=== PATIENT | female | born 1940 | race Caucasian/White ===

== ENCOUNTER → 2018-05-04 08:32 | Outpatient (CLI) | payer MEDICARE, OTHER, SELFPAY ==
--- NOTE | 2018-05-04 08:33 | BI_ITS ---
MAMMOGRAPHY - BILATERAL SCREENING REASON FOR EXAM: Female, 77 years old. Routine annual screening examination. PERTINENT HISTORY: Non-contributory. TECHNIQUE: Digital bilateral breast claudia (3D mammographic acquisition) in the CC and MLO projections. 2-D mediolateral oblique (MLO) and craniocaudad (CC) views of both breasts were obtained. CAD: Full Field Digital Mammography with Computer Added Detection was performed. COMPARISON: Comparison is made with prior study dated April 22, 2017 and April 06, 2016. FINDINGS: Breast Composition: There are scattered areas of fibroglandular density. There are no dominant masses or suspicious calcifications. No other significant abnormalities are identified. There has been no significant change since the prior study. BI/SCREENING MAMM (CAD), BILAT IMPRESSION: Stable bilateral screening mammogram. Yearly follow-up mammogram recommended. (A) ASSESSMENT CATEGORY: BIRADS Category 1: Negative. A letter regarding these results will be sent to the patient by the facility within 30 days. Approximately 10% of breast cancers are not detected by mammography. A normal mammogram should not delay biopsy of a clinically suspicious abnormality. [id number] Electronically Signed: Justino Zuniga MD at 13:50 EDT Tel [phone], Service support ,
== END ==
PROVIDERS: Family Provider Family Medicine; PCP Family Medicine; Visit Provider Family Medicine
DX: Z12.31 Encounter for screening mammogram for malignant neoplasm of breast (principal)
CPT/HCPCS: 77063; 77067

== ENCOUNTER → 2018-05-08 09:33 | Outpatient (CLI) | payer MEDICARE, OTHER, SELFPAY ==
[2018-05-08 12:26] LABS: Anion Gap 6 (5-15); BUN 27 mg/dL (7-18); Calcium,Total 9.3 mg/dL (8.5-10.1); Chloride 105 mmol/L (98-107); Cholesterol 252 mg/dL (200); Creatinine, Serum 0.93 mg/dL (0.55-1.02); EST Glomerular Filtration Rate 62 mL/min (>60); Est Glom Filt Rate - Afr Amer 75 mL/min (>60); Glucose 97 mg/dL (74-106); High Density Lipoprotein 63 mg/dL; Potassium 3.8 mmol/L (3.5-5.1); Sodium Level 139 mmol/L (136-145); Triglycerides 126 mg/dL; Very Low Density Lipoprotein 25 mg/dL (5-40)
== END ==
PROVIDERS: Family Provider Family Medicine; PCP Family Medicine; Visit Provider Family Medicine
DX: I10 Essential (primary) hypertension (principal)
CPT/HCPCS: 36415; 80048; 80061

== ENCOUNTER → 2018-11-08 10:35 | Outpatient (CLI) | payer MEDICARE, OTHER, SELFPAY ==
[2018-10-10 09:33] VITALS: BMI 27.8
--- NOTE | 2018-11-08 10:41 | RAD_ITS ---
STUDY: X-RAY - RIGHT SHOULDER REASON FOR EXAM: Female, 78 years old. Shoulder pain. TECHNIQUE: 4 view(s) of the shoulder. COMPARISON: None. FINDINGS: Normal glenohumeral articulation. Normal acromioclavicular joint. Normal acromion. Normal humeral head and visualized proximal humerus. The soft tissue structures are unremarkable. Normal visualized pulmonary apex. RAD/Shoulder min 2 Views IMPRESSION: Normal x-ray examination of the shoulder. Electronically Signed: Constantin Macedo MD at 10:36 EST Tel , Service support ,
--- NOTE | 2018-11-08 10:41 | RAD_ITS ---
STUDY: X-RAY - BILATERAL HIPS WITHOUT PELVIS REASON FOR EXAM: Female, 78 years old. Left hip pain. TECHNIQUE: 2 views of the right hip, and 2 views of the left hip were obtained. COMPARISON: None. FINDINGS: There are degenerative changes in the lower lumbar spine. The sacroiliac joints appear to be unremarkable. Right Hip: Normal right femoral head, neck, intertrochanteric region and visualized proximal femur. Normal right acetabulum. Normal right hip joint. There is mild irregularity of the greater trochanter without evidence of acute fracture. Left Hip: Normal left femoral head, neck, intertrochanteric region and visualized proximal femur. Normal left acetabulum. Normal left hip joint. There is mild irregularity of the greater trochanter without evidence for acute fracture. Normal bilateral superior and inferior pubic rami , ischial tuberosities and pubic symphysis. There are mild vascular calcifications. RAD/Hips B/L min 2 views w/ Pelvis IMPRESSION: Degenerative changes in the lower lumbar spine. Unremarkable hip joints. Electronically Signed: Constantin Macedo MD at 10:35 EST Tel , Service support ,
== END ==
PROVIDERS: Family Provider Family Medicine; PCP Family Medicine; Referring Provider Family Medicine; Visit Provider Family Medicine
DX: M25.511 Pain in right shoulder (principal); M25.552 Pain in left hip
CPT/HCPCS: 73030; 73521

== ENCOUNTER → 2018-11-10 06:03 | Outpatient (CLI) | payer MEDICARE, OTHER, SELFPAY ==
[2018-10-10 09:33] VITALS: BMI 27.8
[2018-11-10 08:12] LABS: Anion Gap 11 (5-15); BUN 17 mg/dL (7-18); BUN/Creat Ratio 17.9 RATIO (10-20); Calcium,Total 8.9 mg/dL (8.5-10.1); Chloride 106 mmol/L (98-107); Cholesterol 226 mg/dL (200); Creatinine, Serum 0.95 mg/dL (0.55-1.02); EST Glomerular Filtration Rate 61 mL/min (>60); Est Glom Filt Rate - Afr Amer 73 mL/min (>60); Glucose 92 mg/dL (74-106); High Density Lipoprotein 70 mg/dL; Potassium 3.7 mmol/L (3.5-5.1); Sodium Level 143 mmol/L (136-145); Triglycerides 76 mg/dL; Very Low Density Lipoprotein 15 mg/dL (5-40)
== END ==
PROVIDERS: Family Provider Family Medicine; PCP Family Medicine; Referring Provider Family Medicine; Visit Provider Family Medicine
DX: E78.5 Hyperlipidemia, unspecified (principal); I10 Essential (primary) hypertension
CPT/HCPCS: 36415; 80048; 80061

== ENCOUNTER 2018-12-27 09:30 | Outpatient (RCR) | payer MEDICARE, OTHER, SELFPAY ==
[2018-10-10 09:33] VITALS: BMI 27.8
--- NOTE | 2018-11-16 15:27 | HP.PTEVAL_ITS ---
Patient's Visit Information POONAM GOULD is a 78 year old F referred to Physical Therapy by Clyde Downing MD with a diagnosis of PAIN IN LEFT HIP,PAIN LEFT SHOULDER. Date of Evaluation: 11/16/18 Physical Therapist: Ryan Nj PT, Cert MDT, OCS - Visit Plan Frequency: 1-2x /Week Duration: 4 Weeks Plan: RTC/SCAPULAR STRENGTHENING,POSTURAL EX'S,DLS,LUMBAR FLEXION,HIP ROM/FLEXABLITY - Subjective Findings: This 78 y/o female presents to physical therapy with left hip pain and right shoulder . Patient has developed right hip pain about one month and left shoulder since May 2018. Patient had no trauma just incidous onset. Patient shoulder pain right lateral arm deltoid-dull pain. . Patient has location pain lateral hip. Patient symptoms aggraveting factors with shoulder overhead activities obove 90 degrees. Symptoms affects ADL'S and housework tasks. Left hip pain most aggravating factors is sitting to long ,inactivity. Patient had x- rays of shoulder and hip showed OA. Denies parathesia/tingling. Patient sleeping affected by pain in left hip. Patient pain affects QOL and functtion -housework tasks. VOCATION: retired. SOCAIL : . 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 GAIT: normal estevan. NEURO: intact. AROM: shoulder flexion 150 degrees,150 abduction in scapation ER 85 degrees pain at ER an OP. MMT: RTC 4/5,DELTOID 4-/5. LUMBAR ROM: flexion wfl,extension min/mod loss sisde glides min loss. PROM: hip flexion 110 degrees,ER 65 degrees,IR 50 Degrees. MMT: quads/hams 4/5 ,hip flexion 4-/5,hip extension 4-/5,ankle 4/5. - LUMBAR QUADRANT - Special Tests L/S Slump test left side: Negative L/S Slump test right side: Negative L/S Left Straight Leg Raise: Negative L/S Right Straight Leg Raise: Negative Lumbar Standing: Flexion - Mechanical Response: No effect Lumbar Standing: Flexion - Symptoms During Testing: No effect Lumbar Standing: Flexion - Symptoms After Testing: No effect Lumbar Standing: Extension - Mechanical Response: No effect Lumbar Standing: Extension - Symptoms During Testing: Abolishes Lumbar Standing: Extension - Symptoms After Testing: Worse L Hip Scour: Negative L Hip Quadrant - Intraarticular Pathology: Negative L Hip DELMIS - Intraarticular Pathology: Negative L Hip Issa - IT Band: Negative R Shoulder Lift Off Test - Subscapular Tear: Negative R Shoulder Drop Sign - IS Test: Negative R Shoulder Empty Can - SS: Negative R Shoulder Neer - Impingement: Positive R Shoulder Holly Delroy - Impingement: Positive R Shoulder Shrug Sign - OA/Adhesive Capsulitis: Negative - Goals Goal 1:: Independant with HEP Goal Time Frame: 2-4 Weeks Goal 2:: Decrease left hip pain and right shoulder pain by by 70 % or greater to improve function and ADL'S Goal Time Frame: 2-4 Weeks Goal 3:: Patient improve function with right UE with OH with symptoms to improve function Goal Time Frame: 2-4 Weeks Goal 4:: Patient to improve function of recovery without symptoms with hip pain. Goal Time Frame: 2-4 Weeks Goal 5:: Patient to improve Quick dash shoulder score by 5 points Goal Time Frame: 2-4 Weeks - Rehabilitation Potential Physical Therapy Diagnosis: This patient has right shoulder pain possible mild imingement and left hip back pain may be lumbar related with pain in shoulder overhead head activities and hip pain with sitting ,lifting. Rehabilitation Potential: Good - Anticipated Interventions Patient/Client Instruction: Educate patient on: Condition, Plan of Care For the Purpose of:: To decrease pain, To increase ROM, To improve muscle performance and motor function, To increase tolerance to activity/condition/position, To improve ability of physical actions for home/community/work/leisure, To improve gait and locomotor functions, To improve health of tissue, To decrease soft tissue restriction, To increase flexibility/ROM, To reduce risk of recurrence, To improve ability to perform tasks related to life management Therapeutic Exercise to Include: Strength training, Body mechanics, Postural training, Flexibilty training, Active ROM, Dynamic Lumbar Stabilization Comment: RTC/HIP For the Purpose of:: To decrease pain, To increase ROM, To improve muscle performance and motor function, To increase tolerance to activity/condition/position, To improve performance and independence with ADL's, To improve ability of physical actions for home/community/work/leisure, To improve health of tissue, To decrease soft tissue restriction, To increase flexibility/ROM, To reduce risk of recurrence Thank you for the opportunity to evaluate your patient. For Medicare and Medicare HMO plans, please review the plan of care and approve it. It will need to be FAXED BACK to us at [phone] for Medicare purposes. For Medicare only, by signing this I certify the plan of care. Please let me know if there are questions or concerns regarding this plan of care. Physician Signature: Date:
--- NOTE | 2018-12-27 10:28 | HP.PTDCSUM ---
HP - PT D/C Summary It has been my pleasure to treat POONAM GOULD under orders from Clyde Downing MD, for the diagnosis of PAIN IN LEFT HIP,PAIN LEFT SHOULDER for a total of 7 visit(s). Discharge Date: 12/27/18 Please see the following information for a summary of their discharge status. - Subjective Subjective: Doing good.. - Pain Right Hip Pain Intensity (Out of 10): 0 Left Hip Pain Intensity (Out of 10): 0 Right Shoulder Pain Intensity (Out of 10): 0 - Overall Improvement % Improvement: 80 - Objective Objective/Function: AROM: shoulder flexion 160 ,abd 160,ER 90 degrees. MMT: RTC 4/5 ,DELTOID 4/5. LUMBAR ROM: flexion /extension WFL,side glides WFL. MMT: quads/hams/hip 4/5 - Goals Goal 1:: Independant with HEP Goal Progress: Goal Met Goal 2:: Decrease left hip pain and right shoulder pain by by 70 % or greater to improve function and ADL'S Goal Progress: Goal Met Goal 3:: Patient improve function with right UE with OH with symptoms to improve function Goal Progress: Goal Met Goal 4:: Patient to improve function of recovery without symptoms with hip pain. Goal Progress: Goal Met Goal 5:: Patient to improve Quick dash shoulder score by 5 points Goal Progress: Goal Met - Plan Plan: D/C - D/C Information Discharge Comments: HEP If there are questions or concerns regarding this patient's physical therapy, please feel free to call me at [phone]. Thank you for the referral of this patient. Sincerely, Ryan Nj, PT, Cert MDT, OCS
== END 2018-12-27 19:00 | disposition home or self-care (01) ==
LOC: PT 09:30
PROVIDERS: Family Provider Family Medicine; PCP Family Medicine; Referring Provider Family Medicine; Visit Provider Family Medicine
DX: M25.552 Pain in left hip (principal); M25.519 Pain in unspecified shoulder
CPT/HCPCS: 97035; 97110; 97162; 97530

== ENCOUNTER → 2019-01-29 16:44 | Outpatient (CLI) | payer MEDICARE, OTHER, SELFPAY ==
[2018-10-10 09:33] VITALS: BMI 27.8
[2019-01-29 18:11] LABS: Thyroid Stim Hormone (TSH) 2.37 uIU/mL (0.358-3.74)
== END ==
PROVIDERS: Family Provider Family Medicine; PCP Family Medicine; Visit Provider Family Medicine
DX: R63.5 Abnormal weight gain (principal)
CPT/HCPCS: 36415; 84443

== ENCOUNTER → 2019-05-07 08:15 | Outpatient (CLI) | payer MEDICARE, OTHER, SELFPAY ==
[2019-02-22 09:09] VITALS: BMI 27.8
--- NOTE | 2019-05-07 08:18 | BI_ITS ---
MAMMOGRAPHY - BILATERAL SCREENING REASON FOR EXAM: Female, 78 years old. Routine annual screening examination. PERTINENT HISTORY: Non-contributory. TECHNIQUE: Digital bilateral breast shannan (3D mammographic acquisition) in the CC and MLO projections. 2-D mediolateral oblique (MLO) and craniocaudad (CC) views of both breasts were obtained. CAD: Full Field Digital Mammography with Computer Added Detection was performed. COMPARISON: Comparison is made with prior examination dated May 04, 2018 and April 22, 2017. FINDINGS: Breast Composition: There are scattered areas of fibroglandular density. There are no dominant masses or suspicious calcifications. Stable small bilateral axillary lymph nodes. No other significant abnormalities are identified. There has been no significant change since the prior study. BI/SCREEN MAMM (CAD) W/SHANNAN BILAT IMPRESSION: Stable bilateral screening mammogram. Yearly follow-up mammogram recommended. (A) ASSESSMENT CATEGORY: BIRADS Category 2: Benign. A letter regarding these results will be sent to the patient by the facility within 30 days. Approximately 10% of breast cancers are not detected by mammography. A normal mammogram should not delay biopsy of a clinically suspicious abnormality. [id number] Electronically Signed: Justino Zuniga, at 10:00 EDT , Service support ,
== END ==
PROVIDERS: Family Provider Family Medicine; PCP Family Medicine; Referring Provider Family Medicine; Visit Provider Family Medicine
DX: Z12.31 Encounter for screening mammogram for malignant neoplasm of breast (principal)
CPT/HCPCS: 77063; 77067

== ENCOUNTER 2019-08-01 09:00 | Outpatient (RCR) | payer MEDICARE, OTHER, SELFPAY ==
[2019-02-22 09:09] VITALS: BMI 27.8
--- NOTE | 2019-06-07 12:24 | HP.PTEVAL_ITS ---
Patient's Visit Information POONAM GOULD is a 78 year old F referred to Physical Therapy by Vicky Katz DPM with a diagnosis of Achilles Tendinopathy. Date of Evaluation: 06/07/19 Physical Therapist: Kristina Amezcua DPT - Visit Plan Frequency: 2x /Week Duration: 4 Weeks Plan: Focus on LE and core strength/stabilization- condense HEP stretching/strength program to manageable size with good core strength. Agility as strength and pain allows. - Subjective Findings: Patient reports that Dr. Katz sent her for an achilles problem. Right foot problems started about 3 years and told her PCP told her to keep wa lking and doing agility on it. PCP had her do compression sleeve and push through. Saw Dr. Katz about a month ago due to not getting better. Had 3 EPAT- she is 95% better. Does wear a heel lift in the right shoe. Was told to stop doing agility and running with her dogs. Was sent to PT for dry needling and getting her back into agility. Pain is located right on achilles- pain does radiate to the calf but only walkning up a hill. Worst: 5/10 Agg: walking up hills Best: 0/10 most of the time. Eases: deep tissue massage- hand held device. Pain instantly goes away. Describes the pain as grabbing. No N/T in the foot. Sleep: not disturbed. 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 Has not ridden since December- due to putting her horse down. Trains 1x a week and practices at home everyday- 30 min. Last time she practiced was in December. Can't do obedience for more than 90 minutes. If she sits down the pain instantly goes away. 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 X-rays- no MRI at this time. PMHx/Meds: no changes- scanned in chart. - Objective Posture: FH, RS- can correct but does not maintain. Gait: no deviation noted in walking or running. Observation: mild valgus in the rearfoot in stance- mild pronation-wearing heel lift in the right shoe- wearing very minimalist shoes- poor support. HR/TR: able without UE A or pain. SLS: 10 sec with increased muscle activation and pes planus. Palpation: tender along achilles- increased thickness along distal achilles. ROM: DF: 8 degrees, PF: 50 degrees, Inv: 30 degrees Ever: 20 degrees. Strength: Ankle: 5/5, Knee: 4+/5, Hip: IR/ER: 4-/5, Flx: 4/5, Ext: 4/5, Add: 4+/5, Abd: 4/5 Core: fair minus. Flex: Gastroc: moderate, Soleus: mild Hamstring: moderate - Goals Goal 1:: Patient will be I with HEP and progression Goal Time Frame: 4-6 Weeks Goal 2:: Patient will maintain proper posture t/o tx session to demo increased core s/s Goal Time Frame: 4-6 Weeks Goal 3:: Patient will demo minimal restriction in gastroc Goal Time Frame: 4-6 Weeks Goal 4:: Patient will return to all normal ADL's/recreational activities with 0/10 pain Goal Time Frame: 4-6 Weeks - Rehabilitation Potential Physical Therapy Diagnosis: Patient presents with hypomobility- she has decreased core strength/stabilization leading to gait abnormalities and increased pain with ADL's/recreational activities. Rehabilitation Potential: Good - Anticipated Interventions Patient/Client Instruction: Educate patient on: Benefits of Fitness Program Therapeutic Exercise to Include: Strength training, Endurance training, Balance training, Agility training, Body mechanics, Postural training, Flexibilty training, Gait and locomotor training, Passive ROM, Active ROM, Dynamic Lumbar Stabilization, Scapular Strength/Stabilization For the Purpose of:: To improve muscle performance and motor function Manual Therapy Techniques to Include: Scar massage, Mobilization, Passive ROM, Functional dry needling, Soft tissue mobilization For the Purpose of:: To improve nutrient delivery to tissue TENS: Yes Cryotherapy (ice pack, ice massage): Yes Thermo therapy (hot pack): Yes Ultrasound (thermal/non thermal): Yes For the Purpose of:: To decrease pain, To improve nutrient delivery to tissue Thank you for the opportunity to evaluate your patient. For Medicare and Medicare HMO plans, please review the plan of care and approve it. It will need to be FAXED BACK to us at [phone] for Medicare purposes. For Medicare only, by signing this I certify the plan of care. Please let me know if there are questions or concerns regarding this plan of care. Physician Signature: Date:
--- NOTE | 2019-09-27 10:49 | HP.PTDCSUM ---
HP - PT D/C Summary It has been my pleasure to treat POONAM GOULD under orders from Vicky Katz DPM, for the diagnosis of Achilles Tendinopathy for a total of 9 visit(s). Discharge Date: Please see the following information for a summary of their discharge status. - Subjective Subjective: Pt. reports achilles felt great. No pain or issues lately. 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 - Overall Improvement % Improvement: 100 - Objective Objective/Function: Pt. completed all exercises with no incidence. Pt. responded well to new exercises aimed at simulating more agility-type movements. Some LOB w/ SLS exercises, but nothing other than normal. R foot appears ready reutrn to agility competition. - Goals Goal 1:: Patient will be I with HEP and progression Goal Progress: Goal Met Goal 2:: Patient will maintain proper posture t/o tx session to demo increased core s/s Goal Progress: Progressing Goal 3:: Patient will demo minimal restriction in gastroc Goal Progress: Goal Met Goal 4:: Patient will return to all normal ADL's/recreational activities with 0/10 pain Goal Progress: Goal Met - Plan Plan: 08/01/19 Last visit of treatment - D/C and cleared to return to agility dog competitions, cont. w/ HEP I. - D/C Information If there are questions or concerns regarding this patient's physical therapy, please feel free to call me at [phone]. Thank you for the referral of this patient. Sincerely, Kristina Amezcua DPT
== END 2019-08-01 19:00 | disposition home or self-care (01) ==
LOC: PT 09:00
PROVIDERS: Family Provider Family Medicine; PCP Family Medicine; Referring Provider Podiatrist; Visit Provider Podiatrist
DX: M76.61 Achilles tendinitis, right leg (principal); M25.571 Pain in right ankle and joints of right foot; M21.6X1 Other acquired deformities of right foot
CPT/HCPCS: 97110; 97161

== ENCOUNTER → 2019-08-16 09:40 | Outpatient (CLI) | payer MEDICARE, OTHER, SELFPAY ==
[2019-02-22 09:09] VITALS: BMI 27.8
[2019-08-16 12:43] LABS: Anion Gap 6 (5-15); BUN 15 mg/dL (7-18); BUN/Creat Ratio 17.8 RATIO (10-20); Calcium,Total 9.8 mg/dL (8.5-10.1); Chloride 105 mmol/L (98-107); Cholesterol 243 mg/dL (200); Creatinine, Serum 0.84 mg/dL (0.55-1.02); EST Glomerular Filtration Rate 69 mL/min (>60); Est Glom Filt Rate - Afr Amer 84 mL/min (>60); Glucose 100 mg/dL (74-106); High Density Lipoprotein 64 mg/dL; Potassium 4.2 mmol/L (3.5-5.1); Sodium Level 138 mmol/L (136-145); Triglycerides 123 mg/dL; Very Low Density Lipoprotein 25 mg/dL (5-40)
== END ==
PROVIDERS: Family Provider Family Medicine; PCP Family Medicine; Referring Provider Family Medicine; Visit Provider Family Medicine
DX: I10 Essential (primary) hypertension (principal)
CPT/HCPCS: 36415; 80048; 80061

== ENCOUNTER → 2020-06-19 13:25 | Outpatient (CLI) | payer MEDICARE, SELFPAY ==
[2019-02-22 09:09] VITALS: BMI 27.8
--- NOTE | 2020-06-19 13:27 | BI_ITS ---
MAMMOGRAPHY - BILATERAL SCREENING REASON FOR EXAM: Female, 79 years old. Routine annual screening examination. PERTINENT HISTORY: Non-contributory. TECHNIQUE: Digital bilateral breast shannan (3D mammographic acquisition) in the CC and MLO projections. 2-D mediolateral oblique (MLO) and craniocaudad (CC) views of both breasts were obtained. CAD: Full Field Digital Mammography with Computer Added Detection was performed. COMPARISON: Comparison is made with prior examination dated 05/07/2019 and 05/04/2018. FINDINGS: Breast Composition: There are scattered areas of fibroglandular density. There are no dominant masses or suspicious calcifications. Stable benign-appearing bilateral axillary lymph nodes. No other significant abnormalities are identified. There has been no significant change since the prior study. BI/SCREEN MAMM (CAD) W/SHANNAN BILAT IMPRESSION: Stable bilateral screening mammogram. Yearly follow-up mammogram recommended. (A) ASSESSMENT CATEGORY: BIRADS Category 2: Benign. A letter regarding these results will be sent to the patient by the facility within 30 days. Approximately 10% of breast cancers are not detected by mammography. A normal mammogram should not delay biopsy of a clinically suspicious abnormality. [id number] Electronically Signed: Justino Zuniga, at 15:13 EDT , Service support ,
--- NOTE | 2020-06-19 13:30 | BD_ITS ---
STUDY: DUAL ENERGY X-RAY ABSORPTIOMETRY / DXA REASON FOR EXAM: Female, 79 years old. Age of krista- 41. pat is 4''8.5'' a loss of 3.5 and quot; per pat. Does a little to moderate exercising. TECHNIQUE: Bone Mineral Density (BMD) measurements of lumbar spine and bilateral hips were obtained. COMPARISON: None. FINDINGS: Lumbar Spine (L1-L4): g/cm2 (1.245) / T-score (0.7) / Z-score (2.5) Findings are suggestive of normal bone density with a low fracture risk. Left Femur Total: g/cm2 (0.871) / T-score (-1.1) / Z-score (0.8) Left Femoral Neck: g/cm2 (0.787) / T-score (-1.8) / Z-score (0.2) Right Femur Total: g/cm2 (0.828) / T-score (-1.4) / Z-score (0.5) Right Femoral Neck: g/cm2 (0.812) / T-score (-1.6) / Z-score (0.4) BD/Dexa Bone Density Study IMPRESSION: The patient is considered osteopenic as outlined below according to World Uriel Organization (WHO) criteria with a moderate fracture risk. Reference Information: The T-score is the number of standard deviations above or below the standard which is normal for young adults at their peak bone mineral density. The World Health Organization (WHO) interprets the T-scores as follows: Above -1 Normal bone density Between -1 and -2.5 Osteopenia Equal to / or below -2.5 Osteoporosis As a practical clinical guideline, osteopenia may be graded as follows: Mild -1 through -1.5 Moderate -1.6 through -2.0 Severe -2.1 through -2.4 The Z-score is the number of standard deviations above or below age-matched controls. A Z-score of less than -1.5 would be considered abnormal. References: 1. NIH Osteoporosis and Related Bone Diseases http://www.osteo.org 2. International Society for Clinical Densitometry http://www.iscd.org 3. National Osteoporosis Foundation http://www.nof.org Electronically Signed: Justino Zuniga, at 15:20 EDT , Service support ,
== END ==
PROVIDERS: PCP Family Medicine; Referring Provider Family Medicine; Visit Provider Family Medicine
DX: Z12.31 Encounter for screening mammogram for malignant neoplasm of breast (principal); Z78.0 Asymptomatic menopausal state
CPT/HCPCS: 77063; 77067; 77080

== ENCOUNTER → 2021-03-11 08:52 | Outpatient (CLI) | payer MEDICARE, SELFPAY ==
[2021-02-23 09:25] VITALS: BMI 27.8
[2021-03-11 12:43] LABS: Anion Gap 8 (5-15); BUN 20 mg/dL (7-18); BUN/Creat Ratio 24.9 RATIO (10-20); Calcium,Total 9.1 mg/dL (8.5-10.1); Chloride 107 mmol/L (98-107); Cholesterol 228 mg/dL (200); EST Glomerular Filtration Rate 73 mL/min (>60); Est Glom Filt Rate - Afr Amer 89 mL/min (>60); Glucose 95 mg/dL (74-106); High Density Lipoprotein 72 mg/dL; Potassium 4.4 mmol/L (3.5-5.1); Sodium Level 141 mmol/L (136-145); Triglycerides 85 mg/dL; Very Low Density Lipoprotein 17 mg/dL (5-40)
== END ==
PROVIDERS: PCP Family Medicine; Referring Provider Family Medicine; Visit Provider Family Medicine
DX: I10 Essential (primary) hypertension (principal)
CPT/HCPCS: 36415; 80048; 80061

== ENCOUNTER → 2021-07-16 11:34 | Outpatient (CLI) | payer MEDICARE, SELFPAY ==
--- NOTE | 2021-07-16 11:52 | BI_ITS ---
MAMMOGRAPHY - BILATERAL SCREENING REASON FOR EXAM: Female, 80 years old. Routine annual screening examination. PERTINENT HISTORY: Non-contributory. TECHNIQUE: Digital bilateral breast shannan (3D mammographic acquisition) in the CC and MLO projections. 2-D mediolateral oblique (MLO) and craniocaudad (CC) views of both breasts were obtained. CAD: Full Field Digital Mammography with Computer Added Detection was performed. COMPARISON: Comparison is made with prior study dated 06/19/2020 and 05/07/2019. FINDINGS: Breast Composition: There are scattered areas of fibroglandular density. There are no dominant masses or suspicious calcifications. No other significant abnormalities are identified. There has been no significant change since the prior study. BI/SCRN MAMM (CAD)W/SHANNAN BILAT IMPRESSION: Stable bilateral screening mammogram. Yearly follow-up mammogram recommended. (A) ASSESSMENT CATEGORY: BIRADS Category 1: Negative. A letter regarding these results will be sent to the patient by the facility within 30 days. Approximately 10% of breast cancers are not detected by mammography. A normal mammogram should not delay biopsy of a clinically suspicious abnormality. [id number] Electronically Signed: Justino Zuniga MD at 12:38 EDT , Service support ,
== END ==
PROVIDERS: PCP Family Medicine; Referring Provider Family Medicine; Visit Provider Family Medicine
DX: Z12.31 Encounter for screening mammogram for malignant neoplasm of breast (principal)
CPT/HCPCS: 77063; 77067

== ENCOUNTER → 2021-09-08 08:06 | Outpatient (CLI) | payer MEDICARE, SELFPAY ==
[2021-09-08 10:48] LABS: ALB/GLOB Ratio 0.9 RATIO (0.9-2.4); AST(SGOT) 26 U/L (15-37); Alanine Aminotransfer ALT/SGPT 24 U/L (13-56); Albumin, Serum 3.4 g/dL (3.2-5.0); Alkaline Phosphatase 81 U/L (45-117); Anion Gap 7 (5-15); BUN 22 mg/dL (7-18); BUN/Creat Ratio 23.7 RATIO (10-20); Calcium,Total 9.1 mg/dL (8.5-10.1); Chloride 105 mmol/L (98-107); Cholesterol 213 mg/dL (200); Creatinine, Serum 0.93 mg/dL (0.55-1.02); EST Glomerular Filtration Rate 62 mL/min (>60); Est Glom Filt Rate - Afr Amer 75 mL/min (>60); Globulin 3.8 g/dL (2.2-4.2); Glucose 99 mg/dL (74-106); High Density Lipoprotein 69 mg/dL; Potassium 4.1 mmol/L (3.5-5.1); Protein, Total 7.2 g/dL (6.4-8.2); Sodium Level 141 mmol/L (136-145); Triglycerides 84 mg/dL; Very Low Density Lipoprotein 17 mg/dL (5-40)
== END ==
PROVIDERS: PCP Family Medicine; Referring Provider Family Medicine; Visit Provider Family Medicine
DX: E78.5 Hyperlipidemia, unspecified (principal)
CPT/HCPCS: 36415; 80053; 80061

== ENCOUNTER → 2021-09-18 15:25 | Outpatient (CLI) | payer MEDICARE, SELFPAY ==
--- NOTE | 2021-09-18 11:50 | LES_PTH ---
PATIENT: POONAM GOULD LOC: [facility] U#:[id number] AGE/SX: 85/F ROOM: RE09/18/[address]: Dr. 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 See comment. AM:erasto 09/22/2021 COMMENT The lesion extends to one peripheral margin of excision. MICROSCOPIC DESCRIPTION Slides are reviewed. GROSS DESCRIPTION Received in fixative is one container labeled with the patient's name and designated left arm. The specimen consists of a light crockett shaved biopsy of skin measuring 0.9 x 0.6 x 0.1 cm. The specimen is inked, serially sectioned and totally submitted in one cassette. / AM:erasto 09/21/21 TC:0 CPT: 15155
== END ==
PROVIDERS: PCP Family Medicine; Referring Provider Family Medicine; Visit Provider Family Medicine
DX: L98.9 Disorder of the skin and subcutaneous tissue, unspecified (principal)
CPT/HCPCS: 88305

== ENCOUNTER → 2022-03-17 | Outpatient (CLI) | payer MEDICARE, SELFPAY ==
[2022-03-17 12:56] LABS: Anion Gap 4 (5-15); BUN 25 mg/dL (7-18); BUN/Creat Ratio 26.5 RATIO (10-20); Calcium,Total 9.9 mg/dL (8.5-10.1); Chloride 104 mmol/L (98-107); Creatinine, Serum 0.94 mg/dL (0.55-1.02); EST Glomerular Filtration Rate 61 mL/min (>60); Est Glom Filt Rate - Afr Amer 73 mL/min (>60); Glucose 91 mg/dL (74-106); Potassium 4.1 mmol/L (3.5-5.1); Sodium Level 138 mmol/L (136-145)
== END | disposition home or self-care (01) ==
LOC: MFPLAB 10:43
PROVIDERS: PCP Family Medicine; Referring Provider Family Medicine; Visit Provider Family Medicine
DX: I10 Essential (primary) hypertension (principal)
CPT/HCPCS: 36415; 80048

== ENCOUNTER → 2022-09-15 | Outpatient (CLI) | payer MEDICARE, SELFPAY ==
[2022-09-15 13:09] LABS: Anion Gap 7 (5-15); BUN 21 mg/dL (7-18); BUN/Creat Ratio 24.6 RATIO (10-20); Calcium,Total 9.1 mg/dL (8.5-10.1); Chloride 107 mmol/L (98-107); Cholesterol 233 mg/dL (200); Creatinine, Serum 0.85 mg/dL (0.55-1.02); EST Glomerular Filtration Rate 68 mL/min (>60); Est Glom Filt Rate - Afr Amer 82 mL/min (>60); Glucose 104 mg/dL (74-106); High Density Lipoprotein 69 mg/dL; Potassium 4.1 mmol/L (3.5-5.1); Sodium Level 139 mmol/L (136-145); Triglycerides 105 mg/dL; Very Low Density Lipoprotein 21 mg/dL (5-40)
== END | disposition home or self-care (01) ==
LOC: MFPLAB 10:48
PROVIDERS: PCP Family Medicine; Referring Provider Family Medicine; Visit Provider Family Medicine
DX: I10 Essential (primary) hypertension (principal)
CPT/HCPCS: 36415; 80048; 80061

== ENCOUNTER → 2023-03-17 | Outpatient (CLI) | payer MEDICARE, SELFPAY ==
--- NOTE | 2023-03-17 16:11 | BI_ITS ---
MAMMOGRAPHY - BILATERAL SCREENING REASON FOR EXAM: Female, 82 years old. Routine annual screening examination. PERTINENT HISTORY: Non-contributory. TECHNIQUE: Digital bilateral breast shannan (3D mammographic acquisition) in the CC and MLO projections. 2-D mediolateral oblique (MLO) and craniocaudad (CC) views of both breasts were obtained. CAD: Full Field Digital Mammography with Computer Added Detection was performed. COMPARISON: Comparison is made with prior study dated July 16, 2021 and June 19, 2020. FINDINGS: Breast Composition: There are scattered areas of fibroglandular density. There are no dominant masses or suspicious calcifications. Stable small benign-appearing left axillary lymph node. No other significant abnormalities are identified. There has been no significant change since the prior study. BI/SCRN MAMM (CAD)W/SHANNAN BILAT IMPRESSION: Stable bilateral screening mammogram. Yearly follow-up mammogram recommended. (A) ASSESSMENT CATEGORY: BIRADS Category 2: Benign. A letter regarding these results will be sent to the patient by the facility within 30 days. Approximately 10% of breast cancers are not detected by mammography. A normal mammogram should not delay biopsy of a clinically suspicious abnormality. [id number] Electronically Signed: Justino Zuniga MD at 8:27 EDT ,
== END | disposition home or self-care (01) ==
LOC: OPBI 16:10
PROVIDERS: PCP Family Medicine; Referring Provider Family Medicine; Visit Provider Family Medicine
DX: Z12.31 Encounter for screening mammogram for malignant neoplasm of breast (principal)
CPT/HCPCS: 77063; 77067

== ENCOUNTER → 2023-09-12 | Outpatient (CLI) | payer MEDICARE, SELFPAY ==
[2023-09-12 12:31] LABS: Anion Gap 6 (5-15); BUN 19 mg/dL (7-18); BUN/Creat Ratio 22.8 RATIO (10-20); Chloride 108 mmol/L (98-107); Cholesterol 234 mg/dL (200); Creatinine, Serum 0.83 mg/dL (0.55-1.02); EST Glomerular Filtration Rate 70 mL/min (>60); Est Glom Filt Rate - Afr Amer 85 mL/min (>60); Glucose 106 mg/dL (74-106); High Density Lipoprotein 77 mg/dL; Potassium 4.3 mmol/L (3.5-5.1); Sodium Level 142 mmol/L (136-145); Triglycerides 92 mg/dL; Very Low Density Lipoprotein 18 mg/dL (5-40)
== END | disposition home or self-care (01) ==
LOC: MFPLAB 10:40
PROVIDERS: PCP Family Medicine; Visit Provider Family Medicine
DX: I10 Essential (primary) hypertension (principal)
CPT/HCPCS: 36415; 80048; 80061

== ENCOUNTER 2024-02-07 09:27 | Inpatient (IN) | payer MEDICARE, SELFPAY ==
[2024-02-07] VITALS (19 sets, daily range): BP systolic 105–166; BP diastolic 1–101; PULSE 82–103; RESP 12–25; TEMP 36.2–37.5; O2SAT 94–100; BMI 29.1; BMI 26.4; BMI 26.7
--- NOTE | 2024-02-07 09:30 | ED.RN ---
SPOKE WITH DR. STAUFFER, JUST BRING HER STRAIGHT BACK!
--- NOTE | 2024-02-07 09:36 | NURSING ---
STROKE ALERT CALLED
--- NOTE | 2024-02-07 09:36 | NURSING ---
NO OLD EKGS
--- NOTE | 2024-02-07 09:38 | CT_ITS ---
STUDY: CT HEAD STROKE PROTOCOL W/O CONTRAST INJECTION REASON FOR EXAM: Female, 83 years old. Neuro deficit, acute, stroke suspected RADIATION DOSAGE (If Supplied By Facility): CTDIvol = ( 44.99 ) mGy, DLP = ( 745.49 ) mGycm TECHNIQUE: Transaxial CT imaging of the brain was performed without administration of intravenous contrast material. Individualized dose optimization techniques were used for this CT. COMPARISON: No relevant priors. FINDINGS: Normal soft tissue structures. Normal calvarium. There is mild cerebral atrophy with widening of the extra-axial spaces and ventricular dilatation. There is evidence of a decreased attenuation involving the posterior aspect of the left temporal parietal occipital lobes. This is suggestive of a CVA in the distribution of the left posterior cerebral artery. Normal basal ganglia and thalami. Normal brainstem. Normal cerebellum. There is no intracranial hemorrhage. Atherosclerotic calcification of the cavernous portions of the internal carotid arteries bilaterally. Normal visualized paranasal sinuses. ASPECT score: 8 CT/STROKE Brain/Head without Cont IMPRESSION: Findings suggestive of acute ischemic changes involving the posterior left temporal parietal occipital lobes in the distribution of the left posterior cerebral artery. N.B. : The above Results were Read Back by Justino Zuniga MD to Anselmo Potts and understanding confirmed on 02/07/2024 10:00:00 (ET). Electronically Signed: Justino Zuniga MD at 10:01 EDT ,
--- NOTE | 2024-02-07 09:38 | EDS_ITS ---
HPI History of Present Illness Chief Complaint: Stroke Alert Narrative Narrative: 83-year-old female presenting with confusion. Patient went to see Dr. Montgomery today as her states she was not acting right. Dr. Montgomery referred him to the emergency room however the did not want to go by ambulance and he brought her by car. Her states that last night at 11 PM when they went to bed she was normal. Overnight he heard her get up and use the restroom a couple of times and he thought he heard something fall. He shouted out to her and she stated to him that she was fine. Her back to sleep. He states that last night she set the alarm for the house and this morning he noted that she could not turn it off. She tried to get in the car on the way to the physician's office and could not open the door. She is been having trouble communicating and following commands. Patient's states that about a week ago she had a tick bite and she remove the tick herself. She stated to him that she removed it completely. She has not had any abnormal symptoms, fevers since then. He does state that she seemed to be short of breath this weekend but then she started she felt better. They did not get seen for this. [facility] Medical History Arthritis DDD (degenerative disc disease), lumbar Environmental allergies Glaucoma Hypertension Migraines TMJ (temporomandibular joint syndrome) Home Medications amlodipine 5 mg-valsartan 160 mg-hydrochlorothiazide 12.5 mg tablet 1 tab PO QDAY 12/20/17 [History Last Taken Unknown] lactobacillus combination no.9 4 billion cell capsule (Adult 50 Plus Probiotic) 4,000 mmu cells PO QDAY 12/20/17 [History Last Taken Unknown] hydrochlorothiazide 12.5 mg capsule 12.5 mg PO DAILY 02/07/24 [History Last Taken Unknown] losartan 50 mg tablet 50 mg PO DAILY 02/07/24 [History Last Taken Unknown] meloxicam 7.5 mg tablet 7.5 mg PO DAILY 02/07/24 [History Last Taken Unknown] sertraline 50 mg tablet 50 mg PO DAILY 02/07/24 [History Last Taken Unknown] Allergy/AdvReac Type Severity Reaction Status Date / Time No Known Allergies Allergy Unverified 11/07/23 10:19 Social History Smoking Status: Never smoker alcohol intake: never substance use type: does not use what type of physical activity do you participate in: walking and aerobics frequency: 3-4 times per week ROS ROS ED Review of Systems ROS Unobtainable: due to mental condition EXAM Physical Exam Const Vital Signs: 02/07/24 09:34 02/07/24 09:36 02/07/24 09:44 Temperature 97.8 F 97.8 F Temperature Source Temporal Temporal Pulse Rate 99 99 Respiratory Rate 16 18 Blood Pressure 106/92 H 106/92 H Blood Pressure Mean 96 96 Pulse Ox 100 99 99 Oxygen Delivery Method Room Air Room Air Room Air 02/07/24 09:51 02/07/24 10:20 02/07/24 10:20 Temperature Temperature Source Pulse Rate 95 95 95 Respiratory Rate 15 14 16 Blood Pressure 148/84 H 121/87 H 121/97 H Blood Pressure Mean 105 98 105 Pulse Ox 99 97 97 Oxygen Delivery Method Room Air Room Air Room Air 02/07/24 10:51 02/07/24 11:30 02/07/24 11:00 Temperature Temperature Source Pulse Rate 101 H 101 H 94 Respiratory Rate 19 H 25 H 18 Blood Pressure 120/101 H 108/74 114/81 H Blood Pressure Mean 107 85 92 Pulse Ox 95 97 97 Oxygen Delivery Method Room Air Room Air Room Air 02/07/24 12:00 02/07/24 12:00 Temperature Temperature Source Pulse Rate 102 H 99 Respiratory Rate 21 H 16 Blood Pressure 117/70 126/84 H Blood Pressure Mean 85 98 Pulse Ox 94 97 Oxygen Delivery Method Room Air Room Air Positive well nourished General Appearance ED: NAD HEENT Reports moist mucous membranes Eyes PERRL and EOMs intact bilaterally Chest Wall inspection of chest normal and palpation of chest normal Resp normal respiratory effort and clear to auscultation bilaterally Auscultation: Negative for rales, rhonchi or wheezes GI normal to inspection, nondistended, normoactive bowel sounds Extremity normal to inspection Neuro CN's II-XII intact bilaterally and no sensory deficits noted Neuro Narrative: Confused Psych Psych Narrative: Confused Skin no wounds NIHSS NIHSS Initial: 1a Level of Consciousness: 0 1b LOC Questions (Score 2 if aphasic/stupor): 2 1c LOC Commands (Only score 1st attempt): 1 2 Best Gaze (If aphasic, use reflexive mvmts.): 0 3 Visual: 0 4 Facial Palsy: 0 5 Motor Arm Right (UN = amputation/fusion): 0 5 Motor Arm Left: 0 6 Motor Leg Right: 0 6 Motor Leg Left: 0 7 Limb ataxia (Only + if out of proportion): 0 8 Sensory (Aphasia/stupor=0 or 1, coma=2): 0 9 Best Language: 2 10 Dysarthria (mute, coma=2, intubated=UN): 0 11 Extinction and Inattention (only scored if +): 1 Total Score: 6 MDM MDM MDM Narrative Medical decision making narrative: Patient presenting with strokelike symptoms. NIH stroke scale score is 6. She is not within the window for tPA. Stroke team was called because she would be in the window if she had an LVO. Patient taken to CT CT brain was interpreted Findings suggestive of acute ischemic changes involving the posterior left temporal parietal occipital lobes in the distribution of the left posterior cerebral artery. CBC and BMP were unremarkable. High-sensitivity opponent is 18. EKG on my interpretation is sinus rhythm at 94 bpm without sign ischemic change or dysrhythmia. Chest x-ray my interpretation did not show any acute process. CTA was negative for LVO. Discussed the acute stroke findings with the neurologist Dr. Child. He stated that the patient can stay here for the rest of the workup. Discussed with the . Patient was given aspirin.. Request was made for me to order the MRI in the emergency room so they can be done on the way up to the floor. This was ordered. Patient in stable condition. Impression: 1. Acute CVA Lab Data Attestation: I reviewed the patient's lab results. Labs: Laboratory Results - last 24 hr 02/07/24 02/07/24 09:35 09:38 WBC 8.7 RBC 4.19 L Hgb 11.8 L Hct 36.0 L MCV 85.9 MCH 28.2 MCHC 32.8 RDW Std Deviation 44.7 H RDW Coeff of Edi 14.1 Plt Count 410 MPV 8.8 Immature Gran % (Auto) 0.300 Neut % (Auto) 75.3 H Lymph % (Auto) 14.7 L [place] % (Auto) 6.3 Eos % (Auto) 2.8 Baso % (Auto) 0.6 Absolute Neuts (auto) 6.6 Absolute Lymphs (auto) 1.28 Nucleated RBC % 0 PT 14.3 INR 1.1 APTT 38.9 H Sodium 138 Potassium 3.6 Chloride 106 Carbon Dioxide 24.0 Anion Gap 8 BUN 25 H Creatinine 0.95 Estim Creat Clear Calc 41.31 Est GFR (MDRD) Af Amer 72 Est GFR (MDRD) Non-Af 60 BUN/Creatinine Ratio 26.2 H Glucose 153 H Calcium 9.5 Troponin I High Sens 18 POC Glucose 135 H Radiography Diagnostic Testing: Clinical Impression(s) from Imaging Studies Brain CT 02/07/24 09:38 IMPRESSION: Findings suggestive of acute ischemic changes involving the posterior left temporal parietal occipital lobes in the distribution of the left posterior cerebral artery. N.B. : The above Results were Read Back by Justino Zuniga MD to Anselmo Potts and understanding confirmed on 02/07/2024 10:00:00 (ET). Electronically Signed: Justino Zuniga MD at 10:01 EDT , ADDENDUM: 02/07/24 1008 IMPRESSION: Findings suggestive of acute ischemic changes involving the posterior left temporal parietal occipital lobes in the distribution of the left posterior cerebral artery. N.B. : The above Results were Read Back by Justino Zuniga MD to Anselmo Potts and understanding confirmed on 02/07/2024 10:00:00 (ET). Electronically Signed: Justino Zuniga MD at 10:01 EDT , Head/Neck CTA 02/07/24 09:43 IMPRESSION: There is 50-69% stenosis at the origin of the right internal carotid artery and less than 50% stenosis at the origin of the left internal carotid artery. Decreased flow to the left posterior parietal occipital lobes. N.B. : The above Results were Read Back by Justino Zuniga MD to Anselmo Potts and understanding confirmed on 02/07/2024 10:06:13 (ET). Electronically Signed: Justino Zuniga MD at 10:07 EDT , ADDENDUM: 02/07/24 1014 IMPRESSION: There is 50-69% stenosis at the origin of the right internal carotid artery and less than 50% stenosis at the origin of the left internal carotid artery. Decreased flow to the left posterior parietal occipital lobes. N.B. : The above Results were Read Back by Justino Zuniga MD to Anselmo Potts and understanding confirmed on 02/07/2024 10:06:13 (ET). Electronically Signed: Justino Zuniga MD at 10:07 EDT , Chest X-Ray 02/07/24 10:30 IMPRESSION: No acute abnormality is seen. Electronically Signed: Justino Zuniga MD at 10:43 EDT , Discharge Plan Triage Chief Complaint: Stroke Alert ED Provider: Anselmo Potts Dx/Rx/DC Orders Prescriptions: No Action xtmpaisiyy-eeuqmycdu-qainsqkgu 5-160-12.5 mg tablet 1 tab PO QDAY lactobacillus combination no.9 [Adult 50 Plus Probiotic] 4 billion cell capsule 4,000 mmu cells PO QDAY losartan 50 mg tablet 50 mg PO DAILY meloxicam 7.5 mg tablet 7.5 mg PO DAILY hydrochlorothiazide 12.5 mg capsule 12.5 mg PO DAILY sertraline 50 mg tablet 50 mg PO DAILY Primary Care Provider: Clyde Downing Referrals: Clyde Downing MD [Primary Care Provider] -
--- NOTE | 2024-02-07 09:38 | EKG12_ITS ---
Test Reason : STROKE ALERT Blood Pressure : / mmHG Vent. Rate : 094 BPM Atrial Rate : 094 BPM P-R Int : 168 ms QRS Dur : 070 ms QT Int : 358 ms P-R-T Axes : 042 039 044 degrees QTc Int : 447 ms Normal sinus rhythm Normal ECG Confirmed by CRISTINA NGUYEN MD ([id number]), graphics editor RICKY HIGUERA ([id number]) on 02/09/2024 7:04:45 AM Referred By: Confirmed By:CRISTINA NGUYEN MD
--- NOTE | 2024-02-07 09:43 | CT_ITS ---
STUDY: CTA HEAD AND NECK WITH CONTRAST REASON FOR EXAM: Female, 83 years old. Stroke RADIATION DOSAGE (If Supplied By Facility): CTDIvol = ( 17.20 ) mGy, DLP = ( 607.12 ) mGycm TECHNIQUE: CT angiography was performed with a multi-detector CT scanner. Data acquisition was obtained from the skull base through the vertex following intravenous administration of IV 100mL Isovue-370. MIP images were reconstructed from the axial data set. Post-processing of the angiographic images was performed, with multiplanar reformation and 3D reconstruction. Individualized dose optimization techniques were used for this CT. COMPARISON: No relevant priors. FINDINGS: Normal bilateral petrous carotid arteries. Normal right cavernous carotid artery with a normal supraclinoid bifurcation. Normal left cavernous carotid artery with a normal supraclinoid bifurcation. Normal right A1 segments of the anterior cerebral artery. Normal left A1 segments of the anterior cerebral artery. Normal intact anterior communicating artery (ACOM). Normal bilateral A2 segments of the anterior cerebral arteries. Normal right M1 and M2 segments of the middle cerebral arteries, with a normal M1 bifurcation. Normal left M1 and M2 segments of the middle cerebral arteries, with a normal M1 bifurcation. Normal right posterior communicating artery (PCOM). There is a persistent origin of the left posterior cerebral artery with absence of the posterior communicating artery (PCOM). Normal bilateral vertebral arteries. Normal basilar artery with a normal basilar bifurcation. The visualized bilateral superior cerebellar (SCA) arteries are normal. Normal bilateral P1, P2 and visualized P3 segments of the posterior cerebral arteries. Decreased blood flow to the left posterior parietal occipital lobes. There is no demonstrated aneurysm of the [place] of [place]. There is no demonstrated abnormality of the visualized brain. AORTIC ARCH: There is mild atherosclerotic calcific plaque formation of the aortic arch and great vessels arising from the aortic arch, without a hemodynamically significant stenosis. There is a normal origin of the brachiocephalic, left common carotid, and left subclavian arteries. RIGHT CAROTID ARTERIES: Normal right common carotid artery (CCA). Normal right common carotid bulb. There is moderate atherosclerotic plaque formation of the origin of the right internal carotid artery with an estimated stenosis of 50-69% stenosis. Normal visualized cervical portion of the right internal carotid artery. Normal origin of the right external carotid artery (ECA). LEFT CAROTID ARTERIES: Normal left common carotid artery (CCA). Normal left common carotid bulb. There is mild atherosclerotic plaque formation of the origin of the left internal carotid artery with less than 50% cross sectional diameter stenosis. Normal visualized cervical portion of the left internal carotid artery. Normal origin of the left external carotid artery (ECA). VERTEBRAL ARTERIES: Normal bilateral vertebral arteries. CT/STROKE CTA Head AND Neck W/Con IMPRESSION: There is 50-69% stenosis at the origin of the right internal carotid artery and less than 50% stenosis at the origin of the left internal carotid artery. Decreased flow to the left posterior parietal occipital lobes. N.B. : The above Results were Read Back by Justino Zuniga MD to Anselmo Potts and understanding confirmed on 02/07/2024 10:06:13 (ET). Electronically Signed: Justino Zuniga MD at 10:07 EDT ,
[2024-02-07 09:49] LABS: Absolute Lymphocyte Count 1.28 X10^3/uL (0.83-4.51); Absolute Neutrophil Count 6.6 X10^3/uL (2.0-7.7); Basophil# 0.05 X10^3/uL; Basophil% 0.6 % (0-1); Eosinophil# 0.24 X10^3/uL; Eosinophils% 2.8 % (0-5); Hemoglobin 11.8 g/dL (12.0-15.0); Lymphocyte # 1.28 X10^3/ul (0.83-4.51); Lymphocyte % 14.7 % (19-41); Mean Corp Hgb Conc 32.8 g/dL (32-36); Mean Corpuscular Hgb 28.2 pg (27.0-32.0); Mean Corpuscular Volume 85.9 fL (81-99); Mean Platelet Vol. 8.8 fl (6.2-12.0); Monocyte# 0.55 X10^3/uL; Monocyte% 6.3 % (0-10); NRBC Flagged by Analyzer 0 % (0-5); Neutrophil # 6.55 X10^3/uL (2.7-7.7); Neutrophil % 75.3 % (47-70); Platelet Count 410 K/mm3 (150-450); RBC Distribution Width CV 14.1 % (11.6-14.6); RBC Distribution Width SD 44.7 fl (35.1-43.9); Red Blood Count 4.19 M/mm3 (4.2-5.4); White Blood Count 8.7 K/mm3 (4.4-11.0)
[2024-02-07 09:55] LABS: Bedside Glucose 135 mg/dL (74-106)
[2024-02-07 10:17] LABS: Anion Gap 8 (5-15); BUN 25 mg/dL (7-18); BUN/Creat Ratio 26.2 RATIO (10-20); Calcium,Total 9.5 mg/dL (8.5-10.1); Chloride 106 mmol/L (98-107); Creatinine, Serum 0.95 mg/dL (0.55-1.02); EST Glomerular Filtration Rate 60 mL/min (>60); Est Glom Filt Rate - Afr Amer 72 mL/min (>60); Estimated Creatinine Clearance 41.31 ml/min; Glucose 153 mg/dL (74-106); Potassium 3.6 mmol/L (3.5-5.1); Sodium Level 138 mmol/L (136-145); Troponin-I HS 18 pg/mL (3.0-54.0)
--- NOTE | 2024-02-07 10:30 | RAD_ITS ---
STUDY: X-RAY CHEST REASON FOR EXAM: Female, 83 years old. Neuro deficit, acute, stroke suspected TECHNIQUE: Single AP portable view of the chest. COMPARISON: None. FINDINGS: EKG electrodes are seen. The lungs are clear and expanded. There is no demonstrated pleural abnormality. Normal size heart. Normal mediastinum and chintan. Normal visualized pulmonary arteries. There is atherosclerotic tortuosity of the aortic arch and descending thoracic aorta. There are degenerative changes of the visualized thoracic spine. Normal visualized ribs, clavicles, and shoulders. There is no demonstrated abnormality of the visualized soft tissue structures of the upper abdomen. RAD/Chest 1 View IMPRESSION: No acute abnormality is seen. Electronically Signed: Justino Zuniga MD at 10:43 EDT ,
[2024-02-07 11:02] LABS: International Normalized Ratio 1.1; Partial Thromboplast Time 38.9 Seconds (24.1-36.2); Prothrombin Time (Protime)PT. 14.3 SECONDS (11.7-14.9)
--- NOTE | 2024-02-07 11:02 | ED.RN ---
Patient NIH assessment changes of note: remains w/ expressive and receptive aphasia, patient will nod yes or no in reference to sensory modalities and answers as expected; however, arm sensory is questionable as patient did not give yes/no, patient is able to perform gait assessment with coaching.
--- NOTE | 2024-02-07 11:17 | NURSING ---
DR CASTRO FOR DR STAUFFER
--- NOTE | 2024-02-07 11:18 | MRI_ITS ---
We are attempting to reach an attending provider to discuss findings. An addendum with communication details will be sent when the communication is complete. STUDY: MRI BRAIN WITHOUT CONTRAST REASON FOR EXAM: Female, 83 years old. stroke TECHNIQUE: Standardized multiplanar fat and water weighted pulse sequences were obtained. COMPARISON: CT of the brain February 07, 2024 FINDINGS: Mild atrophy and periventricular white matter ischemic changes without mass effect or restricted diffusion.. There is diffuse cortical gliosis of the left posterior temporal and parietal lobes with effacement of cortical sulci and demonstrating restricted diffusion consistent with acute ischemic infarction in distribution of the left middle cerebral artery. Normal bilateral basal ganglia. Normal thalami. There is no extra-axial fluid accumulation. Normal flow voids within the major intracranial circulation suggesting patency by spin echo criteria. Normal sella turcica, pituitary gland, infundibular stalk, optic chiasm and hypothalamus. Normal tectal plate and pineal gland. Normal midbrain, margaux and medulla. Normal cerebellum. Normal basal cisterns. Normal bilateral temporal bones. Normal bilateral internal auditory canals. No demonstrated orbital abnormality, within the constraints of a routine brain study. Normal visualized paranasal sinuses. Normal calvarium and skull base. Normal visualized soft tissue structures. Normal visualized upper cervical spine. MRI/Brain without Contrast IMPRESSION: Indications consistent with acute ischemic infarction in the posterior left temporal and parietal lobes. No evidence for associated hemorrhage. Electronically Signed: Humberto Pennington MD at 16:50 EDT ,
--- NOTE | 2024-02-07 11:22 | NURSING ---
DR CASTRO FOR DR STAUFFER
--- NOTE | 2024-02-07 11:25 | CDU_ITS ---
Reason For Study: carotid stenosis on CTA Rt. Velocities/BP Lt. Velocities/BP Prox CCA 74.0/8.8 cm/sec. Prox CCA 123.2/12.6 cm/sec. Mid CCA 89.1/17.3 cm/sec. Mid CCA 117.0/12.6 cm/sec. Dist CCA 100.3/21.2 cm/sec. Dist CCA 108.4/11.4 cm/sec. Prox ICA 262.8/30.1 cm/sec. Prox ICA 99.2/13.3 cm/sec. Mid ICA 161.5/34.5 cm/sec. Mid ICA 98.1/14.3 cm/sec. Dist ICA 155.8/22.5 cm/sec. Dist ICA 102.8/18.8 cm/sec. Rt. ICA/CCA = 2.9. Lt. ICA/CCA = .9. Prox ECA 220.2/7.2 cm/sec. Prox ECA 113.3/5.3 cm/sec. Rt. Vert. 57.5/12.4 cm/sec. Lt. Vert. 66.3/11.5 cm/sec. Right Extracranial There is intimal thickening but no significant atherosclerotic plaque noted in the right common carotid artery. There is heterogeneous, irregular atherosclerotic plaque noted in the right internal carotid artery. There is homogeneous, smooth atherosclerotic plaque noted in the right external carotid artery. Antegrade flow is noted in the right vertebral artery. Left Extracranial There is intimal thickening but no significant atherosclerotic plaque noted in the left common carotid artery. There is intimal thickening but no significant atherosclerotic plaque noted in the left internal carotid artery. There is heterogeneous, irregular atherosclerotic plaque noted in the left external carotid artery. Antegrade flow is noted in the left vertebral artery. Procedure Carotid Duplex [id number]. This is a Carotid Duplex examination using B-mode, color flow and specral Doppler. The exam was diagnostic. Exam performed portable in ICU/CCU. VL/Carotid Duplex Ultrasound Interpretation Summary Severe (>70%) stenosis right extracranial internal carotid. Normal left extracranial internal carotid. Patent and antegrade vertebrals bilaterally. Ordering Physician: Jayy Vera Performed By: Alfredo Pinto RVT
--- NOTE | 2024-02-07 11:26 | HP.PCM.HOS_ITS ---
HPI - General General Date of Admission: 02/07/24 HPI Narrative POONAM GOULD, is a 83 F who presents to the hospital with signs and symptoms concerning for stroke. Her last known well was last night at 11 PM when she went to bed with her . This morning she was acting confused and was not doing her normal tasks appropriately. He presented to the PCPs office who recommended that he bring her to the emergency room. In the ER CT of the brain demonstrated a left parietal stroke and the head and neck CTA demonstrated a right ICA stenosis of 50 to 69%. MRI is currently pending. She does have an NIH of approximately 6 in the ER. [facility] Medical History (Updated 02/07/24 @ 15:[address] Jayy Vera MD) Arthritis DDD (degenerative disc disease), lumbar Environmental allergies Glaucoma Hypertension Migraines TMJ (temporomandibular joint syndrome) Home Medications amlodipine 5 mg-valsartan 160 mg-hydrochlorothiazide 12.5 mg tablet 1 tab PO QDAY 12/20/17 [History Last Taken Unknown] lactobacillus combination no.9 4 billion cell capsule (Adult 50 Plus Probiotic) 4,000 mmu cells PO QDAY 12/20/17 [History Last Taken Unknown] hydrochlorothiazide 12.5 mg capsule 12.5 mg PO DAILY 02/07/24 [History Last Taken Unknown] losartan 50 mg tablet 50 mg PO DAILY 02/07/24 [History Last Taken Unknown] meloxicam 7.5 mg tablet 7.5 mg PO DAILY 02/07/24 [History Last Taken Unknown] sertraline 50 mg tablet 50 mg PO DAILY 02/07/24 [History Last Taken Unknown] Allergy/AdvReac Type Severity Reaction Status Date / Time No Known Allergies Allergy Unverified 11/07/23 10:19 Family History (Updated 02/07/24 @ 17:[address] Jayy Vera MD) Other CVA (cerebral vascular accident) Surgical History (Updated 02/07/24 @ 17:[address] Jayy Vera MD) S/P appendectomy Social History Smoking Status: Never smoker alcohol intake: never substance use type: does not use what type of physical activity do you participate in: walking and aerobics frequency: 3-4 times per week ROS Constitutional Constitutional: Denies chills, fatigue, fever(s) or malaise Eyes Eyes: Denies blurry vision ENT HEENT: Denies headache(s) or nasal discharge Cardiovascular Cardiovascular: Denies chest pain, dyspnea on exertion or syncope Respiratory/Chest Respiratory/Chest: Denies cough, shortness of breath at rest or shortness of breath with exertion Gastrointestinal Gastrointestinal: Denies constipation, diarrhea, nausea or vomiting Genitourinary Genitourinary: Denies dysuria Neurologic Neurologic: Reports abnormal speech; Denies focal weakness, numbness or tremor(s) Psychiatric Psychiatric: Denies anxiety or depression Vital Signs Vital Signs Vital Signs: 02/07/24 09:34 02/07/24 09:36 02/07/24 09:44 Temperature 97.8 F 97.8 F Temperature Source Temporal Temporal Pulse Rate 99 99 Respiratory Rate 16 18 Blood Pressure 106/92 H 106/92 H Blood Pressure Mean 96 96 Pulse Ox 100 99 99 Oxygen Delivery Method Room Air Room Air Room Air 02/07/24 09:51 02/07/24 10:20 02/07/24 10:20 Temperature Temperature Source Pulse Rate 95 95 95 Respiratory Rate 15 14 16 Blood Pressure 148/84 H 121/87 H 121/97 H Blood Pressure Mean 105 98 105 Pulse Ox 99 97 97 Oxygen Delivery Method Room Air Room Air Room Air 02/07/24 10:51 Temperature Temperature Source Pulse Rate 101 H Respiratory Rate 19 H Blood Pressure 120/101 H Blood Pressure Mean 107 Pulse Ox 95 Oxygen Delivery Method Room Air Weight Weight: 144 lb 13.499 oz Body Mass Index (BMI) 26.4 Physical Exam Narrative General: Alert, unable to evaluate orientation, Cooperative, No apparent distress HEENT: Atraumatic, PERRLA, EOMI, Normocephalic Oral: Moist Mucosa Neck: Supple, No JVD Lungs: Diminished, Normal air movement, No rhonchi, No wheeze, No rales Cardiovascular: Regular rate, Regular Rhythm, Normal S1, Normal S2, No murmurs Abdomen: Soft, Non Tender, Non-Distended, No Hepato-splenomegaly Extremities: No edema, Capillary Refill Less than 3 Seconds Skin: No rashes, No breakdown Musculoskeletal: No Tenderness to Palpation of Joints or Extremities Neurological: Aphasia, Motor Exam 5/5 strength throughout, Sensory exam intact to light touch and pain, NIH of 5-6, limited by the fact that she has difficulty following commands Psych/Mental Status: Normal Affect, Appropriate Results Lab / Micro Data 02/07/24 09:35 02/07/24 09:35 Labs: Laboratory Results - last 24 hr 02/07/24 09:35: WBC 8.7, RBC 4.19 L, Hgb 11.8 L, Hct 36.0 L, MCV 85.9, MCH 28.2, MCHC 32.8, RDW Std Deviation 44.7 H, RDW Coeff of Edi 14.1, Plt Count 410, MPV 8.8, Immature Gran % (Auto) 0.300, Neut % (Auto) 75.3 H, Lymph % (Auto) 14.7 L, [place] % (Auto) 6.3, Eos % (Auto) 2.8, Baso % (Auto) 0.6, Absolute Neuts (auto) 6.6, Absolute Lymphs (auto) 1.28, Nucleated RBC % 0, PT 14.3, INR 1.1, APTT 38.9 H, Sodium 138, Potassium 3.6, Chloride 106, Carbon Dioxide 24.0, Anion Gap 8, BUN 25 H, Creatinine 0.95, Estim Creat Clear Calc 41.31, Est GFR (MDRD) Af Amer 72, Est GFR (MDRD) Non-Af 60, BUN/Creatinine Ratio 26.2 H, Glucose 153 H, Calcium 9.5, Troponin I High Sens 18 02/07/24 09:38: POC Glucose 135 H Imaging Radiology Impression Brain CT 02/07/24 09:38 IMPRESSION: Findings suggestive of acute ischemic changes involving the posterior left temporal parietal occipital lobes in the distribution of the left posterior cerebral artery. N.B. : The above Results were Read Back by Justino Zuniga MD to Anselmo Potts and understanding confirmed on 02/07/2024 10:00:00 (ET). Electronically Signed: Justino Zuniga MD at 10:01 EDT , ADDENDUM: 02/07/24 1008 IMPRESSION: Findings suggestive of acute ischemic changes involving the posterior left temporal parietal occipital lobes in the distribution of the left posterior cerebral artery. N.B. : The above Results were Read Back by Justino Zuniga MD to Anselmo Potts and understanding confirmed on 02/07/2024 10:00:00 (ET). Electronically Signed: Justino Zuniga MD at 10:01 EDT , Head/Neck CTA 02/07/24 09:43 IMPRESSION: There is 50-69% stenosis at the origin of the right internal carotid artery and less than 50% stenosis at the origin of the left internal carotid artery. Decreased flow to the left posterior parietal occipital lobes. N.B. : The above Results were Read Back by Justino Zuniga MD to Anselmo Potts and understanding confirmed on 02/07/2024 10:06:13 (ET). Electronically Signed: Justino Zuniga MD at 10:07 EDT , ADDENDUM: 02/07/24 1014 IMPRESSION: There is 50-69% stenosis at the origin of the right internal carotid artery and less than 50% stenosis at the origin of the left internal carotid artery. Decreased flow to the left posterior parietal occipital lobes. N.B. : The above Results were Read Back by Justino Zuniga MD to Anselmo Potts and understanding confirmed on 02/07/2024 10:06:13 (ET). Electronically Signed: Justino Zuniga MD at 10:07 EDT , Chest X-Ray 02/07/24 10:30 IMPRESSION: No acute abnormality is seen. Electronically Signed: Justino Zuniga MD at 10:43 EDT , Assessment & Plan Assessment/Plan (1) CVA (cerebral vascular accident): PLAN: Plan 1. Acute CVA ? MRI is pending, will consult neurology ? Will continue with the stroke protocol ? Will allow for permissive hypertension ? PT/OT as well as speech therapy given her aphasia ? CTA of the head and neck demonstrated a 50 to 69% stenosis in the right internal carotid artery therefore we will proceed with a carotid duplex 2. Essential HTN ? Will hold her blood pressure medication secondary to permissive hypertension ? Can restart in 24 to 48 hours ? In the meantime she will have as needed medications available for the stroke protocol 3. Anxiety/depression ? Stable ? Continue with Zoloft DVT: SCDs 75 minutes was spent on direct patient care, including documentation as well as chart review and collaboration with colleagues Charges/Coding Visit Charges Inpatient E&M: 42578 Init Hosp L3
--- NOTE | 2024-02-07 11:43 | NURSING ---
PCU [facility] STROKE
[2024-02-07] MEDS: Aspirin 81 MG TAB.CHEW 324 MG PO (12:15)
[2024-02-07] MEDS: LORazepam 2 MG/ML Syringe 0.5 MG IV (15:06)
--- NOTE | 2024-02-07 16:43 | CHAPLAIN ---
Type of Pastoral Visit ___ Initial Visit ___ Follow-up Visit ___ On-call Visit ___ General Patient Visit ___ Spiritual Assessment ___ Family Conference ___ Bereavement _x__ Rapid Response ___ Code Blue ___ Other (describe below) Pastoral Care Referral From ___ Patient ___ Family ___ Nurse ___ Physician ___ Contour Grinder ___ Rn First Assist _x__ Other (describe below) Sacrament/Intervention _x__ Active listening ___ Anointing ___ Alevism ___ Bereavement ___ Communion ___ Mariaelena exploration ___ ___ Life review _x__ Prayer ___ Reconciliation ___ Sacrament of Sick _x__ Supportive presence ___ Wedding ___ Other (describe below) Pastoral Comments patient has been evaluated for a stroke; pt will be admitted to ICU; spouse is with patient and he admits to being anxious and needs this house director to follow up with her please; both welcome a prayer at this time; pt is also anxious and has concerns for her ; affirmation of good care and support for them both
[2024-02-07] MEDS: Atorvastatin Calcium 40 MG Tablet PO (21:55)
[2024-02-08 03:30] VITALS: BP 117/72; PULSE 98; RESP 18; TEMP 36.6; O2SAT 100
[2024-02-08 06:00] VITALS: BP 107/60; PULSE 85; RESP 15; O2SAT 98
[2024-02-08 07:00] VITALS: O2SAT 98
[2024-02-08 07:30] VITALS: BP 92/82; PULSE 90; RESP 16; TEMP 37; O2SAT 94
[2024-02-08 08:28] LABS: Absolute Lymphocyte Count 1.64 X10^3/uL (0.83-4.51); Absolute Neutrophil Count 5.7 X10^3/uL (2.0-7.7); Basophil# 0.04 X10^3/uL; Basophil% 0.5 % (0-1); Eosinophil# 0.15 X10^3/uL; Eosinophils% 1.8 % (0-5); Hematocrit 34.4 % (37-47); Hemoglobin 11.2 g/dL (12.0-15.0); Lymphocyte # 1.64 X10^3/ul (0.83-4.51); Lymphocyte % 20.1 % (19-41); Mean Corp Hgb Conc 32.6 g/dL (32-36); Mean Corpuscular Hgb 27.8 pg (27.0-32.0); Mean Corpuscular Volume 85.4 fL (81-99); Mean Platelet Vol. 8.9 fl (6.2-12.0); Monocyte# 0.56 X10^3/uL; Monocyte% 6.9 % (0-10); NRBC Flagged by Analyzer 0 % (0-5); Neutrophil # 5.73 X10^3/uL (2.7-7.7); Neutrophil % 70.2 % (47-70); Platelet Count 411 K/mm3 (150-450); RBC Distribution Width CV 13.9 % (11.6-14.6); RBC Distribution Width SD 43.5 fl (35.1-43.9); Red Blood Count 4.03 M/mm3 (4.2-5.4); White Blood Count 8.2 K/mm3 (4.4-11.0)
[2024-02-08 09:38] VITALS: BMI 26.7
[2024-02-08 09:47] LABS: Anion Gap 7 (5-15); BUN 16 mg/dL (7-18); BUN/Creat Ratio 21.1 RATIO (10-20); Calcium,Total 8.9 mg/dL (8.5-10.1); Chloride 107 mmol/L (98-107); Cholesterol 162 mg/dL (200); Creatinine, Serum 0.76 mg/dL (0.55-1.02); EST Glomerular Filtration Rate 78 mL/min (>60); Est Glom Filt Rate - Afr Amer 94 mL/min (>60); Estimated Creatinine Clearance 47.95 ml/min; Glucose 106 mg/dL (74-106); High Density Lipoprotein 49 mg/dL; Potassium 3.8 mmol/L (3.5-5.1); Sodium Level 137 mmol/L (136-145); Triglycerides 86 mg/dL; Very Low Density Lipoprotein 17 mg/dL (5-40)
[2024-02-08] MEDS: Sertraline 50 MG Tablet PO (10:02)
[2024-02-08] MEDS: Aspirin 81 MG TAB.CHEW PO (10:02)
[2024-02-08 10:30] VITALS: BP 154/84; PULSE 94; RESP 16; TEMP 37.1; O2SAT 99
--- NOTE | 2024-02-08 10:30 | CASEMGMT ---
Addendum entered by Israel Zamarripa 02/08/24 14:40: [facility] states that they can accept the pt with SOC tomorrow 02/09/24. Original Note: RN MARVIN Assessment Face to Face with patient for initial transition planning/care coordination assessment. RN MARVIN introduced self and role at [facility], pt voices understanding. Pt is A&Ox3 and is resting comfortably in bed and is calm. Pt at bedside. Care providers, pharmacy, and demographics verified. Admitting dx: CVA LACE Strata: 1 PCP: Clyde Downing Specialists: Denies Preferred Pharmacy: [facility] Insurance: AARP MCR ADV Prescription Benefit: Yes LNOK: Xavier Veloz (H) Living Arrangements: Pt lives with her in a single story home with a BM with 2 steps to enter with handrails throughout ADLs/IADLs: Ind at baseline Transportation: Self, DME: Cane, FWW, walk-in shower with GB and chair, raised toilet seat, BP Cuff HHC/SNF: Denies history. Pt states History at [facility] Pt?s goal: Home with HHC Plan: PT/OT/ ST evals are pending. At this time, the pt states that she would be interested in HHC. Dr. Vera updated and agrees with [facility] for the pt. The pt and pt deny wanting to see a list of local in-network HHC agencies and state that [facility] TC to [facility] at this time at [facility] HH and referral made for SN, PT, OT, and ST. Awaiting return response. Pt RN updated. CM to follow for safe DC from [facility]. Sundar Zamarripa RN, CM
--- NOTE | 2024-02-08 11:12 | CON.PCM.NE_ITS ---
Assessment and Plan: Stroke Assessment/Plan POONAM GOULD, is a 83 year old RH female with history of HTN and migraines who was LKN 02/07/2024 at 11p prior to bed. Overnight she fell but shouted to her that she was okay. On 02/07 morning, noticed that patient was confused, could not open the car door and was having trouble speaking. Patient brought to [place] ER. CT nic showed a left inferior division MCA infarct (read as [employer] on report- but this is incorrect). 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 NIHSS 6. She was admitted. 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 LDL 96. She is on Asa, lipitor 40. reports she is better this morning, but still confused. Neurological examination shows aphasia and partial visual field deficit. NIHSS 6. ASSESSMENT/PLAN: Acute left MCA ischemic stroke 1) Recommend completing stroke work-up including TTE and Event monitor on discharge. 2) Recommend PT/OT consults and speech therapy for aphasia 3) Continue daily anti-platelet medication (Asa) 4) Continue vascular risk factor modification. On lipitor 40. Messaged primary team with my recommendations. HPI Consult Data Date of Consult: 02/08/24 HPI Narrative HPI Narrative: POONAM GOULD, is a 83 year old RH female with history of HTN and migraines who was LKN 02/07/2024 at 11p prior to bed. Overnight she fell but shouted to her that she was okay. On 02/07 morning, noticed that patient was confused, could not open the car door and was having trouble speaking. Patient brought to [place] ER. CT nic showed a left inferior division MCA infarct (read as [employer] on report- but this is incorrect). 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 NIHSS 6. She was admitted. 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 She is on Asa, lipitor 40. reports she is better this morning, but still confused. [facility] Medical History (Updated 02/07/24 @ 15:[address] Jayy Vera MD) Arthritis DDD (degenerative disc disease), lumbar Environmental allergies Glaucoma Hypertension Migraines TMJ (temporomandibular joint syndrome) Home Medications amlodipine 5 mg-valsartan 160 mg-hydrochlorothiazide 12.5 mg tablet 1 tab PO QDAY 12/20/17 [History Last Taken Unknown] lactobacillus combination no.9 4 billion cell capsule (Adult 50 Plus Probiotic) 4,000 mmu cells PO QDAY 12/20/17 [History Last Taken Unknown] hydrochlorothiazide 12.5 mg capsule 12.5 mg PO DAILY 02/07/24 [History Last Taken Unknown] losartan 50 mg tablet 50 mg PO DAILY 02/07/24 [History Last Taken Unknown] meloxicam 7.5 mg tablet 7.5 mg PO DAILY 02/07/24 [History Last Taken Unknown] sertraline 50 mg tablet 50 mg PO DAILY 02/07/24 [History Last Taken Unknown] Allergy/AdvReac Type Severity Reaction Status Date / Time No Known Allergies Allergy Unverified 11/07/23 10:19 Family History (Updated 02/07/24 @ 17:[address] Jayy Vera MD) Other CVA (cerebral vascular accident) Surgical History (Updated 02/07/24 @ 17:[address] Jayy Vera MD) S/P appendectomy Social History Smoking Status: Unknown if ever smoked alcohol intake: never substance use type: does not use what type of physical activity do you participate in: walking and aerobics frequency: 3-4 times per week Vital Signs Vital Signs Vital Signs: 02/07/24 11:30 02/07/24 12:00 02/07/24 12:00 Temperature Temperature Source Pulse Rate 101 H 102 H 99 Respiratory Rate 25 H 21 H 16 Blood Pressure 108/74 117/70 126/84 H Blood Pressure Mean 85 85 98 Blood Pressure Source Blood Pressure Position Blood Pressure Location Pulse Ox 97 94 97 Oxygen Delivery Method Room Air Room Air Room Air 02/07/24 12:30 02/07/24 13:00 02/07/24 13:27 Temperature 98.0 F Temperature Source Pulse Rate 92 84 82 Respiratory Rate 12 17 17 Blood Pressure 129/1 H 128/75 H 126/81 H Blood Pressure Mean 43 92 96 Blood Pressure Source Blood Pressure Position Blood Pressure Location Pulse Ox 97 94 94 Oxygen Delivery Method Room Air Room Air 02/07/24 14:00 02/07/24 15:23 02/07/24 15:38 Temperature 97.2 F L Temperature Source Temporal Pulse Rate 85 103 H 98 Respiratory Rate 17 18 18 Blood Pressure 105/77 133/92 H 166/75 H Blood Pressure Mean 86 105 105 Blood Pressure Source Monitor Monitor Monitor Blood Pressure Position Semi-Fowlers Supine Supine Blood Pressure Location Left Arm Right Arm Right Arm Pulse Ox 100 99 98 Oxygen Delivery Method Room Air Room Air Room Air 02/07/24 15:54 02/07/24 15:41 02/07/24 17:23 Temperature 97.2 F L Temperature Source Temporal Pulse Rate 98 88 Respiratory Rate 18 15 Blood Pressure 136/76 H 122/52 H Blood Pressure Mean 96 75 Blood Pressure Source Monitor Monitor Blood Pressure Position Supine Semi-Fowlers Blood Pressure Location Right Arm Left Arm Pulse Ox 98 98 100 Oxygen Delivery Method Room Air Room Air Room Air 02/07/24 22:00 02/08/24 03:30 02/08/24 06:00 Temperature 99.5 F H 97.9 F Temperature Source Temporal Temporal Pulse Rate 88 98 85 Respiratory Rate 20 H 18 15 Blood Pressure 113/70 117/72 107/60 Blood Pressure Mean 84 87 75 Blood Pressure Source Monitor Monitor Monitor Blood Pressure Position Semi-Fowlers Semi-Fowlers Semi-Fowlers Blood Pressure Location Left Arm Left Arm Left Arm Pulse Ox 99 100 98 Oxygen Delivery Method Room Air Room Air Room Air 02/08/24 07:30 Temperature 98.6 F Temperature Source Temporal Pulse Rate 90 Respiratory Rate 16 Blood Pressure 92/82 H Blood Pressure Mean 85 Blood Pressure Source Monitor Blood Pressure Position Semi-Fowlers Blood Pressure Location Right Arm Pulse Ox 94 Oxygen Delivery Method Room Air Weight Weight: 65.969 kg Body Mass Index (BMI) 26.7 NIHSS NIHSS Nursing Documentation NIHSS Nursing Documentation: NIHSS: Ischemic Stroke/TIA Start: 02/07/24 13:25 Text: For PCU Patients: NIH and Neuro Check every 4 Status: Active hours, PRN and with change in RN caregiver. Freq: [id number] Protocol: Activity Type Activity Date Activity User E-sign Co-sign Detail Recorded Client Recorded Date Recorded By Document 02/08/24 07:30 Desktop 02/08/24 09:44 02/08/24 07:30 NIH Stroke Scale [NIHSS] A score of 0 is normal or asymptomatic . Total possible score is 42. Inpatient: RN or Physician to activate a stroke alert for onset of new stroke symptoms or with NIHSS increase >/= 3 points. Following change in neurological status, NIHSS will be performed per physician order or more frequently PRN. -1a. Level of Consciousness Alert; keenly responsive -1b. LOC Questions Answers one question correctly. -1c. LOC Commands Performs both tasks correctly . -2. Best Gaze Normal -3. Visual No visual loss -4. Facial Palsy Normal symmetrical movements -5a. Left Arm No drift; arm holds 90 (or 45 ) degrees for full 10 seconds -5b. Right Arm No drift; arm holds 90 (or 45 ) degrees for full 10 seconds -6a. Left Leg No drift; leg holds 30-degree position for full 5 seconds -6b. Right Leg No drift; leg holds 30-degree position for full 5 seconds -7. Limb Ataxia Absent -8. Sensory Normal; no sensory loss -9. Best Language Severe aphasia; -10. Dysarthria Normal -11. Extinction and Inattention No abnormality -Total 3 Query Text:A score of 0 is normal or asymptomatic. Total possible score is 42 . ED: Notify Physician for NIHSS increase by > / = 3 points. Inpatient: RN or Physician to activate a stroke alert for NIHSS increase of > / = 3 points. NIHSS 1a. Level of Consciousness: Alert; keenly responsive 1b. LOC Questions: Answers neither question correctly. 1c. LOC Commands: Performs one task correctly. 2. Best Gaze: Normal 3. Visual: Partial hemianopia 4. Facial Palsy: Normal symmetrical movements 5a. Left Arm: No drift; arm holds 90 (or 45) degrees for full 10 seconds 5b. Right Arm: No drift; arm holds 90 (or 45) degrees for full 10 seconds 6a. Left Leg: No drift; leg holds 30-degree position for full 5 seconds 6b. Right Leg: No drift; leg holds 30-degree position for full 5 seconds 7. Limb Ataxia: Absent 8. Sensory: Normal; no sensory loss 9. Best Language: Severe aphasia; 10. Dysarthria: Normal 11. Extinction and Inattention: No abnormality Total: 6 Physical Exam Neuro Neuro Narrative: Neurological examination: General: The patient appears nutritionally appropriate, well-groomed, and appears comfortable in no acute distress. Mental Status:? The patient?s mental status was alert.? Language testing showed severe aphasia, unable to name objects on stroke cards. Unable to follow simple commands.? Cranial nerves:? Visual cano suspect partial right field cut. Extra-ocular motion was intact. Face motion symmetric. There was no dysarthria. Motor: Normal strength and tone in all four extremities. No pronator drift. Sensation: Intact light touch bilaterally.? Coordination:? Bilateral finger to nose was normal.? There was no dysmetria. Gait:? deferred Lab / Micro Data 02/08/24 07:55 02/08/24 07:55 Labs: Laboratory Results - last 24 hr 02/08/24 07:55: WBC 8.2, RBC 4.03 L, Hgb 11.2 L, Hct 34.4 L, MCV 85.4, MCH 27.8, MCHC 32.6, RDW Std Deviation 43.5, RDW Coeff of Edi 13.9, Plt Count 411, MPV 8.9, Immature Gran % (Auto) 0.500, Neut % (Auto) 70.2 H, Lymph % (Auto) 20.1, [place] % (Auto) 6.9, Eos % (Auto) 1.8, Baso % (Auto) 0.5, Absolute Neuts (auto) 5.7, Absolute Lymphs (auto) 1.64, Nucleated RBC % 0, Sodium 137, Potassium 3.8, Chloride 107, Carbon Dioxide 23.0, Anion Gap 7, BUN 16, Creatinine 0.76, Estim Creat Clear Calc 47.95, Est GFR (MDRD) Af Amer 94, Est GFR (MDRD) Non-Af 78, BUN/Creatinine Ratio 21.1 H, Glucose 106, Calcium 8.9, Triglycerides 86, Cholesterol 162, LDL Cholesterol 96, VLDL Cholesterol 17, HDL Cholesterol 49 Imaging Radiology Impression Brain MRI 02/07/24 11:18 IMPRESSION: Indications consistent with acute ischemic infarction in the posterior left temporal and parietal lobes. No evidence for associated hemorrhage. Electronically Signed: Humberto Pennington MD at 16:50 EDT Reading Location ID and State: [facility] / [place] Tel , Service support , ADDENDUM: 02/07/24 7990 IMPRESSION: Indications consistent with acute ischemic infarction in the posterior left temporal and parietal lobes. No evidence for associated hemorrhage. N.B. : The above Results were Read Back by Humberto Pennington MD to Domonique Quach RN, and understanding confirmed on 02/07/2024 17:30:49 (ET). Electronically Signed: Humberto Pennington MD at 16:50 EDT Reading Location ID and State: [address] [place] [address] Tel , Service support , Carotid Duplex 02/07/24 11:25 Interpretation Summary Severe (>70%) stenosis right extracranial internal carotid. Normal left extracranial internal carotid. Patent and antegrade vertebrals bilaterally. Ordering Physician: Jayy Vera Performed By: Alfredo Pinto, RVT Active Medications Active Medications Active Medications: Current Medications Generic Name Dose Route Start Last Admin Trade Name Freq PRN Reason Stop Dose Admin Aspirin 81 mg 02/08/24 08:00 02/08/24 10:02 Aspirin 81 Mg Tab.Chew PO 81 mg BREAKFAST GEORGIE Administration Atorvastatin Calcium 40 mg 02/07/24 22:00 02/07/24 21:55 Atorvastatin Calcium 40 Mg Tablet PO 40 mg QHS GEORGIE Administration Sertraline HCl 50 mg 02/08/24 10:00 02/08/24 10:02 Sertraline 50 Mg Tablet PO 50 mg DAILY GEORGIE Administration Sodium Chloride 10 - 40 ml 02/07/24 13:39 0.9% Saline Lock 10 Ml Syringe IV UD PRN SALINE FLUSH
--- NOTE | 2024-02-08 11:25 | ECHOD_ITS ---
Reason For Study: TIA/CVA Procedure This was a 2D Doppler, Color Flow transthoracic echocardiogram. Exam performed portable in ICU/CCU. Left Ventricle Normal LV size. Left ventricular systolic function is normal. The left ventricular ejection fraction is 70 %. No regional wall motion abnormalities noted. Right Ventricle Normal RV size. Normal systolic function. Atria Normal left atrium. Normal right atrium. Bubble contrast study negative for right to left interatrial shunt. Mitral Valve Normal mitral valve. Tricuspid Valve Normal tricuspid valve. Mild (1+) tricuspid valve insufficiency. Pulmonary artery systolic pressure is 42 mmHg. Aortic Valve Trisinus/trileaflet aortic valve. Pulmonic Valve Normal pulmonic valve. Great Vessels Normal aortic root. The pulmonary artery is normal size. Inferior vena cava collapse with sniff. Pericardium/Pleural No pericardial effusion. Medication Performed a rapid injection of agitated mix of 9 cc saline and 1cc air to assess for atrial septal defect. MMode/2D Measurements & Calculations LVIDd: 3.6 cm IVSd: 0.87 cm Ao root diam: 3.5 cm LVIDs: 2.0 cm LVPWd: 0.85 cm RVDd: 2.7 cm FS: 43.9 % LAV(MOD-bp): 32.4 ml LVAd ap4: 14.6 cm2 SV(MOD-sp4): 20.4 ml LAV(MOD-bp) Indexed: 19.6 ml/m2 LVLd ap4: 6.4 cm LAV(MOD-sp2): 25.0 ml EDV(MOD-sp4): 27.2 ml LAV(MOD-sp4): 35.3 ml EDV(sp4-el): 28.3 ml LVAs ap4: 6.4 cm2 LVLs ap4: 5.0 cm ESV(MOD-sp4): 6.9 ml ESV(sp4-el): 7.1 ml EF(MOD-sp4): 74.8 % EF(sp4-el): 74.8 % SV(sp4-el): 21.2 ml LA A4 area: 15.5 cm2 LA dimension(2D): 3.1 cm RA A4 area: 10.2 cm2 TAPSE: 2.0 cm Time Measurements MV dec time: 0.24 sec Doppler Measurements & Calculations MV E max anish: 104.3 cm/sec Lat Peak E' Anish: 9.1 cm/sec Med Peak E' Anish: 7.4 cm/sec MV A max anish: 97.3 cm/sec E/E' lat: 11.5 E/E' med: 14.1 MV E/A: 1.1 MV dec slope: 443.2 cm/sec2 Ao V2 max: 155.5 cm/sec LV V1 max: 120.8 cm/sec Ao max P.7 mmHg LV V1 max P.8 mmHg Ao V2 mean: 115.8 cm/sec Ao mean P.7 mmHg Ao V2 VTI: 34.4 cm PA V2 max: 109.5 cm/sec TR max anish: 306.7 cm/sec TR max P.6 mmHg ECHO/Echo Complete Interpretation Summary Normal LV size. Left ventricular systolic function is normal. The left ventricular ejection fraction is 70 %. Mild (1+) tricuspid valve insufficiency. Pulmonary artery systolic pressure is 42 mmHg. Bubble contrast study negative for right to left interatrial shunt. Ordering Physician: Jayy Vera Referring Physician: Clyde Downing Performed By: Ree Magaña, SABINO, RVT
--- NOTE | 2024-02-08 14:13 | PCM.DC ---
Discharge Instructions Diet Discharge Diet: Low fat / Low cholesterol Activity Discharge Activity: Return to Normal Activity Dressing / Incision Call your doctor if you observe: Fever of 101 or Higher, Shortness of breath, Dizziness, Fainting spells, Swelling in the ankles, Chest pain and Increased palpitations (irregular heartbeat) Follow Up Care Test Results: Test results from this visit will be discussed in further detail at your follow-up appointment, if applicable. Discharge Plan Admission Admit Date/Time: 02/07/24 11:20 Attending Provider: Jayy Vera Primary Care Provider: Clyde Downing Consulting Providers: Marquez Greenberg; Charlotte Pennington; Sharmila Rasmussen; Thania Romero; Adela Flynn; Wallace Esteban; Yamilet Sandhu; Connor James; Ryan Leone; Amy Oconnor; Alejandro Moreno; Emerita Hernández; Jose Zelaya; José Bro; Dimitri Thomas; Keyon Browne; Hong Child; Lien Corona; Rossy Dong Instructions Patient Instructions: Discharge Instructions for Stroke Discharge Orders/Prescriptions Prescriptions: New aspirin 81 mg Tablet,Chewable 81 mg PO BREAKFAST 30 Days Qty: 30 0RF atorvastatin 40 mg Tablet 40 mg PO QHS 30 Days Qty: 30 0RF Continued losartan 50 mg tablet 50 mg PO DAILY meloxicam 7.5 mg tablet 7.5 mg PO DAILY hydrochlorothiazide 12.5 mg capsule 12.5 mg PO DAILY sertraline 50 mg tablet 50 mg PO DAILY Discontinued rwdrkfcnfl-znyrvqfsx-zwinbrbci 5-160-12.5 mg tablet 1 tab PO QDAY lactobacillus combination no.9 [Adult 50 Plus Probiotic] 4 billion cell capsule 4,000 mmu cells PO QDAY Other Ambulatory Orders: 30 Day Event Recorder Preventi (Routine) Timeframe: 1 Day Facility: [facility] - Location: Cardiovascular Services Ordered By: Dr. Jayy Vera Referrals / Follow Up: Clyde Downing MD [Primary Care Provider] - Within 1 Week Ricardo Orr MD [Med Staff - Active Staff] - Within 2 Weeks (Right >70% ICA occlusion) Disposition Disposition (needs filled in before D/C Order can be placed): Home, Self Care
[2024-02-08 14:30] VITALS: BP 148/75; PULSE 96; RESP 18; TEMP 36.8; O2SAT 98
--- NOTE | 2024-02-08 15:55 | CASEMGMT ---
Social Work- SW met with pt to administer PHQ9. PT scored 1. Pt was open-minded in regards to the assessment and allowed SW to leave a list of counselors if needed in the future when d/c. Pt stated that she competes in [employer] events with her dogs, walks, does service events with her peers, and has several hobbies. Pt reports that spouse is a good source of support despite his own health issues. Pt is looking forward to working on her speech and is goal-oriented. Pt was pleasant and cooperative in demeanor. VARUN Smith
[2024-02-08 16:28] VITALS: BMI 26.7
--- NOTE | 2024-02-08 18:24 | DS.PCM_ITS ---
Providers Date of Admission: 02/07/24 Primary Care Physician: Dr. Clyde Downing MD Consultations 02/07/24 13:25 Consult: Tele-Neurology Routine Consulting Provider: [facility] Reason for Consult: Acute Ischemic Stroke/TIA EMERGENT Consult: No MD Notified: Yes Date Notified: 02/07/24 Time Notified: 11:21 Method of Notification: ED Physician Initiated Nursing Unit Staff Notify [facility] of Tele-Neurology Consult: Yes Reason For Visit: CVA Diagnosis Discharge Diagnosis (1) CVA (cerebral vascular accident): Status: Acute Code(s): I63.9 - Cerebral infarction, unspecified Medications at Discharge Home Medications hydrochlorothiazide 12.5 mg capsule 12.5 mg PO DAILY 02/07/24 losartan 50 mg tablet 50 mg PO DAILY 02/07/24 meloxicam 7.5 mg tablet 7.5 mg PO DAILY 02/07/24 sertraline 50 mg tablet 50 mg PO DAILY 02/07/24 aspirin 81 mg chewable tablet 81 mg PO BREAKFAST 30 days #30 tabs 02/08/24 atorvastatin 40 mg tablet 40 mg PO QHS 30 days #30 tabs 02/08/24 Hospital Course Operations None Procedures 2-D Echocardiogram Summary of Care Provided Minutes Spent on Discharge: 40 Hospital Course: Per HPI: POONAM GOULD, is a 83 F who presents to the hospital with signs and symptoms concerning for stroke. Her last known well was last night at 11 PM when she went to bed with her . This morning she was acting confused and was not doing her normal tasks appropriately. He presented to the PCPs office who recommended that he bring her to the emergency room. In the ER CT of the brain demonstrated a left parietal stroke and the head and neck CTA demonstrated a right ICA stenosis of 50 to 69%. MRI is currently pending. She does have an NIH of approximately 6 in the ER. Hospital Course: 1. 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 She was outside the thrombolytic window. CVA was actually visible on the CT scan and confirmed with the MRI of the brain. She also had a CT of the head and neck which did demonstrate a 50 to 69% stenosis of the right internal carotid artery so carotid Doppler was obtained which demonstrated this was greater than 70%. She was started on statin as well as an aspirin. She has not had significant improvem ent in her symptoms but she has not had any worsening either. She does have a little bit of extinction. She was evaluated by speech therapy and she does not have any swallowing defects but will need speech therapy as an outpatient. She does not have any physical or occupational therapy needs at this time. Appreciate neurology's assistance. Will discharge her with an event monitor. She did have an echo on the day of discharge which was unremarkable for ultqf-kl-qdmh shunt. I discussed with the family the plan for discharge today expressed understanding of the risk benefits of going home and would like to go today. She will need to follow-up with her PCP within 1 week and I also have h er scheduled to follow-up with the vascular surgeon for evaluation of the right carotid artery, since it is contralateral to the lesion is not of an emergent need at this time. She can resume her home blood pressure medications tomorrow without any changes. Physical Exam Narrative General: Alert, unable to evaluate orientation, Cooperative, No apparent distress HEENT: Atraumatic, PERRLA, EOMI, Normocephalic Oral: Moist Mucosa Neck: Supple, No JVD Lungs: Diminished, Normal air movement, No rhonchi, No wheeze, No rales Cardiovascular: Regular rate, Regular Rhythm, Normal S1, Normal S2, No murmurs Abdomen: Soft, Non Tender, Non-Distended, No Hepato-splenomegaly Extremities: No edema, Capillary Refill Less than 3 Seconds Skin: No rashes, No breakdown Musculoskeletal: No Tenderness to Palpation of Joints or Extremities Neurological: Aphasia, Motor Exam 5/5 strength throughout, Sensory exam intact to light touch and pain, NIH of 5-6, limited by the fact that she has difficulty following commands Psych/Mental Status: Normal Affect, Appropriate Weight / BMI Weight Weight: 145 lb 7 oz Body Mass Index (BMI) 26.7 ABG / Lab / Microbiology Data 02/08/24 07:55 02/08/24 07:55 Laboratory: Laboratory Results - last 24 hr 02/08/24 07:55: WBC 8.2, RBC 4.03 L, Hgb 11.2 L, Hct 34.4 L, MCV 85.4, MCH 27.8, MCHC 32.6, RDW Std Deviation 43.5, RDW Coeff of Edi 13.9, Plt Count 411, MPV 8 .9, Immature Gran % (Auto) 0.500, Neut % (Auto) 70.2 H, Lymph % (Auto) 20.1, Harvey % (Auto) 6.9, Eos % (Auto) 1.8, Baso % (Auto) 0.5, Absolute Neuts (auto) 5.7, Absolute Lymphs (auto) 1.64, Nucleated RBC % 0, Sodium 137, Potassium 3.8, Chloride 107, Carbon Dioxide 23.0, Anion Gap 7, BUN 16, Creatinine 0.76, Estim Creat Clear Calc 47.95, Est GFR (MDRD) Af Amer 94, Est GFR (MDRD) Non-Af 78, BUN/Creatinine Ratio 21.1 H, Glucose 106, Calcium 8.9, Triglycerides 86, Cholesterol 162, LDL Cholesterol 96, VLDL Cholesterol 17, HDL Cholesterol 49 Radiography Diagnostic Testing: Radiology Impression Echocardiogram 02/08/24 11:25 Interpretation Summary Normal LV size. Left ventricular systolic function is normal. The left ventricular ejection fraction is 70 %. Mild (1+) tricuspid valve insufficiency. Pulmonary artery systolic pressure is 42 mmHg. Bubble contrast study negative for right to left interatrial shunt. Ordering Physician: Jayy Vera Referring Physician: Clyde Downing Performed By: Ree Magaña, SABINO, RVT D/C Instructions Discharge Diet: Low fat / Low cholesterol Call your doctor if you observe: Fever of 101 or Higher, Shortness of breath, Dizziness, Fainting spells, Swelling in the ankles, Chest pain and Increased palpitations (irregular heartbeat) Meaningful Use Info Meaningful Use Meaningful Use Diagnoses (Choose all that apply): None applicable Ischemic Stroke Statin Dosing Therapy Reference: STATIN DOSE THERAPY REFERENCE: * Patients > 75 years receive moderate or high dose statin therapy. * Patients 75 years or YOUNGER should receive HIGH intensity statin dose unless contraindicated. You will be required to document reason for non-treatment if statin daily dose does not meet guidelines. HIGH DOSE STATIN THERAPY DAILY Atorvastatin > than or = to 40 mg Rosuvastatin > than or = to 20 mg Amlodipine + Atorvastatin > than or = to 2.5/40 mg Ezetimibe + Simvastatin 10/80 mg Simvastatin 80mg Discharge Plan Admission Admit Date/Time: 02/07/24 11:20 Attending Provider: Jayy Vera Primary Care Provider: Clyde Downing Consulting Providers: Marquez Greenberg; Charlotte Pennington; Sharmila Rasmussen; Thania Romero; Adela Flynn; Wallace Esteban; Yamilet Sandhu; Connor James; Ryan Leone; Amy Oconnor; Alejandro Moreno; Emerita Hernández; Jose Zelaya; José Bro; Dimitri Thomas; Keyon Browne; Hong Child; Lien Corona; Rossy Dong Instructions Patient Instructions: Discharge Instructions for Stroke Discharge Orders/Prescriptions Prescriptions: New aspirin 81 mg Tablet,Chewable 81 mg PO BREAKFAST 30 Days Qty: 30 0RF atorvastatin 40 mg Tablet 40 mg PO QHS 30 Days Qty: 30 0RF Continued losartan 50 mg tablet 50 mg PO DAILY meloxicam 7.5 mg tablet 7.5 mg PO DAILY hydrochlorothiazide 12.5 mg capsule 12.5 mg PO DAILY sertraline 50 mg tablet 50 mg PO DAILY Discontinued ilzsxskwfq-lqmwmmiwf-dmylmjzyy 5-160-12.5 mg tablet 1 tab PO QDAY lactobacillus combination no.9 [Adult 50 Plus Probiotic] 4 billion cell capsule 4,000 mmu cells PO QDAY Other Ambulatory Orders: 30 Day Event Recorder Preventi (Routine) Timeframe: 1 Day Facility: [facility] - Location: Cardiovascular Services Ordered By: Dr. Jayy Vera Referrals / Follow Up: Ricardo Orr MD [Med Staff - Active Staff] - Within 2 Weeks (Right >70% ICA occlusion) Clyde Downing MD [Primary Care Provider] - Within 1 Week Disposition Disposition (needs filled in before D/C Order can be placed): Home Health Service Charges/Coding Visit Charges Inpatient E&M: 98523 Disch Hosp >30min
== END 2024-02-08 17:30 | disposition home health service (06) | DRG 66 ==
LOC: ED 10:42 → ICU 12:30
PROVIDERS: Admitting Provider Family Medicine; Emergency Provider Student in an Organized Health Care Education/Training Program; PCP Family Medicine; Visit Provider Family Medicine
DX: I63.9 Cerebral infarction, unspecified (principal); F32.A Depression, unspecified; I10 Essential (primary) hypertension; F41.9 Anxiety disorder, unspecified; R29.706 NIHSS score 6
CPT/HCPCS: 36415; 70450; 70496; 70498; 70551; 71045; 80048; 80061; 82962; 84484; 85025; 85610; 85730; 92523; 93005; 93306; 93880; 97162; 97166; 99285; Q9967

== ENCOUNTER → 2024-06-18 | Outpatient (CLI) | payer MEDICARE, SELFPAY ==
[2024-06-18 18:21] LABS: ALB/GLOB Ratio 0.8 RATIO (0.9-2.4); AST(SGOT) 19 U/L (15-37); Alanine Aminotransfer ALT/SGPT 19 U/L (13-56); Albumin, Serum 3.5 g/dL (3.2-5.0); Alkaline Phosphatase 99 U/L (45-117); Anion Gap 8 (5-15); BUN 21 mg/dL (7-18); BUN/Creat Ratio 25.5 RATIO (10-20); Calcium,Total 10.6 mg/dL (8.5-10.1); Chloride 103 mmol/L (98-107); Cholesterol 148 mg/dL (200); Creatinine, Serum 0.82 mg/dL (0.55-1.02); EST Glomerular Filtration Rate 71 mL/min (>60); Est Glom Filt Rate - Afr Amer 85 mL/min (>60); Globulin 4.5 g/dL (2.2-4.2); Glucose 120 mg/dL (74-106); High Density Lipoprotein 71 mg/dL; Sodium Level 137 mmol/L (136-145); Triglycerides 123 mg/dL; Very Low Density Lipoprotein 25 mg/dL (5-40)
== END | disposition home or self-care (01) ==
LOC: MFPLAB 14:42
PROVIDERS: PCP Family Medicine; Visit Provider Family Medicine
DX: I10 Essential (primary) hypertension (principal)
CPT/HCPCS: 36415; 80053; 80061

== ENCOUNTER 2024-07-27 12:00 | Outpatient (RCR) | payer MEDICARE, SELFPAY | END 2024-07-27 19:00 | disposition home or self-care (01) | LOC: SP 12:00 | PROVIDERS: PCP Family Medicine; Referring Provider Family Medicine; Visit Provider Family Medicine | DX: I69.320 Aphasia following cerebral infarction (principal) | CPT/HCPCS: 92507; 92523 ==

== ENCOUNTER 2024-07-27 13:35 | Emergency (ER) | payer MEDICARE, SELFPAY ==
[2024-07-27] VITALS (13 sets, daily range): BP systolic 107–171; BP diastolic 58–94; PULSE 73–98; RESP 14–33; TEMP 36.2–36.8; O2SAT 95–100; BMI 26.6
--- NOTE | 2024-07-27 14:21 | CT_ITS ---
STUDY: CT BRAIN WITHOUT CONTRAST REASON FOR EXAM: Female, 83 years old. Neuro deficit, acute, stroke suspected RADIATION DOSAGE (If Supplied By Facility): CTDIvol = ( ) mGy, DLP = ( ) mGycm TECHNIQUE: Transaxial CT imaging of the brain was performed without administration of intravenous contrast material. Individualized dose optimization techniques were used for this CT. COMPARISON: February 07, 2024 MRI FINDINGS: Normal soft tissue structures. Normal calvarium. There is mild cerebral atrophy with widening of the extra-axial spaces and ventricular dilatation. There are areas of decreased attenuation within the white matter tracts of the supratentorial brain, consistent with microvascular disease changes. There is left parietal volume loss and encephalomalacia. Normal basal ganglia and thalami. Normal brainstem. Normal cerebellum. There is no intracranial hemorrhage. There are no findings of an acute ischemic infarction. Normal visualized paranasal sinuses. CT/STROKE Brain/Head without Cont IMPRESSION: Chronic involutional changes of the brain. N.B. : The above Results were Read Back by Rodríguez Chance MD to Faraz Martel DO, and understanding confirmed on 07/27/2024 14:41:04 (ET). Electronically Signed: Rodríguez Chance MD at 14:43 EDT ,
--- NOTE | 2024-07-27 14:21 | CT_ITS ---
We are attempting to reach an attending provider to discuss findings. An addendum with communication details will be sent when the communication is complete. STUDY: CTA HEAD AND NECK WITH CONTRAST REASON FOR EXAM: Female, 83 years old. Neuro deficit, acute, stroke suspected RADIATION DOSAGE (If Supplied By Facility): CTDIvol = ( 23.62 ) mGy, DLP = ( 661.01 ) mGycm TECHNIQUE: CT angiography was performed with a multi-detector CT scanner. Data acquisition was obtained from the skull base through the vertex following intravenous administration of 100mL Isovue-370. MIP images were reconstructed from the axial data set. Post-processing of the angiographic images was performed, with multiplanar reformation and 3D reconstruction. Individualized dose optimization techniques were used for this CT. COMPARISON: February 07, 2024 FINDINGS: Normal bilateral petrous carotid arteries. Normal right cavernous carotid artery with a normal supraclinoid bifurcation. Normal left cavernous carotid artery with a normal supraclinoid bifurcation. Normal right A1 segments of the anterior cerebral artery. Normal left A1 segments of the anterior cerebral artery. Normal intact anterior communicating artery (ACOM). Normal bilateral A2 segments of the anterior cerebral arteries. Normal right M1 and M2 segments of the middle cerebral arteries, with a normal M1 bifurcation. Normal left M1 and M2 segments of the middle cerebral arteries, with a normal M1 bifurcation. Normal right posterior communicating artery (PCOM). There is non-visualization of the left posterior communicating artery (PCOM). Normal bilateral vertebral arteries. Normal basilar artery with a normal basilar bifurcation. The visualized bilateral superior cerebellar (SCA) arteries are normal. Normal bilateral P1, P2 and visualized P3 segments of the posterior cerebral arteries. There is no demonstrated aneurysm of the [facility] [place]. There is left parietal volume loss and encephalomalacia consistent with prior infarct. AORTIC ARCH: There is atherosclerotic calcific and noncalcified plaque formation of the aortic arch and great vessels arising from the aortic arch, without a hemodynamically significant stenosis. There is a normal origin of the brachiocephalic, left common carotid, and left subclavian arteries. RIGHT CAROTID ARTERIES: Normal right common carotid artery (CCA). There is mild atherosclerotic plaque formation with minimal narrowing of the right carotid bulb. There is moderate atherosclerotic plaque formation of the origin of the right internal carotid artery with an estimated stenosis of 50-69% stenosis. Normal visualized cervical portion of the right internal carotid artery. Normal origin of the right external carotid artery (ECA). LEFT CAROTID ARTERIES: Normal left common carotid artery (CCA). There is mild atherosclerotic plaque formation with minimal narrowing of the left carotid bulb. There is mild atherosclerotic plaque formation of the origin of the left internal carotid artery with less than 50% cross sectional diameter stenosis. Normal visualized cervical portion of the left internal carotid artery. Normal origin of the left external carotid artery (ECA). VERTEBRAL ARTERIES: Normal bilateral vertebral arteries. CT/STROKE CTA Head AND Neck W/Con IMPRESSION: No intracranial aneurysm or large vessel occlusion. Plaque with moderate, 50-69%, right internal carotid artery stenosis and mild, less than 50%, narrowing on the left. Electronically Signed: Rodríguez Chance MD at 15:00 EDT ,
--- NOTE | 2024-07-27 14:21 | EKG12_ITS ---
Test Reason : Blood Pressure : / mmHG Vent. Rate : 096 BPM Atrial Rate : 096 BPM P-R Int : 166 ms QRS Dur : 076 ms QT Int : 372 ms P-R-T Axes : 031 047 053 degrees QTc Int : 469 ms Normal sinus rhythm with sinus arrhythmia Nonspecific ST abnormality Abnormal ECG Confirmed by WENDY LEO, CRISTINA ([id number]), image editor JOSE MANTILLA ([id number]) on 07/30/2024 1:42:27 PM Referred By: Confirmed By:CRISTINA NGUYEN MD
--- NOTE | 2024-07-27 14:22 | EDS_ITS ---
HPI History of Present Illness Chief Complaint: Stroke Alert Informant: patient Narrative Narrative: Sent in from therapy with concerns for difficulty with her right upper extremity. She had a stroke this past January. 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 She denies headache. Denies weakness. She states difficulty with straightening her right thumb. She is right-hand dominant. [facility] Medical History DDD (degenerative disc disease), lumbar TMJ (temporomandibular joint syndrome) Hypertension Migraines Glaucoma Arthritis Environmental allergies Home Medications ?Medication ?Instructions ?Recorded ?Last Taken ?Type hydrochlorothiazide 12.5 mg capsule 12.5 mg PO DAILY 02/07/24 Unknown History losartan 50 mg tablet 50 mg PO DAILY 02/07/24 Unknown History sertraline 50 mg tablet 50 mg PO DAILY 02/07/24 Unknown History aspirin 81 mg chewable tablet 81 mg PO BREAKFAST 30 days #30 tabs 02/08/24 Unknown Rx atorvastatin 40 mg tablet 40 mg PO QHS 30 days #30 tabs 02/08/24 Unknown Rx Allergy/AdvReac Type Severity Reaction Status Date / Time No Known Allergies Allergy Verified 07/27/24 13:45 Family History Other CVA (cerebral vascular accident) Surgical History S/P appendectomy Social History Smoking Status: Unknown if ever smoked alcohol intake: never substance use type: does not use what type of physical activity do you participate in: walking and aerobics frequency: 3-4 times per week [facility] ED Constitutional Constitutional ED: Denies chills, fever(s) or sweats Eyes Eyes: Denies change in vision ENT ENT ED: Denies dysphagia or sore throat Cardiovascular Cardiovascular: Denies chest pain, leg edema, palpitations or racing heartbeat Respiratory/Chest Respiratory/Chest: Denies cough, dyspnea or dyspnea on exertion Gastrointestinal Gastrointestinal: Denies abdominal pain, diarrhea, nausea or vomiting Genitourinary Genitourinary ED: Denies dysuria, hematuria or urinary frequency Musculoskeletal Musculoskeletal: Denies back pain, extremity pain or neck pain Integumentary Denies rash or wounds Neurologic Neurologic: Reports paresthesias and other Details: Difficulty straightening her right thumb. ; Denies headache(s) or weakness EXAM Physical Exam Const Vital Signs: 07/27/24 13:39 07/27/24 14:30 07/27/24 14:43 Temperature 97.2 F L Temperature Source Oral Pulse Rate 80 92 95 Respiratory Rate 14 18 33 H Blood Pressure 148/58 H 107/74 132/72 H Blood Pressure Mean 88 85 92 Pulse Ox 99 99 99 Oxygen Delivery Method Room Air Room Air Room Air 07/27/24 14:44 07/27/24 14:51 07/27/24 15:21 Temperature Temperature Source Pulse Rate 98 94 Respiratory Rate 17 16 Blood Pressure 117/66 151/82 H Blood Pressure Mean 83 105 Pulse Ox 100 98 Oxygen Delivery Method Room Air Room Air Room Air 07/27/24 15:30 07/27/24 16:00 07/27/24 16:02 Temperature 98.2 F Temperature Source Pulse Rate 91 92 93 Respiratory Rate 19 H 15 17 Blood Pressure 124/72 H 171/90 H 168/74 H Blood Pressure Mean 89 117 105 Pulse Ox 98 97 98 Oxygen Delivery Method Room Air Room Air 07/27/24 16:30 07/27/24 17:24 07/27/24 17:30 Temperature Temperature Source Pulse Rate 91 93 89 Respiratory Rate 14 16 19 H Blood Pressure 138/89 H 168/94 H 155/93 H Blood Pressure Mean 105 118 113 Pulse Ox 98 99 99 Oxygen Delivery Method Room Air Room Air Room Air 07/27/24 18:00 07/27/24 18:30 Temperature Temperature Source Pulse Rate 88 73 Respiratory Rate 18 17 Blood Pressure 143/65 H 147/67 H Blood Pressure Mean 91 93 Pulse Ox 95 98 Oxygen Delivery Method Room Air Room Air Positive well nourished and well developed Constitutional Narrative: Slow on getting her words out. Nontoxic. General Appearance ED: well developed and NAD HEENT Reports moist mucous membranes normocephalic and atraumatic Eyes EOMs intact bilaterally and conjunctivae normal Eyes Narrative: Visual cano in all 4 quadrant intact to finger counting. General Eye ED: Yes normal appearance of both eyes Neck no lymphadenopathy and supple General: Negative for tenderness Chest Wall Chest: Negative for tenderness Resp normal respiratory effort and normal air movement Effort and Inspection: symmetric chest movement; Negative for respiratory distress Cardio regular rate, regular rhythm and no murmurs Peripheral Pulses: pulses 2+ throughout GI normal to inspection, nondistended, normoactive bowel sounds and non-tender Palpation: Negative for guarding or rebound tenderness present Back/Spine no CVA tenderness and no thoracic nor lumbar tenderness Extremity normal to inspection General Extremety ED: Negative for edema or tenderness General Extremity: Negative for edema Neuro Neuro Narrative: Alert person the place states the year is 2020. See NIH scale. Sensorium / Orientation: awake and alert Skin no rashes or lesions noted and no wounds NIHSS NIHSS Initial: 1a Level of Consciousness: 0 1b LOC Questions (Score 2 if aphasic/stupor): 1 1c LOC Commands (Only score 1st attempt): 0 2 Best Gaze (If aphasic, use reflexive mvmts.): 0 3 Visual: 0 4 Facial Palsy: 0 5 Motor Arm Right (UN = amputation/fusion): 1 5 Motor Arm Left: 0 6 Motor Leg Right: 0 6 Motor Leg Left: 0 7 Limb ataxia (Only + if out of proportion): 1 8 Sensory (Aphasia/stupor=0 or 1, coma=2): 1 9 Best Language: 1 10 Dysarthria (mute, coma=2, intubated=UN): 0 11 Extinction and Inattention (only scored if +): 0 Total Score: 5 MDM MDM MDM Narrative Medical decision making narrative: Interventions / MDM: Differential diagnosis: Stroke symptoms, paresthesia, ataxia, seizure Diagnosis considered but do not suspect: N/A My EKG interpretation: Sinus rate of 96, no ST or T wave changes. Imaging independently reviewed and interpreted by myself: CT brain: No acute process. CT angiogram: Stable changes right carotid internal artery. 1 view chest x-ray: No acute process. Also reviewed and discussed with radiology. External documents reviewed: Evaluation of her physical exam back in January when she has stroke symptoms she was unable to answer both questions she was unable to perform 1 task, her speech was given a 2. She was given 1 for extinction. Her MRI conformed a left temporal parietal infarct. Test considered but not ordered:N/A ED course: Patient NIH of 5 on evaluation. She reports chronic speech issues since her last stroke in January. Other deficits cannot tell me her age, right upper extremity slight drift, paresthesias right upper extremity, ataxia both upper extremities. Last normal 1 PM. Stroke team initiated. 1450: Stroke neurologist on the monitor was in the room. Discussion evaluation she had angina 5 with improved right upper extremity drift. However states new symptoms would be the paresthesia and the ataxia which would give her new NIH of 2. Therefore this is less than 4 stating and recommending no TNK. I agree with this at this time. Discussion with radiologist both her CT and CT angiogram negative for any new process. Neurology recommended reMRI, metabolic workup in the hospital. Review of her discharge summary there was a plan for an event monitor for 30 days unclear if this was performed since her stroke this past y. Plan for admission. I did speak with hospitalist Dr. Beltran for plan admission. While in the emergency department, MRI studies were ordered, there is preparation being made. With her claustrophobia she was ordered for 1 mg of p.o. Ativan. 1800: There was rapid response team to MRI for the patient. Apparently witnessed seizure activity. There is discussion from hospitalist with [facility] neurology. They recommended 2 mg of Ativan, they recommended seizure bolus of 60 mg per kilogram of Keppra. She will need continuous EEG which is not available here. Therefore preparations being made for transfer to [facility] neurology. Significant delay time for transferring at [facility] here. [facility] would like her there as soon as possible therefore [facility] arrangement will be made. Of note, patient did not get her MRI studies due to her seizure. Spouse was updated in the emergency department. Re-evaluation: stable Disposition discussed with patient/family/significant other: Patient Case discussed with consulting clinician: Stroke neurology This note was generated with [employer] dictation software. It may contain incorrect words, spelling, and punctuation that were not noted in checking the note before signing. Lab Data Attestation: I reviewed the patient's lab results. Labs: Laboratory Results - last 24 hr 07/27/24 07/27/24 07/27/24 14:40 15:00 15:35 WBC 8.0 RBC 3.81 L Hgb 10.2 L Hct 31.6 L MCV 82.9 MCH 26.8 L MCHC 32.3 RDW Std Deviation 44.7 H RDW Coeff of Edi 14.8 H Plt Count 327 MPV 8.7 Immature Gran % (Auto) 0.200 Neut % (Auto) 74.7 H Lymph % (Auto) 17.6 L [place] % (Auto) 6.4 Eos % (Auto) 0.7 Baso % (Auto) 0.4 Absolute Neuts (auto) 6.0 Absolute Lymphs (auto) 1.41 Nucleated RBC % 0 PT 14.4 INR 1.1 APTT 34.7 Sodium 135 L Potassium 3.3 L Chloride 104 Carbon Dioxide 24.0 Anion Gap 8 BUN 20 H Creatinine 0.75 Estim Creat Clear Calc 47.26 Est GFR (MDRD) Af Amer 95 Est GFR (MDRD) Non-Af 79 BUN/Creatinine Ratio 26.7 H Glucose 112 H Calcium 9.3 Troponin I High Sens 22 Urine Color Straw Urine Clarity Clear Urine pH 7.0 Ur Specific Crystal 1.005 Urine Protein Negative Urine Glucose (UA) Normal Urine Ketones Negative Urine Occult Blood Negative Urine Nitrite Negative Urine Bilirubin Negative Urine Urobilinogen Normal Ur Leukocyte Esterase Negative Urine RBC 0 SEEN Urine WBC 0 SEEN Ur Squamous Epith Cells 0 SEEN Urine Bacteria 0 SEEN Urine Mucus 0 SEEN POC Glucose 111 H Radiography Diagnostic Testing: Clinical Impression(s) from Imaging Studies Brain CT 07/27/24 14:21 IMPRESSION: Chronic involutional changes of the brain. N.B. : The above Results were Read Back by Rodríguez Chance MD to Faraz Martel DO, and understanding confirmed on 07/27/2024 14:41:04 (ET). Electronically Signed: Rodríguez Chance MD at 14:43 EDT , ADDENDUM: 07/27/24 1450 IMPRESSION: Chronic involutional changes of the brain. N.B. : The above Results were Read Back by Rodríguez Chance MD to Faraz Martel DO, and understanding confirmed on 07/27/2024 14:41:04 (ET). Electronically Signed: Rodríguez Chance MD at 14:43 EDT , Head/Neck CTA 07/27/24 14:21 IMPRESSION: No intracranial aneurysm or large vessel occlusion. Plaque with moderate, 50-69%, right internal carotid artery stenosis and mild, less than 50%, narrowing on the left. Electronically Signed: Rodríguez Chance MD at 15:00 EDT , ADDENDUM: 07/27/24 1509 IMPRESSION: No intracranial aneurysm or large vessel occlusion. Plaque with moderate, 50-69%, right internal carotid artery stenosis and mild, less than 50%, narrowing on the left. N.B. : The above Results were Read Back by Rodríguez Chance MD to Faraz Martel DO, and understanding confirmed on 07/27/2024 15:02:10 (ET). Electronically Signed: Rodríguez Chance MD at 15:00 EDT , Chest X-Ray 07/27/24 15:40 IMPRESSION: No acute radiographic abnormalities. Electronically Signed: Nelson Cedillo MD at 16:15 EDT , Brain CT 07/27/24 17:15 IMPRESSION: No acute intracranial abnormality. Left parieto-occipital encephalomalacia. Chronic involutional and ischemic changes of the brain. Electronically Signed: Nelson Cedillo MD at 18:07 EDT , Stroke Documentation Questions Stroke Team Activated: Yes Reviewed Inclusion/Exclusion criteria: Yes Was Patient considered for Endovascular Intervention?: No-CTA negative, determined not to be an endovascular candidate IV Thrombolytic Administered: No (New NIH of 2, not recommended per stroke neurology.) Critical Care Time Critical Care Time: Yes Critical care time (excluding procedures): 30-74 minutes, Discussing w/Patient &/or Family/Machine Set Up Operator, Discussing w/Consultants, Arranging Admission or Transfer, Performing Direct Patient Care at Bedside and - (35 minutes) Discharge Plan Triage Chief Complaint: Stroke Alert Other Complaint: Anxiety ED Provider: Faraz Martel Dx/Rx/DC Orders Clinical Impression: Paresthesia of right arm, CVA (cerebral vascular accident), Right arm weakness, Ataxia, Seizure Prescriptions: No Action losartan 50 mg tablet 50 mg PO DAILY hydrochlorothiazide 12.5 mg capsule 12.5 mg PO DAILY sertraline 50 mg tablet 50 mg PO DAILY aspirin 81 mg Tablet,Chewable 81 mg PO BREAKFAST 30 Days Qty: 30 0RF atorvastatin 40 mg Tablet 40 mg PO QHS 30 Days Qty: 30 0RF Primary Care Provider: Clyde Downing Referrals: Clyde Downing MD [Primary Care Provider] - Print Language: Angolan Disposition Disposition: Acute Care Hospital Discharge Location: [facility] Discharge Date/Time: 07/27/24 16:54
--- NOTE | 2024-07-27 14:37 | ED.RN ---
Log wait for [facility] to answer phone call both times.
[2024-07-27 14:47] LABS: Absolute Lymphocyte Count 1.41 X10^3/uL (0.83-4.51); Basophil# 0.03 X10^3/uL; Basophil% 0.4 % (0-1); Eosinophil# 0.06 X10^3/uL; Eosinophils% 0.7 % (0-5); Hematocrit 31.6 % (37-47); Hemoglobin 10.2 g/dL (12.0-15.0); Lymphocyte # 1.41 X10^3/ul (0.83-4.51); Lymphocyte % 17.6 % (19-41); Mean Corp Hgb Conc 32.3 g/dL (32-36); Mean Corpuscular Hgb 26.8 pg (27.0-32.0); Mean Corpuscular Volume 82.9 fL (81-99); Mean Platelet Vol. 8.7 fl (6.2-12.0); Monocyte# 0.51 X10^3/uL; Monocyte% 6.4 % (0-10); NRBC Flagged by Analyzer 0 % (0-5); Neutrophil # 5.98 X10^3/uL (2.7-7.7); Neutrophil % 74.7 % (47-70); Platelet Count 327 K/mm3 (150-450); RBC Distribution Width CV 14.8 % (11.6-14.6); RBC Distribution Width SD 44.7 fl (35.1-43.9); Red Blood Count 3.81 M/mm3 (4.2-5.4)
--- NOTE | 2024-07-27 15:01 | ED.RN ---
NIHSS waxes and wanes, pt has difficulty following instructions and communicating. Pt denies numbness in right arm at times, then will acknowledge at other times that she has loss of sensation in right arm. Pt becomes frustrated and refuses to follow commands.
--- NOTE | 2024-07-27 15:07 | ED.RN ---
upon pt arrival by ems pt was not having stroke like symptoms per ems. REPORT EMS RECEIVED FROM THERAPIST WAS THE PT WAS BASELINE WITH HER INABILITY TO GIVE AGE, BIRTHDAY AND ANSWER QUESTIONS. CHRONIC DEFICIT FROM HER STROKE IN JANUARY WAS THE CAUSE. IT WAS ALSO EXPLAINED THAT REPEATED QUESTIONS INCREASE HER FRUSTRATION AND ANXIETY. PT WAS ABLE TO FOLLOW COMMANDS AND THERE WEREN'T ANY NEW DEFICIT WHEN PT ARRIVED
[2024-07-27 15:21] LABS: Bedside Glucose 111 mg/dL (74-106)
[2024-07-27 15:21] LABS: International Normalized Ratio 1.1; Partial Thromboplast Time 34.7 Seconds (24.1-36.2); Prothrombin Time (Protime)PT. 14.4 SECONDS (11.7-14.9)
[2024-07-27 15:22] LABS: Anion Gap 8 (5-15); BUN 20 mg/dL (7-18); BUN/Creat Ratio 26.7 RATIO (10-20); Calcium,Total 9.3 mg/dL (8.5-10.1); Chloride 104 mmol/L (98-107); Creatinine, Serum 0.75 mg/dL (0.55-1.02); EST Glomerular Filtration Rate 79 mL/min (>60); Est Glom Filt Rate - Afr Amer 95 mL/min (>60); Estimated Creatinine Clearance 47.26 ml/min; Glucose 112 mg/dL (74-106); Potassium 3.3 mmol/L (3.5-5.1); Sodium Level 135 mmol/L (136-145); Troponin-I HS 22 pg/mL (3.0-54.0)
--- NOTE | 2024-07-27 15:39 | ED.RN ---
Called spouse to update of pt's arrival to ED
--- NOTE | 2024-07-27 15:40 | RAD_ITS ---
INDICATION: Neuro deficit, acute, stroke suspected EXAMINATION/TECHNIQUE: X-RAY - XR Chest 1 View COMPARISON: 02/07/2024. FINDINGS: The lungs are clear. The cardiomediastinal silhouette is unremarkable. No pleural effusion or pneumothorax. Degenerative changes of the thoracic spine. RAD/Chest 1 View IMPRESSION: No acute radiographic abnormalities. Electronically Signed: Nelson Cedillo MD at 16:15 EDT ,
--- NOTE | 2024-07-27 15:43 | PCM.HP.STD ---
HPI - General General Date of Admission: 07/27/24 Date of Service: 07/27/24 Chief Complaint: concern for cva HPI Narrative POONAM GOULD, is a 83-year-old female history of CVA, depression, hypertension presented to [facility] ED 07/27/2024 with concerns for difficulty with her right upper extremity. Had a stroke this past January and has some chronic speech issues from her stroke. She states her difficulty is mostly with straining her right thumb and she is right-hand dominant. Patient was a stroke alert in the ED. last known normal 1 PM. Neurology evaluated in the ED and did not recommend TNK. CT and CTA negative for any acute process. Neurology recommended hospital admission and further workup. Hospitalist contacted for admission.Patient was doing speech therapy today and had abrupt onset of right upper extremity weakness, sensory deficits, and ataxia around 1 PM. Interview is limited due to patient's expressive aphasia but she reports she just does not feel right, is having some difficulty with ambulating to and from the bathroom while in the ED, has decreased sensation and difficulty moving right hand as well as some expressive aphasia normal seems to have some receptive aphasia as well. No headache or changes in vision, speech problems are chronic since last stroke, did not voice any other new or acute complaints. [facility] Medical History DDD (degenerative disc disease), lumbar TMJ (temporomandibular joint syndrome) Hypertension Migraines Glaucoma Arthritis Environmental allergies Home Medications ?Medication ?Instructions ?Recorded ?Last Taken ?Type hydrochlorothiazide 12.5 mg capsule 12.5 mg PO DAILY 02/07/24 Unknown History losartan 50 mg tablet 50 mg PO DAILY 02/07/24 Unknown History sertraline 50 mg tablet 50 mg PO DAILY 02/07/24 Unknown History aspirin 81 mg chewable tablet 81 mg PO BREAKFAST 30 days #30 tabs 02/08/24 Unknown Rx atorvastatin 40 mg tablet 40 mg PO QHS 30 days #30 tabs 02/08/24 Unknown Rx Allergy/AdvReac Type Severity Reaction Status Date / Time No Known Allergies Allergy Verified 07/27/24 13:45 Family History Other CVA (cerebral vascular accident) Surgical History S/P appendectomy Social History Smoking Status: Unknown if ever smoked alcohol intake: never substance use type: does not use what type of physical activity do you participate in: walking and aerobics frequency: 3-4 times per week ROS ROS Narrative General: Denies fever/chills HENT: Denies headache, denies stuffy nose, denies sore throat EYES: Denies changes in vision Resp: Denies cough, denies shortness of breath Cardiac: Denies chest pain GI: Denies abdominal pain, denies changes in bowel, denies nausea/vomiting : Denies changes in urination Extremity: Denies swelling MSK: Right upper extremity weakness Neuro: Decreased sensation on right arm, difficulty with speech as well as some expressive and possibly receptive aphasia Heme: Denies any bleeding or bruising Skin: Denies rashes Psychiatric: No complaints voiced Vital Signs Vital Signs Vital Signs: 07/27/24 13:39 07/27/24 14:30 07/27/24 14:43 Temperature 97.2 F L Temperature Source Oral Pulse Rate 80 92 95 Respiratory Rate 14 18 33 H Blood Pressure 148/58 H 107/74 132/72 H Blood Pressure Mean 88 85 92 Pulse Ox 99 99 99 Oxygen Delivery Method Room Air Room Air Room Air 07/27/24 14:44 07/27/24 14:51 07/27/24 15:21 Temperature Temperature Source Pulse Rate 98 94 Respiratory Rate 17 16 Blood Pressure 117/66 151/82 H Blood Pressure Mean 83 105 Pulse Ox 100 98 Oxygen Delivery Method Room Air Room Air Room Air 07/27/24 15:30 Temperature Temperature Source Pulse Rate 91 Respiratory Rate 19 H Blood Pressure 124/72 H Blood Pressure Mean 89 Pulse Ox 98 Oxygen Delivery Method Room Air Weight Weight: 64.013 kg Body Mass Index (BMI) 26.6 Physical Exam Narrative General: Alert, patient with expressive aphasia, difficulty answering questions HEENT: Atraumatic, normocephalic Eyes: Anicteric, normal conjunctiva, extraocular movements intact, pupils pinpoint but equal Neck: Supple Respiratory: Clear to auscultation bilaterally, normal respiratory effort Cardiovascular: Regular rate and rhythm GI: Soft, nontender, nondistended Extremities: No edema Musculoskeletal: Strength 2+ out of 5 in right upper extremity, 5 out of 5 left upper extremity, 5- out of 5 right lower extremity, 5 out of 5 left lower extremity Neuro: Patient with expressive and seems to have aspect of receptive aphasia, cranial nerves II through XII intact, diminished sensation in right arm, unable to complete [id number] on right side and does have some ataxia with hand even just on bed, was unable to comprehend instruction for left hand [id number] but was able to alternate hand [id number] without profound difficulty Skin: No rashes appreciated Psych: Cooperative Results Lab / Micro Data 07/27/24 14:40 07/27/24 14:40 Labs: Laboratory Results - last 24 hr 07/27/24 14:40: WBC 8.0, RBC 3.81 L, Hgb 10.2 L, Hct 31.6 L, MCV 82.9, MCH 26.8 L, MCHC 32.3, RDW Std Deviation 44.7 H, RDW Coeff of Edi 14.8 H, Plt Count 327, MPV 8.7, Immature Gran % (Auto) 0.200, Neut % (Auto) 74.7 H, Lymph % (Auto) 17.6 L, [place] % (Auto) 6.4, Eos % (Auto) 0.7, Baso % (Auto) 0.4, Absolute Neuts (auto) 6.0, Absolute Lymphs (auto) 1.41, Nucleated RBC % 0, PT 14.4, INR 1.1, APTT 34.7, Sodium 135 L, Potassium 3.3 L, Chloride 104, Carbon Dioxide 24.0, Anion Gap 8, BUN 20 H, Creatinine 0.75, Estim Creat Clear Calc 47.26, Est GFR (MDRD) Af Amer 95, Est GFR (MDRD) Non-Af 79, BUN/Creatinine Ratio 26.7 H, Glucose 112 H, Calcium 9.3, Troponin I High Sens 22 07/27/24 15:00: POC Glucose 111 H Imaging Radiology Impression Brain CT 07/27/24 14:21 IMPRESSION: Chronic involutional changes of the brain. N.B. : The above Results were Read Back by Rodríguez Chance MD to Faraz Martel DO, and understanding confirmed on 07/27/2024 14:41:04 (ET). Electronically Signed: Rodríguez Chance MD at 14:43 EDT , ADDENDUM: 07/27/24 1450 IMPRESSION: Chronic involutional changes of the brain. N.B. : The above Results were Read Back by Rodríguez Chance MD to Faraz Martel DO, and understanding confirmed on 07/27/2024 14:41:04 (ET). Electronically Signed: Rodríguez Chance MD at 14:43 EDT Reading Location ID and State: [facility] / [place] , Service support , Head/Neck CTA 07/27/24 14:21 IMPRESSION: No intracranial aneurysm or large vessel occlusion. Plaque with moderate, 50-69%, right internal carotid artery stenosis and mild, less than 50%, narrowing on the left. Electronically Signed: Rodríguez Chance MD at 15:00 EDT , ADDENDUM: 07/27/24 1509 IMPRESSION: No intracranial aneurysm or large vessel occlusion. Plaque with moderate, 50-69%, right internal carotid artery stenosis and mild, less than 50%, narrowing on the left. N.B. : The above Results were Read Back by Rodríguez Chance MD to Faraz Martel DO, and understanding confirmed on 07/27/2024 15:02:10 (ET). Electronically Signed: Rodríguez Chance MD at 15:00 EDT , Assessment & Plan Assessment/Plan (1) Neurologic abnormality: PLAN: Plan # Right upper extremity paresthesias, ataxia, weakness?suspect CVA - patient given an initial NIH of 5 in the ED however given previous deficits it was suspected that her NIH was corrected to 2 so TNK was not recommended -Admit to tele -CT head w/ chronic changes in ED -CTA head and neck with moderate right internal carotid stenosis and mild narrowing on the left -MRI ordered -NIH q4hr -asa, statin -Echo w/ bubble study previously completed and negative so this was not reordered -PT/OT/Speech eval -Teleneuro consult ordered -Hold BP medications to allow for permissive hypertension for 24 hours unless SBP greater than 220 or DBP greater than 120 or until stroke is ruled out - patient was supposed to have a 30-day heart monitor after her discharge in January however they were unable to get this to work so they sent her back per chart review. Likely need one on discharge if this still has not been completed # history of CVA - patient with stroke back in January of this year, MRI confirmed left temporoparietal infarct at that time - Continue aspirin and statin - Patient with some right ICA stenosis and is followed with vascular surgery in the office last seen 02/21/2024 and he was considered asymptomatic and it was recommended that she continue medical therapy and monitor with duplex every 6 months # history of hypertension - permissive hypertension as above # chronic normocytic anemia - slightly down from baseline but with no acute or ongoing blood loss noted - repeat in a.m. #Hx depression -Continue sertraline #hypokalemia -repace -repeat in AM #DVT ppx: SCDs Susy Beltran MD Charges/Coding Visit Charges Inpatient E&M: 51176 Init Hosp L2
--- NOTE | 2024-07-27 15:43 | CHAPLAIN ---
Type of Pastoral Visit ___ Initial Visit ___ Follow-up Visit ___ On-call Visit ___ General Patient Visit ___ Spiritual Assessment ___ Family Conference ___ Bereavement _x__ Rapid Response ___ Code Blue ___ Other (describe below) Pastoral Care Referral From ___ Patient ___ Family ___ Nurse ___ Physician ___ Efficiency Miner ___ Curer Acid Drum _x__ Other (describe below) Sacrament/Intervention ___ Active listening ___ Anointing ___ Restoration ___ Bereavement ___ Communion ___ Mariaelena exploration ___ ___ Life review ___ Prayer ___ Reconciliation ___ Sacrament of Sick _x__ Supportive presence ___ Wedding ___ Other (describe below) Pastoral Comments responded to stroke alert in the ED; patient was in the Cat Scan and no family was present; pt did return to room and was able to communicate to staff; pt was actively being evaluated at this time
[2024-07-27 15:55] LABS: Bacteria 0 SEEN /hpf (None Seen); Color, Urine Straw (Yellow); Glucose, Dipstick Normal (Normal); Ketone-Dipstick Negative (Negative); Leukocyte Esterase-Dipstick Negative /ul (Negative); Mucous, Urine 0 SEEN /hpf (<or=2+); Nitrite-Dipstick Negative (Negative); Occult Blood-Urine Negative /ul (Negative); Protein-Dipstick Negative (Negative); Red Blood Cells-Urine 0 SEEN /hpf (0-5); Specific Gravity, Urine 1.005 (1.002-1.030); Squamous Epithelial Cells - UA 0 SEEN /hpf (5-10); Urine Bilirubin Dipstick Negative (Negative); Urine Clarity Clear (Clear); Urine Urobilinogen Normal (Normal); White Blood Cells 0 SEEN /hpf (0-5)
[2024-07-27] MEDS: LORazepam 1 MG Tablet PO (16:19)
--- NOTE | 2024-07-27 17:15 | CT_ITS ---
EXAMINATION : Head CT w/out contrast HISTORY : NEURO CHANGES, had prior CTA with contrast @ 1430 COMPARISON : None. TECHNIQUE : Multiple contiguous axial images were obtained from the skull base to the vertex without intravenous contrast. A radiation dose optimization technique was used for this scan. FINDINGS : There is no evidence for acute intracranial hemorrhage, mass effect, or midline shift. There is no extra-axial fluid collection. There are periventricular white matter changes consistent with chronic microvascular ischemic disease. There is sulcal widening and ventricular enlargement consistent with cerebral atrophy. There is normal cornelius-white differentiation, without CT evidence of acute ischemia or infarct. Left parieto-occipital encephalomalacia. The skull base and calvarium are unremarkable. The orbits are unremarkable. The paranasal sinuses are clear. The mastoid air cells are well-aerated. The soft tissues are unremarkable. CT/Brain/Head without Contrast IMPRESSION: No acute intracranial abnormality. Left parieto-occipital encephalomalacia. Chronic involutional and ischemic changes of the brain. Electronically Signed: Nelson Cedillo MD at 18:07 EDT ,
--- NOTE | 2024-07-27 17:28 | ED.RN ---
Pt sent to MRI, set to go directly to PCU after. DIRECTOR SUPPLY called in MRI for seizure like activity. Per MRI staff pt exhibited left arm jerking, bit tongue. Hospitalist at bedside. Pt now is unable to lift right arm or leg, exhibits rhythmic jerking of right leg, leans to left side, speech more garbled, less oriented. Pt taken to CT for repeat CT of head. Pt then taken back to ED, hospitalist remains at bedside, [facility] called for repeat evaluation of new symptoms. NIHSS increased to 15.
[2024-07-27] MEDS: LORazepam 2 MG/ML Syringe IV (17:45)
--- NOTE | 2024-07-27 18:08 | ED.RN ---
Attempted to call nurse to nurse report to [facility], staff asked this RN to call back in one hour. Thus RN explained pt was coming via [facility] and would be at their facility by then. Staff stated they would call back.
--- NOTE | 2024-07-27 18:53 | ED.RN ---
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
--- NOTE | 2024-07-27 20:29 | PCM.HOSP.N ---
Hospitalist Note Patient went to MRI prior to going to PCU, rapid response called and MRI for seizure-like activity at roughly 440, patient had left arm jerking, decreased responsiveness and bit her tongue. By my evaluation patient with rhythmic jerking of right leg, more garbled speech, unable to lift right arm but was responding. Taken directly to CT to evaluate for any kind of bleed and then taken back to the ED room. Called [facility] and describes symptoms, NIH increased to 15 and patient having rhythmic jerking, it was advised that she was likely having seizure activity especially given the area of her previous stroke and to give 2 g of Ativan and loaded with IV Keppra and the patient would need transferred to their facility for continuous EEG. This was communicated to ED physician as patient was never technically admitted to our hospital she had gone to CT scan and then directly back to ED. Patient transferred to [facility] via [facility], admission to our facility canceled
== END 2024-07-27 16:54 | disposition short-term general hospital (02) ==
LOC: ED 15:45 → PCU 16:53
PROVIDERS: Emergency Provider Emergency Medicine; PCP Family Medicine; Visit Provider Emergency Medicine
DX: I63.231 Cerebral infarction due to unspecified occlusion or stenosis of right carotid arteries (principal); Z86.73 Personal history of transient ischemic attack (TIA), and cerebral infarction without residual deficits; R27.0 Ataxia, unspecified
CPT/HCPCS: 70450; 70496; 70498; 71045; 80048; 81001; 82962; 84484; 85025; 85610; 85730; 93005; 96374; 96376; 99285; J7040; Q9967; A4216

== ENCOUNTER → 2024-08-03 | Outpatient (CLI) | payer MEDICARE, SELFPAY ==
[2024-08-03 15:07] LABS: Absolute Lymphocyte Count 1.34 X10^3/uL (0.83-4.51); Absolute Neutrophil Count 6.6 X10^3/uL (2.0-7.7); Basophil# 0.05 X10^3/uL; Basophil% 0.6 % (0-1); Eosinophil# 0.09 X10^3/uL; Hematocrit 37.9 % (37-47); Hemoglobin 12.3 g/dL (12.0-15.0); Lymphocyte # 1.34 X10^3/ul (0.83-4.51); Lymphocyte % 15.4 % (19-41); Mean Corp Hgb Conc 32.5 g/dL (32-36); Mean Corpuscular Hgb 27.1 pg (27.0-32.0); Mean Corpuscular Volume 83.5 fL (81-99); Mean Platelet Vol. 9.1 fl (6.2-12.0); Monocyte# 0.59 X10^3/uL; Monocyte% 6.8 % (0-10); NRBC Flagged by Analyzer 0 % (0-5); Neutrophil # 6.61 X10^3/uL (2.7-7.7); Neutrophil % 75.7 % (47-70); Platelet Count 429 K/mm3 (150-450); RBC Distribution Width CV 14.8 % (11.6-14.6); RBC Distribution Width SD 44.9 fl (35.1-43.9); Red Blood Count 4.54 M/mm3 (4.2-5.4); White Blood Count 8.7 K/mm3 (4.4-11.0)
[2024-08-03 15:27] LABS: Anion Gap 8 (5-15); BUN 26 mg/dL (7-18); BUN/Creat Ratio 28.5 RATIO (10-20); Chloride 105 mmol/L (98-107); Creatinine, Serum 0.91 mg/dL (0.55-1.02); EST Glomerular Filtration Rate 63 mL/min (>60); Est Glom Filt Rate - Afr Amer 76 mL/min (>60); Glucose 122 mg/dL (74-106); Potassium 3.8 mmol/L (3.5-5.1); Sodium Level 136 mmol/L (136-145)
[2024-08-07 14:10] LABS: KEPPRA (LEVETIRACETAM) 21.8 ug/mL (10.0-40.0)
== END | disposition home or self-care (01) ==
LOC: MTLAB 11:58
PROVIDERS: PCP Family Medicine; Referring Provider Family Medicine; Visit Provider Family Medicine
DX: R56.9 Unspecified convulsions (principal); R42 Dizziness and giddiness
CPT/HCPCS: 36415; 80048; 80177; 85025

== ENCOUNTER → 2024-09-14 | Outpatient (CLI) | payer MEDICARE, SELFPAY ==
[2024-09-14 10:56] LABS: ALB/GLOB Ratio 0.9 RATIO (0.9-2.4); AST(SGOT) 14 U/L (15-37); Alanine Aminotransfer ALT/SGPT 15 U/L (13-56); Albumin, Serum 3.4 g/dL (3.2-5.0); Alkaline Phosphatase 97 U/L (45-117); Anion Gap 7 (5-15); BUN 21 mg/dL (7-18); BUN/Creat Ratio 23.3 RATIO (10-20); Calcium,Total 9.5 mg/dL (8.5-10.1); Chloride 107 mmol/L (98-107); Cholesterol 162 mg/dL (200); EST Glomerular Filtration Rate 64 mL/min (>60); Est Glom Filt Rate - Afr Amer 77 mL/min (>60); Globulin 3.6 g/dL (2.2-4.2); Glucose 104 mg/dL (74-106); High Density Lipoprotein 63 mg/dL; Potassium 3.5 mmol/L (3.5-5.1); Sodium Level 140 mmol/L (136-145); Triglycerides 86 mg/dL; Very Low Density Lipoprotein 17 mg/dL (5-40)
[2024-09-14 11:08] LABS: Valproic Acid (Depakene) Level < 3 ug/mL (50-100)
== END | disposition home or self-care (01) ==
LOC: MFPLAB 09:22
PROVIDERS: PCP Family Medicine; Referring Provider Family Medicine; Visit Provider Family Medicine
DX: E78.5 Hyperlipidemia, unspecified (principal); R56.9 Unspecified convulsions
CPT/HCPCS: 36415; 80053; 80061; 80164

== ENCOUNTER → 2024-09-24 | Outpatient (CLI) | payer MEDICARE, SELFPAY ==
--- NOTE | 2024-09-24 09:55 | CDU_ITS ---
Reason For Study: Right ICA stenosis Rt. Velocities/BP Lt. Velocities/BP Prox CCA 108.4/12.6 cm/sec. Prox CCA 132.1/10.8 cm/sec. Mid CCA 109.7/12.6 cm/sec. Mid CCA 121.4/9.4 cm/sec. Dist CCA 104.7/11.4 cm/sec. Dist CCA 128/7.2 cm/sec. Prox ICA 236.9/23.6 cm/sec. Prox ICA 73.6/11.5 cm/sec. Mid ICA 145.5/16 cm/sec. Mid ICA 88.2/7.9 cm/sec. Dist ICA 91.9/13.3 cm/sec. Dist ICA 68.2/10.4 cm/sec. Rt. ICA/CCA = 2.16. Lt. ICA/CCA = 0.73. Prox ECA 192.6 cm/sec. Prox ECA 123.6 cm/sec. Rt. Vert. 47.4/8.1 cm/sec. Lt. Vert. 41/8 cm/sec. Right Extracranial There is intimal thickening but no significant atherosclerotic plaque noted in the right common carotid artery. There is heterogeneous, irregular atherosclerotic plaque noted in the right internal carotid artery. There is homogeneous, smooth atherosclerotic plaque noted in the right external carotid artery. Antegrade flow is noted in the right vertebral artery. Left Extracranial There is intimal thickening but no significant atherosclerotic plaque noted in the left common carotid artery. There is intimal thickening but no significant atherosclerotic plaque noted in the left internal carotid artery. There is heterogeneous, irregular atherosclerotic plaque noted in the left external carotid artery. Antegrade flow is noted in the left vertebral artery. Procedure Carotid Duplex 81593. This is a Carotid Duplex examination using B-mode, color flow and specral Doppler. Exam performed in department. VL/Carotid Duplex Ultrasound Interpretation Summary Severe (>70%) stenosis right extracranial internal carotid. Mild (<50%) stenosis left extracranial internal carotid. Patent and antegrade vertebrals bilaterally. Ordering Physician: Thania Wisdom Referring Physician: Clyde Downing Performed By: Mary Grace Metzger RVT
== END | disposition home or self-care (01) ==
LOC: CVS 09:51
PROVIDERS: PCP Family Medicine; Referring Provider Physician Assistant; Visit Provider Physician Assistant
DX: I65.21 Occlusion and stenosis of right carotid artery (principal)
CPT/HCPCS: 93880

== ENCOUNTER 2024-10-27 16:05 | Emergency (ER) | payer MEDICARE, SELFPAY ==
[2024-10-27] VITALS (14 sets, daily range): BP systolic 110–174; BP diastolic 60–111; PULSE 80–113; RESP 13–36; TEMP 36.2–37.1; O2SAT 91–100; BMI 24.7
--- NOTE | 2024-10-27 16:08 | EDS_ITS ---
HPI History of Present Illness Chief Complaint: Stroke Alert [facility] Medical History DDD (degenerative disc disease), lumbar TMJ (temporomandibular joint syndrome) Hypertension Migraines Glaucoma Arthritis Environmental allergies Home Medications ?Medication ?Instructions ?Recorded ?Last Taken ?Type hydrochlorothiazide 12.5 mg capsule 12.5 mg PO DAILY 02/07/24 10/27/24 History losartan 50 mg tablet 50 mg PO DAILY 02/07/24 10/27/24 History aspirin 81 mg chewable tablet 81 mg PO BREAKFAST 30 days #30 tabs 02/08/24 10/27/24 Rx levetiracetam 500 mg tablet 500 mg PO BID 10/27/24 10/27/24 History pitavastatin calcium 1 mg tablet 1 mg PO DAILY 10/27/24 10/27/24 History sertraline 100 mg tablet 100 mg PO DAILY 10/27/24 10/27/24 History Allergy/AdvReac Type Severity Reaction Status Date / Time No Known Allergies Allergy Verified 10/27/24 16:16 Family History Other CVA (cerebral vascular accident) Surgical History S/P appendectomy Social History Smoking Status: Unknown if ever smoked alcohol intake: never substance use type: does not use what type of physical activity do you participate in: walking and aerobics frequency: 3-4 times per week EXAM Physical Exam Const Vital Signs: 10/27/24 16:05 10/27/24 16:26 10/27/24 16:30 Temperature 98.6 F Temperature Source Oral Pulse Rate 89 80 Respiratory Rate 16 16 Blood Pressure 132/111 H Blood Pressure Mean 118 Blood Pressure Source Blood Pressure Position Blood Pressure Location Pulse Ox 99 100 Oxygen Delivery Method Room Air Room Air Room Air 10/27/24 16:45 10/27/24 16:55 10/27/24 17:00 Temperature Temperature Source Pulse Rate 85 89 Respiratory Rate 24 H 31 H Blood Pressure 137/82 H 137/82 H 148/78 H Blood Pressure Mean 100 101 Blood Pressure Source Monitor Blood Pressure Position Semi-Fowlers Blood Pressure Location Left Arm Pulse Ox 100 99 Oxygen Delivery Method Room Air 10/27/24 17:15 10/27/24 17:30 10/27/24 17:45 Temperature Temperature Source Pulse Rate 82 113 H 100 Respiratory Rate 18 31 H 26 H Blood Pressure 161/79 H 174/74 H 156/81 H Blood Pressure Mean 91 107 106 Blood Pressure Source Monitor Monitor Monitor Blood Pressure Position Semi-Fowlers Blood Pressure Location Left Arm Pulse Ox 100 96 98 Oxygen Delivery Method Room Air Room Air 10/27/24 18:00 10/27/24 18:15 10/27/24 18:30 Temperature Temperature Source Pulse Rate 95 92 89 Respiratory Rate 29 H 36 H 30 H Blood Pressure 166/84 H 160/70 H 113/71 Blood Pressure Mean 111 100 84 Blood Pressure Source Manual Manual Monitor Blood Pressure Position Blood Pressure Location Pulse Ox 97 96 91 Oxygen Delivery Method Room Air Room Air Room Air 10/27/24 18:45 10/27/24 18:45 10/27/24 19:00 Temperature 98.8 F Temperature Source Pulse Rate 86 84 Respiratory Rate 17 13 Blood Pressure 128/67 H 135/69 H Blood Pressure Mean 85 90 Blood Pressure Source Monitor Monitor Blood Pressure Position Semi-Fowlers Semi-Fowlers Blood Pressure Location Right Arm Right Arm Pulse Ox 95 97 Oxygen Delivery Method Room Air Room Air 10/27/24 19:30 Temperature 97.2 F L Temperature Source Temporal Pulse Rate 82 Respiratory Rate 14 Blood Pressure 110/60 Blood Pressure Mean 76 Blood Pressure Source Monitor Blood Pressure Position Supine Blood Pressure Location Right Arm Pulse Ox 98 Oxygen Delivery Method Room Air [facility] MDM MDM Narrative Medical decision making narrative: HISTORY OF PRESENT ILLNESS: 84-year-old female presents concern for acute CVA. Per EMS last known well was 3 PM on 10/27/2024. There is no report of blood thinners. The patient has difficult time providing history as she is speech difficulties. REVIEW OF SYSTEMS: Pertinent positives: Confusion, slurred speech Pertinent negatives: Unable to provide reliable hearing system as patient had change in mental status PHYSICAL EXAM: Nursing triage notes reviewed, Vital signs reviewed Constitutional: please see mdm HENT: MMM Eyes: Pupils equal round and reactive to light, Extraocular muscles intact Neck: No stridor, no JVD, full neck ROM Lungs: Clear to auscultation, No wheezing or rales. No increased work of breathing, no conversational dyspnea, no accessory muscle use, no nasal flaring. No respiratory distress noted Heart: Regular rate and rhythm, No murmurs, No rubs and No gallops, 2+ distal pulses (radial, femoral, posterior tibial) in all extremities Abdomen: Soft, there is no tenderness, rigidity, rebound or guarding, no obvious peritoneal signs, no palpable pulsatile abdominal masses, no auscultated abdominal bruit : No CVAT Extremities: No edema Neuro: Alert, oriented only to person but not place or time. Aphasia noted. Dysarthria noted. Right arm drift noted right leg drift noted. Patient cannot answer age or month. Extraocular muscles were intact. Visual cano were intact. No obvious ataxia. NIH of 6. Skin: No rash or lesions noted MEDICAL DECISION MAKING: Chief Complaint: Strokelike symptoms External records reviewed: Prior MRI reviewed from 02/07/2024 which showed isc hemic infarction posterior left temporal and parietal lobes. Factors affecting care: CVA, hypertension, hyperlipidemia, anxiety Social determinants of health: none History obtained from others: EMS, Consults: Stroke neurology (Dr. Sevilla), stroke radiology, Internal Medicine (Dr. Beltran). MDM Narrative: Patient was initially hemodynamically stable, afebrile and nontoxic-appearing. She difficulty with speech and had signs of right-sided weakness. Initial NIH was 6. The patient was a TNK candidate given her last known well was approximately 3 PM (~1.5 hours [employer]) I considered the following differential diagnosis: Acute CVA, TIA, Ryder's paralysis, focal seizure, toxic metabolic encephalopathy ALL IMAGES (IF OBTAINED) HAVE BEEN PERSONALLY REVIEWED AND INTERPRETED BY MYSELF . EKG with normal sinus rhythm, normal axis, normal intervals, no STEMI, no signs of atrial fibrillation Stroke radiology called and noted CT scan of the head, CT of the head and neck were negative for ICH or large vessel occlusion Risk and benefit discussion was undertaken with the patient and . Patient and were able to voice risk and benefits and agreed with TNK. TNK was given. Post TNK care initiated. Discussed the case at length with Dr. Sevilla (stroke neurologist) who noted we should also undertake a toxic/metabolic workup. At this point I added a urinalysis, tox screen and serum alcohol. High-sensitivity troponin is negative, no evidence of myocardial ischemia CBC with no leukocytosis, mild anemia, no thrombocytopenia No coagulopathy BMP without evidence of significant electrolyte abnormalities, no anion gap, no acute kidney injury. High-sensitivity troponin is negative, no evidence of myocardial ischemia I have personally reviewed the patient's chest x-ray. Chest x-ray is unremarkable for pulmonary edema, pneumothorax, pneumonia or focal cardiopulmonary abnormality. Serum alcohol negative Urine drug screen negative No signs of toxic or metabolic precipitating cause. After TNK was given the patient was noted to have some rhythmic movements in the right upper extremity. Given this may represent a focal seizure or hemorrhagic conversion repeat CT scan was ordered. Repeat CT was read by myself showed no evidence of obvious hemorrhage per Ativan and Keppra were given. Repeat CT show evidence of hemorrhagic conversion. Patient's movements are unexplained at this time may be related to focal seizure. Given the patient's complex presentation, status post TNKase status, seizure- like activity patient was transferred by [facility] to [facility] for definitive neurologic care. The patient and/or family, caregivers express understanding. The patient and/or family, caregivers agrees with the plan. Shared decision making: I will have a discussion with the patient and or visitors regarding risk/benefits of further testing or admission. They will be made aware of of the risk/benefits inherent in this decision they will be given the opportunity to voice understanding. Total critical care time today provided was at least 60 minutes. This excludes separately billable procedures. Critical care time (if documented) is secondary to the patient having high probability of clinically significant/life threatening deterioration in the patient's condition which required my urgent intervention. Impression: 1. Acute CVA 2. History of hypertension 3. History of CVA Dispo: Transfer to [facility] This note was generated with [employer]maz[employer] dictation software. It may contain incorrect words, spelling, and punctuation that were not noted in review of the chart prior to signing. Lab Data Labs: Laboratory Results - last 24 hr 10/27/24 10/27/24 10/27/24 16:25 17:01 17:12 WBC 7.0 RBC 4.14 L Hgb 11.3 L Hct 34.5 L MCV 83.3 MCH 27.3 MCHC 32.8 RDW Std Deviation 45.5 H RDW Coeff of Edi 15.0 H Plt Count 279 MPV 9.1 Immature Gran % (Auto) 0.300 Neut % (Auto) 61.2 Lymph % (Auto) 28.7 Hendricks % (Auto) 8.4 Eos % (Auto) 1.1 Baso % (Auto) 0.3 Absolute Neuts (auto) 4.3 Absolute Lymphs (auto) 2.01 Nucleated RBC % 0 PT 13.9 INR 1.0 APTT 32.9 Sodium 137 Potassium 3.6 Chloride 103 Carbon Dioxide 26.0 Anion Gap 7 BUN 25 H Creatinine 0.86 Estim Creat Clear Calc 41.78 Est GFR (MDRD) Af Amer 81 Est GFR (MDRD) Non-Af 67 BUN/Creatinine Ratio 28.9 H Glucose 98 Calcium 9.2 Troponin I High Sens 14 Urine Color Urine Clarity Urine pH Ur Specific [place] Urine Protein Urine Glucose (UA) Urine Ketones Urine Occult Blood Urine Nitrite Urine Bilirubin Urine Urobilinogen Ur Leukocyte Esterase Urine RBC Urine WBC Ur Squamous Epith Cells Urine Bacteria Urine Mucus Urine Opiates Screen NEGATIVE Urine Methadone Screen NEGATIVE Ur Barbiturates Screen NEGATIVE Ur Phencyclidine Scrn NEGATIVE Ur Amphetamines Screen NEGATIVE MDMA (Ecstasy) Screen NEGATIVE U Benzodiazepines Scrn NEGATIVE Urine Cocaine Screen NEGATIVE U Cannabinoids Screen NEGATIVE Ur Drug Screen Comment Ethyl Alcohol < 3.0 POC Glucose 93 10/27/24 17:40 WBC RBC Hgb Hct MCV MCH MCHC RDW Std Deviation RDW Coeff of Edi Plt Count MPV Immature Gran % (Auto) Neut % (Auto) Lymph % (Auto) Hendricks % (Auto) Eos % (Auto) Baso % (Auto) Absolute Neuts (auto) Absolute Lymphs (auto) Nucleated RBC % PT INR APTT Sodium Potassium Chloride Carbon Dioxide Anion Gap BUN Creatinine Estim Creat Clear Calc Est GFR (MDRD) Af Amer Est GFR (MDRD) Non-Af BUN/Creatinine Ratio Glucose Calcium Troponin I High Sens Urine Color Yellow Urine Clarity Clear Urine pH 6.0 Ur Specific [place] 1.010 Urine Protein Negative Urine Glucose (UA) Normal Urine Ketones Negative Urine Occult Blood 10 H Urine Nitrite Negative Urine Bilirubin Negative Urine Urobilinogen Normal Ur Leukocyte Esterase Negative Urine RBC 0-5 SEEN Urine WBC 0 SEEN Ur Squamous Epith Cells 0 SEEN Urine Bacteria 0 SEEN Urine Mucus 0 SEEN Urine Opiates Screen Urine Methadone Screen Ur Barbiturates Screen Ur Phencyclidine Scrn Ur Amphetamines Screen MDMA (Ecstasy) Screen U Benzodiazepines Scrn Urine Cocaine Screen U Cannabinoids Screen Ur Drug Screen Comment Ethyl Alcohol POC Glucose Radiography Diagnostic Testing: Clinical Impression(s) from Imaging Studies Brain CT 10/27/24 16:09 IMPRESSION: Remote left posterior MCA infarct. No acute disease. Electronically Signed: Jeet Fischer MD at 16:30 EST Reading Location ID and State: [facility] / [place] Tel , Service support , ADDENDUM: 10/27/24 1658 IMPRESSION: Remote left posterior MCA infarct. No acute disease. N.B. : The above Results were Read Back by Jeet Fischer MD to Song Yanez DO, and understanding confirmed on 10/27/2024 16:51:35 (ET). Electronically Signed: Jeet iFscher MD at 16:30 EST Reading Location ID and State: [facility] / [place] Tel , Service support , Head/Neck CTA 10/27/24 16:10 IMPRESSION: Normal CTA Head and neck with contrast. N.B. : The above Results were Read Back by Jeet Fischer MD to Song Yanez DO, and understanding confirmed on 10/27/2024 16:51:42 (ET). Electronically Signed: Jeet Fischer MD at 16:53 EST Reading Location ID and State: [facility] / [place] Tel , Service support , ADDENDUM: 10/27/24 1700 IMPRESSION: Normal CTA Head and neck with contrast. N.B. : The above Results were Read Back by Jeet Fischer MD to Song Yanez DO, and understanding confirmed on 10/27/2024 16:51:42 (ET). Electronically Signed: Jeet Fischer MD at 16:53 EST Reading Location ID and State: [facility] / [place] Tel , Service support , Brain CT 10/27/24 17:29 IMPRESSION: Remote infarct left MCA distribution. No hemorrhage. Electronically Signed: Jeet Fischer MD at 20:23 EST Reading Location ID and State: [facility] / [place] Tel , Service support , Chest X-Ray 10/27/24 17:48 IMPRESSION: Normal x-ray examination of the chest. Electronically Signed: Jeet Fischer MD at 20:28 EST , Discharge Plan Triage Chief Complaint: Stroke Alert ED Provider: Song Yanez Dx/Rx/DC Orders Prescriptions: No Action levetiracetam 500 mg tablet 500 mg PO BID sertraline 100 mg tablet 100 mg PO DAILY pitavastatin calcium 1 mg tablet 1 mg PO DAILY losartan 50 mg tablet 50 mg PO DAILY hydrochlorothiazide 12.5 mg capsule 12.5 mg PO DAILY aspirin 81 mg Tablet,Chewable 81 mg PO BREAKFAST 30 Days Qty: 30 0RF Primary Care Provider: Clyde Downing Referrals: Clyde Downing MD [Primary Care Provider] - Print Language: Yakut Disposition Disposition: Acute Care Hospital Discharge Location: [facility] Discharge Date/Time: 10/27/24 19:56
--- NOTE | 2024-10-27 16:09 | CT_ITS ---
We are attempting to reach an attending provider to discuss findings. An addendum with communication details will be sent when the communication is complete. STUDY: CT BRAIN WITHOUT CONTRAST REASON FOR EXAM: Female, 84 years old. Neuro deficit, acute, stroke suspected RADIATION DOSAGE (If Supplied By Facility): CTDIvol = ( ) mGy, DLP = ( 745.49 ) mGycm TECHNIQUE: Transaxial CT imaging of the brain was performed without administration of intravenous contrast material. Individualized dose optimization techniques were used for this CT. The protocol utilizes one or more of the following dose reduction techniques: automated exposure control, adjustment of mA and/or kV according to patient size,and/or use of iterative reconstruction technique. COMPARISON: CT brain July 27, 2024. FINDINGS: Normal soft tissue structures. Normal calvarium. Remote infarct left posterior parietal and temporal lobes. There is mild cerebral atrophy with widening of the extra-axial spaces and ventricular dilatation. Normal white matter tracts of the cerebral hemispheres. Normal basal ganglia and thalami. Normal brainstem. Normal cerebellum. There is no intracranial hemorrhage. There are no findings of an acute ischemic infarction. Normal visualized paranasal sinuses. CT/STROKE Brain/Head without Cont IMPRESSION: Remote left posterior MCA infarct. No acute disease. Electronically Signed: Jeet Fischer MD at 16:30 EST ,
--- NOTE | 2024-10-27 16:09 | EKG12_ITS ---
Test Reason : STROKE Blood Pressure : */* mmHG Vent. Rate : 87 BPM Atrial Rate : 87 BPM P-R Int : 160 ms QRS Dur : 76 ms QT Int : 370 ms P-R-T Axes : 38 57 47 degrees QTcB Int : 445 ms Normal sinus rhythm Normal ECG Confirmed by SHEREEN LEO, YAMILETH ([id number]), assignment editor RICKY HIGUERA ([id number]) on 10/30/2024 6:13:44 AM Referred By: Confirmed By: YAMILETH REGAN MD
--- NOTE | 2024-10-27 16:10 | CT_ITS ---
STUDY: CTA HEAD AND NECK WITH CONTRAST REASON FOR EXAM: Female, 84 years old. Neuro deficit, acute, stroke suspected RADIATION DOSAGE (If Supplied By Facility): CTDIvol = ( 17.02 ) mGy, DLP = ( 611.37 ) mGycm TECHNIQUE: CT angiography was performed with a multi-detector CT scanner. Data acquisition was obtained from the skull base through the vertex following intravenous administration of IV 100mL [id number]-[id number]. MIP images were reconstructed from the axial data set. Post-processing of the angiographic images was performed, with multiplanar reformation and 3D reconstruction. Individualized dose optimization techniques were used for this CT. The protocol utilizes one or more of the following dose reduction techniques: automated exposure control, adjustment of mA and/or kV according to patient size,and/or use of iterative reconstruction technique. COMPARISON: CT brain July 27, 2024. CTA brain July 27, 2024. FINDINGS: Normal bilateral petrous carotid arteries. Normal right cavernous carotid artery with a normal supraclinoid bifurcation. Normal left cavernous carotid artery with a normal supraclinoid bifurcation. Normal right A1 segments of the anterior cerebral artery. Normal left A1 segments of the anterior cerebral artery. There is non-visualization of the anterior communicating artery (ACOM). Normal bilateral A2 segments of the anterior cerebral arteries. Normal right M1 and M2 segments of the middle cerebral arteries, with a normal M1 bifurcation. Normal left M1 and M2 segments of the middle cerebral arteries, with a normal M1 bifurcation. Normal right posterior communicating artery (PCOM). Normal left posterior communicating artery (PCOM). Normal bilateral vertebral arteries. Normal basilar artery with a normal basilar bifurcation. The visualized bilateral superior cerebellar (SCA) arteries are normal. Normal bilateral P1, P2 and visualized P3 segments of the posterior cerebral arteries. There is no demonstrated aneurysm of the [place]. There is no demonstrated abnormality of the visualized brain. AORTIC ARCH: Normal visualized aortic arch. Normal origins of the brachiocephalic, left common carotid, and left subclavian arteries. RIGHT CAROTID ARTERIES: Normal right common carotid artery (CCA). There is moderate atherosclerotic plaque formation with moderate narrowing of the right carotid bulb. There is moderate atherosclerotic plaque formation of the origin of the right internal carotid artery with an estimated stenosis of 50-69% stenosis. Normal visualized cervical portion of the right internal carotid artery. Normal origin of the right external carotid artery (ECA). LEFT CAROTID ARTERIES: Normal left common carotid artery (CCA). Normal left common carotid bulb. Normal origin of the left internal carotid (ICA) artery without a hemodynamically significant stenosis. Normal visualized cervical portion of the left internal carotid artery. Normal origin of the left external carotid artery (ECA). VERTEBRAL ARTERIES: Normal bilateral vertebral arteries. Left vertebral artery anatomic variant directly from the arch. CT/STROKE CTA Head AND Neck W/Con IMPRESSION: Normal CTA Head and neck with contrast. N.B. : The above Results were Read Back by Jeet Fischer MD to Song Yanez DO, and understanding confirmed on 10/27/2024 16:51:42 (ET). Electronically Signed: Jeet Fischer MD at 16:53 EST ,
[2024-10-27 16:45] LABS: Absolute Lymphocyte Count 2.01 X10^3/uL (0.83-4.51); Absolute Neutrophil Count 4.3 X10^3/uL (2.0-7.7); Basophil# 0.02 X10^3/uL; Basophil% 0.3 % (0-1); Eosinophil# 0.08 X10^3/uL; Eosinophils% 1.1 % (0-5); Hematocrit 34.5 % (37-47); Hemoglobin 11.3 g/dL (12.0-15.0); Lymphocyte # 2.01 X10^3/ul (0.83-4.51); Lymphocyte % 28.7 % (19-41); Mean Corp Hgb Conc 32.8 g/dL (32-36); Mean Corpuscular Hgb 27.3 pg (27.0-32.0); Mean Corpuscular Volume 83.3 fL (81-99); Mean Platelet Vol. 9.1 fl (6.2-12.0); Monocyte# 0.59 X10^3/uL; Monocyte% 8.4 % (0-10); NRBC Flagged by Analyzer 0 % (0-5); Neutrophil # 4.29 X10^3/uL (2.7-7.7); Neutrophil % 61.2 % (47-70); Platelet Count 279 K/mm3 (150-450); RBC Distribution Width SD 45.5 fl (35.1-43.9); Red Blood Count 4.14 M/mm3 (4.2-5.4)
--- NOTE | 2024-10-27 16:46 | ED.RN ---
Delay in decision to administer tenektaplase d/t pt's inability to inderstand and requiring extensive education. Education ongoing provided by Dr. Yanez and neuro MD.
[2024-10-27] MEDS: TENECTEPLASE 2,145.6 MG IV (16:55)
[2024-10-27] MEDS: 0.9% Saline Lock 10 ML Syringe IV ×2 (16:56→16:58)
[2024-10-27 17:00] LABS: Anion Gap 7 (5-15); BUN 25 mg/dL (7-18); BUN/Creat Ratio 28.9 RATIO (10-20); Calcium,Total 9.2 mg/dL (8.5-10.1); Chloride 103 mmol/L (98-107); Creatinine, Serum 0.86 mg/dL (0.55-1.02); EST Glomerular Filtration Rate 67 mL/min (>60); Est Glom Filt Rate - Afr Amer 81 mL/min (>60); Estimated Creatinine Clearance 41.78 ml/min; Glucose 98 mg/dL (74-106); Potassium 3.6 mmol/L (3.5-5.1); Prothrombin Time (Protime)PT. 13.9 SECONDS (11.7-14.9); Sodium Level 137 mmol/L (136-145); Troponin-I HS 14 pg/mL (3.0-54.0)
[2024-10-27 17:01] LABS: Partial Thromboplast Time 32.9 Seconds (24.1-36.2)
[2024-10-27] MEDS: LORazepam 2 MG/ML Syringe 0.5 MG IV (17:29)
--- NOTE | 2024-10-27 17:29 | CT_ITS ---
STUDY: CT BRAIN WITHOUT CONTRAST REASON FOR EXAM: Female, 84 years old. post TNK, neuro change. CONTRAST SCAN AT 1611 TODAY. PRIOR CVA RADIATION DOSAGE (If Supplied By Facility): CTDIvol = ( 44.99 ) mGy, DLP = ( 1190.08 ) mGycm TECHNIQUE: Transaxial CT imaging of the brain was performed without administration of intravenous contrast material. Individualized dose optimization techniques were used for this CT. The protocol utilizes one or more of the following dose reduction techniques: automated exposure control, adjustment of mA and/or kV according to patient size,and/or use of iterative reconstruction technique. COMPARISON: 4:09 PM today FINDINGS: Normal soft tissue structures. Normal calvarium. There is mild cerebral atrophy with widening of the extra-axial spaces and ventricular dilatation. There are areas of decreased attenuation within the white matter tracts of the supratentorial brain, consistent with microvascular disease changes. Normal basal ganglia and thalami. Normal brainstem. Normal cerebellum. There is no intracranial hemorrhage. 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 Normal visualized paranasal sinuses. CT/Brain/Head without Contrast IMPRESSION: Remote infarct left MCA distribution. No hemorrhage. Electronically Signed: Jeet Fischer MD at 20:23 EST ,
[2024-10-27 17:31] LABS: Amphetamine Urine NEGATIVE (<1000 ng/mL); Barbiturate Urine NEGATIVE (< 200 ng/mL); Benzodiazepine Urine NEGATIVE (< 200 ng/mL); Cocaine Urine NEGATIVE (< 300 ng/mL); Ecstacy Urine NEGATIVE (< 500 ng/mL); Methadone Urine NEGATIVE (< 300 ng/mL); Opiates Urine NEGATIVE (< 300 ng/mL); PCP Urine NEGATIVE (< 25 ng/mL); THC Urine NEGATIVE (< 50 ng/mL); Vista UDS pH Range 6
[2024-10-27 17:33] LABS: Alcohol, Blood (Medical)-Serum < 3.0 mg/dL
[2024-10-27] MEDS: levETIRAcetam IV 1,500 MG in 0.9% Normal Saline (100mL Bag) 100 ML 460 MG IV (17:43)
[2024-10-27 17:44] LABS: Bacteria 0 SEEN /hpf (None Seen); Mucous, Urine 0 SEEN /hpf (<or=2+); Squamous Epithelial Cells - UA 0 SEEN /hpf (5-10); White Blood Cells 0 SEEN /hpf (0-5)
--- NOTE | 2024-10-27 17:48 | RAD_ITS ---
STUDY: X-RAY CHEST REASON FOR EXAM: Female, 84 years old. Neuro deficit, acute, stroke suspected TECHNIQUE: Single frontal view of the chest. COMPARISON: July 27 2024 FINDINGS: The lungs are clear and expanded. There is no demonstrated pleural abnormality. Normal size heart. Normal mediastinum and chintan. Normal visualized pulmonary arteries. Normal visualized aortic arch and descending thoracic aorta. Normal visualized thoracic spine. There is degenerative osteoarthritis of the bilateral shoulders. There is no demonstrated abnormality of the visualized soft tissue structures of the upper abdomen. RAD/Chest 1 View IMPRESSION: Normal x-ray examination of the chest. Electronically Signed: Jeet Fischer MD at 20:28 EST ,
[2024-10-27 17:51] LABS: Color, Urine Yellow (Yellow); Glucose, Dipstick Normal (Normal); Ketone-Dipstick Negative (Negative); Leukocyte Esterase-Dipstick Negative /ul (Negative); Nitrite-Dipstick Negative (Negative); Occult Blood-Urine 10 /ul (Negative); Protein-Dipstick Negative (Negative); Urine Bilirubin Dipstick Negative (Negative); Urine Clarity Clear (Clear); Urine Urobilinogen Normal (Normal)
[2024-10-27 17:55] LABS: Bedside Glucose 93 mg/dL (74-106)
[2024-10-27 18:03] LABS: Red Blood Cells-Urine 0-5 SEEN /hpf (0-5)
--- NOTE | 2024-10-27 18:30 | ED.RN ---
Dr. Yanez notified of variable NIHSS from 9 to 13 now, pt ability and willingness to follow NIHSS commands significantly impacted by pt tremors. Will continue to monitor.
[2024-10-27] MEDS: LORazepam 2 MG/ML Syringe 1 MG IV (18:37)
--- NOTE | 2024-10-27 18:42 | ED.RN ---
RECEIVED CALL FROM [facility], SPOKE WITH MELY. SHE STATED THE CREW IS ON THE WAY TO [facility] PT, ETA IS 33 MINUTES ([id number]).
--- NOTE | 2024-10-27 18:54 | ED.RN ---
RECEIVED CALL FROM [facility], FLIGHT ACCEPTED, CREW ETA [phone]. CANCELLED TRIP WITH [facility].
--- NOTE | 2024-10-27 19:46 | ED.RN ---
report given to Jaspreet goodwin and at the bedside.
== END 2024-10-27 19:56 | disposition short-term general hospital (02) ==
PROVIDERS: Emergency Provider Emergency Medicine; PCP Family Medicine; Visit Provider Emergency Medicine
DX: I63.9 Cerebral infarction, unspecified (principal); I10 Essential (primary) hypertension; R29.706 NIHSS score 6; Z86.73 Personal history of transient ischemic attack (TIA), and cerebral infarction without residual deficits; Z79.82 Long term (current) use of aspirin; Z79.899 Other long term (current) drug therapy
CPT/HCPCS: 51702; 70450; 70470; 70496; 70498; 71045; 80048; 80307; 81001; 82077; 82962; 84484; 85025; 85610; 85730; 93005; 96365; 96375; 96376; 99285; J3101; Q9967; A4216

== ENCOUNTER → 2025-01-07 | Outpatient (CLI) | payer MEDICARE, SELFPAY ==
[2025-01-07 19:34] LABS: ALB/GLOB Ratio 1.4 RATIO (0.9-2.4); AST(SGOT) 19 U/L (<=31); Alanine Aminotransfer ALT/SGPT 8 U/L (<=34); Albumin, Serum 4.1 g/dL (3.4-4.8); Alkaline Phosphatase 90 U/L (35-104); Anion Gap 11 (5-15); BUN 19 mg/dL (4-19); BUN/Creat Ratio 20.4 RATIO (10-20); Calcium,Total 9.7 mg/dL (7.6-11.0); Carbon Dioxide 22.3 mmol/L (21.0-32.0); Chloride 107 mmol/L (98-108); Cholesterol 174 mg/dL (<=200); Creatinine, Serum 0.92 mg/dL (0.70-1.20); EST Glomerular Filtration Rate 62 (>60); Globulin 2.9 g/dL (2.2-4.2); Glucose 96 mg/dL (70-99); High Density Lipoprotein 70 mg/dL; Low Density Lipoprotein Calc. 85 mg/dL; Potassium 4.3 mmol/L (3.3-5.1); Protein, Total 6.9 g/dL (5.9-8.4); Sodium Level 140 mmol/L (133-145); Total Bilirubin 0.31 mg/dL (0.00-1.30); Triglycerides 95 mg/dL; Very Low Density Lipoprotein 19 mg/dL (5-40)
== END | disposition home or self-care (01) ==
PROVIDERS: PCP Family Medicine; Referring Provider Family Medicine; Visit Provider Family Medicine
DX: E78.5 Hyperlipidemia, unspecified (principal)
CPT/HCPCS: 36415; 80053; 80061

== ENCOUNTER → 2025-02-22 | Outpatient (CLI) | payer MEDICARE, SELFPAY ==
--- NOTE | 2025-02-22 14:05 | CDU_ITS ---
Reason For Study Reason For Study: Rt ICA Stenosis Rt. Velocities/BP Lt. Velocities/BP Prox CCA 67.4/13.5 cm/sec. Prox CCA 87.5/9.3 cm/sec. Mid CCA 60.7/13.5 cm/sec. Mid CCA 101.6/5.0 cm/sec. Dist CCA 77.8/12.6 cm/sec. Dist CCA 72.8/13.9 cm/sec. Prox ICA 244.4/34.5 cm/sec. Prox ICA 75.3/12.6 cm/sec. Mid ICA 137.5/22.5 cm/sec. Mid ICA 117.4/26.1 cm/sec. Dist ICA 89.0/19.1 cm/sec. Dist ICA 35.3/9.7 cm/sec. Rt. ICA/CCA = 4.0. Lt. ICA/CCA = 1.2. Prox ECA 176.3/7.2 cm/sec. Prox ECA 102.3/0.0 cm/sec. Rt. Vert. 40.5/12.4 cm/sec. Lt. Vert. 30.8/9.9 cm/sec. Right Extracranial There is intimal thickening but no significant atherosclerotic plaque noted in the right common carotid artery. There is heterogeneous, irregular atherosclerotic plaque noted in the right internal carotid artery. There is homogeneous, smooth atherosclerotic plaque noted in the right external carotid artery. Antegrade flow is noted in the right vertebral artery. Left Extracranial There is intimal thickening but no significant atherosclerotic plaque noted in the left common carotid artery. There is intimal thickening but no significant atherosclerotic plaque noted in the left internal carotid artery. There is heterogeneous, irregular atherosclerotic plaque noted in the left external carotid artery. Antegrade flow is noted in the left vertebral artery. Procedure Carotid Duplex [id number]. This is a Carotid Duplex examination using B-mode, color flow and specral Doppler. Exam performed in department. VL/Carotid Duplex Ultrasound Interpretation Summary Severe (>70%) stenosis right extracranial internal carotid. Mild (<50%) stenosis left extracranial internal carotid. Patent and antegrade vertebrals bilaterally. Ordering Physician: Thania Wisdom Referring Physician: Clyde Downing Performed By: Mariaelena Stiles RVT
== END | disposition home or self-care (01) ==
LOC: CVS 14:03
PROVIDERS: PCP Family Medicine; Referring Provider Physician Assistant; Visit Provider Physician Assistant
DX: I65.21 Occlusion and stenosis of right carotid artery (principal)
CPT/HCPCS: 93880

== ENCOUNTER 2025-03-08 20:28 | Observation (INO) | payer MEDICARE, SELFPAY ==
[2025-03-08 20:31] VITALS: BP 161/85; PULSE 69; RESP 16; TEMP 36.6; O2SAT 99
--- NOTE | 2025-03-08 21:07 | EKG12_ITS ---
Test Reason : CONFUSION Blood Pressure : */* mmHG Vent. Rate : 82 BPM Atrial Rate : 82 BPM P-R Int : 174 ms QRS Dur : 76 ms QT Int : 382 ms P-R-T Axes : 34 48 47 degrees QTcB Int : 446 ms Normal sinus rhythm Normal ECG Confirmed by SHEREEN LEO, YAMILETH ([id number]), film editor JOSE MANTILLA ([id number]) on 03/11/2025 6:55:19 AM Referred By: Confirmed By: YAMILETH REGAN MD
[2025-03-08 21:20] VITALS: BMI 23.6
[2025-03-08 21:26] VITALS: BP 157/102; PULSE 90; RESP 16; TEMP 36.8; O2SAT 96
--- NOTE | 2025-03-08 21:27 | ED.RN ---
PT WITH NEW ONSET CONFUSION. BROUGHT IN BY EMS. THIS RN CONTACTED NEIGHBOR, PAIGE BUSBY, WHO STATES THAT PATIENT HAD A STROKE OVER ONE MONTH AGO. UNABLE TO VERIFY EXACT DATE. 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 NEIGHBOR STATES THAT SISTER, HANK, CALLED EMS BECAUSE PATIENT SEEMED CONFUSED ON PHONE. NEIGHBOR DOES NOT HAVE CONTACT INFORMATION FOR ANY FAMILY MEMBERS, UNABLE TO VERIFY WHEN PATIENT WAS LAST SEEN AT BASELINE. PT DOES NOT HAVE PHONE PRESENT, NO CONTACTS LISTED IN CHART. UNABLE TO VERIFY LAST KNOW WELL AT THIS TIME. PATIENT IS AOX1, HAS BRUISING ON RIGHT EYELID AND ABRASIONS TO RIGHT ELBOW. PT IS UNSURE IF SHE FELL. DR. ARIAS AWARE.
[2025-03-08 21:29] VITALS: BP 130/117; PULSE 99; RESP 20; O2SAT 97
--- NOTE | 2025-03-08 21:32 | CT_ITS ---
PROCEDURE: CTA HEAD AND NECK W/ CONTRAST 03/08/2025 REASON FOR EXAM: NEURO SYMPTOMS TECHNIQUE: CTA imaging of the head and neck from the aortic arch to the skull vertex with out contrast and with intravenous contrast. Multiplanar and multisequence images were obtained. One or more dose reduction techniques were used (e.g., Automated exposure control, adjustment of the mA and/or kV according to patient size, use of iterative reconstruction technique). COMPARISON: 10/27/2024 FINDINGS: No evidence of acute intracranial hemorrhage, midline shift or mass effect. Large area of encephalomalacia involving the left temporoparietal lobe consistent with chronic insult. No new suspicious cortical edema. Generalized cerebral atrophy and chronic small-vessel ischemic changes. No hydrocephalus. No depressed calvarial fracture. Paranasal sinuses and mastoid air cells are clear. Mild irregular non calcified plaque along the aortic arch. Bilateral subclavian arteries are without significant stenosis. Right common and external carotid arteries are without significant stenosis. Moderate short-segment stenosis of the proximal right ICA (up to 70%) due to noncalcified plaque. Left common, internal and external carotid arteries are without significant stenosis. Bilateral vertebral arteries and basilar artery are without significant stenosis. No large vessel occlusion, high-grade stenosis or sizable aneurysm involving the [id number]. Dural venous sinuses are patent. No pathologic parenchymal enhancement. No suspicious neck mass or adenopathy. Lung apices are clear. No acute osseous abnormality. Multilevel degenerative changes of the cervical spine. CT/CTA Head AND Neck W/ Contrast IMPRESSION: 1. No acute intracranial abnormality. Atrophy and chronic ischemic changes as above. 2. Moderate short-segment stenosis of the proximal right ICA (up to 70%). 3. No large vessel occlusion of the [id number]. No sizable aneurysm. Reading Location: [facility]
[2025-03-08 21:50] LABS: Absolute Neutrophil Count 7.1 X10^3/uL (2.0-7.7); Basophil# 0.04 X10^3/uL; Basophil% 0.4 % (0-1); Eosinophil# 0.03 X10^3/uL; Eosinophils% 0.3 % (0-5); Hemoglobin 13.2 g/dL (12.0-15.0); Lymphocyte % 15.2 % (19-41); Mean Corp Hgb Conc 33.8 g/dL (32-36); Mean Corpuscular Hgb 28.6 pg (27.0-32.0); Mean Corpuscular Volume 84.6 fL (81-99); Mean Platelet Vol. 9.5 fl (6.2-12.0); Monocyte# 0.55 X10^3/uL; NRBC Flagged by Analyzer 0 % (0-5); Neutrophil # 7.14 X10^3/uL (2.7-7.7); Neutrophil % 77.8 % (47-70); Platelet Count 252 K/mm3 (150-450); RBC Distribution Width CV 14.8 % (11.6-14.6); RBC Distribution Width SD 45.2 fl (35.1-43.9); Red Blood Count 4.61 M/mm3 (4.2-5.4); White Blood Count 9.2 K/mm3 (4.4-11.0)
[2025-03-08 21:56] LABS: International Normalized Ratio 1.1
--- OUTSIDE RECORDS SUMMARY | 2025-03-08 21:59 | XMS RPT_ITS | CCD ---
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 Clyde Downing Primary Care Provider Dr. Clyde Downing Referring Provider Dr. Rachael Duque Attending Provider Dr. Clyde Downing Primary Care Provider Dr. Clyde Downing Referring Provider Dunia, Dr. Cano Attending Provider [phone] Dr. Anselmo Potts Emergency Provider [phone] Dr. Jayy Vera Admit Provider Dr. Jayy Vera Attending Provider Dr. Jayy Vera Other Provider MD Marquez Greenberg Other Provider Unavailable Dr. Charlotte Pennington Other Provider MD Sharmila Rasmussen Other Provider Unavailable Dr. Thania Romero Other Provider Dr. Adela Flynn Other Provider Dr. Yaniv Greco Other Provider Dr. Yamilet Sandhu Other Provider Dr. Connor James Other Provider Dr. Ryan Leone Other Provider MD Amy Oconnor Other Provider Dr. Alejandro Moreno Other Provider [phone] Emerita Hernández Other Provider Dr. Jose Zelaya Other Provider Dr. José Bro Other Provider Dr. Dimitri Thomas Other Provider Dr. Keyon Browne Other Provider Dr. Hong Child Other Provider Dr. Lien Corona Other Provider Unavailable MD Iker Yousef Other Provider Unavailable Dr. Ricardo Orr Attending Provider Dr. Desmond Storm Attending Provider Clyde Downing MD Primary Care Provider Dr. Clyde Downing Primary Care Provider Dr. Clyde Downing Referring Provider Dr. Rachael Duque Attending Provider CLYDE DOWNING Primary Care Unavailable GINGER SEVILLA Admitting Unavailable SONG YANEZ Referring Unavailable YANIV GRECO Attending Unavailable DONN DENTON Admitting Unavailable JOSIAS JOSEPH Attending Unavailabl e CONSULT, NEUROLOGY-STROKE ALERT Consulting Unavailable FARAZ HARRISON Referring Unavailable Dr. Clyde Downing MD Primary Care Provider Dr. Clyde Downing MD Attending Provider Dr. Clyde Downing MD Referring Provider Thania Veras Attending Provider [phone] Thania Veras Referring Provider [phone] Ricardo Orr MD Attending Provider Dr. Song Yanez DO Attending Provider Dr. Song Yanez DO Emergency Provider Dr. Clyde Downing MD Primary Care Provider Dr. Clyde Downing MD Attending Provider Dr. Clyde Downing MD Referring Provider Thania Veras Attending Provider Thania Veras Referring Provider [phone] Ricardo Orr MD Attending Provider Downing, Clyde Referring Unavailable Downing, Clyde Primary Care Unavailable Downing, Clyde Attending Unavailable Wisdom, Thania Attending Unavailable Wisdom, Thania Referring Unavailable Downing, Clyde Primary Care Unavailable Downing, Cylde Attending Unavailable Downing, Clyde Referring Unavailable Downing, Clyde Primary Care Unavailable Downing, Clyde Primary Care Unavailable Downing, Clyde Attending Unavailable Downing, Clyde Referring Unavailable Downing, Clyde Primary Care Unavailable Downing, Clyde Attending Unavailable Downing, Clyde Primary Care Unavailable Faraz Harrison Attending Unavailable Downing, Clyde Primary Care Unavailable Dominga, Ricardo Attending Unavailable Downing, Clyde Primary Care Unavailable Susy Beltran Attending Unavailable Tahmina, Faraz Referring Unavailable Wisdom, Thania Referring Unavailable Downing, Clyde Primary Care Unavailable Dominga, Ricardo Attending Unavailable Downing, Clyde Primary Care Unavailable Song Yanez Attending Unavailable Downing, Clyde Referring Unavailable Downing, Clyde Primary Care Unavailable Downing, Clyde Attending Unavailable Wisdom, Thania Attending Unavailable Wisdom, Thania Referring Unavailable Downing, Clyde Primary Care Unavailable Medications Current Medications Medication Drug Class(es) Dates Sig (Normalized) Sig (Original) aspirin 81 mg chewable tablet (7 sources) Platelet Aggregation Inhibitor, Nonsteroidal Anti-inflammator y Drug Start: 4 End: 5 take 1 tablet by mouth at breakfast Aspirin 81 mg Tablet,Chewable Active 81 mg PO WITH BREAKFAST 30 30 February 08, 2024 12:00am hydroCHLOROthiazide 12.5 mg oral capsule (8 sources) Thiazide Diuretic Start: 4 End: 5 take 1 capsule by mouth once daily Hydrochlorothiazide 12.5 mg capsule Active 12.5 mg PO DAILY February 07, 2024 12:00am levETIRAcetam 500 mg oral tablet (7 sources) Start: 5 take 1 tablet by mouth twice daily Levetiracetam 500 mg tablet Active 500 mg PO TWICE A DAY October 27, 2024 1:00am Start: 07-29-2024 End: 11-27-2024 take 500 mg by mouth every twelve hours 500 mg, Oral, EVERY 12 HOURS, First dose on 10/27/24 at 2230, Until Discontinued Start: 07-28-2024 End: 07-29-2024 500 mg, Intravenous, EVERY 1 2 HOURS, First dose on 07/28/24 at 2100, Until Discontinued, Administer by IV push at a rate not to exceed 500 mg/min. pitavastatin calcium 1 mg oral tablet (4 sources) HMG-CoA Reductase Inhibitor Start: 10-27-2024 take 1 tablet by mouth once daily Pitavastatin Calcium 1 mg tablet Active 1 mg PO DAILY October 27, 2024 1:00am Start: 06-20-2024 End: 10-31-2024 Pitavastatin Calcium 1 MG ta blet Take 1 tablet by mouth every 3 days. 06/20/2024 10/31/2024 Discontinued (Stop Taking at Discharge) rosuvastatin calcium 5 mg oral tablet (2 sources) HMG-CoA Reductase Inhibitor Start: 10-30-2024 End: 10-31-2024 take 1 tablet by mouth once daily Rosuvastatin 5 MG tablet Take 1 tablet by mouth daily. 30 tablet 3 10/31/2024 Active ubidecarenone 100 mg / vitamin e 5 unt oral capsule (2 sources) take 1 capsule by mouth once daily Coenzyme Q10 (CoQ-10) 100 MG capsule Take 1 capsule by mouth daily. Instructed by PCP to take to help with statin tolerance. Active Completed/Discontinued Medications Medication Drug Class(es) Dates Sig (Normalized) Sig (Original) Acetaminophen (2 sources) Start: 10-29-2024 End: 10-31-2024 take 1 tablet by mouth every four hours as needed Acetaminophen (TYLENOL) tablet 325 mg Start: 07-27-2024 End: 07-30-2024 take 1 tablet by mouth every four hours as needed 650 mg, Oral, EVERY 4 HOURS NEEDED, Starting on Tue07/27/24 at 2030, Until 07/30/24 at 1515, Severe Pain, Oral temp > 99.5, Maximum dose of acetaminophen is 4000 mg from all sources in 24 hours. amLODIPine 5 mg / hydroCHLOROthiazide 12.5 mg / valsartan 160 mg oral tablet (7 sources) Thiazide Diuretic, Dihydropyridine Calcium Channel Billy, Angiotensin 2 Receptor Billy Start: 12-20-2017 End: 02-08-2024 take 5-160 tablets by mouth once daily Vpkusitffa-Bgqkqwyud-Uumvwbjes 5-160-12.5 mg tablet Discontinued 1 {tbl} PO daily December 20, 2017 12:00am February 08, 2024 2:15pm Start: 12-20-2017 End: 02-08-2024 take 1 tablet by mouth once daily Borehziftc-Wmtdxinbm-Xkfvqrwgu Discontin ued 1 TABLET PO daily December 20, 2017 12:00am February 08, 2024 2:15pm atorvastatin 40 mg oral tablet (3 sources) HMG-CoA Reductase Inhibitor Start: 02-08-2024 End: 10-27-2024 take 1 tablet by mouth at bedtime Atorvastatin 40 mg Tablet Discontinued 40 mg PO AT BEDTIME February 08, 2024 12:00am October 27, 2024 6:10pm docusate sodium 100 mg oral capsule (1 source) Start: 07-28-2024 End: 07-30-2024 take 100 mg by mouth every twelve hours 100 mg, Oral, EVERY 12 HOURS, First dose on Tue07/28/24 at 1000, Until Discontinued 0.4 ml enoxaparin sodium 100 mg/ml prefilled syringe (2 sources) Low Molecular Weight Heparin Start: 10-30-2024 End: 10-31-2024 inject 40 mg by subcutaneous injection every twenty-four hours 40 mg, Subcutaneous, EVERY 24 HOURS, First dose on Tue10/30/24 at 0900, Until Discontinued, For SUBCUTANEOUS route ONLY: alternate injection sites between left and right abdominal wall, pinching location and avoiding area around navel. If unable to use abdominal sites, may use the front or side of thighs., Indications: DVT/PE prophylaxis Start: 07-28-2024 End: 07-30-2024 inject 40 mg by subcutaneous injection every twenty-four hours 40 mg, Subcutaneous, EVERY 24 HOURS, First dose on Tue07/28/24 at 0900, Until Discontinued, For SUBCUTANEOUS route ONLY: alternate injection sites between left and right abdominal wall, pinching location and avoiding area around navel. If unable to use abdominal sites, may use the front or side of thighs., Indications: DVT/PE prophylaxis 1 ml hydrALAZINE hydrochloride 20 mg/ml injection (3 sources) Arteriolar Vasodilator Start: 10-29-2024 End: 10-31-2024 take 10 mg intravenously every hour as needed 10 mg, Intravenous, EVERY 1 HOUR NEEDED, Starting on 10/29/24 at 0737, Until Tue10/31/24 at 1358, Blood Pressure (High), Systolic Blood Pressure greater than 180 mmHg OR Diastolic Blood Pressure greater than 105 mmHg and heart rate LESS THAN 60 beats per minute. HOLD if heart rate greater than 60. Start: 10-27-2024 End: 10-31-2024 10 mg, Intravenous, EVERY 10 MINUTES NEEDED, 3 doses, Starting on 10/27/24 at 2034, Until Tue10/31/24 at 1358, systolic blood pressure greater than 180 OR diastolic blood pressure greater than 105. HOLD if heart rate greater than 60. Start: 07-28-2024 End: 07-30-2024 take 1 tablet by mouth every eight hours as needed 25 mg, Oral, EVERY 8 HOURS NEEDED, Starting on 07/28/24 at 0946, Until Tue07/30/24 at 1515, Other, SBP > 160, DBP > 100 hydrOXYzine hydrochloride 10 mg oral tablet (1 source) Antihistamine Start: 10-31-2024 End: 10-31-2024 take 1 dose by mouth once 10 mg, Oral, ONCE, 1 dose, On Tue10/31/24 at 1130 labetalol hydrochloride 5 mg/ml injectable solution (2 sources) beta-Adrenergic Billy Start: 10-29-2024 End: 10-31-2024 take 10 mg intravenously every hour as needed 10 mg, Intravenous, EVERY 1 HOUR NEEDED, Starting on Tue10/29/24 at 0737, Until Tue10/31/24 at 1358, Systolic Blood Pressure greater than 180 mmHg Diastolic Blood Pressure greater than 105 mmHg and heart rate GREATER THAN 60 beats per minute., Hold if Heart Rate LESS THAN 60 beats per minute. For vials: labetalol should be treated as a SINGLE USE VIAL. Discard remaining contents after one use. Start: 10-27-2024 End: 10-31-2024 20 mg, Intravenous, EVERY 10 MINUTES NEEDED, 3 doses, Starting on 10/27/24 at 203, Until Tue10/31/24 at 1358, Administer for systolic blood pressure greater than 180 OR diastolic blood pressure greater than 105. HOLD if heart rate less than 60., Administration duration: up to 20 mg over 2 minutes. 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 For vials: labetalol should be treated as a SINGLE USE VIAL. Discard remaining contents after one use. Lactobacillus Combination No.9 (Adult 50 Plus Probiotic) 4 billion cell capsule (7 sources) Start: 12-20-2017 End: 02-08-2024 take 4 capsules by mouth once daily Lactobacillus Combination No.9 (Adult 50 Plus Probiotic) 4 billion cell capsule Discontinued 4000 NMA PO daily December 20, 2017 12:00am February 08, 2024 2:15pm Start: 12-20-2017 End: 02-08-2024 take 4 capsules by mouth once daily Lactobacillus Combination No.9 (Adult 50 Plus Probiotic) 4 billion cell capsule Discontinued 4000 MMU CELLS PO daily December 20, 2017 12:00am February 08, 2024 2:15pm Start: 12-20-2017 take 4 capsules by m outh once daily Lactobacillus Combination No.9 (Adult 50 Plus Probiotic) 4 billion cell capsule Active 4000 MMU CELLS PO daily December 19, 2017 11:00pm Start: 12-20-2017 take 4 capsules by m outh once daily Lactobacillus Combination No.9 (Adult 50 Plus Probiotic) 4 billion cell capsule Active 4000 MMU CELLS PO daily December 20, 2017 12:00am LORazepam 1 mg oral tablet (1 source) Benzodiazepine Start: 10-28-2024 End: 10-29-2024 take 1 dose by mouth once 1 mg, Oral, ONCE DIRECTED, 1 dose, Starting on 10/28/24 at 1415, Until 10/29/24 at 2115, Anxiety, for use prior to MRI losartan potassium 50 mg oral tablet (8 sources) Angiotensin 2 Receptor Billy Start: 02-07-2024 End: 10-31-2024 melatonin 3 mg oral tablet (1 source) Start: 07-28-2024 End: 07-30-2024 take 6 mg by mouth once daily at bedtime as needed 6 mg, Oral, DAILY AT BEDTIME NEEDED, Starting on 07/28/24 at 0945, Until 07/30/24 at 1515, Insomnia, First line meloxicam 7.5 mg oral tablet (4 sources) Nonsteroidal Anti-inflammatory Drug Start: 02-07-2024 End: 02-21-2024 take 1 tablet by mouth once daily Meloxicam 7.5 mg tablet Discontinued 7.5 mg PO DAILY February 07, 2024 12:00am February 21, 2024 1:44pm 2 ml ondansetron 2 mg/ml injection (1 source) Serotonin-3 Receptor Antagonist Start: 07-28-2024 End: 07-30-2024 take 4 mg intravenously every six hours as needed 4 mg, Intravenous, EVERY 6 HOURS NEEDED, Starting on 07/28/24 at 0945, Until 07/30/24 at 1515, Nausea / Vomiting Polyethylene glycol (MIRALAX) packet 17 g (1 source) Start: 10-29-2024 End: 10-31-2024 Polyethylene glycol (MIRALAX) packet 17 g polyethylene glycol 3350 68400 mg powder for oral solution (1 source) Osmotic Laxative Start: 07-28-2024 End: 07-30-2024 17 g, Oral, 2 TIMES DAILY NEEDED, Starting on 07/28/24 at 0945, Until 07/30/24 at 1515, Constipation 1st Line, Constipation 3rd line microencapsulated potassium chloride 20 meq extended release oral tablet (2 sources) Start: 07-29-2024 End: 07-29-2024 40 mEq, Oral, ONCE, 1 dose, On 07/29/24 at 1145, Swallow tablets whole; do not crush, chew, or suck on tablet. Tablet may also be broken in half and each half swallowed separately. Start: 07-29-2024 End: 07-29-2024 20 mEq, Oral, ONCE, 1 dose, On 07/29/24 at 0230, Swallow tablets whole; do not crush, chew, or suck on tablet. Tablet may also be broken in half and each half swallowed separately. Senna Leaves (1 source) Start: 10-29-2024 End: 10-31-2024 Senna (SENOKOT) tablet 8.6 mg sennosides, residential 8.6 mg oral tablet (1 source) Start: 07-27-2024 End: 07-30-2024 take 1 dose by mouth every two hours 8.6 mg, Oral, DAILY EVERY MORNING, First dose on 07/27/24 at 2100, Until Discontinued, Hold if BM in last 2 hours. sertraline 50 mg oral tablet (10 sources) Serotonin Reuptake Inhibitor Start: 10-28-2024 End: 10-31-2024 take 100 mg by mouth once daily 100 mg, Oral, DAILY, First dose on 10/28/24 at 0900, Until Discontinued Start: 10-27-2024 take 1 tablet by christopher th once daily Sertraline 100 mg tablet Active 100 mg PO DAILY October 27, 2024 1:00am Start: 04-11-2024 End: 07-30-2024 take 1 tablet by mouth once daily Sertraline 100 MG tablet Take 1 tablet by mouth daily. 04/11/2024 Active Start: 02-07-2024 End: 10-27-2024 take 1 tablet by mouth once daily Sertraline 50 mg tablet Discontinued 50 mg PO DAILY February 07, 2024 12:00am October 27, 2024 6:09pm 1000 ml sodium chloride 9 mg/ml injection (2 sources) Start: 10-29-2024 End: 10-30-2024 Intravenous, at 75 mL/hr, CONTINUOUS, Starting on Tue10/29/24 at 0745, Until Tu10/30/24 at 0758 Start: 07-27-2024 End: 07-28-2024 Intravenous, at 100 mL/hr, C ONTINUOUS, Starting on Tue07/27/24 at 2315, Until 07/28/24 at 0914 Problems Active Problems Problem Classification Problem Date Documented Date Episodic/Chronic Acute cerebrovascular disease (12 sources) Cerebrovascular accident; Translations: [Cerebral infarction, unspecified] Onset: 07-27-2024 02-07-2024 Chronic Disorders of lipid metabolism (7 sources) Hyperlipidemia; Translations: [Other hyperlipidemia] Onset: 07-27-2024 07-30-2024 Chronic Epilepsy; convulsions (3 sources) Seizure disorder; Translations: [Epilepsy, unspecified, intractable, without status epilepticus] Onset: 10-27-2024 10-31-2024 Chronic Essential hypertension (7 sources) Essential hypertension; Translations: [Essential (primary) hypertension] Onset: 07-11-2024 07-30-2024 Chronic Fluid and electrolyte disorders (5 sources) Disorder of electrolytes; Translations: [Other disorders of electrolyte and fluid balance, not elsewhere classified] Onset: 10-27-2024 10-31-2024 Episodic Late effects of cerebrovascular disease (1 source) Aphasia following cerebral infarction; 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] Onset: 09-05-2024 Chronic Occlusion or stenosis of precerebral arteries (3 sources) Right carotid artery stenosis; Translations: [Occlusion and stenosis of right carotid artery] Onset: 02-27-2025 02-21-2024 Chronic Other acquired deformities (7 sources) Spondylolisthesis; Translations: [Spondylolisthesis, site unspecified] 02-22-2019 Episodic Other and ill-defined cerebrovascular disease (2 sources) Cerebrovascular disease; Translations: [Other cerebrovascular vasospasm and vasoconstriction] Onset: 10-27-2024 10-31-2024 Chronic Other and ill-defined cerebrovascular disease (1 source) Other cerebrovascular vasospasm and vasoconstriction; Translations: [Other cerebrovascular vasospasm and vasoconstriction] Onset: 10-27-2024 Chronic Other bone disease and musculoskeletal deformities (20 sources) Segmental and somatic dysfunction; Translations: [Segmental and somatic dysfunction of cervical region] 12-20-2017 Episodic Other bone disease and musculoskeletal deformities (7 sources) Segmental and somatic dysfunction of cervical region; Translations: [Nonallopathic lesions, cervical region] Episodic Other bone disease and musculoskeletal deformities (7 sources) Segmental and somatic dysfunction of lumbar region; Translations: [Nonallopathic lesions, lumbar region] Episodic Other bone disease and musculoskeletal deformities (7 sources) Segmental and somatic dysfunction of pelvic region; Translations: [Nonallopathic lesions, pelvic region] Episodic Other bone disease and musculoskeletal deformities (7 sources) Segmental and somatic dysfunction of thoracic region; Translations: [Nonallopathic lesions, thoracic region] Episodic Other circulatory disease (1 source) History of cerebrovascular accident; Translations: [Personal history of transient ischemic attack (TIA), and cerebral infarction without residual deficits] 07-30-2024 Episodic Other connective tissue disease (2 sources) Muscle weakness of upper limb; Translations: [Other symptoms and signs involving the musculoskeletal system] 08-04-2024 Episodic Other connective tissue disease (2 sources) Neurological deficit; Translations: [Other symptoms and signs involving the nervous system] 07-27-2024 Episodic Other nervous system disorders (3 sources) Disorder of brain; Translations: [Encephalopathy, unspecified] Onset: 07-28-2024 07-28-2024 Chronic Other nervous system disorders (2 sources) Ataxia; Translations: [Ataxia, unspecified] 08-04-2024 Episodic Other nervous system disorders (2 sources) Paresthesia of right upper limb; Translations: [Paresthesia of skin] 08-04-2024 Episodic Other nervous system disorders (1 source) Slurred speech; Translations: [Slurred speech] Onset: 01-24-2025 Episodic Spondylosis; intervertebral disc disorders; other back problems (14 sources) Degeneration of lumbar intervertebral disc; Translations: [Other intervertebral disc degeneration, lumbar region] Chronic Spondylosis; intervertebral disc disorders; other back problems (14 sources) Backache; Translations: [Dorsalgia, unspecified] Episodic Past or Other Problems Problem Classification Problem Date Documented Da te Episodic/Chronic Deficiency and other anemia (4 sources) Normocytic anemia; Translations: [Anemia, unspecified] Onset: 07-28-2024 07-30-2024 Episodic Deficiency and other anemia (2 sources) Anemia, unspecified; Translations: [Anemia, unspecified] Onset: 07-27-2024 Episodic Epilepsy; convulsions (6 sources) Seizure; Translations: [Unspecified convulsions] Onset: 07-27-2024 07-30-2024 Episodic Other circulatory disease (2 sources) Personal history of transient ischemic attack (TIA), and cerebral infarction without residual deficits; Translations: [Personal history of transient ischemic attack (TIA), and cerebral infarction without residual deficits] Onset: 07-27-2024 Episodic Other connective tissue disease (1 source) Other symptoms and signs involving the nervous system; Translations: [Other symptoms and signs involving the nervous system] Onset: 07-27-2024 Episodic Other nervous system disorders (1 source) Paresthesia of skin; Translations: [Paresthesia of skin] Onset: 08-16-2024 Episodic Results Test Name Value Interpretation Reference Range Facility Duplex ultrasound of carotid artery reportOrdered By: Ricardo Orr on 02-26-2025 Study report [facility] [address] [place] [address] Carotid Duplex Ultrasound 02/22/25 1411 MR#: [id number] Acct: [id number] Name: POONAM VELOZ Rep #:[id number] : 1940 84 From: Ricardo Schwab Attending Dr: SEEMA Hooker Stat us: REG CLI Ordering Dr: Thania Wisdom Date: Location: [facility] Sex: F C Admitted: Reason For Study Reason For Study: Rt ICA Stenosis Rt. Velocities/BP Lt. Velocities/BP Prox CCA 67.4/13.5 cm/sec. Prox CCA 87.5/9.3 cm/sec. Mid CCA 60.7/13.5 cm/sec. Mid CCA 101.6/5.0 cm/sec. Dist CCA 77.8/12.6 cm/sec. Dist CCA 72.8/13.9 cm/sec. Prox ICA 244.4/34.5 cm/sec. Prox ICA 75.3/12.6 cm/sec. Mid ICA 137.5/22.5 cm/sec. Mid ICA 117.4/26.1 cm/sec. Dist ICA 89.0/19.1 cm/sec. Dist ICA 35.3/9.7 cm/sec. Rt. ICA/CCA = 4.0. Lt. ICA/CCA = 1.2. Prox ECA 176.3/7.2 cm/sec. Prox ECA 102.3/0.0 cm/sec. Rt. Vert. 40.5/12.4 cm/sec. Lt. Vert. 30.8/9.9 cm/sec. Right Extracranial There is intimal thickening but no significant atherosclerotic plaque noted in the right common carotid artery. There is heterogeneous, irregular atherosclerotic plaque noted in the right internal carotid artery. There is homogeneous, smooth atherosclerotic plaque noted in the right external carotid artery. Antegrade flow is noted in the right vertebral artery. Left Extracranial There is intimal thickening but no significant atherosclerotic plaque noted in the left common carotid artery. There is intimal thickening but no significant atherosclerotic plaque noted in the left internal carotid artery. There is heterogeneous, irregular atherosclerotic plaque noted in the left external carotid artery. Antegrade flow is noted in the left vertebral artery. Procedure Carotid Duplex [id number]. This is a Carotid Duplex examination using B-mode, color flow and specral Doppler. Exam performed in department. VL/Carotid Duplex Ultrasound Interpretation Summary Severe (>70%) stenosis right extracranial internal carotid. Mild (<50%) stenosis left extracranial internal carotid. Patent and antegrade vertebrals bilaterally. Ordering Physician: Thania Wisdom Referring Physician: Clyde Downing Performed By: Mariaelena Stiles RVT 02/26/25 1512 Date _ Ricardo Orr MD CC: SEEMA Hooker; Dr. Clyde Downing MD ~ Date Dictated: 02/22/25 1411 Date Transcribed: 02/26/251511 Formulator Compounder: Signed [facility] Work Phone: Carotid Duplex Ultrasoundon 02-22-2025 Carotid Duplex Ultrasound [facility] [address] [place] [address] Carotid Duplex Ultrasound 02/22/25 141 MR#: [id number] Acct: [id number] Name: POONAM VELOZ Rep #: [id number] : 1940 84 From: Ricardo Orr MD Attending Dr: SEEMA Hooker Status: REG CLI Ordering Dr: Thania Wisdom Date: 02/22/25 Location: [facility] Sex: F C Admitted: Reason For Study Reason For Study: Rt ICA Stenosis Rt. Velocities/BP Lt. Velocities/BP Prox CCA 67.4/13.5 cm/sec. Prox CCA 87.5/9.3 cm/sec. Mid CCA 60.7/13.5 cm/sec. Mid CCA 101.6/5.0 cm/sec. Dist CCA 77.8/12.6 cm/sec. Dist CCA 72.8/13.9 cm/sec. Prox ICA 244.4/34.5 cm/sec. Prox ICA 75.3/12.6 cm/sec. Mid ICA 137.5/22.5 cm/sec. Mid ICA 117.4/26.1 cm/sec. Dist ICA 89.0/19.1 cm/sec. Dist ICA 35.3/9.7 cm/sec. Rt. ICA/CCA = 4.0. Lt. ICA/CCA = 1.2. Prox ECA 176.3/7.2 cm/sec. Prox ECA 102.3/0.0 cm/sec. Rt. Vert. 40.5/12.4 cm/sec. Lt. Vert. 30.8/9.9 cm/sec. Right Extracranial There is intimal thickening but no significant atherosclerotic plaque noted in the right common carotid artery. There is heterogeneous, irregular atherosclerotic plaque noted in the right internal carotid artery. There is homogeneous, smooth atherosclerotic plaque noted in the right external carotid artery. Antegrade flow is noted in the right vertebral artery. Left Extracranial There is intimal thickening but no significant atherosclerotic plaque noted in the left common carotid artery. There is intimal thickening but no significant atherosclerotic plaque noted in the left internal carotid artery. There is heterogeneous, irregular atherosclerotic plaque noted in the left external carotid artery. Antegrade flow is noted in the left vertebral artery. Procedure Carotid Duplex [id number]. This is a Carotid Duplex examination using B-mode, color flow and specral Doppler. Exam performed in department. VL/Carotid Duplex Ultrasound Interpretation Summary Severe (>70%) stenosis right extracranial internal carotid. Mild (<50%) stenosis left extracranial internal carotid. Patent and antegrade vertebrals bilaterally. Ordering Physician: Thania Wisdom Referring Physician: Clyde Downing Performed By: Mariaelena Stiles RVT 02/26/25 1512 Date Ricardo Orr MD CC: SEEMA Hooker; Dr. Clyde Downing MD Date Dictated: 02/22/25 1411 Date Transcribed: 02/26/25 1512 Formulator Compounder: Signed Normal [facility] Anion gap in Serum or Plasma Ordered By: Clyde Downing on 01-07-2025 Anion gap [Moles/Vol] 11 mmol/L 5-15 [facility] [place] BUN/creatinine ratioOrdered By: Clyde Downing on 01-07-2025 Urea nitrogen/Creatinine [Mass ratio] 20.4 mg/mg High 10-20 [facility] Bilirubin, totalOrdered By: Clyde Downing on 01-07-2025 Bilirubin [Mass/Vol] 0.31 mg/dL 0.00-1.30 [facility] Calculated very low density lipoprotein (VLDL) cholesterol measurementOrdered By: Clyde Downing on 01-07-2025 Calculated very low density lipoprotein (VLDL) cholesterol measurement 19 mg/dL - [facility] VLDL Cholesterol 19 mg/dL - [facility] Carbon dioxide, total [Moles /volume] in Central venous bloodOrdered By: Clyde Downing on 01-07-2025 CO2 [Moles/Vol] 22.3 mmol/L 21.0-32.0 [facility] Chloride assayOrdered By: Seema Downing on 01-07-2025 Chloride [Moles/Vol] 107 mmol/L 98-108 [facility] Comprehensive Metabolic Prof ilon 01-07-2025 Albumin [Mass/Vol] 4.1 g/dL Normal 3.4-4.8 [facility] Comment on above: Performed By: #### L 500.4100, L500.4050 #### [facility] [address] [place], [address] Albumin/Globulin [Mass ratio] 1.4 {ratio} Normal 0.9-2.4 [facility] Comment on above: Performed By: #### L 500.4100, L500.4050 #### [facility] [address] [place], [address] ALK PHOS 90 U/L Normal 35-104 [facility] Comment on above: Performed By: #### L 500.4100, [id number] #### [facility] [address] [place], [address] ALT [Catalytic activity/Vol] 8 U/L Normal <=34 [facility] Comment on above: Performed By: #### L 500.4100, [id number] #### [facility] [address] [place], [address] AST [Catalytic activity/Vol] 19 U/L Normal <=31 [facility] Comment on above: Performed By: #### L 500.4100, [id number] #### [facility] [address] [place], [address] Bilirubin [Mass/Vol] 0.31 mg/dL Normal 0.00-1.30 [facility] Comment on above: Performed By: #### L 500.4100, [id number] #### [facility] [address] [place], [address] BUN/CRE 20.4 RATIO High 10-20 [facility] Comment on above: Performed By: #### L 500.4100, [id number] #### [facility] [address] [place], [address] Calcium [Mass/Vol] 9.7 mg/dL Normal 7.6-11.0 [facility] Comment on above: Performed By: #### L 500.4100, [id number] #### [facility] [address] [place], [address] Chloride [Moles/Vol] 107 mmol/L Normal 98-108 [facility] Comment on above: Performed By: #### L 500.4100, [id number] #### [facility] [address] [place], [address] CO2 [Moles/Vol] 22.3 mmol/L Normal 21.0-32.0 [facility] Comment on above: Performed By: #### L 500.4100, [id number] #### [facility] [address] [place], [address] Creatinine [Mass/Vol] 0.92 mg/dL Normal 0.70-1.20 [facility] [place] Comment on above: Performed By: #### L 500.4100, [id number] #### [facility] [address] [place], [address] GAP 11 Normal 5-15 [facility] Comment on above: Performed By: #### L 500.4100, [id number] #### [facility] [address] [place], [address] GFR/1.73 sq M.predicted among non-blacks MDRD (S/P/Bld) [Vol rate/Area] 62 mL/min/{1.73_m2} Normal >60 [facility] Comment on above: Result Comment: mL/m in/1.73m2 CKD-EPI Creatinine Equation (2020) Performed By: #### L 500.4100, [id number] #### [facility] [address] [place], [address] Globulin (S) [Mass/Vol] 2.9 g/dL Normal 2.2-4.2 [facility] Comment on above: Performed By: #### L 500.4100, [id number] #### [facility] [address] [place], [address] Glucose [Mass/Vol] 96 mg/dL Normal 70-99 [facility] Comment on above: Performed By: #### L 500.4100, [id number] #### [facility] [address] [place], [address] Potassium [Moles/Vol] 4.3 mmol/L Normal 3.3-5.1 [facility] [place] [facility] Comment on above: Performed By: #### L 500.4100, [id number] #### [facility] [address] [place], [address] Sodium [Moles/Vol] 140 mmol/L Normal 133-145 [facility] Comment on above: Performed By: #### L 500.4100, [id number] #### [facility] [address] [place], [address] T PROT 6.9 g/dL Normal 5.9-8.4 [facility] Comment on above: Performed By: #### L 500.4100, [id number] #### [facility] [address] [place], [address] Urea nitrogen [Mass/Vol] 19 mg/dL Normal 4-19 [facility] Comment on above: Performed By: #### L 500.4100, [id number] #### [facility] [address] [place], [address] GFR/1.73 sq M.predicted kellen g non-blacks MDRD (S/P/Bld) [Vol rate/Area]Ordered By: Clyde Downing on 01-07-2025 Estimated GFR (MDRD) Non-Af Amer 62 >60 [facility] Comment on above: mL/min/1.73m2 CKD-EP I Creatinine Equation (2020) Glomerular filtration rate ( GFR) estimation/1.73 sq m using serum, plasma, or whole bOrdered By: Clyde Downing on 01-07-2025 GFR/1.73 sq M.predicted among non-blacks MDRD (S/P/Bld) [Vol rate/Area] 62 mL/min/{1.73_m2} >60 [facility] Comment on above: mL/min/1.73m2 CKD-EP I Creatinine Equation (2020) LDL calc ser/plasOrdered By: Clyde Downing on 01-07-2025 Cholesterol in LDL [Mass/Vol] 85 mg/dL [facility] Comment on above: Pqjvuusjvm=083-843 m g/dL & Higher Gkmy=862 mg/dL or greater LDL Cholesterol, Calculated 85 mg/dL [facility] Comment on above: Tnmdgbbqep=919-399 m g/dL & Higher Bbov=190 mg/dL or greater Laboratory - Chemistry and C hemistry - challengeOrdered By: Clyde Downing on 01-07-2025 AST [Catalytic activity/Vol] 19 U/L <32 [facility] Lipid Profileon 01-07-2025 CHOL:HDL 2.50 Normal [facility] Comment on above: Performed By: #### L 500.4100, [id number] #### [facility] [address] [place], [address] Cholesterol [Mass/Vol] 174 mg/dL Normal <=200 [facility] Comment on above: Result Comment: Chol esterol level, Desirable <200 mg/dL Borderline high cholesterol 200-239 mg/dL High cholesterol >=240 mg/dL Recommendations of the NCEP Adult Treatment Panel for the following risk-cutoff thresholds for the [place] population. Performed By: #### L 500.4100, L500.4050 #### [facility] [address] [place], [address] Cholesterol in HDL [Mass/Vol] 70 mg/dL Normal [facility] Comment on above: Result Comment: [place] on[place] Cholesterol Education Program (NCEP) guidelines: <40 mg/dL: Low HDL-cholesterol (major risk factor for CHD) >= 60 mg/dL: High HDL-cholesterol (negative risk factor for CHD) HDL-cholesterol is affected by a number of factors, e.g. smoking, exercise, hormones, sex and age. Performed By: #### L 500.4100, [id number] #### [facility] [address] [place], [address] Cholesterol in LDL [Mass/Vol] 85 mg/dL Normal [facility] Comment on above: Result Comment: Bord hkyceu=542-863 mg/dL Higher Rntb=324 mg/dL or greater Performed By: #### L 500.4100, [id number] #### [facility] [address] [place], [address] Cholesterol in VLDL [Mass/Vol] 19 mg/dL Normal 5-40 [facility] Comment on above: Performed By: #### L 500.4100, [id number] #### [facility] [address] [place], [address] Triglyceride [Mass/Vol] 95 mg/dL Normal [facility] Comment on above: Result Comment: The drugs N-Acetylcysteine and Metamizole may falsely depress this assay. Normal range: <150 mg/dL Borderline High: 150-199 mg/dL High: 200-499 mg/dL Very High: >500 mg/dL Performed By: #### L 500.4100, L500.4050 #### [facility] [address] [place], [address] Potassium (Unsp spec) [Mass/ Vol]Ordered By: Clyde Downing on 01-07-2025 Potassium [Moles/Vol] 4.3 mmol/L 3.3-5.1 [facility] [place] [facility] Potassium measurement (mass/ volume)Ordered By: Clyde Downing on 01-07-2025 Potassium (Unsp spec) [Mass/Vol] 4.3 mmol/L 3.3-5.1 [facility] Screening total cholesterol/ high density lipoprotein (HDL) cholesterol ratioOrdered By: Clyde Downing on 01-07-2025 Cholesterol.total/Cholester ol in HDL [Mass ratio] 2.50 {ratio} [facility] Serum creatinine measurement (mass/volume)Ordered By: Clyde Downing on 01-07-2025 Creatinine [Mass/Vol] 0.92 mg/dL 0.70-1.20 [facility] [place] [facility] Serum globulin measurementOr dered By: Clyde Downing on 01-07-2025 Globulin (S) [Mass/Vol] 2.9 g/dL 2.2-4.2 [facility] Serum glucose measurement (m ass/volume)Ordered By: Clyde Downing on 01-07-2025 Glucose [Mass/Vol] 96 mg/dL 70-99 [facility] Serum or plasma alanine barriga otransferase (ALT) measurementOrdered By: Clyde Downing on 01-07-2025 ALT [Catalytic activity/Vol] 8 U/L <35 [facility] Serum or plasma albumin willy urement (mass/volume)Ordered By: Clyde Downing on 01-07-2025 Albumin [Mass/Vol] 4.1 g/dL 3.4-4.8 [facility] Serum or plasma albumin/glob ulin mass ratioOrdered By: Clyde Downing on 01-07-2025 Albumin/Globulin [Mass ratio] 1.4 {ratio} 0.9-2.4 [facility] Serum or plasma alkaline vasile sphatase measurementOrdered By: Clyde Downing on 01-07-2025 ALP [Catalytic activity/Vol] 90 U/L 35-104 [facility] Serum or plasma calcium willy urement (mass/volume)Ordered By: Clyde Downing on 01-07-2025 Calcium [Mass/Vol] 9.7 mg/dL 7.6-11.0 [facility] Serum or plasma cholesterol in HDL measurement (mass/volume)Ordered By: Clyde Downing on 01-07-2025 Cholesterol in HDL [Mass/Vol] 70 mg/dL >40 [facility] Comment on above: National Cholesterol Education Program (NCEP) guidelines:<40 mg/dL: Low HDL-cholesterol (major risk factor for CHD)>= 60 mg/dL: High HDL-cholesterol (negative risk factor for CHD)HDL-cholesterol is affected by a number of factors, e.g. smoking, exercise, hormones, sex and age. Serum or plasma cholesterol measurement (mass/volume)Ordered By: Clyde Downing on 01-07-2025 Cholesterol [Mass/Vol] 174 mg/dL <201 [facility] Comment on above: Cholesterol level, D esirable <200 mg/dLBorderline high cholesterol 200-239 mg/dLHigh cholesterol >=240 mg/dLRecommendations of the NCEP Adult Treatment Panel for the following risk-cutoff thresholds for the [place] population. Serum or plasma urea nitroge n measurement (mass/volume)Ordered By: Clyde oDwning on 01-07-2025 Urea nitrogen [Mass/Vol] 19 mg/dL 4-19 [facility] Sodium levelOrdered By: Clyde Downing on 01-07-2025 Sodium [Moles/Vol] 140 mmol/L 133-145 [facility] Total proteinOrdered By: Cecy Downign on 01-07-2025 Protein [Mass/Vol] 6.9 g/dL 5.9-8.4 [facility] Triglycerides measurementOrd ered By: Clyde Downing on 01-07-2025 Triglyceride [Mass/Vol] 95 mg/dL <[address] [facility] Comment on above: The drugs N-Acetylcy steine and Metamizole may falsely depress this assay. Normal range: <150 mg/dLBorderline High: 150-199 mg/dLHigh: 200-499 mg/dLVery High: >500 mg/dL CBC AND ELECTRONIC DIFFon Basophils (Bld) [#/Vol] K/uL 0.00 - 0.15 K/uL [facility] Basophils/100 WBC (Bld) 0.4 % [facility] Differential cell count method Nom (Bld) Electronic Differential [facility] Eosinophils (Bld) [#/Vol] 0.09 10*3/uL 0. 00 - 0.42 K/uL [facility] Eosinophils/100 WBC (Bld) 1.2 % [facility] Erythrocyte distribution width (RBC) [Ratio] 14.8 % 10.8 - 14.9 % [facility] Hematocrit (Bld) [Volume fraction] 35.4 % 34.9 - 44.3 % [facility] Hemoglobin (Bld) [Mass/Vol] 11.9 g/dL 11.4 - 15.2 g/dL [facility] Immature granulocytes (Bld) [#/Vol] K/uL NINF - 0.08 K/uL [facility] Immature granulocytes/100 WBC (Bld) 0.3 % [facility] Lymphocytes (Bld) [#/Vol] 1.75 10*3/uL 1. 16 - 3.51 K/uL [facility] Lymphocytes/100 WBC (Bld) 22.8 % [facility] MCH (RBC) [Entitic mass] 27.5 pg 25. 9 - 33.9 pg [facility] MCHC (RBC) [Mass/Vol] 33.6 g/dL 31.4 - 35.9 g/dL [facility] MCV (RBC) [Entitic vol] 81.8 fL 79.6 - 97.7 fL [facility] Monocytes (Bld) [#/Vol] 0.62 10*3/uL 0.22 - 0.87 K/uL [facility] Monocytes/100 WBC (Bld) 8.1 % [facility] Neutrophils (Bld) [#/Vol] 5.15 10*3/uL 1. 64 - 7.28 K/uL [facility] Nucleated RBC/100 WBC (Bld) [Ratio] 0.0 % NINF [facility] Platelet mean volume (Bld) [Entitic vol] 8.8 fL 8.5 - 12.2 fL [facility] Platelets (Bld) [#/Vol] 265 10*3/uL 150 - 393 K/uL [facility] RBC (Bld) [#/Vol] 4.33 10*6/uL [facility] Segmented neutrophils/100 WBC (Bld) 67.2 % [facility] WBC (Bld) [#/Vol] 7.66 10*3/uL 3.99 - 11.19 K/uL [facility] Abs Baso Auto < Normal 0.00-0.15 [facility] Comment on above: Performed By: #### C HM7 #### [facility] (DEFAULT) [address] [place] [address] Basophils/100 WBC (Bld) 0.4 % Normal [facility] Comment on above: Performed By: #### C HM7 #### [facility] (DEFAULT) [address] [place] [address] DIFF STATUS Electronic Differential Normal [facility] Comment on above: Performed By: #### C HM7 #### [facility] (DEFAULT) [address] [place] [address] Eosinophils (Bld) [#/Vol] 0.09 10*3/uL Normal 0.00-0.4 2 [facility] Comment on above: Performed By: #### Casimiro HM7 #### [facility] (DEFAULT) [address] [address] Eosinophils/100 WBC (Bld) 1.2 % Normal [facility] Comment on above: Performed By: #### Casimiro HM7 #### [facility] (DEFAULT) [address] [place] [address] Hematocrit (Bld) [Volume fraction] 35.4 % Normal 34.9-44.3 [facility] Comment on above: Performed By: #### Casimiro HM7 #### [facility] (DEFAULT) [address] [address] Hemoglobin (Bld) [Mass/Vol] 11.9 g/dL Normal 11.4-15. 2 [facility] Comment on above: Performed By: #### Casimiro HM7 #### [facility] (DEFAULT) [address] [place] [address] Immature Grans % 0.3 % Normal [facility] Comment on above: Performed By: #### Casimiro HM7 #### [facility] (DEFAULT) [address] [address] Immature Grans Absolute < Normal <=0.08 [facility] Comment on above: Performed By: #### Casimiro HM7 #### [facility] (DEFAULT) [address] [place] [address] Lymphocytes (Bld) [#/Vol] 1.75 10*3/uL Normal 1.16-3.5 1 [facility] Comment on above: Performed By: #### Casimiro HM7 #### [facility] (DEFAULT) [address] [address] Lymphocytes/100 WBC (Bld) 22.8 % Normal [facility] Comment on above: Performed By: #### Casimiro HM7 #### [facility] (DEFAULT) [address] [place] [address] MCV (RBC) [Entitic vol] 81.8 fL Normal 79.6-97.7 [facility] Comment on above: Performed By: #### C HM7 #### [facility] (DEFAULT) [address] [place] [address] Mean Cell Hgb 27.5 pg Normal 25.9-33.9 [facility] Comment on above: Performed By: #### C HM7 #### [facility] (DEFAULT) [address] [place] [address] Mean Cell Hgb Conc 33.6 g/dL Normal 31.4-35.9 [facility] Comment on above: Performed By: #### C HM7 #### [facility] (DEFAULT) [address] [place] [address] Monocytes (Bld) [#/Vol] 0.62 10*3/uL Normal 0.22-0.87 [facility] Comment on above: Performed By: #### C HM7 #### [facility] (DEFAULT) [address] [address] Monocytes/100 WBC (Bld) 8.1 % Normal [facility] Comment on above: Performed By: #### C HM7 #### [facility] (DEFAULT) [address] [place] [address] Nucleated RBC 0.0 /100 WBC Normal <=0.2 [facility] Comment on above: Performed By: #### C HM7 #### [facility] (DEFAULT) [address] [place] [address] Platelet mean volume (Bld) [Entitic vol] 8.8 fL Normal 8.5-12.2 [facility] Comment on above: Performed By: #### C HM7 #### [facility] (DEFAULT) [address] [place] [address] Platelets (Bld) [#/Vol] 265 10*3/uL Normal 150-393 [facility] Comment on above: Performed By: #### C HM7 #### [facility] (DEFAULT) [address] [place] [address] RBC (Bld) [#/Vol] 4.33 10*6/uL Normal 3.91-5.04 [facility] Comment on above: Performed By: #### Casimiro HM7 #### [facility] (DEFAULT) [address] [place] [address] RBC Distribution 14.8 % Normal 10.8-14.9 [facility] Comment on above: Performed By: #### C HM7 #### [facility] (DEFAULT) [address] [place] [address] Segs + Bands Auto 67.2 % Normal [facility] Comment on above: Performed By: #### Casimiro HM7 #### [facility] (DEFAULT) [address] [place] [address] Segs + Bands,Absolute Auto 5.15 K/uL Normal 1.64-7.28 [facility] Comment on above: Performed By: #### Casimiro HM7 #### [facility] (DEFAULT) [address] [place] [address] WBC (Bld) [#/Vol] 7.66 10*3/uL Normal 3.99-11.19 [facility] Comment on above: Performed By: #### C HM7 #### [facility] (DEFAULT) [address] [address] CHEM 7 (LYTES,BUN,CREA,GLUC) Ordered By: Jonas Chun on 10-31-2024 Anion gap [Moles/Vol] 14 mmol/L 7 - 17 mmol/L [facility] Chloride [Moles/Vol] 104 mmol/L 98 - 10 8 mmol/L [facility] CO2 [Moles/Vol] 24 mmol/L 21 - 31 mmol/L [facility] Creatinine [Mass/Vol] 0.78 mg/dL 0.50 - 1.20 mg/dL [facility] eGFR, CKD-EPI, Female 78 - PINF [facility] Comment on above: Reported eGFR is bas ed on the CKD-EPI 2020 equation using creatinine, age, and sex. Glucose [Mass/Vol] 119 mg/dL High 70 - 99 mg/dL [facility] Interpretation and review of laboratory results Abnormal [facility] Osmolality Calc [Osmolality] 292 [facility] Potassium [Moles/Vol] 3.6 mmol/L 3.5 - 5.0 mmol/L [facility] Sodium [Moles/Vol] 138 mmol/L 135 - 145 mmol/L [facility] Urea nitrogen [Mass/Vol] 20 mg/dL 7 - 25 mg/dL [facility] Urea nitrogen/Creatinine [Mass ratio] 26 mg/mg [facility] CHEM 7 (LYTES,BUN,CREA,GLUC) on 10-31-2024 Anion gap [Moles/Vol] 14 mmol/L Normal 7-17 [facility] Comment on above: Performed By: #### L ABHSTI1 #### [facility] (DEFAULT) [address] [address] Chloride [Moles/Vol] 104 mmol/L Normal 98-108 [facility] Comment on above: Performed By: #### L ABHSTI1 #### [facility] (DEFAULT) [address] [place] [address] CO2 [Moles/Vol] 24 mmol/L Normal 21-31 [facility] Comment on above: Performed By: #### L ABHSTI1 #### [facility] (DEFAULT) [address] [address] Creatinine [Mass/Vol] 0.78 mg/dL Normal 0.50-1.20 [facility] Comment on above: Performed By: #### L ABHSTI1 #### [facility] (DEFAULT) [address] [address] GFR/1.73 sq M.predicted among non-blacks MDRD (S/P/Bld) [Vol rate/Area] 76 mL/min/{1.73_m2} Normal >=60 [facility] Comment on above: Result Comment: Repo rted eGFR is based on the CKD-EPI 2020 equation using creatinine, age, and sex. Performed By: #### L ABHSTI1 #### [facility] (DEFAULT) [address] [place] [address] Glucose [Mass/Vol] 119 mg/dL High 70-99 [facility] Comment on above: Performed By: #### L ABHSTI1 #### [facility] (DEFAULT) [address] [place] [address] Osmolality [Osmolality] 292 mosm/kg Normal 278-305 [facility] Comment on above: Performed By: #### L ABHSTI1 #### [facility] (DEFAULT) [address] [place] [address] Potassium [Moles/Vol] 3.6 mmol/L Normal 3.5-5.0 [facility] Comment on above: Performed By: #### L ABHSTI1 #### [facility] (DEFAULT) [address] [place] [address] Sodium [Moles/Vol] 138 mmol/L Normal 135-145 [facility] Comment on above: Performed By: #### L ABHSTI1 #### [facility] (DEFAULT) [address] [place] [address] Urea nitrogen [Mass/Vol] 20 mg/dL Normal 7-25 [facility] Comment on above: Performed By: #### L ABHSTI1 #### [facility] (DEFAULT) [address] [place] [address] Urea nitrogen/Creatinine [Mass ratio] 26 mg/mg Normal [facility] Comment on above: Performed By: #### L ABHSTI1 #### [facility] (DEFAULT) [address] [place] [address] CBC AND ELECTRONIC DIFFon Basophils (Bld) [#/Vol] K/uL 0.00 - 0.15 K/uL [facility] Basophils/100 WBC (Bld) 0.2 % [facility] Differential cell count method Nom (Bld) Electronic Differential [facility] Eosinophils (Bld) [#/Vol] K/uL 0. 00 - 0.42 K/uL [facility] Eosinophils/100 WBC (Bld) 0.2 % [facility] Erythrocyte distribution width (RBC) [Ratio] 14.9 % 10.8 - 14.9 % [facility] Hematocrit (Bld) [Volume fraction] 37.4 % 34.9 - 44.3 % [facility] Hemoglobin (Bld) [Mass/Vol] 12.1 g/dL 11.4 - 15.2 g/dL [facility] Immature granulocytes (Bld) [#/Vol] K/uL NINF - 0.08 K/uL [facility] Immature granulocytes/100 WBC (Bld) 0.3 % [facility] Lymphocytes (Bld) [#/Vol] 1.79 10*3/uL 1. 16 - 3.51 K/uL [facility] Lymphocytes/100 WBC (Bld) 20.1 % [facility] MCH (RBC) [Entitic mass] 27.2 pg 25. 9 - 33.9 pg [facility] MCHC (RBC) [Mass/Vol] 32.4 g/dL 31.4 - 35.9 g/dL [facility] MCV (RBC) [Entitic vol] 84.0 fL 79.6 - 97.7 fL [facility] Monocytes (Bld) [#/Vol] 0.69 10*3/uL 0.22 - 0.87 K/uL [facility] Monocytes/100 WBC (Bld) 7.8 % [facility] Neutrophils (Bld) [#/Vol] 6.35 10*3/uL 1. 64 - 7.28 K/uL [facility] Nucleated RBC/100 WBC (Bld) [Ratio] 0.0 % NINF [facility] Platelet mean volume (Bld) [Entitic vol] 8.9 fL 8.5 - 12.2 fL [facility] Platelets (Bld) [#/Vol] 231 10*3/uL 150 - 393 K/uL [facility] RBC (Bld) [#/Vol] 4.45 10*6/uL [facility] Segmented neutrophils/100 WBC (Bld) 71.4 % [facility] WBC (Bld) [#/Vol] 8.90 10*3/uL 3.99 - 11.19 K/uL [facility] Abs Baso Auto < Normal 0.00-0.15 [facility] Comment on above: Performed By: #### L [id number] #### [facility] (DEFAULT) [address] [address] Abs Eos Auto < Normal 0.00-0.42 [facility] Comment on above: Performed By: #### L [id number] #### [facility] (DEFAULT) [address] [address] Basophils/100 WBC (Bld) 0.2 % Normal [facility] Comment on above: Performed By: #### L [id number] #### [facility] (DEFAULT) [address] [address] DIFF STATUS Electronic Differential Normal [facility] Comment on above: Performed By: #### L [id number] #### [facility] (DEFAULT) [address] [address] Eosinophils/100 WBC (Bld) 0.2 % Normal [facility] Comment on above: Performed By: #### L [id number] #### [facility] (DEFAULT) [address] [address] Hematocrit (Bld) [Volume fraction] 37.4 % Normal 34.9-44.3 [facility] Comment on above: Performed By: #### L [id number] #### [facility] (DEFAULT) [address] [address] Hemoglobin (Bld) [Mass/Vol] 12.1 g/dL Normal 11.4-15. 2 [facility] Comment on above: Performed By: #### L [id number] #### [facility] (DEFAULT) [address] [address] Immature Grans % 0.3 % Normal [facility] Comment on above: Performed By: #### L [id number] #### [facility] (DEFAULT) [address] [address] Immature Grans Absolute < Normal <=0.08 [facility] Comment on above: Performed By: #### L [id number] #### [facility] (DEFAULT) [address] [address] Lymphocytes (Bld) [#/Vol] 1.79 10*3/uL Normal 1.16-3.5 1 [facility] Comment on above: Performed By: #### L [id number] #### [facility] (DEFAULT) [address] [address] Lymphocytes/100 WBC (Bld) 20.1 % Normal [facility] Comment on above: Performed By: #### L [id number] #### [facility] (DEFAULT) [address] [address] MCV (RBC) [Entitic vol] 84.0 fL Normal 79.6-97.7 [facility] Comment on above: Performed By: #### L [id number] #### [facility] (DEFAULT) [address] [address] Mean Cell Hgb 27.2 pg Normal 25.9-33.9 [facility] Comment on above: Performed By: #### L [id number] #### [facility] (DEFAULT) [address] [address] Mean Cell Hgb Conc 32.4 g/dL Normal 31.4-35.9 [facility] Comment on above: Performed By: #### L [id number] #### [facility] (DEFAULT) [address] [address] Monocytes (Bld) [#/Vol] 0.69 10*3/uL Normal 0.22-0.87 [facility] Comment on above: Performed By: #### L [id number] #### [facility] (DEFAULT) [address] [address] Monocytes/100 WBC (Bld) 7.8 % Normal [facility] Comment on above: Performed By: #### L [id number] #### [facility] (DEFAULT) [address] [address] Nucleated RBC 0.0 /100 WBC Normal <=0.2 [facility] Comment on above: Performed By: #### L [id number] #### [facility] (DEFAULT) [address] [address] Platelet mean volume (Bld) [Entitic vol] 8.9 fL Normal 8.5-12.2 [facility] Comment on above: Performed By: #### L [id number] #### [facility] (DEFAULT) [address] [address] Platelets (Bld) [#/Vol] 231 10*3/uL Normal 150-393 [facility] Comment on above: Performed By: #### L [id number] #### [facility] (DEFAULT) [address] [address] RBC (Bld) [#/Vol] 4.45 10*6/uL Normal 3.91-5.04 [facility] Comment on above: Performed By: #### L [id number] #### [facility] (DEFAULT) [address] [address] RBC Distribution 14.9 % Normal 10.8-14.9 [facility] Comment on above: Performed By: #### L [id number] #### [facility] (DEFAULT) [address] [place] [address] Segs + Bands Auto 71.4 % Normal [facility] Comment on above: Performed By: #### L [id number] #### [facility] (DEFAULT) [address] [place] [address] Segs + Bands,Absolute Auto 6.35 K/uL Normal 1.64-7.28 [facility] Comment on above: Performed By: #### L [id number] #### [facility] (DEFAULT) [address] [place] [address] WBC (Bld) [#/Vol] 8.90 10*3/uL Normal 3.99-11.19 [facility] Comment on above: Performed By: #### L [id number] #### [facility] (DEFAULT) [address] [place] [address] CHEM 7 (LYTES,BUN,CREA,GLUC) Ordered By: Zenia Wong on 10-30-2024 Anion gap [Moles/Vol] 34 mmol/L High 7 - 17 mmol/L [facility] Chloride [Moles/Vol] 96 mmol/L Low 98 - 10 8 mmol/L [facility] CO2 [Moles/Vol] 17 mmol/L Low 21 - 31 mmol/L [facility] Creatinine [Mass/Vol] 0.59 mg/dL 0.50 - 1.20 mg/dL [facility] eGFR, CKD-EPI, Female 90 - PINF [facility] Comment on above: Reported eGFR is bas ed on the CKD-EPI 2020 equation using creatinine, age, and sex. Glucose [Mass/Vol] 81 mg/dL 70 - 99 mg/dL [facility] Interpretation and review of laboratory results Abnormal [facility] Osmolality Calc [Osmolality] 297 [facility] Potassium [Moles/Vol] 3.6 mmol/L 3.5 - 5.0 mmol/L [facility] Sodium [Moles/Vol] 143 mmol/L 135 - 145 mmol/L [facility] Urea nitrogen [Mass/Vol] 14 mg/dL 7 - 25 mg/dL [facility] Urea nitrogen/Creatinine [Mass ratio] 24 mg/mg [facility] CHEM 7 (LYTES,BUN,CREA,GLUC) on 10-30-2024 Anion gap [Moles/Vol] 34 mmol/L High 7-17 [facility] Comment on above: Performed By: #### L [id number] #### [facility] (DEFAULT) [address] [place] [address] Chloride [Moles/Vol] 96 mmol/L Low 98-108 [facility] Comment on above: Performed By: #### L ABHSTI1 #### [facility] (DEFAULT) [address] [place] [address] CO2 [Moles/Vol] 17 mmol/L Low 21-31 [facility] Comment on above: Performed By: #### L ABHSTI1 #### [facility] (DEFAULT) [address] [place] [address] Creatinine [Mass/Vol] 0.59 mg/dL Normal 0.50-1.20 [facility] Comment on above: Performed By: #### L ABHSTI1 #### [facility] (DEFAULT) [address] [place] [address] GFR/1.73 sq M.predicted among non-blacks MDRD (S/P/Bld) [Vol rate/Area] 90 mL/min/{1.73_m2} Normal >=60 [facility] Comment on above: Result Comment: Repo rted eGFR is based on the CKD-EPI 2020 equation using creatinine, age, and sex. Performed By: #### L ABHSTI1 #### [facility] (DEFAULT) [address] [place] [address] Glucose [Mass/Vol] 81 mg/dL Normal 70-99 [facility] Comment on above: Performed By: #### L ABHSTI1 #### [facility] (DEFAULT) [address] [place] [address] Osmolality [Osmolality] 297 mosm/kg Normal 278-305 [facility] Comment on above: Performed By: #### L ABHSTI1 #### [facility] (DEFAULT) [address] [place] [address] Potassium [Moles/Vol] 3.6 mmol/L Normal 3.5-5.0 [facility] Comment on above: Performed By: #### L ABHSTI1 #### [facility] (DEFAULT) [address] [place] [address] Sodium [Moles/Vol] 143 mmol/L Normal 135-145 [facility] Comment on above: Performed By: #### L ABHSTI1 #### [facility] (DEFAULT) [address] [place] [address] Urea nitrogen [Mass/Vol] 14 mg/dL Normal 7-25 [facility] Comment on above: Performed By: #### L ABHSTI1 #### [facility] (DEFAULT) [address] [place] [address] Urea nitrogen/Creatinine [Mass ratio] 24 mg/mg Normal [facility] Comment on above: Performed By: #### L ABHSTI1 #### [facility] (DEFAULT) [address] [place] [address] FIBRINOGEN, CLOTTABLEon 10-04 Fibrinogen Coag (PPP) [Mass/Vol] 461 mg/dL High 220 - 410 mg/dL [facility] Comment on above: Functional Fibrinoge n (activity) levels can be affected by direct thrombin inhibitors such as heparins (>2.0 IU/ml) and dabigatran. Abnormal results should be interpreted with caution. Interpretation and review of laboratory results Abnormal [facility] Fibrinogen levels m ay be altered by the normal physiologic changes of and should be interpreted considering reference ranges specific to gestational age. First Trimester: 244-510 mg/dL Second Trimester: 291-538 mg/dL Third Trimester/: 373-619 mg/dL Reference: Denise Jaime LG, Luis Miguel GUPTA. and laboratory studies: a reference table for clinicians. Obstet Gynecol 2009; 114:1326. [facility] Fibrinogen-Clottable 461 mg/dL High 220-410 [facility] Comment on above: Order Comment: Fibr inogen levels may be altered by the normal physiologic changes of and should be interpreted considering reference ranges specific to gestational age. First Trimester: 244-510 mg/dL Second Trimester: 291-538 mg/dL Third Trimester/: 373-619 mg/dL Reference: Denise Jaime LG, Luis Miguel GUPTA. and laboratory studies: a reference table for clinicians. Obstet Gynecol 2009; 114:1326. Result Comment: Func tional Fibrinogen (activity) levels can be affected by direct thrombin inhibitors such as heparins (>2.0 IU/ml) and dabigatran. Abnormal results should be interpreted with caution. Performed By: #### F IB #### [facility] (DEFAULT) [address] [address] HEMOGLOBIN A1Con 10-30-2024 Average glucose Estimated from glycated hemoglobin (Bld) [Mass/Vol] 123 mg/dL [facility] HbA1c (Bld) [Mass fraction] 5.9 % High 4.7 - 5.6 % [facility] Interpretation and review of laboratory results Abnormal [facility] Glucose [Mass/Vol] 123 mg/dL Normal [facility] Comment on above: Performed By: #### L ABHSTI1 #### [facility] (DEFAULT) [address] [address] Hemoglobin A1C HPLC 5.9 % High 4.7-5.6 [facility] Comment on above: Performed By: #### L ABHSTI1 #### [facility] (DEFAULT) [address] [address] LIPID PANEL WITH REFLEX TO M EASURED LDLon 10-30-2024 Cholesterol [Mass/Vol] 183 mg/dL NINF - 200 mg/dL [facility] Comment on above: [<200 mg/dL: Desirab le] [200-239 mg/dL: Borderline High] [>239 mg/dL: High] Cholesterol in HDL [Mass/Vol] 51 mg/dL 40 - PINF mg/dL [facility] Comment on above: [<40 mg/dL: Low (Hig h Risk)] [>59 mg/dL: High (Low Risk)] Cholesterol in LDL [Mass/Vol] 118 mg/dL High 0 - 99 mg/dL [facility] Comment on above: [<100 mg/dL: Optimal ] [100-129 mg/dL: Near Optimal] [130-159 mg/dL: Borderline High] [160-189 mg/dL: High] [>189 mg/dL: Very High] Cholesterol non HDL [Mass/Vol] 132 mg/dL High NINF - 130 mg/dL [facility] Cholesterol.total/Cholester ol in HDL [Mass ratio] 3.6 {ratio} NINF - 4.5 [facility] Interpretation and review of laboratory results Abnormal [facility] Triglyceride [Mass/Vol] 70 mg/dL NINF - 150 mg/dL [facility] Comment on above: [<150 mg/dL: Desirab le] [150-199 mg/dL: Borderline] [200-499 mg/dL: High] [>500 mg/dL: Very High] [facility] Calculated LDL Cholesterol 118 mg/dL High 0-99 [facility] Comment on above: Result Comment: [<10 0 mg/dL: Optimal] [100-129 mg/dL: Near Optimal] [130-159 mg/dL: Borderline High] [160-189 mg/dL: High] [>189 mg/dL: Very High] Performed By: #### L ABHSTI1 #### [facility] (DEFAULT) [address] [place] [address] Cholesterol [Mass/Vol] 183 mg/dL Normal <200 [facility] Comment on above: Result Comment: [<20 0 mg/dL: Desirable] [200-239 mg/dL: Borderline High] [>239 mg/dL: High] Performed By: #### L ABHSTI1 #### [facility] (DEFAULT) [address] [place] [address] Cholesterol in HDL [Mass/Vol] 51 mg/dL Normal >=40 [facility] Comment on above: Result Comment: [<40 mg/dL: Low (High Risk)] [>59 mg/dL: High (Low Risk)] Performed By: #### L ABHSTI1 #### [facility] (DEFAULT) [address] [place] [address] Non HDL Cholesterol 132 mg/dL High <130 [facility] Comment on above: Performed By: #### L ABHSTI1 #### [facility] (DEFAULT) [address] [place] [address] Total Cholesterol/HDL Ratio 3.6 Normal <4.5 [facility] Comment on above: Performed By: #### L ABHSTI1 #### [facility] (DEFAULT) [address] [place] [address] Triglyceride [Mass/Vol] 70 mg/dL Normal <150 [facility] Comment on above: Result Comment: [<15 0 mg/dL: Desirable] [150-199 mg/dL: Borderline] [200-499 mg/dL: High] [>500 mg/dL: Very High] Performed By: #### L ABHSTI1 #### [facility] (DEFAULT) [address] [place] [address] CARDIAC RHYTHM (SCANNED)on 0 10-29-2024 [facility] CBC AND ELECTRONIC DIFFon Basophils (Bld) [#/Vol] K/uL 0.00 - 0.15 K/uL [facility] Basophils/100 WBC (Bld) 0.3 % [facility] Differential cell count method Nom (Bld) Electronic Differential [facility] Eosinophils (Bld) [#/Vol] K/uL 0. 00 - 0.42 K/uL [facility] Eosinophils/100 WBC (Bld) 0.1 % [facility] Erythrocyte distribution width (RBC) [Ratio] 14.7 % 10.8 - 14.9 % [facility] Hematocrit (Bld) [Volume fraction] 34.8 % Low 34.9 - 44.3 % [facility] Hemoglobin (Bld) [Mass/Vol] 11.4 g/dL 11.4 - 15.2 g/dL [facility] Immature granulocytes (Bld) [#/Vol] K/uL NINF - 0.08 K/uL [facility] Immature granulocytes/100 WBC (Bld) 0.3 % [facility] Interpretation and review of laboratory results Abnormal [facility] Lymphocytes (Bld) [#/Vol] 1.20 10*3/uL 1. 16 - 3.51 K/uL [facility] Lymphocytes/100 WBC (Bld) 13.7 % [facility] MCH (RBC) [Entitic mass] 27.0 pg 25. 9 - 33.9 pg [facility] MCHC (RBC) [Mass/Vol] 32.8 g/dL 31.4 - 35.9 g/dL [facility] MCV (RBC) [Entitic vol] 82.3 fL 79.6 - 97.7 fL [facility] Monocytes (Bld) [#/Vol] 0.57 10*3/uL 0.22 - 0.87 K/uL [facility] Monocytes/100 WBC (Bld) 6.5 % [facility] Neutrophils (Bld) [#/Vol] 6.91 10*3/uL 1. 64 - 7.28 K/uL [facility] Nucleated RBC/100 WBC (Bld) [Ratio] 0.0 % [facility] Platelet mean volume (Bld) [Entitic vol] 9.1 fL 8.5 - 12.2 fL [facility] Platelets (Bld) [#/Vol] 266 10*3/uL 150 - 393 K/uL [facility] RBC (Bld) [#/Vol] 4.23 10*6/uL [facility] Segmented neutrophils/100 WBC (Bld) 79.1 % [facility] WBC (Bld) [#/Vol] 8.75 10*3/uL 3.99 - 11.19 K/uL [facility] Abs Baso Auto < Normal 0.00-0.15 [facility] Comment on above: Performed By: #### L ABHSTI1 #### [facility] (DEFAULT) [address] [address] Abs Eos Auto < Normal 0.00-0.42 [facility] Comment on above: Performed By: #### L ABHSTI1 #### [facility] (DEFAULT) [address] [address] Basophils/100 WBC (Bld) 0.3 % Normal [facility] Comment on above: Performed By: #### L ABHSTI1 #### [facility] (DEFAULT) [address] [address] DIFF STATUS Electronic Differential Normal [facility] Comment on above: Performed By: #### L ABHSTI1 #### [facility] (DEFAULT) [address] [address] Eosinophils/100 WBC (Bld) 0.1 % Normal [facility] Comment on above: Performed By: #### L ABHSTI1 #### [facility] (DEFAULT) [address] [address] Hematocrit (Bld) [Volume fraction] 34.8 % Low 34.9-44.3 [facility] Comment on above: Performed By: #### L ABHSTI1 #### [facility] (DEFAULT) [address] [address] Hemoglobin (Bld) [Mass/Vol] 11.4 g/dL Normal 11.4-15. 2 [facility] Comment on above: Performed By: #### L ABHSTI1 #### [facility] (DEFAULT) [address] [address] Immature Grans % 0.3 % Normal [facility] Comment on above: Performed By: #### L ABHSTI1 #### [facility] (DEFAULT) [address] [address] Immature Grans Absolute < Normal <=0.08 [facility] Comment on above: Performed By: #### L ABHSTI1 #### [facility] (DEFAULT) [address] [address] Lymphocytes (Bld) [#/Vol] 1.20 10*3/uL Normal 1.16-3.5 1 [facility] Comment on above: Performed By: #### L ABHSTI1 #### [facility] (DEFAULT) [address] [address] Lymphocytes/100 WBC (Bld) 13.7 % Normal [facility] Comment on above: Performed By: #### L ABHSTI1 #### [facility] (DEFAULT) [address] [address] MCV (RBC) [Entitic vol] 82.3 fL Normal 79.6-97.7 [facility] Comment on above: Performed By: #### L ABHSTI1 #### [facility] (DEFAULT) [address] [address] Mean Cell Hgb 27.0 pg Normal 25.9-33.9 [facility] Comment on above: Performed By: #### L ABHSTI1 #### [facility] (DEFAULT) [address] [address] Mean Cell Hgb Conc 32.8 g/dL Normal 31.4-35.9 [facility] Comment on above: Performed By: #### L ABHSTI1 #### [facility] (DEFAULT) [address] [place] [address] Monocytes (Bld) [#/Vol] 0.57 10*3/uL Normal 0.22-0.87 [facility] Comment on above: Performed By: #### L ABHSTI1 #### [facility] (DEFAULT) [address] [place] [address] Monocytes/100 WBC (Bld) 6.5 % Normal [facility] Comment on above: Performed By: #### L ABHSTI1 #### [facility] (DEFAULT) [address] [place] [address] Nucleated RBC 0.0 /100 WBC Normal <=0.2 [facility] Comment on above: Performed By: #### L ABHSTI1 #### [facility] (DEFAULT) [address] [place] [address] Platelet mean volume (Bld) [Entitic vol] 9.1 fL Normal 8.5-12.2 [facility] Comment on above: Performed By: #### L ABHSTI1 #### [facility] (DEFAULT) [address] [place] [address] Platelets (Bld) [#/Vol] 266 10*3/uL Normal 150-393 [facility] Comment on above: Performed By: #### L ABHSTI1 #### [facility] (DEFAULT) [address] [place] [address] RBC (Bld) [#/Vol] 4.23 10*6/uL Normal 3.91-5.04 [facility] Comment on above: Performed By: #### L ABHSTI1 #### [facility] (DEFAULT) [address] [place] [address] RBC Distribution 14.7 % Normal 10.8-14.9 [facility] Comment on above: Performed By: #### L ABHSTI1 #### [facility] (DEFAULT) [address] [place] [address] Segs + Bands Auto 79.1 % Normal [facility] Comment on above: Performed By: #### L ABHSTI1 #### [facility] (DEFAULT) [address] [place] [address] Segs + Bands,Absolute Auto 6.91 K/uL Normal 1.64-7.28 [facility] Comment on above: Performed By: #### L ABHSTI1 #### [facility] (DEFAULT) [address] [place] [address] WBC (Bld) [#/Vol] 8.75 10*3/uL Normal 3.99-11.19 [facility] Comment on above: Performed By: #### L ABHSTI1 #### [facility] (DEFAULT) [address] [place] [address] CHEM 7 (LYTES,BUN,CREA,GLUC) on 10-29-2024 Anion gap [Moles/Vol] 13 mmol/L 7 - 17 mmol/L [facility] Chloride [Moles/Vol] 101 mmol/L 98 - 10 8 mmol/L [facility] CO2 [Moles/Vol] 23 mmol/L 21 - 31 mmol/L [facility] Creatinine [Mass/Vol] 0.66 mg/dL 0.50 - 1.20 mg/dL [facility] eGFR, CKD-EPI, Female 88 - PINF [facility] Comment on above: Reported eGFR is bas ed on the CKD-EPI 2020 equation using creatinine, age, and sex. Glucose [Mass/Vol] 92 mg/dL 70 - 99 mg/dL [facility] Interpretation and review of laboratory results Abnormal [facility] Osmolality Calc [Osmolality] 279 [facility] [facility] Potassium [Moles/Vol] 3.7 mmol/L 3.5 - 5.0 mmol/L [facility] Sodium [Moles/Vol] 133 mmol/L Low 135 - 145 mmol/L [facility] Urea nitrogen [Mass/Vol] 13 mg/dL 7 - 25 mg/dL [facility] Urea nitrogen/Creatinine [Mass ratio] 20 mg/mg [facility] Anion gap [Moles/Vol] 13 mmol/L Normal 7-17 [facility] Comment on above: Performed By: #### L [id number] #### [facility] (DEFAULT) [address] [place] [address] Chloride [Moles/Vol] 101 mmol/L Normal 98-108 [facility] Comment on above: Performed By: #### L [id number] #### [facility] (DEFAULT) [address] [place] [address] CO2 [Moles/Vol] 23 mmol/L Normal 21-31 [facility] Comment on above: Performed By: #### L [id number] #### [facility] (DEFAULT) [address] [place] [address] Creatinine [Mass/Vol] 0.66 mg/dL Normal 0.50-1.20 [facility] Comment on above: Performed By: #### L [id number] #### [facility] (DEFAULT) [address] [place] [address] GFR/1.73 sq M.predicted among non-blacks MDRD (S/P/Bld) [Vol rate/Area] 88 mL/min/{1.73_m2} Normal >=60 [facility] Comment on above: Result Comment: Repo rted eGFR is based on the CKD-EPI 2020 equation using creatinine, age, and sex. Performed By: #### L [id number] #### [facility] (DEFAULT) [address] [place] [address] Glucose [Mass/Vol] 92 mg/dL Normal 70-99 [facility] Comment on above: Performed By: #### L [id number] #### [facility] (DEFAULT) [address] [place] [address] Osmolality [Osmolality] 279 mosm/kg Normal 278-305 [facility] Comment on above: Performed By: #### L [id number] #### [facility] (DEFAULT) [address] [place] [address] Potassium [Moles/Vol] 3.7 mmol/L Normal 3.5-5.0 [facility] Comment on above: Performed By: #### L [id number] #### [facility] (DEFAULT) [address] [place] [address] Sodium [Moles/Vol] 133 mmol/L Low 135-145 [facility] Comment on above: Performed By: #### L [id number] #### [facility] (DEFAULT) [address] [place] [address] Urea nitrogen [Mass/Vol] 13 mg/dL Normal 7-25 [facility] Comment on above: Performed By: #### L [id number] #### [facility] (DEFAULT) [address] [place] [address] Urea nitrogen/Creatinine [Mass ratio] 20 mg/mg Normal [facility] Comment on above: Performed By: #### L [id number] #### [facility] (DEFAULT) [address] [place] [address] HEAD WITHOUT CONTRASTon 0 10-29-2024 CT HEAD WITHOUT CONTRAST EXAM: CT HEAD W ITHOUT CONTRAST, 10/29/2024 9:15 AM COMPARISON: CT head October 27, 2024. CLINICAL INDICATIONS: TNK follow-up Age: 84 years Gender: Female TECHNIQUE: A series of transaxial computed tomographic images were obtained from the base of the skull to the vertex without intravenous contrast. Axial whole-head and thin-section posterior fossa images were provided. Reformats: Sagittal and coronal. FINDINGS: Encephalomalacia involving the left lateral occipital, posterosuperior temporal, and parietal lobes, compatible with a remote infarct in the left MCA inferior division territory. Patchy hypoattenuation in the periventricular and deep white matter is nonspecific but compatible with chronic microvascular changes. There is no evidence of acute intracranial hemorrhage or acute large territory infarct. Stable asymmetric CSF-density right cerebral convexity extra-axial fluid, likely representing enlarged subarachnoid spaces. Ventricles and sulci are mildly prominent, compatible with parenchymal volume loss. There is no mass effect or midline shift. Calvaria and skull base appear intact. Visualized paranasal sinuses show no air-fluid levels. Minimal mucosal thickening in the paranasal sinuses. Visualized orbits are unremarkable. Vascular calcifications are seen along the intracranial carotid arteries. IMPRESSION: No evidence of acute intracranial hemorrhage, mass effect, or acute large territory infarct. 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 Normal [facility] CT Head WO contraston 2024 IMPRESSION: No evidence of acute intracranial hemorrhage, mass effect, or acute large territory infarct. 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 OLOGY EXAM: CT HEAD WITHOU T CONTRAST, 10/29/2024 9:15 AM COMPARISON: CT head October 27, 2024. CLINICAL INDICATIONS: TNK follow-up Age: 84 years Gender: Female TECHNIQUE: A series of transaxial computed tomographic images were obtained from the base of the skull to the vertex without intravenous contrast. Axial whole-head and thin-section posterior fossa images were provided. Reformats: Sagittal and coronal. FINDINGS: Encephalomalacia involving the left lateral occipital, posterosuperior temporal, and parietal lobes, compatible with a remote infarct in the left MCA inferior division territory. Patchy hypoattenuation in the periventricular and deep white matter is nonspecific but compatible with chronic microvascular changes. There is no evidence of acute intracranial hemorrhage or acute large territory infarct. Stable asymmetric CSF-density right cerebral convexity extra-axial fluid, likely representing enlarged subarachnoid spaces. Ventricles and sulci are mildly prominent, compatible with parenchymal volume loss. There is no mass effect or midline shift. Calvaria and skull base appear intact. Visualized paranasal sinuses show no air-fluid levels. Minimal mucosal thickening in the paranasal sinuses. Visualized orbits are unremarkable. Vascular calcifications are seen along the intracranial carotid arteries. RADIOLOGY Ophelia Cruz MD, PhD - 10/29/2024 EXAM: CT HEAD WITHOUT CONTRAST, 10/29/2024 9:15 AM COMPARISON: CT head October 27, 2024. CLINICAL INDICATIONS: TNK follow-up Age: 84 years Gender: Female TECHNIQUE: A series of transaxial computed tomographic images were obtained from the base of the skull to the vertex without intravenous contrast. Axial whole-head and thin-section posterior fossa images were provided. Reformats: Sagittal and coronal. FINDINGS: Encephalomalacia involving the left lateral occipital, posterosuperior temporal, and parietal lobes, compatible with a remote infarct in the left MCA inferior division territory. Patchy hypoattenuation in the periventricular and deep white matter is nonspecific but compatible with chronic microvascular changes. There is no evidence of acute intracranial hemorrhage or acute large territory infarct. Stable asymmetric CSF-density right cerebral convexity extra-axial fluid, likely representing enlarged subarachnoid spaces. Ventricles and sulci are mildly prominent, compatible with parenchymal volume loss. There is no mass effect or midline shift. Calvaria and skull base appear intact. Visualized paranasal sinuses show no air-fluid levels. Minimal mucosal thickening in the paranasal sinuses. Visualized orbits are unremarkable. Vascular calcifications are seen along the intracranial carotid arteries. IMPRESSION IMPRESSION: No evidence of acute intracranial hemorrhage, mass effect, or acute large territory infarct. 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 [facility] Radiology Study observation (narrative) [facility] CT Head WO contrastOrdered B y: Ophelia Jon on 10-29-2024 [facility] Work Phone: MR Brain WO contraston 10-29 IMPRESSION: No acute intracranial abnormality. No evidence of recent infarct. Unchanged large remote left MCA territory infarct. OLOGY EXAM: MRI BRAIN WITHOUT CONTRAST, 10/29/2024 21:57 PM COMPARISON: CT head 10/29/2024 and MRI brain 07/27/2024. CLINICAL INDICATIONS: 84 years Female Stroke Workup; Stroke Workup TECHNIQUE: A series of multisequence, multiplanar images of the brain are obtained without intravenous contrast. Study was performed at [address]. FINDINGS: No diffusion restriction to indicate recent infarct. Unchanged encephalomalacia and gliosis involving portions of the left frontal and parietal lobes as well as the left posterosuperior temporal and lateral occipital lobes, compatible with remote left MCA territory infarct. Additional mild scattered cerebral white matter FLAIR signal hyperintensities which are nonspecific, but compatible with chronic small vessel ischemic changes. No evidence of edema. No evidence of mass lesion. No evidence of hemorrhage. No extracerebral collection. Sellar and parasellar structures are unremarkable. Posterior fossa is unremarkable. Ventricles are stable in size and configuration with mild ex vacuo dilation of the posterior aspect of the left lateral ventricle. Paranasal sinuses and mastoid air cells are clear. Orbital contents are unremarkable. RADIOLOGY Buddy Núñez M D - 10/29/2024 EXAM: MRI BRAIN WITHOUT CONTRAST, 10/29/2024 21:57 PM COMPARISON: CT head 10/29/2024 and MRI brain 07/27/2024. CLINICAL INDICATIONS: 84 years Female Stroke Workup; Stroke Workup TECHNIQUE: A series of multisequence, multiplanar images of the brain are obtained without intravenous contrast. Study was performed at [address]. FINDINGS: No diffusion restriction to indicate recent infarct. Unchanged encephalomalacia and gliosis involving portions of the left frontal and parietal lobes as well as the left posterosuperior temporal and lateral occipital lobes, compatible with remote left MCA territory infarct. Additional mild scattered cerebral white matter FLAIR signal hyperintensities which are nonspecific, but compatible with chronic small vessel ischemic changes. No evidence of edema. No evidence of mass lesion. No evidence of hemorrhage. No extracerebral collection. Sellar and parasellar structures are unremarkable. Posterior fossa is unremarkable. Ventricles are stable in size and configuration with mild ex vacuo dilation of the posterior aspect of the left lateral ventricle. Paranasal sinuses and mastoid air cells are clear. Orbital contents are unremarkable. IMPRESSION IMPRESSION: No acute intracranial abnormality. No evidence of recent infarct. Unchanged large remote left MCA territory infarct. [facility] Radiology Study observation (narrative) [facility] MR Brain WO contrastOrdered By: Buddy Núñez on 10-29-2024 [facility] Work Phone: MRI BRAIN WITHOUT CONTRASTon 10-29-2024 MRI BRAIN WITHOUT CONTRAST EXAM: MRI BRA IN WITHOUT CONTRAST, 10/29/2024 21:57 PM COMPARISON: CT head 10/29/2024 and MRI brain 07/27/2024. CLINICAL INDICATIONS: 84 years Female Stroke Workup; Stroke Workup TECHNIQUE: A series of multisequence, multiplanar images of the brain are obtained without intravenous contrast. Study was performed at [address]. FINDINGS: No diffusion restriction to indicate recent infarct. Unchanged encephalomalacia and gliosis involving portions of the left frontal and parietal lobes as well as the left posterosuperior temporal and lateral occipital lobes, compatible with remote left MCA territory infarct. Additional mild scattered cerebral white matter FLAIR signal hyperintensities which are nonspecific, but compatible with chronic small vessel ischemic changes. No evidence of edema. No evidence of mass lesion. No evidence of hemorrhage. No extracerebral collection. Sellar and parasellar structures are unremarkable. Posterior fossa is unremarkable. Ventricles are stable in size and configuration with mild ex vacuo dilation of the posterior aspect of the left lateral ventricle. Paranasal sinuses and mastoid air cells are clear. Orbital contents are unremarkable. IMPRESSION: No acute intracranial abnormality. No evidence of recent infarct. Unchanged large remote left MCA territory infarct. Normal [facility] EXTRA MICROon 10-28-2024 [facility] GLUCOSE POCon 10-28-2024 Glucose [Mass/Vol] 105 mg/dL High 70 - 99 mg/dL [facility] Comment on above: Notified RNread back Interpretation and review of laboratory results Abnormal [facility] POC Sample Type [facility] Test performed at address of the patient encounter. [facility] MAGNESIUMon 10-28-2024 Magnesium [Mass/Vol] 2.0 mg/dL 1.6 - 2 .6 mg/dL [facility] Magnesium [Mass/Vol] 2.0 mg/dL Normal 1.6-2.6 [facility] Comment on above: Performed By: #### L [id number] #### [facility] (DEFAULT) [address] [place] [address] No Panel Informationon 10-28 Interpretation and review of laboratory results Normal [facility] PHOSPHATE, INORGANICon 10-28 Phosphate [Mass/Vol] 2.7 mg/dL 2.2 - 4 .6 mg/dL [facility] Phosphorous 2.7 mg/dL Normal 2.2-4.6 [facility] Comment on above: Performed By: #### L [id number] #### [facility] (DEFAULT) [address] [place] [address] 12 Lead EKGon 10-27-2024 12 Lead EKG [facility] [address] [place] [address] 12 Lead EKG 10/27/24 1704 MR#: [id number] Acct: [id number] Name: POONAM VELOZ Rep #: [id number] : 1940 84 From: Preston Martinez MD Attending Dr: Status: DEP ER Ordering Dr: Song Yanez DO Date: 10/27/24 Location: ED Sex: F C Admitted: Test Reason : STROKE Blood Pressure : */* mmHG Vent. Rate : 87 BPM Atrial Rate : 87 BPM P-R Int : 160 ms QRS Dur : 76 ms QT Int : 370 ms P-R-T Axes : 38 57 47 degrees QTcB Int : 445 ms Normal sinus rhythm Normal ECG Confirmed by SHEREEN LEO, YAMILETH ([id number]), metropolitan editor RICKY HIGUERA ([id number]) on 10/30/2024 6:13:44 AM Referred By: Confirmed By: YAMILETH MARTINEZ MD 10/30/24 0613 Date Preston Martinez MD CC: Dr. Clyde Downing MD; Dr. Song Yanez DO Signed Normal [facility] Absolute neutrophil countOrd ered By: Song Yanez on 10-27-2024 Neutrophils (Bld) [#/Vol] 4.3 10*3/uL 2.0-7.7 [facility] Alcohol, Blood (Medical)-Ser umon 10-27-2024 SERUM ETOH < 3.0 Normal [facility] Comment on above: Result Comment: The serum:whole blood ethanol ratio is approximately 1.14 and varies slightly with hematocrit. Medical Alcohol reference interval and critical value in non-tolerant individuals; 50 - 100 Impairment 100 Intoxication 100 - 250 Severe Poisoning 250 - 400 Deep/possible fatal coma Performed By: #### L 501.9100 #### [facility] [address] [place], [address] Basic Metabolic Profile (BMP )on 10-27-2024 BUN/CRE 28.9 RATIO High 10-20 [facility] Comment on above: Order Comment: 'TROP ' Serial specimen #1, #2 or #3: 1 Performed By: #### L 501.080 #### [facility] [address] [place], [address] CA,Total 9.2 mg/dL Normal 8.5-10.1 [facility] Comment on above: Order Comment: 'TROP ' Serial specimen #1, #2 or #3: 1 Performed By: #### L 501.080 #### [facility] [address] [place], [address] ECRCL 41.78 ml/min Normal [facility] Comment on above: Order Comment: 'TROP ' Serial specimen #1, #2 or #3: 1 Performed By: #### L 501.080 #### [facility] [address] [place], [address] EST GFR - AA 81 mL/min Normal >60 [facility] Comment on above: Order Comment: 'TROP ' Serial specimen #1, #2 or #3: 1 Result Comment: Afri can Peruvian GFR Calc Performed By: #### L 501.080 #### [facility] [address] [place], [address] GAP 7 Normal 5-15 [facility] Comment on above: Order Comment: 'TROP ' Serial specimen #1, #2 or #3: 1 Performed By: #### L 501.080 #### [facility] [address] [place], [address] GFR/1.73 sq M.predicted among non-blacks MDRD (S/P/Bld) [Vol rate/Area] 67 mL/min/{1.73_m2} Normal >60 [facility] Comment on above: Order Comment: 'TROP ' Serial specimen #1, #2 or #3: 1 Result Comment: Non- GFR Calc Performed By: #### L 501.080 #### [facility] [address] [facility] [place], [address] Basophil percentageOrdered B y: Song Yanez on 10-27-2024 Basophils/100 WBC (Bld) 0.3 % 0-[address] [facility] Bedside Glucoseon 10-27-2024 [place] GLU 93 mg/dL Normal 74-106 [facility] Comment on above: Result Comment: [place] OF PATIENT CARE PER NURSING PROTOCOL Performed By: #### L 501.080 #### [facility] [address] [facility] [address] [place], [place], [id number] Bilirubin Test strip Ql (U)O rdered By: Song Yanez on 10-27-2024 Bilirubin Ql (U) Negative Negative [facility] Blood urea nitrogen (BUN)/cr eatinine ratioOrdered By: Song Yanez on 10-27-2024 Urea nitrogen/Creatinine [Mass ratio] 28.9 mg/mg High 10-20 [facility] Brain/Head without Contrasto n 10-27-2024 Brain/Head without Contrast [facility] Services [address] [place], [place] [id number] Brain/Head without Contrast MR#: [id number] Acct: [id number] Name: POONAM VELOZ Rep #: [id number] : 1940 F 84 From: Jeet Schwab PCP: Dr. Clyde Downing MD Status: DEP ER Study: Brain/Head without Contrast Date of Exam: 10/04 02/24 Exam# [id number] Ordering Dr: Song Yanez DO [id number] STUDY: CT BRAIN WITHOUT CONTRAST REASON FOR EXAM: Female, 84 years old. post TNK, neuro change. CONTRAST SCAN AT 1611 TODAY. PRIOR CVA RADIATION DOSAGE (If Supplied By Facility): CTDIvol = ( 44.99 ) mGy, DLP = ( 1190.08 ) mGycm TECHNIQUE: Transaxial CT imaging of the brain was performed without administration of intravenous contrast material. Individualized dose optimization techniques were used for this CT. The protocol utilizes one or more of the following dose reduction techniques: automated exposure control, adjustment of mA and/or kV according to patient size,and/or use of iterative reconstruction technique. COMPARISON: 4:09 PM today FINDINGS: Normal soft tissue structures. Normal calvarium. There is mild cerebral atrophy with widening of the extra-axial spaces and ventricular dilatation. There are areas of decreased attenuation within the white matter tracts of the supratentorial brain, consistent with microvascular disease changes. Normal basal ganglia and thalami. Normal brainstem. Normal cerebellum. There is no intracranial hemorrhage. 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 Normal visualized paranasal sinuses. CT/Brain/Head without Contrast IMPRESSION: Remote infarct left MCA distribution. No hemorrhage. Electronically Signed: Jeet Fischer MD at 20:23 EST , CC: Dr. Clyde Downing MD; Dr. Song Yanez DO Formulator Compounder: Signed Normal [facility] CBC AND ELECTRONIC DIFFon Basophils (Bld) [#/Vol] K/uL 0.00 - 0.15 K/uL [facility] Basophils/100 WBC (Bld) 0.3 % [facility] Differential cell count method Nom (Bld) Electronic Differential [facility] Eosinophils (Bld) [#/Vol] K/uL 0. 00 - 0.42 K/uL [facility] Eosinophils/100 WBC (Bld) 0.1 % [facility] Erythrocyte distribution width (RBC) [Ratio] 15.0 % High 10.8 - 14.9 % [facility] Hematocrit (Bld) [Volume fraction] 35.8 % 34.9 - 44.3 % [facility] Hemoglobin (Bld) [Mass/Vol] 11.7 g/dL 11.4 - 15.2 g/dL [facility] Immature granulocytes (Bld) [#/Vol] K/uL NINF - 0.08 K/uL [facility] Immature granulocytes/100 WBC (Bld) 0.4 % [facility] Interpretation and review of laboratory results Abnormal [facility] Lymphocytes (Bld) [#/Vol] 1.37 10*3/uL 1. 16 - 3.51 K/uL [facility] Lymphocytes/100 WBC (Bld) 17.3 % [facility] MCH (RBC) [Entitic mass] 26.8 pg 25. 9 - 33.9 pg [facility] MCHC (RBC) [Mass/Vol] 32.7 g/dL 31.4 - 35.9 g/dL [facility] MCV (RBC) [Entitic vol] 81.9 fL 79.6 - 97.7 fL [facility] Monocytes (Bld) [#/Vol] 0.34 10*3/uL 0.22 - 0.87 K/uL [facility] Monocytes/100 WBC (Bld) 4.3 % [facility] Neutrophils (Bld) [#/Vol] 6.15 10*3/uL 1. 64 - 7.28 K/uL [facility] Nucleated RBC/100 WBC (Bld) [Ratio] 0.0 % NINF [facility] Platelet mean volume (Bld) [Entitic vol] 8.9 fL 8.5 - 12.2 fL [facility] Platelets (Bld) [#/Vol] 278 10*3/uL 150 - 393 K/uL [facility] RBC (Bld) [#/Vol] 4.37 10*6/uL [facility] Segmented neutrophils/100 WBC (Bld) 77.6 % [facility] WBC (Bld) [#/Vol] 7.92 10*3/uL 3.99 - 11.19 K/uL [facility] Abs Baso Auto < Normal 0.00-0.15 [facility] Comment on above: Performed By: #### L [id number] #### [facility] (DEFAULT) [address] [address] Abs Eos Auto < Normal 0.00-0.42 [facility] Comment on above: Performed By: #### L [id number] #### [facility] (DEFAULT) [address] [place] [address] Basophils/100 WBC (Bld) 0.3 % Normal [facility] Comment on above: Performed By: #### L [id number] #### [facility] (DEFAULT) [address] [place] [address] DIFF STATUS Electronic Differential Normal [facility] Comment on above: Performed By: #### L [id number] #### [facility] (DEFAULT) [address] [address] Eosinophils/100 WBC (Bld) 0.1 % Normal [facility] Comment on above: Performed By: #### L [id number] #### [facility] (DEFAULT) [address] [address] Hematocrit (Bld) [Volume fraction] 35.8 % Normal 34.9-44.3 [facility] Comment on above: Performed By: #### L [id number] #### [facility] (DEFAULT) [address] [place] [address] Hemoglobin (Bld) [Mass/Vol] 11.7 g/dL Normal 11.4-15. 2 [facility] Comment on above: Performed By: #### L [id number] #### [facility] (DEFAULT) [address] [place] [address] Immature Grans % 0.4 % Normal [facility] Comment on above: Performed By: #### L [id number] #### [facility] (DEFAULT) [address] [place] [address] Immature Grans Absolute < Normal <=0.08 [facility] Comment on above: Performed By: #### L [id number] #### [facility] (DEFAULT) [address] [place] [address] Lymphocytes (Bld) [#/Vol] 1.37 10*3/uL Normal 1.16-3.5 1 [facility] Comment on above: Performed By: #### L [id number] #### [facility] (DEFAULT) [address] [address] Lymphocytes/100 WBC (Bld) 17.3 % Normal [facility] Comment on above: Performed By: #### L [id number] #### [facility] (DEFAULT) [address] [place] [address] MCV (RBC) [Entitic vol] 81.9 fL Normal 79.6-97.7 [facility] Comment on above: Performed By: #### L [id number] #### [facility] (DEFAULT) [address] [place] [address] Mean Cell Hgb 26.8 pg Normal 25.9-33.9 [facility] Comment on above: Performed By: #### L [id number] #### [facility] (DEFAULT) [address] [place] [address] Mean Cell Hgb Conc 32.7 g/dL Normal 31.4-35.9 [facility] Comment on above: Performed By: #### L [id number] #### [facility] (DEFAULT) [address] [place] [address] Monocytes (Bld) [#/Vol] 0.34 10*3/uL Normal 0.22-0.87 [facility] Comment on above: Performed By: #### L [id number] #### [facility] (DEFAULT) [address] [place] [address]018 Monocytes/100 WBC (Bld) 4.3 % Normal [facility] Comment on above: Performed By: #### L [id number] #### [facility] (DEFAULT) [address] [address] Nucleated RBC 0.0 /100 WBC Normal <=0.2 [facility] Comment on above: Performed By: #### L [id number] #### [facility] (DEFAULT) [address] [place] [address] Platelet mean volume (Bld) [Entitic vol] 8.9 fL Normal 8.5-12.2 [facility] Comment on above: Performed By: #### L [id number] #### [facility] (DEFAULT) [address] [address] Platelets (Bld) [#/Vol] 278 10*3/uL Normal 150-393 [facility] Comment on above: Performed By: #### L [id number] #### [facility] (DEFAULT) [address] [address] RBC (Bld) [#/Vol] 4.37 10*6/uL Normal 3.91-5.04 [facility] Comment on above: Performed By: #### L [id number] #### [facility] (DEFAULT) [address] [address] RBC Distribution 15.0 % High 10.8-14.9 [facility] Comment on above: Performed By: #### L [id number] #### [facility] (DEFAULT) [address] [place] [address] Segs + Bands Auto 77.6 % Normal [facility] Comment on above: Performed By: #### L [id number] #### [facility] (DEFAULT) [address] [place] [address] Segs + Bands,Absolute Auto 6.15 K/uL Normal 1.64-7.28 [facility] Comment on above: Performed By: #### L [id number] #### [facility] (DEFAULT) [address] [place] [address] WBC (Bld) [#/Vol] 7.92 10*3/uL Normal 3.99-11.19 [facility] Comment on above: Performed By: #### L [id number] #### [facility] (DEFAULT) [address] [place] [address] CBC W/Diff, Automatedon 10-04 Absolute Lymph 2.01 X10 3/uL Normal 0.83-4.51 [facility] Comment on above: Performed By: #### L 501.080 #### [facility] [address] [place], [address] Absolute Neut 4.3 X10 3/uL Normal 2.0-7.7 [facility] Comment on above: Performed By: #### L 501.080 #### [facility] [address] [place], [address] Basophils/100 WBC (Bld) 0.3 % Normal 0-[address] [facility] Comment on above: Performed By: #### L 501.080 #### [facility] [address] [place], [address] Eosinophils/100 WBC (Bld) 1.1 % Normal 0-5 [facility] Comment on above: Performed By: #### L 501.080 #### [facility] [address] [place], [address] Erythrocyte distribution width (RBC) [Ratio] 15.0 % High 11.6-14.6 [facility] Comment on above: Performed By: #### L 501.080 #### [facility] [address] [place], [address] Hematocrit (Bld) [Volume fraction] 34.5 % Low 37-47 [facility] Comment on above: Performed By: #### L 501.080 #### [facility] [address] [place], [address] Hemoglobin (Bld) [Mass/Vol] 11.3 g/dL Low 12.0-15. 0 [facility] Comment on above: Performed By: #### L 501.080 #### [facility] [address] [place], [address] IG% 0.300 Normal 0.0-0.9 [facility] Comment on above: Result Comment: IG% - Immature Granulocytes (promyelocytes, myelocytes and metamyelocytes) > 1% indicates that a LEFT SHIFT is Present. Performed By: #### L 501.080 #### [facility] [address] [place], [address] Lymphocytes/100 WBC (Bld) 28.7 % Normal 19-41 [facility] Comment on above: Performed By: #### L 501.080 #### [facility] [address] [place], [address] MCH (RBC) [Entitic mass] 27.3 pg Normal 27.0-32.0 [facility] Comment on above: Performed By: #### L 501.080 #### [facility] [address] [place], [address] MCHC (RBC) [Mass/Vol] 32.8 g/dL Normal 32-36 [facility] [place] Comment on above: Performed By: #### L [id number] #### [facility] [address] [place], [address] MCV (RBC) [Entitic vol] 83.3 fL Normal 81-[address] [facility] Comment on above: Performed By: #### L [id number] #### [facility] [address] [place], [address] Monocytes/100 WBC (Bld) 8.4 % Normal 0-10 [facility] Comment on above: Performed By: #### L 501.080 #### [facility] [address] [place], [address] Neutrophils/100 WBC (Bld) 61.2 % Normal 47-70 [facility] Comment on above: Performed By: #### L 501.080 #### [facility] [address] [place], [address] Nucleated RBC (Bld) [#/Vol] 0 10*3/uL Normal 0-5 [facility] Comment on above: Performed By: #### L 501.080 #### [facility] [address] [place], [address] Platelet mean volume (Bld) [Entitic vol] 9.1 fL Normal 6.2-12.0 [facility] Comment on above: Performed By: #### L 501.080 #### [place] [facility] [address] [place], [address] Platelets (Bld) [#/Vol] 279 10*3/uL Normal 150-450 [facility] Comment on above: Performed By: #### L 501.080 #### [facility] [address] [place], [address] RBC (Bld) [#/Vol] 4.14 10*6/uL Low 4.2-5.4 [facility] Comment on above: Performed By: #### L 501.080 #### [facility] [address] [place], [place], [address] RDW SD 45.5 fl High 35.1-43.9 [facility] Comment on above: Performed By: #### L 501.080 #### [facility] [address] [place], [place], [address] WBC (Bld) [#/Vol] 7.0 10*3/uL Normal 4.4-11.0 [facility] Comment on above: Performed By: #### L 501.080 #### [facility] [address] [place], [address] CHM 7 - EDon 10-27-2024 Anion gap [Moles/Vol] 12 mmol/L 7 - 17 mmol/L [facility] Chloride [Moles/Vol] 103 mmol/L 98 - 10 8 mmol/L [facility] CO2 [Moles/Vol] 26 mmol/L 21 - 31 mmol/L [facility] Creatinine [Mass/Vol] 0.81 mg/dL 0.50 - 1.20 mg/dL [facility] eGFR, CKD-EPI, Female 74 - PINF [facility] Comment on above: Reported eGFR is bas ed on the CKD-EPI 2020 equation using creatinine, age, and sex. Glucose [Mass/Vol] 100 mg/dL High 70 - 99 mg/dL [facility] Interpretation and review of laboratory results Abnormal [facility] Osmolality Calc [Osmolality] 290 [facility] Potassium [Moles/Vol] 4.1 mmol/L 3.5 - 5.0 mmol/L [facility] Sodium [Moles/Vol] 137 mmol/L 135 - 145 mmol/L [facility] Urea nitrogen [Mass/Vol] 21 mg/dL 7 - 25 mg/dL [facility] Urea nitrogen/Creatinine [Mass ratio] 26 mg/mg [facility] Anion gap [Moles/Vol] 12 mmol/L Normal 7-17 [facility] Comment on above: Performed By: #### C HM7 #### [facility] (DEFAULT) [address] [place] [address] Chloride [Moles/Vol] 103 mmol/L Normal 98-108 [facility] Comment on above: Performed By: #### C HM7 #### [facility] (DEFAULT) [address] [place] [address] CO2 [Moles/Vol] 26 mmol/L Normal 21-31 [facility] Comment on above: Performed By: #### C HM7 #### [facility] (DEFAULT) [address] [place] [address] Creatinine [Mass/Vol] 0.81 mg/dL Normal 0.50-1.20 [facility] Comment on above: Performed By: #### C HM7 #### [facility] (DEFAULT) [address] [place] [address] GFR/1.73 sq M.predicted among non-blacks MDRD (S/P/Bld) [Vol rate/Area] 72 mL/min/{1.73_m2} Normal >=60 [facility] Comment on above: Result Comment: Repo rted eGFR is based on the CKD-EPI 2020 equation using creatinine, age, and sex. Performed By: #### C HM7 #### [facility] (DEFAULT) [address] [place] [address] Glucose [Mass/Vol] 100 mg/dL High 70-99 [facility] Comment on above: Performed By: #### C HM7 #### [facility] (DEFAULT) [address] [place] [address] Osmolality [Osmolality] 290 mosm/kg Normal 278-305 [facility] Comment on above: Performed By: #### C HM7 #### [facility] (DEFAULT) [address] [place] [address] Potassium [Moles/Vol] 4.1 mmol/L Normal 3.5-5.0 [facility] Comment on above: Performed By: #### C HM7 #### [facility] (DEFAULT) [address] [place] [address] Sodium [Moles/Vol] 137 mmol/L Normal 135-145 [facility] Comment on above: Performed By: #### C HM7 #### [facility] (DEFAULT) [address] [place] [address] Urea nitrogen [Mass/Vol] 21 mg/dL Normal 7-25 [facility] Comment on above: Performed By: #### C HM7 #### [facility] (DEFAULT) [address] [place] [address] Urea nitrogen/Creatinine [Mass ratio] 26 mg/mg Normal [facility] Comment on above: Performed By: #### C HM7 #### [facility] (DEFAULT) [address] [place] [address] CT Head limitedon 10-27-2024 IMPRESSION: 1. No acute intracranial finding. 2. Remote left MCA territory infarct. Findings were discussed with Mariano Landaverde MD on 10/27/2024 9:14 PM. I personally viewed and interpreted these images and I have reviewed and approved this report. OLOGY EXAM: CT STROKE HEAD-STROKE ALERT ONLY, 10/27/2024 9:10 PM COMPARISON: CT HEAD WITHOUT CONTRAST July 27, 2024, MRI BRAIN WITHOUT CONTRAST July 27, 2024 CLINICAL INDICATIONS: 84 years Female Suspected Stroke; Suspected Stroke TECHNIQUE: A series of transaxial computerized tomographic images are obtained from base of skull to vertex without intravenous contrast. Axial whole-head and thin section posterior fossa slices are provided. Reformats: Sagittal and coronal. FINDINGS: Encephalomalacia involving the left frontal and parietal lobes compatible with remote infarct. Miller-white matter differentiation is otherwise preserved. No acute large territory infarction is seen. Patchy periventricular white matter hypoattenuation is noted which is non-specific, but likely due to chronic small vessel ischemic changes. No acute intracranial hemorrhage is seen. No significant mass effect or midline shift. Ventricles and sulci are enlarged, compatible with brain parenchymal volume loss. Skull appears intact. Visualized orbits appear normal. Visualized paranasal sinuses are clear. Visualized mastoid air cells are clear. Atherosclerotic calcifications of the major arteries at the skull base are noted. RADIOLOGY Quique Hastings MD - 10/27/2024 EXAM: CT STROKE HEAD-STROKE ALERT ONLY, 10/27/2024 9:10 PM COMPARISON: CT HEAD WITHOUT CONTRAST July 27, 2024, MRI BRAIN WITHOUT CONTRAST July 27, 2024 CLINICAL INDICATIONS: 84 years Female Suspected Stroke; Suspected Stroke TECHNIQUE: A series of transaxial computerized tomographic images are obtained from base of skull to vertex without intravenous contrast. Axial whole-head and thin section posterior fossa slices are provided. Reformats: Sagittal and coronal. FINDINGS: Encephalomalacia involving the left frontal and parietal lobes compatible with remote infarct. Miller-white matter differentiation is otherwise preserved. No acute large territory infarction is seen. Patchy periventricular white matter hypoattenuation is noted which is non-specific, but likely due to chronic small vessel ischemic changes. No acute intracranial hemorrhage is seen. No significant mass effect or midline shift. Ventricles and sulci are enlarged, compatible with brain parenchymal volume loss. Skull appears intact. Visualized orbits appear normal. Visualized paranasal sinuses are clear. Visualized mastoid air cells are clear. Atherosclerotic calcifications of the major arteries at the skull base are noted. IMPRESSION IMPRESSION: 1. No acute intracranial finding. 2. Remote left MCA territory infarct. Findings were discussed with Mariano Landaverde MD on 10/27/2024 9:14 PM. I personally viewed and interpreted these images and I have reviewed and approved this report. [facility] Radiology Study observation (narrative) [facility] CT Head limitedOrdered By: Susie Hastings on 10-27-[address] [facility] [address] STROKE HEAD-STROKE ALERT ONLYon 10-27-2024 CT STROKE HEAD-STROKE ALERT ONLY EXAM: CT STROKE HEAD-STROKE ALERT ONLY, 10/27/2024 9:10 PM COMPARISON: CT HEAD WITHOUT CONTRAST July 27, 2024, MRI BRAIN WITHOUT CONTRAST July 27, 2024 CLINICAL INDICATIONS: 84 years Female Suspected Stroke; Suspected Stroke TECHNIQUE: A series of transaxial computerized tomographic images are obtained from base of skull to vertex without intravenous contrast. Axial whole-head and thin section posterior fossa slices are provided. Reformats: Sagittal and coronal. FINDINGS: Encephalomalacia involving the left frontal and parietal lobes compatible with remote infarct. Miller-white matter differentiation is otherwise preserved. No acute large territory infarction is seen. Patchy periventricular white matter hypoattenuation is noted which is non-specific, but likely due to chronic small vessel ischemic changes. No acute intracranial hemorrhage is seen. No significant mass effect or midline shift. Ventricles and sulci are enlarged, compatible with brain parenchymal volume loss. Skull appears intact. Visualized orbits appear normal. Visualized paranasal sinuses are clear. Visualized mastoid air cells are clear. Atherosclerotic calcifications of the major arteries at the skull base are noted. IMPRESSION: 1. No acute intracranial finding. 2. Remote left MCA territory infarct. Findings were discussed with Mariano Landaverde MD on 10/27/2024 9:14 PM. I personally viewed and interpreted these images and I have reviewed and approved this report. Normal [facility] Carbon dioxide measurementOr dered By: Song Yanez on 10-27-2024 CO2 [Moles/Vol] 26.0 mmol/L Normal 21.0-32.0 [facility] Comment on above: Order Comment: 'TROP ' Serial specimen #1, #2 or #3: 1 Performed By: #### L 501.080 #### [facility] [address] [facility] [place], [place], [address] Chest 1 Viewon 10-27-2024 Chest 1 View [facility] Imaging Services [address] [place], [place] [address] Chest 1 View MR#: [id number] Acct: [id number] Name: POONAM VELOZ Rep #: [id number] : 1940 F 84 From: Jeet Schwab PCP: Dr. Clyde Downing MD Status: DEP ER Study: Chest 1 View Date of Exam: 10/27/24 Exam# [id number] Ordering Dr: Song Yanez DO [id number] STUDY: X-RAY CHEST REASON FOR EXAM: Female, 84 years old. Neuro deficit, acute, stroke suspected TECHNIQUE: Single frontal view of the chest. COMPARISON: July 27 2024 FINDINGS: The lungs are clear and expanded. There is no demonstrated pleural abnormality. Normal size heart. Normal mediastinum and chintan. Normal visualized pulmonary arteries. Normal visualized aortic arch and descending thoracic aorta. Normal visualized thoracic spine. There is degenerative osteoarthritis of the bilateral shoulders. There is no demonstrated abnormality of the visualized soft tissue structures of the upper abdomen. RAD/Chest 1 View IMPRESSION: Normal x-ray examination of the chest. Electronically Signed: Jeet Fischer MD at 20:28 [facility] , CC: Dr. Clyde Downing MD; Dr. Song Yanez DO Formulator Compounder: Signed Normal [facility] Chloride measurementOrdered By: Song Yanez on 10-27-2024 Chloride [Moles/Vol] 103 mmol/L Normal 98-107 [facility] Comment on above: Order Comment: 'TROP ' Serial specimen #1, #2 or #3: 1 Performed By: #### L 501.080 #### [facility] [address] [facility] [place], [address] Emergency Department Summary on 10-27-2024 Emergency Department Summary [facility] Medical Records Department [address] [place] [address] Emergency Department Summary 10/27/24 MR#: [id number] Acct: [id number] Name: POONAM VELOZ Rep #: [id number] : 1940 84 From: Song Yanez DO PCP: Dr. Clyde Downing MD Status:DEP ER Location: ED HPI History of Present Illness Chief Complaint: [facility] Medical History DDD (degenerative disc disease), lumbar TMJ (temporomandibular joint syndrome) Hypertension Migraines Glaucoma Arthritis Environmental allergies Home Medications ???Medication ???Instructions ???Recorded ???Last Taken ???Type hydrochlorothiazide 12.5 mg capsule 12.5 mg PO DAILY 02/07/24 10/27/24 History losartan 50 mg tablet 50 mg PO DAILY 02/07/24 10/27/24 History aspirin 81 mg chewable tablet 81 mg PO BREAKFAST 30 days #30 tabs 02/08/24 10/27/24 Rx levetiracetam 500 mg tablet 500 mg PO BID 10/27/24 10/27/24 History pitavastatin calcium 1 mg tablet 1 mg PO DAILY 10/27/24 10/27/24 History sertraline 100 mg tablet 100 mg PO DAILY 10/27/24 10/27/24 History Allergy/AdvReac Type Severity Reaction Status Date / Time No Known Allergies Allergy Verified 10/27/24 16:16 Family History Other CVA (cerebral vascular accident) Surgical History S/P appendectomy Social History Smoking Status: Unknown if ever smoked alcohol intake: never substance use type: does not use what type of physical activity do you participate in: walking and aerobics frequency: 3-4 times per week EXAM Physical Exam Const Vital Signs: 10/27/24 16:05 10/27/24 16:26 10/27/24 16:30 Temperature 98.6 F Temperature Source Oral Pulse Rate 89 80 Respiratory Rate 16 16 Blood Pressure 132/111 H Blood Pressure Mean 118 Blood Pressure Source Blood Pressure Position Blood Pressure Location Pulse Ox 99 100 Oxygen Delivery Method Room Air Room Air Room Air 10/27/24 16:45 10/27/24 16:55 10/27/24 17:00 Temperature Temperature Source Pulse Rate 85 89 Respiratory Rate 24 H 31 H Blood Pressure 137/82 H 137/82 H 148/78 H Blood Pressure Mean 100 101 Blood Pressure Source Monitor Blood Pressure Position Semi-Fowlers Blood Pressure Location Left Arm Pulse Ox 100 99 Oxygen Delivery Method Room Air 10/27/24 17:15 10/27/24 17:30 10/27/24 17:45 Temperature Temperature Source Pulse Rate 82 113 H 100 Respiratory Rate 18 31 H 26 H Blood Pressure 161/79 H 174/74 H 156/81 H Blood Pressure Mean 91 107 106 Blood Pressure Source Monitor Monitor Monitor Blood Pressure Position Semi-Fowlers Blood Pressure Location Left Arm Pulse Ox 100 96 98 Oxygen Delivery Method Room Air Room Air 10/27/24 18:00 10/27/24 18:15 10/27/24 18:30 Temperature Temperature Source Pulse Rate 95 92 89 Respiratory Rate 29 H 36 H 30 H Blood Pressure 166/84 H 160/70 H 113/71 Blood Pressure Mean 111 100 84 Blood Pressure Source Manual Manual Monitor Blood Pressure Position Blood Pressure Location Pulse Ox 97 96 91 Oxygen Delivery Method Room Air Room Air Room Air 10/27/24 18:45 10/27/24 18:45 10/27/24 19:00 Temperature 98.8 F Temperature Source Pulse Rate 86 84 Respiratory Rate 17 13 Blood Pressure 128/67 H 135/69 H Blood Pressure Mean 85 90 Blood Pressure Source Monitor Monitor Blood Pressure Position Semi-Fowlers Semi-Fowlers Blood Pressure Location Right Arm Right Arm Pulse Ox 95 97 Oxygen Delivery Method Room Air Room Air 10/27/24 19:30 Temperature 97.2 F L Temperature Source Temporal Pulse Rate 82 Respiratory Rate 14 Blood Pressure 110/60 Blood Pressure Mean 76 Blood Pressure Source Monitor Blood Pressure Position Supine Blood Pressure Location Right Arm Pulse Ox 98 Oxygen Delivery Method Room Air [facility] Narrative Medical decision making narrative: HISTORY OF PRESENT ILLNESS: 84-year-old female presents concern for acute CVA. Per EMS last known well was 3 PM on 10/27/2024. There is no report of blood thinners. The patient has difficult time providing history as she is speech difficulties. REVIEW OF SYSTEMS: Pertinent positives: Confusion, slurred speech Pertinent negatives: Unable to provide reliable hearing system as patient had change in mental status PHYSICAL EXAM: Nursing triage notes reviewed, Vital signs reviewed Constitutional: please see mdm HENT: MMM Eyes: Pupils equal round and reactive to light, Extraocular muscles intact Neck: No stridor, no JVD, (more content not included)... Normal [facility] Eosinophil percentageOrdered By: Song Yanez on 10-27-2024 Eosinophils/100 WBC (Bld) 1.1 % 0-5 [facility] Epithelial cells.squamous LM Ql (Urine sed)Ordered By: Song Yaenz on 10-27-2024 Epithelial cells.squamous LM.HPF (Urine sed) [#/Area] 0 /[HPF] 5-10 [facility] Erythrocyte distribution wid th (RBC) [Ratio]Ordered By: Song Yanez on 10-27-2024 Erythrocyte distribution width (RBC) [Entitic vol] 45.5 fL High 35.1-43.9 [facility] Erythrocyte distribution wid th ratioOrdered By: Song Yanez on 10-27-2024 Erythrocyte distribution width (RBC) [Ratio] 15.0 % High 11.6-14.6 [facility] Estimated glomerular filtrat ion rate (GFR) AmericanOrdered By: Song Yanez on 10-27-2024 Estimated GFR (MDRD) Amer 81 mL/min >60 [facility] Comment on above: GFR Calc Estimation of creatinine shira aranceOrdered By: Song Yanez on 10-27-2024 Estimated Creatinine Clearance Calc 41.78 ml/min [facility] FIBRINOGEN, CLOTTABLEon 10-04 Fibrinogen Coag (PPP) [Mass/Vol] 433 mg/dL High 220 - 410 mg/dL [facility] Comment on above: Functional Fibrinoge n (activity) levels can be affected by direct thrombin inhibitors such as heparins (>2.0 IU/ml) and dabigatran. Abnormal results should be interpreted with caution. Interpretation and review of laboratory results Abnormal [facility] Fibrinogen levels m ay be altered by the normal physiologic changes of and should be interpreted considering reference ranges specific to gestational age. First Trimester: 244-510 mg/dL Second Trimester: 291-538 mg/dL Third Trimester/: 373-619 mg/dL Reference: Rahel M, Denise LG, Luis Miguel FG. and laboratory studies: a reference table for clinicians. Obstet Gynecol 2009; 114:1326. [facility] Fibrinogen-Clottable 433 mg/dL High 220-410 [facility] Comment on above: Order Comment: Acute Coronary Syndrome (ACS): Initial Evaluation and Management: [email or web address] Result Comment: Func tional Fibrinogen (activity) levels can be affected by direct thrombin inhibitors such as heparins (>2.0 IU/ml) and dabigatran. Abnormal results should be interpreted with caution. Performed By: #### L [id number] #### [facility] (DEFAULT) [address] [place] [address] Glomerular filtration rate ( GFR) estimationOrdered By: Song Yanez on 10-27-2024 Estimated GFR (MDRD) Non-Af Amer 67 mL/min >60 [facility] Comment on above: Non- GFR Calc Glucose Ql (U)Ordered By: Obdulia Yanez on 10-27-2024 Urine Glucose (UA) Normal mg/dl Normal [facility] Glucose measurementOrdered B y: Song Yanez on 10-27-2024 Glucose [Mass/Vol] 98 mg/dL Normal 74-106 [facility] Comment on above: Order Comment: 'TROP ' Serial specimen #1, #2 or #3: 1 Performed By: #### L 501.080 #### [facility] [address] [place] [address]. [place], [address] Glucose measurement at [facility] deOrdered By: Song Yanez on 10-27-2024 Bedside Glucose (Misc Panel) 93 mg/dL 74-106 [facility] Comment on above: MANAGEMENT OF PATIEN T CARE PER NURSING PROTOCOL HEPATIC FUNCTION PANELon Albumin [Mass/Vol] 3.9 g/dL 3.5 - 5.0 g/dL [facility] ALP [Catalytic activity/Vol] 87 U/L 32 - 126 U/L [facility] ALT [Catalytic activity/Vol] 11 U/L 9 - 48 U/L [facility] AST [Catalytic activity/Vol] 20 U/L 10 - 39 U/L [facility] Bilirubin [Mass/Vol] 0.4 mg/dL NINF - 1.5 mg/dL [facility] Bilirubin.direct [Mass/Vol] 0.1 mg/dL NINF - 0.3 mg/dL [facility] Interpretation and review of laboratory results Normal [facility] Protein [Mass/Vol] 6.7 g/dL 6.4 - 8.3 g/dL [facility] Albumin [Mass/Vol] 3.9 g/dL Normal 3.5-5.0 [facility] Comment on above: Performed By: #### C HM7 #### [facility] (DEFAULT) [address] [address] ALP [Catalytic activity/Vol] 87 U/L Normal 32-126 [facility] Comment on above: Performed By: #### C HM7 #### [facility] (DEFAULT) [address] [address] ALT [Catalytic activity/Vol] 11 U/L Normal 9-48 [facility] Comment on above: Performed By: #### C HM7 #### [facility] (DEFAULT) [address] [address] AST [Catalytic activity/Vol] 20 U/L Normal 10-39 [facility] Comment on above: Performed By: #### C HM7 #### [facility] (DEFAULT) [address] [place] [address] Bilirubin [Mass/Vol] 0.4 mg/dL Normal <1.5 [facility] Comment on above: Performed By: #### C HM7 #### [facility] (DEFAULT) [address] [place] [address] Bilirubin.indirect [Mass/Vol] 0.1 mg/dL Normal <0.3 [facility] Comment on above: Performed By: #### C HM7 #### [facility] (DEFAULT) [address] [address] Protein [Mass/Vol] 6.7 g/dL Normal 6.4-8.3 [facility] Comment on above: Performed By: #### C HM7 #### [facility] (DEFAULT) [address] [address] HIGH SENSITIVITY TROPONIN I - SINGLE ORDERon 10-27-2024 Interpretation and review of laboratory results Normal [facility] Troponin I.cardiac High sensitivity method [Mass/Vol] 28 ng/L NINF - 34 ng/L [facility] hs-Troponin I 28 ng/L Normal <34 [facility] Comment on above: Order Comment: Acute Coronary Syndrome (ACS): Initial Evaluation and Management: [email or web address] Performed By: #### L ABHSTI1 #### [facility] (DEFAULT) [address] [address] Hematocrit Auto (Bld) [Volum e fraction]Ordered By: Song Yanez on 10-27-2024 Hematocrit (Bld) [Volume fraction] 34.5 % Low 37-47 [facility] Hemoglobin measurementOrdere d By: Song Yanez on 10-27-2024 Hemoglobin (Bld) [Mass/Vol] 11.3 g/dL Low 12.0-15. 0 [facility] Immature granulocytes/100 WB C Auto (Bld)Ordered By: Song Yanez on 10-27-2024 Immature granulocytes/100 WBC (Bld) 0.300 % 0.0-0.9 [facility] Comment on above: IG% - Immature Granu locytes (promyelocytes, myelocytes and metamyelocytes) > 1% indicates that a LEFT SHIFT is Present. International normalized rat io (INR) calculationOrdered By: Song Yanez on 10-27-2024 INR Coag (Bld) [Relative time] 1.0 {INR} [facility] Ketones Test strip Ql (U)Ord ered By: Song Yanez on 10-27-2024 Ketones Ql (U) Negative Negative [facility] L501.4020on 10-27-2024 TROPONIN-I HS 14 pg/mL Normal 3.0-54.0 [facility] Comment on above: Order Comment: 'TROP ' Serial specimen #1, #2 or #3: 1 Result Comment: [place] gay Note: New Test Units and Gender Specific Reference Ranges. For more information see Policy Stat Procedure [place] High Sensitivity Troponin (TNIH) and attachments. Performed By: #### L 505.5000 #### [facility] [address] [place], [address] Lymphocytes Auto (Unsp spec) [#/Vol]Ordered By: Song Yanez on 10-27-2024 Lymphocytes (Bld) [#/Vol] 2.01 10*3/uL 0.83-4.5 1 [facility] Lymphocytes/100 WBC Auto (Un sp spec)Ordered By: Song Yanez on 10-27-2024 Lymphocytes/100 WBC (Bld) 28.7 % 19-41 [facility] MCV (mean corpuscular volume ) determinationOrdered By: Song Yanez on 10-27-2024 MCV (RBC) [Entitic vol] 83.3 fL 81-[address] [facility] M[place] GRE[place] TOP TUBEon 2024 [facility] Mean corpuscular hemoglobin (MCH) determinationOrdered By: Song Yanez on 10-27-2024 MCH (RBC) [Entitic mass] 27.3 pg 27.0-32.0 [facility] Mean corpuscular hemoglobin concentration (MCHC) determinationOrdered By: Song Yanez on 10-27-2024 MCHC (RBC) [Mass/Vol] 32.8 g/dL 32-36 [facility] Mean platelet volume determi nationOrdered By: Song Yanez on 10-27-2024 Platelet mean volume (Bld) [Entitic vol] 9.1 fL 6.2-12.0 [facility] Methadone, urineOrdered By: Song Yanez on 10-27-2024 Urine Methadone Screen Negative < 300 ng/mL [facility] Microscopic analysis of urin e for red blood cells (RBC)Ordered By: Song Yanez on 10-27-2024 Urine RBC 0-5 SEEN /hpf 0-5 [facility] Monocyte percentageOrdered B y: Song Yanez on 10-27-2024 Monocytes/100 WBC (Bld) 8.4 % 0-[address] [facility] Mucus LM Ql (Urine sed)Order ed By: Song Yanez on 10-27-2024 Mucus Ql (Urine sed) 0 SEEN /hpf [facility] Neutrophil percentageOrdered By: Song Yanez on 10-27-2024 Neutrophils/100 WBC (Bld) 61.2 % 47-70 [facility] Nitrite Test strip Ql (U)Ord ered By: Song Yanez on 10-27-2024 Nitrite Ql (U) Negative Negative [facility] No Panel Informationon 10-27 [facility] Interpretation and review of laboratory results Normal [facility] No Panel InformationOrdered By: Song Yanez on 10-27-2024 Urine Drug Screen Comment [facility] Comment on above: CONFIRMATORY TESTING FOR ALL POSITIVE URINE DRUG SCREENRESULTS WILL ONLY BE SENT OUT UPON PHYSICIAN ORDER. VISTA Urine Drug Screen methods provide only preliminaryanalytical test results. A more specific alternate chemicalmethod must be used in order to obtain a confirmedanalytical result. Gas chromatography/mass spectrometery(GC/MS) is the preferred confirmatory method. Clinicalconsideration and professional judgement should be appliedto any drug of abuse test result, particularly whenpreliminary positive results are used. URINE TCA TESTING MUST BE ORDERED SEPARATELY. USE TESTMNEMONIC: [facility] Nucleated red blood cell per centageOrdered By: Song Yanez on 10-27-2024 Nucleated RBC/100 WBC (Bld) [Ratio] 0 % 0-5 [facility] PTINR-STROKEon 10-27-2024 INR Coag (Bld) [Relative time] 1.1 {INR} 0.9 - 1.1 [facility] PT Coag (PPP) [Time] 14.1 s [facility] INR Coag (PPP) [Relative time] 1.1 {INR} Normal 0.9-1.1 [facility] Comment on above: Performed By: #### L [id number] #### [facility] (DEFAULT) [address] [place] [address] PT Coag (PPP) [Time] 14.1 s Normal 11.9-14.2 [facility] Comment on above: Performed By: #### L [id number] #### [facility] (DEFAULT) [address] [place] [address] PTTon 10-27-2024 aPTT Coag (PPP) [Time] 33.[address] [facility] aPTT Coag (Bld) [Time] 33.7 s Normal 24.0-34.3 [facility] Comment on above: Performed By: #### L AB980 #### [facility] (DEFAULT) [address] [place] [address] Partial Thromboplast Timeon 10-27-2024 aPTT Coag (Bld) [Time] 32.9 s Normal 24.1-36.2 [facility] Comment on above: Performed By: #### L 505.5000 #### [facility] [address] [place], [address] Platelet countOrdered By: Obdulia Yanez on 10-27-2024 Platelets (Bld) [#/Vol] 279 10*3/uL 150-450 [facility] Portable XR Chest Viewson IMPRESSION: Nonspecific right infrahilar opacity. OLOGY EXAM: XR CHEST 1 VIE W PORTABLE, 10/27/2024 22:38 PM COMPARISON: No prior studies available for comparison. CLINICAL INDICATIONS: possible stroke recrudescence, assess for pathology RELEVANT CLINICAL HISTORY: FINDINGS: (Adequate technique) Implanted Devices: None Thorax: Right infrahilar opacity with some bronchial wall thickening may relate to airway disease. RADIOLOGY Quique Hastings MD - 10/27/2024 EXAM: XR CHEST 1 VIEW PORTABLE, 10/27/2024 22:38 PM COMPARISON: No prior studies available for comparison. CLINICAL INDICATIONS: possible stroke recrudescence, assess for pathology RELEVANT CLINICAL HISTORY: FINDINGS: (Adequate technique) Implanted Devices: None Thorax: Right infrahilar opacity with some bronchial wall thickening may relate to airway disease. IMPRESSION IMPRESSION: Nonspecific right infrahilar opacity. [facility] Radiology Study observation (narrative) [facility] Potassium measurementOrdered By: Song Yanez on 10-27-2024 Potassium [Moles/Vol] 3.6 mmol/L Normal 3.5-5.1 [facility] Comment on above: Order Comment: 'TROP ' Serial specimen #1, #2 or #3: 1 Performed By: #### L 501.080 #### [facility] [address] [place], [place], [id number] Protein Test strip Ql (U)Ord ered By: Song Yanez on 10-27-2024 Protein Ql (U) Negative Negative [facility] Prothrombin Time w/INRon INR Coag (PPP) [Relative time] 1.0 {INR} Normal [facility] Comment on above: Performed By: #### L 505.5000 #### [facility] [address] [place], [address] Prothrombin timeOrdered By: Song Yanez on 10-27-2024 PT Coag (PPP) [Time] 13.9 s Normal 11.7-14.9 [facility] Comment on above: Performed By: #### L 505.5000 #### [facility] [address] [place], [address] Quantitative urine opiates m easurementOrdered By: Song Yanez on 10-27-2024 Opiates Ql (U) Negative < 300 ng/mL [facility] RBC Auto (Bld) [#/Vol]Ordere d By: Song Yanez on 10-27-2024 RBC (Bld) [#/Vol] 4.14 10*6/uL Low 4.2-5.4 [facility] STROKE Brain/Head without Co nton 10-27-2024 STROKE Brain/Head without Cont [facility] Imaging Services [address] [place] [address] STROKE Brain/Head without Cont MR#: [id number] Acct: [id number] Name: POONAM VELOZ Rep #: [id number] : 1940 F 84 From: Jeet Schwab PCP: Dr. Clyde Downing MD Status: [facility] Study: STROKE Brain/Head without Cont Date of Exam: 0 10/27/24 Exam# [id number] Ordering Dr: Song Yanez DO ADDENDUM by Dr. Jeet Fischer MD on 10/27/24 at 1630 [id number] STUDY: CT BRAIN WITHOUT CONTRAST REASON FOR EXAM: Female, 84 years old. Neuro deficit, acute, stroke suspected RADIATION DOSAGE (If Supplied By Facility): CTDIvol = ( ) mGy, DLP = ( 745.49 ) mGycm TECHNIQUE: Transaxial CT imaging of the brain was performed without administration of intravenous contrast material. Individualized dose optimization techniques were used for this CT. The protocol utilizes one or more of the following dose reduction techniques: automated exposure control, adjustment of mA and/or kV according to patient size,and/or use of iterative reconstruction technique. COMPARISON: CT brain July 27, 2024. FINDINGS: Normal soft tissue structures. Normal calvarium. Remote infarct left posterior parietal and temporal lobes. There is mild cerebral atrophy with widening of the extra-axial spaces and ventricular dilatation. Normal white matter tracts of the cerebral hemispheres. Normal basal ganglia and thalami. Normal brainstem. Normal cerebellum. There is no intracranial hemorrhage. There are no findings of an acute ischemic infarction. Normal visualized paranasal sinuses. 10/27/24 1630 Date cc: Dr. Clyde Downing MD; Dr. Song Yanez DO * Signed ADDENDUM by Dr. Jeet Fischer MD on 10/27/[address]/STROKE Brain/Head without Cont IMPRESSION: Remote left posterior MCA infarct. No acute disease. N.B. : The above Results were Read Back by Jeet Fischer MD to Song Yanez DO, and understanding confirmed on 10/27/2024 16:51:35 (ET). Electronically Signed: Jeet Fischer MD at 16:30 EST Reading Location ID and State: [address] [place] [address] Tel , Service support , 10/27/24 1658 Date cc: Dr. Clyde Downing MD; Dr. Song Yanez DO * Signed We are attempting to reach an attending provider to discuss findings. An addendum with communication details will be sent when the communication is complete. [id number] STUDY: CT BRAIN WITHOUT CONTRAST REASON FOR EXAM: Female, 84 years old. Neuro deficit, acute, stroke suspected RADIATION DOSAGE (If Supplied By Facility): CTDIvol = ( ) mGy, DLP = ( 745.49 ) mGycm TECHNIQUE: Transaxial CT imaging of the brain was performed without administration of intravenous contrast material. Individualized dose optimization techniques were used for this CT. The protocol utilizes one or more of the following dose reduction techniques: automated exposure control, adjustment of mA and/or kV according to patient size,and/or use of iterative reconstruction technique. COMPARISON: CT brain July 27, 2024. FINDINGS: Normal soft tissue structures. Normal calvarium. Remote infarct left posterior parietal and temporal lobes. There is mild cerebral atrophy with widening of the extra-axial spaces and ventricular dilatation. Normal white matter tracts of the cerebral hemispheres. Normal basal ganglia and thalami. Normal brainstem. Normal cerebellum. There is no intracranial hemorrhage. There are no findings of an acute ischemic infarction. Normal visualized paranasal sinuses. CT/STROKE Brain/Head without Cont IMPRESSION: Remote left posterior MCA infarct. No acute disease. Electronically Signed: Jeet Fischer MD at 16:30 EST , CC: Dr. Clyde Downing MD; Dr. Song Yanez DO Formulator Compounder: Signed Normal [facility] STROKE CTA Head AND Neck W/C onon 10-27-2024 STROKE CTA Head AND Neck W/Con [facility] Imaging Services [address] [place] [id number] STROKE CTA Head AND Neck W/Con MR#: [id number] Acct: [id number] Name: POONAM VELOZ Rep #: [id number] : 1940 F 84 From: Jeet Schwab PCP: Dr. Clyde Downing MD Status: [facility] Study: STROKE CTA Head AND Neck W/Con Date of Exam: 0 10/27/24 Exam# [id number] Ordering Dr: Song Yanez DO ADDENDUM by Dr. Jeet Fischer MD on 10/27/24 at 1653 [id number] STUDY: CTA HEAD AND NECK WITH CONTRAST REASON FOR EXAM: Female, 84 years old. Neuro deficit, acute, stroke suspected RADIATION DOSAGE (If Supplied By Facility): CTDIvol = ( 17.02 ) mGy, DLP = ( 611.37 ) mGycm TECHNIQUE: CT angiography was performed with a multi-detector CT scanner. Data acquisition was obtained from the skull base through the vertex following intravenous administration of IV 100mL Isovue-370. MIP images were reconstructed from the axial data set. Post-processing of the angiographic images was performed, with multiplanar reformation and 3D reconstruction. Individualized dose optimization techniques were used for this CT. The protocol utilizes one or more of the following dose reduction techniques: automated exposure control, adjustment of mA and/or kV according to patient size,and/or use of iterative reconstruction technique. COMPARISON: CT brain July 27, 2024. CTA brain July 27, 2024. FINDINGS: Normal bilateral petrous carotid arteries. Normal right cavernous carotid artery with a normal supraclinoid bifurcation. Normal left cavernous carotid artery with a normal supraclinoid bifurcation. Normal right A1 segments of the anterior cerebral artery. Normal left A1 segments of the anterior cerebral artery. There is non-visualization of the anterior communicating artery (ACOM). Normal bilateral A2 segments of the anterior cerebral arteries. Normal right M1 and M2 segments of the middle cerebral arteries, with a normal M1 bifurcation. Normal left M1 and M2 segments of the middle cerebral arteries, with a normal M1 bifurcation. Normal right posterior communicating artery (PCOM). Normal left posterior communicating artery (PCOM). Normal bilateral vertebral arteries. Normal basilar artery with a normal basilar bifurcation. The visualized bilateral superior cerebellar (SCA) arteries are normal. Normal bilateral P1, P2 and visualized P3 segments of the posterior cerebral arteries. There is no demonstrated aneurysm of the [place]. There is no demonstrated abnormality of the visualized brain. AORTIC ARCH: Normal visualized aortic arch. Normal origins of the brachiocephalic, left common carotid, and left subclavian arteries. RIGHT CAROTID ARTERIES: Normal right common carotid artery (CCA). There is moderate atherosclerotic plaque formation with moderate narrowing of the right carotid bulb. There is moderate atherosclerotic plaque formation of the origin of the right internal carotid artery with an estimated stenosis of 50-69% stenosis. Normal visualized cervical portion of the right internal carotid artery. Normal origin of the right external carotid artery (ECA). LEFT CAROTID ARTERIES: Normal left common carotid artery (CCA). Normal left common carotid bulb. Normal origin of the left internal carotid (ICA) artery without a hemodynamically significant stenosis. Normal visualized cervical portion of the left internal carotid artery. Normal origin of the left external carotid artery (ECA). VERTEBRAL ARTERIES: Normal bilateral vertebral arteries. Left vertebral artery anatomic variant directly from the arch. 10/27/24 1653 Date cc: Dr. Clyde Downing MD; Dr. Song Yanez DO * Signed ADDENDUM by Dr. Jeet Fischer MD on 10/27/[address]/STROKE CTA Head AND Neck W/Con IMPRESSION: Normal CTA Head and neck with contrast. N.B. : The above Results were Read Back by Jeet Fischer MD to Song Yanez DO, and understanding confirmed on 10/27/2024 16:51:42 (ET). Electronically Signed: Jeet Fischer MD at 16:53 EST , 10/27/24 1700 Date cc: Dr. Clyde Downing MD; Dr. Song Yanez DO * Signed [id number] STUDY: CTA HEAD AND NECK WITH CONTRAST REASON FOR EXAM: Female, 84 years old. Neuro deficit, acute, stroke suspected RADIATION DOSAGE (If Supplied By Facility): CTDIvol = ( 17.02 ) mGy, DLP = ( 611.37 ) mGycm TECHNIQUE: CT angiography was performed with a multi-detector CT scanner. Data acquisition was obtained from the skull base through the vertex following intravenous administration of IV (more content not included)... Normal [facility] Serum anion gap measurementO rdered By: Song Yanez on 10-27-2024 Anion gap [Moles/Vol] 7 mmol/L 5-15 [facility] Serum ethanol measurementOrd ered By: Song Yanez on 10-27-2024 Ethyl Alcohol Level < 3.0 mg/dL [facility] Comment on above: The serum:whole bloo d ethanol ratio is approximately 1.14and varies slightly with hematocrit. Medical Alcohol reference interval and critical value innon-tolerant individuals; 50 - 100 Impairment 100 Intoxication 100 - 250 Severe Poisoning 250 - 400 Deep/possible fatal coma Serum or plasma calcium willy urement (mass/volume)Ordered By: Song Yanez on 10-27-2024 Calcium [Mass/Vol] 9.2 mg/dL 8.5-10.1 [facility] Serum or plasma creatinine m easurement (mass/volume)Ordered By: Song Yanez on 10-27-2024 Creatinine [Mass/Vol] 0.86 mg/dL Normal 0.55-1.02 [facility] Comment on above: The validity of the calculated GFR & GFRAA in patients over 70 years has not been determined. Clinical correlation is essential. Order Comment: 'TROP ' Serial specimen #1, #2 or #3: 1 Result Comment: The validity of the calculated GFR GFRAA in patients over 70 years has not been determined. Clinical correlation is essential. Performed By: #### L 501.080 #### [facility] [address] [place], [place], [id number] Serum or plasma urea nitroge n measurement (mass/volume)Ordered By: Song Yanez on 10-27-2024 Urea nitrogen [Mass/Vol] 25 mg/dL High 7-18 [facility] Comment on above: Order Comment: 'TROP ' Serial specimen #1, #2 or #3: 1 Performed By: #### L 501.080 #### [facility] [address] [place], [place], [id number] Sodium levelOrdered By: Winnie Yanez on 10-27-2024 Sodium [Moles/Vol] 137 mmol/L Normal 136-145 [facility] Comment on above: Order Comment: 'TROP ' Serial specimen #1, #2 or #3: 1 Performed By: #### L 501.080 #### [facility] [address] [facility] [place], [address] Troponin IOrdered By: Song Yanez on 10-27-2024 Troponin I High Sensitivity 14 pg/mL 3.0-54.0 [facility] Comment on above: Please Note: New Abena t Units and Gender Specific Reference Ranges. For more information see Policy Stat Procedure [place] High Sensitivity Troponin (TNIH) and attachments. URINALYSIS REFLEX TO CULTURE PERFORMABLEon 10-27-2024 Appearance (U) Clear Clear [facility] Bacteria LM Ql (Urine sed) ABSENT ABSENT [facility] Color (U) Yellow Yellow [facility] Epithelial cells.squamous LM Ql (Urine sed) 0-2/hpf 0-2/hpf, 3-5/hpf = 1+ [facility] Glucose Test strip (U) [Mass/Vol] Negative Negative [facility] Interpretation and review of laboratory results Abnormal [facility] Ketones (U) [Mass/Vol] Negative Negative [facility] Leukocyte esterase Test strip Ql (U) Negative Negative [facility] Nitrite Ql (U) Negative Negative [facility] pH (U) 5.5 [pH] 5.0 - 7.0 [facility] Protein (U) [Mass/Vol] Negative Negative [facility] RBC (U) [#/Vol] Moderate Abnormal Negative [facility] RBC LM.HPF (Urine sed) [#/Area] /[HPF] Abnormal [facility] Specific gravity (U) [Rel density] High 1.001 - 1.035 [facility] Urobilinogen (U) [Mass/Vol] 0.2 E.U./dL 0.2 E.U/dL, 1.0 E.U/dL [facility] WBC LM.HPF (Urine sed) [#/Area] 0 - 5 [facility] Appearance (U) Clear Normal Clear [facility] Comment on above: Order Comment: Fibr inogen levels may be altered by the normal physiologic changes of and should be interpreted considering reference ranges specific to gestational age. First Trimester: 244-510 mg/dL Second Trimester: 291-538 mg/dL Third Trimester/: 373-619 mg/dL Reference: Denise Jaime LG, Cunningham FG. and laboratory studies: a reference table for clinicians. Obstet Gynecol 2009; 114:1326. Performed By: #### F IB #### [facility] (DEFAULT) [address] [place] [address] Bacteria ABSENT Normal ABSENT [facility] Comment on above: Order Comment: Fibr inogen levels may be altered by the normal physiologic changes of and should be interpreted considering reference ranges specific to gestational age. First Trimester: 244-510 mg/dL Second Trimester: 291-538 mg/dL Third Trimester/: 373-619 mg/dL Reference: Denise Jaime LG, Cunningham FG. and laboratory studies: a reference table for clinicians. Obstet Gynecol 2009; 114:1326. Performed By: #### F IB #### [facility] (DEFAULT) [address] [place] [address] Blood Urine Moderate Abnormal Negative [facility] Comment on above: Order Comment: Fibr inogen levels may be altered by the normal physiologic changes of and should be interpreted considering reference ranges specific to gestational age. First Trimester: 244-510 mg/dL Second Trimester: 291-538 mg/dL Third Trimester/: 373-619 mg/dL Reference: Denise Jaime LG, Cunningham FG. and laboratory studies: a reference table for clinicians. Obstet Gynecol 2009; 114:1326. Performed By: #### F IB #### [facility] (DEFAULT) [address] [place] [address] Color (U) Yellow Normal Yellow [facility] Comment on above: Order Comment: Fibr inogen levels may be altered by the normal physiologic changes of and should be interpreted considering reference ranges specific to gestational age. First Trimester: 244-510 mg/dL Second Trimester: 291-538 mg/dL Third Trimester/: 373-619 mg/dL Reference: Denise Jaime LG, Cunningham FG. and laboratory studies: a reference table for clinicians. Obstet Gynecol 2009; 114:1326. Performed By: #### F IB #### [facility] (DEFAULT) [address] [address] Glucose Ql (U) Negative Normal Negative [facility] Comment on above: Order Comment: Fibr inogen levels may be altered by the normal physiologic changes of and should be interpreted considering reference ranges specific to gestational age. First Trimester: 244-510 mg/dL Second Trimester: 291-538 mg/dL Third Trimester/: 373-619 mg/dL Reference: Denise Jaime LG, Cunningham FG. and laboratory studies: a reference table for clinicians. Obstet Gynecol 2009; 114:1326. Performed By: #### F IB #### [facility] (DEFAULT) [address] [address] Ketones Ql (U) Negative Normal Negative [facility] Comment on above: Order Comment: Fibr inogen levels may be altered by the normal physiologic changes of and should be interpreted considering reference ranges specific to gestational age. First Trimester: 244-510 mg/dL Second Trimester: 291-538 mg/dL Third Trimester/: 373-619 mg/dL Reference: Denise Jaime LG, Cunningham FG. and laboratory studies: a reference table for clinicians. Obstet Gynecol 2009; 114:1326. Performed By: #### F IB #### [facility] (DEFAULT) [address] [place] [address] Leukocyte esterase Test strip Ql (U) Negative Normal Negative [facility] Comment on above: Order Comment: Fibr inogen levels may be altered by the normal physiologic changes of and should be interpreted considering reference ranges specific to gestational age. First Trimester: 244-510 mg/dL Second Trimester: 291-538 mg/dL Third Trimester/: 373-619 mg/dL Reference: Denise Jaime LG, Cunningham FG. and laboratory studies: a reference table for clinicians. Obstet Gynecol 2009; 114:1326. Performed By: #### F IB #### [facility] (DEFAULT) [address] [place] [address] Nitrites Urine Negative Normal Negative [facility] Comment on above: Order Comment: Fibr inogen levels may be altered by the normal physiologic changes of and should be interpreted considering reference ranges specific to gestational age. First Trimester: 244-510 mg/dL Second Trimester: 291-538 mg/dL Third Trimester/: 373-619 mg/dL Reference: Denise Jaime LG, Cunningham FG. and laboratory studies: a reference table for clinicians. Obstet Gynecol 2009; 114:1326. Performed By: #### F IB #### [facility] (DEFAULT) [address] [address] pH (U) 5.5 [pH] Normal 5.0-7.0 [facility] Comment on above: Order Comment: Fibr inogen levels may be altered by the normal physiologic changes of and should be interpreted considering reference ranges specific to gestational age. First Trimester: 244-510 mg/dL Second Trimester: 291-538 mg/dL Third Trimester/: 373-619 mg/dL Reference: Denise Jaime LG, Cunningham FG. and laboratory studies: a reference table for clinicians. Obstet Gynecol 2009; 114:1326. Performed By: #### F IB #### [facility] (DEFAULT) [address] [address] Protein Urine Negative Normal Negative [facility] Comment on above: Order Comment: Fibr inogen levels may be altered by the normal physiologic changes of and should be interpreted considering reference ranges specific to gestational age. First Trimester: 244-510 mg/dL Second Trimester: 291-538 mg/dL Third Trimester/: 373-619 mg/dL Reference: Denise Jaime LG, Cunningham FG. and laboratory studies: a reference table for clinicians. Obstet Gynecol 2009; 114:1326. Performed By: #### F IB #### [facility] (DEFAULT) [address] [address] RBC LM.HPF (Urine sed) [#/Area] /[HPF] Abnormal 0-2 [facility] Comment on above: Order Comment: Fibr inogen levels may be altered by the normal physiologic changes of and should be interpreted considering reference ranges specific to gestational age. First Trimester: 244-510 mg/dL Second Trimester: 291-538 mg/dL Third Trimester/: 373-619 mg/dL Reference: Denise Jaime LG, Luis Miguel GUPTA. and laboratory studies: a reference table for clinicians. Obstet Gynecol 2009; 114:1326. Performed By: #### F IB #### [facility] (DEFAULT) [address] [address] Specific [place] Urine > High 1.001 -1.03 5 [facility] Comment on above: Order Comment: Fibr inogen levels may be altered by the normal physiologic changes of and should be interpreted considering reference ranges specific to gestational age. First Trimester: 244-510 mg/dL Second Trimester: 291-538 mg/dL Third Trimester/: 373-619 mg/dL Reference: Denise Jaime LG, Cunningham FG. and laboratory studies: a reference table for clinicians. Obstet Gynecol 2009; 114:1326. Performed By: #### F IB #### [facility] (DEFAULT) [address] [place] [address] Squamous/Epithelial Cells 0-2/hpf Normal 0- 2/hpf, 3-5/hpf = 1+ [facility] Comment on above: Order Comment: Fibr inogen levels may be altered by the normal physiologic changes of and should be interpreted considering reference ranges specific to gestational age. First Trimester: 244-510 mg/dL Second Trimester: 291-538 mg/dL Third Trimester/: 373-619 mg/dL Reference: Denise Jaime LG, Luis Miguel GUPTA. and laboratory studies: a reference table for clinicians. Obstet Gynecol 2009; 114:1326. Performed By: #### F IB #### [facility] (DEFAULT) [address] [address] Urobilinogen Urine 0.2 E.U./dL Normal 0.2 E.U/dL, 1.0 E.U/dL [facility] Comment on above: Order Comment: Fibr inogen levels may be altered by the normal physiologic changes of and should be interpreted considering reference ranges specific to gestational age. First Trimester: 244-510 mg/dL Second Trimester: 291-538 mg/dL Third Trimester/: 373-619 mg/dL Reference: Denise Jaime LG, Luis Miguel FG. and laboratory studies: a reference table for clinicians. Obstet Gynecol 2009; 114:1326. Performed By: #### F IB #### [facility] (DEFAULT) [address] [address] WBC Urine 0 - 5 Normal 0 - 5 [facility] Comment on above: Order Comment: Fibr inogen levels may be altered by the normal physiologic changes of and should be interpreted considering reference ranges specific to gestational age. First Trimester: 244-510 mg/dL Second Trimester: 291-538 mg/dL Third Trimester/: 373-619 mg/dL Reference: Denise Jaime LG, Luis Miguel FG. and laboratory studies: a reference table for clinicians. Obstet Gynecol 2009; 114:1326. Performed By: #### F IB #### [facility] (DEFAULT) [address] [address] URINE DRUG SCREEN 10-27 Amphetamine+Methamphetamine Screen (U) [Mass/Vol] Not detected Cutoff: 500 ng/mL [facility] Barbiturates Ql (U) Not detected Cutoff: 200 ng/mL [facility] Benzodiazepines Ql (U) Not detected Cutof f: 200 ng/mL [facility] Buprenorphine Ql (U) Not detected Cutoff: 5 ng/mL [facility] Cannabinoids Screen Ql (U) Not detected C utoff: 50 ng/mL [facility] Cocaine Ql (U) Not detected Cutoff: 150 ng/mL [facility] fentaNYL Ql (U) Not detected Cutoff: 1 ng/mL [facility] Interpretation and review of laboratory results Normal [facility] Methadone Ql (U) Not detected Cutoff: 300 ng/mL [facility] Opiates Ql (U) Not detected Cutoff: 300 ng/mL [facility] oxyCODONE Ql (U) Not detected Cutoff: 100 ng/mL [facility] For medical purposes only. Positive results are unconfirmed unless otherwise noted. [facility] Amphetamine/Methamphetamine Not detected Normal Cutoff: 500 ng/mL [facility] Comment on above: Order Comment: For edical purposes only. Positive results are unconfirmed unless otherwise noted. Performed By: #### L [id number] #### [facility] (DEFAULT) [address] [address] Barbiturates Not detected Normal Cutoff: 200 ng/mL [facility] Comment on above: Order Comment: For m edical purposes only. Positive results are unconfirmed unless otherwise noted. Performed By: #### L [id number] #### [facility] (DEFAULT) [address] [address] Benzodiazepines Not detected Normal Cutoff: 200 ng/mL [facility] Comment on above: Order Comment: For m edical purposes only. Positive results are unconfirmed unless otherwise noted. Performed By: #### L [id number] #### [facility] (DEFAULT) [address] [address] Buprenorphine Not detected Normal Cutoff: 5 ng/mL [facility] Comment on above: Order Comment: For m edical purposes only. Positive results are unconfirmed unless otherwise noted. Performed By: #### L [id number] #### [facility] (DEFAULT) [address] [address] Cannabinoids Screen Ql (U) Not detected Normal C utoff: 50 ng/mL [facility] Comment on above: Order Comment: For m edical purposes only. Positive results are unconfirmed unless otherwise noted. Performed By: #### L [id number] #### [facility] (DEFAULT) [address] [address] Cocaine Not detected Normal Cutoff: 150 ng/mL [facility] Comment on above: Order Comment: For edical purposes only. Positive results are unconfirmed unless otherwise noted. Performed By: #### L [id number] #### [facility] (DEFAULT) [address] [address] Fentanyl Not detected Normal Cutoff: 1 ng/mL [facility] Comment on above: Order Comment: For edical purposes only. Positive results are unconfirmed unless otherwise noted. Performed By: #### L [id number] #### [facility] (DEFAULT) [address] [address] Methadone Not detected Normal Cutoff: 300 ng/mL [facility] Comment on above: Order Comment: For edical purposes only. Positive results are unconfirmed unless otherwise noted. Performed By: #### L [id number] #### [facility] (DEFAULT) [address] [address] Opiates Not detected Normal Cutoff: 300 ng/mL [facility] Comment on above: Order Comment: For edical purposes only. Positive results are unconfirmed unless otherwise noted. Performed By: #### L [id number] #### [facility] (DEFAULT) [address] [address] Oxycodone Not detected Normal Cutoff: 100 ng/mL [facility] Comment on above: Order Comment: For edical purposes only. Positive results are unconfirmed unless otherwise noted. Performed By: #### L [id number] #### [facility] (DEFAULT) [address] [address] Urinalysis, Completeon 10-27 RBC 0-5 SEEN Normal 0-5 [facility] Comment on above: Order Comment: KAITY TER SPECIMEN Performed By: #### L 501.080 #### [facility] [address] [place], [address] BACTERIA 0 SEEN Normal None Seen [facility] Comment on above: Order Comment: KAITY TER SPECIMEN Performed By: #### L 501.080 #### [facility] [address] [place], [address] EPI,SQUAMOUS 0 SEEN Normal 5-10 [facility] Comment on above: Order Comment: KAITY TER SPECIMEN Performed By: #### L 501.080 #### [facility] [address] [place], [address] Mucus Ql (Urine sed) 0 SEEN Normal [facility] Comment on above: Order Comment: KAITY TER SPECIMEN Performed By: #### L 501.080 #### [facility] [address] [place], [address] WBC 0 SEEN Normal 0-5 [facility] Comment on above: Order Comment: KAITY TER SPECIMEN Performed By: #### L 501.080 #### [facility] [address] [place], [address] Urine Drug Screen (VISTA)on 10-27-2024 AMPHETAMINES Negative Normal <1000 ng/mL [facility] Comment on above: Performed By: #### L 505.5000 #### [facility] [address] [place], [address] BARBITIURATES Negative Normal < 200 ng/mL [facility] Comment on above: Performed By: #### L 505.5000 #### [facility] [address] [place], [address] BENZODIAZIPINE Negative Normal < 200 ng/mL [facility] Comment on above: Performed By: #### L 505.5000 #### [facility] [address] [place], [address] COCAINE Negative Normal < 300 ng/mL [facility] Comment on above: Performed By: #### L 505.5000 #### [facility] [address] [place], [address] ECSTACY Negative Normal < 500 ng/mL [facility] Comment on above: Performed By: #### L 505.5000 #### [facility] [address] [place], [address] METHADONE Negative Normal < 300 ng/mL [facility] Comment on above: Performed By: #### L 505.5000 #### [facility] [address] [place], [address] OPIATES Negative Normal < 300 ng/mL [facility] Comment on above: Performed By: #### L [id number] #### [facility] [address] [place], [address] PCP Negative Normal < 25 ng/mL [facility] Comment on above: Performed By: #### L 505.5000 #### [facility] [address] [place], [place], [facility] THC Negative Normal < 50 ng/mL [facility] Comment on above: Performed By: #### L 505.5000 #### [facility] [address] [place], [place], [facility] VISTA UDS PH 6 Normal [facility] Comment on above: Performed By: #### L 505.5000 #### [facility] [address] [place], [place], [facility] Urine amphetamine measuremen tOrdered By: Song Yanez on 10-27-2024 Amphetamines Ql (U) Negative <1000 ng/mL [facility] Urine barbiturates measureme ntOrdered By: Song Yanez on 10-27-2024 Urine Barbiturates Screen Negative < 200 ng/mL [facility] Urine benzodiazepine levelOr dered By: Song Yanez on 10-27-2024 Benzodiazepines Ql (U) Negative < 200 ng/mL [facility] Urine blood detectionOrdered By: Song Yanez on 10-27-2024 Urine Occult Blood 10 /ul High Negative [facility] Urine clarityOrdered By: Neville Yanez on 10-27-2024 Clarity (U) Clear Clear [facility] Urine cocaine levelOrdered B y: Song Yanez on 10-27-2024 Cocaine Ql (U) Negative < 300 ng/mL [facility] Urine color determinationOrd ered By: Song Yanez on 10-27-2024 Color (U) Yellow Yellow [facility] Urine rpcoz-0-ocazfydlvmbegn abinol (THC) measurementOrdered By: Song Yanez on 10-27-2024 Cannabinoids Screen Ql (U) Negative < 50 ng/m L [facility] Urine leukocyte esterase det ection by dipstickOrdered By: Song Yanez on 10-27-2024 Leukocyte esterase Test strip Ql (U) Negative Negative [facility] Urine methylenedioxymethamph etamine (MDMA) measurementOrdered By: Song Yanez on 10-27-2024 MDMA (Ecstasy) Screen Negative < 500 ng/mL [facility] Urine pHOrdered By: Snog ness on 10-27-2024 pH (U) 6.0 [pH] 5.0 - 8.0 [facility] Urine phencyclidine (PCP) de tectionOrdered By: Song Yanez on 10-27-2024 Phencyclidine Ql (U) Negative < 25 ng/mL [facility] Urine sediment bacteria coun t by microscopy (number/high power field)Ordered By: Song Yanez on 10-27-2024 Bacteria LM.HPF (Urine sed) [#/Area] 0 /[HPF] None Seen [facility] Urine specific gravity measu rementOrdered By: Song Yanez on 10-27-2024 Specific gravity (U) [Rel density] 1.010 1.002-1.03 0 [facility] Urobilinogen Ql (U)Ordered B y: Song Yanez on 10-27-2024 Urine Urobilinogen Normal mg/dl Normal [facility] White blood cell (WBC) count Ordered By: Song Yanez on 10-27-2024 WBC (Bld) [#/Vol] 7.0 10*3/uL 4.4-11.0 [facility] White blood cell countOrdere d By: Song Yanez on 10-27-2024 Urine WBC 0 SEEN /hpf 0-5 [facility] XR CHEST 1 VIEW PORTABLEon 0 10-27-2024 XR CHEST 1 VIEW PORTABLE EXAM: XR CHEST 1 VIEW PORTABLE, 10/27/2024 22:38 PM COMPARISON: No prior studies available for comparison. CLINICAL INDICATIONS: possible stroke recrudescence, assess for pathology RELEVANT CLINICAL HISTORY: FINDINGS: (Adequate technique) Implanted Devices: None Thorax: Right infrahilar opacity with some bronchial wall thickening may relate to airway disease. IMPRESSION: Nonspecific right infrahilar opacity. Normal [facility] aPTT Coag (PPP) [Time]Ordere d By: Song Yanez on 10-27-2024 aPTT Coag (Bld) [Time] 32.9 s 24.1-36.2 [facility] Carotid Duplex Ultrasoundon 09-24-2024 Carotid Duplex Ultrasound [facility] [address] [place] [address] Carotid Duplex Ultrasound 09/24/24 0958 MR#: [id number] Acct: [id number] Name: POONAM VELOZ Rep #: [id number] : 1940 84 From: Ricardo Orr MD Attending Dr: SEEMA Hooker Status: REG CLI Ordering Dr: Thania Wisdom Date: 09/24/24 Location: [facility] Sex: F C Admitted: Reason For Study: Right ICA stenosis Rt. Velocities/BP Lt. Velocities/BP Prox CCA 108.4/12.6 cm/sec. Prox CCA 132.1/10.8 cm/sec. Mid CCA 109.7/12.6 cm/sec. Mid CCA 121.4/9.4 cm/sec. Dist CCA 104.7/11.4 cm/sec. Dist CCA 128/7.2 cm/sec. Prox ICA 236.9/23.6 cm/sec. Prox ICA 73.6/11.5 cm/sec. Mid ICA 145.5/16 cm/sec. Mid ICA 88.2/7.9 cm/sec. Dist ICA 91.9/13.3 cm/sec. Dist ICA 68.2/10.4 cm/sec. Rt. ICA/CCA = 2.16. Lt. ICA/CCA = 0.73. Prox ECA 192.6 cm/sec. Prox ECA 123.6 cm/sec. Rt. Vert. 47.4/8.1 cm/sec. Lt. Vert. 41/8 cm/sec. Right Extracranial There is intimal thickening but no significant atherosclerotic plaque noted in the right common carotid artery. There is heterogeneous, irregular atherosclerotic plaque noted in the right internal carotid artery. There is homogeneous, smooth atherosclerotic plaque noted in the right external carotid artery. Antegrade flow is noted in the right vertebral artery. Left Extracranial There is intimal thickening but no significant atherosclerotic plaque noted in the left common carotid artery. There is intimal thickening but no significant atherosclerotic plaque noted in the left internal carotid artery. There is heterogeneous, irregular atherosclerotic plaque noted in the left external carotid artery. Antegrade flow is noted in the left vertebral artery. Procedure Carotid Duplex [id number]. This is a Carotid Duplex examination using B-mode, color flow and specral Doppler. Exam performed in department. VL/Carotid Duplex Ultrasound Interpretation Summary Severe (>70%) stenosis right extracranial internal carotid. Mild (<50%) stenosis left extracranial internal carotid. Patent and antegrade vertebrals bilaterally. Ordering Physician: Thania Wisdom Referring Physician: Clyde Downing Performed By: Mary Grace Metzger RVT 09/24/24 0106 Date Ricardo Orr MD CC: SEEMA Hooker; Dr. Clyde Downing MD Date Dictated: 09/24/24 0958 Date Transcribed: 09/24/24 164 Formulator Compounder: Signed Normal [facility] Albumin to globulin ratioOrd ered By: Clyde Downing on 09-14-2024 Albumin/Globulin [Mass ratio] 0.9 {ratio} 0.9-2.4 [facility] Bilirubin, totalOrdered By: Clyde Downing on 09-14-2024 Bilirubin [Mass/Vol] 0.30 mg/dL 0.20-1.00 [facility] Comment on above: For patients on eltr ombopag therapy, use of Dimension [place] TBIL is not recommended. Blood urea nitrogen (BUN)/cr eatinine ratioOrdered By: Clyde Downing on 09-14-2024 Urea nitrogen/Creatinine [Mass ratio] 23.3 mg/mg High 10-20 [facility] Carbon dioxide measurementOr dered By: Clyde Downing on 09-14-2024 CO2 [Moles/Vol] 27.0 mmol/L 21.0-32.0 [facility] Chloride measurementOrdered By: Clyde Downing on 09-14-2024 Chloride [Moles/Vol] 107 mmol/L 98-107 [facility] Comprehensive Metabolic Prof ilon 09-14-2024 Albumin [Mass/Vol] 3.4 g/dL Normal 3.2-5.0 [facility] Comment on above: Performed By: #### L 500.4050, L501.8100, L500.4100 #### [facility] [address] [place], [address] Albumin/Globulin [Mass ratio] 0.9 {ratio} Normal 0.9-2.4 [facility] Comment on above: Performed By: #### L 500.4050, L501.8100, L500.4100 #### [facility] [address] [place], [address] ALK P 97 U/L Normal 45-117 [facility] Comment on above: Performed By: #### L 500.4050, L501.8100, L500.4100 #### [facility] [address] [place], [address] ALT [Catalytic activity/Vol] 15 U/L Normal 13-56 [facility] Comment on above: Performed By: #### L 500.4050, L501.8100, L500.4100 #### [facility] [address] [place], [address] AST [Catalytic activity/Vol] 14 U/L Low 15-37 [facility] Comment on above: Performed By: #### L 500.4050, L501.8100, L500.4100 #### [facility] [address] [place], [address] Bilirubin [Mass/Vol] 0.30 mg/dL Normal 0.20-1.00 [facility] Comment on above: Result Comment: For patients on eltrombopag therapy, use of Dimension [place] TBIL is not recommended. Performed By: #### L 500.4050, L501.8100, L500.4100 #### [facility] [address] [place], [address] BUN/CRE 23.3 RATIO High 10-20 [facility] Comment on above: Performed By: #### L 500.4050, L501.8100, L500.4100 #### [facility] [address] [place], [address] CA,Total 9.5 mg/dL Normal 8.5-10.1 [facility] Comment on above: Performed By: #### L 500.4050, L501.8100, L500.4100 #### [facility] [address] [place], [address] Chloride [Moles/Vol] 107 mmol/L Normal 98-107 [facility] Comment on above: Performed By: #### L 500.4050, L501.8100, L500.4100 #### [facility] [address] [place], [address] CO2 [Moles/Vol] 27.0 mmol/L Normal 21.0-32.0 [facility] Comment on above: Performed By: #### L 500.4050, L501.8100, L500.4100 #### [facility] [address] [place], [address] Creatinine [Mass/Vol] 0.90 mg/dL Normal 0.55-1.02 [facility] [place] [facility] Comment on above: Result Comment: The validity of the calculated GFR GFRAA in patients over 70 years has not been determined. Clinical correlation is essential. Performed By: #### L 500.4050, L501.8100, L500.4100 #### [facility] [address] [place], [address] EST GFR - AA 77 mL/min Normal >60 [facility] Comment on above: Result Comment: Afri can Peruvian GFR Calc Performed By: #### L 500.4050, L501.8100, L500.4100 #### [facility] [address] [place], [address] GAP 7 Normal 5-15 [facility] Comment on above: Performed By: #### L 500.4050, L501.8100, L500.4100 #### [facility] [address] [place], [address] GFR/1.73 sq M.predicted among non-blacks MDRD (S/P/Bld) [Vol rate/Area] 64 mL/min/{1.73_m2} Normal >60 [facility] Comment on above: Result Comment: Non- GFR Calc Performed By: #### L 500.4050, L501.8100, L500.4100 #### [facility] [address] [place], [address] Globulin (S) [Mass/Vol] 3.6 g/dL Normal 2.2-4.2 [facility] Comment on above: Performed By: #### L 500.4050, L501.8100, L500.4100 #### [facility] [address] [place], [address] Glucose [Mass/Vol] 104 mg/dL Normal 74-106 [facility] Comment on above: Result Comment: Fast ing Glucose result from 100 to 125 mg/dL suggests IMPAIRED HOMEOSTASIS per A.D.A. criteria. Performed By: #### L 500.4050, L501.8100, L500.4100 #### [facility] [address] [place], [address] Potassium [Moles/Vol] 3.5 mmol/L Normal 3.5-5.1 [facility] [place] [facility] Comment on above: Performed By: #### L 500.4050, L501.8100, L500.4100 #### [facility] [address] [place], [address] Sodium [Moles/Vol] 140 mmol/L Normal 136-145 [facility] Comment on above: Performed By: #### L 500.4050, L501.8100, L500.4100 #### [facility] [address] [place], [address] T PROT 7.0 g/dL Normal 6.4-8.2 [facility] Comment on above: Performed By: #### L 500.4050, L501.8100, L500.4100 #### [facility] [address] [place], [address] Urea nitrogen [Mass/Vol] 21 mg/dL High 7-18 [facility] Comment on above: Performed By: #### L 500.4050, L501.8100, L500.4100 #### [facility] [address] [place], [address] Estimated glomerular filtrat ion rate (GFR) AmericanOrdered By: Clyde Downing on 09-14-2024 Estimated GFR (MDRD) Amer 77 mL/min >60 [facility] Comment on above: GFR Calc Glomerular filtration rate ( GFR) estimationOrdered By: Clyde Downing on 09-14-2024 Estimated GFR (MDRD) Non-Af Amer 64 mL/min >60 [facility] Comment on above: Non- GFR Calc Glucose measurementOrdered B y: Clyde Downing on 09-14-2024 Glucose [Mass/Vol] 104 mg/dL 74-106 [facility] Comment on above: Fasting Glucose resu lt from 100 to 125 mg/dL suggests IMPAIRED HOMEOSTASIS per A.D.A. criteria. High density lipoprotein (HD L) measurementOrdered By: Clyde Downing on 09-14-2024 Cholesterol in HDL [Mass/Vol] 63 mg/dL >40 [facility] Comment on above: The drugs N-Acetylcy steine and Metamizole may falsely depress this assay. Reference Range HDL <40 mg/dL Low HDL Cholesterol HDL >or= 60 mg/dL High HDL Cholesterol Laboratory - Chemistry and C hemistry - challengeOrdered By: Clyde Downing on 09-14-2024 AST [Catalytic activity/Vol] 14 U/L Low 15-37 [facility] Lipid Profileon 09-14-2024 Cholesterol [Mass/Vol] 162 mg/dL Normal 200 [facility] Comment on above: Result Comment: <200 mg/dL Desirable 200-240 mg/dL Borderline >240 mg/dL High Risk Performed By: #### L 501.080 #### [facility] [address] [place], [place], [id number] (836) Cholesterol in HDL [Mass/Vol] 63 mg/dL Normal [facility] Comment on above: Result Comment: The drugs N-Acetylcysteine and Metamizole may falsely depress this assay. Reference Range HDL <40 mg/dL Low HDL Cholesterol HDL >or= 60 mg/dL High HDL Cholesterol Performed By: #### L 501.080 #### [facility] [address] [place], [address] Cholesterol in LDL [Mass/Vol] 82 mg/dL Normal 0-130 [facility] Comment on above: Performed By: #### L 501.080 #### [facility] [address] [place], [place], [address] Cholesterol in VLDL [Mass/Vol] 17 mg/dL Normal 5-40 [facility] Comment on above: Performed By: #### L 501.080 #### [facility] [address] [place], [address] Triglyceride [Mass/Vol] 86 mg/dL Normal [facility] Comment on above: Result Comment: The drugs N-Acetylcysteine and Metamizole may falsely depress this assay. Serum Triglycerides Reference Interval Normal <150 mg/dL Borderline high 150 - 199 mg/dL High 200 - 499 mg/dL Very High > or = 500 mg/dL Performed By: #### L 501.080 #### [facility] [address] [place], [place], [address] Low density lipoprotein (LDL ) cholesterol measurementOrdered By: Clyde Downing on 09-14-2024 Cholesterol in LDL [Mass/Vol] 82 mg/dL 0-130 [facility] Potassium measurementOrdered By: Clyde Downing on 09-14-2024 Potassium [Moles/Vol] 3.5 mmol/L 3.5-5.1 [facility] [place] [facility] Serum anion gap measurementO rdered By: Clyde Downing on 09-14-2024 Anion gap [Moles/Vol] 7 mmol/L -15 [facility] [place] [facility] Serum globulin measurementOr dered By: Clyde Downing on 09-14-2024 Globulin (S) [Mass/Vol] 3.6 g/dL 2.2-4.2 [facility] Serum or plasma alanine barriga otransferase (ALT) measurementOrdered By: Clyde Downing on 09-14-2024 ALT [Catalytic activity/Vol] 15 U/L [facility] Serum or plasma albumin willy urement (mass/volume)Ordered By: Clyde Downing on 09-14-2024 Albumin [Mass/Vol] 3.4 g/dL 3.2-5.0 [facility] Serum or plasma alkaline vasile sphatase measurementOrdered By: Clyde Downing on 09-14-2024 ALP [Catalytic activity/Vol] 97 U/L 45-117 [facility] Serum or plasma calcium willy urement (mass/volume)Ordered By: Clyde Downing on 09-14-2024 Calcium [Mass/Vol] 9.5 mg/dL 8.5-10.1 [facility] Serum or plasma cholesterol measurement (mass/volume)Ordered By: Clyde Downing on 09-14-2024 Cholesterol [Mass/Vol] 162 mg/dL <200 [facility] Comment on above: <200 mg/dL Desirable 200-240 mg/dL Borderline >240 mg/dL High Risk Serum or plasma creatinine m easurement (mass/volume)Ordered By: Clyde Downing on 09-14-2024 Creatinine [Mass/Vol] 0.90 mg/dL 0.55-1.02 [facility] [place] [facility] Comment on above: The validity of the calculated GFR & GFRAA in patients over 70 years has not been determined. Clinical correlation is essential. Serum or plasma urea nitroge n measurement (mass/volume)Ordered By: Clyde Downing on 09-14-2024 Urea nitrogen [Mass/Vol] 21 mg/dL High 7-18 [facility] Sodium levelOrdered By: Clyde Downing on 09-14-2024 Sodium [Moles/Vol] 140 mmol/L 136-145 [facility] Total proteinOrdered By: Cecy Downing on 09-14-2024 Protein [Mass/Vol] 7.0 g/dL 6.4-8.2 [facility] Triglycerides measurementOrd ered By: Clyde Downing on 09-14-2024 Triglyceride [Mass/Vol] 86 mg/dL <[address] [facility] Comment on above: The drugs N-Acetylcy steine and Metamizole may falsely depress this assay.Serum Triglycerides Reference Interval Normal <150 mg/dL Borderline high 150 - 199 mg/dL High 200 - 499 mg/dL Very High > or = 500 mg/dL Valproate levelOrdered By: Martha Downing on 09-14-2024 Valproic Acid (Depakene) Level < 3 ug/mL Low 50-100 [facility] Valproic Acid (Depakene) Lev cande 09-14-2024 VALPROIC ACID < 3 Low 50-100 [facility] Comment on above: Performed By: #### L 501.080 #### [facility] [address] [place], [address] Very low density lipoprotein (VLDL) cholesterol measurementOrdered By: Clyde Downing on 09-14-2024 VLDL Cholesterol 17 mg/dL 5-40 [facility] D/C Summary- SPon 09-04-2024 D/C Summary- SP [facility] Speech Pathology [facility] [address] [place] [address] / REHABILITATION SERVICES DISCHARGE SUMMARY MR#: [id number] Acct: [id number] Name: POONAM VELOZ Rep #: [id number] : 1940 84 From: Raphael Calvin M.A., [facility] Referring Dr.: Dr. Clyde Downing MD Status: [facility] Insurance: [facility] [id number] SELF PAY INSURANCE Discharge Summary Discharged: Discharge: Poonam Veloz is discharged from speech therapy at [facility] as of 07/30/24. 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 Therapy f ocused on her aphasia and goals were addressing yes/no questions, following directions and automatic speech tasks. She was progressing with all goals. On 07/27/24 towards the end of the therapy session, EMS was called as patient was exhibiting signs of concern ??? right hand shaking, drooling, and difficulty with holding hands equal. She was taken to ER and then transferred to [place]. After her hospital stay, she was going to go through home health for therapy. Please see daily notes and plan of cares for complete details. Thank you for allowing me to participate in the care of this patient. 09/04/24 [id number] CC: Dr. Clyde Downing MD JLM Signed Normal [facility] KEPPRA (LEVETIRACETAM)on KEPPRA 21.8 ug/mL Normal 10.0-40.0 [facility] Comment on above: Result Comment: Perf ormed at: BN - [facility] [address] [id number] [employer]acker: Carlos Cordoba MD, Phone: [phone] Performed By: #### L 505.5000 #### [facility] [address] [place], [address] Basic Metabolic Profile (BMP )on 08-03-2024 BUN/CRE 28.5 RATIO High 10-20 [facility] Comment on above: Performed By: #### L 505.5000 #### [facility] [address] [place], [address] CA,Total 10.0 mg/dL Normal 8.5-10.1 [facility] Comment on above: Performed By: #### L 505.5000 #### [facility] [address] [place], [address] Chloride [Moles/Vol] 105 mmol/L Normal 98-107 [facility] Comment on above: Performed By: #### L 505.5000 #### [facility] [address] [place], [address] CO2 [Moles/Vol] 24.0 mmol/L Normal 21.0-32.0 [facility] Comment on above: Performed By: #### L 505.5000 #### [facility] [address] [place], [address] Creatinine [Mass/Vol] 0.91 mg/dL Normal 0.55-1.02 [facility] [place] Comment on above: Result Comment: The validity of the calculated GFR GFRAA in patients over 70 years has not been determined. Clinical correlation is essential. Performed By: #### L 505.5000 #### [facility] [address] [place], [address] EST GFR - AA 76 mL/min Normal >60 [facility] Comment on above: Result Comment: Afri can Peruvian GFR Calc Performed By: #### L 505.5000 #### [facility] [address] [place], [address] GAP 8 Normal 5-15 [facility] Comment on above: Performed By: #### L 505.5000 #### [facility] [address] [place], [address] GFR/1.73 sq M.predicted among non-blacks MDRD (S/P/Bld) [Vol rate/Area] 63 mL/min/{1.73_m2} Normal >60 [facility] Comment on above: Result Comment: Non- GFR Calc Performed By: #### L 505.5000 #### [facility] [address] [place], [address] Glucose [Mass/Vol] 122 mg/dL High 74-106 [facility] Comment on above: Result Comment: Fast ing Glucose result from 100 to 125 mg/dL suggests IMPAIRED HOMEOSTASIS per A.D.A. criteria. Performed By: #### L 505.5000 #### [facility] [address] [place], [address] Potassium [Moles/Vol] 3.8 mmol/L Normal 3.5-5.1 [facility] [place] [facility] Comment on above: Performed By: #### L 505.5000 #### [facility] [address] [place], [address] Sodium [Moles/Vol] 136 mmol/L Normal 136-145 [facility] Comment on above: Performed By: #### L 505.5000 #### [facility] [address] [place], [address] Urea nitrogen [Mass/Vol] 26 mg/dL High 7-18 [facility] Comment on above: Performed By: #### L 505.5000 #### [facility] [address] [place], [address] CBC W/Diff, Automatedon 11-0 1-2023 Absolute Lymph 1.34 X10 3/uL Normal 0.83-4.51 [facility] Comment on above: Performed By: #### L 505.5000 #### [facility] [address] [place], [address] Absolute Neut 6.6 X10 3/uL Normal 2.0-7.7 [facility] Comment on above: Performed By: #### L 505.5000 #### [facility] [address] [place], [address] Basophils/100 WBC (Bld) 0.6 % Normal 0-[address] [facility] Comment on above: Performed By: #### L 505.5000 #### [facility] [address] [place], [address] Eosinophils/100 WBC (Bld) 1.0 % Normal 0-5 [facility] Comment on above: Performed By: #### L 505.5000 #### [facility] [address] [place], [address] Erythrocyte distribution width (RBC) [Ratio] 14.8 % High 11.6-14.6 [facility] Comment on above: Performed By: #### L 505.5000 #### [facility] [address] [place], [address] Hematocrit (Bld) [Volume fraction] 37.9 % Normal 37-47 [facility] Comment on above: Performed By: #### L 505.5000 #### [facility] [address] [place], [address] Hemoglobin (Bld) [Mass/Vol] 12.3 g/dL Normal 12.0-15. 0 [facility] Comment on above: Performed By: #### L 505.5000 #### [facility] [address] [place], [address] IG% 0.500 Normal 0.0-0.9 [facility] Comment on above: Result Comment: IG% - Immature Granulocytes (promyelocytes, myelocytes and metamyelocytes) > 1% indicates that a LEFT SHIFT is Present. Performed By: #### L 505.5000 #### [facility] [address] [place], [address] Lymphocytes/100 WBC (Bld) 15.4 % Low 19-41 [facility] Comment on above: Performed By: #### L 505.5000 #### [facility] [address] [place], [address] MCH (RBC) [Entitic mass] 27.1 pg Normal 27.0-32.0 [facility] Comment on above: Performed By: #### L 505.5000 #### [facility] [address] [place], [address] MCHC (RBC) [Mass/Vol] 32.5 g/dL Normal 32-36 [facility] [place] Comment on above: Performed By: #### L 505.5000 #### [facility] [address] [place], [address] MCV (RBC) [Entitic vol] 83.5 fL Normal 81-99 [facility] Comment on above: Performed By: #### L 505.5000 #### [facility] [address] [place], [address] Monocytes/100 WBC (Bld) 6.8 % Normal 0-10 [facility] Comment on above: Performed By: #### L 505.5000 #### [facility] [address] [place], [address] Neutrophils/100 WBC (Bld) 75.7 % High 47-70 [facility] Comment on above: Performed By: #### L 505.5000 #### [facility] [address] [place], [address] Nucleated RBC (Bld) [#/Vol] 0 10*3/uL Normal 0-5 [facility] Comment on above: Performed By: #### L 505.5000 #### [facility] [address] [place], [address] Platelet mean volume (Bld) [Entitic vol] 9.1 fL Normal 6.2-12.0 [facility] Comment on above: Performed By: #### L 505.5000 #### [facility] [address] [place], [address] Platelets (Bld) [#/Vol] 429 10*3/uL Normal 150-450 [facility] Comment on above: Performed By: #### L 505.5000 #### [facility] [address] [place], [address] RBC (Bld) [#/Vol] 4.54 10*6/uL Normal 4.2-5.4 [facility] Comment on above: Performed By: #### L 505.5000 #### [facility] [address] [place], [address] RDW SD 44.9 fl High 35.1-43.9 [facility] Comment on above: Performed By: #### L 505.5000 #### [facility] [address] [place], [address] WBC (Bld) [#/Vol] 8.7 10*3/uL Normal 4.4-11.0 [facility] Comment on above: Performed By: #### L 505.5000 #### [facility] [address] [place], [address] CBC,PLATELETSon 07-30-2024 Erythrocyte distribution width (RBC) [Ratio] 14.6 % 10.8 - 14.9 % [facility] Hematocrit (Bld) [Volume fraction] 34.4 % Low 34.9 - 44.3 % [facility] Hemoglobin (Bld) [Mass/Vol] 11.0 g/dL Low 11.4 - 15.2 g/dL [facility] Interpretation and review of laboratory results Abnormal [facility] MCH (RBC) [Entitic mass] 26.8 pg 25. 9 - 33.9 pg [facility] MCHC (RBC) [Mass/Vol] 32.0 g/dL 31.4 - 35.9 g/dL [facility] MCV (RBC) [Entitic vol] 83.9 fL 79.6 - 97.7 fL [facility] Platelet mean volume (Bld) [Entitic vol] 8.9 fL 8.5 - 12.2 fL [facility] Platelets (Bld) [#/Vol] 332 10*3/uL 150 - 393 K/uL [facility] RBC (Bld) [#/Vol] 4.10 10*6/uL [facility] WBC (Bld) [#/Vol] 7.34 10*3/uL 3.99 - 11.19 K/uL [facility] Hematocrit (Bld) [Volume fraction] 34.4 % Low 34.9-44.3 [facility] Comment on above: Performed By: #### C HM7 #### [facility] (DEFAULT) [address] [address] Hemoglobin (Bld) [Mass/Vol] 11.0 g/dL Low 11.4-15. 2 [facility] Comment on above: Performed By: #### C HM7 #### [facility] (DEFAULT) [address] [place] [address] MCV (RBC) [Entitic vol] 83.9 fL Normal 79.6-97.7 [facility] Comment on above: Performed By: #### C HM7 #### [facility] (DEFAULT) [address] [address] Mean Cell Hgb 26.8 pg Normal 25.9-33.9 [facility] Comment on above: Performed By: #### C HM7 #### [facility] (DEFAULT) [address] [place] [address] Mean Cell Hgb Conc 32.0 g/dL Normal 31.4-35.9 [facility] Comment on above: Performed By: #### C HM7 #### [facility] (DEFAULT) [address] [place] [address] Platelet mean volume (Bld) [Entitic vol] 8.9 fL Normal 8.5-12.2 [facility] Comment on above: Performed By: #### C HM7 #### [facility] (DEFAULT) [address] [place] [address] Platelets (Bld) [#/Vol] 332 10*3/uL Normal 150-393 [facility] Comment on above: Performed By: #### C HM7 #### [facility] (DEFAULT) [address] [place] [address] RBC (Bld) [#/Vol] 4.10 10*6/uL Normal 3.91-5.04 [facility] Comment on above: Performed By: #### C HM7 #### [facility] (DEFAULT) [address] [place] [address] RBC Distribution 14.6 % Normal 10.8-14.9 [facility] Comment on above: Performed By: #### C HM7 #### [facility] (DEFAULT) [address] [place] [address] WBC (Bld) [#/Vol] 7.34 10*3/uL Normal 3.99-11.19 [facility] Comment on above: Performed By: #### C HM7 #### [facility] (DEFAULT) [address] [place] [address] CHEM 7 (LYTES,BUN,CREA,GLUC) on 07-30-2024 Anion gap [Moles/Vol] 11 mmol/L 7 - 17 mmol/L [facility] Chloride [Moles/Vol] 107 mmol/L 98 - 10 8 mmol/L [facility] CO2 [Moles/Vol] 23 mmol/L 21 - 31 mmol/L [facility] Creatinine [Mass/Vol] 0.64 mg/dL 0.50 - 1.20 mg/dL [facility] eGFR, CKD-EPI, Female 89 - PINF [facility] Comment on above: Reported eGFR is bas ed on the CKD-EPI 2020 equation using creatinine, age, and sex. Glucose [Mass/Vol] 98 mg/dL 70 - 99 mg/dL [facility] Osmolality Calc [Osmolality] 288 [facility] Potassium [Moles/Vol] 4.2 mmol/L 3.5 - 5.0 mmol/L [facility] Sodium [Moles/Vol] 137 mmol/L 135 - 145 mmol/L [facility] Urea nitrogen [Mass/Vol] 13 mg/dL 7 - 25 mg/dL [facility] Urea nitrogen/Creatinine [Mass ratio] 20 mg/mg [facility] Anion gap [Moles/Vol] 11 mmol/L Normal 7-17 [facility] Comment on above: Performed By: #### C HM7 #### [facility] (DEFAULT) [address] [place] [address] Chloride [Moles/Vol] 107 mmol/L Normal 98-108 [facility] Comment on above: Performed By: #### C HM7 #### [facility] (DEFAULT) [address] [place] [address] CO2 [Moles/Vol] 23 mmol/L Normal 21-31 [facility] Comment on above: Performed By: #### C HM7 #### [facility] (DEFAULT) [address] [address] Creatinine [Mass/Vol] 0.64 mg/dL Normal 0.50-1.20 [facility] Comment on above: Performed By: #### C HM7 #### [facility] (DEFAULT) [address] [place] [address] GFR/1.73 sq M.predicted among non-blacks MDRD (S/P/Bld) [Vol rate/Area] 89 mL/min/{1.73_m2} Normal >=60 [facility] Comment on above: Result Comment: Repo rted eGFR is based on the CKD-EPI 2020 equation using creatinine, age, and sex. Performed By: #### C HM7 #### [facility] (DEFAULT) [address] [place] [address]691 Glucose [Mass/Vol] 98 mg/dL Normal 70-99 [facility] Comment on above: Performed By: #### C HM7 #### [facility] (DEFAULT) [address] [place] [address] 89975 Osmolality [Osmolality] 288 mosm/kg Normal 278-305 [facility] Comment on above: Performed By: #### C HM7 #### [facility] (DEFAULT) [address] [place] [address] 68810 Potassium [Moles/Vol] 4.2 mmol/L Normal 3.5-5.0 [facility] Comment on above: Performed By: #### C HM7 #### [facility] (DEFAULT) [address] [place] [address] 23397 Sodium [Moles/Vol] 137 mmol/L Normal 135-145 [facility] Comment on above: Performed By: #### C HM7 #### [facility] (DEFAULT) [address] [place] [address] 59461 Urea nitrogen [Mass/Vol] 13 mg/dL Normal 7-25 [facility] Comment on above: Performed By: #### C HM7 #### [facility] (DEFAULT) [address] [address] Urea nitrogen/Creatinine [Mass ratio] 20 mg/mg Normal [facility] Comment on above: Performed By: #### C HM7 #### [facility] (DEFAULT) [address] [place] [address] 96995 EXTRA MICROon 07-30-2024 [facility] CBC,PLATELETSon 07-29-2024 Erythrocyte distribution width (RBC) [Ratio] 14.7 % 10.8 - 14.9 % [facility] Hematocrit (Bld) [Volume fraction] 34.8 % Low 34.9 - 44.3 % [facility] Hemoglobin (Bld) [Mass/Vol] 11.0 g/dL Low 11.4 - 15.2 g/dL [facility] Interpretation and review of laboratory results Abnormal [facility] MCH (RBC) [Entitic mass] 26.8 pg 25. 9 - 33.9 pg [facility] MCHC (RBC) [Mass/Vol] 31.6 g/dL 31.4 - 35.9 g/dL [facility] MCV (RBC) [Entitic vol] 84.9 fL 79.6 - 97.7 fL [facility] Platelet mean volume (Bld) [Entitic vol] 8.8 fL 8.5 - 12.2 fL [facility] Platelets (Bld) [#/Vol] 318 10*3/uL 150 - 393 K/uL [facility] RBC (Bld) [#/Vol] 4.10 10*6/uL [facility] WBC (Bld) [#/Vol] 8.38 10*3/uL 3.99 - 11.19 K/uL [facility] Hematocrit (Bld) [Volume fraction] 34.8 % Low 34.9-44.3 [facility] Comment on above: Performed By: #### H [facility] #### [facility] (DEFAULT) [address] [place] [address] 81732 Hemoglobin (Bld) [Mass/Vol] 11.0 g/dL Low 11.4-15. 2 [facility] Comment on above: Performed By: #### H [facility] #### [facility] (DEFAULT) [address] [place] [address]019 MCV (RBC) [Entitic vol] 84.9 fL Normal 79.6-97.7 [facility] Comment on above: Performed By: #### H EMOGC #### [facility] (DEFAULT) [address] [address] Mean Cell Hgb 26.8 pg Normal 25.9-33.9 [facility] Comment on above: Performed By: #### H EMOGC #### [facility] (DEFAULT) [address] [address] Mean Cell Hgb Conc 31.6 g/dL Normal 31.4-35.9 [facility] Comment on above: Performed By: #### H EMO #### [facility] (DEFAULT) [address] [address] Platelet mean volume (Bld) [Entitic vol] 8.8 fL Normal 8.5-12.2 [facility] Comment on above: Performed By: #### H EMO #### [facility] (DEFAULT) [address] [address] Platelets (Bld) [#/Vol] 318 10*3/uL Normal 150-393 [facility] Comment on above: Performed By: #### H EMO #### [facility] (DEFAULT) [address] [address] RBC (Bld) [#/Vol] 4.10 10*6/uL Normal 3.91-5.04 [facility] Comment on above: Performed By: #### H EMOGC #### [facility] (DEFAULT) [address] [address] RBC Distribution 14.7 % Normal 10.8-14.9 [facility] Comment on above: Performed By: #### H EMOGC #### [facility] (DEFAULT) [address] [address] WBC (Bld) [#/Vol] 8.38 10*3/uL Normal 3.99-11.19 [facility] Comment on above: Performed By: #### H [facility] #### [facility] (DEFAULT) [address] [place] [address] CHEM 7 (LYTES,BUN,CREA,GLUC) on 07-29-2024 Anion gap [Moles/Vol] 12 mmol/L 7 - 17 mmol/L [facility] Chloride [Moles/Vol] 105 mmol/L 98 - 10 8 mmol/L [facility] CO2 [Moles/Vol] 23 mmol/L 21 - 31 mmol/L [facility] Creatinine [Mass/Vol] 0.64 mg/dL 0.50 - 1.20 mg/dL [facility] eGFR, CKD-EPI, Female 89 - PINF [facility] Comment on above: Reported eGFR is bas ed on the CKD-EPI 2020 equation using creatinine, age, and sex. Glucose [Mass/Vol] 106 mg/dL High 70 - 99 mg/dL [facility] Interpretation and review of laboratory results Abnormal [facility] Osmolality Calc [Osmolality] 286 [facility] Potassium [Moles/Vol] 3.4 mmol/L Low 3.5 - 5.0 mmol/L [facility] Sodium [Moles/Vol] 137 mmol/L 135 - 145 mmol/L [facility] Urea nitrogen [Mass/Vol] 12 mg/dL 7 - 25 mg/dL [facility] Urea nitrogen/Creatinine [Mass ratio] 19 mg/mg [facility] Anion gap [Moles/Vol] 12 mmol/L Normal 7-17 [facility] Comment on above: Performed By: #### L [email or web address] #### [facility] (DEFAULT) [address] [place] [address] Chloride [Moles/Vol] 105 mmol/L Normal 98-108 [facility] Comment on above: Performed By: #### L ABHSTI1 #### [facility] (DEFAULT) [address] [place] [address] CO2 [Moles/Vol] 23 mmol/L Normal 21-31 [facility] Comment on above: Performed By: #### L DELFINTI1 #### [facility] (DEFAULT) [address] [address] Creatinine [Mass/Vol] 0.64 mg/dL Normal 0.50-1.20 [facility] Comment on above: Performed By: #### L DELFINTI1 #### [facility] (DEFAULT) [address] [address] GFR/1.73 sq M.predicted among non-blacks MDRD (S/P/Bld) [Vol rate/Area] 89 mL/min/{1.73_m2} Normal >=60 [facility] Comment on above: Result Comment: Repo rted eGFR is based on the CKD-EPI 2020 equation using creatinine, age, and sex. Performed By: #### L URBANO1 #### [facility] (DEFAULT) [address] [address] Glucose [Mass/Vol] 106 mg/dL High 70-99 [facility] Comment on above: Performed By: #### L DELFINTI1 #### [facility] (DEFAULT) [address] [address] Osmolality [Osmolality] 286 mosm/kg Normal 278-305 [facility] Comment on above: Performed By: #### L DELFINTI1 #### [facility] (DEFAULT) [address] [address] Potassium [Moles/Vol] 3.4 mmol/L Low 3.5-5.0 [facility] Comment on above: Performed By: #### L DELFINTI1 #### [facility] (DEFAULT) [address] [address] Sodium [Moles/Vol] 137 mmol/L Normal 135-145 [facility] Comment on above: Performed By: #### L DELFINTI1 #### [facility] (DEFAULT) [address] [place] [address] Urea nitrogen [Mass/Vol] 12 mg/dL Normal 04-26 [facility] Comment on above: Performed By: #### L [email or web address] #### [facility] (DEFAULT) [address] [place] [address] Urea nitrogen/Creatinine [Mass ratio] 19 mg/mg Normal [facility] Comment on above: Performed By: #### L [email or web address] #### [facility] (DEFAULT) [address] [place] [address] GENERAL PROCEDUREon 07-29-20 Matty Kaminski MD - 07/29/2024 8:31 PM EDT Long-Term EEG Procedure Report: Study Start Time: 07/28/24: 17:43 Study End Time: 07/29/24: 14:04 History: 83F with 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 Following her stroke, she had residual speech deficits. She was at her speech therapy appointment on 07/27 when she was noted to have difficulty using her right hand prompting presentation to [facility] as a code stroke. There, symptoms were improving so she was a no go for thrombolytics. While undergoing MRI, she exhibited rhythmic jerking of the right hand and decline in mentation. Indication: To evaluate for possible seizures. Technical Description: This is a 21-channel digital EEG recording with time-locked video and single-channel electrocardiogram. Electrodes are placed according to the 10 to 20 International System. The patient was monitored continuously by EEG technicians with EEG reviewed intermittently and annotations made to the EEG record every two hours. Portions of this record are reviewed using bandpass filters of 1 to 70 Hz and sensitivity of 7mV/mm. EEG Findings Background: There is an asymmetric background recorded from the onset of the study. The background is recorded best over the right hemisphere where there is a 10Hz medium to low amplitude PDR. The anterior background is alpha mixed with some theta as well as faster frequencies. Over the left hemisphere there a more intermittent 8-9Hz PDR. The anterior activity is more continuous 7-8Hz theta mixed with faster frequencies. Sleep and wake differentiation is recorded and NREM sleep is recorded. Stage II sleep with symmetric VSTs and sleep spindles. Focal Asymmetry: yes, continuous left hemispheric slwoing Reactivity: reactive to voice Rhythmic or Periodic Patterns: no Sporadic ED's: no Brief Rhythmic Discharges: no Electrographic seizure: no Hyperventilation: no Photic stimulation: no Other Clinical Events: none Impression: This is an abnormal 1 Day VideoEEG due to the presence of continuous left hemispheric slowing indicative of an underlying structural or physiologic abnormality in this region. No clinical events or electrographic seizures recorded, clinical correlation recommended. Matty Kaminski MD Police Aide, Department of Neurology, Epilepsy Section [facility] Radiology Study observation (narrative) [facility] SEDIMENTATION RATE, AUTOMATE Don 07-29-2024 ESR (Bld) [Velocity] [facility] Comment on above: Not Measured [facility] ESR Westergren Normal [facility] Comment on above: Result Comment: Not Measured Performed By: #### E SR #### [facility] (DEFAULT) [address] [place] [address] URINALYSIS REFLEX TO CULTURE PERFORMABLEOrdered By: Gerardo Rodriguez on 07-29-2024 Appearance (U) Cloudy Abnormal Clear [facility] Bacteria LM Ql (Urine sed) PRESENT Abnormal ABSENT [facility] Color (U) Yellow Yellow [facility] Epithelial cells.squamous LM Ql (Urine sed) 0-2/hpf 0-2/hpf, 3-5/hpf = 1+ [facility] Glucose Test strip (U) [Mass/Vol] Negative Negative [facility] Interpretation and review of laboratory results [facility] Ketones (U) [Mass/Vol] Negative Negative [facility] Leukocyte esterase Test strip Ql (U) Small Abnormal Negative [facility] Nitrite Ql (U) Negative Negative [facility] pH (U) 6.0 [pH] 5.0 - 7.0 [facility] Protein (U) [Mass/Vol] Negative Negative [facility] RBC (U) [#/Vol] Small Abnormal Negative [facility] RBC LM.HPF (Urine sed) [#/Area] 3-5 Abnormal [facility] Specific gravity (U) [Rel density] 1.016 1.001 - 1.035 [facility] Urobilinogen (U) [Mass/Vol] 1.0 E.U./dL 0.2 E.U/dL, 1.0 E.U/dL [facility] WBC LM.HPF (Urine sed) [#/Area] 0 - 5 [facility] URINALYSIS REFLEX TO CULTURE PERFORMABLEon 07-29-2024 Appearance (U) Cloudy Abnormal Clear [facility] Comment on above: Order Comment: For i ndwelling catheters, specimen collection is acceptable on catheter day 1 and 2 only. ? Performed By: #### U [id number] #### [facility] (DEFAULT) [address] [place] [address] Bacteria PRESENT Abnormal ABSENT [facility] Comment on above: Order Comment: For i ndwelling catheters, specimen collection is acceptable on catheter day 1 and 2 only. ? Performed By: #### U [id number] #### [facility] (DEFAULT) [address] [place] [address] Blood Urine Small Abnormal Negative [facility] Comment on above: Order Comment: For i ndwelling catheters, specimen collection is acceptable on catheter day 1 and 2 only. ? Performed By: #### U [id number] #### [facility] (DEFAULT) [address] [place] [address] Color (U) Yellow Normal Yellow [facility] Comment on above: Order Comment: For i ndwelling catheters, specimen collection is acceptable on catheter day 1 and 2 only. ? Performed By: #### U [id number] #### [facility] (DEFAULT) [address] [place] [address] Glucose Ql (U) Negative Normal Negative [facility] Comment on above: Order Comment: For i ndwelling catheters, specimen collection is acceptable on catheter day 1 and 2 only. ? Performed By: #### U [id number] #### [facility] (DEFAULT) [address] [place] [address] Ketones Ql (U) Negative Normal Negative [facility] Comment on above: Order Comment: For i ndwelling catheters, specimen collection is acceptable on catheter day 1 and 2 only. ? Performed By: #### U [id number] #### [facility] (DEFAULT) [address] [place] [address] Leukocyte esterase Test strip Ql (U) Small Abnormal Negative [facility] Comment on above: Order Comment: For i ndwelling catheters, specimen collection is acceptable on catheter day 1 and 2 only. ? Performed By: #### U [id number] #### [facility] (DEFAULT) [address] [place] [address] Nitrites Urine Negative Normal Negative [facility] Comment on above: Order Comment: For i ndwelling catheters, specimen collection is acceptable on catheter day 1 and 2 only. ? Performed By: #### U [id number] #### [facility] (DEFAULT) [address] [place] [address] pH (U) 6.0 [pH] Normal 5.0-7.0 [facility] Comment on above: Order Comment: For i ndwelling catheters, specimen collection is acceptable on catheter day 1 and 2 only. ? Performed By: #### U [id number] #### [facility] (DEFAULT) [address] [place] [address] Protein Urine Negative Normal Negative [facility] Comment on above: Order Comment: For i ndwelling catheters, specimen collection is acceptable on catheter day 1 and 2 only. ? Performed By: #### U [id number] #### [facility] (DEFAULT) [address] [place] [address] RBC Urine 3-5 Abnormal 0-2 [facility] Comment on above: Order Comment: For i ndwelling catheters, specimen collection is acceptable on catheter day 1 and 2 only. ? Performed By: #### U [id number] #### [facility] (DEFAULT) [address] [place] [address] Specific [place] Urine 1.016 Normal 1.001 -1.03 5 [facility] Comment on above: Order Comment: For i ndwelling catheters, specimen collection is acceptable on catheter day 1 and 2 only. ? Performed By: #### U [id number] #### [facility] (DEFAULT) [address] [place] [address] Squamous/Epithelial Cells 0-2/hpf Normal 0- 2/hpf, 3-5/hpf = 1+ [facility] Comment on above: Order Comment: For i ndwelling catheters, specimen collection is acceptable on catheter day 1 and 2 only. ? Performed By: #### U [id number] #### [facility] (DEFAULT) [address] [place] [address] Urobilinogen Urine 1.0 E.U./dL Normal 0.2 E.U/dL, 1.0 E.U/dL [facility] Comment on above: Order Comment: For i ndwelling catheters, specimen collection is acceptable on catheter day 1 and 2 only. ? Performed By: #### U [id number] #### [facility] (DEFAULT) [address] [place] [address] WBC Urine 0 - 5 Normal 0 - 5 [facility] Comment on above: Order Comment: For i ndwelling catheters, specimen collection is acceptable on catheter day 1 and 2 only. ? Performed By: #### U [id number] #### [facility] (DEFAULT) [address] [place] [address] C REACTIVE PROTEINon 024 CRP High sensitivity method [Mass/Vol] 45.67 mg/L High NINF - 10.00 mg/L [facility] Interpretation and review of laboratory results Abnormal [facility] CRP [Mass/Vol] 45.67 mg/L High <10.00 [facility] Comment on above: Performed By: #### C HM7 #### [facility] (DEFAULT) [address] [place] [address] CALCIUMon 07-28-2024 Calcium [Mass/Vol] 9.2 mg/dL 8.6 - 10. 5 mg/dL [facility] Calcium [Mass/Vol] 9.2 mg/dL Normal 8.6-10.5 [facility] Comment on above: Performed By: #### C HM7 #### [facility] (DEFAULT) [address] [place] [address] CBC,PLATELETSon 07-28-2024 Erythrocyte distribution width (RBC) [Ratio] 14.8 % 10.8 - 14.9 % [facility] Hematocrit (Bld) [Volume fraction] 33.8 % Low 34.9 - 44.3 % [facility] Hemoglobin (Bld) [Mass/Vol] 11.1 g/dL Low 11.4 - 15.2 g/dL [facility] Interpretation and review of laboratory results Abnormal [facility] MCH (RBC) [Entitic mass] 27.0 pg 25. 9 - 33.9 pg [facility] MCHC (RBC) [Mass/Vol] 32.8 g/dL 31.4 - 35.9 g/dL [facility] MCV (RBC) [Entitic vol] 82.2 fL 79.6 - 97.7 fL [facility] Platelet mean volume (Bld) [Entitic vol] 9.4 fL 8.5 - 12.2 fL [facility] Platelets (Bld) [#/Vol] 318 10*3/uL 150 - 393 K/uL [facility] RBC (Bld) [#/Vol] 4.11 10*6/uL [facility] WBC (Bld) [#/Vol] 9.92 10*3/uL 3.99 - 11.19 K/uL [facility] Hematocrit (Bld) [Volume fraction] 33.8 % Low 34.9-44.3 [facility] Comment on above: Performed By: #### L [email or web address] #### [facility] (DEFAULT) [address] [place] [address] Hemoglobin (Bld) [Mass/Vol] 11.1 g/dL Low 11.4-15. 2 [facility] Comment on above: Performed By: #### L [email or web address] #### [facility] (DEFAULT) [address] [place] [address] MCV (RBC) [Entitic vol] 82.2 fL Normal 79.6-97.7 [facility] Comment on above: Performed By: #### L [id number] #### [facility] (DEFAULT) [address] [place] [address] Mean Cell Hgb 27.0 pg Normal 25.9-33.9 [facility] Comment on above: Performed By: #### L [email or web address] #### [facility] (DEFAULT) [address] [place] [address] Mean Cell Hgb Conc 32.8 g/dL Normal 31.4-35.9 [facility] Comment on above: Performed By: #### L [email or web address] #### [facility] (DEFAULT) [address] [place] [address] Platelet mean volume (Bld) [Entitic vol] 9.4 fL Normal 8.5-12.2 [facility] Comment on above: Performed By: #### L [email or web address] #### [facility] (DEFAULT) [address] [place] [address] Platelets (Bld) [#/Vol] 318 10*3/uL Normal 150-393 [facility] Comment on above: Performed By: #### L [email or web address] #### [facility] (DEFAULT) [address] [place] [address] RBC (Bld) [#/Vol] 4.11 10*6/uL Normal 3.91-5.04 [facility] Comment on above: Performed By: #### L [email or web address] #### [facility] (DEFAULT) [address] [place] [address] RBC Distribution 14.8 % Normal 10.8-14.9 [facility] Comment on above: Performed By: #### L ABHSTI1 #### [facility] (DEFAULT) [address] [place] [address] WBC (Bld) [#/Vol] 9.92 10*3/uL Normal 3.99-11.19 [facility] Comment on above: Performed By: #### L ABHSTI1 #### [facility] (DEFAULT) [address] [place] [address] CHEM 7 (LYTES,BUN,CREA,GLUC) on 07-28-2024 Anion gap [Moles/Vol] 13 mmol/L 7 - 17 mmol/L [facility] Chloride [Moles/Vol] 104 mmol/L 98 - 10 8 mmol/L [facility] CO2 [Moles/Vol] 24 mmol/L 21 - 31 mmol/L [facility] Creatinine [Mass/Vol] 0.70 mg/dL 0.50 - 1.20 mg/dL [facility] eGFR, CKD-EPI, Female 87 - PINF [facility] Comment on above: Reported eGFR is bas ed on the CKD-EPI 2020 equation using creatinine, age, and sex. Glucose [Mass/Vol] 104 mg/dL High 70 - 99 mg/dL [facility] Interpretation and review of laboratory results Abnormal [facility] Osmolality Calc [Osmolality] 289 [facility] Potassium [Moles/Vol] 4.3 mmol/L 3.5 - 5.0 mmol/L [facility] Comment on above: Specimen slightly he molyzed. Potassium results may be falsey elevated by more than 0.5 mmol/L. Consider recollection. Sodium [Moles/Vol] 137 mmol/L 135 - 145 mmol/L [facility] Urea nitrogen [Mass/Vol] 15 mg/dL 7 - 25 mg/dL [facility] Urea nitrogen/Creatinine [Mass ratio] 21 mg/mg [facility] Anion gap [Moles/Vol] 13 mmol/L Normal 7-17 [facility] Comment on above: Performed By: #### C HM7 #### [facility] (DEFAULT) [address] [place] [address] Chloride [Moles/Vol] 104 mmol/L Normal 98-108 [facility] Comment on above: Performed By: #### C HM7 #### [facility] (DEFAULT) [address] [place] [address] CO2 [Moles/Vol] 24 mmol/L Normal 21-31 [facility] Comment on above: Performed By: #### C HM7 #### [facility] (DEFAULT) [address] [place] [address] Creatinine [Mass/Vol] 0.70 mg/dL Normal 0.50-1.20 [facility] Comment on above: Performed By: #### C HM7 #### [facility] (DEFAULT) [address] [place] [address] GFR/1.73 sq M.predicted among non-blacks MDRD (S/P/Bld) [Vol rate/Area] 87 mL/min/{1.73_m2} Normal >=60 [facility] Comment on above: Result Comment: Repo rted eGFR is based on the CKD-EPI 2020 equation using creatinine, age, and sex. Performed By: #### C HM7 #### [facility] [facility] (DEFAULT) [address] [place] [address] Glucose [Mass/Vol] 104 mg/dL High 70-99 [facility] Comment on above: Performed By: #### C HM7 #### U [facility] (DEFAULT) [address] [place] [address] Osmolality [Osmolality] 289 mosm/kg Normal 278-305 [facility] Comment on above: Performed By: #### C HM7 #### U [facility] (DEFAULT) [address] [place] [address] Potassium [Moles/Vol] 4.3 mmol/L Normal 3.5-5.0 [facility] Comment on above: Result Comment: Spec imen slightly hemolyzed. Potassium results may be falsey elevated by more than 0.5 mmol/L. Consider recollection. Performed By: #### C HM7 #### [facility] (DEFAULT) [address] [place] [address] Sodium [Moles/Vol] 137 mmol/L Normal 135-145 [facility] Comment on above: Performed By: #### C HM7 #### U [facility] (DEFAULT) [address] [place] [address] Urea nitrogen [Mass/Vol] 15 mg/dL Normal 7-25 [facility] Comment on above: Performed By: #### C HM7 #### U [facility] (DEFAULT) [address] [place] [address] Urea nitrogen/Creatinine [Mass ratio] 21 mg/mg Normal [facility] Comment on above: Performed By: #### C HM7 #### [facility] (DEFAULT) [address] [place] [address] Cardiac echo study Procedure Ordered By: Alva Gibbs on 07-28-2024 Ao ASC index 2.28 cm/m2 [facility] Work Phone: Ao peak aria 1.33 m/s [facility] Work Phone: Ao SOV index 1.80 cm/m2 [facility] Work Phone: Ao STJ index 2.07 cm/m2 [facility] Work Phone: Ao VTI 28.50 cm [facility] Work Phone: Ascending aorta 3.70 cm [facility] Work Phone: AV LVOT peak gradient 6 mmHg [facility] Work Phone: AV mean gradient 5 mmHg [facility] Work Phone: AV peak gradient 7 mmHG [facility] Work Phone: AV valve area 2.89 cm2 [facility] Work Phone: AV Velocity Ratio 0.91 [facility] Work Phone: CHEYENNE (continuity Vmax) 3.15 cm2 [facility] Work Phone: CHEYENNE (continuity VTI) 2.89 cm2 [facility] Work Phone: CHEYENNE index (continuity Vmax) 1.94 m/s [facility] Work Phone: CHEYENNE index (continuity VTI) 1.78 cm2/m2 [facility] Work Phone: Avg e' pk aria 0.07 m/s [facility] Work Phone: Avg E/e' ratio 11.26 [facility] Work Phone: Body surface area Derived from formula 1.62 m2 [facility] Work Phone: BP EF 68 % [facility] Work Phone: DI (Vmax) 0.91 [facility] Work Phone: DI (VTI) 0.84 m/2 [facility] Work Phone: E wave decelartion time 309.00 msec [facility] Work Phone: e' lateral pk aria 0.0774 m/s [facility] Work Phone: e' lateral pk aria 0.08 m/s [facility] Work Phone: e' septal pk aria 0.0704 m/s [facility] Work Phone: e' septal pk aria 0.07 m/s [facility] Work Phone: E/A ratio 0.82 [facility] Work Phone: E/e' lateral ratio 10.72 [facility] Work Phone: E/e' septal ratio 11.79 [facility] Work Phone: EF SP 2CH 62 [facility] Work Phone: EF SP 4CH 73 [facility] Work Phone: EST RAP 3 mmHg [facility] Work Phone: EST RVSP 32 mmHg [facility] Work Phone: FS 36 % [facility] Work Phone: IVC ostium 1.66 cm [facility] Work Phone: IVS 0.89 cm [facility] Work Phone: LA AREA 2CH 14.20 cm2 [facility] Work Phone: LA area 4CH 13.40 cm2 [facility] Work Phone: LA ESV BP (MOD) 31 mL [facility] Work Phone: LA ESV BP (MOD) index 19 mL/m2 [facility] Work Phone: LA ESV SP 2CH (MOD) 35 mL [facility] Work Phone: LA ESV SP 4CH (MOD) 27 mL [facility] Work Phone: LA size 2.90 cm [facility] Work Phone: LEFT ATRIAL DIAMETER INDEX 1.79 cm/m2 [facility] Work Phone: LV EDV BP 57 mL [facility] Work Phone: [phone] LV EDV SP 2CH 50 mL [facility] Work Phone: LV EDV SP 4CH 62 mL [facility] Work Phone: LV ESV BP 18 mL [facility] Work Phone: LV ESV SP 2CH 19 mL [facility] Work Phone: [phone] LV ESV SP 4CH 17 mL [facility] Work Phone: LV mass 60.86 g [facility] Work Phone: LV Mass Index 37.6 g/m2 [facility] Work Phone: LV RWT 0.57 [facility] Work Phone: LV stroke volume BP (ml) 39 mL [facility] Work Phone: LV stroke volume index BP 24.07 mL/m2 [facility] Work Phone: LVIDD 2.87 cm [facility] Work Phone: LVIDS 1.84 cm [facility] Work Phone: LVOT area 3.46 cm2 [facility] Work Phone: LVOT diameter 2.10 cm [facility] Work Phone: LVOT peak aria 1.21 m/s [facility] Work Phone: LVOT peak VTI 23.80 cm [facility] Work Phone: LVOT stroke volume 82 cm3 [facility] Work Phone: LVOT stroke volume index 50.86 ml/m2 [facility] Work Phone: MV pk A aria 1.01 m/s [facility] Work Phone: MV pk E aria 0.83 m/s [facility] Work Phone: OSU AV VTI RATIO PRE STRESS 0.84 [facility] Work Phone: OSU ECHO LV BIPLANE SYSTOLIC VOLUME INDEX 11.11 mL/m2 [facility] Work Phone: OSU ECHO LV BP DIASTOLIC VOLUME INDEX 35.19 mL/m2 [facility] Work Phone: PV peak gradient 4 mmHg [facility] Work Phone: PV PK ARIA 1.03 m/s [facility] Work Phone: PW 0.82 cm [facility] Work Phone: RA area 4CH (MOD) 8.76 cm2 [facility] Work Phone: RA vol index 4CH (MOD) 9.26 mL/m2 [facility] Work Phone: Right atrium volume 4 chamber method of disks 15 mL [facility] Work Phone: RV Area diastolic 11.00 cm2 [facility] Work Phone: RV Area systolic 5.81 cm2 [facility] Work Phone: RV basal diam 2.75 cm [facility] Work Phone: RV Fractional area change 47.2 % [facility] Work Phone: RV long diam 6.52 cm [facility] Work Phone: RV mid diam 2.09 cm [facility] Work Phone: RV S' 9.98 cm/s [facility] Work Phone: RVOT peak gradient 2 mmHg [facility] Work Phone: RVOT peak aria 0.69 m/s [facility] Work Phone: Sinus 2.91 cm [facility] Work Phone: STJ 3.36 cm [facility] Work Phone: Stroke Volume 82 cm/mL [facility] Work Phone: Stroke volume index 51 [facility] Work Phone: TAPSE 1.90 cm [facility] Work Phone: TR pk grad 29 mmHg [facility] Work Phone: TR pk aria 2.70 m/s [facility] Work Phone: TV rest pulmonary artery pressure 32.16 mmHg [facility] Work Phone: [facility] Work Phone: Cardiac echo study Procedure on 07-28-2024 Left Ventricle: Chamber size is normal. Normal wall thickness. Normal global systolic function. Regional wall motion is normal. Ejection fraction is normal (65 - 70%). Diastolic function is normal. Right Ventricle: Chamber size is normal. Systolic function is normal. Left Atrium: Chamber size is normal. Aortic Valve: Trileaflet valve. Leaflet sclerosis and cusp sclerosis visualized. Leaflet mobility is normal. No regurgitation. No stenosis. Mitral Valve: Normal appearing leaflets. Leaflet mobility is normal. No regurgitation. No valve stenosis. Tricuspid Valve: Normal leaflets. Leaflet mobility is normal. Trace regurgitation. No stenosis. Normal left ventricular chamber size. Normal left ventricular systolic function. Normal regional wall motion. Estimated EF 65-70%. No echocardiographic evidence of diastolic dysfunction. Normal right ventricular chamber size and systolic function. No hemodynamically significant valvular disease. Trace TR. Calculated RVSP is 32 mmHg No pericardial effusion. Mildly dilated ascending aorta (3.7 cms). Left Ventricle Chamber size is normal. Normal wall thickness. Normal global systolic function. Regional wall motion is normal. Ejection fraction is normal (65 - 70%). Diastolic function is normal. Right Ventricle Chamber size is normal. Systolic function is normal. Estimated right ventricular systolic pressure is 32 mmHg. Left Atrium Chamber size is normal. Right Atrium Chamber size is normal. IVC/SVC The inferior vena cava structure has a diameter <21 mm and decreases >50% during inspiration. Mitral Valve Normal appearing leaflets. Leaflet mobility is normal. No regurgitation. No valve stenosis. Tricuspid Valve Normal leaflets. Leaflet mobility is normal. Trace regurgitation. No stenosis. Estimated right ventricular systolic pressure is 32 mmHg. Aortic Valve Trileaflet valve. Leaflet sclerosis and cusp sclerosis visualized. Leaflet mobility is normal. No regurgitation. No stenosis. Pulmonic Valve Pulmonic valve not well visualized. No regurgitation. No stenosis. Pericardium No pericardial effusion. Septum The atrial septum is normal. Aorta Ascending aorta is mildly enlarged. SOV: 2.91 cm. STJ: 3.36 cm. Ascendin.70 cm. Study Details A complete echocardiography study (including color flow Doppler, spectral Doppler and M-mode) was performed. Overall study quality was fair. Imaging system used: Vetiary. Wall Scoring Score Index: 1.00 The left ventricular wall motion is normal. [facility] Radiology Study observation (narrative) U [facility] ECHOCARDIOGRAMon 07-28-2024 Echocardiography ? Left Ventricle: Chamber size is normal. Normal wall thickness. Normal global systolic function. Regional wall motion is normal. Ejection fraction is normal (65 - 70%). Diastolic function is normal. ? Right Ventricle: Chamber size is normal. Systolic function is normal. ? Left Atrium: Chamber size is normal. ? Aortic Valve: Trileaflet valve. Leaflet sclerosis and cusp sclerosis visualized. Leaflet mobility is normal. No regurgitation. No stenosis. ? Mitral Valve: Normal appearing leaflets. Leaflet mobility is normal. No regurgitation. No valve stenosis. ? Tricuspid Valve: Normal leaflets. Leaflet mobility is normal. Trace regurgitation. No stenosis. Normal left ventricular chamber size. Normal left ventricular systolic function. Normal regional wall motion. Estimated EF 65-70%. No echocardiographic evidence of diastolic dysfunction. Normal right ventricular chamber size and systolic function. No hemodynamically significant valvular disease. Trace TR. Calculated RVSP is 32 mmHg No pericardial effusion. Mildly dilated ascending aorta (3.7 cms). Table formatting from the original result was not included. Images from the original result were not included. Facility [facility] Patient Information Patient Name Poonam Veloz Legal Sex Female Indication for Exam Priority: Routine Dx: Cerebrovascular accident (CVA), unspecified mechanism [I63.9 (ICD-10-CM)] Order Question Reason for Exam Stroke Interpretation Summary Result History is available. ? Left Ventricle: Chamber size is normal. Normal wall thickness. Normal global systolic function. Regional wall motion is normal. Ejection fraction is normal (65 - 70%). Diastolic function is normal. ? Right Ventricle: Chamber size is normal. Systolic function is normal. ? Left Atrium: Chamber size is normal. ? Aortic Valve: Trileaflet valve. Leaflet sclerosis and cusp sclerosis visualized. Leaflet mobility is normal. No regurgitation. No stenosis. ? Mitral Valve: Normal appearing leaflets. Leaflet mobility is normal. No regurgitation. No valve stenosis. ? Tricuspid Valve: Normal leaflets. Leaflet mobility is normal. Trace regurgitation. No stenosis. Normal left ventricular chamber size. Normal left ventricular systolic function. Normal regional wall motion. Estimated EF 65-70%. No echocardiographic evidence of diastolic dysfunction. Normal right ventricular chamber size and systolic function. No hemodynamically significant valvular disease. Trace TR. Calculated RVSP is 32 mmHg No pericardial effusion. Mildly dilated ascending aorta (3.7 cms). Findings Left Ventricle Chamber size is normal. Normal wall thickness. Normal global systolic function. Regional wall motion is normal. Ejection fraction is normal (65 - 70%). Diastolic function is normal. Right Ventricle Chamber size is normal. Systolic function is normal. Estimated right ventricular systolic pressure is 32 mmHg. Left Atrium Chamber size is normal. Right Atrium Chamber size is normal. Septum The atrial septum is normal. Mitral Valve Normal appearing leaflets. Leaflet mobility is normal. No regurgitation. No valve stenosis. Aortic Valve Trileaflet valve. Leaflet sclerosis and cusp sclerosis visualized. Leaflet mobility is normal. No regurgitation. No stenosis. Tricuspid Valve Normal leaflets. Leaflet mobility is normal. Trace regurgitation. No stenosis. Estimated right ventricular systolic pressure is 32 mmHg. Pulmonic Valve Pulmonic valve not well visualized. No regurgitation. No stenosis. Aorta Ascending aorta is mildly enlarged. SOV: 2.91 cm. STJ: 3.36 cm. Ascendin.70 cm. Pericardium No pericardial effusion. IVC/SVC The inferior vena cava structure has a diameter <21 mm and decreases >50% during inspiration. Reading Providers Reading Role Read Date ARLINE Lee Echo Harvey 07/28/2024 Wall Scoring Score Index: 1.00 The left ventricular wall motion is normal. Left Heart Measurements LV - Systole LVIDD 2.87 cm IVS 0.89 cm LVIDS 1.84 cm PW 0.82 cm LV RWT 0.57 LV Mass Index 37.6 g/m2 LV EDV BP 57 mL LV ESV BP 18 mL BP EF 68 % LV stroke volume BP (ml) 39 mL LV stroke volume index BP 24.07 mL/m2 LV - Diastole MV pk E aria 0.83 m/s MV pk A aria 1.01 m/s E/A ratio 0.82 e' septal pk aria 0.07 m/s e' lateral pk aria 0.08 m/s Avg e' pk aria 0.07 m/s E/e' septal ratio 11.79 E/e' lateral ratio 10.72 Avg E/e' ratio 11.26 LV - HCM AV LVOT peak gradient 6 mmHg Left Atrium LA size 2.9 cm LA ESV SP 4CH (MOD) 27 mL LA ESV SP 2CH (MOD) 35 mL LA ESV BP (MOD) index 19 mL/m2 Right Heart Measurements RV - 2D RV basal diam 2.75 cm RV mid diam 2.09 cm RV long diam 6.52 cm RV Area diastolic 11 cm2 RV Area systolic 5.81 cm2 RV Fractional area change (more content not included)... Normal [facility] HEMOGLOBIN A1Con 07-28-2024 Average glucose Estimated from glycated hemoglobin (Bld) [Mass/Vol] 128 mg/dL [facility] HbA1c (Bld) [Mass fraction] 6.1 % High 4.7 - 5.6 % [facility] Interpretation and review of laboratory results Abnormal [facility] Glucose [Mass/Vol] 128 mg/dL Normal [facility] Comment on above: Performed By: #### L [facility] #### [facility] (DEFAULT) [address] [place] [address], [place] [address] Hemoglobin A1C HPLC 6.1 % High 4.7-5.6 [facility] Comment on above: Performed By: #### L ABHSTI1 #### [facility] (DEFAULT) [address] [address] HEPATIC FUNCTION PANELon Albumin [Mass/Vol] 3.7 g/dL 3.5 - 5.0 g/dL [facility] ALP [Catalytic activity/Vol] 79 U/L 32 - 126 U/L [facility] ALT [Catalytic activity/Vol] 10 U/L 9 - 48 U/L [facility] AST [Catalytic activity/Vol] 25 U/L 10 - 39 U/L [facility] Comment on above: Specimen slightly he molyzed. AST results may be falsely elevated. Interpret within the clinical context. Bilirubin [Mass/Vol] 0.4 mg/dL [facility] mg/dL [facility] Bilirubin.direct [Mass/Vol] mg/dL [facility] - 0.3 mg/dL [facility] Comment on above: Specimen hemolyzed. Direct bilirubin results may be falsely decreased. Interpret within the clinical context. Protein [Mass/Vol] 7.1 g/dL 6.4 - 8.3 g/dL [facility] Albumin [Mass/Vol] 3.7 g/dL Normal 3.5-5.0 [facility] Comment on above: Performed By: #### C HM7 #### U [facility] (DEFAULT) [address] [address] ALP [Catalytic activity/Vol] 79 U/L Normal 32-126 [facility] Comment on above: Performed By: #### C HM7 #### [facility] (DEFAULT) [address] [address] ALT [Catalytic activity/Vol] 10 U/L Normal 9-48 [facility] Comment on above: Performed By: #### C HM7 #### U [facility] (DEFAULT) [address] [place] [address] AST [Catalytic activity/Vol] 25 U/L Normal 10-39 [facility] Comment on above: Result Comment: Spec imen slightly hemolyzed. AST results may be falsely elevated. Interpret within the clinical context. Performed By: #### C HM7 #### [facility] (DEFAULT) [address] [place] [address] Bilirubin [Mass/Vol] 0.4 mg/dL Normal <1.5 [facility] Comment on above: Performed By: #### C HM7 #### [facility] (DEFAULT) [address] [place] [address] Bilirubin Direct < Normal <0.3 [facility] Comment on above: Result Comment: Spec imen hemolyzed. Direct bilirubin results may be falsely decreased. Interpret within the clinical context. Performed By: #### C HM7 #### [facility] (DEFAULT) [address] [place] [address] Protein [Mass/Vol] 7.1 g/dL Normal 6.4-8.3 [facility] Comment on above: Performed By: #### C HM7 #### [facility] (DEFAULT) [address] [place] [address] HIGH SENSITIVITY TROPONIN I - SINGLE ORDEROrdered By: Patricia Potts on 07-28-2024 Interpretation and review of laboratory results Abnormal [facility] Troponin I.cardiac High sensitivity method [Mass/Vol] 34 ng/L High NINF - 34 ng/L [facility] HIGH SENSITIVITY TROPONIN I - SINGLE ORDERon 07-28-2024 hs-Troponin I 34 ng/L High <34 [facility] Comment on above: Order Comment: Acute Coronary Syndrome (ACS): Initial Evaluation and Management:[email or web address] Performed By: #### L AB980 #### [facility] (DEFAULT) [address] [place] [address] LIPID PANEL WITH REFLEX TO M BUFFY LDLon 07-28-2024 Cholesterol [Mass/Vol] 163 mg/dL NINF - 200 mg/dL [facility] Comment on above: [<200 mg/dL: Desirab le] [200-239 mg/dL: Borderline High] [>239 mg/dL: High] Cholesterol in HDL [Mass/Vol] 51 mg/dL 40 - PINF mg/dL [facility] Comment on above: [<40 mg/dL: Low (Hig h Risk)] [>59 mg/dL: High (Low Risk)] Cholesterol in LDL [Mass/Vol] 95 mg/dL 0 - 99 mg/dL [facility] Comment on above: [<100 mg/dL: Optimal ] [100-129 mg/dL: Near Optimal] [130-159 mg/dL: Borderline High] [160-189 mg/dL: High] [>189 mg/dL: Very High] Cholesterol non HDL [Mass/Vol] 112 mg/dL NINF - 130 mg/dL [facility] Cholesterol.total/Cholester ol in HDL [Mass ratio] 3.2 {ratio} NINF - 4.5 [facility] Interpretation and review of laboratory results Normal [facility] Triglyceride [Mass/Vol] 87 mg/dL NINF - 150 mg/dL [facility] Comment on above: [<150 mg/dL: Desirab le] [150-199 mg/dL: Borderline] [200-499 mg/dL: High] [>500 mg/dL: Very High] [facility] Calculated LDL Cholesterol 95 mg/dL Normal 0-99 [facility] Comment on above: Result Comment: [<10 0 mg/dL: Optimal] [100-129 mg/dL: Near Optimal] [130-159 mg/dL: Borderline High] [160-189 mg/dL: High] [>189 mg/dL: Very High] Performed By: #### L ABHSTI1 #### [facility] (DEFAULT) [address] [place] [address] Cholesterol [Mass/Vol] 163 mg/dL Normal <200 [facility] Comment on above: Result Comment: [<20 0 mg/dL: Desirable] [200-239 mg/dL: Borderline High] [>239 mg/dL: High] Performed By: #### L ABHSTI1 #### [facility] (DEFAULT) [address] [address] Cholesterol in HDL [Mass/Vol] 51 mg/dL Normal >=40 [facility] Comment on above: Result Comment: [<40 mg/dL: Low (High Risk)] [>59 mg/dL: High (Low Risk)] Performed By: #### L ABHSTI1 #### [facility] (DEFAULT) [address] [address] Non HDL Cholesterol 112 mg/dL Normal <130 [facility] Comment on above: Performed By: #### L ABHSTI1 #### [facility] (DEFAULT) [address] [address] Total Cholesterol/HDL Ratio 3.2 Normal <4.5 [facility] Comment on above: Performed By: #### L ABHSTI1 #### [facility] (DEFAULT) [address] [address] Triglyceride [Mass/Vol] 87 mg/dL Normal <150 [facility] Comment on above: Result Comment: [<15 0 mg/dL: Desirable] [150-199 mg/dL: Borderline] [200-499 mg/dL: High] [>500 mg/dL: Very High] Performed By: #### L ABHSTI1 #### [facility] (DEFAULT) [address] [address] MAGNESIUMon 07-28-2024 Magnesium [Mass/Vol] 2.1 mg/dL 1.6 - 2 .6 mg/dL [facility] Magnesium [Mass/Vol] 2.1 mg/dL Normal 1.6-2.6 [facility] Comment on above: Performed By: #### C HM7 #### [facility] (DEFAULT) [address] [address] No Panel Informationon 07-28 Interpretation and review of laboratory results Normal [facility] PHOSPHATE, INORGANICon 07-28 Phosphate [Mass/Vol] 3.2 mg/dL 2.2 - 4 .6 mg/dL [facility] Phosphorous 3.2 mg/dL Normal 2.2-4.6 [facility] Comment on above: Performed By: #### C 7 #### [facility] (DEFAULT) [address] [place] [address] 12 Lead EKGon 07-27-2024 12 Lead EKG [facility] Services [address] [place] [address] 12 Lead EKG 07/27/24 1441 MR#: [id number] Acct: [id number] Name: POONAM VELOZ Rep #: [id number] : 1940 83 From: Desmond Storm MD Attending Dr: Status: DEP ER Ordering Dr: Faraz Harrison DO Date: 07/27/24 Location: ED Sex: F C Admitted: Test Reason : Blood Pressure : / mmHG Vent. Rate : 096 BPM Atrial Rate : 096 BPM P-R Int : 166 ms QRS Dur : 076 ms QT Int : 372 ms P-R-T Axes : 031 047 053 degrees QTc Int : 469 ms Normal sinus rhythm with sinus arrhythmia Nonspecific ST abnormality Abnormal ECG Confirmed by DESMOND STORM MD ([id number]), metropolitan editor JOSE MANTILLA ([id number]) on 07/30/2024 1:42:27 PM Referred By: Confirmed By:DESMOND STORM MD 07/30/24 1342 Date Desmond Storm MD CC: Dr. Clyde Downing MD; Dr. Faraz Harrison DO Signed Normal [facility] Basic Metabolic Profile (BMP )on 07-27-2024 BUN/CRE 26.7 RATIO High 07-22 [facility] Comment on above: Order Comment: 'TROP ' Serial specimen #1, #2 or #3: 1 Performed By: #### L 501.080 #### [facility] [address] [place], [address] CA,Total 9.3 mg/dL Normal 8.5-10.1 [facility] Comment on above: Order Comment: 'TROP ' Serial specimen #1, #2 or #3: 1 Performed By: #### L 501.080 #### [facility] [address] [place], [address] Chloride [Moles/Vol] 104 mmol/L Normal 98-107 [facility] Comment on above: Order Comment: 'TROP ' Serial specimen #1, #2 or #3: 1 Performed By: #### L 501.080 #### [facility] [address] [place], [address] CO2 [Moles/Vol] 24.0 mmol/L Normal 21.0-32.0 [facility] Comment on above: Order Comment: 'TROP ' Serial specimen #1, #2 or #3: 1 Performed By: #### L 501.080 #### [facility] [address] [place], [address] Creatinine [Mass/Vol] 0.75 mg/dL Normal 0.55-1.02 [facility] [place] Comment on above: Order Comment: 'TROP ' Serial specimen #1, #2 or #3: 1 Result Comment: The validity of the calculated GFR GFRAA in patients over 70 years has not been determined. Clinical correlation is essential. Performed By: #### L 501.080 #### [facility] [address] [place], [address] ECRCL 47.26 ml/min Normal [facility] Comment on above: Order Comment: 'TROP ' Serial specimen #1, #2 or #3: 1 Performed By: #### L 501.080 #### [facility] [address] [place], [address] EST GFR - AA 95 mL/min Normal >60 [facility] Comment on above: Order Comment: 'TROP ' Serial specimen #1, #2 or #3: 1 Result Comment: Afri can Peruvian GFR Calc Performed By: #### L 501.080 #### [facility] [address] [place], [address] GAP 8 Normal 5-15 [facility] Comment on above: Order Comment: 'TROP ' Serial specimen #1, #2 or #3: 1 Performed By: #### L 501.080 #### [facility] [address] [place], [address] GFR/1.73 sq M.predicted among non-blacks MDRD (S/P/Bld) [Vol rate/Area] 79 mL/min/{1.73_m2} Normal >60 [facility] Comment on above: Order Comment: 'TROP ' Serial specimen #1, #2 or #3: 1 Result Comment: Non- GFR Calc Performed By: #### L 501.080 #### [facility] [address] [place], [address] Glucose [Mass/Vol] 112 mg/dL High 74-106 [facility] Comment on above: Order Comment: 'TROP ' Serial specimen #1, #2 or #3: 1 Result Comment: Fast ing Glucose result from 100 to 125 mg/dL suggests IMPAIRED HOMEOSTASIS per A.D.A. criteria. Performed By: #### L 501.080 #### [facility] [address] [place], [address] Potassium [Moles/Vol] 3.3 mmol/L Low 3.5-5.1 [facility] [place] [facility] Comment on above: Order Comment: 'TROP ' Serial specimen #1, #2 or #3: 1 Performed By: #### L 501.080 #### [facility] [address] [place], [address] Sodium [Moles/Vol] 135 mmol/L Low 136-145 [facility] Comment on above: Order Comment: 'TROP ' Serial specimen #1, #2 or #3: 1 Performed By: #### L 501.080 #### [facility] [address] [place], [address] Urea nitrogen [Mass/Vol] 20 mg/dL High 7-18 [facility] Comment on above: Order Comment: 'TROP ' Serial specimen #1, #2 or #3: 1 Performed By: #### L 501.080 #### [facility] [address] [place], [address] Bedside Glucoseon 07-27-2024 FINGERSTICK GLU 111 mg/dL High 74-106 [facility] Comment on above: Result Comment: [place] OF PATIENT CARE PER NURSING PROTOCOL Performed By: #### L 501.080 #### [facility] [address] [place], [address] Brain/Head without Contrasto n 07-27-2024 Brain/Head without Contrast [facility] Imaging Services [address] [place] [address] Brain/Head without Contrast MR#: [id number] Acct: [id number] Name: POONAM VELOZ Rep #: [id number] : 1940 F 83 From: Nelson clement MD PCP: Dr. Clyde Downing MD Status: ADM INES Study: Brain/Head without Contrast Date of Exam: 07/04 02/23 Exam# [id number] Ordering Dr: Susy Beltran MD [id number] EXAMINATION : Head CT w/out contrast HISTORY : NEURO CHANGES, had prior CTA with contrast @ 1430 COMPARISON : None. TECHNIQUE : Multiple contiguous axial images were obtained from the skull base to the vertex without intravenous contrast. A radiation dose optimization technique was used for this scan. FINDINGS : There is no evidence for acute intracranial hemorrhage, mass effect, or midline shift. There is no extra-axial fluid collection. There are periventricular white matter changes consistent with chronic microvascular ischemic disease. There is sulcal widening and ventricular enlargement consistent with cerebral atrophy. There is normal conrelius-white differentiation, without CT evidence of acute ischemia or infarct. Left parieto-occipital encephalomalacia. The skull base and calvarium are unremarkable. The orbits are unremarkable. The paranasal sinuses are clear. The mastoid air cells are well-aerated. The soft tissues are unremarkable. CT/Brain/Head without Contrast IMPRESSION: No acute intracranial abnormality. Left parieto-occipital encephalomalacia. Chronic involutional and ischemic changes of the brain. Electronically Signed: Nelson Cedillo MD at 18:07 EDT , CC: Dr. Susy Beltran MD; Dr. Clyde Downing MD Formulator Compounder: Signed Normal [facility] CBC W/Diff, Automatedon - Absolute Lymph 1.41 X10 3/uL Normal 0.83-4.51 [facility] Comment on above: Performed By: #### L 501.080 #### [facility] [address] [facility] [place], [address] Absolute Neut 6.0 X10 3/uL Normal 2.0-7.7 [facility] Comment on above: Performed By: #### L 501.080 #### [facility] [address] [facility] [place], [address] Basophils/100 WBC (Bld) 0.4 % Normal 0-[address] [facility] Comment on above: Performed By: #### L 501.080 #### [facility] [address] [facility] [place], [address] Eosinophils/100 WBC (Bld) 0.7 % Normal 0-5 [facility] Comment on above: Performed By: #### L 501.080 #### [facility] [address] [place], [address] Erythrocyte distribution width (RBC) [Ratio] 14.8 % High 11.6-14.6 [facility] Comment on above: Performed By: #### L 501.080 #### [facility] [address] [place], [address] Hematocrit (Bld) [Volume fraction] 31.6 % Low 37-47 [facility] Comment on above: Performed By: #### L 501.080 #### [facility] [address] [place], [address] Hemoglobin (Bld) [Mass/Vol] 10.2 g/dL Low 12.0-15. 0 [facility] Comment on above: Performed By: #### L 501.080 #### [facility] [address] [place], [address] IG% 0.200 Normal 0.0-0.9 [facility] Comment on above: Result Comment: IG% - Immature Granulocytes (promyelocytes, myelocytes and metamyelocytes) > 1% indicates that a LEFT SHIFT is Present. Performed By: #### L 501.080 #### [facility] [address] [place], [address] Lymphocytes/100 WBC (Bld) 17.6 % Low 19-41 [facility] Comment on above: Performed By: #### L [id number] #### [facility] [address] [place], [address] MCH (RBC) [Entitic mass] 26.8 pg Low 27.0-32.0 [facility] Comment on above: Performed By: #### L [id number] #### [facility] [address] [place], [address] MCHC (RBC) [Mass/Vol] 32.3 g/dL Normal 32-36 [facility] [place] [facility] Comment on above: Performed By: #### L [id number] #### [facility] [address] [place], [address] MCV (RBC) [Entitic vol] 82.9 fL Normal 81-[address] [facility] Comment on above: Performed By: #### L 501.080 #### [facility] [address] [place], [address] Monocytes/100 WBC (Bld) 6.4 % Normal 0-10 [facility] Comment on above: Performed By: #### L 501.080 #### [facility] [address] [place], [address] Neutrophils/100 WBC (Bld) 74.7 % High 47-70 [facility] Comment on above: Performed By: #### L 501.080 #### [facility] [address] [place], [address] Nucleated RBC (Bld) [#/Vol] 0 10*3/uL Normal 0-5 [facility] Comment on above: Performed By: #### L 501.080 #### [facility] [address] [place], [address] Platelet mean volume (Bld) [Entitic vol] 8.7 fL Normal 6.2-12.0 [facility] Comment on above: Performed By: #### L [id number] #### [facility] [address] [place], [address] Platelets (Bld) [#/Vol] 327 10*3/uL Normal 150-450 [facility] Comment on above: Performed By: #### L 501.080 #### [facility] [address] [place], [address] RBC (Bld) [#/Vol] 3.81 10*6/uL Low 4.2-5.4 [facility] Comment on above: Performed By: #### L 501.080 #### [facility] [address] [place], [address] RDW SD 44.7 fl High 35.1-43.9 [facility] Comment on above: Performed By: #### L 501.080 #### [facility] [address] [place], [address] WBC (Bld) [#/Vol] 8.0 10*3/uL Normal 4.4-11.0 [facility] Comment on above: Performed By: #### L 501.080 #### [facility] [address] [place], [address] CT HEAD WITHOUT CONTRASTon 1 CT HEAD WITHOUT CONTRAST ADDEND UM #1 Findings and impression should include: There is mild ex vacuo dilation of the left lateral ventricle suggesting chronicity of the hypodensity in the left temporal lobe. Correlation with MRI is needed. ORIGINAL REPORT EXAM: CT HEAD WITHOUT CONTRAST, 07/27/2024 9:58 PM COMPARISON: No priors available for comparison. CLINICAL INDICATIONS: 83 years Female AMS, stroke history. Just arrived outside hospital. LNW hours ago. NIH 20. Was given Ativan this afternoon for possible seizure activity RELEVANT CLINICAL HISTORY: TECHNIQUE: A series of transaxial computerized tomographic images are obtained from base of skull to vertex without intravenous contrast. Axial whole-head and thin section posterior fossa slices are provided. Reformats: Sagittal and coronal. FINDINGS: Evaluation is degraded secondary to patient motion artifact. There is loss of miller-white matter differentiation throughout the left parietal and temporal lobes, consistent with an MCA division acute infarction. No acute intracranial hemorrhage is seen. No significant mass effect or midline shift. Ventricles are normal in size and configuration for patient age. Skull appears intact. Visualized paranasal sinuses are clear. Visualized mastoid air cells are clear. IMPRESSION: Left acute/subacute MCA distribution infarction. No hemorrhagic conversion. Normal [facility] CT Head WO contraston 2023 Addendum by Lucina Bolanos MD on 07/27/2024 11:39 PM EDT ADDENDUM #1 Findings and impression should include: There is mild ex vacuo dilation of the left lateral ventricle suggesting chronicity of the hypodensity in the left temporal lobe. Correlation with MRI is needed. [facility] IMPRESSION: Left acute/subacute MCA distribution infarction. No hemorrhagic conversion. OLOGY ORIGINAL REPORT EXAM: CT HEAD WITHOUT CONTRAST, 07/27/2024 9:58 PM COMPARISON: No priors available for comparison. CLINICAL INDICATIONS: 83 years Female AMS, stroke history. Just arrived outside hospital. LNW hours ago. NIH 20. Was given Ativan this afternoon for possible seizure activity RELEVANT CLINICAL HISTORY: TECHNIQUE: A series of transaxial computerized tomographic images are obtained from base of skull to vertex without intravenous contrast. Axial whole-head and thin section posterior fossa slices are provided. Reformats: Sagittal and coronal. FINDINGS: Evaluation is degraded secondary to patient motion artifact. There is loss of miller-white matter differentiation throughout the left parietal and temporal lobes, consistent with an MCA division acute infarction. No acute intracranial hemorrhage is seen. No significant mass effect or midline shift. Ventricles are normal in size and configuration for patient age. Skull appears intact. Visualized paranasal sinuses are clear. Visualized mastoid air cells are clear. RADIOLOGY Lucina Vail MD - 07/27/2024 ORIGINAL REPORT EXAM: CT HEAD WITHOUT CONTRAST, 07/27/2024 9:58 PM COMPARISON: No priors available for comparison. CLINICAL INDICATIONS: 83 years Female AMS, stroke history. Just arrived outside hospital. LNW hours ago. NIH 20. Was given Ativan this afternoon for possible seizure activity RELEVANT CLINICAL HISTORY: TECHNIQUE: A series of transaxial computerized tomographic images are obtained from base of skull to vertex without intravenous contrast. Axial whole-head and thin section posterior fossa slices are provided. Reformats: Sagittal and coronal. FINDINGS: Evaluation is degraded secondary to patient motion artifact. There is loss of miller-white matter differentiation throughout the left parietal and temporal lobes, consistent with an MCA division acute infarction. No acute intracranial hemorrhage is seen. No significant mass effect or midline shift. Ventricles are normal in size and configuration for patient age. Skull appears intact. Visualized paranasal sinuses are clear. Visualized mastoid air cells are clear. IMPRESSION IMPRESSION: Left acute/subacute MCA distribution infarction. No hemorrhagic conversion. [facility] Rad[facility] contrastOrdered B y: Lucina Vail on 07-27-2024 [facility] Work Phone: Chest 1 Viewon 07-27-2024 Chest 1 View [facility] Imaging Services [address] [place] [address] Chest 1 View MR#: [id number] Acct: [id number] Name: POONAM VELOZ Rep #: [id number] : 1940 F 83 From: Nelson clement MD PCP: Dr. Clyde Downing MD Status: REG ER Study: Chest 1 View Date of Exam: 07/27/24 Exam# [id number] Ordering Dr: Faraz Harrison DO [id number] INDICATION: Neuro deficit, acute, stroke suspected EXAMINATION/TECHNIQUE: X-RAY - XR Chest 1 View COMPARISON: 02/07/2024. FINDINGS: The lungs are clear. The cardiomediastinal silhouette is unremarkable. No pleural effusion or pneumothorax. Degenerative changes of the thoracic spine. RAD/Chest 1 View IMPRESSION: No acute radiographic abnormalities. Electronically Signed: Nelson Cedillo MD at 16:15 EDT , CC: Dr. Clyde Downing MD; Dr. Faraz Harrison DO Formulator Compounder: Signed Normal [facility] Emergency Department Summary on 07-27-2024 Emergency Department Summary [facility] Medical Records Department [address] [place] [address] Emergency Department Summary 07/27/24 MR#: [id number] Acct: [id number] Name: POONAM VELOZ Rep #: [id number] : 1940 83 From: Faraz Orta PCP: Dr. Clyde Downing MD Status:DEP ER Location: ED HPI History of Present Illness Chief Complaint: Stroke Alert Informant: patient Narrative Narrative: Sent in from therapy with concerns for difficulty with her right upper extremity. She had a stroke this past January. 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 She denies headache. Denies weakness. She states difficulty with straightening her right thumb. She is right-hand dominant. [facility] Medical History DDD (degenerative disc disease), lumbar TMJ (temporomandibular joint syndrome) Hypertension Migraines Glaucoma Arthritis Environmental allergies Home Medications ???Medication ???Instructions ???Recorded ???Last Taken ???Type hydrochlorothiazide 12.5 mg capsule 12.5 mg PO DAILY 02/07/24 Unknown History losartan 50 mg tablet 50 mg PO DAILY 02/07/24 Unknown History sertraline 50 mg tablet 50 mg PO DAILY 02/07/24 Unknown History aspirin 81 mg chewable tablet 81 mg PO BREAKFAST 30 days #30 tabs 02/08/24 Unknown Rx atorvastatin 40 mg tablet 40 mg PO QHS 30 days #30 tabs 02/08/24 Unknown Rx Allergy/AdvReac Type Severity Reaction Status Date / Time No Known Allergies Allergy Verified 07/27/24 13:45 Family History Other CVA (cerebral vascular accident) Surgical History S/P appendectomy Social History Smoking Status: Unknown if ever smoked alcohol intake: never substance use type: does not use what type of physical activity do you participate in: walking and aerobics frequency: 3-4 times per week ROS ROS ED Constitutional Constitutional ED: Denies chills, fever(s) or sweats Eyes Eyes: Denies change in vision ENT ENT ED: Denies dysphagia or sore throat Cardiovascular Cardiovascular: Denies chest pain, leg edema, palpitations or racing heartbeat Respiratory/Chest Respiratory/Chest: Denies cough, dyspnea or dyspnea on exertion Gastrointestinal Gastrointestinal: Denies abdominal pain, diarrhea, nausea or vomiting Genitourinary Genitourinary ED: Denies dysuria, hematuria or urinary frequency Musculoskeletal Musculoskeletal: Denies back pain, extremity pain or neck pain Integumentary Denies rash or wounds Neurologic Neurologic: Reports paresthesias and other Details: Difficulty straightening her right thumb. ; Denies headache(s) or weakness EXAM Physical Exam Const Vital Signs: 07/27/24 13:39 07/27/24 14:30 07/27/24 14:43 Temperature 97.2 F L Temperature Source Oral Pulse Rate 80 92 95 Respiratory Rate 14 18 33 H Blood Pressure 148/58 H 107/74 132/72 H Blood Pressure Mean 88 85 92 Pulse Ox 99 99 99 Oxygen Delivery Method Room Air Room Air Room Air 07/27/24 14:44 07/27/24 14:51 07/27/24 15:21 Temperature Temperature Source Pulse Rate 98 94 Respiratory Rate 17 16 Blood Pressure 117/66 151/82 H Blood Pressure Mean 83 105 Pulse Ox 100 98 Oxygen Delivery Method Room Air Room Air Room Air 07/27/24 15:30 07/27/24 16:00 07/27/24 16:02 Temperature 98.2 F Temperature Source Pulse Rate 91 92 93 Respiratory Rate 19 H 15 17 Blood Pressure 124/72 H 171/90 H 168/74 H Blood Pressure Mean 89 117 105 Pulse Ox 98 97 98 Oxygen Delivery Method Room Air Room Air 07/27/24 16:30 07/27/24 17:24 07/27/24 17:30 Temperature Temperature Source Pulse Rate 91 93 89 Respiratory Rate 14 16 19 H Blood Pressure 138/89 H 168/94 H 155/93 H Blood Pressure Mean 105 118 113 Pulse Ox 98 99 99 Oxygen Delivery Method Room Air Room Air Room Air 07/27/24 18:00 07/27/24 18:30 Temperature Temperature Source Pulse Rate 88 73 Respiratory Rate 18 17 Blood Pressure 143/65 H 147/67 H Blood Pressure Mean 91 93 Pulse Ox 95 98 Oxygen Delivery Method Room Air Room Air Positive well nourished and well developed Constitutional Narrative: Slow on getting her words out. Nontoxic. General Appearance ED: well developed and NAD HEENT Reports moist mucous membranes normocephalic and atraumatic Eyes EOMs intact bilaterally and conjunctivae normal Eyes Narrative: Visual cano in all 4 quadrant intact to finger counting. General Eye ED: Yes normal appearance of both eyes Neck no lymphadenopathy and supple General: Negative for tenderness Chest Wall Chest: Negative for tenderness Resp normal (more content not included)... Normal [facility] H AND P Exam - Hospitaliston 07-27-2024 H&P Exam - Hospitalist [facility] Medical Records Department [address] [place] [address] H P Exam - Hospitalist 07/27/24 1543 MR#: [id number] Acct: [id number] Name: POONAM VELOZ Rep #: [id number] : 1940 83 From: Susy Beltran MD PCP: Dr. Clyde Downing MD Status:REG ER Location: ED HPI - General General Date of Admission: 07/27/24 Date of Service: 07/27/24 Chief Complaint: concern for cva HPI Narrative POONAM EVLOZ, is a 83-year-old female history of CVA, depression, hypertension presented to [facility] ED 07/27/2024 with concerns for difficulty with her right upper extremity. Had a stroke this past January and has some chronic speech issues from her stroke. She states her difficulty is mostly with straining her right thumb and she is right-hand dominant. Patient was a stroke alert in the ED. last known normal 1 PM. Neurology evaluated in the ED and did not recommend TNK. CT and CTA negative for any acute process. Neurology recommended hospital admission and further workup. Hospitalist contacted for admission.Patient was doing speech therapy today and had abrupt onset of right upper extremity weakness, sensory deficits, and ataxia around 1 PM. Interview is limited due to patient's expressive aphasia but she reports she just does not feel right, is having some difficulty with ambulating to and from the bathroom while in the ED, has decreased sensation and difficulty moving right hand as well as some expressive aphasia normal seems to have some receptive aphasia as well. No headache or changes in vision, speech problems are chronic since last stroke, did not voice any other new or acute complaints. [facility] Medical History DDD (degenerative disc disease), lumbar TMJ (temporomandibular joint syndrome) Hypertension Migraines Glaucoma Arthritis Environmental allergies Home Medications ???Medication ???Instructions ???Recorded ???Last Taken ???Type hydrochlorothiazide 12.5 mg capsule 12.5 mg PO DAILY 02/07/24 Unknown History losartan 50 mg tablet 50 mg PO DAILY 02/07/24 Unknown History sertraline 50 mg tablet 50 mg PO DAILY 02/07/24 Unknown History aspirin 81 mg chewable tablet 81 mg PO BREAKFAST 30 days #30 tabs 02/08/24 Unknown Rx atorvastatin 40 mg tablet 40 mg PO QHS 30 days #30 tabs 02/08/24 Unknown Rx Allergy/AdvReac Type Severity Reaction Status Date / Time No Known Allergies Allergy Verified 07/27/24 13:45 Family History Other CVA (cerebral vascular accident) Surgical History S/P appendectomy Social History Smoking Status: Unknown if ever smoked alcohol intake: never substance use type: does not use what type of physical activity do you participate in: walking and aerobics frequency: 3-4 times per week ROS ROS Narrative General: Denies fever/chills HENT: Denies headache, denies stuffy nose, denies sore throat EYES: Denies changes in vision Resp: Denies cough, denies shortness of breath Cardiac: Denies chest pain GI: Denies abdominal pain, denies changes in bowel, denies nausea/vomiting : Denies changes in urination Extremity: Denies swelling MSK: Right upper extremity weakness Neuro: Decreased sensation on right arm, difficulty with speech as well as some expressive and possibly receptive aphasia Heme: Denies any bleeding or bruising Skin: Denies rashes Psychiatric: No complaints voiced Vital Signs Vital Signs Vital Signs: 07/27/24 13:39 07/27/24 14:30 07/27/24 14:43 Temperature 97.2 F L Temperature Source Oral Pulse Rate 80 92 95 Respiratory Rate 14 18 33 H Blood Pressure 148/58 H 107/74 132/72 H Blood Pressure Mean 88 85 92 Pulse Ox 99 99 99 Oxygen Delivery Method Room Air Room Air Room Air 07/27/24 14:44 07/27/24 14:51 07/27/24 15:21 Temperature Temperature Source Pulse Rate 98 94 Respiratory Rate 17 16 Blood Pressure 117/66 151/82 H Blood Pressure Mean 83 105 Pulse Ox 100 98 Oxygen Delivery Method Room Air Room Air Room Air 07/27/24 15:30 Temperature Temperature Source Pulse Rate 91 Respiratory Rate 19 H Blood Pressure 124/72 H Blood Pressure Mean 89 Pulse Ox 98 Oxygen Delivery Method Room Air Weight Weight: 64.013 kg Body Mass Index (BMI) 26.6 Physical Exam Narrative General: Alert, patient with expressive aphasia, difficulty answering questions HEENT: Atraumatic, normocephalic Eyes: Anicteric, normal conjunctiva, extraocular movements intact, pupils pinpoint but equal Neck: Supple Respiratory: Clear to auscultation bilaterally, normal respiratory effort Cardiovascular: Regular r (more content not included)... Normal [facility] L501.4020on 07-27-2024 TROPONIN-I HS 22 pg/mL Normal 3.0-54.0 [facility] Comment on above: Order Comment: 'TROP ' Serial specimen #1, #2 or #3: 1 Result Comment: Marion gay Note: New Test Units and Gender Specific Reference Ranges. For more information see Policy Stat Procedure Bristol High Sensitivity Troponin (TNIH) and attachments. Performed By: #### L 501.080 #### [facility] [address] [place], [address] MR Brain WO [facility] 07-27 IMPRESSION: No acute intracranial abnormalities. Chronic left MCA distribution infarct. OLOGY EXAM: MRI BRAIN WITHOUT CONTRAST, 07/27/2024 22:51 PM COMPARISON: CT HEAD WITHOUT CONTRAST July 27, 2024 CLINICAL INDICATIONS: 83 years Female stroke RELEVANT CLINICAL HISTORY: TECHNIQUE: A series of multisequence, multiplanar images of the brain are obtained without intravenous contrast. FINDINGS: Evaluation is degraded secondary to patient motion artifact. Diffusion imaging shows no acute or early subacute infarction. Chronic left MCA distribution infarction demonstrated by encephalomalacia and gliosis. Additional scattered FLAIR signal abnormalities throughout the cerebral white matter are nonspecific, but statistically most consistent with mild chronic microvascular angiopathy. There is no mass effect or abnormal extra-axial fluid collection. The ventricles are stable in size and morphology. There are signal voids in the larger intracranial vessels. RADIOLOGY Lucina Vail MD - 07/27/2024 EXAM: MRI BRAIN WITHOUT CONTRAST, 07/27/2024 22:51 PM COMPARISON: CT HEAD WITHOUT CONTRAST July 27, 2024 CLINICAL INDICATIONS: 83 years Female stroke RELEVANT CLINICAL HISTORY: TECHNIQUE: A series of multisequence, multiplanar images of the brain are obtained without intravenous contrast. FINDINGS: Evaluation is degraded secondary to patient motion artifact. Diffusion imaging shows no acute or early subacute infarction. Chronic left MCA distribution infarction demonstrated by encephalomalacia and gliosis. Additional scattered FLAIR signal abnormalities throughout the cerebral white matter are nonspecific, but statistically most consistent with mild chronic microvascular angiopathy. There is no mass effect or abnormal extra-axial fluid collection. The ventricles are stable in size and morphology. There are signal voids in the larger intracranial vessels. IMPRESSION IMPRESSION: No acute intracranial abnormalities. Chronic left MCA distribution infarct. [facility] Radiology Study observation (narrative) [facility] MRI BRAIN WITHOUT CONTRASTon 07-27-2024 MRI BRAIN WITHOUT CONTRAST EXAM: MRI BRA IN WITHOUT CONTRAST, 07/27/2024 22:51 PM COMPARISON: CT HEAD WITHOUT CONTRAST July 27, 2024 CLINICAL INDICATIONS: 83 years Female stroke RELEVANT CLINICAL HISTORY: TECHNIQUE: A series of multisequence, multiplanar images of the brain are obtained without intravenous contrast. FINDINGS: Evaluation is degraded secondary to patient motion artifact. Diffusion imaging shows no acute or early subacute infarction. Chronic left MCA distribution infarction demonstrated by encephalomalacia and gliosis. Additional scattered FLAIR signal abnormalities throughout the cerebral white matter are nonspecific, but statistically most consistent with mild chronic microvascular angiopathy. There is no mass effect or abnormal extra-axial fluid collection. The ventricles are stable in size and morphology. There are signal voids in the larger intracranial vessels. IMPRESSION: No acute intracranial abnormalities. Chronic left MCA distribution infarct. Normal [facility] MRI PLAIN FILM FOR NEURO EXA 07-27-2024 MRI PLAIN FILM FOR NEURO EXAM EXAM: MRI PLAIN FILM FOR NEURO EXAM, 07/27/2024 22:32 PM COMPARISON: No priors available for comparison.. CLINICAL INDICATIONS: 83 years Female Chest and Abdomen FINDINGS: Radiograph(s) of the chest, abdomen and pelvis were obtained as part of safety screening prior to an MRI examination. No radiopaque foreign bodies or implants are seen that would preclude an MRI examination. No major incidental findings are seen. IMPRESSION: No radiopaque foreign bodies to preclude MRI. Normal [facility] IMPRESSION: No radiopaque foreign bodies to preclude MRI. OLOGY EXAM: MRI PLAIN FILM FOR NEURO EXAM, 07/27/2024 22:32 PM COMPARISON: No priors available for comparison.. CLINICAL INDICATIONS: 83 years Female Chest and Abdomen FINDINGS: Radiograph(s) of the chest, abdomen and pelvis were obtained as part of safety screening prior to an MRI examination. No radiopaque foreign bodies or implants are seen that would preclude an MRI examination. No major incidental findings are seen. RADIOLOGY Buddy Núñez M D - 07/27/2024 EXAM: MRI PLAIN FILM FOR NEURO EXAM, 07/27/2024 22:32 PM COMPARISON: No priors available for comparison.. CLINICAL INDICATIONS: 83 years Female Chest and Abdomen FINDINGS: Radiograph(s) of the chest, abdomen and pelvis were obtained as part of safety screening prior to an MRI examination. No radiopaque foreign bodies or implants are seen that would preclude an MRI examination. No major incidental findings are seen. IMPRESSION IMPRESSION: No radiopaque foreign bodies to preclude MRI. [facility] Radiology Study observation (narrative) [facility] MRI PLAIN FILM FOR NEURO EXA MOrdered By: Buddy Núñez on 07-27-2024 [facility] Work Phone: Partial Thromboplast Timeon 07-27-2024 aPTT Coag (Bld) [Time] 34.7 s Normal 24.1-36.2 [facility] Comment on above: Performed By: #### L 501.080 #### [facility] [address] [place], [address] Prothrombin Time w/INRon INR Coag (PPP) [Relative time] 1.1 {INR} Normal [facility] Comment on above: Performed By: #### L 501.080 #### [facility] [address] [place], [address] PT Coag (PPP) [Time] 14.4 s Normal 11.7-14.9 [facility] Comment on above: Performed By: #### L 501.080 #### [facility] [address] [place], [address] STROKE Brain/Head without Co nton 07-27-2024 STROKE Brain/Head without Cont [facility] Imaging Services [address] [place] [address] STROKE Brain/Head without Cont MR#: [id number] Acct: [id number] Name: POONAM VELOZ Rep #: [id number] : 1940 F 83 From: Rodríguez Chance MD PCP: Dr. Clyde Downing MD Status: REG ER Study: STROKE Brain/Head without Cont Date of Exam: Exam# [id number] Ordering Dr: Le,Faraz DO ADDENDUM by Dr. Rodríguez Chance MD on 07/27/24 at 1443 [id number] STUDY: CT BRAIN WITHOUT CONTRAST REASON FOR EXAM: Female, 83 years old. Neuro deficit, acute, stroke suspected RADIATION DOSAGE (If Supplied By Facility): CTDIvol = ( ) mGy, DLP = ( ) mGycm TECHNIQUE: Transaxial CT imaging of the brain was performed without administration of intravenous contrast material. Individualized dose optimization techniques were used for this CT. COMPARISON: February 07, 2024 MRI FINDINGS: Normal soft tissue structures. Normal calvarium. There is mild cerebral atrophy with widening of the extra-axial spaces and ventricular dilatation. There are areas of decreased attenuation within the white matter tracts of the supratentorial brain, consistent with microvascular disease changes. There is left parietal volume loss and encephalomalacia. Normal basal ganglia and thalami. Normal brainstem. Normal cerebellum. There is no intracranial hemorrhage. There are no findings of an acute ischemic infarction. Normal visualized paranasal sinuses. 07/27/24 1443 Date cc: Dr. Clyde Downing MD; Dr. Faraz Harrison DO * Signed ADDENDUM by Dr. Rodríguez Chance MD on 07/27/[address]/STROKE Brain/Head without Cont IMPRESSION: Chronic involutional changes of the brain. N.B. : The above Results were Read Back by Rodríguez Chance MD to Faraz Harrison DO, and understanding confirmed on 07/27/2024 14:41:04 (ET). Electronically Signed: Rodríguez Chance MD at 14:43 EDT , 07/27/24 1450 Date cc: Dr. Clyde Downing MD; Dr. Farza Harrison DO * Signed [id number] STUDY: CT BRAIN WITHOUT CONTRAST REASON FOR EXAM: Female, 83 years old. Neuro deficit, acute, stroke suspected RADIATION DOSAGE (If Supplied By Facility): CTDIvol = ( ) mGy, DLP = ( ) mGycm TECHNIQUE: Transaxial CT imaging of the brain was performed without administration of intravenous contrast material. Individualized dose optimization techniques were used for this CT. COMPARISON: February 07, 2024 MRI FINDINGS: Normal soft tissue structures. Normal calvarium. There is mild cerebral atrophy with widening of the extra-axial spaces and ventricular dilatation. There are areas of decreased attenuation within the white matter tracts of the supratentorial brain, consistent with microvascular disease changes. There is left parietal volume loss and encephalomalacia. Normal basal ganglia and thalami. Normal brainstem. Normal cerebellum. There is no intracranial hemorrhage. There are no findings of an acute ischemic infarction. Normal visualized paranasal sinuses. CT/STROKE Brain/Head without Cont IMPRESSION: Chronic involutional changes of the brain. N.B. : The above Results were Read Back by Rodríguez Chance MD to Faraz Harrison DO, and understanding confirmed on 07/27/2024 14:41:04 (ET). Electronically Signed: Rodríguez Chance MD at 14:43 EDT , CC: Dr. Clyde Downing MD; Dr. Faraz Harrison DO Formulator Compounder: Signed Normal [facility] STROKE CTA Head AND Neck W/C onon 07-27-2024 STROKE CTA Head AND Neck W/Con [facility] Imaging Services [address] [place] [address] STROKE CTA Head AND Neck W/Con MR#: [id number] Acct: [id number] Name: POONAM VELOZ Rep #: [id number] : 1940 F 83 From: Rodríguez Chance MD PCP: Dr. Clyde Downing MD Status: REG ER Study: STROKE CTA Head AND Neck W/Con Date of Exam: Exam# [id number] Ordering Dr: Faraz Harrison DO ADDENDUM by Dr. Rodríguez Chance MD on 07/27/24 at 1500 [id number] STUDY: CTA HEAD AND NECK WITH CONTRAST REASON FOR EXAM: Female, 83 years old. Neuro deficit, acute, stroke suspected RADIATION DOSAGE (If Supplied By Facility): CTDIvol = ( 23.62 ) mGy, DLP = ( 661.01 ) mGycm TECHNIQUE: CT angiography was performed with a multi-detector CT scanner. Data acquisition was obtained from the skull base through the vertex following intravenous administration of 100mL Isovue-370. MIP images were reconstructed from the axial data set. Post-processing of the angiographic images was performed, with multiplanar reformation and 3D reconstruction. Individualized dose optimization techniques were used for this CT. COMPARISON: February 07, 2024 FINDINGS: Normal bilateral petrous carotid arteries. Normal right cavernous carotid artery with a normal supraclinoid bifurcation. Normal left cavernous carotid artery with a normal supraclinoid bifurcation. Normal right A1 segments of the anterior cerebral artery. Normal left A1 segments of the anterior cerebral artery. Normal intact anterior communicating artery (ACOM). Normal bilateral A2 segments of the anterior cerebral arteries. Normal right M1 and M2 segments of the middle cerebral arteries, with a normal M1 bifurcation. Normal left M1 and M2 segments of the middle cerebral arteries, with a normal M1 bifurcation. Normal right posterior communicating artery (PCOM). There is non-visualization of the left posterior communicating artery (PCOM). Normal bilateral vertebral arteries. Normal basilar artery with a normal basilar bifurcation. The visualized bilateral superior cerebellar (SCA) arteries are normal. Normal bilateral P1, P2 and visualized P3 segments of the posterior cerebral arteries. There is no demonstrated aneurysm of the [place]. There is left parietal volume loss and encephalomalacia consistent with prior infarct. AORTIC ARCH: There is atherosclerotic calcific and noncalcified plaque formation of the aortic arch and great vessels arising from the aortic arch, without a hemodynamically significant stenosis. There is a normal origin of the brachiocephalic, left common carotid, and left subclavian arteries. RIGHT CAROTID ARTERIES: Normal right common carotid artery (CCA). There is mild atherosclerotic plaque formation with minimal narrowing of the right carotid bulb. There is moderate atherosclerotic plaque formation of the origin of the right internal carotid artery with an estimated stenosis of 50-69% stenosis. Normal visualized cervical portion of the right internal carotid artery. Normal origin of the right external carotid artery (ECA). LEFT CAROTID ARTERIES: Normal left common carotid artery (CCA). There is mild atherosclerotic plaque formation with minimal narrowing of the left carotid bulb. There is mild atherosclerotic plaque formation of the origin of the left internal carotid artery with less than 50% cross sectional diameter stenosis. Normal visualized cervical portion of the left internal carotid artery. Normal origin of the left external carotid artery (ECA). VERTEBRAL ARTERIES: Normal bilateral vertebral arteries. 07/27/24 1500 Date cc: Dr. Clyde Downing MD; Dr. Faraz Harrison DO * Signed ADDENDUM by Dr. Rodríguez Chance MD on 07/27/[address]/STROKE CTA Head AND Neck W/Con IMPRESSION: No intracranial aneurysm or large vessel occlusion. Plaque with moderate, 50-69%, right internal carotid artery stenosis and mild, less than 50%, narrowing on the left. N.B. : The above Results were Read Back by Rodríguez Chance MD to Faraz Harrison DO, and understanding confirmed on 07/27/2024 15:02:10 (ET). Electronically Signed: Rodríguez Chance MD at 15:00 EDT , 07/27/24 1509 Date cc: Dr. Clyde Downing MD; Dr. Faraz Harrison, DO * Signed We are attempting to reach an attending provider to discuss findings. An addendum with communication details will be sent when the communication is complete. [id number] STUDY: CTA HEAD AND NECK WITH CONTRAST REASON FOR EXAM: Female, 83 years old. Neuro deficit, acute, stroke suspected RADIATION DOS (more content not included)... Normal [facility] Urinalysis, Completeon 07-27 BACTERIA 0 SEEN Normal None Seen [facility] Comment on above: Order Comment: CLEAN CATCH Performed By: #### L 400.0001 #### [facility] [address] [place], [address] EPI,SQUAMOUS 0 SEEN Normal - [facility] Comment on above: Order Comment: CLEAN CATCH Performed By: #### L 400.0001 #### [facility] [address] [place], [address] Mucus Ql (Urine sed) 0 SEEN Normal [facility] Comment on above: Order Comment: CLEAN CATCH Performed By: #### L 400.0001 #### [facility] [address] [place], [address] RBC 0 SEEN Normal 0-5 [facility] Comment on above: Order Comment: CLEAN CATCH Performed By: #### L 400.0001 #### [facility] [address] [place], [address] WBC 0 SEEN Normal 0-5 [facility] Comment on above: Order Comment: CLEAN CATCH Performed By: #### L 400.0001 #### [facility] [address] [place], [address] Comprehensive Metabolic Prof ilon 06-18-2024 Albumin [Mass/Vol] 3.5 g/dL Normal 3.2-5.0 [facility] Comment on above: Performed By: #### L 500.4050, L500.4100 #### [facility] [address] [place], [address] Albumin/Globulin [Mass ratio] 0.8 {ratio} Low 0.9-2.4 [facility] Comment on above: Performed By: #### L 500.4050, L500.4100 #### [facility] [address] [place], [address] ALK P 99 U/L Normal 45-117 [facility] Comment on above: Performed By: #### L 500.4050, L500.4100 #### [facility] [address] [place], [address] ALT [Catalytic activity/Vol] 19 U/L Normal 13-56 [facility] Comment on above: Performed By: #### L 500.4050, L500.4100 #### [facility] [address] [place], [address] AST [Catalytic activity/Vol] 19 U/L Normal 15-37 [facility] Comment on above: Performed By: #### L 500.4050, L500.4100 #### [facility] [address] [place], [address] Bilirubin [Mass/Vol] 0.20 mg/dL Normal 0.20-1.00 [facility] Comment on above: Result Comment: For patients on eltrombopag therapy, use of Dimension [place] TBIL is not recommended. Performed By: #### L 500.4050, L500.4100 #### [facility] [address] [place], [address] BUN/CRE 25.5 RATIO High 10-20 [facility] Comment on above: Performed By: #### L 500.4050, L500.4100 #### [facility] [address] [place], [address] CA,Total 10.6 mg/dL High 8.5-10.1 [facility] Comment on above: Performed By: #### L 500.4050, L500.4100 #### [facility] [address] [place], [address] Chloride [Moles/Vol] 103 mmol/L Normal 98-107 [facility] Comment on above: Performed By: #### L 500.4050, L500.4100 #### [facility] [address] [place], [address] CO2 [Moles/Vol] 26.0 mmol/L Normal 21.0-32.0 [facility] Comment on above: Performed By: #### L 500.4050, L500.4100 #### [facility] [address] [place], [address] Creatinine [Mass/Vol] 0.82 mg/dL Normal 0.55-1.02 [facility] [place] Comment on above: Result Comment: The validity of the calculated GFR GFRAA in patients over 70 years has not been determined. Clinical correlation is essential. Performed By: #### L 500.4050, L500.4100 #### [facility] [address] [place], [address] EST GFR - AA 85 mL/min Normal >60 [facility] Comment on above: Result Comment: Afri can Peruvian GFR Calc Performed By: #### L 500.4050, L500.4100 #### [facility] [address] [place], [address] GAP 8 Normal 5-15 [facility] Comment on above: Performed By: #### L 500.4050, L500.4100 #### [facility] [address] [place], [address] GFR/1.73 sq M.predicted among non-blacks MDRD (S/P/Bld) [Vol rate/Area] 71 mL/min/{1.73_m2} Normal >60 [facility] Comment on above: Result Comment: Non- GFR Calc Performed By: #### L 500.4050, L500.4100 #### [facility] [address] [place], [address] Globulin (S) [Mass/Vol] 4.5 g/dL High 2.2-4.2 [facility] Comment on above: Performed By: #### L 500.4050, L500.4100 #### [facility] [address] [place], [address] Glucose [Mass/Vol] 120 mg/dL High 74-106 [facility] Comment on above: Result Comment: Fast ing Glucose result from 100 to 125 mg/dL suggests IMPAIRED HOMEOSTASIS per A.D.A. criteria. Performed By: #### L 500.4050, L500.4100 #### [facility] [address] [place], [address] Potassium [Moles/Vol] 4.0 mmol/L Normal 3.5-5.1 [facility] [place] Comment on above: Performed By: #### L 500.4050, L500.4100 #### [facility] [address] [place], [address] Sodium [Moles/Vol] 137 mmol/L Normal 136-145 [facility] Comment on above: Performed By: #### L 500.4050, L500.4100 #### [facility] [address] [place], [address] T PROT 8.0 g/dL Normal 6.4-8.2 [facility] Comment on above: Performed By: #### L 500.4050, L500.4100 #### [facility] [address] [place], [address] Urea nitrogen [Mass/Vol] 21 mg/dL High 7-18 [facility] Comment on above: Performed By: #### L 500.4050, L500.4100 #### [facility] [address] [place], [address] Lipid Profileon 06-18-2024 Cholesterol [Mass/Vol] 148 mg/dL Normal 200 [facility] Comment on above: Result Comment: <200 mg/dL Desirable 200-240 mg/dL Borderline >240 mg/dL High Risk Performed By: #### L 500.4050, L500.4100 #### [facility] [address] [place], [address] Cholesterol in HDL [Mass/Vol] 71 mg/dL Normal [facility] Comment on above: Result Comment: The drugs N-Acetylcysteine and Metamizole may falsely depress this assay. Reference Range HDL <40 mg/dL Low HDL Cholesterol HDL >or= 60 mg/dL High HDL Cholesterol Performed By: #### L 500.4050, L500.4100 #### [facility] [address] [place], [address] Cholesterol in LDL [Mass/Vol] 52 mg/dL Normal 0-130 [facility] Comment on above: Performed By: #### L 500.4050, L500.4100 #### [facility] [address] [place], [address] Cholesterol in VLDL [Mass/Vol] 25 mg/dL Normal 5-40 [facility] Comment on above: Performed By: #### L 500.4050, L500.4100 #### [facility] [address] [place], [address] Triglyceride [Mass/Vol] 123 mg/dL Normal [facility] Comment on above: Result Comment: The drugs N-Acetylcysteine and Metamizole may falsely depress this assay. Serum Triglycerides Reference Interval Normal <150 mg/dL Borderline high 150 - 199 mg/dL High 200 - 499 mg/dL Very High > or = 500 mg/dL Performed By: #### L 500.4050, L500.4100 #### [facility] [address] [place], [place], [address] SP/HP.Maxine 05-14-2024 SP/HP.SPREEV [facility] Speech Pathology [facility] [address] [place] [address] / REEVALUATION / MEDICARE RECERTIFICATION SPEECH THERAPY MR#: [id number] Acct: [id number] Name: POONAM VELOZ Rep #: [id number] : 1940 83 From: Raphael Calvin M.A., [facility] Referring Dr.: Dr. Clyde Downing MD Insurance: [facility] [id number] SELF PAY INSURANCE Visit History Visit Info Date of Eval: 04/13/24 Visit: 1 Emergency Room Physician Assistant: SHIELA History Attending Doctor: Referring Doctor: Reason for Referral: APHASIA POST STROKE. RX HERE Medical Diagnosis: CVA Date of Onset of Diagnosis: 02/06/24 Previous speech therapy: Yes Results: One visit in the hospital for evaluation then home health. Other Relevant Medical History/Diagnoses/Surg sara: History: on 02/07/24 ER: POONAM VELOZ, is a 83 F who presents to the hospital with signs and symptoms concerning for stroke. Her last known well was last night at 11 PM when she went to bed with her . This morning she was acting confused and was not doing her normal tasks appropriately. He presented to the PCPs office who recommended that he bring her to the emergency room. In the ER CT of the brain demonstrated a left parietal stroke and the head and neck CTA demonstrated a right ICA stenosis of 50 to 69%. MRI is currently pending. She does have an NIH of approximately 6 in the ER. Other medical history: Arthritis, DDD (degenerative disc disease) lumbar, Environmental allergies, Glaucoma, Hypertension, Migraines, TMJ (temporomandibular joint syndrome) Smoking Status: Unknown if ever smoked Diagnosis Diagnosis: Severe aphasia post CVA Pain Is pain an issue with your current prescribed condition?: No Personal Preferred language: Gabonese Patient Allergies Allergies Allergies: Allergies No Known Allergies Allergy (Verified 02/21/24 13:43) Previous/Current Goals Goals 1-5 Previous Goal #1: Patient will answer yes/no questions progressing from simple to complex on 4/5 trials on 2/3 consecutive sessions. Goal 1 Status: GOAL CONTINUES: Initially: personal 100%, comparison 50% Currently: She is able to answer general yes/no ( is your name Darvel?) with 80% Comparison are 57%, when added a written question along with verbal she increased to 80% with extremely slow processing. Previous Goal #2: Patient will follow 3-4 component directions on 4/5 trials on 2/3 consecutive sessions with minimal cues. Goal 2 Status: Initially: Currently: 6/8 with 50% needing repetition. Previous Goal #3: Patient will complete automatic speech tasks on 4/5 trials on 2/3 consecutive sessions with minimal cues. Goal 3 Status: GOAL CONTINUES: Initially:- All automatic speech tasks were difficult. Currently: Currently she was able to count 1-8 then 1-10. She benefits from initial sound in written form. She was able to do days of the week with 50% accuracy. Months of the year remain difficult. Previous Goal #4: Patient will complete word finding tasks including but not limited to responsive name tasks, phrase completion tasks and providing personal information on 4/5 trials on 2/3 consecutive sessions. Goal 4 Status: GOAL CONTINUES: She continues to have severe word finding in conversation. She often can state a sentence but then not get the last noun which is the main point of the sentence. ( example: I went to the ____.) When listing items in categories, her listing was very slow and often repetitive of items already listed. She was able to list 7 animals and 10 foods but task to over 10 minutes to complete. Previous Goal #5: Patient will complete reading comprehension activities for phrases, sentences and paragraphs of 3-5 sentences on 4/5 trials on 2/3 consecutive sessions. Goal 5 Status: GOAL CONTINUES: This goal has only been addressed twice. Sentence completion with 3 written choices was 05/17. She also had difficulty in identification of letters Objective Cog/Ling/Com Test Administered Uyfperkln-Bsrhzeqvfv-J ommunication Assessment Administered: Yes Egpderwoy-Njwmdlfadx-L ommunication Assessment: Cognitive ??? Linguistic skills were evaluated using patient/family interview, skilled observation and informal evaluation through tasks completed by the patient. Orientation Orientation: Person, Birthdate and Medical Diagnosis Identification Body parts/objects: WFL Letters: WFL Numbers: Moderate Answer Yes/No Questions Simple: Mild Complex: Moderate Follows Commands 2 Step: Mild Complex: Severe Comments Comments: Patient needed all directions and questions repeated at least once. She was slow to complete tasks. She was able to give her birthday when asked yes/no questions (Is your birthday in August?). Automatic Sequences Automatic Sequences: Moderate Naming Responsive naming: Severe Conversational Tasks Convers (more content not included)... Normal [facility] SP/HP.SP.Shabbir 04-13-2024 SP/HP.SP.EV [facility] Speech Pathology [facility] [address] [place] [address] / REHABILITATION SERVICES INITIAL EVALUATION MR#: [id number] Acct: [id number] Name: POONAM VELOZ Rep #: [id number] : 1940 83 From: Raphael Calvin M.A., [facility] Referring Dr.: Dr. Clyde Downing MD Status: [facility] Insurance: [facility] [id number] SELF PAY INSURANCE Visit History Visit Info Date of Eval: 04/13/24 Visit: 1 Emergency Room Physician Assistant: SHIELA History Attending Doctor: Referring Doctor: Reason for Referral: APHASIA POST STROKE. RX HERE Medical Diagnosis: CVA Date of Onset of Diagnosis: 02/06/24 Previous speech therapy: Yes Results: One visit in the hospital for evaluation then home health. Other Relevant Medical History/Diagnoses/Surg sara: History: on 02/07/24 ER: POONAM VELOZ, is a 83 F who presents to the hospital with signs and symptoms concerning for stroke. Her last known well was last night at 11 PM when she went to bed with her . This morning she was acting confused and was not doing her normal tasks appropriately. He presented to the PCPs office who recommended that he bring her to the emergency room. In the ER CT of the brain demonstrated a left parietal stroke and the head and neck CTA demonstrated a right ICA stenosis of 50 to 69%. MRI is currently pending. She does have an NIH of approximately 6 in the ER. 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 Linguistic skills were evaluated using patient/family interview, skilled observation and informal evaluation through tasks completed by the patient. Orientation Orientation: Person, Birthdate and Medical Diagnosis Identification Body parts/objects: WFL Letters: WFL Numbers: Moderate Answer Yes/No Questions Simple: Mild Complex: Moderate Follows Commands 2 Step: Mild Complex: Severe Comments Comments: Patient needed all directions and questions repeated at least once. She was slow to complete tasks. She was able to give her birthday when asked yes/no questions (Is your birthday in August?). Automatic Sequences Automatic Sequences: Moderate Naming Responsive naming: Severe Conversational Tasks Conversational Tasks: Severe Comments: In conversation she was able to say some short sentences like I hope so but often sentences were incomplete and the aphasia stopped the conversation. Example: Most of the time I was just __ - but unable to finish it. She also demonstrates significant paraphasias such as merjous for nervous. Comments Comments: Patient demonstrates fluent aphasia as noted by significant word finding deficits. Examples of communication to describe a picture -Its a baby - not a baby - a little girl cookie time. She is the __ time. no its his girl little girl. is doing some s, s, s she's doing the wishes ( dishes). She was unable to say days of the week even when given a starter day but counted 1-10 without hesitation. Overall, functional communication is severe. Reading Picture-Word Matching Picture-Word matching: WFL Reading Comprehension Words: WFL Sentences: Severe Oral Reading Words: Moderate Sentences: Severe Comments: She was able to read 3/5 words and sentences were very difficult. Writing Functional writing correctly: Name Sentences: Moderate Comments: She was able to write her first name and only copy her last name. She was able to copy a sentence with several errors noted and she wrote in capitals. Cognitive Linguistic Comments Comments Comments: -: Patient presented with fluent global aphasia. Her hobby was reading and she is no longer able to read books. Patient reported that at times she is able to communicate more with her but other times they get frustrated and need a break from communication attempts. Reference: Neuro-QoL instrument HDQLIFE - Speech Difficulties In the past 7 days. It was difficult for other people to understand me.: Often Is was difficult to speak clearly?: Often In the past 7 days.. How often did you limit your social activites because you had difficulty speaking?: Sometimes In the past 7 days... I had trouble speaking.: Somewhat I was frustrated by my speech difficulties.: Quite (more content not included)... Normal [facility] Absolute lymphocyte countOrd ered By: Jayy Vera on 02-08-2024 Lymphocytes Auto (Unsp spec) [#/Vol] 1.64 10*3/uL 0.83-4.51 [facility] Automated lymphocyte count a s percentage of total leukocytesOrdered By: Jayy Vera on 02-08-2024 Lymphocytes/100 WBC Auto (Unsp spec) 20.1 % 19-41 [facility] Basophil percentageOrdered B y: Jayy Vera on 02-08-2024 Basophils/100 WBC (Bld) 0.5 % 0-1 [facility] Chloride [Moles/Vol] 107 mmol/L 98-107 [facility] Cholesterol [Mass/Vol] 162 mg/dL <200 [facility] Comment on above: <200 mg/dL Desirable 200-240 mg/dL Borderline >240 mg/dL High Risk Eosinophils/100 WBC (Bld) 1.8 % 0-5 [facility] Glucose [Mass/Vol] 106 mg/dL 74-106 [facility] Comment on above: Fasting Glucose resu lt from 100 to 125 mg/dL suggests IMPAIRED HOMEOSTASIS per A.D.A. criteria. Hemoglobin (Bld) [Mass/Vol] 11.2 g/dL 12.0-15. 0 [facility] Monocytes/100 WBC (Bld) 6.9 % 0-10 [facility] Neutrophils (Bld) [#/Vol] 5.7 10*3/uL 2.0-7.7 [facility] Neutrophils/100 WBC (Bld) 70.2 % 47-70 [facility] Potassium [Moles/Vol] 3.8 mmol/L 3.5-5.1 [facility] Sodium [Moles/Vol] 137 mmol/L 136-145 [facility] Triglyceride [Mass/Vol] 86 mg/dL <199 [facility] Comment on above: The drugs N-Acetylcy steine and Metamizole may falsely depress this assay.Serum Triglycerides Reference Interval Normal <150 mg/dL Borderline high 150 - 199 mg/dL High 200 - 499 mg/dL Very High > or = 500 mg/dL WBC (Bld) [#/Vol] 8.2 10*3/uL 4.4-11.0 [facility] Determination of erythrocyte mean corpuscular volume (MCV)Ordered By: Jayy Vera on 02-08-2024 MCV (RBC) [Entitic vol] 85.4 fL 81-99 [facility] Erythrocyte distribution wid th ratioOrdered By: Jayy Vera on 02-08-2024 Erythrocyte distribution width (RBC) [Ratio] 13.9 % 11.6-14.6 [facility] Erythrocyte distribution wid th standard deviationOrdered By: Jayy Vera on 02-08-2024 Erythrocyte distribution width (RBC) [Entitic vol] 43.5 fL 35.1-43.9 [facility] Hematocrit Auto (Bld) [Volum e fraction]Ordered By: Jayy Vera on 02-08-2024 Hematocrit (Bld) [Volume fraction] 34.4 % 37-47 [facility] Immature granulocytes/100 WB C Auto (Bld)Ordered By: Jayy Vera on 02-08-2024 Immature granulocytes/100 WBC (Bld) 0.500 % 0.0-0.9 [facility] Comment on above: IG% - Immature Granu locytes (promyelocytes, myelocytes and metamyelocytes) > 1% indicates that a LEFT SHIFT is Present. Laboratory - Chemistry and C hemistry - challengeOrdered By: Jayy Vera on 02-08-2024 Cholesterol in HDL [Mass/Vol] 49 mg/dL >40 [facility] Comment on above: The drugs N-Acetylcy steine and Metamizole may falsely depress this assay. Reference Range HDL <40 mg/dL Low HDL Cholesterol HDL >or= 60 mg/dL High HDL Cholesterol Cholesterol in LDL [Mass/Vol] 96 mg/dL 0-130 [facility] CO2 [Moles/Vol] 23.0 mmol/L 21.0-32.0 [facility] Urea nitrogen/Creatinine [Mass ratio] 21.1 mg/mg 10-20 [facility] Laboratory - Hematology and Cell countsOrdered By: Jayy Vera on 02-08-2024 MCH (RBC) [Entitic mass] 27.8 pg 27.0-32.0 [facility] MCHC (RBC) [Mass/Vol] 32.6 g/dL 32-36 [facility] Nucleated RBC/100 WBC (Bld) [Ratio] 0 % 0-5 [facility] Platelet mean volume (Bld) [Entitic vol] 8.9 fL 6.2-12.0 [facility] Platelets (Bld) [#/Vol] 411 10*3/uL 150-450 [facility] No Panel InformationOrdered By: Jayy Vera on 02-08-2024 Estimated Creatinine Clearance Calc 47.95 ml/min [facility] Estimated GFR (MDRD) Amer 94 mL/min >60 [facility] Comment on above: GFR Calc Estimated GFR (MDRD) Non-Af Amer 78 mL/min >60 [facility] Comment on above: Non- GFR Calc VLDL Cholesterol 17 mg/dL 5-40 [facility] RBC Auto (Bld) [#/Vol]Ordere d By: Jayy Vera on 02-08-2024 RBC (Bld) [#/Vol] 4.03 10*6/uL 4.2-5.4 [facility] Serum or plasma calcium willy urement (mass/volume)Ordered By: Jayy Vera on 02-08-2024 Calcium [Mass/Vol] 8.9 mg/dL 8.5-10.1 [facility] Serum or plasma creatinine m easurement (mass/volume)Ordered By: Jayy Vera on 02-08-2024 Creatinine [Mass/Vol] 0.76 mg/dL 0.55-1.02 [facility] Comment on above: The validity of the calculated GFR & GFRAA in patients over 70 years has not been determined. Clinical correlation is essential. Serum or plasma urea nitroge n measurement (mass/volume)Ordered By: Jayy Vera on 02-08-2024 Urea nitrogen [Mass/Vol] 16 mg/dL 7-18 [facility] Thin prep Papanicolaou smear with manual screeningOrdered By: Jayy Vera on 02-08-2024 Thin prep Papanicolaou smear with manual screening 7 5-15 [facility] Absolute lymphocyte countOrd ered By: Anselmo Potts on 02-07-2024 Lymphocytes Auto (Unsp spec) [#/Vol] 1.28 10*3/uL 0.83-4.51 [facility] Activated partial thrombopla stin time (aPTT) in platelet poor plasma by coagulation aOrdered By: Anselmo Potts on 02-07-2024 aPTT Coag (PPP) [Time] 38.9 s 24.1-36.2 [facility] Automated lymphocyte count a s percentage of total leukocytesOrdered By: Anselmo Potts on 02-07-2024 Lymphocytes/100 WBC Auto (Unsp spec) 14.7 % 19-41 [facility] Basophil percentageOrdered B y: Anselmo Potts on 02-07-2024 Basophils/100 WBC (Bld) 0.6 % 0-1 [facility] Chloride [Moles/Vol] 106 mmol/L 98-107 [facility] Eosinophils/100 WBC (Bld) 2.8 % 0-5 [facility] Glucose [Mass/Vol] 153 mg/dL 74-106 [facility] Comment on above: Fasting Glucose resu lt greater than or equal to 126 mg/dL suggests DIABETES MELLITUS per A.D.A. criteria. Hemoglobin (Bld) [Mass/Vol] 11.8 g/dL 12.0-15. 0 [facility] Monocytes/100 WBC (Bld) 6.3 % 0-10 [facility] Neutrophils (Bld) [#/Vol] 6.6 10*3/uL 2.0-7.7 [facility] Neutrophils/100 WBC (Bld) 75.3 % 47-70 [facility] Potassium [Moles/Vol] 3.6 mmol/L 3.5-5.1 [facility] Sodium [Moles/Vol] 138 mmol/L 136-145 [facility] WBC (Bld) [#/Vol] 8.7 10*3/uL 4.4-11.0 [facility] Determination of erythrocyte mean corpuscular volume (MCV)Ordered By: Anselmo Potts on 02-07-2024 MCV (RBC) [Entitic vol] 85.9 fL 81-99 [facility] Erythrocyte distribution wid th ratioOrdered By: Anselmo Potts on 02-07-2024 Erythrocyte distribution width (RBC) [Ratio] 14.1 % 11.6-14.6 [facility] Erythrocyte distribution wid th standard deviationOrdered By: Anselmo Potts on 02-07-2024 Erythrocyte distribution width (RBC) [Entitic vol] 44.7 fL 35.1-43.9 [facility] Hematocrit Auto (Bld) [Volum e fraction]Ordered By: Anselmo Potts on 02-07-2024 Hematocrit (Bld) [Volume fraction] 36.0 % 37-47 [facility] Immature granulocytes/100 WB C Auto (Bld)Ordered By: Anselmo Potts on 02-07-2024 Immature granulocytes/100 WBC (Bld) 0.300 % 0.0-0.9 [facility] Comment on above: IG% - Immature Granu locytes (promyelocytes, myelocytes and metamyelocytes) > 1% indicates that a LEFT SHIFT is Present. Laboratory - Chemistry and C hemistry - challengeOrdered By: Anselmo Potts on 02-07-2024 CO2 [Moles/Vol] 24.0 mmol/L 21.0-32.0 [facility] Urea nitrogen/Creatinine [Mass ratio] 26.2 mg/mg 10-20 [facility] Laboratory - CoagulationOrde red By: Anselmo Potts on 02-07-2024 INR Coag (Bld) [Relative time] 1.1 {INR} [facility] PT Coag (PPP) [Time] 14.3 s 11.7-14.9 [facility] Laboratory - Hematology and Cell countsOrdered By: Anselmo Potts on 02-07-2024 MCH (RBC) [Entitic mass] 28.2 pg 27.0-32.0 [facility] MCHC (RBC) [Mass/Vol] 32.8 g/dL 32-36 [facility] Nucleated RBC/100 WBC (Bld) [Ratio] 0 % 0-5 [facility] Platelet mean volume (Bld) [Entitic vol] 8.8 fL 6.2-12.0 [facility] Platelets (Bld) [#/Vol] 410 10*3/uL 150-450 [facility] No Panel InformationOrdered By: Anselmo Potts on 02-07-2024 Estimated Creatinine Clearance Calc 41.31 ml/min [facility] Estimated GFR (MDRD) Amer 72 mL/min >60 [facility] Comment on above: GFR Calc Estimated GFR (MDRD) Non-Af Amer 60 mL/min >60 [facility] Comment on above: Non- GFR Calc Troponin I High Sensitivity 18 pg/mL 3.0-54.0 [facility] Comment on above: Please Note: New Abena t Units and Gender Specific Reference Ranges. For more information see Policy Stat Procedure [place] High Sensitivity Troponin (TNIH) and attachments. RBC Auto (Bld) [#/Vol]Ordere d By: Anselmo Potts on 02-07-2024 RBC (Bld) [#/Vol] 4.19 10*6/uL 4.2-5.4 [facility] Serum or plasma calcium willy urement (mass/volume)Ordered By: Anselmo Potts on 02-07-2024 Calcium [Mass/Vol] 9.5 mg/dL 8.5-10.1 [facility] Serum or plasma creatinine m easurement (mass/volume)Ordered By: Anselmo Potts on 02-07-2024 Creatinine [Mass/Vol] 0.95 mg/dL 0.55-1.02 [facility] Comment on above: The validity of the calculated GFR & GFRAA in patients over 70 years has not been determined. Clinical correlation is essential. Serum or plasma urea nitroge n measurement (mass/volume)Ordered By: Anselmo Potts on 02-07-2024 Urea nitrogen [Mass/Vol] 25 mg/dL 7-18 [facility] Thin prep Papanicolaou smear with manual screeningOrdered By: Anselmo Potts on 02-07-2024 Thin prep Papanicolaou smear with manual screening 135 mg/dL 74-106 [facility] Comment on above: MANAGEMENT OF PATIEN T CARE PER NURSING PROTOCOL Thin prep Papanicolaou smear with manual screening 8 5-15 [facility] Basophil percentageOrdered B y: Clyde Downing on 09-12-2023 Chloride [Moles/Vol] 108 mmol/L 98-107 [facility] Cholesterol [Mass/Vol] 234 mg/dL <200 [facility] Comment on above: <200 mg/dL Desirable 200-240 mg/dL Borderline >240 mg/dL High Risk Glucose [Mass/Vol] 106 mg/dL 74-106 [facility] Comment on above: Fasting Glucose resu lt from 100 to 125 mg/dL suggests IMPAIRED HOMEOSTASIS per A.D.A. criteria. Potassium [Moles/Vol] 4.3 mmol/L 3.5-5.1 [facility] Sodium [Moles/Vol] 142 mmol/L 136-145 [facility] Triglyceride [Mass/Vol] 92 mg/dL <[address] [facility] Comment on above: The drugs N-Acetylcy steine and Metamizole may falsely depress this assay.Serum Triglycerides Reference Interval Normal <150 mg/dL Borderline high 150 - 199 mg/dL High 200 - 499 mg/dL Very High > or = 500 mg/dL Laboratory - Chemistry and C hemistry - challengeOrdered By: Clyde Downing on 09-12-2023 CO2 [Moles/Vol] 28.0 mmol/L 21.0-32.0 [facility] Urea nitrogen/Creatinine [Mass ratio] 22.8 mg/mg 10-20 [facility] No Panel InformationOrdered By: Clyde Downing on 09-12-2023 Estimated GFR (MDRD) Amer 85 mL/min >60 [facility] Comment on above: GFR Calc Estimated GFR (MDRD) Non-Af Amer 70 mL/min >60 [facility] Comment on above: Non- GFR Calc Serum or plasma calcium willy urement (mass/volume)Ordered By: Clyde Downing on 09-12-2023 Calcium [Mass/Vol] 9.0 mg/dL 8.5-10.1 [facility] Serum or plasma cholesterol in HDL measurement (mass/volume)Ordered By: Clyde Downing on 09-12-2023 Cholesterol in HDL [Mass/Vol] 77 mg/dL >40 [facility] Comment on above: The drugs N-Acetylcy steine and Metamizole may falsely depress this assay. Reference Range HDL <40 mg/dL Low HDL Cholesterol HDL >or= 60 mg/dL High HDL Cholesterol Serum or plasma cholesterol in VLDL measurement (mass/volume)Ordered By: Clyde Downing on 09-12-2023 Cholesterol in VLDL [Mass/Vol] 18 mg/dL 5-40 [facility] Serum or plasma creatinine m easurement (mass/volume)Ordered By: Clyde Downing on 09-12-2023 Creatinine [Mass/Vol] 0.83 mg/dL 0.55-1.02 [facility] Comment on above: The validity of the calculated GFR & GFRAA in patients over 70 years has not been determined. Clinical correlation is essential. Serum or plasma low density lipoprotein (LDL) cholesterol measurement (mass/volume)Ordered By: Clyde Downing on 09-12-2023 Cholesterol in LDL [Mass/Vol] 139 mg/dL 0-130 [facility] Serum or plasma urea nitroge n measurement (mass/volume)Ordered By: Clyde Downing on 09-12-2023 Urea nitrogen [Mass/Vol] 19 mg/dL 7-18 [facility] Thin prep Papanicolaou smear with manual screeningOrdered By: Clyde Downing on 09-12-2023 Thin prep Papanicolaou smear with manual screening 6 5-15 [facility] Basophil percentageon 2021 Chloride [Moles/Vol] 107 mmol/L 98-107 [facility] Work Phone: Cholesterol [Mass/Vol] 233 mg/dL <200 [facility] Work Phone: Comment on above: <200 mg/dL Desirable 200-240 mg/dL Borderline >240 mg/dL High Risk Glucose [Mass/Vol] 104 mg/dL 74-106 [facility] Work Phone: Comment on above: Fasting Glucose resu lt from 100 to 125 mg/dL suggests IMPAIRED HOMEOSTASIS per A.D.A. criteria. Potassium [Moles/Vol] 4.1 mmol/L 3.5-5.1 [facility] Work Phone: Sodium [Moles/Vol] 139 mmol/L 136-145 [facility] Work Phone: Triglyceride [Mass/Vol] 105 mg/dL <[address] [facility] Work Phone: Comment on above: The drugs N-Acetylcy steine and Metamizole may falsely depress this assay.Serum Triglycerides Reference Interval Normal <150 mg/dL Borderline high 150 - 199 mg/dL High 200 - 499 mg/dL Very High > or = 500 mg/dL Laboratory - Chemistry and C hemistry - challengeon 09-15-2022 CO2 [Moles/Vol] 25.0 mmol/L 21.0-32.0 [facility] Work Phone: Urea nitrogen/Creatinine [Mass ratio] 24.6 mg/mg 10-20 [facility] Work Phone: No Panel Informationon 09-15 Estimated GFR (MDRD) Amer 82 mL/min >60 [facility] Work Phone: Comment on above: GFR Calc Estimated GFR (MDRD) Non-Af Amer 68 mL/min >60 [facility] Work Phone: Comment on above: Non- GFR Calc Serum or plasma calcium willy urement (mass/volume)on 09-15-2022 Calcium [Mass/Vol] 9.1 mg/dL 8.5-10.1 [facility] Work Phone: Serum or plasma cholesterol in HDL measurement (mass/volume)on 09-15-2022 Cholesterol in HDL [Mass/Vol] 69 mg/dL >40 [facility] Work Phone: Comment on above: The drugs N-Acetylcy steine and Metamizole may falsely depress this assay. Reference Range HDL <40 mg/dL Low HDL Cholesterol HDL >or= 60 mg/dL High HDL Cholesterol Serum or plasma cholesterol in VLDL measurement (mass/volume)on 09-15-2022 Cholesterol in VLDL [Mass/Vol] 21 mg/dL 5-40 [facility] Work Phone: Serum or plasma creatinine m easurement (mass/volume)on 09-15-2022 Creatinine [Mass/Vol] 0.85 mg/dL 0.55-1.02 [facility] Work Phone: Comment on above: The validity of the calculated GFR & GFRAA in patients over 70 years has not been determined. Clinical correlation is essential. Serum or plasma low density lipoprotein (LDL) cholesterol measurement (mass/volume)on 09-15-2022 Cholesterol in LDL [Mass/Vol] 143 mg/dL 0-130 [facility] Work Phone: Serum or plasma urea nitroge n measurement (mass/volume)on 09-15-2022 Urea nitrogen [Mass/Vol] 21 mg/dL 7-18 [facility] Work Phone: Thin prep Papanicolaou smear with manual screeningon 09-15-2022 Thin prep Papanicolaou smear with manual screening 7 5-15 [facility] Work Phone: Basophil percentageon 2021 Chloride [Moles/Vol] 104 mmol/L 98-107 [facility] Work Phone: Glucose [Mass/Vol] 91 mg/dL 74-106 [facility] Work Phone: Potassium [Moles/Vol] 4.1 mmol/L 3.5-5.1 [facility] Work Phone: Sodium [Moles/Vol] 138 mmol/L 136-145 [facility] Work Phone: Laboratory - Chemistry and C hemistry - challengeon 03-17-2022 CO2 [Moles/Vol] 30.0 mmol/L 21.0-32.0 [facility] Work Phone: Urea nitrogen/Creatinine [Mass ratio] 26.5 mg/mg 10-20 [facility] Work Phone: No Panel Informationon 03-17 Estimated GFR (MDRD) Amer 73 mL/min >60 [facility] Work Phone: Comment on above: GFR Calc Estimated GFR (MDRD) Non-Af Amer 61 mL/min >60 [facility] Work Phone: Comment on above: Non- GFR Calc Serum or plasma calcium willy urement (mass/volume)on 03-17-2022 Calcium [Mass/Vol] 9.9 mg/dL 8.5-10.1 [facility] Work Phone: Serum or plasma creatinine m easurement (mass/volume)on 03-17-2022 Creatinine [Mass/Vol] 0.94 mg/dL 0.55-1.02 [facility] Work Phone: Comment on above: The validity of the calculated GFR & GFRAA in patients over 70 years has not been determined. Clinical correlation is essential. Serum or plasma urea nitroge n measurement (mass/volume)on 03-17-2022 Urea nitrogen [Mass/Vol] 25 mg/dL 7-18 [facility] Work Phone: Thin prep Papanicolaou smear with manual screeningon 03-17-2022 Thin prep Papanicolaou smear with manual screening 4 02-14 [facility] Work Phone: Vital Signs Date Time Vital Sign Value Performing Clinician Faci lity 10-31-2024 07:56-0500 Body temperature 97.7 [degF] Rosales Zelaya MD Work Phone: [facility] 10-31-2024 07:56-0500 Diastolic blood pressure 70 mm[Hg] Rosales Zelaya MD Work Phone: [facility] 10-31-2024 07:56-0500 Heart rate 85 /min Rosales Zelaya MD Work Phone: [facility] 10-31-2024 07:56-0500 Respiratory rate 20 /min Rosales Zelaya MD Work Phone: [facility] 10-31-2024 07:56-0500 SaO2% (BldA) [Mass fraction] 99 % Rosales Zelaya MD Work Phone: [facility] 10-31-2024 07:56-0500 Systolic blood pressure 165 mm[Hg] Rosales Zelaya MD Work Phone: [phone] [address] 10-30-2024 06:00-0500 Body mass index (BMI) [Ratio] 24.41 kg/m2 Rosales Zelaya MD Work Phone: [phone] [address] 10-30-2024 06:00-0500 Body weight 58.6 kg Rosales Zelaya MD Work Phone: [phone] [address] 10-27-2024 19:30-0500 Body temperature 97.2 [degF] Dr. Clyde Downing MD Work Phone: [facility] 10-27-2024 19:30-0500 Diastolic blood pressure 60 mm[Hg] Dr. Clyde Downing MD Work Phone: [facility] 10-27-2024 19:30-0500 Heart rate 82 /min Dr. Clyde Downing MD Work Phone: [facility] 10-27-2024 19:30-0500 Respiratory rate 14 /min Dr. Clyde Downing MD Work Phone: [facility] 10-27-2024 19:30-0500 SaO2% (BldA) [Mass fraction] 98 % Dr. Clyde Downing MD Work Phone: [facility] 10-27-2024 19:30-0500 Systolic blood pressure 110 mm[Hg] Dr. Clyde Downing MD Work Phone: [facility] 10-27-2024 16:37-0500 Body height 154.[address] Clyde Downing MD Work Phone: [facility] 10-27-2024 16:37-0500 Body mass index (BMI) [Ratio] 24.7 kg/m2 Dr. Clyde Downing MD Work Phone: [facility] 10-27-2024 16:37-0500 Body weight 59.[address] Clyde Downing MD Work Phone: [facility] 07-30-2024 11:36-0400 Body temperature 97.3 [degF] Elizabet Foreman MD Work Phone: [facility] 07-30-2024 11:36-0400 Diastolic blood pressure 71 mm[Hg] Elizabet Foreman MD Work Phone: [facility] 07-30-2024 11:36-0400 Heart rate 94 /min Elizabet Foreman MD Work Phone: [facility] 07-30-2024 11:36-0400 Respiratory rate 16 /min Elizabet Foreman MD Work Phone: [facility] 07-30-2024 11:36-0400 SaO2% (BldA) [Mass fraction] 97 % Elizabet Foreman MD Work Phone: [facility] 07-30-2024 11:36-0400 Systolic blood pressure 138 mm[Hg] Elizabet Foreman MD Work Phone: [facility] 07-28-2024 07:56-0400 Body height 154.9 cm Elizabet Foreman MD Work Phone: [facility] 07-28-2024 07:56-0400 Body mass index (BMI) [Ratio] 26.41 kg/m2 Elizabet Foreman MD Work Phone: [facility] 07-28-2024 07:56-0400 Body weight 63.4 kg Elizabet Foreman MD Work Phone: [facility] 02-08-2024 16:28-0400 Body mass index (BMI) [Ratio] 26.7 kg/m2 Dr. Clyde Downing Work Phone: [facility] 02-08-2024 14:30-0400 Body temperature 98.3 [degF] Dr. Clyde Downing Work Phone: [facility] 02-08-2024 14:30-0400 Diastolic blood pressure 75 mm[Hg] Dr. Clyde Downing Work Phone: [facility] 02-08-2024 14:30-0400 Heart rate 96 /min Dr. Clyde Downing Work Phone: [facility] 02-08-2024 14:30-0400 Respiratory rate 18 /min Dr. Clyde Downing Work Phone: [facility] 02-08-2024 14:30-0400 SaO2% (BldA) [Mass fraction] 98 % Dr. Clyde Downing Work Phone: [facility] 02-08-2024 14:30-0400 Systolic blood pressure 148 mm[Hg] Dr. Clyde Downing Work Phone: [facility] 02-07-2024 15:18-0400 Body height [address] Clyde Dwoning Work Phone: [phone] [address] 02-07-2024 15:18-0400 Body weight 65.[address] Clyde Downing Work Phone: [facility] 02-07-2024 13:27-0400 Body temperature 98 [degF] Dr. Clyde Downing Work Phone: [facility] 02-07-2024 13:27-0400 Diastolic blood pressure 81 mm[Hg] Dr. Clyde Downing Work Phone: [facility] 02-07-2024 13:27-0400 Heart rate 82 /min Dr. Clyde Downing Work Phone: [facility] 02-07-2024 13:27-0400 Respiratory rate 17 /min Dr. Clyde Downing Work Phone: [facility] 02-07-2024 13:27-0400 SaO2% (BldA) [Mass fraction] 94 % Dr. Clyde Downing Work Phone: [facility] 02-07-2024 13:27-0400 Systolic blood pressure 126 mm[Hg] Dr. Clyde Downing Work Phone: [facility] 02-07-2024 13:[id number] Body height [address] Clyde Downing Work Phone: [facility] 02-07-2024 13:0400 Body mass index (BMI) [Ratio] 26.7 kg/m2 Dr. Clyde Downing Work Phone: [facility] 02-07-2024 13:040 Body weight 65.[address] Clyde Downing Work Phone: [facility] Encounters Encounter Date Encounter Type Care Provider Facility Start: 02-22-2025 Non-patient / Non-visit Dr. Ricardo Orr MD -[facility] Start: 02-22-2025 End: 02-22-[address] Clyde Downing MD Work Phone: [facility] Work Phone: Start: 02-22-2025 End: 02-22-2025 Patient encounter procedure Thania STEPHENSON -Cardiovascular Services Work Phone: Start: 02-22-2025 End: 02-22-2025 ambulatory Thania Wisdom Facility:[facility] Start: 01-07-2025 End: 01-07-[address] Clyde Downing MD Work Phone: [facility] Work Phone: Start: 01-07-2025 End: 01-07-[address] Clyde Downing MD -Laboratory, [facility] Start: 01-07-2025 End: 01-07-2025 ambulatory Clyde Downing Facility:[facility] Start: 10-27-2024 End: 10-31-2024 Evaluation and management of inpatient Rosales Zelaya MD Work Phone: [id number] Comment on above: Stroke Start: 10-27-2024 End: 10-27-2024 Emergency department patient visit Dr. Song Yanez DO -Emergency Department Work Phone: Start: 09-24-2024 ambulatory Thania Wisdom Facility:[facility] Start: 09-24-2024 Non-patient / Non-visit Dr. Ricardo Orr MD -[facility] Start: 09-24-2024 End: 09-24-2024 Patient encounter procedure Thania Wisdom [place] -Cardiovascular Services Work Phone: Start: 09-24-2024 End: 09-24-2024 ambulatory Thania Wisdom Facility:[facility] Start: 09-14-2024 End: 09-14-[address] Clyde Downing MD -[facility] Start: 09-14-2024 End: 09-14-2024 ambulatory Clyde Downing Facility:[facility] Start: 08-03-2024 End: 08-03-2024 ambulatory Clyde Downing Facility:[facility] Start: 07-27-2024 End: 07-30-2024 Evaluation and management of inpatient Elizabet Foreman MD Work Phone: [phone] Comment on above: Stroke Start: 07-27-2024 End: 07-27-2024 Emergency department patient visit Clyde Downing Facility:[facility] Start: 07-27-2024 End: 07-27-2024 ambulatory Clyde Downing Facility:[facility] Start: 06-18-2024 End: 06-18-2024 ambulatory Clyde Downing Facility:[facility] Start: 02-08-2024 Non-patient / Non-visit Dr. Clyde Downing Work Phone: [facility] Work Phone: Start: 02-08-2024 Non-patient / Non-visit Dr. Clyde Downing Work Phone: [facility] Start: 02-07-2024 Non-patient / Non-visit Dr. Clyde Downing Work Phone: [facility] Start: 02-07-2024 Non-patient / Non-visit Dr. Clyde Downing Work Phone: [facility] Work Phone: Start: 02-07-2024 End: 02-08-2024 Evaluation and management of inpatient Dr. Clyde Downing Work Phone: [facility]-Intensive Care Unit Work Phone: Start: 01-16-2024 End: 01-16-[address] Clyde Downing Work Phone: [facility] Work Phone: Start: 11-07-2023 End: 11-07-[address] Clyde Downing Work Phone: [facility] Work Phone: Start: 09-12-2023 End: 09-12-[address] Clyde Downing Work Phone: [facility] Work Phone: Start: 09-12-2023 End: 09-12-[address] Clyde Downing Work Phone: [facility] Start: 06-13-2023 End: 06-13-[address] Clyde Downing Work Phone: [facility] Work Phone: Start: 09-15-2022 End: 09-15-[address] Clyde Downing Work Phone: [facility] Work Phone: Start: 09-15-2022 End: 09-15-[address] Clyde Downing Work Phone: [facility] Start: 08-16-2022 End: 08-16-[address] Clyde Downing Work Phone: [facility] Start: 03-17-2022 End: 03-17-[address] Clyde Downing Work Phone: [facility] Start: 12-07-2021 End: 12-07-[address] Clyde Downing Work Phone: [facility] Procedures Date Procedure Procedure Detail Performing Clinician Start: 10-31-2024 CBC AND ELECTRONIC DIFF Rosales Martinez MD Work Phone: Start: 10-31-2024 Complete blood count with white cell differential, automated Rosales Martinez MD Work Phone: Start: 10-31-2024 Creatinine blood Charlie Martinez MD Work Phone: Start: 10-30-2024 CBC AND ELECTRONIC DIFF Rosales Martinez MD Work Phone: Start: 10-30-2024 Complete blood count with white cell differential, automated Rosales Martinez MD Work Phone: Start: 10-30-2024 Hemoglobin glycosyla silvano a1c Mariano Landaverde MD Work Phone: Start: 10-30-2024 Lipid panel Mariano drew MD Work Phone: Start: 10-29-2024 Mri brain brain stem w/o contrast material Mariano Landaverde MD Work Phone: Start: 10-29-2024 CBC AND ELECTRONIC DIFF Rosales Martinez MD Work Phone: Start: 10-29-2024 Complete blood count with white cell differential, automated Rosales Martinez MD Work Phone: Start: 10-29-2024 Creatinine blood Charlie Martinez MD Work Phone: Start: 10-29-2024 CARDIAC RHYTHM Other Ot her OT Start: 10-29-2024 Ct head/brain w/o co ntrast material Rosales Martinez MD Work Phone: Start: 10-28-2024 Assay of magnesium Kenrick Prince MD Work Phone: Start: 10-27-2024 Radiologic exam ches t single view Mariano Landaverde MD Work Phone: Start: 10-27-2024 EXTRA MICRO Rigo Bustos MD Work Phone: Start: 10-27-2024 URINALYSIS REFLEX TO CULTURE Rigo Bustos MD Work Phone: Start: 10-27-2024 Urnls dip stick/tabl et reagent auto microscopy Rigo Bustos MD Work Phone: Start: 10-27-2024 CBC AND ELECTRONIC DIFF Demarco Mei MD Work Phone: Start: 10-27-2024 Complete blood count with white cell differential, automated Demarco Mei MD Work Phone: Start: 10-27-2024 Fibrinogen activity Obduliao diane Mei MD Work Phone: Start: 10-27-2024 GOLD TOP TUBE Demarco Mei MD Work Phone: Start: 10-27-2024 End: 10-27-2024 Hepatic function panel Demarco maravilla MD Work Phone: Start: 10-27-2024 LAVENDER TOP TUBE Brandie Mei MD Work Phone: Start: 10-27-2024 LT BLUE TOP TUBE Demarco Mei MD Work Phone: Start: 10-27-2024 MINT GREEN TOP TUBE Obduliao diane Mei MD Work Phone: Start: 10-27-2024 RAINBOW DRAW Demarco sin MD Work Phone: Start: 10-27-2024 Ct head/brain w/o co ntrast material Demarco Mei MD Work Phone: Start: 10-27-2024 Glucose measurement, blood Ginger Sevilla MD Work Phone: Start: 10-27-2024 Plain chest X-ray Dr. Martha oDwning MD Work Phone: Start: 10-27-2024 CT of head without contrast Dr. Clyde Downing MD Work Phone: Start: 10-27-2024 CT angiography of he ad and neck Dr. Clyde Downing MD Work Phone: Start: 10-27-2024 CT of head without contrast Dr. Clyde Downing MD Work Phone: Start: 07-30-2024 Creatinine blood Markell Denton DO Work Phone: Start: 07-29-2024 GENERAL PROCEDURE Matty Kaminski MD Work Phone: Start: 07-29-2024 EXTRA MICRO Josias prather MD Work Phone: Start: 07-29-2024 URINALYSIS REFLEX TO CULTURE Josias Joseph MD Work Phone: Start: 07-29-2024 Urnls dip stick/tabl et reagent auto microscopy Josias Joseph MD Work Phone: Start: 07-29-2024 Sedimentation rate r bc automated Josias Joseph MD Work Phone: Start: 07-28-2024 Echo tthrc r-t 2d w/wom-mode compl spec&colr d Donn Denton DO Work Phone: Start: 07-28-2024 Bilirubin direct Markell Denton DO Work Phone: Start: 07-28-2024 C-reactive protein Kinga Joseph MD Work Phone: Start: 07-27-2024 Mri brain brain stem w/o contrast material Donn Denton DO Work Phone: Start: 07-27-2024 MRI PLAIN FILM FOR N EURO EXAM Mani Esparza MD Start: 07-27-2024 Ct head/brain w/o co ntrast material Donn Denton DO Work Phone: Start: 02-07-2024 MRI of brain without contrast Dr. Clyde Downing Work Phone: Start: 02-07-2024 Plain chest X-ray Dr. Martha Downing Work Phone: Start: 02-07-2024 CT angiography of he ad and neck Dr. Clyde Downing Work Phone: Start: 02-07-2024 CT of head without contrast Dr. Clyde Downing Work Phone: Plan of Treatment Date Care Activity Detail Author Start: 02-13-2030 Tetanus vaccination TETANUS [facility] Start: 10-31-2025 Potassium [Moles/vol ume] in Serum or Plasma POTASSIUM [facility] Start: 07-30-2025 Potassium [Moles/vol ume] in Serum or Plasma POTASSIUM [facility] Start: 10-31-2024 End: 10-31-2025 Cardiac telemetry MOBILE CARDIAC TELEMETRY ECG Routine Cerebrovascular accident (CVA), unspecified mechanism Other cerebrovascular vasospasm and vasoconstriction Expected: 10/31/2024, Expires: 10/31/2025 [facility] Comment on above: Expected: 10/31/2024 , Expires: 10/31/2025 Start: 10-27-2024 [facility] Start: 10-27-2024 Bleeding precautions [facility] Start: 10-27-2024 Consultation [facility] Start: 10-27-2024 End: 10-27-2024 Oxygen therapy [facility] Start: 10-27-2024 [facility] Start: 02-08-2024 Patient discharge [facility] Start: 02-08-2024 End: 02-08-2024 Referral to service [facility] Start: 02-08-2024 Blood chemistry [facility] Start: 02-07-2024 Application of intermittent pneumatic compression device [facility] Start: 02-07-2024 Following clinical pathway protocol [facility] Start: 02-07-2024 Ambulation without limitation [facility] Start: 02-07-2024 Aspiration precautions [facility] Start: 02-07-2024 Assessment of risk o f venous thromboembolism [facility] Start: 02-07-2024 Cardiac monitoring [facility] Start: 02-07-2024 Catheterization of vein [facility] Start: 02-07-2024 Consultation [facility] Start: 02-07-2024 Continuous pulse oximetry [facility] Start: 02-07-2024 Elevation of head of bed [facility] Start: 02-07-2024 Exercises [facility] Start: 02-07-2024 Insertion of cathete r into peripheral vein [facility] Start: 02-07-2024 Measuring intake and output [facility] Start: 02-07-2024 Notification of physician [facility] Start: 02-07-2024 Oxygen therapy [facility] Start: 02-07-2024 Patient referral to dietitian [facility] Start: 02-07-2024 Providing care accor ding to standard [facility] Start: 02-07-2024 Referral to occupati onal therapist [facility] Start: 02-07-2024 Referral to service [facility] Start: 02-07-2024 Speech therapy assessment [facility] Start: 02-07-2024 Telemedicine consult ation with patient [facility] Start: 02-07-2024 Tobacco use cessatio n education [facility] Start: 02-07-2024 End: 02-07-2024 [facility] Start: 02-07-2024 Vital signs measurements [facility] Start: 02-07-2024 Admission procedure [facility] Start: 02-07-2024 Verification routine [facility] Start: 02-07-2024 MRI of brain without contrast Brain without Contrast [facility] Start: 2007 Pneumococcal vaccination PNEUM OCOCCAL VACCINE SERIES (1 of 1 - PCV) [facility] Start: 1987 Screening for malign ant neoplasm of colon COLORECTAL CANCER SCREENING DISCUSSION [facility] Start: 1982 Screening for malign ant neoplasm of breast MAMMOGRAM SCREENING DISCUSSION [facility] Start: 1963 Screening for malign ant neoplasm of cervix CERVICAL CANCER SCREENING DISCUSSION [facility] Start: 1942 Screening for osteoporosis DEXA SCAN DISCUSSION [facility] Anion gap measurement [facility] BUN/Creatinine ratio [facility] Calcium [Mass/volume ] in Serum or Plasma [facility] Carbon dioxide, tota l [Moles/volume] in Serum or Plasma [facility] Cardiac event recording [facility] Chloride [Moles/volu me] in Serum or Plasma [facility] Cholesterol [Mass/vo lume] in Serum or Plasma [facility] Cholesterol in HDL [Mass/volume] in Serum or Plasma [facility] Cholesterol in LDL [Mass/volume] in Serum or Plasma [facility] Creatinine [Moles/vo lume] in Serum or Plasma [facility] End: 10-29-2024 Echocardiography ECHOCARDIOGRAM Echocardiography Routine One Time for 1 Occurrences starting 10/29/2024 until 10/29/2024 [facility] Work Phone: Comment on above: One Time for 1 Occur rences starting 10/29/2024 until 10/29/2024 Erythrocyte mean corpuscular volume determination [facility] Glucose [Mass/volume ] in Serum or Plasma [facility] Hematocrit [Volume Fraction] of Blood [facility] Hemoglobin [Mass/vol ume] in Blood [facility] Leukocytes [#/volume ] in Blood [facility] Mean corpuscular hemoglobin concentration determination [facility] Mean corpuscular hemoglobin determination [facility] Measurement of renal function [facility] Neutrophil count [facility] Neutrophil percent differential count [facility] Patient Education Discharge Inst ructions for Stroke [facility] Work Phone: Patient referral [facility] Work Phone: Platelets [#/volume] in Blood [facility] Potassium [Moles/vol ume] in Serum or Plasma [facility] Red blood cell count [facility] Red cell distributio n width determination [facility] Sodium [Moles/volume ] in Serum or Plasma [facility] End: 10-27-2024 Standard ECG [facility] Comment on above: One Time for 1 Occur rences starting 10/27/2024 until 10/27/2024 Triglycerides measurement [facility] Urea nitrogen [Mass/volume] in Serum or Plasma [facility] VLDL cholesterol measurement [facility] Payers Date Payer Category Payer Self-pay [id number] 2023 Medicare [employer] HMO [place] PPO [employer] PPO [id number] 2023-Present [address] [address] [place] [address] [id number] 2023 Unknown [id number] 2007 Medicare [id number] 1940 Unknown [id number] 1940 Unknown [id number] Unknown [id number] Unknown [id number] Unknown [id number] Unknown [id number] Unknown [id number] Unknown [id number] Unknown [id number] Unknown [id number] Unknown [id number] Unknown [id number] Unknown [id number] Unknown [id number] Unknown [id number] Social History Date Type Detail Facility Start: 12-07-2021 End: 10-27-2024 Tobacco smoking status NHIS Unknown if ever smoked [facility] Start: 1940 Sex Assigned At Female W [facility] Start: 07-29-2024 End: 10-30-2024 History of Social function [facility] Start: 07-29-2024 End: 10-30-2024 [facility] Utilities [facility] Has the [employer], or [employer] threatened to shut off services in your home in past 12Mo No [facility] (I/We) worried sally er (my/our) food would run out before (I/we) got money to buy more. Never true [facility] In the past 12 month s, has lack of transportation kept you from medical appointments or from getting medications? No [facility] Start: 1940 Sex assigned at Not on file [facility] Start: 10-27-2024 Tobacco smoking stat NHIS Never smoked tobacco [facility] Start: 10-27-2024 Tobacco use and exposure Smoke less tobacco non-user [facility] Start: 10-29-2024 Alcoholic beverage intake Life time non-drinker (finding) [facility] Start: 01-11-2025 Sex Female (finding) [facility] Goals Date Patient Goal Desired Activity /State Functional Status Date Assessment Result Facility 02-08-2024 Functional status Ambulates;Bedside Commo de [facility] Work Phone: Mental Status Date Assessment Result Facility 10-27-2024 Cognitive function Voice/Name [facility] Work Phone: 02-08-2024 Cognitive function Voice/Name [facility] Work Phone: 02-07-2024 Cognitive function Voice/Name [facility] Work Phone: Clinical Notes 02-07-2024 to 10-31-2024 Nursing Notes - Verónica Portillo RN - 10/31/2024 11:51 AM ESTNursing Notes - Verónica Portillo RN - 10/31/2024 11:51 AM ESTTreatment Plan - Felicitas Baez RN - 10/31/2024 10:11 AM EST Note Date & Type Note Facility 10-31-2024 Nurse Note Stroke patient education has been reviewed and all required elements are complete and personalized. Care plan documentation complete and patient adequate for discharge. Next dose medication details have been added to the AVS as appropriate. [facility] 10-31-2024 Miscellaneous Notes Stroke patient education has been reviewed and all required elements are complete and personalized. Care plan documentation complete and patient adequate for discharge. Next dose medication details have been added to the AVS as appropriate. Images from the original note were not included. I visited with Poonam Veloz this morning as the Stroke Nurse Navigator for the Comprehensive Stroke Center at the [facility]. I provided a BEFAST magnet and together we reviewed the signs and symptoms of a stroke and when to call 911. I indicated that I would like to call post hospitalization to follow up with the patient and inquired whom best to contact (patient) as well as the best number to reach this person. I attempted to schedule Poonam Veloz for a follow-up visit with our neurology department; however, she requests that we send referrals to [facility], which I have. I then left my card assuring the patient that they should feel free to contact me with any questions. Lastly, [employer] BodyGuardian Mini+ placed on patient. Education provided and all questions answered. Instructions added to AVS and updated bedside RN. MAXWELL Stephenson, RN Stroke Nurse Navigator [facility] [place] [address] Office [email or web address] Problem: Adult Inpatient Plan of Care Goal: Plan of Care Review Outcome: Adequate for Discharge Goal: Patient-Specific Goal (Individualized) Outcome: Adequate for Discharge Goal: Absence of Hospital-Acquired Illness or Injury Outcome: Adequate for Discharge Goal: Optimal Comfort and Wellbeing Outcome: Adequate for Discharge Goal: Readiness for Transition of Care 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: Thrombolytic Therapy Goal: Absence of Bleeding Outcome: Adequate for Discharge Goal: Unobstructed Breathing 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: Stroke, Ischemic (Includes Transient Ischemic Attack) Goal: Optimal Coping Outcome: Adequate for Discharge Goal: Effective Bowel Elimination Outcome: Adequate for Discharge Goal: Optimal Cerebral Tissue Perfusion Outcome: Adequate for Discharge Goal: Optimal Cognitive Function Outcome: Adequate for Discharge Goal: Improved Communication Skills Outcome: Adequate for Discharge Goal: Optimal Functional Ability Outcome: Adequate for Discharge Goal: Optimal Nutrition Intake Outcome: Adequate for Discharge Goal: Effective Oxygenation and Ventilation Outcome: Adequate for Discharge Goal: Improved Sensorimotor Function Outcome: Adequate for Discharge Goal: Safe and Effective Swallow Outcome: Adequate for Discharge Goal: Effective Urinary Elimination 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: Swallowing Impairment Goal: Optimal Eating/Swallowing without Aspiration 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: OT - ADLs Goal: Lower Body Dressing - Patient will complete lower body dressing tasks with supervision using adaptive equipment/compensatory strategies as needed for improved ability to complete self-care activities. Outcome: Adequate for Discharge Goal: Bathing - Patient will perform full body bathing routine with supervision while seated for improved ability to complete self-care activities 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: OT - Transfers Goal: Transfers Toilet/ Bedside Commode - Patient will transfer to/from toilet/bedside commode with supervision for improved ability to safely complete ADLs. 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: OT - Balance Goal: Balance - Standing - Patient will perform 6-8 minutes of functional task in standing with supervision and good balance to promote safety and improved balance required for self-care activities. 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: OT - Strength/ROM Goal: Strength/ROM ADL Participation - Patient will participate in UE exercise program with independence to prevent deconditioning while in hospital and to max UE ROM/Coordination/strength for ADLs. 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: OT - Cognition Goal: Cognition Home Maintenance - Patient will complete simulated home maintenance task: medication management with independence and 100% accuracy. 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: PT - General Goals Goal: Sit <-> Stand Transfers - Patient will perform sit to/from stand transfers with modified independence and least restrictive device in order to improve functional mobility and safety. Outcome: Adequate for Discharge Goal: Ambulation - Patient will ambulate 500 feet with modified independence and least restrictive device to improve ability to safely navigate home and community. Outcome: Adequate for Discharge Goal: Stairs - Patient will ascend/descend 2 stairs with modified independence, with least restrictive assistive device, and no railing(s) to improve ability to safely navigate home and community. 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: PT - Outcome Measure Goals Goal: DGI - Patient will score 19 or greater on the Dynamic Gait Index (DGI) in order to demonstrate improved walking balance and reduced fall risk. 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 Goal: Ongoing Assessment - Patient will participate in ongoing dynamic assessment of motor speech, expressive/receptive language, and cognitive-linguistic skills across 1 session to better assess deficits and most appropriately guide POULTRY RAISER plan of care 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 - Language Goal: Command Following - Patient will complete 2-step commands with 90% accuracy with moderate cues in order to improve direction following for functional gains in ability to participate more independently in care Outcome: Adequate for Discharge Goal: Word Retrieval Strategies for Conversation - Patient will state and/or demonstrate understanding of trained strategies targeting anomia with no more than moderate cues to use strategies during functional conversation to reduce communication breakdowns Outcome: Adequate for Discharge Goal: Repetition - Patient will read or repeat functional words/phrases related to wants/needs in this setting, (e.g., name, date of , functional requests, etc.) to 95% success, with moderate cues for improved ability to communicate wants/needs 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 Goal: Ongoing Assessment - Patient will participate in ongoing dynamic assessment of motor speech, expressive/receptive language, and cognitive-linguistic skills across 1 session to better assess deficits and most appropriately guide POULTRY RAISER plan of care Outcome: Ongoing Problem: POULTRY RAISER - Language Goal: Command Following - Patient will complete 2-step commands with 90% accuracy with moderate cues in order to improve direction following for functional gains in ability to participate more independently in care Outcome: Ongoing Goal: Word Retrieval Strategies for Conversation - Patient will state and/or demonstrate understanding of trained strategies targeting anomia with no more than moderate cues to use strategies during functional conversation to reduce communication breakdowns Outcome: Ongoing Goal: Repetition - Patient will read or repeat functional words/phrases related to wants/needs in this setting, (e.g., name, date of , functional requests, etc.) to 95% success, with moderate cues for improved ability to communicate wants/needs Outcome: Ongoing Problem: OT - ADLs Goal: Lower Body Dressing - Patient will complete lower body dressing tasks with supervision using adaptive equipment/compensatory strategies as needed for improved ability to complete self-care activities. Outcome: Ongoing Goal: Bathing - Patient will perform full body bathing routine with supervision while seated for improved ability to complete self-care activities Outcome: Ongoing Problem: OT - Transfers Goal: Transfers Toilet/ Bedside Commode - Patient will transfer to/from toilet/bedside commode with supervision for improved ability to safely complete ADLs. Outcome: Ongoing Problem: OT - Balance Goal: Balance - Standing - Patient will perform 6-8 minutes of functional task in standing with supervision and good balance to promote safety and improved balance required for self-care activities. Outcome: Ongoing Problem: OT - Strength/ROM Goal: Strength/ROM ADL Participation - Patient will participate in UE exercise program with independence to prevent deconditioning while in hospital and to max UE ROM/Coordination/strength for ADLs. Outcome: Ongoing Problem: OT - Cognition Goal: Cognition Home Maintenance - Patient will complete simulated home maintenance task: medication management with independence and 100% accuracy. Outcome: Ongoing Problem: PT - General Goals Goal: Sit <-> Stand Transfers - Patient will perform sit to/from stand transfers with modified independence and least restrictive device in order to improve functional mobility and safety. Outcome: Ongoing Goal: Ambulation - Patient will ambulate 500 feet with modified independence and least restrictive device to improve ability to safely navigate home and community. Outcome: Ongoing Goal: Stairs - Patient will ascend/descend 2 stairs with modified independence, with least restrictive assistive device, and no railing(s) to improve ability to safely navigate home and community. Outcome: Ongoing Problem: PT - Outcome Measure Goals Goal: DGI - Patient will score 19 or greater on the Dynamic Gait Index (DGI) in order to demonstrate improved walking balance and reduced fall risk. Outcome: Ongoing On admission to [facility], from ED a dual RN initial assessment of skin condition was performed by Mary Grace Villanueva RN and CAROLYN Ackerman Skin Assessment: Skin not within defined limits. - Wound(s) identified: Yes Nicholas Score: 16 LDA Added:Yes Mary Grace Villanueva RN documented in this encounter [facility] 10-31-2024 Plan of care note Images from the original note were not included. I visited with Poonam Veloz this morning as the Stroke Nurse Navigator for the Comprehensive Stroke Center at the [facility]. I provided a BEFAST magnet and together we reviewed the signs and symptoms of a stroke and when to call 911. I indicated that I would like to call post hospitalization to follow up with the patient and inquired whom best to contact (patient) as well as the best number to reach this person. I attempted to schedule Poonam Veloz for a follow-up visit with our neurology department; however, she requests that we send referrals to [facility], which I have. I then left my card assuring the patient that they should feel free to contact me with any questions. Lastly, [employer] BodyGuardian Mini+ placed on patient. Education provided and all questions answered. Instructions added to AVS and updated bedside RN. MAXWELL Stephenson, RN Stroke Nurse Navigator [facility] [place] [address] Office [email or web address] 10-31-2024 Plan of care note Problem: Adult Inpatient Plan of Care Goal: Plan of Care Review Outcome: Adequate for Discharge Goal: Patient-Specific Goal (Individualized) Outcome: Adequate for Discharge Goal: Absence of Hospital-Acquired Illness or Injury Outcome: Adequate for Discharge Goal: Optimal Comfort and Wellbeing Outcome: Adequate for Discharge Goal: Readiness for Transition of Care 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: Thrombolytic Therapy Goal: Absence of Bleeding Outcome: Adequate for Discharge Goal: Unobstructed Breathing 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: Stroke, Ischemic (Includes Transient Ischemic Attack) Goal: Optimal Coping Outcome: Adequate for Discharge Goal: Effective Bowel Elimination Outcome: Adequate for Discharge Goal: Optimal Cerebral Tissue Perfusion Outcome: Adequate for Discharge Goal: Optimal Cognitive Function Outcome: Adequate for Discharge Goal: Improved Communication Skills Outcome: Adequate for Discharge Goal: Optimal Functional Ability Outcome: Adequate for Discharge Goal: Optimal Nutrition Intake Outcome: Adequate for Discharge Goal: Effective Oxygenation and Ventilation Outcome: Adequate for Discharge Goal: Improved Sensorimotor Function Outcome: Adequate for Discharge Goal: Safe and Effective Swallow Outcome: Adequate for Discharge Goal: Effective Urinary Elimination 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: Swallowing Impairment Goal: Optimal Eating/Swallowing without Aspiration 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: OT - ADLs Goal: Lower Body Dressing - Patient will complete lower body dressing tasks with supervision using adaptive equipment/compensatory strategies as needed for improved ability to complete self-care activities. Outcome: Adequate for Discharge Goal: Bathing - Patient will perform full body bathing routine with supervision while seated for improved ability to complete self-care activities 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: OT - Transfers Goal: Transfers Toilet/ Bedside Commode - Patient will transfer to/from toilet/bedside commode with supervision for improved ability to safely complete ADLs. 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: OT - Balance Goal: Balance - Standing - Patient will perform 6-8 minutes of functional task in standing with supervision and good balance to promote safety and improved balance required for self-care activities. 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: OT - Strength/ROM Goal: Strength/ROM ADL Participation - Patient will participate in UE exercise program with independence to prevent deconditioning while in hospital and to max UE ROM/Coordination/strength for ADLs. 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: OT - Cognition Goal: Cognition Home Maintenance - Patient will complete simulated home maintenance task: medication management with independence and 100% accuracy. 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: PT - General Goals Goal: Sit <-> Stand Transfers - Patient will perform sit to/from stand transfers with modified independence and least restrictive device in order to improve functional mobility and safety. Outcome: Adequate for Discharge Goal: Ambulation - Patient will ambulate 500 feet with modified independence and least restrictive device to improve ability to safely navigate home and community. Outcome: Adequate for Discharge Goal: Stairs - Patient will ascend/descend 2 stairs with modified independence, with least restrictive assistive device, and no railing(s) to improve ability to safely navigate home and community. 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: PT - Outcome Measure Goals Goal: DGI - Patient will score 19 or greater on the Dynamic Gait Index (DGI) in order to demonstrate improved walking balance and reduced fall risk. 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 Goal: Ongoing Assessment - Patient will participate in ongoing dynamic assessment of motor speech, expressive/receptive language, and cognitive-linguistic skills across 1 session to better assess deficits and most appropriately guide POULTRY RAISER plan of care 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 - Language Goal: Command Following - Patient will complete 2-step commands with 90% accuracy with moderate cues in order to improve direction following for functional gains in ability to participate more independently in care Outcome: Adequate for Discharge Goal: Word Retrieval Strategies for Conversation - Patient will state and/or demonstrate understanding of trained strategies targeting anomia with no more than moderate cues to use strategies during functional conversation to reduce communication breakdowns Outcome: Adequate for Discharge Goal: Repetition - Patient will read or repeat functional words/phrases related to wants/needs in this setting, (e.g., name, date of , functional requests, etc.) to 95% success, with moderate cues for improved ability to communicate wants/needs Outcome: Adequate for Discharge [facility] 10-31-2024 History of Present illness Narrative Care Management Discharge Note Selected Continued Care - Admitted Since 10/27/2024 Home Medical Care Service Provider Selected Services Address Phone Fax Patient Preferred HOME [facility] [place] Home Health Services, Home Nursing, Home Rehabilitation [address] [place] [address], [address], [facility] [id number] [phone] -- Transport Request Mode of Transfer: S Name of Discharge Transport Company: [employer] [facility]charge [facility] ETA: 10/31/24, 10:00AM Patient medically stable for discharge per physician/medical team. Patient/Rehabilitation Supervisor remain in agreement with the discharge plan. REBECA Fregoso, FURNACE OPERATOR AND TENDER Production Statistical Clerk Available by Secure Chat Images from the original note were not included. NEUROVASCULAR STROKE SERVICE Daily Progress Note IDENTIFYING INFORMATION Poonam Veloz MR# [id number] 10/30/2024 HISTORY OF PRESENT ILLNESS Poonam Veloz is a 84 y.o. 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 A stroke alert was called for STAT consultation. LKW 1400. Shortly after was found confused unable to use phone and with speech issues. When speaking to , pt had difficulty with confusing numbers and reportedly has been doing well with POULTRY RAISER. No residual weakness per . Was doing well prior and going about her day. Then developed difficulty manipulating her phone and then all of a sudden, became out of sorts. Almost fell into walker and was brought to OSH. Had some shaking but was able to walk to ambulance. Also had shaking in both arms and legs After being brought to OSH, started having worse speech issues. After TNK, had some weakness on R side. No obvious health issues prior, no dysuria, viral illnesses, or other new complaints. Initial SBP 132. Telestroke NIHSS was 4 for questions, commands, and aphasia. Delta NIH 2. Outside hospital CT Head did not show acute infarct or hemorrhage. Outside hospital CT Angiography did not show LVO or flow-limiting stenosis. Lytics were given at 1655. Of note, she did come in with worsening in speech and RUE weakness on 07/28/24 and it was secondary to seizures. Had LUE and RLE jerking, garbled speech, disorientation, and tongue bite. cEEG showed left hemispheric slowing but no seizures or clinical events noted. Discharged on Keppra 500 mg BID, has not yet followed up outpatient. Given the possibility of new stroke, TNK was given at 1655. Loaded with Keppra 1.5 gm and Ativan 1.5 gm at 1726 due to possibility of breakthrough seizure. At [facility], SBP 140s. NIH was 7 for questions, language, RUE/RLE drift. CTH was stable. Pt on ASA, no AC. mrS 2 - Slight disability; unable to carry out all previous activities, but able to look after own affairs without assistance.. INTERVAL HISTORY 10/28: reports some continued worsening of her aphasia. Otherwise no acute complaints. Appears frustrated. 10/29: Continues to experience expressive aphasia. Reports a lot of anxiety regarding ongoing condition and team provided some reassurance. Upon further chart review, she was noted to have similar speech findings during her last admission to [facility]. Awaiting brain MRI. 10/30: Speech is subjectively improved, although she worsens when she gets anxious. Her condition likely necessitates IPR. She is eager to return home, however had significant deficits that may preclude this. She seems to agree that her condition may be 2/2 seizure. MRI negative for acute stroke. PHYSICAL EXAM Physical Exam General: Laying comfortably in bed; in no acute distress. CV: RRR. Pulmonary: No increased work of breathing, equal chest rise bilaterally, no audible wheezing. Abdomen: soft, non-tender Ext: No cyanosis, edema, or deformity Skin: No rash Neurological Examination Psych and Mental status: alert; oriented to month but not age. Able to follow simple commands. Speech/language: not fluent; comprehension intact; repetition impaired, object identification intact Cranial nerves: CN II Blinks to threat bilaterally CN III, IV, PERRL. EOMI. CN V unable to assess CN VII face, smile, eyebrow raise/closure symmetric CN VIII hearing grossly intact to voice CN IX & X soft palate elevates symmetrically in the midline, no dysarthria CN XI unable to assess CNXII unable to assess Motor: thin bulk and normal tone. Right Arm: no drift Left Arm: no drift Right Leg: no drift Left Leg: no drift Coordination: FTN intact Sensation: intact in all 4 extremities Laboratory Results Diagnostics/Procedures: Labs-CBC WBC/Hgb/Hct/Plts: 7.92/11.7/35.8/278 (10/27 2116) Labs-Chem 7([facility]) Bun/Creat/Cl/CO2/Glucose: 21/0.81/103/26/100 (10/27 2116) Na/K+/Phos/Mg/Ca: 137/4.1/--/--/-- (10/27 2116) Labs-Coags Ptt/Pt/Inr: 33.7/14.1/1.1 (10/27 2116) Additional Labs Lab Results Component Value Date HGBA1C 5.9 (H) 10/30/2024 Lab Results Component Value Date CHOLESTEROL 183 10/30/2024 TRIG 70 10/30/2024 HDL 51 10/30/2024 LDLCALC 118 (H) 10/30/2024 Assessment and Plan Aphasia Hx of L MCA stroke of unknown etiology S/p TNK Etiology: Cryptogenic. Of note, the initial consultation note from [facility] seems to suggest patient had a nonfluent aphasia. She continues to exhibit this although family did report some improvement in her aphasia initially with subsequent acute worsening day prior to admission. Differential remains either possible breakthrough seizure (which seems somewhat more likely given negative MRI) versus very small acute stroke however MRI negative stroke would localize to inferior frontal area which would not be typical area to expect DWI negative stroke. - 24H HCT stable without any new infarction or bleeding noted - aspirin 81mg daily - Holding home pitavastatin 1mg due to not on formulary, will start low dose rosuvastatin for moderate intensity. 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 - Holding home hydrochlorothiazide 12.5 mg daily and losartan 50 mg daily HLD - Will plan to trial moderate intensity statin since patient could tolerate moderate intensity previously. Mood disorder - Continue sertraline 100 mg daily Code Status: DNR-CCA, ok to intubate DVT prophylaxis: lvx DIET REGULAR VITAL SIGNS Temp: [97.5 F (36.4 C)-99 F (37.2 C)] 97.5 F (36.4 C) Pulse (Heart Rate): [77-92] 79 Resp Rate: [11-23] 16 BP: (117-180)/(59-91) 130/64 O2 Sat (%): [94 %-100 %] 98 % Weight: [58.6 kg (129 lb 3.2 oz)] 58.6 kg (129 lb 3.2 oz) Oxygen Therapy: Oxygen Therapy O2 Sat (%): 98 % O2 Device: room air Intake/Output: Intake/Output Summary (Last 24 hours) at 10/30/2024 1327 Last data filed at 10/30/2024 1006 Gross per 24 hour Intake 542.74 ml Output -- Net 542.74 ml LABS/CULTURES Lab Results Component Value Date WBC 8.90 10/30/2024 HGB 12.1 10/30/2024 HCT 37.4 10/30/2024 PLATELET 231 10/30/2024 MCV 84.0 10/30/2024 Lab Results Component Value Date SODIUM 143 10/30/2024 POTASSIUM 3.6 10/30/2024 CHLORIDE 96 (L) 10/30/2024 CO2 17 (L) 10/30/2024 BUN 14 10/30/2024 CREATSERUM 0.59 10/30/2024 GLUCOSE 81 10/30/2024 Lab Results Component Value Date CHOLESTEROL 183 10/30/2024 CHOLESTEROL 163 07/28/2024 TRIG 70 10/30/2024 TRIG 87 07/28/2024 HDL 51 10/30/2024 HDL 51 07/28/2024 LDLCALC 118 (H) 10/30/2024 LDLCALC 95 07/28/2024 Lab Results Component Value Date HGBA1C 5.9 (H) 10/30/2024 Lab Results Component Value Date ALBUMIN 3.9 10/27/2024 , No results found for: CPK, TROP IMAGING/DIAGNOSTIC STUDIES MRI BRAIN WITHOUT CONTRAST Final Result IMPRESSION: No acute intracranial abnormality. No evidence of recent infarct. Unchanged large remote left MCA territory infarct. HEAD WITHOUT CONTRAST Final Result IMPRESSION: No evidence of acute intracranial hemorrhage, mass effect, or acute large territory infarct. 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 CHEST 1 VIEW PORTABLE Final Result IMPRESSION: Nonspecific right infrahilar opacity. STROKE HEAD-STROKE ALERT ONLY Final Result IMPRESSION: 1. No acute intracranial finding. 2. Remote left MCA territory infarct. Findings were discussed with Mariano Landaverde MD on 10/27/2024 9:14 PM. I personally viewed and interpreted these images and I have reviewed and approved this report. CARDIOGRAM (Results Pending) MEDICATIONS aspirin 81 mg Oral Daily enoxaparin 40 mg Subcutaneous Q24H [Held by provider] hydroCHLOROthiazide 12.5 mg Oral Daily levETIRAcetam 500 mg Oral Q12H [Held by provider] Losartan 50 mg Oral Daily Senna 8.6 mg Oral QAM Or Senna 8.6 mg Per NG tube QAM Sertraline 100 mg Oral Daily Acute Care [facility] Speech/Language/Cognitive Evaluation Best mode of Communication: spoken language (regular speech) Discharge Recommendations: Based on the below outcome measures/assessment score(s) and [facility] clinical judgment, discharge destination recommendation is: Inpatient Rehab Facility Barriers to discharge home: Patient needs assistance with IADLs, Patient needs assistance with medication management Acute [facility] Outcomes Tracking Communicate basic wants and needs?: yes Demo insight/appreciation of deficits?: yes Complete basic problem solving?: unable to determine Current therapy frequency recommendation in acute: Speech/Lang/Cog Therapy Frequency: 3 times a week Clinical Impression: Poonam Veloz presents with 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 Given report that patient was previously taking care of her , suspect significant decline given functional status this date. Patient with relative strengths in the areas of 1-step command following with extremities (difficulty with 2-step commands and oral motor commands suspect potential component of apraxia). Additionally, patient with relative strengths in yes/no responses, and object recognition from a field of five. These deficits result in functional limitations in ability to safely return home to prior level of independence including impaired ability to manage medications, finances, and care for her who patient indicated is terminally ill.Throughout evaluation, patient appears to have increasing frustration with deficits and concerns about wanting to get home to her . Will initiate [facility] treatment per plan of care. Patient Education/Instruction Learners: Patient Education provided: Discharge recommendations, Plan of care Teaching method: Verbal Education/Instruction Learner response: Needs review Learning preferences: Auditory Learning considerations: Cognition Plan for next session: 10/30; initiate treatment for improved communication efficiency, good prognosis given motivation. Subjective information: Awake, alert, agreeable to evaluation. Patient expressed frustration with her current word finding difficulties. Pain: General Pain Documentation (Adult, OB, Peds) Presence of Pain: (P) denies pain/discomfort Presence of Pain Score (Auto-calculated): (P) 0 Comfort/Acceptable General Pain Level/Goal: 0 Precautions: Patient Safety Communication Prior to Visit: Nursing Lines/Tubes/Drains (Rehab Status): Telemetry Patient History Comments: Per chart Poonam Veloz is a 84 y.o. 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 Prior Level of Function: Below obtained from PT/OT evaluations; however, similar to communication that patient had with [facility] team. Home Setting Residence: House (One-level home.) Lives With: spouse Patient receives help from : none Patient reported support for discharge planning: intermittent physical assist, intermittent supervision (Pt reports her spouse has a cancer diagnosis and is actively receiving chemo and not really able to assist with caring for her post-discharge; Pt reported the possibility of a cousin being able to provide intermittent care.) First floor setup: bedroom, walk-in shower, grab bars Number of stairs to enter home: 2 Number of stairs in home: 0 Stair Railings at Home: entry - no rail Mobility Equipment Available: front-wheeled walker, none used ADL Equipment Available: grab bars Home Environment Details: Secondary to pt's language/cognitive impairments, unable to ensure the accuracy of the occupational profile collected via pt this date. Pt reports having no DME at home, however, medical chart reports almost falling into her walker at home as one of the symptoms leading to current hospitalization. 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 Vocation: retired Residence: House (One-level home.) Lives With: spouse IADL History IADLs: independent Primary Language: Gabonese Home Management Skills: independent Medication Management: needs assist Finance Management: needs assist Homemaking Responsibilities: Yes Meal Prep Responsibility: Primary Laundry Responsibility: Primary Cleaning Responsibility: Primary Shopping Responsibility: Primary Active Molder: No Mode of Transportation: Family Occupation: Retired Leisure and Hobbies: house care, walking dog Respiratory Status: Room Air EXPRESSIVE LANGUAGE: Impaired Task: Imitates Gestures Impaired Automatic Speech Impaired Phrase Completion Impaired Confrontation Naming Impaired Answering 'wh' Questions Repetition Functional Verbalize Basic Wants and Needs Functional Functional Participation in Conversation Impaired Expressive Language Characteristics: Non-Fluent RECEPTIVE LANGUAGE: Impaired Task: Identify Functional Objects Intact Follow 1-Step Commands Functional Follow 2+ Step Commands Impaired Answers Basic Y/N Questions Functional Answers Complex Y/N Questions Functional, required repetition of questions Conversational Comprehension Functional READING: Impaired Task: Single Words Aloud Impaired Sentence Comprehension Impaired WRITING: Impaired Task: Writing Single Words Impaired SOCIAL INTERACTION/PRAGMATICS: Functional (within limitations of aphasia) Task: Initiates Conversation Functional Takes Turns in Communication Functional Maintains Eye Contact Functional Affect Functional Responds Appropriately to Questions Functional COGNITION: Impaired (within limitations of aphasia) Task: Arousal/Alertness Delayed responses to stimuli Orientation Level Oriented to person, Oriented to place Safety Judgment Decreased awareness of need for assistance, Decreased awareness of need for safety Awareness of Errors Assistance required to correct errors made Deficits Decreased awareness of deficits Attention Span Appears intact Memory Decreased short term memory Problem Solving Assistance required to identify errors made, Assistance required to generate solutions, Assistance required to implement solutions CRANIAL NERVE EXAMINATION: Cranial Nerve Exam CN V (Trigeminal) strong equal bilateral strength of masseter and temporal muscles CN VII (Facial) strong bilateral movement of upper and lower face CN IX (glossopharyngeal) voice quality strong and clear CN X (Vagus) not tested CN XI (Accessory) raises head off pillow without difficulty CN XII (Hypoglossal) not tested (unable to stick out tongue on command) MOTOR SPEECH TASKS: Impaired Task: Imitate Motor Movements Impaired Imitate Sounds and Words Impaired Speech Intelligibility Functional Fluency Functional Saliva Management Functional VOCAL PARAMETERS: Intact Task: Breath Support Intact Coordination of Respiration and Phonation Coordination of respiration and phonation: Intact Duration of Phonation Intact Pitch Control Intact Loudness Intact Vocal Quality WDL Subjective Voice Evaluation Grade of dysphonia (G): 0 Roughness (R): 0 Breathiness (B): 0 Asthenia (A): 0 Strain (S): 0 [facility] Outcomes: The [place] Aphasia Screening Test (MAST) was developed as a brief, repeatable screening measure for individuals with impaired communication/language skills. The MAST was designed to be used for serial assessments to detect changes in language abilities over time. Patient scored the following on the 9 subtests: Expressive Index Naming Expressive Index: 8/10 Automatic Speech Expressive Index: 6/10 Repetition Expressive Index: 6/10 Writing Expressive Index: 0/10 Verbal Fluency Expressive Index: 5/10 (Based on Cookie Theft Picture) Receptive Index Yes/No Accuracy Receptive Index: 18/20 Object Recognition Receptive Index: 10/10 Following Instructions Receptive Index: 4/10 Reading Instructions Receptive Language Index: 0/10 Expressive Index Subscale: 25/50 Receptive Index Subscale: 32/50 Total Index Score: 57/100 Acute [facility] Goals Plan of Care by CIARA Salinas at 10/30/2024 12:15 PM Version 1 of 1 Problem: [facility] - Cognition Goal: Ongoing Assessment - Patient will participate in ongoing dynamic assessment of motor speech, expressive/receptive language, and cognitive-linguistic skills across 1 session to better assess deficits and most appropriately guide [facility] plan of care Outcome: Ongoing Problem: [facility] - Language Goal: Command Following - Patient will complete 2-step commands with 90% accuracy with moderate cues in order to improve direction following for functional gains in ability to participate more independently in care Outcome: Ongoing Goal: Word Retrieval Strategies for Conversation - Patient will state and/or demonstrate understanding of trained strategies targeting anomia with no more than moderate cues to use strategies during functional conversation to reduce communication breakdowns Outcome: Ongoing Goal: Repetition - Patient will read or repeat functional words/phrases related to wants/needs in this setting, (e.g., name, date of , functional requests, etc.) to 95% success, with moderate cues for improved ability to communicate wants/needs Outcome: Ongoing Speech Language Pathologist: Kayy Almendarez Time In: 1215 Time Out: 1251 Total Visit Time: 36 minutes Total Treatment Time (skilled, billable minutes): 36 minutes Non-billable assistance during session: none Assisted by during session: CIARA Clark PPE used during patient interaction: gloves Patient location/status at end of session: chair Patient alarms at end of session: none altered Needs in reach. [facility] Evaluation and Treatment Time Speech Eval - Sound Production W/Lang Comp and Exp [id number]: 36 Upon discontinuation of Acute Care Speech Therapy Services or patient discharge from the hospital this note represents the current Speech Therapy Discharge Summary Associated attestation - Kathy Lunsford SLP - 10/30/2024 5:01 PM EST I, CIARA Salinas, provided direct guidance in the room during this patient care session. I attest that all documentation reflects accurate skilled clinical decisions and judgements. Kathy Lunsford MS, CCC-[facility] #[id number] Pager# [phone] Can also be reached via [email or web address] secure chat Mon-Fri between [phone] Acute Care Speech-Language Pathology Note Received consult for swallow evaluation. However, pt passed Chapis Swallow Screening by nursing. Swallow eval by [facility] will not be completed at this time unless this service notified of change in status or re-consult for swallow eval placed. [facility] to proceed with speech/language/cognitive evaluation per order. Thank you. 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 Spouse stated spouse had a stroke back in January that caused her to have issues with speaking and numbers. He stated his had a Seizure @1-2 months ago and continued to have issues with her speech. Patient is current with Home Health [facility] and Nursing. Through [facility]. Spouse would like to resume services at discharge. CM uploaded referral to [facility] and requested verification of services. Patient is pending final workup and recommendations. Spouse stated his will need ambulance transportation at time of discharge. CM will continue to follow and assist patient and spouse through discharge planning process. Initial Discharge Planning Expected Discharge Disposition: Home with Home Health Transportation Available for Discharge: Ambulance Anticipated DME: unknown at this time Anticipated Services at Discharge: Physical Therapy, Occupational Therapy, Outpatient follow up, Intermediate, Speech Therapy Patient Assessment Completed: Initial Legal Next of Kin Does the patient have a Guardian?: No Spouse: Yes Name and Contact information: Xavier Veloz [phone] Referral to Social Work to Identify Legal Next of Kin?: No Reviewed and Updated in Demographics? : Yes Advanced Care Planning Medication Management Does the patient have prescription insurance coverage? : Yes Is the patient on Anticoagulation? : Yes Provider or Clinic that manages Anticoagulation?: [facility] Deanna Fung, Room T[address] [facility] [id number] Living Environment and Support System Is the patient from a facility or nursing home?: No Living Environment: House Patient Caregiving Responsibilities: Self Patient-identified caregiver/support network: Family Who does the patient identify as a teachable caregiver(s)?: Spouse or Partner Services Does the patient use a home health or hospice agency?: Yes - home health Agency Name and Contact : [facility] Current Home Services: Intermediate, [facility] Would you like to add additional home health or hospice agencies?: No Current with dialysis?: No Does the patient use any community programs or services?: No Does patient use DME? : none Does the patient use oxygen?: No Does patient use medical supplies? : none Anticipated Changes Related to Illness/Injury? : Yes Inability to care for self?: No Inability to care for dependents?: N/A Inability to return to school/work?: N/A Initial ADLs Prior to Arrival What is the patient's baseline physical functioning prior to this acute illness?: independent What is the patient's baseline cognitive functioning prior to this acute illness?: independent Is the patient's baseline functioning changed by this acute illness? : Unable to assess Concerns with patient being able to care for themselves at home? : Unable to assess Agency Trainer Does the patient or human resources representative express financial concerns? : No REBECA Fregoso, VARUN Production Statistical Clerk Available by Secure Chat Acute Physical Therapy Evaluation Prior Gross Functional Mobility: independent (Pt reports no use of DME, but medical chart infers pt may have been utilizing a walker.) Current AM-PAC score(s): CURRENT AM-PAC Mobility Raw Score: 17 Based on the above AM-PAC score(s) and PT clinical judgment, patient is a good candidate for discharge to Inpatient Rehab Facility Supporting Factors (would benefit from skilled therapy services): Impaired balance, Patient status is anticipated to be appropriate to tolerate inpatient rehab therapy requirements at time of discharge from acute care, Impaired cognitive status, Fall risk Mobility equipment available at home: front-wheeled walker, none used ADL equipment available at home: grab bars Equipment needed for discharge: to be determined Current therapy frequency recommendation in acute: PT Therapy Frequency: 5 times a week Activity Recommendations for outside of rehab session: x1 hallway ambulation with gait belt Precautions and Weightbearing Status: Existing Precautions/Restrictions: fall Telemetry Patient Safety Communication Prior to Visit: Nursing Subjective: Pt is supine and agreeable to treatment Pain: General Pain Documentation (Adult, OB, Peds) Presence of Pain: denies pain/discomfort Presence of Pain Score (Auto-calculated): 0 Home Setting Residence: House (One-level home.) Lives With: spouse Patient receives help from : none Patient reported support for discharge planning: intermittent physical assist, intermittent supervision (Pt reports her spouse has a cancer diagnosis and is actively receiving chemo and not really able to assist with caring for her post-discharge; Pt reported the possibility of a cousin being able to provide intermittent care.) First floor setup: bedroom, walk-in shower, grab bars Number of stairs to enter home: 2 Number of stairs in home: 0 Stair Railings at Home: entry - no rail Mobility Equipment Available: front-wheeled walker, none used ADL Equipment Available: grab bars Home Environment Details: Secondary to pt's language/cognitive impairments, unable to ensure the accuracy of the occupational profile collected via pt this date. Pt reports having no DME at home, however, medical chart reports almost falling into her walker at home as one of the symptoms leading to current hospitalization. 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 Vocation: retired Objective/Observation: Vitals/Vitals Responses to Treatment: No adverse events O2 Device: room air Cognition Overall Cognitive Status: Impaired Arousal/Alertness: Delayed responses to stimuli Orientation Level: Oriented to place, Oriented to person Vision Screen Currently wearing corrective lenses: No Visual Impairments Observed?: No Speech Speech: word-finding difficulties Hearing Hearing: no gross deficits noted Extremity Assessments: RLE Assessment RLE Assessment: Within Functional Limits LLE Assessment LLE Assessment: Within Functional Limits Sensation Overall Sensation: Intact Mobility Assessment: Rolling/Turning Mobility Lake Level: Rolling/Turning: stand-by assist Bed Features/Set-up: Rolling/Turning: Head of bed elevated Skilled Rationale: Positioning, Sequencing, Hand placement, Maintain precautions Skilled Intervention/Details: Rolling/Turning: Did not require use of bed rails Scooting Bridging Mobility Lake Level: Scooting/Bridging: not tested Supine to Sit Mobility Lake Level: Supine->Sit: stand-by assist Bed Features/Set-up: Supine->Sit: Head of bed elevated Skilled Rationale: Positioning, Sequencing, Hand placement, Technique of activity Skilled Intervention/Details: Supine->Sit: Standby assist for safety. Able to perform transfer without use of hosptial bed features. Cues to scoot to the edge of the bed so that feet are on the floor to assist with balance. Sit to Supine Mobility Lake Level: Sit->Supine: not tested Balance: Sitting Balance Static Sitting-Level of Assistance: Standby Dynamic Sitting-Level of Assistance: Standby Skilled Rationale: Positioning, Sequencing, Hand placement, Technique of activity Standing Balance Static Standing-Level of Assistance: Contact guard Dynamic Standing-Level of Assistance: Minimum assistance Standing-Balance Support: Gait belt, Hand-held assist Skilled Rationale: Positioning, Sequencing, Full extension to upright positioning/posture, Finding/maintaining midline positioning, Upright gaze/neck extension Standing Balance Skilled Intervention/Details: Stands with flexed posture and narrow MELVA. Transfer Assessment: Sit to Stand Transfer Lake Level: Sit->Stand: contact guard assist Assistive Device: Sit->Stand: gait belt Skilled Rationale: Positioning, Sequencing, Hand placement, Technique of activity Skilled Intervention/Details: Sit->Stand: x1 from EOB. Cues to maintain upright posture. Stand to Sit Transfer Lake Level: Stand->Sit: minimum assist (75% patient effort) Assistive Device: Stand->Sit: gait belt Skilled Rationale: Positioning, Sequencing, Hand placement, Technique of activity, Initiation and execution of task, Cues for increased safety Skilled Intervention/Details: Stand->Sit: Initially began to sit on arm rest and required cues to line herself up with the chair. Cues for hand placement for eccentric control. Cues for proximity to chair before attempting transfer. Bed-Chair Transfer Lake Level: Bed<->Chair: not tested Gait/Functional Mobility: Gait Assessment Lake Level: Gait: minimum assist (75% patient effort) Assistive Device: Gait: gait belt Ambulation Distance (Feet): 125 Gait Deviations Identified: decreased estevan, decreased gait speed, decreased heel strike, decreased step length, decreased stride length, narrow base of support, path deviation Gait Skilled Rationale: verbal, tactile, increase step length, increase step width, increase trunk rotation, improve foot placement, increase foot clearance Skilled Intervention/Details - Gait: Ambulates with decreased step length and gait speed. Path deviation to the R while ambulating. Narrow MELVA and flexed posture. No overt LOB but required physical assistance to maintain balance due to postural sway. Stairs: Stairs Assessment Lake Level: Stair Negotiation: not tested CURRENT [facility] Basic Mobility Inpatient Short Form Turning over in bed: 3 - A Little Assistance Moving from lying on back to sittin - A Little Assistance Moving to and from bed to chair: 3 - A Little Assistance Sitting/standing from chair: 3 - A Little Assistance Walk in hospital room: 3 - A Little Assistance Climbing 3-5 steps with a railin - A Lot of Assistance CURRENT [facility] Mobility Raw Score: 17 CURRENT [facility] Mobility Functional Limitation: 50.57% Impaired in Basic Mobility Interventions: Assessment & Plan: Patient was admitted for history of L MCA ischemic stroke 02/23, seizures on 07/26, HTN, and HLD who presented on 10/27/2024 as a Level A Ischemic Stroke Alert s/p lytics (given at 1655) for word finding difficulties. and seen for therapy evaluation related to mobility concerns, discharge recommendation. Exam findings include impairments in: Balance, Posture, Transfers, Gait/Locomotion, Cognition/Arousal/Attention. These impairments contribute to functional limitations including Decreased ambulation distance/endurance, Difficulty stair climbing/descent, Increased fall risk, Difficulty ambulating on uneven/dynamic surfaces, Difficulty with bed mobility, Difficulty with transfers, Difficulty getting off the floor, Decreased functional mobility. Pt presents with poor safety awareness and impaired gait mechanics. Demonstrated decreased step length and gait speed. Ambulates with a narrow MELVA and flexed posture. Poor carryover of cues throughout the session. Requires skilled theraputic intervention due to poor gait mechaincs, imapired balance, and decreased safety awareness, Patient continues to require skilled PT intervention throughout the duration of acute stay in order to improve functional mobility and increase quality of life Current clinical presentation is Evolving - changing/inconsistent clinical characteristics (Moderate). Patient history factors impacting Plan Of Care include . Patient will benefit from skilled physical therapy to address these impairments, functional limitations, and participation restrictions and has good rehab potential to achieve therapy goals. Planned Therapy Interventions: balance training, bed mobility training, gait training, functional activity tolerance, neuromuscular re-education, postural re-education, transfer training Patient Instruction/Education this session: Learners: Patient Education provided: Role of this discipline Teaching method: Verbal Education/Instruction Learner response: Needs review Learning preferences: Auditory Learning considerations: Cognition, Speech expression Stroke education: Role of rehabilitation discipline Plan for next session: progress gait Acute PT Goals Plan of Care by Xavier Cary PT at 10/30/2024 11:00 AM Version 1 of 1 Problem: PT - General Goals Goal: Sit <-> Stand Transfers - Patient will perform sit to/from stand transfers with modified independence and least restrictive device in order to improve functional mobility and safety. Outcome: Ongoing Goal: Ambulation - Patient will ambulate 500 feet with modified independence and least restrictive device to improve ability to safely navigate home and community. Outcome: Ongoing Goal: Stairs - Patient will ascend/descend 2 stairs with modified independence, with least restrictive assistive device, and no railing(s) to improve ability to safely navigate home and community. Outcome: Ongoing Problem: PT - Outcome Measure Goals Goal: DGI - Patient will score 19 or greater on the Dynamic Gait Index (DGI) in order to demonstrate improved walking balance and reduced fall risk. Outcome: Ongoing PT treatment consisted of the following to progress towards the above goal(s): PT Evaluation and Treatment Time PT Evaluation (Moderate) Time Entry: 25 Evaluating Therapist: Jarvis Whyte Additional Details: PT Co-Eval/Treatment Information Co-evaluation/co-treatment performed?: Yes, combination of simultaneous billable and individual billable skilled care was necessary due to medical complexity and functional deficits Other discipline: OT Rationale for need to co-eval/treat: cognition Evaluation Complexity Components History: High (3 personal factors and/or comorbidities) Body Systems Review: Moderate (Addressing a total of 3 or more elements) Clinical Presentation: Evolving - changing/inconsistent clinical characteristics (Moderate) Clinical Decision Making Complexity: Moderate Time In: 1100 Time Out: 1125 Total Visit Time: 25 minutes Total Treatment Time (skilled, billable minutes): 25 minutes PPE used during patient interaction: gloves Patient location at end of session: chair Alarms on at end of session: chair alarm Needs in reach. Upon discontinuation of Acute Care Physical Therapy Services or patient discharge from the hospital this note represents the current Physical Therapy Discharge Summary. Associated attestation - Xavier Cary, PT - 10/30/2024 1:36 PM EST I, Xavier Cary PT, provided direct guidance in the room during this patient care session. I attest that all documentation reflects accurate skilled clinical decisions and judgements. Acute Occupational Therapy Evaluation Prior Gross Functional Mobility: independent (Pt reports no use of DME, but medical chart infers pt may have been utilizing a walker.) Current AM-PAC score(s): CURRENT AM-PAC Activity Raw Score: 19 Based on the above AM-PAC score(s) and OT clinical judgment, discharge destination recommendation is: Inpatient Rehab Facility Supporting Factors (would benefit from skilled therapy services): Patient status is anticipated to be appropriate to tolerate inpatient rehab therapy requirements at time of discharge from acute care, Impaired functional status, Decreased strength, Impaired balance, Decreased endurance, Impaired self-care abilities, Impaired cognitive status, Assistance needed with functional mobility, Fall risk Mobility equipment available at home: front-wheeled walker, none used ADL equipment available at home: grab bars Equipment recommendations for discharge: shower chair Equipment issued: Current therapy frequency recommendation(s) in acute: 5 times a week Activity Recommendations for outside of rehab session: 1 person assist with gait belt for hallway mobility. Precautions and Weightbearing Status: OT Existing Precautions/Restrictions: fall, cardiac, seizure (Exit alarm.) Telemetry Patient Safety Communication Prior to Visit: Nursing Subjective: Pt reported, I need to get home to him in regards to her spouse. Pain: General Pain Documentation (Adult, OB, Peds) Presence of Pain: denies pain/discomfort Presence of Pain Score (Auto-calculated): 0 Home Setting Residence: House (One-level home.) Lives With: spouse Patient receives help from : none Patient reported support for discharge planning: intermittent physical assist, intermittent supervision (Pt reports her spouse has a cancer diagnosis and is actively receiving chemo and not really able to assist with caring for her post-discharge; Pt reported the possibility of a cousin being able to provide intermittent care.) First floor setup: bedroom, walk-in shower, grab bars Number of stairs to enter home: 2 Number of stairs in home: 0 Stair Railings at Home: entry - no rail Mobility Equipment Available: front-wheeled walker, none used ADL Equipment Available: grab bars Home Environment Details: Secondary to pt's language/cognitive impairments, unable to ensure the accuracy of the occupational profile collected via pt this date. Pt reports having no DME at home, however, medical chart reports almost falling into her walker at home as one of the symptoms leading to current hospitalization. 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 Vocation: retired IADL History IADLs: independent Objective/Observation: Vitals/Vitals Responses to Treatment: No adverse reactions noted. 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.) Hearing Hearing: hard of hearing (Mild.) Cognition Overall Cognitive Status: Impaired Arousal/Alertness: Delayed responses to stimuli Orientation Level: Oriented to person, Oriented to place (When provided multiple choice options able to orient to person/place, but not time accurately.) Following Commands: Follows one step commands with increased time, Follows one step commands with repetition Safety Judgment: Decreased awareness of need for assistance, Decreased awareness of need for safety Awareness of Errors: Decreased awareness of errors Deficits: Decreased awareness of deficits Attention Span: Difficulty dividing attention Memory: Decreased short term memory Problem Solving: Assistance required to identify errors made, Assistance required to generate solutions, Assistance required to implement solutions Cognition Comments: Delayed processing rate/motor planning; Moderate confusion; Overall, decreased insight into deficits/safety awareness and anticipate related to language impairments. ADLs: ADL Anticipated Performance (ADLs not directly observed this session): Eating, Grooming, Bathing, UE Dressing, LE Dressing, Toileting Eating Assistance: Independent Eating Location: chair Grooming Assistance: Minimal Grooming Location: seated in chair Grooming Intervention/Details: When provided a toothbrush and cued to demonstrate action of item, pt began explaining applying toothpaste and then unable to further sequence past that step despite increased therapist cueing. Bathing Assistance: Minimal Bathing Location: seated on shower chair UE Dressing Assistance: Minimal UE Dressing Location: seated in chair LE Dressing Assistance: Minimal LE Dressing Location: seated in chair, standing Toilet Assistance: Minimal Toileting Location: toilet Extremity Assessments: RUE Assessment RUE Assessment: Within Functional Limits Right UE Assessment Details: About 4/5 grossly; Strong grasp strength. LUE Assessment LUE Assessment: Within Functional Limits Left UE Assessment Details: About 4-/5-4/5 grossly; Moderate grasp strength. Balance: Sitting Balance Static Sitting-Level of Assistance: Standby Dynamic Sitting-Level of Assistance: Contact guard Sitting Balance Skilled Intervention/Details: Seated EOB for about 8 minutes with no difficulty, mostly requiring cues for safety. Standing Balance Static Standing-Level of Assistance: Contact guard Dynamic Standing-Level of Assistance: Minimum assistance Standing Balance Skilled Intervention/Details: Standing for about 5 minutes while completing functional transfers/mobility, mostly requiring cues for safety and with generalized mild unsteadiness. Neuro: Sensation Overall Sensation: Intact Sensation Comments: Pt appears to sense light touch equally between bilateral UEs. Fine Motor Coordination Left Hand, Finger To Nose: severe impairment Right Hand, Finger To Nose: severe impairment Left Hand Thumb/Finger Opposition Skills: moderate impairment Right Hand Thumb/Finger Opposition Skills: moderate impairment Left Hand, Diadochokinesis Skills: moderate impairment Right Hand, Diadochokinesis Skills: moderate impairment Fine Motor Coordination Tests: Overall, generalized difficulty sequencing/problem solving fine motor coordination/precision movements bilaterally. Skin and Edema: Skin Integrity Skin Integrity Description: WFL (Visible areas.) Edema Edema: none noted Mobility Assessment: Supine to Sit Mobility Lake Level: Supine->Sit: stand-by assist Bed Features/Set-up: Supine->Sit: Head of bed elevated, Use of bed rail Skilled Rationale: Cues for increased safety, Technique of activity, Verbal cues Skilled Intervention/Details: Supine->Sit: Cues for safety. Transfer Assessment: Sit to Stand Transfer Lake Level: Sit->Stand: contact guard assist (x 1 trial from EOB.) Assistive Device: Sit->Stand: gait belt Skilled Rationale: Cues for increased safety, Technique of activity, Tactile cues, Verbal cues, Hand placement, Sequencing, Positioning Skilled Intervention/Details: Sit->Stand: Cues for safety/hand placement. Stand to Sit Transfer Lake Level: Stand->Sit: contact guard assist Assistive Device: Stand->Sit: gait belt Skilled Rationale: Cues for increased safety, Technique of activity, Tactile cues, Verbal cues, Hand placement, Sequencing, Positioning Skilled Intervention/Details: Stand->Sit: Pt almost sitting on right arm rest when cued to sit in bedside chair, requiring cues to side-step to the left in order to position self safely. Functional Mobility: Functional Mobility Lake Level: Functional Mobility/Gait: minimum assist (75% patient effort) Assistive Device: Functional Mobility/Gait: gait belt, hand held assist (Right hand-held assist; Non-skid socks.) Functional Mobility Distance: Distance needed for common household mobility Skilled Intervention/Details - Functional Mobility/Gait: No SOB experienced; Mild unsteadiness, requiring minimal assistance for overall stability (especially when turning corners), but no overt LOB experienced. Pt also requiring increased cueing for environmental navigation/wayfinding. Outcome Score(s): CURRENT [facility] Daily Activity Inpatient Short Form Putting on/Taking Off Lower Body Clothin - A Little Assistance Bathin - A Little Assistance Toiletin - A Little Assistance Putting on/Taking Off Upper Body Clothin - A Little Assistance Groomin - A Little Assistance Eatin - No Assistance CURRENT [facility] Activity Raw Score: 19 CURRENT [facility] Activity Functional Limitation/Modifier: 42.80% Currently Impaired in Daily Activity - CK Assessment & Plan: Patient was admitted for word finding difficulty, confusion, and right sded weakness s/p TNK and seen for therapy evaluation related to impairments in endurance/activity tolerance, dynamic standing balance, functional mobility, left UE strength, UE coordination/precision, speech, and cognition limiting pt's safe/independent ADL/IADL performance this date. Exam findings include impairments in: attention, balance, cognitive impairments, coordination, endurance, motor function, strength, transfers. These impairments contribute to occupational performance limitations including bathing, dressing, functional mobility, grooming, toileting, ADL transfers, community integration, leisure integration, home management tasks, shopping/errands, driving/transportation. 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 Psychosocial Factors Positive indicators for performance: Adequate support system, Positive interpersonal relationships, Active participation in community/group program, Positive coping mechanisms Possible barriers for performance: None Patient will benefit from skilled occupational therapy to address these impairments, occupational performance limitations, and participation restrictions. Patient's rehab potential is: good. Planned Therapy Interventions (OT Eval): ADL retraining, IADL retraining, balance training, bed mobility training, cognitive training, fine motor coordination training, functional activity tolerance, motor coordination training, neuromuscular re-education, strengthening, transfer training Patient Instruction/Education this session: Learners: Patient Education provided: Balance training, Bed mobility, Discharge recommendations, Plan of care, Positioning, Role of this discipline, Safety, Activity outside of therapy, Fall precautions, Functional transfers, Gait training safety, Neuromuscular re-education Teaching method: Verbal Education/Instruction Learner response: Needs review Learning preferences: Auditory Learning considerations: Cognition Stroke education: Role of rehabilitation discipline, Recovery process Plan for next session: Therapist to address further dynamic standing balance/functional mobility, cognitive functioning, and ADL engagement. Acute OT Goals Plan of Care by Peyton Brown OT at 10/30/2024 11:01 AM Version 1 of 1 Problem: OT - ADLs Goal: Lower Body Dressing - Patient will complete lower body dressing tasks with supervision using adaptive equipment/compensatory strategies as needed for improved ability to complete self-care activities. Outcome: Ongoing Goal: Bathing - Patient will perform full body bathing routine with supervision while seated for improved ability to complete self-care activities Outcome: Ongoing Problem: OT - Transfers Goal: Transfers Toilet/ Bedside Commode - Patient will transfer to/from toilet/bedside commode with supervision for improved ability to safely complete ADLs. Outcome: Ongoing Problem: OT - Balance Goal: Balance - Standing - Patient will perform 6-8 minutes of functional task in standing with supervision and good balance to promote safety and improved balance required for self-care activities. Outcome: Ongoing Problem: OT - Strength/ROM Goal: Strength/ROM ADL Participation - Patient will participate in UE exercise program with independence to prevent deconditioning while in hospital and to max UE ROM/Coordination/strength for ADLs. Outcome: Ongoing Problem: OT - Cognition Goal: Cognition Home Maintenance - Patient will complete simulated home maintenance task: medication management with independence and 100% accuracy. Outcome: Ongoing OT treatment consisted of the following to work and progress towards the above goal(s): OT Evaluation and Treatment Time OT Evaluation (Moderate) Time Entry: 27 Evaluating Therapist: Peyton Brown OT Additional Details: OT Co-Eval/Treatment Information Co-evaluation/co-treatment performed?: Yes, simultaneous billable skilled care was necessary due to medical complexity and functional deficits Other discipline: PT Rationale for need to co-eval/treat: cognition, coordination, postural control OT Evaluation Complexity Occupational Profile and Client History: Moderate - expanded history Assessment of Occupational Performance: Moderate (3-5 performance deficits) Clinical Decision/Performance Deficits: Moderate (detailed assessments w/several treatment options) Time In: 1100 Time Out: 1127 Total Visit Time: 27 minutes Total Treatment Time (skilled, billable minutes): 27 minutes PPE used during patient interaction: gloves Patient location at end of session: chair Alarms on at end of session: RN aware, chair alarm Needs in reach. Upon discontinuation of Acute Care Occupational Therapy Services or patient discharge from the hospital this note represents the current Occupational Therapy Discharge Summary. Department of Pharmacy Emergency Department Stroke Alert Response Note Patient Name: Poonam Veloz Room/Bed: E035/E035 A Pharmacist responded to the stroke alert. Confirmed via [employer] the patient was started on the following thrombolytic therapy prior to arrival: Tenecteplase Bolus: 14.5 mg given at 16:55 This IHIS order set [facility] IP ED: Confirmed Stroke/ICH - Secondary was placed by Dr. Mei for ongoing care. Verified orders for anti-hypertensive therapy with correct blood pressure goals (SBP <180 mmHg / DBP <105 mmHg) and post-thrombolytic bleeding precautions have been placed. Please feel free to contact me with any further questions. Name: José Miguel Garcia Jr., [facility] Phone: [phone] Date/Time: 10/27/2024 9:47 PM documented in this encounter [facility] 10-30-2024 Plan of care note Problem: POULTRY RAISER - Cognition Goal: Ongoing Assessment - Patient will participate in ongoing dynamic assessment of motor speech, expressive/receptive language, and cognitive-linguistic skills across 1 session to better assess deficits and most appropriately guide POULTRY RAISER plan of care Outcome: Ongoing Problem: POULTRY RAISER - Language Goal: Command Following - Patient will complete 2-step commands with 90% accuracy with moderate cues in order to improve direction following for functional gains in ability to participate more independently in care Outcome: Ongoing Goal: Word Retrieval Strategies for Conversation - Patient will state and/or demonstrate understanding of trained strategies targeting anomia with no more than moderate cues to use strategies during functional conversation to reduce communication breakdowns Outcome: Ongoing Goal: Repetition - Patient will read or repeat functional words/phrases related to wants/needs in this setting, (e.g., name, date of , functional requests, etc.) to 95% success, with moderate cues for improved ability to communicate wants/needs Outcome: Ongoing [facility] 10-30-2024 Plan of care note Problem: OT - ADLs Goal: Lower Body Dressing - Patient will complete lower body dressing tasks with supervision using adaptive equipment/compensatory strategies as needed for improved ability to complete self-care activities. Outcome: Ongoing Goal: Bathing - Patient will perform full body bathing routine with supervision while seated for improved ability to complete self-care activities Outcome: Ongoing Problem: OT - Transfers Goal: Transfers Toilet/ Bedside Commode - Patient will transfer to/from toilet/bedside commode with supervision for improved ability to safely complete ADLs. Outcome: Ongoing Problem: OT - Balance Goal: Balance - Standing - Patient will perform 6-8 minutes of functional task in standing with supervision and good balance to promote safety and improved balance required for self-care activities. Outcome: Ongoing Problem: OT - Strength/ROM Goal: Strength/ROM ADL Participation - Patient will participate in UE exercise program with independence to prevent deconditioning while in hospital and to max UE ROM/Coordination/strength for ADLs. Outcome: Ongoing Problem: OT - Cognition Goal: Cognition Home Maintenance - Patient will complete simulated home maintenance task: medication management with independence and 100% accuracy. Outcome: Ongoing [facility] 10-30-2024 Plan of care note Problem: PT - General Goals Goal: Sit <-> Stand Transfers - Patient will perform sit to/from stand transfers with modified independence and least restrictive device in order to improve functional mobility and safety. Outcome: Ongoing Goal: Ambulation - Patient will ambulate 500 feet with modified independence and least restrictive device to improve ability to safely navigate home and community. Outcome: Ongoing Goal: Stairs - Patient will ascend/descend 2 stairs with modified independence, with least restrictive assistive device, and no railing(s) to improve ability to safely navigate home and community. Outcome: Ongoing Problem: PT - Outcome Measure Goals Goal: DGI - Patient will score 19 or greater on the Dynamic Gait Index (DGI) in order to demonstrate improved walking balance and reduced fall risk. Outcome: Ongoing [facility] 10-30-2024 Hospital Discharge instructions Rosales Martinez MD - 10/30/2024 10:54 AM EST You did not have a new stroke, we suspect you may have had a seizure that preciptated rohini worsening of your symptoms. Continue to work with speech therapy and improve your speech. Please take these discharge instructions to your primary care doctor follow appointment to show them,keep them for your reference and refer to them often for follow up appointments. It is best to write your appointments on a personal calendar so you do not miss them. Call if you need to change any appointments please. Keep an up-to-date medication list with you at all times. Stroke Education: visit [email or web address] What are the most common symptoms of stroke? The following are the most common symptoms of stroke. However, each individual may experience symptoms differently. If any of these symptoms are present, call 911 (or your local ambulance service) immediately. Treatment is most effective when started immediately. Symptoms may be sudden and include: -Weakness or numbness of the face, arm, or leg, especially on one side of the body -Confusion or difficulty speaking or understanding -Problems with vision such as dimness or loss of vision in one or both eyes -Dizziness or problems with balance or coordination -Problems with movement or walking -Severe headaches with no other known cause, especially if sudden onset All of the above warning signs may not occur with each stroke. Do not ignore any of the warning signs, even if they go away - take action immediately. The symptoms of stroke may resemble other medical conditions or problems. Always consult your physician for a diagnosis. We have provided both written and verbal education to the patient and family regarding ischemic and hemorrhagic strokes. We have discussed the warning signs/symptoms as well as causes of stroke. We have discussed the importance of activating 911/EMS in the event of these symptoms. We have reviewed the patient's personal risk factors as well as education on reducing these risk factors. [facility] Personalized Stroke Treatment Plan My Stroke Type: [x] Ischemic Stroke (Blockage of blood flow to the brain) [] Hemorrhagic Stroke (Bleeding in the brain) [] TIA- Transient Ischemic Attack (mini-stroke) My Risk Factors Include: [x] High Blood Pressure [] Diabetes [x] High Cholesterol [] Heart Disease [] Atrial Fibrillation (Irregular Heart Rate) [] Smoking/Vaping/E-Cigarettes [] Obesity [] Clotting Disorder [] Alcohol Abuse [] Drug Abuse [] Prior History [] Family History [] Obstructive Sleep Apnea My Follow-Up Treatment Goals: [x] Blood Pressure < 140/90 [] Stop Smoking, Vaping, and/or using E-Cigarettes Immediately [x] LDL < 70 [x] HgA1C levels < 7% [] Decrease BMI to < 25 [x] Take all ordered medications [] Avoid non-prescription or [id number] medication not cleared by your physician [x] Limit Alcohol use to no more than 1 drink per day for females and 2 drinks per day for males [] Do not drive until cleared [x] Follow up with PCP (Primary Care Provider) within a week of discharge to home [x] Follow-up with Neurovascular (Stroke Doctor) [x] Follow-up with Occupational,physical and speech therapy if ordered [x] Watch out for depression and seek treatment if needed Patient Stroke Resources CONTACTS FOR NEUROVASCULAR SERVICE: - Please first consider reaching out to your PCP (Primary Care Provider) for ongoing care needs and guidance. - You may call the neurovascular doctors office at [phone], if you have questions Mon-Fri between 8:30 am and 4:30 pm. - For off hours or the weekend you may call the office or the hospital chemicals fermentation operator at and ask for the stroke resident purification supervisor to be paged. - If you have any other questions or needs, please call Felicitas ARREOLA, RN, Stroke Nurse Navigator at [phone] Mon-Fri between 7:00am and 3:00pm. - Additional assistance may be found by reaching out to our Case Management Office at [phone]. *In the event of an Emergency: If you have a physical or psychiatric emergency call 911 or go to your local emergency department. You should also call your outpatient provider's emergency number. Other reference numbers: [facility] Intake Office at [phone]; [facility] at [phone]; or Suicide Prevention Hotline at 183-261-3849. *Helpful phone numbers: Free Crisis Hotline: 5-131-369-TALK ( ) Suicide Hotline: 238.598.3714 Seniors Suicide Hotline: 612.358.8748 [facility] Youth: [phone] Mental Health of [place]: [phone] (free counseling) [facility] Access Hotline: 392-889-ADDU (037-784-3481) 24-hour crisis text hotline: Text the word 4hope to 342-212 for crisis support. Texting this number is free if you have Verizon, T-Mobile, AT&T or Sprint. [facility] Financial Assistance: If you want to learn more about these programs, please call .There are three programs to help you with the cost of your medical care: Medicaid, Hospital Care Assurance Program (HCAP) & alexia If you are without Insurance and believe you may qualify for Medicaid/public assistance: The [facility] Department of Job and Family Services can now process pepe (TANF), food (SNAP) and Medicaid Applications over the phone. Please call 4-926-548-MAINE ([phone]) and apply over the phone or apply online at www.benefits.[place].gov. Tuesday-Tuesday 8am-12pm noon. Medication Assistance Programs [employer] members can buy 100+ common prescriptions for FREE, $3 or $6. Annual membership is $36 for individuals and $72 for families (up to 6 people, including pets). Sign up online or enroll at your nearest pharmacy! [employer] web site can provide a significant number of coupons for medications at a much lower august. [place] Department of Aging The Department of Aging administers programs and services to meet the needs of older [place]. Services and resources offered per [facility] may include transportation, housekeeping, meals and nutrition, personal care, case management, safety monitoring, home medical equipment, legal services, associate financial analyst, health and wellness, education, caregiver support, respite care, etc. Call to be connected to the [facility] agency on aging serving your community or visit Vessel.[place].gov/find-services. Request a consultation with a community resource expert at ltssi.age.[place].gov/ [facility] Stroke Support The [facility] Stroke Support Group is for stroke survivors, friends, and family members. Meets on the Tuesday of each month from 6:30pm-7:30pm at [facility] ([address]; [place] [address]). Contact Simona Trevino, at [phone] or [email or web address]. If you are outside of the [facility], contact The [place] Stroke Association at www.stroke.org or 0-895-4-STROKE or for support groups in your area. You may also refer to the Your Care after a Stroke education booklet at go.[facility].edu/oazv9044 for additional resources. [facility] Resources Therapy Options in Your [facility]) PT/OT/ST/Certified Hand Therapy [address] [address] [facility] PT/Hand/Vestibular Therapy [address] [place] [address] [facility] PT/OT [address] [facility] [phone] [facility] PT Only [address], [place] [phone] [facility] Only [address], [place] [phone] Medical Equipment Suppliers [employer] [address] [place] [address] [facility] [address] [address] [employer] Visit [email or web address]-[email or web address] -V Wave/ or call [phone] DME for [facility] Population [address] [place] [address] Xavier Herrmannler: [phone] Local Support Direction [place] [facility] on Aging [address] [place] [address] [facility] Liaison: Meera Mendez LPN [phone] [facility] Transitional Care Program, Meals, etc [phone] Osteopathy Doctor [phone] [facility] Van Transportation [phone] [facility] Rehab Stroke Support Group Virtual Meeting [phone] [email or web address] [facility] Strokes Support [facility] [address] [phone] Felicitas Baez RN - 10/31/2024 9:24 AM EST Images from the original note were not included. You have been placed on a mobile cardiac telemetry device to monitor your heart rhythm for the next thirty days. Detailed and illustrated instructions may be found within the included box and instructional videos are available on the Jackpocket smartphone (tap Help & Settings ? Videos). Here are a few martell points: Please charge the Andan smartphone every night. Change the strip when it no longer adheres to the skin, in about one week. Charge the monitor for 1.5-2.5hr at this time, re-attaching it on the chest once fully charged. The prairie island in the middle of the monitor turns the device on and may be pressed if you are experiencing any cardiac symptoms (shortness of breath, palpitations, etc.). If the Jackpocket smartphone is within ten feet of you, it is transmitting data in real time.The monitor is always recording as long as it has battery and is on you. At the end of thirty days (Saturday November 30, 2024), place everything back into the box (phone, battery charger tester, monitors) and drop it off at UPS or call [phone] to arrange for pick-up. For troubleshooting, supplies replenishment, or device-related concerns please call [employer] at [phone] (press 1, 1) available 25/04 - or - email: [email or web address] Thank you, YOSHI StephensonN, RN Stroke Nurse Navigator [facility] Stroke [place] [phone] Office [email or web address] documented in this encounter [facility] 10-30-2024 Consult note Formatting of th is note might be different from the original. PIV with Ultrasound Consultation and Evaluation Note: Assessment: Patient assessed and evaluated for peripheral IV insertion using ultrasound guidance. ID band present, allergies and limb precautions verified with patient/nurse. No evidence of ecchymosis, infiltration, hematoma, edema, or any condition that would prevent safe insertion of a peripheral IV with ultrasound. Insertion: Ultrasound guided PIV: 20 gauge 1.75 inch length Nexiva catheter inserted into right forearm site. Peripheral IV placed per aseptic technique using a chlorascrub swab for 30 seconds at insertion site under ultrasound guidance on 1 attempt. [] Used 0.5ml 1% lidocaine subcutaneously at insertion site [] Assisted with collection of labs. [X] Call light in reach. [X] Bed low and locked position. [X] Tray table within reach. Reassessment: Flushes easily, no edema, or leakage noted. Occlusive dressing applied. Denies pain at site. Patient tolerated procedure well. Education: Patient/Family informed to notify nurse of any complications including pain, redness, swelling, or leakage post insertion. Extra insertion Note if applicable: [facility] 10-30-2024 Consult note Formatting of th is note might be different from the original. PIV with Ultrasound Consultation and Evaluation Note: Assessment: Patient assessed and evaluated for peripheral IV insertion using ultrasound guidance. ID band present, allergies and limb precautions verified with patient/nurse. No evidence of ecchymosis, infiltration, hematoma, edema, or any condition that would prevent safe insertion of a peripheral IV with ultrasound. Insertion: Ultrasound guided PIV: 20 gauge 1.75 inch length Nexiva catheter inserted into right forearm site. Peripheral IV placed per aseptic technique using a chlorascrub swab for 30 seconds at insertion site under ultrasound guidance on 1 attempt. [] Used 0.5ml 1% lidocaine subcutaneously at insertion site [] Assisted with collection of labs. [X] Call light in reach. [X] Bed low and locked position. [X] Tray table within reach. Reassessment: Flushes easily, no edema, or leakage noted. Occlusive dressing applied. Denies pain at site. Patient tolerated procedure well. Education: Patient/Family informed to notify nurse of any complications including pain, redness, swelling, or leakage post insertion. Extra insertion Note if applicable: documented in this encounter [facility] 10-29-2024 Nurse Note On admission to B10E, from ED a dual RN initial assessment of skin condition was performed by Mary Grace Villanueva RN and CAROLYN Ackerman Skin Assessment: Skin not within defined limits. - Wound(s) identified: Yes Nicholas Score: 16 LDA Added:Yes Mary Grace Kay, RN [facility] 10-29-2024 Emergency department Note Poonam Veloz fell on 09/28/2025 at 1200 on Emergency Department. Detailed description of fall: Patient was alone in her room, attempted to slide to the end of the bed, with both side rails up, and get up to the bedside commode, this RN witnessed patient slide to the floor. Assessment findings: No injuries, examined by ED resident. Provider Brady Tamez contacted by Anika Thomas RN at 1200 and provider response: Post-Fall Interventions/Orders Implemented: ordered hospital bed, curtain open, bed exit alarm, redirected patient on calling for help Patient and family education regarding falls, safety and use of call light: Yes [facility] 10-29-2024 Emergency department Note Poonam Veloz fell on 09/28/2025 at 1200 on Emergency Department. Detailed description of fall: Patient was alone in her room, attempted to slide to the end of the bed, with both side rails up, and get up to the bedside commode, this RN witnessed patient slide to the floor. Assessment findings: No injuries, examined by ED resident. Provider Brady Tamez contacted by Anika Thomas RN at 1200 and provider response: Post-Fall Interventions/Orders Implemented: ordered hospital bed, curtain open, bed exit alarm, redirected patient on calling for help Patient and family education regarding falls, safety and use of call light: Yes Paged neurovasc to review patient orders and clarify. Bed: E053 Expected date: Expected time: Means of arrival: Comments: Bed: E036 Expected date: Expected time: Means of arrival: Comments: Images from the original note were not included. DEPARTMENT OF EMERGENCY MEDICINE CHIEF COMPLAINT CVA Alert HONG Veloz is a 84 y.o. female with history of prior CVA who presents as a transfer from an outside hospital as a stroke alert. Pt reportedly received TNK 14.5 mg at 1655. Pt LKW 1500. Symptoms reportedly were expressive aphasia and right side weakness. 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 REVIEW OF SYSTEMS Unable to obtain ROS secondary to acuity of patient's condition. PAST MEDICAL HISTORY Past Medical History: Diagnosis Date HLD (hyperlipidemia) HTN (hypertension) Stroke 02/2024 Left parietal area? SURGICAL HISTORY No past surgical history on file. CURRENT MEDICATIONS Current Facility-Administered Medications Medication Dose Route Frequency Provider Last Rate Last Admin hydrALAZINE (APRESOLINE) injection 10 mg 10 mg Intravenous Q10 MIN PRN Demarco Mei II, MD Labetalol (NORMODYNE) injection 20 mg 20 mg Intravenous Q10 MIN PRN Demarco Mei II, MD levETIRAcetam (KEPPRA) tablet 500 mg 500 mg Oral Q12H Mariano Landaverde MD Or levETIRAcetam (KEPPRA) injection 500 mg 500 mg Intravenous Q12H Mariano Landaverde MD [START ON 10/28/2024] Sertraline (ZOLOFT) tablet 100 mg 100 mg Oral Daily Mariano Landaverde MD Current Outpatient Medications Medication Sig Dispense Refill aspirin 81 MG Chew Tab chewable tablet Chew 1 tablet daily. Coenzyme Q10 (CoQ-10) 100 MG capsule Take 1 capsule by mouth daily. Instructed by PCP to take to help with statin tolerance. hydroCHLOROthiazide 12.5 MG capsule Take 1 capsule by mouth daily. levETIRAcetam 500 MG tablet Take 1 tablet by mouth every 12 hours. 60 tablet 3 Losartan 50 MG tablet Take 1 tablet by mouth daily. Pitavastatin Calcium 1 MG tablet Take 1 tablet by mouth every 3 days. Sertraline 100 MG tablet Take 1 tablet by mouth daily. ALLERGIES No Known Allergies FAMILY HISTORY Family History Family history unknown: Yes SOCIAL HISTORY Social History Socioeconomic History Marital status: Spouse name: Not on file Number of children: Not on file Years of education: Not on file Highest education level: Not on file Occupational History Not on file Tobacco Use Smoking status: Never Smokeless tobacco: Never Vaping Use Vaping status: Never Used Substance and Sexual Activity Alcohol use: Never Drug use: Never Sexual activity: Not on file Other Topics Concern Not on file Social History Narrative Hosp Med 07/27/2024: Lives with Xavier All medical and social history collected via phone call with him. Was not able to collect all of it due to need for history of present illness collection more urgently. Social Determinants of Health Financial Resource Strain: Not on file Food Insecurity: No Food Insecurity (07/29/2024) Hunger Vital Sign Worried About Running Out of Food in the Last Year: Never true Ran Out of Food in the Last Year: Never true Transportation Needs: No Transportation Needs (07/29/2024) PRAPARE - Transportation Lack of Transportation (Medical): No Lack of Transportation (Non-Medical): No Physical Activity: Not on file Stress: Not on file Social Connections: Not on file Intimate Partner Violence: Patient Unable To Answer (07/29/2024) Humiliation, Afraid, Rape, and Kick questionnaire Fear of Current or Ex-Partner: Patient unable to answer Emotionally Abused: Patient unable to answer Physically Abused: Patient unable to answer Sexually Abused: Patient unable to answer Housing Stability: Low Risk (07/29/2024) Housing Stability Vital Sign Unable to Pay for Housing in the Last Year: No Number of Times Moved in the Last Year: 0 Homeless in the Last Year: No PHYSICAL EXAM BP 82/53 Pulse 82 Temp 97.6 F (36.4 C) (Oral) Resp 24 Wt 65.2 kg (143 lb 11.8 oz) SpO2 100% BMI 27.16 kg/m Smoking Status Never Constitutional: Alert, nontoxic, in no acute distress. HENT: Head: Normocephalic, atraumatic. Nose: Normal. Mouth/Throat: Oropharynx clear. Eyes: Conjunctivae normal, without scleral icterus. EOM intact. Neck: Supple with normal ROM. No tracheal deviation. Cardiovascular: RRR. No m/r/g. Pulmonary/Chest: Normal effort with normal breath sounds. No audible stridor Abdominal: Soft, nontender. Musculoskeletal: No obvious deformities. : Deferred. Neurological: NIHSS as below. Skin: Warm and dry. No diaphoresis. Nursing note and vitals reviewed. NIHSS (Provider) Flowsheet Row First Filed Value Provider NIH Stroke Scale NIH Interval (Provider) admission filed on 10/27/20242111 NIH Level of Conciousness (Provider) 0 filed on 10/27/20242111 NIH LOC Questions (Provider) 2 filed on 10/27/20242111 NIH LOC Commands (Provider) 0 filed on 10/27/20242111 NIH Best Gaze (Provider) 0 filed on 10/27/20242111 NIH Visual (Provider) 0 [BTT] filed on 10/27/20242111 NIH Facial Palsy (Provider) 0 filed on 10/27/20242111 NIH Left Arm Motor (Provider) 0 filed on 10/27/20242111 NIH Right Arm Motor (Provider) 2 filed on 10/27/20242111 NIH Left Leg Motor (Provider) 0 filed on 10/27/20242111 NIH Right Leg Motor (Provider) 1 filed on 10/27/20242111 NIH Limb Ataxia (Provider) 0 [did not understand] filed on 10/27/20242111 NIH Sensory (Provider) 0 [gramce to nox stim x4] filed on 10/27/20242111 NIH Best Language (Provider) 2 filed on 10/27/20242111 NIH Dysarthria (Provider) 0 filed on 10/27/20242111 NIH Extinction and Inattention (Provider) 0 filed on 10/27/20242111 NIH Total Score (Provider) 7 filed on 10/27/20242111 Is NIH=0 Within 180 min of Last Known Well Time? -- IMAGING CT STROKE HEAD-STROKE ALERT ONLY Final Result IMPRESSION: 1. No acute intracranial finding. 2. Remote left MCA territory infarct. Findings were discussed with Mariano Landaverde MD on 10/27/2024 9:14 PM. I personally viewed and interpreted these images and I have reviewed and approved this report. CHEST 1 VIEW PORTABLE (Results Pending) ED COURSE & MEDICAL DECISION MAKING Important diagnostic considerations include: ischemic stroke, hemorrhagic stroke, transient ischemic attack, hypoglycemia, electrolyte abnormality, infection, seizure, complex migraine with unilateral symptoms Initial Plan: Labs: POC glucose, CBC, Chem, LFTs, EKG, PT/INR Imaging: as above Therapeutic: [] PRN Hydralazine & Labetalol [] Nicardipine gtt Goal systolic BP <180 Consultation: [x] Neurovascular [] Neurosurgery ED Course, Medications Given, MDM: Patient arrived via EMS as a stroke alert. Patient evaluated at the CT scanner by myself and neurovascular resident. The patient was found to be hemodynamically stable and protecting airway. In summary, Poonam Veloz is a 84 y.o. female who presents today for concern for stroke alert. Medications Labetalol (NORMODYNE) injection 20 mg (has no administration in time range) hydrALAZINE (APRESOLINE) injection 10 mg (has no administration in time range) levETIRAcetam (KEPPRA) tablet 500 mg (has no administration in time range) Or levETIRAcetam (KEPPRA) injection 500 mg (has no administration in time range) Sertraline (ZOLOFT) tablet 100 mg (has no administration in time range) Disposition: Admit This note was dictated using [employer]. Attempts at proofreading have been made, however errors may still occasionally occur. Demarco Mei II, MD Resident 10/27/242 I saw and independently examined the patient. I agree with the history, examination, and medical decision making as noted by the resident/fellow. Patient txfr osh after tnk for acute stroke. Patient awake, clear lungs, non-tender abdomen, limited speech and right side weakenss. Patient with approximately 10 seconds asymptomatic vtach while in ED. EKG: NSR rate 75, no significant sttw changes Medical Decision Making Patient with acute stroke and transient vtach. No known trauma, fever, infection, or cardiopulmonary symptomatology though concern for underlying acute cardiac condition given ventricular arrhythmia. Plan hospitalization for acute stroke and vtach. Amount and/or Complexity of Data Reviewed Labs: ordered. Radiology: ordered. ECG/medicine tests: ordered and independent interpretation performed. Risk Prescription drug management. Decision regarding hospitalization. Rosales Zelaya MD 10/27/242140 Pt had vtach on monitor when being transported from CT to room 35. Pt awake during and asymptomatic and without reaction. Pt then had R on T. MD Bustos notified. Pt arrived via air from OSH as level A stroke alert. Pt received TNK 14.5 mg at 1655. Pt LKW 1500. Symptoms were expressive aphasia and right side weakness. 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 Pt had seizure like tremors and was given 1.5 g Keppra at 1725 and 0.5 mg ativan at 1725 and another 1 mg ativan at 1835. Pt NIH on arrival to OSH 6 and post TNK was 9-10. NIH per neurology on arrival 7. Bed: E035 Expected date: 10/27/24 Expected time: 12:00 AM Means of arrival: Comments: STAT LINE - STROKE call PT IN CT, WILL CALL BACK Symptoms: APHASIA, RIGHT SIDED NUMBNESS LKW: 1500 Any anticoagulant use: BABY ASA Telestroke completed?: Accepted in transfer? (include destination / alert level): Additional report: CVA 02/2024 CALLING BACK, WISHING TO SEND D/T COMPLEXITY OF PT'S HISTORY. CONNECTED TO DR. SEVILLA, PT ACCEPTED TO [facility] LEVEL A, S/P LYTICS TO MAIN ED, LOAD W/KEPPRA BEFORE SENDING. ED TO CALL IF NEED HELP W/TRANSPORT AND W/ETA. documented in this encounter [facility] 10-29-2024 Emergency department Note Paged neurovasc to review patient orders and clarify. [facility] 10-28-2024 Emergency department Note Bed: E053 Expected date: Expected time: Means of arrival: Comments: [facility] 10-28-2024 Emergency department Note Bed: E036 Expected date: Expected time: Means of arrival: Comments: [facility] 10-27-2024 Physician Emergency department Note Images from the original note were not included. DEPARTMENT OF EMERGENCY MEDICINE CHIEF COMPLAINT CVA Alert HONG Veloz is a 84 y.o. female with history of prior CVA who presents as a transfer from an outside hospital as a stroke alert. Pt reportedly received TNK 14.5 mg at 1655. Pt LKW 1500. Symptoms reportedly were expressive aphasia and right side weakness. 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 REVIEW OF SYSTEMS Unable to obtain ROS secondary to acuity of patient's condition. PAST MEDICAL HISTORY Past Medical History: Diagnosis Date HLD (hyperlipidemia) HTN (hypertension) Stroke 02/2024 Left parietal area? SURGICAL HISTORY No past surgical history on file. CURRENT MEDICATIONS Current Facility-Administered Medications Medication Dose Route Frequency Provider Last Rate Last Admin hydrALAZINE (APRESOLINE) injection 10 mg 10 mg Intravenous Q10 MIN PRN Demarco Mei II, MD Labetalol (NORMODYNE) injection 20 mg 20 mg Intravenous Q10 MIN PRN Demarco Mei II, MD levETIRAcetam (KEPPRA) tablet 500 mg 500 mg Oral Q12H Mariano Landaverde MD Or levETIRAcetam (KEPPRA) injection 500 mg 500 mg Intravenous Q12H Mariano Landaverde MD [START ON 10/28/2024] Sertraline (ZOLOFT) tablet 100 mg 100 mg Oral Daily Mariano Landaverde MD Current Outpatient Medications Medication Sig Dispense Refill aspirin 81 MG Chew Tab chewable tablet Chew 1 tablet daily. Coenzyme Q10 (CoQ-10) 100 MG capsule Take 1 capsule by mouth daily. Instructed by PCP to take to help with statin tolerance. hydroCHLOROthiazide 12.5 MG capsule Take 1 capsule by mouth daily. levETIRAcetam 500 MG tablet Take 1 tablet by mouth every 12 hours. 60 tablet 3 Losartan 50 MG tablet Take 1 tablet by mouth daily. Pitavastatin Calcium 1 MG tablet Take 1 tablet by mouth every 3 days. Sertraline 100 MG tablet Take 1 tablet by mouth daily. ALLERGIES No Known Allergies FAMILY HISTORY Family History Family history unknown: Yes SOCIAL HISTORY Social History Socioeconomic History Marital status: Spouse name: Not on file Number of children: Not on file Years of education: Not on file Highest education level: Not on file Occupational History Not on file Tobacco Use Smoking status: Never Smokeless tobacco: Never Vaping Use Vaping status: Never Used Substance and Sexual Activity Alcohol use: Never Drug use: Never Sexual activity: Not on file Other Topics Concern Not on file Social History Narrative Hosp [facility] 07/27/2024: Lives with Xavier All medical and social history collected via phone call with him. Was not able to collect all of it due to need for history of present illness collection more urgently. Social Determinants of Health Financial Resource Strain: Not on file Food Insecurity: No Food Insecurity (07/29/2024) Hunger Vital Sign Worried About Running Out of Food in the Last Year: Never true Ran Out of Food in the Last Year: Never true Transportation Needs: No Transportation Needs (07/29/2024) PRAPARE - Transportation Lack of Transportation (Medical): No Lack of Transportation (Non-Medical): No Physical Activity: Not on file Stress: Not on file Social Connections: Not on file Intimate Partner Violence: Patient Unable To Answer (07/29/2024) Humiliation, Afraid, Rape, and Kick questionnaire Fear of Current or Ex-Partner: Patient unable to answer Emotionally Abused: Patient unable to answer Physically Abused: Patient unable to answer Sexually Abused: Patient unable to answer Housing Stability: Low Risk (07/29/2024) Housing Stability Vital Sign Unable to Pay for Housing in the Last Year: No Number of Times Moved in the Last Year: 0 Homeless in the Last Year: No PHYSICAL EXAM BP 82/53 Pulse 82 Temp 97.6 F (36.4 C) (Oral) Resp 24 Wt 65.2 kg (143 lb 11.8 oz) SpO2 100% BMI 27.16 kg/m Smoking Status Never Constitutional: Alert, nontoxic, in no acute distress. HENT: Head: Normocephalic, atraumatic. Nose: Normal. Mouth/Throat: Oropharynx clear. Eyes: Conjunctivae normal, without scleral icterus. EOM intact. Neck: Supple with normal ROM. No tracheal deviation. Cardiovascular: RRR. No m/r/g. Pulmonary/Chest: Normal effort with normal breath sounds. No audible stridor Abdominal: Soft, nontender. Musculoskeletal: No obvious deformities. : Deferred. Neurological: NIHSS as below. Skin: Warm and dry. No diaphoresis. Nursing note and vitals reviewed. NIHSS (Provider) Flowsheet Row First Filed Value Provider NIH Stroke Scale NIH Interval (Provider) admission filed on 10/27/20242111 NIH Level of Conciousness (Provider) 0 filed on 10/27/20242111 NIH LOC Questions (Provider) 2 filed on 10/27/20242111 NIH LOC Commands (Provider) 0 filed on 10/27/20242111 NIH Best Gaze (Provider) 0 filed on 10/27/20242111 NIH Visual (Provider) 0 [BTT] filed on 10/27/20242111 NIH Facial Palsy (Provider) 0 filed on 10/27/20242111 NIH Left Arm Motor (Provider) 0 filed on 10/27/20242111 NIH Right Arm Motor (Provider) 2 filed on 10/27/20242111 NIH Left Leg Motor (Provider) 0 filed on 10/27/20242111 NIH Right Leg Motor (Provider) 1 filed on 10/27/20242111 NIH Limb Ataxia (Provider) 0 [did not understand] filed on 10/27/20242111 NIH Sensory (Provider) 0 [gramce to nox stim x4] filed on 10/27/20242111 NIH Best Language (Provider) 2 filed on 10/27/20242111 NIH Dysarthria (Provider) 0 filed on 10/27/20242111 NIH Extinction and Inattention (Provider) 0 filed on 10/27/20242111 NIH Total Score (Provider) 7 filed on 10/27/20242111 Is NIH=0 Within 180 min of Last Known Well Time? -- IMAGING CT STROKE HEAD-STROKE ALERT ONLY Final Result IMPRESSION: 1. No acute intracranial finding. 2. Remote left MCA territory infarct. Findings were discussed with Mariano Landaverde MD on 10/27/2024 9:14 PM. I personally viewed and interpreted these images and I have reviewed and approved this report. CHEST 1 VIEW PORTABLE (Results Pending) ED COURSE & MEDICAL DECISION MAKING Important diagnostic considerations include: ischemic stroke, hemorrhagic stroke, transient ischemic attack, hypoglycemia, electrolyte abnormality, infection, seizure, complex migraine with unilateral symptoms Initial Plan: Labs: POC glucose, CBC, Chem, LFTs, EKG, PT/INR Imaging: as above Therapeutic: [] PRN Hydralazine & Labetalol [] Nicardipine gtt Goal systolic BP <180 Consultation: [x] Neurovascular [] Neurosurgery ED Course, Medications Given, MDM: Patient arrived via EMS as a stroke alert. Patient evaluated at the CT scanner by myself and neurovascular resident. The patient was found to be hemodynamically stable and protecting airway. In summary, Poonam Veloz is a 84 y.o. female who presents today for concern for stroke alert. Medications Labetalol (NORMODYNE) injection 20 mg (has no administration in time range) hydrALAZINE (APRESOLINE) injection 10 mg (has no administration in time range) levETIRAcetam (KEPPRA) tablet 500 mg (has no administration in time range) Or levETIRAcetam (KEPPRA) injection 500 mg (has no administration in time range) Sertraline (ZOLOFT) tablet 100 mg (has no administration in time range) Disposition: Admit This note was dictated using M[employer]ink[employer] Dictation Software. Attempts at proofreading have been made, however errors may still occasionally occur. Demarco Mei II, MD Resident 10/27/246 [facility] Work Phone: 10-27-2024 Note Acute Coronary Syndr ome (ACS): Initial Evaluation and Management: [email or web address] [facility] 10-27-2024 Physician Emergency department Note I saw and independently examined the patient. I agree with the history, examination, and medical decision making as noted by the resident/fellow. Patient txfr osh after tnk for acute stroke. Patient awake, clear lungs, non-tender abdomen, limited speech and right side weakenss. Patient with approximately 10 seconds asymptomatic vtach while in ED. EKG: NSR rate 75, no significant sttw changes Medical Decision Making Patient with acute stroke and transient vtach. No known trauma, fever, infection, or cardiopulmonary symptomatology though concern for underlying acute cardiac condition given ventricular arrhythmia. Plan hospitalization for acute stroke and vtach. Amount and/or Complexity of Data Reviewed Labs: ordered. Radiology: ordered. ECG/medicine tests: ordered and independent interpretation performed. Risk Prescription drug management. Decision regarding hospitalization. Rosales Zelaya MD 10/27/242140 [facility] Work Phone: 10-27-2024 Emergency department Note Pt had vtach on monitor when being transported from [place] to room 35. Pt awake during and asymptomatic and without reaction. Pt then had R on T. MD Bustos notified. [facility] 10-27-2024 Emergency department Note Pt arrived via air from OSH as level A stroke alert. Pt received TNK 14.5 mg at 1655. Pt LKW 1500. Symptoms were expressive aphasia and right side weakness. 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 Pt had seizure like tremors and was given 1.5 g Keppra at 1725 and 0.5 mg ativan at 1725 and another 1 mg ativan at 1835. Pt NIH on arrival to OSH 6 and post TNK was 9-10. NIH per neurology on arrival 7. [facility] 10-27-2024 Emergency department Note Bed: E035 Expected date: 10/27/24 Expected time: 12:00 AM Means of arrival: Comments: [facility] 10-27-2024 Emergency department Note STAT LINE - STROKE call PT IN [place], WILL CALL BACK Symptoms: APHASIA, RIGHT SIDED NUMBNESS LKW: 1500 Any anticoagulant use: BABY ASA Telestroke completed?: Accepted in transfer? (include destination / alert level): Additional report: [facility] 02/2024 CALLING BACK, WISHING TO SEND D/T COMPLEXITY OF PT'S HISTORY. CONNECTED TO DR. SEVILLA, PT ACCEPTED TO [facility] LEVEL A, S/P LYTICS TO MAIN ED, LOAD W/KEPPRA BEFORE SENDING. ED TO CALL IF NEED HELP W/TRANSPORT AND W/ETA. [facility] 07-30-2024 Nurse Note Report given to , that pt left the unit with the transportation. she has her medications, KELLY and AVS. Fax AVS and kelly to [facility] PIV removed, catheter intact. Cotton ball placed over site, pt instructed on bleeding. Telemetry removed. Pt changed into street clothes independently. Pt educated on AVS summary, all questions answered. Pt instructed to call physician if pt developed difficulty breathing, headache or visual disturbances, extreme fatigue, persistent dizziness or light-headedness and for persistent nausea or vomiting or temperature > 100.4. Pt instructed to follow up with (physician) (date), address and phone number pointed out to pt. Discussed medication changes with pt and gave pt his/her new prescription(s). Pt verbalized understanding of AVS and medication changes. All patient belongings sent with patient. [facility] 07-30-2024 Miscellaneous Notes Report given to , that pt left the unit with the transportation. she has her medications, KELLY and AVS. Fax AVS and kelly to [facility] PIV removed, catheter intact. Cotton ball placed over site, pt instructed on bleeding. Telemetry removed. Pt changed into street clothes independently. Pt educated on AVS summary, all questions answered. Pt instructed to call physician if pt developed difficulty breathing, headache or visual disturbances, extreme fatigue, persistent dizziness or light-headedness and for persistent nausea or vomiting or temperature > 100.4. Pt instructed to follow up with (physician) (date), address and phone number pointed out to pt. Discussed medication changes with pt and gave pt his/her new prescription(s). Pt verbalized understanding of AVS and medication changes. All patient belongings sent with patient. Assessment remains unchanged. Vitals are stable. Pt denies pain at this time. Will continue to monitor and assess. Report given to [facility]. 07/30/24 1129 Final Discharge Planning Discharge Disposition Home with Home Health Services at Discharge Physical Therapy;Occupational Therapy;Speech Therapy;Intermediate Community Agency Name(s) For Handoff Home Health Services [facility] Name For Handoff Intake Phone For Handoff [phone] p Fax For Handoff [phone] f Problem: OT - ADLs Goal: Grooming - Patient will complete grooming edge of bed with supervision for improved ability to safely complete ADLs. Outcome: Not Progressing Problem: OT - Strength/ROM Goal: Fine Motor Coordination - Patient will participate in fine motor coordination functional task completing 10/10 reps with supervision for improved fine motor strength and coordination required to complete self-care tasks. Outcome: Ongoing Problem: OT - Transfers Goal: Transfers Toilet/ Bedside Commode - Patient will transfer to/from toilet/bedside commode with standby assistance for improved ability to safely complete ADLs. Outcome: Progressing Problem: OT - Strength/ROM Goal: Neuro Re-education - Patient will participate in neuro re-ed of right upper extremity with supervision and 100% accuracy for improved functional use in ADLs. Outcome: Progressing Problem: OT - Cognition Goal: Cognition - Command Following - Patient will follow 100% of single commands during ADL task. Outcome: Progressing Problem: PT - General Goals Goal: Supine <-> Sit Transfers - Patient will perform supine to/from sit transfers with modified independence and without use of hospital bed features in order to improve functional mobility and safety. Outcome: Progressing Goal: Sit <-> Stand Transfers - Patient will perform sit to/from stand transfers with modified independence and least restrictive device in order to improve functional mobility and safety. Outcome: Progressing Goal: Standing Endurance/Balance - Patient will perform standing balance tasks for 10 min with supervision and least restrictive device while maintaining an RPE of less than 4/10 to improve endurance and safety with standing tasks. Outcome: Progressing Goal: Ambulation - Patient will ambulate 250 feet with supervision and least restrictive device to improve ability to safely navigate home and community. Outcome: Progressing Problem: Stroke, Ischemic (Includes Transient Ischemic Attack) Goal: Optimal Coping Outcome: Progressing Goal: Effective Bowel Elimination Outcome: Progressing Goal: Optimal Cerebral Tissue Perfusion Outcome: Progressing Goal: Optimal Cognitive Function Outcome: Progressing Goal: Improved Communication Skills Outcome: Progressing Goal: Optimal Functional Ability Outcome: Progressing Goal: Optimal Nutrition Intake Outcome: Progressing Goal: Effective Oxygenation and Ventilation Outcome: Progressing Goal: Improved Sensorimotor Function Outcome: Progressing Goal: Safe and Effective Swallow Outcome: Progressing Goal: Effective Urinary Elimination Outcome: Progressing Pt resting quietly in bed with call light in reach and bed exit armed. Assessment unchanged since previous assessment except as documented. No s/s of distress noted, pt denies any other needs at this time. Room/Environment checked for safety. Pt resting quietly in bed with call light in reach and bed exit armed. Assessment unchanged since previous assessment except as documented. No s/s of distress noted, pt denies any other needs at this time. Room/Environment checked for safety. Reassessment done. Denies pain or discomfort. Patient is off the EEG. Call light is within reach. 07/29/24 1440 Transportation Needs In the past 12 months, has lack of transportation kept you from medical appointments or from getting medications? no In the past 12 months, has lack of transportation kept you from meetings, work, or from getting things needed for daily living? No Food Insecurity Within the past 12 months, you worried that your food would run out before you got the money to buy more. Never true Within the past 12 months, the food you bought just didn't last and you didn't have money to get more. Never true Housing Stability In the last 12 months, was there a time when you were not able to pay the mortgage or rent on time? N In the past 12 months, how many times have you moved where you were living? 0 At any time in the past 12 months, were you homeless or living in a skilled nursing (including now)? N Utilities In the past 12 months has the [employer], gas, oil, or water [employer] threatened to shut off services in your home? No Intimate Partner Violence Within the last year, have you been afraid of your partner or ex-partner? Pt Unable Within the last year, have you been humiliated or emotionally abused in other ways by your partner or ex-partner? Pt Unable Within the last year, have you been kicked, hit, slapped, or otherwise physically hurt by your partner or ex-partner? Pt Unable Within the last year, have you been raped or forced to have any kind of sexual activity by your partner or ex-partner? Pt Unable The above information was obtained from the patients spouse, Xavier Veloz. MAXWELL Torres, RN Clinical Systems Qa Analyst Phoned Xavier Veloz, spouse at [phone] and identified self as the CM. Patient was admitted on 07/27/24 for a stroke. She has word finding difficulty. Patient has Medicare [employer] insurance with Rx coverage. PCP is Dr. Clyde Downing. LNOK is Xavier Veloz, spouse. Mr. Veloz stated that there is no one else he can have as a contact for his . The patient has a Living Will and HPOA at home. Requested that Mr. Veloz bring it to the hospital and so it could be placed in her records. Mr. Veloz stated that his was brought to [facility] per [facility] from [facility]. He is currently ill with cancer and receiving Chemo treatments and unable to physically drive to [place]. Discussed that PT has recommended SNF. He is agreeable to the SNF if it is at the [facility]. If the patient is to come home he would like nursing care from [facility]. The patient is currently receiving out patient speech therapy at [facility], which is where he would like all of the out patient therapies. The location is one mile from their home. Mr. Veloz expressed that his greatest concern is getting his transported home since he cannot drive to [place] to bring her home. Discussed that ambulance or ambulette transport should be possible. Reviewed that referrals will be made for the rehab at [facility] and [facility]. The CM will contact him to discuss discharge plans. Contact information for the weekday CM was provided per his request. 07/29/24 1233 Patient Assessment Completed Patient Assessment Completed Initial Initial Discharge Planning Expected Discharge Disposition SNF Transportation Available for Discharge Ambulance;Wheelchair Van Anticipated DME none Anticipated Services at Discharge Speech Therapy;Intermediate;Physical Therapy;Occupational Therapy Admission Assessment Reason for Admission Stroke Is the patient able to participate in the assessment? No Explanation of why patient is unable to participate word finding with difficulty Information source Significant Other or Partner Information Source Name/Contact Xavier Veloz, Demographics Verified and Updated Yes Has the patient been admitted to any hospital in the last 30 days? No Advanced Care Planning Has the patient completed Advance Directives? Completed, Not Available in Medical Record Copy of Advance Directives was requested? Yes Advance Directives Requested From Spouse, Xavier Veloz. Legal Next of Kin Does the patient have a Guardian? No Spouse Yes Name and Contact information Xavier Veloz Adult Child(kely), List All Adult Children No Parent(s) - List All Living Parents No Adult Sibling(s), List All Adult Siblings No Nearest Adult Related by Blood or Adoption No Patient Reports No Relatives by Blood or Adoption. No Reviewed and Updated in Demographics? Yes Outpatient Providers Does patient have a primary care physician? Yes (PCP - Dr. Clyde Downing) When was the patient's last PCP visit? Unknown at this time Does the patient follow any specialists? Yes Environment/Caregivers Is the patient from a facility or nursing home? No Patient lives with Spouse or Partner Living Environment House (single story) How many steps does the patient have to navigate to enter or inside the home? 2 Does the patient have a first floor set-up with bed and bathroom? Yes Patient Caregiving Responsibilities Self Patient-identified caregiver/support network Family (spouse) Who does the patient identify as a teachable caregiver(s)? Spouse or Partner Services Does the patient use a home health or hospice agency? No Current with dialysis? No Does the patient use any community programs or services? No Does patient use DME? grab bars Does the patient use oxygen? No Anticipated Changes Related to Illness/Injury? Yes Inability to care for self? Yes Inability to care for dependents? N/A Inability to return to school/work? N/A Initial ADLs Prior to Arrival What is the patient's baseline physical functioning prior to this acute illness? independent What is the patient's baseline cognitive functioning prior to this acute illness? independent Is the patient's baseline functioning changed by this acute illness? Yes Changes observed Physical;Cognitive Concerns with patient being able to care for themselves at home? Yes Are there therapy or specialists consults? Yes Select consult type PT Does the patient's home require any home modifications for discharge? No Medication Management Does the patient have prescription insurance coverage? Yes Is the patient on Anticoagulation? 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 No Employed? Retired Coping/Stress Concerns about patient s coping and stress? Unable to Assess Concerns about patient s caregiver s coping and stress? No Values and Beliefs Cultural or lutheran practices that may impact discharge planning and/or medical care? Yes MAXWELL Torres, RN Clinical Systems Qa Analyst Problem: Pain Acute Goal: Optimal Pain Control and Function Outcome: Progressing Intervention: Prevent or Manage Pain Flowsheets (Taken 07/29/2024 1541) Bowel Elimination Promotion: privacy promoted Medication Review/Management: medications reviewed Reassessment done. Patient denies pain or discomfort. Able to turn and reposition self. Call light is within reach. No seizure activity noted at this time. Plan of care continues. Problem: Swallowing Impairment Goal: Optimal Eating/Swallowing without Aspiration Outcome: Progressing Problem: Fall Injury Risk Goal: Fall/Trauma/Injury Risk: Absence of Trauma/Injury/Falls Description: Patient will demonstrate the desired outcomes. Outcome: Progressing Goal: Knowledge of risk factors/behavior modification Description: Knowledge of risk factors/behavior modification for fall/injury prevention Outcome: Progressing Assessment completed without changes to previous except as documented. Pt more awake and alert w/ modified NIH of 1. Safety rounds completed with pt in bed and call light within reach. Bed exit alarm set. Problem: Dysphagia Goal: Ongoing Assessment - Patient will participate in assessment by accepting various PO consistency trials with appropriate participation/oral acceptance and no significant respiratory complications to determine need for dysphagia services Outcome: Met Problem: POULTRY RAISER - Cognition Goal: Memory: Hospital Facts - Patient will utilize preferred compensatory memory strategies with moderate cues to teach back at least 2 facts related to their hospitalization/plan of care across a 3 min delay to support generalization of strategy use Outcome: Progressing Problem: POULTRY RAISER - Language Goal: Name Basic Objects/Pictures - Patient will name basic objects/pictures with 80% accuracy, with maximum cues in order to improve word-finding and functional communication Outcome: Progressing Post fall huddle completed by this RN, bedside RN Noni Tran, and 3 other RNs including Kely Corona RN. Jillian Yusuf RN, and Jacqueline Bean RN. Huddle completed at pt bedside, with pt involved. When asked pt what staff could have done different to help her. Pt states that there is nothing that could have been done, she was just trying to do things she thought she could prior. Prior to the fall pt bed alarm did sound and CREDIT RISK REVIEW OFFICER Rishil responded immediately as this RN was at the nurses station and had just taken a call from pt and watched the CREDIT RISK REVIEW OFFICER respond as soon as the light came on. Bed alarm was connected to call light system at the time. CREDIT RISK REVIEW OFFICER walked past the nurses station, and this RN had asked CREDIT RISK REVIEW OFFICER if he was still helping 360. Pt states he was getting pt a spoon. This RN asked tree girdler to relay a message to pt since he was going back to the room that pt's had just called to check on her. Shortly after bedside RN came to this RN and stated the pt had fallen. Per report given from RN the pt reached for her bedside table and slid from the bed. Pt was sitting on edge of bed at the time CREDIT RISK REVIEW OFFICER left room. This is the same report pt gave during post fall huddle. Pt reported no pain, and declines any interventions. Pt states she did not hit her head. RN offered for MD to come to bedside and pt refused. Dr. Cummings was contacted by this RN at [phone] which was shortly after pt fell. Post-Fall Interventions that were put in place was to keep the bed alarm on for pt. Pt reminded to call for assistance to bed. Reminder placed on board for pt not to get up without help. Problem: OT - ADLs Goal: Grooming - Patient will complete grooming edge of bed with supervision for improved ability to safely complete ADLs. Outcome: Ongoing Problem: OT - Strength/ROM Goal: Neuro Re-education - Patient will participate in neuro re-ed of right upper extremity with supervision and 100% accuracy for improved functional use in ADLs. Outcome: Ongoing Goal: Fine Motor Coordination - Patient will participate in fine motor coordination functional task completing 10/10 reps with supervision for improved fine motor strength and coordination required to complete self-care tasks. Outcome: Ongoing Problem: OT - Transfers Goal: Transfers Toilet/ Bedside Commode - Patient will transfer to/from toilet/bedside commode with standby assistance for improved ability to safely complete ADLs. Outcome: Progressing Problem: OT - Cognition Goal: Cognition - Command Following - Patient will follow 100% of single commands during ADL task. Outcome: Progressing Problem: PT - General Goals Goal: Supine <-> Sit Transfers - Patient will perform supine to/from sit transfers with modified independence and without use of hospital bed features in order to improve functional mobility and safety. Outcome: Ongoing Goal: Sit <-> Stand Transfers - Patient will perform sit to/from stand transfers with modified independence and least restrictive device in order to improve functional mobility and safety. Outcome: Ongoing Goal: Standing Endurance/Balance - Patient will perform standing balance tasks for 10 min with supervision and least restrictive device while maintaining an RPE of less than 4/10 to improve endurance and safety with standing tasks. Outcome: Ongoing Goal: Ambulation - Patient will ambulate 250 feet with supervision and least restrictive device to improve ability to safely navigate home and community. Outcome: Ongoing Patient is transported on bed to [place]. Report received from CAROLYN soliman. Patient on ship mate, is NSR. Alert and oriented.ticket to ride is with patient. Pt completed test with no complaints. Transported back to room. CAROLYN Soliman notified [facility] Swallow put on hold due to pt being drowsy and lethargic. Safety concern for aspiration so chapis swallow put on hold until pt is more alert. Assessment completed without changes to previous except as documented. Safety rounds completed with pt in bed and call light within reach. Bed exit alarm set. NIH modified scale of 1. Images from the original note were not included. On admission to [facility], from another [facility] inpatient unit a dual RN initial assessment of skin condition was performed by Kulwinder Garcia RN and Laura Solis RN. Skin Assessment: Skin not within defined limits. - Photo taken and uploaded into notes in I[facility]: Yes LDA Added:No Kulwinder Garcia RN Patient transported from [place] to on tele and pulse ox. Report called previously. Notes from conversation with : February 2024 - first stroke afterwards trouble readings letters and numbers - currently in speech therapy. 12pm today had speech therapy appointment - drove herself - just passed her driving test 1-2 weeks ago. Sounds like had statin myalgia - dosing was reduced and started on Q10. 20/30 vision at eye doctor this past month - doesn't not have great peripheral vision. She does not wear glasses except when driving at night. noted when he was with her in the ED her right arm seemed weak and she could wiggle her fingers He thought her mouth looked a little off but the nurse said it was fine. reports she will move her legs throughout the night when sleeping (not officially diagnosed at [facility]) - he will take her feet and slide them up and down on her heels and he noted she was doing this prior to transfer but it was more pronounced that what she does when in bed. Med information from bottles at home: Sertraline 100 milligrams once a day Pitavistatin 1 milligrams (livalo brand) daily Hydrochlorothiazide 12.5 milligrams I cap daily (thinks this is the one causing the issues) Losartan 50 milligrams taking daily Qunol Ultra CQ-10 - 100 milligrams take with statin - taking for about 2 weeks. ASA 81 milligrams po daily documented in this encounter [facility] 07-30-2024 History of Present illness Narrative Images from the original note were not included. [facility] Note: Non-Verbal Med Rec [facility] received the following discharge prescription(s): Total cost is $0.00. I have reviewed the Discharge Rx Reconciliation Report. The discharge prescription(s) will be delivered to the patient on 07/30/2024. Debora Lozano RPh,PharmD Specialty ([place]) [phone] [facility] [phone] [facility] Bedside Delivery [phone] [facility] [phone] [facility] Bedside Delivery [phone] [place] [phone] [facility] Bedside Delivery [phone] [place] [phone] [facility] [phone] Acute Occupational Therapy Treatment Prior Gross Functional Mobility: independent Current AM-PAC score(s): CURRENT AM-PAC Activity Raw Score: 15 Based on the above AM-PAC score(s), and OT clinical judgment, discharge destination recommendation is: Inpatient Rehab Facility Post-acute recommendations: Pt would benefit from skilled OT 5-7x/wk to work toward functional safety and ADL completion at home upon discharge from rehab. Supporting Factors (would benefit from skilled therapy services): Decreased strength, Impaired functional status, Patient status is anticipated to be appropriate to tolerate inpatient rehab therapy requirements at time of discharge from acute care, Impaired balance, Decreased endurance, Impaired self-care abilities, Assistance needed with functional mobility, Impaired cognitive status, Recent decline in functional mobility, Fall risk, Recent decline in self-care abilities, Recent decline in cognitive function Mobility equipment available at home: none used ADL equipment available at home: none Equipment recommendations for discharge: to be determined Current therapy frequency recommendation(s) in acute: 6 times a week Activity Recommendations for outside of rehab session: +BSC with 2WW and 1 assist, up to chair for meals Precautions and Weightbearing Status: OT Existing Precautions/Restrictions: fall Telemetry Patient Safety Communication Prior to Visit: Nursing, Rehab team Subjective: Pt agreeable to OT session this date. Pt stated my is taking me home today. Pain: General Pain Documentation (Adult, OB, Peds) Presence of Pain: denies pain/discomfort Presence of Pain Score (Auto-calculated): 0 Objective/Observation: Vitals/Vitals Responses to Treatment: WFL. No adverse responses during OT session. O2 Device: room air Speech Speech: word-finding difficulties (Aphasia) Cognition Overall Cognitive Status: (At risk) Arousal/Alertness: Appropriate responses to stimuli Orientation Level: Oriented to person, Oriented to place, Oriented to situation Following Commands: Follows one step commands with increased time, Follows one step commands with repetition Safety Judgment: Decreased awareness of need for assistance, Decreased awareness of need for safety Cognition Comments: Pleasant and cooperative; poor safety awareness ADL Assessment/Intervention: ADLs: ADL Assessment: Grooming Deficit, Bathing Deficit, Toileting Deficit ADL Anticipated Performance (ADLs not directly observed this session): Eating, UE Dressing, LE Dressing Eating Assistance: Set up supervision Grooming Assistance: Minimal Grooming Location: (Seated on BSC) Grooming Deficit: Brushing hair, Increased time to complete, Retrieval of items Grooming Skilled Rationale (Verbal/Tactile/Visual/Demonstrati on): Facilitate positioning, Technique of activity, Cues for increased safety Grooming Intervention/Details: Max A to brush hair while sitting on BSC; increased assist required d/t EEG glue in hair. Estimated min A for complete grooming routine Bathing Assistance: Maximal Bathing Location: (Seated on BSC) Bathing Deficit: (Wash/dry hair) Bathing Skilled Rationale (Verbal/Tactile/Visual/Demonstrati on): Technique of activity Bathing Intervention/Details: Max A to wash hair using shampoo cap UE Dressing Assistance: Maximal LE Dressing Assistance: Maximal Toilet Assistance: Minimal Toileting Location: bedside commode Toileting Deficit: Increased time to complete, Clothing management up, Clothing management down, Perineal hygiene, Grab bar use Toilet Skilled Rationale (Verbal/Tactile/Visual/Demonstrati on): Facilitate positioning, Cues for cognitive deficit, Technique of activity, Cues for increased safety, Setup, Supervision Toileting Intervention/Details: Pt with positive bladder void this date. Pt able to use R hand to complete seated pericare, but required min A to manage gown Extremity Assessments: See OT Evaluation flowsheet for Extremity Measurement updates. Balance: Sitting Balance Static Sitting-Level of Assistance: Supervision Dynamic Sitting-Level of Assistance: Supervision Standing Balance Static Standing-Level of Assistance: Stand-by assist Dynamic Standing-Level of Assistance: Contact guard Standing-Balance Support: 2 wheeled walker Mobility Assessment/Intervention: Supine to Sit Mobility Lake Level: Supine->Sit: stand-by assist Bed Features/Set-up: Supine->Sit: Head of bed elevated, Use of bed rail Skilled Rationale: Positioning, Sequencing, Verbal cues, Finding/maintaining midline positioning, Technique of activity, Initiation and execution of task, Cues for increased safety Skilled Intervention/Details: Supine->Sit: VC for initiation and body position EOB Sit to Supine Mobility Lake Level: Sit->Supine: not tested Skilled Intervention/Details: Sit->Supine: Pt sitting in chair at end of session; RN aware Transfer Assessment/Intervention: Sit to Stand Transfer Lake Level: Sit->Stand: stand-by assist Skilled Rationale: Positioning, Sequencing, Hand placement, Verbal cues, Finding/maintaining midline positioning, Technique of activity, Initiation and execution of task, Cues for increased safety Skilled Intervention/Details: Sit->Stand: x2 from EOB with no UE support. VC for initiation Stand to Sit Transfer Lake Level: Stand->Sit: stand-by assist Assistive Device: Stand->Sit: 2 wheeled walker, armed chair Skilled Rationale: Positioning, Sequencing, Hand placement, Verbal cues, Controlled descent for sitting, Technique of activity, Initiation and execution of task, Cues for increased safety Skilled Intervention/Details: Stand->Sit: x1 to EOB with 2WW and x1 to chair with no UE support. VC for body position prior to sitting; VC for reach back method to control descent Bed-Chair Transfer Lake Level: Bed<->Chair: contact guard assist Assistive Device: Bed<->Chair: (BSC) Skilled Rationale: Positioning, Sequencing, Hand placement, Verbal cues, Controlled descent for sitting, Technique of activity, Initiation and execution of task, Cues for increased safety Skilled Intervention/Details: Bed<->Chair: x1 SPT EOB>BSC. VC for sequencing and technique. CGA for safety and line management Toilet Transfer Lake Level: Toilet: contact guard assist Assistive Device: Toilet: 2 wheeled walker, bedside commode Skilled Rationale: Positioning, Sequencing, Hand placement, Verbal cues, Controlled descent for sitting, Technique of activity, Initiation and execution of task, Cues for increased safety Skilled Intervention/Details: Toilet: x1 on/off BSC. VC for use of toilet frame to assist transfer Functional Mobility: Functional Mobility Lake Level: Functional Mobility/Gait: (SBA-CGA) Assistive Device: Functional Mobility/Gait: 2 wheeled walker Functional Mobility Distance: Distance needed for common household mobility Outcome Score(s): CURRENT [facility] Daily Activity Inpatient Short Form Putting on/Taking Off Lower Body Clothin - A Lot of Assistance Bathin - A Lot of Assistance Toiletin - A Little Assistance Putting on/Taking Off Upper Body Clothin - A Lot of Assistance Groomin - A Little Assistance Eatin - A Little Assistance [facility]RENT [facility] Activity Raw Score: 15 [facility]RENT [facility] Activity Functional Limitation/Modifier: 56.46% Currently Impaired in Daily Activity - CK Assessment & Plan: Pt progressing towards neuro re-ed goal this date; pt able to use R hand to complete pericare this date. Pt continues to benefit from acute care OT services at this time. Patient Instruction/Education this session: Learners: Patient Education provided: Activity outside of therapy, Balance training, Bed mobility, Discharge recommendations, Fall precautions, Functional transfers, Gait training safety, Plan of care, Positioning, Role of this discipline, Safety Stroke education: Role of rehabilitation discipline Plan for next session: ADL participation and transfers as able Acute OT Goals Plan of Care by Mimi Hand OT at 07/30/2024 10:54 AM Version 1 of 1 Problem: OT - ADLs Goal: Grooming - Patient will complete grooming edge of bed with supervision for improved ability to safely complete ADLs. Outcome: Not Progressing Problem: OT - Strength/ROM Goal: Fine Motor Coordination - Patient will participate in fine motor coordination functional task completing 10/10 reps with supervision for improved fine motor strength and coordination required to complete self-care tasks. Outcome: Ongoing Problem: OT - Transfers Goal: Transfers Toilet/ Bedside Commode - Patient will transfer to/from toilet/bedside commode with standby assistance for improved ability to safely complete ADLs. Outcome: Progressing Problem: OT - Strength/ROM Goal: Neuro Re-education - Patient will participate in neuro re-ed of right upper extremity with supervision and 100% accuracy for improved functional use in ADLs. Outcome: Progressing Problem: OT - Cognition Goal: Cognition - Command Following - Patient will follow 100% of single commands during ADL task. Outcome: Progressing OT treatment consisted of the following to work and progress towards the above goal(s): OT Evaluation and Treatment Time Self Care/Home Management (ADLs) Time Entry: 13 Treating Therapist: Mimi Hand OT Additional Details: OT Co-Eval/Treatment Information Co-evaluation/co-treatment performed?: Yes, simultaneous billable skilled care was necessary due to medical complexity and functional deficits Other discipline: PT Rationale for need to co-eval/treat: cognitive issues, coordination issues, postural control Co-treatment goal focus: balance, mobility, transfer, endurance, coordination, self-care, cognition Assisted by during session: Goldie PT PPE used during patient interaction: gloves Patient location at end of session: chair Alarms on at end of session: RN aware Needs in reach. Time In: 1053 Time Out: 1106 Total Visit Time: 13 minutes Total Treatment Time (skilled, billable minutes): 13 minutes Upon discontinuation of Acute Care Occupational Therapy Services or patient discharge from the hospital this note represents the current Occupational Therapy Discharge Summary. Acute Physical Therapy Treatment Prior Gross Functional Mobility: independent Current AM-PAC score(s): CURRENT AM-PAC Mobility Raw Score: 18 Based on the above AM-PAC score(s) and PT clinical judgment, patient is a good candidate for discharge to Inpatient Rehab Facility Supporting Factors (would benefit from skilled therapy services): Patient status is anticipated to be appropriate to tolerate inpatient rehab therapy requirements at time of discharge from acute care, Impaired functional status, Decreased strength, Impaired balance, Decreased endurance necessitating skilled therapy services, but able to tolerate therapy requirements for inpatient rehab, Impaired self-care abilities, Impaired cognitive status, Assistance needed with functional mobility, Fall risk, Recent decline in functional mobility, Recent decline in self-care abilities, Recent decline in cognitive function, Patient has appropriate assistance and setup at home for ultimate discharge to home once patient has progressed functionally following inpatient rehab Mobility equipment available at home: none used ADL equipment available at home: none Equipment needed for discharge: to be determined Current therapy frequency recommendation in acute: Therapy Frequency: 6 times a week Activity Recommendations for outside of rehab session: +BSC with 2WW and 1 assist, up to chair for meals Precautions and Weightbearing Status: Existing Precautions/Restrictions: fall, seizure Telemetry Patient Safety Communication Prior to Visit: Nursing, Rehab team Subjective: I like those people pt referring to the Home Health agency Pain: General Pain Documentation (Adult, OB, Peds) Presence of Pain: not present: non-verbal indicator of pain/discomfort Presence of Pain Score (Auto-calculated): 0 Objective/Observation: Vitals/Vitals Responses to Treatment: No vitals taken, no adverse response noted during PT session O2 Device: room air Cognition Overall Cognitive Status: (at risk) Arousal/Alertness: Appropriate responses to stimuli Orientation Level: Oriented to person, Oriented to place, Oriented to situation Following Commands: Follows one step commands without difficulty, Follows multistep commands with repetition Safety Judgment: Decreased awareness of need for assistance Cognition Comments: pleasant and cooperative Balance: Sitting Balance Static Sitting-Level of Assistance: Supervision Dynamic Sitting-Level of Assistance: Supervision Standing Balance Static Standing-Level of Assistance: Stand-by assist Dynamic Standing-Level of Assistance: Stand-by assist, Contact guard Standing-Balance Support: 2 wheeled walker Mobility Assessment/Intervention: Supine to Sit Mobility Lake Level: Supine->Sit: stand-by assist Bed Features/Set-up: Supine->Sit: Head of bed elevated, Use of bed rail Skilled Rationale: Verbal cues, Positioning, Sequencing, Technique of activity, Cues for increased safety, Initiation and execution of task Skilled Intervention/Details: Supine->Sit: Cues for initiation of transition. Sit to Supine Mobility Lake Level: Sit->Supine: not tested Skilled Intervention/Details: Sit->Supine: Pt seated in armed chair at end of session. Transfer Assessment/Intervention: Sit to Stand Transfer Lake Level: Sit->Stand: stand-by assist Assistive Device: Sit->Stand: 2 wheeled walker, other (see comments) (no AD) Skilled Rationale: Verbal cues, Positioning, Sequencing, Hand placement, Technique of activity, Initiation and execution of task, Cues for increased safety Skilled Intervention/Details: Sit->Stand: Performed 2x from EOB, 1x from BSC with SBA. Stand to Sit Transfer Lake Level: Stand->Sit: contact guard assist Assistive Device: Stand->Sit: 2 wheeled walker, other (see comments) (no AD) Skilled Rationale: Verbal cues, Tactile cues, Positioning, Sequencing, Hand placement, Controlled descent for sitting, Technique of activity, Initiation and execution of task, Cues for increased safety Skilled Intervention/Details: Stand->Sit: Performed 1x to BSC, 2x to EOB with CGA. Cues for positioning prior to controlled lowering to seated. Pt demonstrated fair eccentric control this date. Gait/Functional Mobility Assessment/Intervention: Gait Assessment Lake Level: Gait: other (see comments) (CGA - SBA) Assistive Device: Gait: 2 wheeled walker Ambulation Distance (Feet): 250 Gait Deviations Identified: ataxic, path deviation, narrow base of support Gait Skilled Rationale: verbal, tactile, safety to avoid obstacles Skilled Intervention/Details - Gait: Pt ambulated 250ft with 2WW and assist fluctuating from CGA - SBA. Cues for AD management and navigation. Pt with significantly improved gait quality this date however, continues to demonstrate mildly decreased safety awareness with 2 episodes of running into objects while in hallway. Outcome Score(s): CURRENT AM-PAC Basic Mobility Inpatient Short Form Turning over in bed: 3 - A Little Assistance Moving from lying on back to sittin - A Little Assistance Moving to and from bed to chair: 3 - A Little Assistance Sitting/standing from chair: 3 - A Little Assistance Walk in hospital room: 3 - A Little Assistance Climbing 3-5 steps with a railin - A Little Assistance CURRENT [facility] Mobility Raw Score: 18 CURRENT [facility] Mobility Functional Limitation: 46.58% Impaired in Basic Mobility Assessment & Plan: Pt demonstrated good progress toward established PT POC this date evidenced by significantly improved gait quality and distance. However, pt continues to demonstrate difficulty with navigation and proprioceptive awareness during mobility continuing to require increased cues for safety. Pt would continue to benefit from skilled PT sessions to progress overall functional mobility to optimize safe discharge. Patient Instruction/Education this session: Learners: Patient Education provided: Activity outside of therapy, Plan of care, Role of this discipline, Safety, Gait training safety, Functional transfers, Fall precautions Stroke education: Role of rehabilitation discipline, Other (see comment) (discharge recommendations) Plan for next session: progress gait quality/distance with no AD Acute PT Goals Plan of Care by Goldie Pan PT at 07/30/2024 10:53 AM Version 1 of 1 Problem: PT - General Goals Goal: Supine <-> Sit Transfers - Patient will perform supine to/from sit transfers with modified independence and without use of hospital bed features in order to improve functional mobility and safety. Outcome: Progressing Goal: Sit <-> Stand Transfers - Patient will perform sit to/from stand transfers with modified independence and least restrictive device in order to improve functional mobility and safety. Outcome: Progressing Goal: Standing Endurance/Balance - Patient will perform standing balance tasks for 10 min with supervision and least restrictive device while maintaining an RPE of less than 4/10 to improve endurance and safety with standing tasks. Outcome: Progressing Goal: Ambulation - Patient will ambulate 250 feet with supervision and least restrictive device to improve ability to safely navigate home and community. Outcome: Progressing PT treatment consisted of the following to progress towards the above goal(s): PT Evaluation and Treatment Time Therapeutic Activity Time Entry: 4 Gait Training Time Entry: 10 Treating Therapist: Goldie Pan PT Additional Details: PT Co-Eval/Treatment Information Co-evaluation/co-treatment performed?: Yes, simultaneous billable skilled care was necessary due to medical complexity and functional deficits Other discipline: OT Rationale for need to co-eval/treat: cognitive issues, coordination issues, postural control Co-treatment goal focus: balance, mobility, transfer, endurance, strength, coordination Assisted by during session: Paula OT PPE used during patient interaction: gloves Patient location at end of session: chair Alarms on at end of session: RN aware Needs in reach. Time In: 1053 Time Out: 1112 Total Visit Time: 19 minutes Total Treatment Time (skilled, billable minutes): 14 minutes Upon discontinuation of Acute Care Physical Therapy Services or patient discharge from the hospital this note represents the current Physical Therapy Discharge Summary. Transportation scheduled for 1pm with Tao Brody Asiya Care Management Supervisor Purification [facility] received a call from patient spouse regarding DC planning and wishes for patient to discharge home with [facility]. Spouse stated patient would not be agreeable to any facility and wishes to DC [facility]. Patient accepted Home Health services [facility] Transportation Set for 1pm. Phone call to make Spouse aware, no answer. Will make patient aware. Will continue to follow. Sw met with pt during rounding. Sw updated pt that the [facility] she chose does not have any beds. Sw offered to make referrals in [place]. Pt declined, stating that if she cannot dc to the I[facility] of choice, she prefers to return home. (SW canceled started AIDIN referral) CM notified to request HHC. Transport will need to be arranged. REBECA Kaplan, FURNACE OPERATOR AND TENDER Human Resources Project Manager [facility] Aidin referrals were made to [facility] and [facility] per Mr. Veloz's request. Once he has spoken to the physician he will decide which discharge services would be best for his . MAXWELL Torres, RN Clinical Systems Qa Analyst Physical Therapy Attempt Note 07/29/2024 PT Therapy Completed: Attempted Attempted Reason: Patient is unavailable due to test/procedure (RN asked to hold due to cEEG) Brandon Goodwin PT Time In: 1330 Time Out: 1330 Total Visit Time: 0 minutes Total Treatment Time (skilled, billable minutes): 0 minutes NEUROLOGY IN-PATIENT FOLLOW-UP NOTE Reason for consultation: possible Sz like activity. Poonam Veloz is a 83 y.o. female with history of L MCA inferior division ischemic stroke, HTN, HLD, who presents as a transfer from [facility] for AMS and poss seizure activity after initially presenting from speech therapy for possible stroke. INTERVAL HISTORY: States she feels better today. Reports hasn't had another abnormal RUE movements. PHYSICAL EXAM Temp: [97.2 F (36.2 C)-98.7 F (37.1 C)] 98.3 F (36.8 C) Pulse (Heart Rate): [73-95] 95 Resp Rate: [16-21] 19 BP: (108-168)/(59-74) 124/68 O2 Sat (%): [95 %-100 %] 96 % Body mass index is 26.41 kg/m . General: Laying comfortably in bed; in no acute distress. NEUROLOGICAL EXAMINATION MENTAL STATUS: awake and alert; oriented to person, place (with options), year, and month; good attention. Normal mood and affect. Normal insight into condition. LANGUAGE/SPEECH: fluent; comprehension intact; CRANIAL NERVES CN II: PERRL. supervisor veneer III, IV and : extraocular movements intact. No nystagmus. CN V: Facial sensation is intact to light touch. CN VII: Facial strength normal with symmetric movement. CN VIII: Hearing is grossly intact. CN IX and X: Soft palate elevates symmetrically in the midline CN XI: Shoulder shrug and sternocleidomastoid strength (R/L) 5/5 CN XII: Tongue is midline with normal movement; no fasciculations. MOTOR: Spont moves all 4 extremities. Can antigravity all 4s. Laboratory data: Imaging/diagnostic procedures: LTM 07/28-07/29 0800: Neg for seizures. ASSESSMENT/PLAN Impression: This is a 83 y.o. female with history of L MCA inferior division ischemic stroke, HTN, HLD, who presents as a transfer from [facility] for AMS and poss seizure activity after initially presenting from speech therapy for possible stroke. Patient appears to be doing better today. Due to stroke likely being the seizure nidus and description of the seizure like event, would keep patient on Keppra. Currently there is no evidence that patient is having any additional seizures at this time. Therefore patient seizures can be further managed OP. Recommendations: - Referral to Neurology clinic in 2-3 months in resident clinic. - I placed Dc EEG orders. - Neurology has no further IP recommendations at this time and will sign off. Thank you for the consultation. If you have any further questions, please contact the neurology consultation resident. Benji Worrell MD [facility] Department of Neurology Patient seen and staffed with Dr. Brar Associated attestation - Lauren Brar MD - 07/29/2024 11:46 PM EDT Neurology Attending Note: I have seen and examined/evaluated the patient today on 07/29/24. I agree with the history, examination, and medical decision making as noted by the resident and discussed the case with the resident. I have personally reviewed all available clinical data related to today's encounter. 83 y.o. woman with a history of L MCA stroke here with seizure. Obtained cEEG as she was not at her neurologic baseline. No interval seizures observed. Exam continues to improve. Would continue Keppra 500mg BID with neuro follow-up. Lauren Brar MD Police Aide, Neurology [facility] Medicine Progress Note Patient: Poonam Veloz, : 1940, Impression / Plan 83 year old female with pmh mood disorder, htn, hld, and L mca stroke admitted on 07/27 for acute confusion and concern for stroke. 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 CT Head w L subacute MCA infarct. MRI Brain w chronic L MCA infarct. TTE w normal ef, rvsp 32. cEEG abnormal w L hemispheric slowing indicative of structural disease. Neuro recs keppra 500mg bid. PT/OT. No swallowing difficulty. History Stroke: ASA HTN: Hydrochlorothiazide 12.5mg daily, losartan 50mg daily HLD: LDL 95, trig 87. 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 Normocytic Anemia: Hg 11.1. Mood Disorder: Sertraline Complexity Hypokalemia - Continue to monitor and replete. DVT prophylaxis with lovenox Anticipated Disposition: pt/ot Code status is Full Code Interval History / Subjective Patient laying in bed with eeg on. Objective Temp: [97.2 F (36.2 C)-98.7 F (37.1 C)] 98.4 F (36.9 C) Pulse (Heart Rate): [83-92] 89 Resp Rate: [16-21] 18 BP: (108-168)/(57-74) 108/62 O2 Sat (%): [95 %-100 %] 97 % Physical Exam Gen: A, A, NAD ENT: MMM Resp: CTA bilat, normal effort Cardio: RRR, normal S1, S2, No JAI GI: S/NT/ND, NABS Psych: Ox3, appropriate affect and cognition Data Review WBC/Hgb/Hct/Plts: 8.38/11.0/34.8/318 (07/29 45) Na/K+/Phos/Mg/Ca: 137/3.4/--/--/-- (07/29 45) Bun/Creat/Cl/CO2/Glucose: 12/0.64/105/23/106 (07/29 45) Long-Term EEG Daily EEG Report: Study Start Time: 07/28/24: 17:43 Review Start Time: 07/28/24: 17:43 Review End Time: 07/29/24: 14:04 History: 83F with 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 Following her stroke, she had residual speech deficits. She was at her speech therapy appointment on 07/27 when she was noted to have difficulty using her right hand prompting presentation to [facility] as a code stroke. There, symptoms were improving so she was a no go for thrombolytics. While undergoing MRI, she exhibited rhythmic jerking of the right hand and decline in mentation. Indication: To evaluate for possible seizures. Technical Description: This is a 21-channel digital EEG recording with time-locked video and single-channel electrocardiogram. Electrodes are placed according to the 10 to 20 International System. The patient was monitored continuously by EEG technicians with EEG reviewed intermittently and annotations made to the EEG record every two hours. Portions of this record are reviewed using bandpass filters of 1 to 70 Hz and sensitivity of 7mV/mm. EEG Findings Background: There is an asymmetric background recorded from the onset of the study. The background is recorded best over the right hemisphere where there is a 10Hz medium to low amplitude PDR. The anterior background is alpha mixed with some theta as well as faster frequencies. Over the left hemisphere there a more intermittent 8-9Hz PDR. The anterior activity is more continuous 7-8Hz theta mixed with faster frequencies. Sleep and wake differentiation is recorded and NREM sleep is recorded. Stage II sleep with symmetric VSTs and sleep spindles. Focal Asymmetry: yes, continuous left hemispheric slwoing Reactivity: reactive to voice Rhythmic or Periodic Patterns: no Sporadic ED's: no Brief Rhythmic Discharges: no Electrographic seizure: no Hyperventilation: no Photic stimulation: no Other Clinical Events: none Impression: This is an abnormal EEG due to the presence of continuous left hemispheric slowing indicative of an underlying structural or physiologic abnormality in this region. No clinical events or electrographic seizures recorded, clinical correlation recommended. Matty Kaminski MD Police Aide, Department of Neurology, Epilepsy Section [facility] Acute Care POULTRY RAISER Speech/Language/Cognitive and Swallow Evaluations Diet recommendation: Recommended Method of Nutrition: PO Recommended Diet Grade: regular Recommended Liquid Consistency: liquid- thin (IDDSI 0) Recommended Medication Administration (as appropriate per MD): Per patient preference Type of Cues/Supervision: none Assistance: independent, speech, family, nurse/aide Best mode of Communication: spoken language Communication Strategies: extended time Discharge Recommendations: Based on the below outcome measures/assessment score(s), MOCA, , and POULTRY RAISER clinical judgment, discharge destination recommendation is: Home with Outpatient Rehab Services Supporting factors for discharge setting: Impaired cognitive skills limiting independence Chart review and discussion w/RN complete prior to POULTRY RAISER services. Acute POULTRY RAISER Outcomes Tracking Communicate basic wants and needs?: yes Demo insight/appreciation of deficits?: yes Complete basic problem solving?: yes Current therapy frequency recommendation in acute: Speech/Lang/Cog Therapy Frequency: 3 times a week Swallow Therapy Frequency: no therapy warranted Referrals: Speech Language Pathologist Clinical Swallow Impression: Poonam Veloz presents with presents with presumed adequate oropharyngeal swallow function as pt demonstrated timely and complete oral clearance without overt clinical signs/symptoms of aspiration across all consistencies tested at bedside. Patient reports reduced PO intake secondary to limited preferences with food options. Patient participated in PO trials of regular solids (IDDSI 7) and thin liquids (IDDSI 0) in the form of deanne crackers and water without difficulty or reports of observed changes in function. Recommend regular with thin liquids. POULTRY RAISER will sign off. Clinical Speech/Language/Cognitive Impression: Poonam Veloz presents with cognitive- linguistic deficits secondary to possible CVA. Due to limited patient participation and frustration with task demands, comprehensive assessment of cognitive - communication skills not completed. Characteristics observed during partial assessment and conversation include deficits in word- finding, visuospatial limitations, decreased short - term memory, and tangential conversation. Patient was observed to become distraught at difficulties highlighted with attempts at naming pictures and word- finding during conversation. She states that deficits have significantly worsened during current hospitalization. Patient appeared to follow- along with conversation, indication functional auditory comprehension, and was able to answer yes/no questions without difficulty. Patient agreeable to POULTRY RAISER follow- up for ongoing evaluation and strategies for cognitive -communication limitations. Recommend POULTRY RAISER establish communication baseline and appropriate targets for therapy. Recommend strategies provided to initiate use of communication strategies and reduce frustration and increase positive coping during acute hospital stay. Patient Education/Instruction Learners: Patient Education provided: Role of this discipline, Dysphagia recommendations/impressions Teaching method: Verbal Education/Instruction Learner response: No evidence of learning Learning preferences: Auditory Learning considerations: Speech expression, Speech comprehension Patient Instruction/Education comments: Patient educated on role of POULTRY RAISER and BSE rationale Plan for next session: Plan to discharge from dysphagia POULTRY RAISER services. Plan to follow up for ongoing cognitvie evaluation and to provide communication strtaegies and resources Subjective information: Patient recieved sleeping comfortably and easily arouse. Patient pleasant toward clincian but hesitant to particpate in assessments. Pt agreeable to PO trials following explanation of POULTRY RAISER role and later explained decreased PO intake due to limited food prefrences available. Pt provided with additional options and accepted richa galilea and ice cream at end of session. Pain: General Pain Documentation (Adult, OB, Peds) Presence of Pain: assumed presence of pain Presence of Pain Score (Auto-calculated): 0 Comfort/Acceptable General Pain Level/Goal: 0 DVPRS (Defense and Veterans Pain Rating Scale) DVPRS: Rest: 0- no pain DVPRS: Activity: 0- no pain Precautions: Patient Safety Communication Prior to Visit: Nursing Lines/Tubes/Drains (Rehab Status): Telemetry (jaleesa) Patient History Comments: Poonam Veloz is a 83 y.o. female who presents with past medical history of right hand dominance, HTN, primary stroke February 2024, and HLD Prior Level of Function: Home Setting Residence: House Lives With: spouse Patient receives help from : none First floor setup: bedroom, walk-in shower Number of stairs to enter home: 0 Number of stairs in home: 0 Mobility Equipment Available: none used ADL Equipment Available: none Home Environment Details: questionable historian. pt reported she was driving and completing ADLs/IADLs IND Residence: House Lives With: spouse IADL History IADLs: independent Primary Language: Gabonese Prior POULTRY RAISER history: Patient was receiving ongoing outpatient speech therapy and presented from speech therapy session for possible CVA this hospitalization. Per patient, word- finding was targeted in speech therapy but has become significantly worse during this acute event. Further POULTRY RAISER history details unavailable via chart review. Current Method of Nutrition: Route of Nutrition: PO Diet Grade: Regular Solids (IDDSI 7) Liquid Consistency: Thin (IDDSI 0) Respiratory Status: O2 Device: room air O2 Sat (%): 95 % Resp Rate: 18 Clinical Swallow Evaluation Clinical Swallow Exam limited by cognition: No Objective Evaluation: Oral Motor: Cranial Nerve Exam CN V (Trigeminal) normal blink CN VII (Facial) strong bilateral movement of upper and lower face CN IX (Glossopharyngeal) uvula is midline, voice quality strong and clear CN X (Vagus) uvula is midline CN XI (Accessory) raises head off pillow without difficulty CN XII (Hypoglossal) clearly articulated speech, no abnormal tongue movements Vocal Quality: WDL GRBAS: A perceptual rating scale for voice parameters Rating scale of 0 to 3 0 = no impairment 1 = minimal to mild impairment 2 = moderate impairment 3 = severe impairment Positioning: High Crowley's (60-90 degrees) Anticipatory Phase: Intact Foods and Liquids Trialed: Modality: Amount: Regular solid POULTRY RAISER-fed 2 cracker pieces Thin Cup 8x Oral Phase Function Comments Oral Mucosa Intact Dentition Labial Closure Intact Mastication Intact Oral Stasis Absent Cough before the swallow Absent Oral Phase Summary: appears intact Pharyngeal Phase Function Comments Perceived Swallow Present Cough Response No Throat Clear No Subjective Complaint of Residue Absent Pharyngeal Phase Summary: no overt signs/symptoms of penetration/aspiration [place] Swallow Screen: (administered by: CAROLYN) [place] Swallow Screening Screening Exclusion Criteria: none, continue with [place] Swallow Screening Cognitive Screen: Orientation: able to give name, able to name place, able to name current year Cognitive Screen: Command Following: able to open mouth, able to stick out tongue, able to smile Oral Motor Function : able to close lips, able to move tongue to corners of lips, able to stick out tongue past lips, able to pucker lips and smile 3 oz. Water Swallow Challenge : no deficit-passed [place] Swallow Screening Result: passed=cleared for oral intake Voice and Swallow Outcomes: Functional Oral Intake Scale: Level 7 - Total oral intake with no restrictions Speech/Language/Cognitive Evaluation EXPRESSIVE LANGUAGE: Impaired Task: Imitates Gestures Automatic Speech Phrase Completion Confrontation Naming Impaired Answering 'wh' Questions Repetition Impaired Verbalize Basic Wants and Needs Functional Functional Participation in Conversation Impaired Expressive Language Characteristics: Non-Fluent, Anomia, Phonemic Paraphasia, Circumlocution, Perseveration, Effortful/Halting Speech, and Oral Groping RECEPTIVE LANGUAGE: Functional Task: Identify Functional Objects Follow 1-Step Commands Follow 2+ Step Commands Answers Basic Y/N Questions Intact Answers Complex Y/N Questions Conversational Comprehension VOCAL PARAMETERS: Task: Breath Support Coordination of Respiration and Phonation Duration of Phonation Pitch Control Loudness Vocal Quality WDL POULTRY RAISER Outcomes: The [place] Cognitive Assessment (MOCA), Version 8.1 was partially administered to achieve a standardized score of cognitive-linguistic function. The following scores were obtained: Due to patient participation, MOCA was not completed in full this date. Subtest scores: /5 Namin/3 Attention: /6 Language: / Delayed Recall: 0 / Acute POULTRY RAISER Goals Plan of Care by CIARA Morgan at 07/28/2024 4:07 PM Version 1 of 1 Problem: Dysphagia Goal: Ongoing Assessment - Patient will participate in assessment by accepting various PO consistency trials with appropriate participation/oral acceptance and no significant respiratory complications to determine need for dysphagia services Outcome: Met Problem: POULTRY RAISER - Cognition Goal: Memory: Hospital Facts - Patient will utilize preferred compensatory memory strategies with moderate cues to teach back at least 2 facts related to their hospitalization/plan of care across a 3 min delay to support generalization of strategy use Outcome: Progressing Problem: POULTRY RAISER - Language Goal: Name Basic Objects/Pictures - Patient will name basic objects/pictures with 80% accuracy, with maximum cues in order to improve word-finding and functional communication Outcome: Progressing Speech Language Pathologist: CIARA Morgan Time In: 1500 Time Out: 1520 Total Visit Time: 20 minutes Total Treatment Time (skilled, billable minutes): 20 minutes Non-billable assistance during session: n/a Assisted by during session: n/a PPE used during patient interaction: facemask, gloves Patient location/status at end of session: bed with head of bed elevated Patient location/status at end of session: bed with head of bed elevated Needs in reach. POULTRY RAISER Evaluation and Treatment Time Speech Eval - Sound Production W/Lang Comp and Exp 97330: 10 Swallowing Eval 70167: 10 Upon discontinuation of Acute Care Speech Therapy Services or patient discharge from the hospital this note represents the current Speech Therapy Discharge Summary [facility] Medicine Progress Note Patient: Poonam Veloz, : 1940, Impression / Plan 83 year old female with pmh mood disorder, htn, hld, and L mca stroke admitted on 07/27 for acute confusion and concern for stroke. Acute Encephalopathy: Improved, no acute neuro deficits. Able to answer questions appropriately. CT Head w L subacute MCA infarct. MRI Brain w chronic L MCA infarct. TTE pending. Neurovascular consult. PT/OT. No swallowing difficulty. History Stroke: ASA HTN: Hydrochlorothiazide 12.5mg daily, losartan 50mg daily HLD: LDL 95, trig 87. 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 Normocytic Anemia: Hg 11.1. Mood Disorder: Sertraline Complexity DVT prophylaxis with lovenox Anticipated Disposition: pt/ot Code status is Full Code Interval History / Subjective Patient sitting on side of bed and able to answer questions appropriately. Objective Temp: [97.8 F (36.6 C)-99.3 F (37.4 C)] 98.4 F (36.9 C) Pulse (Heart Rate): [83-93] 91 Resp Rate: [13-18] 18 BP: (104-177)/(60-79) 135/60 O2 Sat (%): [96 %] 96 % Weight: [63.4 kg (139 lb 12.4 oz)-63.4 kg (139 lb 12.8 oz)] 63.4 kg (139 lb 12.4 oz) Physical Exam Gen: A, A, NAD ENT: MMM Resp: CTA bilat, normal effort Cardio: RRR, normal S1, S2, No JAI GI: S/NT/ND, NABS Psych: Ox3, appropriate affect and cognition Data Review WBC/Hgb/Hct/Plts: 9.92/11.1/33.8/318 (07/28 16) Na/K+/Phos/Mg/Ca: 137/4.3/3.2/2.1/9.2 (07/286) Bun/Creat/Cl/CO2/Glucose: 15/0.70/104/24/104 (07/28 16) Acute Occupational Therapy Evaluation Prior Gross Functional Mobility: independent Current AM-PAC score(s): CURRENT AM-PAC Activity Raw Score: 14 Based on the above AM-PAC score(s) and OT clinical judgment, discharge destination recommendation is: Inpatient Rehab Facility Supporting Factors (would benefit from skilled therapy services): Decreased strength, Impaired functional status, Patient status is anticipated to be appropriate to tolerate inpatient rehab therapy requirements at time of discharge from acute care, Impaired balance, Decreased endurance, Impaired self-care abilities, Assistance needed with functional mobility, Impaired cognitive status, Recent decline in functional mobility, Fall risk, Recent decline in self-care abilities, Recent decline in cognitive function Mobility equipment available at home: none used ADL equipment available at home: none Equipment recommendations for discharge: to be determined Current therapy frequency recommendation(s) in acute: 6 times a week Activity Recommendations for outside of rehab session: BSC with FWW and 2 person assist Precautions and Weightbearing Status: OT Existing Precautions/Restrictions: fall, NPO (seizure pads in place) Telemetry (versette) Patient Safety Communication Prior to Visit: Nursing Subjective: I usually do. Pain: General Pain Documentation (Adult, OB, Peds) Presence of Pain: denies pain/discomfort Presence of Pain Score (Auto-calculated): 0 Home Setting Residence: House Lives With: spouse Patient receives help from : none First floor setup: bedroom, walk-in shower Number of stairs to enter home: 0 Number of stairs in home: 0 Mobility Equipment Available: none used ADL Equipment Available: none Home Environment Details: questionable historian. pt reported she was driving and completing ADLs/IADLs IND Previous Level of Function Gross Functional Mobility: independent Assistive Device: none used Prior level ADL Overview: Independent with all ADLs Dominant Hand: Right Bed Mobility: independent Transfers: independent Ambulation: independent with all needs IADL History IADLs: independent Primary Language: Gabonese Objective/Observation: Vitals/Vitals Responses to Treatment: Pt experienced no adverse reactions to therapy. O2 Device: room air Vision Screen Currently wearing corrective lenses: No Speech Speech: word-finding difficulties (garbled speech) Hearing Hearing: no gross deficits noted Cognition Overall Cognitive Status: Impaired Arousal/Alertness: Appropriate responses to stimuli Orientation Level: Oriented to person, Oriented to place Following Commands: Follows one step commands with increased time, Follows one step commands with repetition Safety Judgment: Decreased awareness of need for safety, Decreased awareness of need for assistance Awareness of Errors: Assistance required to identify errors made, Assistance required to correct errors made, Decreased awareness of errors Deficits: Decreased awareness of deficits Attention Span: Attends with cues to redirect Memory: Decreased recall of recent events, Decreased short term memory Problem Solving: Assistance required to identify errors made, Assistance required to generate solutions, Assistance required to implement solutions Cognition Comments: pleasant and cooperative. pt demonstrated difficulty with sequencing following directions. pt required increased verbal and tactile cueing ADLs: ADL Assessment: UE Dressing Deficit, LE Dressing Deficit ADL Anticipated Performance (ADLs not directly observed this session): Eating, Bathing, Grooming, Toileting Eating Assistance: Stand by Grooming Assistance: Minimal Bathing Assistance: Maximal UE Dressing Assistance: Maximal UE Dressing Location: edge of bed UE Dressing Deficit: Activity tolerance, Increased time to complete, Generalized weakness, Balance, Thread RUE, Thread LUE, Pull up arm, Attention, Initiation, Sequencing, Problem solving UE Dressing Skilled Rationale (Verbal/Tactile/Visual/Demonstrati on): Technique of activity, Cues for increased safety, Facilitate postural control, Facilitate positioning UE Dressing Intervention/Details: pt donned new gown and required max cueing to sequence LE Dressing Assistance: Maximal LE Dressing Location: edge of bed LE Dressing Deficit: Increased time to complete, Activity tolerance, Generalized weakness, Balance, Thread RLE into underwear, Thread LLE into underwear, Pull up over hips, Attention, Initiation, Sequencing, Problem solving LE Dressing Skilled Rationale (Verbal/Tactile/Visual/Demonstrati on): Technique of activity, Cues for increased safety, Cues for cognitive deficit, Facilitate postural control, Facilitate positioning LE Dressing Intervention/Details: underwear placed in pt hand and cued to irwin. pt required max cueing and then required assist to irwin and stand to arrange. Toilet Assistance: Maximal Extremity Assessments: Hand Axle Turner Strength Right Axle Turner Strength (lbs): poor Left Axle Turner Strength (lbs): fair RUE Assessment RUE Assessment: AROM Impaired, Strength Impaired Right UE Assessment Details: grossly 3-/5 LUE Assessment LUE Assessment: AROM Impaired, Strength Impaired Left UE Assessment Details: grossly 3/5 Balance: Sitting Balance Static Sitting-Level of Assistance: Standby Dynamic Sitting-Level of Assistance: Contact guard Standing Balance Static Standing-Level of Assistance: Contact guard, 2-person assist Dynamic Standing-Level of Assistance: Minimum assistance, 2-person assist Standing-Balance Support: 2 wheeled walker Skilled Rationale: Positioning, Verbal cues, Full extension to upright positioning/posture, Finding/maintaining midline positioning, Upright gaze/neck extension, Technique of activity, Initiation and execution of task, Cues for increased safety Mobility Assessment: Supine to Sit Mobility Lake Level: Supine->Sit: minimum assist (75% patient effort) Bed Features/Set-up: Supine->Sit: Head of bed elevated, Use of bed rail Skilled Rationale: Verbal cues, Sequencing, Cues for increased safety, Technique of activity Skilled Intervention/Details: Supine->Sit: increased time, assist with trunk Sit to Supine Mobility Lake Level: Sit->Supine: minimum assist (75% patient effort) Bed Features/Set-up: Sit->Supine: Flat Skilled Rationale: Verbal cues, Sequencing, Cues for increased safety, Technique of activity Skilled Intervention/Details: Sit->Supine: assist BLE into supine Transfer Assessment: Sit to Stand Transfer Lake Level: Sit->Stand: minimum assist (75% patient effort) Physical Assist: Sit->Stand: 2 person assist Assistive Device: Sit->Stand: 2 wheeled walker Skilled Rationale: Verbal cues, Sequencing, Cues for increased safety, Technique of activity, Hand placement Stand to Sit Transfer Lake Level: Stand->Sit: minimum assist (75% patient effort) Physical Assist: Stand->Sit: 2 person assist Assistive Device: Stand->Sit: 2 wheeled walker Skilled Rationale: Verbal cues, Sequencing, Cues for increased safety, Technique of activity, Hand placement, Controlled descent for sitting Functional Mobility: Functional Mobility Lake Level: Functional Mobility/Gait: minimum assist (75% patient effort) Physical Assist: Functional Mobility/Gait: 2 person assist Assistive Device: Functional Mobility/Gait: 2 wheeled walker Functional Mobility Distance: Distance needed to access restroom Functional Mobility Deficits: Activity tolerance, Attention, Balance, Decreased step length, Follow safety/precautions, Generalized weakness, Problem solving, Sequencing, Slowed gait speed Functional Mobility Skilled Rationale: Cues for cognitive deficit, Cues for increased safety, Technique of activity, Walker management/safety, Visual scanning and environmental awareness, Verbal cues, Upright gaze/neck extension Skilled Intervention/Details - Functional Mobility/Gait: pt amb into hallway and back, unsteady gait throughout. pt required assist with walker management and cues to not run into obstacles. pt experienced LOB ~3 times. Outcome Score(s): CURRENT -[facility] Daily Activity Inpatient Short Form Putting on/Taking Off Lower Body Clothin - A Lot of Assistance Bathin - A Lot of Assistance Toiletin - A Lot of Assistance Putting on/Taking Off Upper Body Clothin - A Lot of Assistance Groomin - A Little Assistance Eatin - A Little Assistance CURRENT AM-[facility] Activity Raw Score: 14 CURRENT AM[facility] Activity Functional Limitation/Modifier: 59.67% Currently Impaired in Daily Activity - CK Interventions: Pt completed bed mobility and sat EOB. Versette not plugged into wall suction upon therapist entry. Pt soiled bed and required clean up. Pt stood to doff underwear, sat to irwin new underwear and stood to clean prior to pulling underwear around waist. Pt then amb in hallway and back and required max cueing for safety. Pt returned to EOB to irwin new gown before returning to supine. All therapeutic activity and ADL's were focused on increasing activity tolerance, strength, balance, and ind/safety with func mobility and tasks; pt educated on adaptive strategies and techniques where needed throughout therapy session to increase func ind and endurance. Assessment & Plan: Patient was admitted for altered mental status and possible seizure and seen for therapy evaluation related to ADL deficits, education, transfer training and discharge recommendations. Exam findings include impairments in: attention, balance, cognitive impairments, coordination, ROM, strength, transfers. These impairments contribute to occupational performance limitations including bathing, dressing, grooming, toileting, functional mobility, ADL transfers, community integration. pt is 83 y/o female who presented to the ED from her outpatient [facility] appointment due to RUE weakness. pt transferred from outside hospital to [facility]. CT and MRI negative for CVA but pt recently had a CVA in February 2024. per ED notes, pt spouse is currently undergoing chemotherapy and unable to visit. pt requires increased assistance at home and would benefit form continued OT services. The following factors impact the plan of care: Past Medical History: Diagnosis Date HLD (hyperlipidemia) HTN (hypertension) Stroke 02/2024 Left parietal area? No past surgical history on file. Patient will benefit from skilled occupational therapy to address these impairments, occupational performance limitations, and participation restrictions. Patient's rehab potential is: good. Planned Therapy Interventions (OT Eval): ADL retraining, balance training, bed mobility training, caregiver training/education, functional activity tolerance, ROM (range of motion), strengthening, transfer training, neuromuscular re-education Patient Instruction/Education this session: Learners: Patient Education provided: Activity outside of therapy, Balance training, Bed mobility, Discharge recommendations, Functional transfers Teaching method: Audiovisual, Verbal Education/Instruction Learner response: Needs review Learning preferences: Auditory, Kinesthetic, Reading/writing, Visual Learning considerations: Cognition Patient Instruction/Education comments: role of OT Plan for next session: toileting as able, [facility] Acute OT Goals Plan of Care by Harleen Parks OT at 07/28/2024 8:09 AM Version 1 of 1 Problem: OT - ADLs Goal: Grooming - Patient will complete grooming edge of bed with supervision for improved ability to safely complete ADLs. Outcome: Ongoing Problem: OT - Strength/ROM Goal: Neuro Re-education - Patient will participate in neuro re-ed of right upper extremity with supervision and 100% accuracy for improved functional use in ADLs. Outcome: Ongoing Goal: Fine Motor Coordination - Patient will participate in fine motor coordination functional task completing 07/12 reps with supervision for improved fine motor strength and coordination required to complete self-care tasks. Outcome: Ongoing Problem: OT - Transfers Goal: Transfers Toilet/ Bedside Commode - Patient will transfer to/from toilet/bedside commode with standby assistance for improved ability to safely complete ADLs. Outcome: Progressing Problem: OT - Cognition Goal: Cognition - Command Following - Patient will follow 100% of single commands during ADL task. Outcome: Progressing OT treatment consisted of the following to work and progress towards the above goal(s): OT Evaluation and Treatment Time OT Evaluation (Moderate) Time Entry: 10 Self Care/Home Management (ADLs) Time Entry: 10 Evaluating Therapist: DESTINEY Rose, OTR/L #[id number] Additional Details: OT Co-Eval/Treatment Information Co-evaluation/co-treatment performed?: Yes, simultaneous billable skilled care was necessary due to medical complexity and functional deficits Other discipline: PT Rationale for need to co-eval/treat: coordination issues, cognitive issues, postural control Co-treatment goal focus: balance, mobility, transfer, endurance, self-care, coordination, cognition, strength OT Evaluation Complexity Occupational Profile and Client History: Moderate - expanded history Assessment of Occupational Performance: Moderate (3-5 performance deficits) Clinical Decision/Performance Deficits: Moderate (detailed assessments w/several treatment options) Time In: 808 Time Out: 828 Total Visit Time: 20 minutes Total Treatment Time (skilled, billable minutes): 20 minutes Assisted by during session: NADJA Amezcua PPE used during patient interaction: gloves, facemask Patient location at end of session: bed with head of bed elevated Alarms on at end of session: bed alarm, RN aware Needs in reach. Upon discontinuation of Acute Care Occupational Therapy Services or patient discharge from the hospital this note represents the current Occupational Therapy Discharge Summary. Acute Physical Therapy Evaluation Prior Gross Functional Mobility: independent Current AM-PAC score(s): CURRENT AM-PAC Mobility Raw Score: 14 Based on the above AM-PAC score(s) and PT clinical judgment, patient is a good candidate for discharge to Inpatient Rehab Facility Supporting Factors (would benefit from skilled therapy services): Patient status is anticipated to be appropriate to tolerate inpatient rehab therapy requirements at time of discharge from acute care, Impaired functional status, Decreased strength, Impaired balance, Decreased endurance necessitating skilled therapy services, but able to tolerate therapy requirements for inpatient rehab, Impaired self-care abilities, Impaired cognitive status, Assistance needed with functional mobility, Fall risk, Recent decline in functional mobility, Recent decline in self-care abilities, Recent decline in cognitive function, Patient has appropriate assistance and setup at home for ultimate discharge to home once patient has progressed functionally following inpatient rehab Mobility equipment available at home: none used ADL equipment available at home: none Equipment needed for discharge: to be determined Current therapy frequency recommendation in acute: Therapy Frequency: 6 times a week Activity Recommendations for outside of rehab session: BSC with 2WW and 2 person assist Precautions and Weightbearing Status: Existing Precautions/Restrictions: fall, seizure Telemetry (versette) Patient Safety Communication Prior to Visit: Nursing, Rehab team Subjective: Pt reporting increased difficulty with movement on R side of body this date. Pain: General Pain Documentation (Adult, OB, Peds) Presence of Pain: denies pain/discomfort Presence of Pain Score (Auto-calculated): 0 Home Setting Residence: House Lives With: spouse Patient receives help from : none First floor setup: bedroom, walk-in shower Number of stairs to enter home: 0 Number of stairs in home: 0 Mobility Equipment Available: none used ADL Equipment Available: none Home Environment Details: questionable historian. pt reported she was driving and completing ADLs/IADLs IND Previous Level of Function Gross Functional Mobility: independent Assistive Device: none used Prior level ADL Overview: Independent with all ADLs Dominant Hand: Right Bed Mobility: independent Transfers: independent Ambulation: independent with all needs Objective/Observation: Vitals/Vitals Responses to Treatment: No vitals taken, no adverse response noted during PT session Past Medical History: Diagnosis Date HLD (hyperlipidemia) HTN (hypertension) Stroke 02/2024 Left parietal area? No past surgical history on file. O2 Device: room air Cognition Overall Cognitive Status: Impaired Arousal/Alertness: Appropriate responses to stimuli Orientation Level: Oriented to person, Oriented to place Following Commands: Follows one step commands with increased time, Follows one step commands with repetition Safety Judgment: Decreased awareness of need for assistance, Decreased awareness of need for safety Cognition Comments: pleasant and cooperative, difficulty with sequencing this date Extremity Assessments: RLE Assessment RLE Assessment: AROM WFL, Strength Impaired (poor coordination) Right LE Assessment Details: strength grossly 3+/5 throuhgout LLE Assessment LLE Assessment: Within Functional Limits Mobility Assessment: Supine to Sit Mobility Lake Level: Supine->Sit: minimum assist (75% patient effort) Bed Features/Set-up: Supine->Sit: Head of bed elevated, Use of bed rail Skilled Rationale: Verbal cues, Tactile cues, Positioning, Sequencing, Hand placement, Technique of activity, Initiation and execution of task, Cues for increased safety Skilled Intervention/Details: Supine->Sit: Pt Adan to assist with trunk righting. Sit to Supine Mobility Lake Level: Sit->Supine: minimum assist (75% patient effort) Bed Features/Set-up: Sit->Supine: Flat Skilled Rationale: Verbal cues, Tactile cues, Positioning, Sequencing, Hand placement, Technique of activity, Initiation and execution of task, Cues for increased safety Skilled Intervention/Details: Sit->Supine: Pt Adan to assist BLE into bed. Cues for initiation of transition. Balance: Sitting Balance Static Sitting-Level of Assistance: Standby Dynamic Sitting-Level of Assistance: Contact guard Standing Balance Static Standing-Level of Assistance: Contact guard, 2-person assist Dynamic Standing-Level of Assistance: Minimum assistance, 2-person assist Standing-Balance Support: 2 wheeled walker Transfer Assessment: Sit to Stand Transfer Lake Level: Sit->Stand: minimum assist (75% patient effort) Physical Assist: Sit->Stand: 2 person assist Assistive Device: Sit->Stand: 2 wheeled walker Skilled Rationale: Verbal cues, Tactile cues, Positioning, Sequencing, Hand placement, Technique of activity, Initiation and execution of task, Cues for increased safety Skilled Intervention/Details: Sit->Stand: Performed 1x from EOB with Adan x2. Stand to Sit Transfer Lake Level: Stand->Sit: minimum assist (75% patient effort) Physical Assist: Stand->Sit: 2 person assist Assistive Device: Stand->Sit: 2 wheeled walker Skilled Rationale: Verbal cues, Tactile cues, Positioning, Sequencing, Hand placement, Controlled descent for sitting, Technique of activity, Initiation and execution of task, Cues for increased safety Skilled Intervention/Details: Stand->Sit: Performed 1x to EOB with Adan x2. Cues for positioning prior to controlled lowering to seated. Pt demonstrated fair eccentric control this date. Gait/Functional Mobility: Gait Assessment Lake Level: Gait: minimum assist (75% patient effort) Physical Assist: Gait: 2 person assist Assistive Device: Gait: 2 wheeled walker Ambulation Distance (Feet): 60 Gait Deviations Identified: decreased estevan, decreased gait speed, decreased step length, decreased stride length, right, ataxic, scissoring, narrow base of support Gait Skilled Rationale: verbal, tactile, improve foot placement, safety to avoid obstacles, hand placement on assistive device Skilled Intervention/Details - Gait: Pt ambulated 60ft with increased difficulty with sequencing throughout entire RLE. Frequent cues for AD management (one episode of entire R side of walker coming off of the ground), and pacing. Pt with inconsistent foot placement on RLE with Adan x2 for unsteadiness and 2WW navigation. Pt frequently running into obstacles demonstrating difficulty with navigation and sequencing demonstrating significantly impaired proprioception of entire RLE. Outcome Score(s): CURRENT [facility] Basic Mobility Inpatient Short Form Turning over in bed: 3 - A Little Assistance Moving from lying on back to sittin - A Little Assistance Moving to and from bed to chair: 2 - A Lot of Assistance Sitting/standing from chair: 2 - A Lot of Assistance Walk in hospital room: 2 - A Lot of Assistance Climbing 3-5 steps with a railin - A Lot of Assistance CURRENT [facility] Mobility Raw Score: 14 CURRENT [facility] Mobility Functional Limitation: 61.29% Impaired in Basic Mobility Assessment & Plan: Patient was admitted for 83 year old female with pmh mood disorder, htn, hld, and L mca stroke admitted on 07/27 for acute confusion and concern for stroke and seen for therapy evaluation related to functional mobility assessment, education, and discharge recommendations. Exam findings include impairments in: Strength, Balance, Coordination, Posture, Transfers, Gait/Locomotion, Motor control. These impairments contribute to functional limitations including Decreased ambulation distance/endurance, Difficulty stair climbing/descent, Increased fall risk, Decreased functional mobility, Difficulty with transfers, Difficulty with bed mobility. Pt challenged with bed mobility, transfers, and gait with pt demonstrating significantly impaired mobility and proprioceptive awareness of R side of body. Pt would benefit from IPR following discharge to progress mobility to maximize independence as pt was able to drive yesterday and demonstrates mobility significantly different from baseline. Pt would continue to benefit from skilled PT sessions to progress overall functional mobility to optimize safe discharge. Current clinical presentation is Evolving - changing/inconsistent clinical characteristics (Moderate). Patient history factors impacting Plan Of Care include see pertinent PMH. Patient will benefit from skilled physical therapy to address these impairments, functional limitations, and participation restrictions and has good rehab potential to achieve therapy goals. Planned Therapy Interventions: balance training, bed mobility training, caregiver training/education, endurance, functional activity tolerance, gait training, motor coordination training, neuromuscular re-education, postural re-education, strengthening, transfer training Patient Instruction/Education this session: Learners: Patient Education provided: Activity outside of therapy, Bed mobility, Fall precautions, Functional transfers, Gait training safety, Plan of care, Role of this discipline, Safety, Neuromuscular re-education Teaching method: Verbal Education/Instruction Learner response: Needs review Learning preferences: (unknown) Learning considerations: Cognition Stroke education: Role of rehabilitation discipline Plan for next session: progress gait quality/distance Acute PT Goals Plan of Care by Goldie Pan PT at 07/28/2024 8:09 AM Version 1 of 1 Problem: PT - General Goals Goal: Supine <-> Sit Transfers - Patient will perform supine to/from sit transfers with modified independence and without use of hospital bed features in order to improve functional mobility and safety. Outcome: Ongoing Goal: Sit <-> Stand Transfers - Patient will perform sit to/from stand transfers with modified independence and least restrictive device in order to improve functional mobility and safety. Outcome: Ongoing Goal: Standing Endurance/Balance - Patient will perform standing balance tasks for 10 min with supervision and least restrictive device while maintaining an RPE of less than 4/10 to improve endurance and safety with standing tasks. Outcome: Ongoing Goal: Ambulation - Patient will ambulate 250 feet with supervision and least restrictive device to improve ability to safely navigate home and community. Outcome: Ongoing PT treatment consisted of the following to progress towards the above goal(s): PT Evaluation and Treatment Time PT Evaluation (Moderate) Time Entry: 10 Therapeutic Activity Time Entry: 4 Gait Training Time Entry: 5 Evaluating Therapist: Goldie Pan PT Additional Details: PT Co-Eval/Treatment Information Co-evaluation/co-treatment performed?: Yes, simultaneous billable skilled care was necessary due to medical complexity and functional deficits Other discipline: OT Rationale for need to co-eval/treat: cognitive issues, coordination issues, postural control Co-treatment goal focus: balance, mobility, transfer, endurance, strength Evaluation Complexity Components History: High (3 personal factors and/or comorbidities) Body Systems Review: High (Addressing a total of 4 or more elements) Clinical Presentation: Evolving - changing/inconsistent clinical characteristics (Moderate) Clinical Decision Making Complexity: Moderate Time In: 808 Time Out: 827 Total Visit Time: 19 minutes Total Treatment Time (skilled, billable minutes): 19 minutes Assisted by during session: Harleen WHITE PPE used during patient interaction: gloves Patient location at end of session: bed with head of bed elevated Alarms on at end of session: bed alarm, RN aware Needs in reach. Upon discontinuation of Acute Care Physical Therapy Services or patient discharge from the hospital this note represents the current Physical Therapy Discharge Summary. Department of Pharmacy Outside Facility Transfer Note Patient: Poonam Veloz Room/Bed: [facility] Patient has transferred from the Emergency Department at [facility] . I have contacted the facility and confirmed the following antimicrobial, antiepileptic, and anticoagulant medications were received by the patient prior to arrival at [facility]: Antimicrobials: none Antiepileptics: lorazepam 2 mg IV @ 1745 on 07/27 lorazepam 1 mg PO @ 1619 on 07/27 unclear if 3800 mg of keppra IV was given with transport Anticoagulants: none Please feel free to contact me with any further questions. Name: Dae Lynn RPH Phone #: [phone] Date/Time: 07/27/2024 8:38 PM documented in this encounter [facility] 07-30-2024 Nurse Note Assessment remains unchanged. Vitals are stable. Pt denies pain at this time. Will continue to monitor and assess. [facility] 07-30-2024 Nurse Note Report given to [facility]. [facility] 07-30-2024 Nurse Note 07/30/24 1129 Final Discharge Planning Discharge Disposition Home with Home Health Services at Discharge Physical Therapy;Occupational Therapy;Speech Therapy;Intermediate Community Agency Name(s) For Handoff Home Health Services [facility] Name For Handoff Intake Phone For Handoff [phone] p Fax For Handoff [phone] f [facility] 07-30-2024 Plan of care note Problem: OT - ADLs Goal: Grooming - Patient will complete grooming edge of bed with supervision for improved ability to safely complete ADLs. Outcome: Not Progressing Problem: OT - Strength/ROM Goal: Fine Motor Coordination - Patient will participate in fine motor coordination functional task completing 10/10 reps with supervision for improved fine motor strength and coordination required to complete self-care tasks. Outcome: Ongoing Problem: OT - Transfers Goal: Transfers Toilet/ Bedside Commode - Patient will transfer to/from toilet/bedside commode with standby assistance for improved ability to safely complete ADLs. Outcome: Progressing Problem: OT - Strength/ROM Goal: Neuro Re-education - Patient will participate in neuro re-ed of right upper extremity with supervision and 100% accuracy for improved functional use in ADLs. Outcome: Progressing Problem: OT - Cognition Goal: Cognition - Command Following - Patient will follow 100% of single commands during ADL task. Outcome: Progressing [facility] 07-30-2024 Plan of care note Problem: PT - General Goals Goal: Supine <-> Sit Transfers - Patient will perform supine to/from sit transfers with modified independence and without use of hospital bed features in order to improve functional mobility and safety. Outcome: Progressing Goal: Sit <-> Stand Transfers - Patient will perform sit to/from stand transfers with modified independence and least restrictive device in order to improve functional mobility and safety. Outcome: Progressing Goal: Standing Endurance/Balance - Patient will perform standing balance tasks for 10 min with supervision and least restrictive device while maintaining an RPE of less than 4/10 to improve endurance and safety with standing tasks. Outcome: Progressing Goal: Ambulation - Patient will ambulate 250 feet with supervision and least restrictive device to improve ability to safely navigate home and community. Outcome: Progressing [facility] 07-30-2024 Hospital course Narrative Discharge Summary Name: Poonam Veloz Age: 83 y.o. Birthday: 1940 Admit Date: 07/27/2024 8:28 PM Discharge Date: 07/30/24 Discharge Time: Discharge Unit: Admission Information Admitting Physician: Donn Denton DO Discharge Information Discharge Physician: dank Problem List Active Hospital Problems Diagnosis Stroke Normocytic anemia Essential hypertension Other hyperlipidemia Acute encephalopathy Resolved Hospital Problems No resolved problems to display. Brief Summary of Hospital Course for Discharge Summary: 83 year old female with pmh mood disorder, htn, hld, and L mca stroke admitted on 07/27 for acute confusion and concern for stroke. 1. 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 CT Head w L subacute MCA infarct. MRI Brain w chronic L MCA infarct. TTE w normal ef, rvsp 32. cEEG abnormal w L hemispheric slowing indicative of structural disease. Neuro recs keppra 500mg bid, outpatient neurology clinic. 2. History Stroke: ASA 3. HTN: Hydrochlorothiazide 12.5mg daily, losartan 50mg daily 4. HLD: LDL 95, trig 87. 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 5. Normocytic Anemia: Hg 11.1. 6. Mood Disorder: Sertraline Discharge home w home health per patient preference with follow up in neurology resident clinic in 2-3 months. Physical Exam Gen: A, A, NAD ENT: MMM Resp: CTA bilat, normal effort Cardio:RRR, normal S1, S2, No JAI GI: S/NT/ND, NABS Psych:Ox3, appropriate affect and cognition Brief Summary of Consults for Discharge Summary: Brief Summary of Procedures and Imaging for Discharge Summary: Summary of last selected lab results and date obtained: Lab Results Component Value Date WBC 7.34 07/30/2024 HGB 11.0 (L) 07/30/2024 HCT 34.4 (L) 07/30/2024 PLATELET 332 07/30/2024 MCV 83.9 07/30/2024 Lab Results Component Value Date SODIUM 137 07/30/2024 POTASSIUM 4.2 07/30/2024 CHLORIDE 107 07/30/2024 CO2 23 07/30/2024 BUN 13 07/30/2024 CREATSERUM 0.64 07/30/2024 GLUCOSE 98 07/30/2024 Lab Results Component Value Date ALT 10 07/28/2024 AST 25 07/28/2024 ALKPHOS 79 07/28/2024 BILITOTAL 0.4 07/28/2024 BILIDIRECT <0.1 07/28/2024 Brief Summary of Labs for Discharge Summary: Discharge Orders AMB REFERRAL TO NEUROLOGY Current Outpatient Meds: Medication List for when you go home START taking these medications Morning Afternoon Evening Bedtime As Needed levETIRAcetam 500 MG TABS Take 1 tablet by mouth every 12 hours. Commonly known as: KEPPRA Last time this was given: 500 mg on July 30, 2024 9:00 AM CONTINUE taking these medications Morning Afternoon Evening Bedtime As Needed aspirin 81 MG CHEW chewable tablet Chew 1 tablet daily. Last time this was given: 81 mg on July 30, 2024 9:00 AM CoQ-10 100 MG CAPS Take 1 capsule by mouth daily. Instructed by PCP to take to help with statin tolerance. hydroCHLOROthiazide 12.5 MG CAPS Take 1 capsule by mouth daily. Commonly known as: MICROZIDE Last time this was given: 12.5 mg on July 30, 2024 9:00 AM Losartan 50 MG TABS Take 1 tablet by mouth daily. Commonly known as: COZAAR Last time this was given: 50 mg on July 30, 2024 9:00 AM Pitavastatin Calcium 1 MG TABS Take 1 tablet by mouth every 3 days. Sertraline 100 MG TABS Take 1 tablet by mouth daily. Commonly known as: ZOLOFT Last time this was given: 100 mg on July 30, 2024 9:01 AM Follow-up: No follow-up provider specified. Discharge work 35 minutes documented in this encounter [facility] 07-30-2024 Hospital Discharge instructions Hanny Valentino RN - 07/30/2024 8:18 AM EDT Patient Experience Survey Reminder You may receive a survey in the mail within a few weeks regarding your hospitalization. This helps us to improve the care and services we provide at [facility]. We truly appreciate you taking the time to fill this out. We particularly welcome any specific comments you may have (good or bad!) regarding your experience at [facility] so that we may use them to continue to strive towards excellence for our patients. documented in this encounter [facility] 07-30-2024 Plan of care note Problem: Stroke, Ischemic (Includes Transient Ischemic Attack) Goal: Optimal Coping Outcome: Progressing Goal: Effective Bowel Elimination Outcome: Progressing Goal: Optimal Cerebral Tissue Perfusion Outcome: Progressing Goal: Optimal Cognitive Function Outcome: Progressing Goal: Improved Communication Skills Outcome: Progressing Goal: Optimal Functional Ability Outcome: Progressing Goal: Optimal Nutrition Intake Outcome: Progressing Goal: Effective Oxygenation and Ventilation Outcome: Progressing Goal: Improved Sensorimotor Function Outcome: Progressing Goal: Safe and Effective Swallow Outcome: Progressing Goal: Effective Urinary Elimination Outcome: Progressing [facility] 07-30-2024 Nurse Note Pt resting quietly in bed with call light in reach and bed exit armed. Assessment unchanged since previous assessment except as documented. No s/s of distress noted, pt denies any other needs at this time. Room/Environment checked for safety. [facility] 07-30-2024 Nurse Note Pt resting quietly in bed with call light in reach and bed exit armed. Assessment unchanged since previous assessment except as documented. No s/s of distress noted, pt denies any other needs at this time. Room/Environment checked for safety. [facility] 07-29-2024 Procedure note Associated Ord er(s): GENERAL PROCEDURE Long-Term EEG Procedure Report: Study Start Time: 07/28/24: 17:43 Study End Time: 07/29/24: 14:04 History: 83F with 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 Following her stroke, she had residual speech deficits. She was at her speech therapy appointment on 07/27 when she was noted to have difficulty using her right hand prompting presentation to [facility] as a code stroke. There, symptoms were improving so she was a no go for thrombolytics. While undergoing MRI, she exhibited rhythmic jerking of the right hand and decline in mentation. Indication: To evaluate for possible seizures. Technical Description: This is a 21-channel digital EEG recording with time-locked video and single-channel electrocardiogram. Electrodes are placed according to the 10 to 20 International System. The patient was monitored continuously by EEG technicians with EEG reviewed intermittently and annotations made to the EEG record every two hours. Portions of this record are reviewed using bandpass filters of 1 to 70 Hz and sensitivity of 7mV/mm. EEG Findings Background: There is an asymmetric background recorded from the onset of the study. The background is recorded best over the right hemisphere where there is a 10Hz medium to low amplitude PDR. The anterior background is alpha mixed with some theta as well as faster frequencies. Over the left hemisphere there a more intermittent 8-9Hz PDR. The anterior activity is more continuous 7-8Hz theta mixed with faster frequencies. Sleep and wake differentiation is recorded and NREM sleep is recorded. Stage II sleep with symmetric VSTs and sleep spindles. Focal Asymmetry: yes, continuous left hemispheric slwoing Reactivity: reactive to voice Rhythmic or Periodic Patterns: no Sporadic ED's: no Brief Rhythmic Discharges: no Electrographic seizure: no Hyperventilation: no Photic stimulation: no Other Clinical Events: none Impression: This is an abnormal 1 Day VideoEEG due to the presence of continuous left hemispheric slowing indicative of an underlying structural or physiologic abnormality in this region. No clinical events or electrographic seizures recorded, clinical correlation recommended. Matty Kaminski MD Police Aide, Department of Neurology, Epilepsy Section [facility] 07-[facility] Procedure note Associated Ord er(s): GENERAL PROCEDURE Long-Term EEG Procedure Report: Study Start Time: 07/28/24: 17:43 Study End Time: 07/29/24: 14:04 History: 83F with 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 Following her stroke, she had residual speech deficits. She was at her speech therapy appointment on 07/27 when she was noted to have difficulty using her right hand prompting presentation to [facility] ER as a code stroke. There, symptoms were improving so she was a no go for thrombolytics. While undergoing MRI, she exhibited rhythmic jerking of the right hand and decline in mentation. Indication: To evaluate for possible seizures. Technical Description: This is a 21-channel digital EEG recording with time-locked video and single-channel electrocardiogram. Electrodes are placed according to the 10 to 20 International System. The patient was monitored continuously by EEG technicians with EEG reviewed intermittently and annotations made to the EEG record every two hours. Portions of this record are reviewed using bandpass filters of 1 to 70 Hz and sensitivity of 7mV/mm. EEG Findings Background: There is an asymmetric background recorded from the onset of the study. The background is recorded best over the right hemisphere where there is a 10Hz medium to low amplitude PDR. The anterior background is alpha mixed with some theta as well as faster frequencies. Over the left hemisphere there a more intermittent 8-9Hz PDR. The anterior activity is more continuous 7-8Hz theta mixed with faster frequencies. Sleep and wake differentiation is recorded and NREM sleep is recorded. Stage II sleep with symmetric VSTs and sleep spindles. Focal Asymmetry: yes, continuous left hemispheric slwoing Reactivity: reactive to voice Rhythmic or Periodic Patterns: no Sporadic ED's: no Brief Rhythmic Discharges: no Electrographic seizure: no Hyperventilation: no Photic stimulation: no Other Clinical Events: none Impression: This is an abnormal 1 Day VideoEEG due to the presence of continuous left hemispheric slowing indicative of an underlying structural or physiologic abnormality in this region. No clinical events or electrographic seizures recorded, clinical correlation recommended. Matty Kaminski MD Police Aide, Department of Neurology, Epilepsy Section [facility] documented in this encounter [facility] 07-29-2024 Nurse Note Reassessment done. Denies pain or discomfort. Patient is off the EEG. Call light is within reach. [facility] 07-29-2024 Nurse Note 07/29/24 1440 Transportation Needs In the past 12 months, has lack of transportation kept you from medical appointments or from getting medications? no In the past 12 months, has lack of transportation kept you from meetings, work, or from getting things needed for daily living? No Food Insecurity Within the past 12 months, you worried that your food would run out before you got the money to buy more. Never true Within the past 12 months, the food you bought just didn't last and you didn't have money to get more. Never true Housing Stability In the last 12 months, was there a time when you were not able to pay the mortgage or rent on time? N In the past 12 months, how many times have you moved where you were living? 0 At any time in the past 12 months, were you homeless or living in a skilled nursing (including now)? N Utilities In the past 12 months has the electric, gas, oil, or water [employer] threatened to shut off services in your home? No Intimate Partner Violence Within the last year, have you been afraid of your partner or ex-partner? Pt Unable Within the last year, have you been humiliated or emotionally abused in other ways by your partner or ex-partner? Pt Unable Within the last year, have you been kicked, hit, slapped, or otherwise physically hurt by your partner or ex-partner? Pt Unable Within the last year, have you been raped or forced to have any kind of sexual activity by your partner or ex-partner? Pt Unable The above information was obtained from the patients spouse, Xavier Veloz. MAXWELL Torres, RN Clinical Systems Qa Analyst [facility] 07-29-2024 Nurse Note Phoned Xavier Veloz, spouse at [phone] and identified self as the CM. Patient was admitted on 07/27/24 for a stroke. She has word finding difficulty. Patient has Medicare [employer] insurance with Rx coverage. PCP is Dr. Clyde Downing. LNOK is Xavier Veloz, spouse. Mr. Veloz stated that there is no one else he can have as a contact for his . The patient has a Living Will and HPOA at home. Requested that Mr. Veloz bring it to the hospital and so it could be placed in her records. Mr. Veloz stated that his was brought to [facility] per [facility] from [facility]. He is currently ill with cancer and receiving Chemo treatments and unable to physically drive to [place]. Discussed that PT has recommended SNF. He is agreeable to the SNF if it is at the [facility]. If the patient is to come home he would like nursing care from [facility]. The patient is currently receiving out patient speech therapy at [facility], which is where he would like all of the out patient therapies. The location is one mile from their home. Mr. Veloz expressed that his greatest concern is getting his transported home since he cannot drive to [place] to bring her home. Discussed that ambulance or ambulette transport should be possible. Reviewed that referrals will be made for the rehab at [facility] and [facility]. The CM will contact him to discuss discharge plans. Contact information for the weekday CM was provided per his request. 07/29/24 1433 Patient Assessment Completed Patient Assessment Completed Initial Initial Discharge Planning Expected Discharge Disposition SNF Transportation Available for Discharge Ambulance;Wheelchair Van Anticipated DME none Anticipated Services at Discharge Speech Therapy;Intermediate;Physical Therapy;Occupational Therapy Admission Assessment Reason for Admission Stroke Is the patient able to participate in the assessment? No Explanation of why patient is unable to participate word finding with difficulty Information source Significant Other or Partner Information Source Name/Contact Xavier Veloz, Demographics Verified and Updated Yes Has the patient been admitted to any hospital in the last 30 days? No Advanced Care Planning Has the patient completed Advance Directives? Completed, Not Available in Medical Record Copy of Advance Directives was requested? Yes Advance Directives Requested From Spouse, Xavier Veloz. Legal Next of Kin Does the patient have a Guardian? No Spouse Yes Name and Contact information Xavier Veloz Adult Child(kely), List All Adult Children No Parent(s) - List All Living Parents No Adult Sibling(s), List All Adult Siblings No Nearest Adult Related by Blood or Adoption No Patient Reports No Relatives by Blood or Adoption. No Reviewed and Updated in Demographics? Yes Outpatient Providers Does patient have a primary care physician? Yes (PCP - Dr. Clyde Downing) When was the patient's last PCP visit? Unknown at this time Does the patient follow any specialists? Yes Environment/Caregivers Is the patient from a facility or nursing home? No Patient lives with Spouse or Partner Living Environment House (single story) How many steps does the patient have to navigate to enter or inside the home? 2 Does the patient have a first floor set-up with bed and bathroom? Yes Patient Caregiving Responsibilities Self Patient-identified caregiver/support network Family (spouse) Who does the patient identify as a teachable caregiver(s)? Spouse or Partner Services Does the patient use a home health or hospice agency? No Current with dialysis? No Does the patient use any community programs or services? No Does patient use DME? grab bars Does the patient use oxygen? No Anticipated Changes Related to Illness/Injury? Yes Inability to care for self? Yes Inability to care for dependents? N/A Inability to return to school/work? N/A Initial ADLs Prior to Arrival What is the patient's baseline physical functioning prior to this acute illness? independent What is the patient's baseline cognitive functioning prior to this acute illness? independent Is the patient's baseline functioning changed by this acute illness? Yes Changes observed Physical;Cognitive Concerns with patient being able to care for themselves at home? Yes Are there therapy or specialists consults? Yes Select consult type PT Does the patient's home require any home modifications for discharge? No Medication Management Does the patient have prescription insurance coverage? Yes Is the patient on Anticoagulation? 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 No Employed? Retired Coping/Stress Concerns about patient s coping and stress? Unable to Assess Concerns about patient s caregiver s coping and stress? No Values and Beliefs Cultural or lutheran practices that may impact discharge planning and/or medical care? Yes MAXWELL Torres, RN Clinical Systems Qa Analyst [facility] 07-29-2024 Plan of care note Problem: Pain Acute Goal: Optimal Pain Control and Function Outcome: Progressing Intervention: Prevent or Manage Pain Flowsheets (Taken 07/29/2024 1541) Bowel Elimination Promotion: privacy promoted Medication Review/Management: medications reviewed [facility] 07-29-2024 Nurse Note Reassessment done. Patient denies pain or discomfort. Able to turn and reposition self. Call light is within reach. No seizure activity noted at this time. Plan of care continues. [facility] 07-29-2024 Plan of care note Problem: Swallowing Impairment Goal: Optimal Eating/Swallowing without Aspiration Outcome: Progressing Problem: Fall Injury Risk Goal: Fall/Trauma/Injury Risk: Absence of Trauma/Injury/Falls Description: Patient will demonstrate the desired outcomes. Outcome: Progressing Goal: Knowledge of risk factors/behavior modification Description: Knowledge of risk factors/behavior modification for fall/injury prevention Outcome: Progressing [facility] 07-28-2024 Nurse Note Assessment completed without changes to previous except as documented. Pt more awake and alert w/ modified NIH of 1. Safety rounds completed with pt in bed and call light within reach. Bed exit alarm set. [facility] 07[facility] Plan of care note Problem: Dysphagia Goal: Ongoing Assessment - Patient will participate in assessment by accepting various PO consistency trials with appropriate participation/oral acceptance and no significant respiratory complications to determine need for dysphagia services Outcome: Met Problem: POULTRY RAISER - Cognition Goal: Memory: Hospital Facts - Patient will utilize preferred compensatory memory strategies with moderate cues to teach back at least 2 facts related to their hospitalization/plan of care across a 3 min delay to support generalization of strategy use Outcome: Progressing Problem: POULTRY RAISER - Language Goal: Name Basic Objects/Pictures - Patient will name basic objects/pictures with 80% accuracy, with maximum cues in order to improve word-finding and functional communication Outcome: Progressing [facility] 07-28-2024 Consult note Associated Order (s): IP CONSULT TO NEUROVASCULAR NEUROLOGY CONSULTATION NOTE Reason for consultation: AMS, possible seizure like activity History of present illness: Poonam Veloz is a 83 y.o. female with history of L MCA inferior division ischemic stroke, HTN, HLD, who presents as a transfer from [facility] for AMS and poss seizure activity after initially presenting from speech therapy for possible stroke. Pt was at speech therapy yesterday when she was noted to have with intermittent Rt arm ataxia, drift and numbness.LKW 07/27/2024 13:00 EDT. Initially on arrival to [facility] she was able to provide history, Tele stroke NIHSS 5 (1quest, 1 command, 1 ataxia, 1 sensory, 1 aphasia). CTH did not show acute changes. Was thought to be Stroke recrudescence vs. ischemia vs TIA. Did not receive TNK as low NIHSS. Pt reported feeling anxious about MRI. While in the MRI, she had an episode c/f seizure described as LUE and RLE jerking, garbled speech, disorientation, and tongue bite. Was aborted with 2 mg ativan. CTH was repeated which did not show any changes from previous scan. Was transferred here for further work up. On arrival to [facility], pt was noted have decreased mental status. NIHSS 20. Repeat CTH, and MRI brain did not show acute changes. During our encounter, pt is moderate to severely aphasic and unable to provide meaningful history. Although reports having episodic involuntary movements of her right hand for few days. Unable to provide more details about any aura or post ictal symptoms. Discussed with patients over phone call(he cannot come due to his medical issues), he reports pt having having aphasia and some visual deficits during previous stroke in January and denies any weakness at that time. Since then she had been improving except that she had myalgias and shoulder weakness with statin. He is not sure but in recent times she mentioned once about RUE weakness and inability to hold things. 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 He has spoken to her today afternoon and felt she is almost back to baseline except that she did not remember being in helicopter and thought she was in [facility]. Pt states she does not feel the same way mental status duenas as she was 2 weeks ago. Medical History Review of Systems: Pertinent items are noted in the HPI, all other systems were queried and are negative. Past Medical History: Diagnosis Date HLD (hyperlipidemia) HTN (hypertension) Stroke 02/2024 Left parietal area? No past surgical history on file. Family History Family history unknown: Yes Social History Socioeconomic History Marital status: Not on file Spouse name: Not on file Number of children: Not on file Years of education: Not on file Highest education level: Not on file Occupational History Not on file Tobacco Use Smoking status: Unknown Smokeless tobacco: Not on file Vaping Use Vaping status: Unknown Substance and Sexual Activity Alcohol use: Not on file Drug use: Not on file Sexual activity: Not on file Other Topics Concern Not on file Social History Narrative Hosp Med 07/27/2024: Lives with Xavier All medical and social history collected via phone call with him. Was not able to collect all of it due to need for history of present illness collection more urgently. Social Determinants of Health Financial Resource Strain: Not on file Food Insecurity: Not on file Transportation Needs: Not on file Physical Activity: Not on file Stress: Not on file Social Connections: Not on file Intimate Partner Violence: Not on file Housing Stability: Not on file No Known Allergies Medications Prior to Admission Medication Sig Dispense Refill Last Dose aspirin 81 MG Chew Tab chewable tablet Chew 1 tablet daily. 07/26/2024 Coenzyme Q10 (CoQ-10) 100 MG capsule Take 1 capsule by mouth daily. Instructed by PCP to take to help with statin tolerance. 07/26/2024 hydroCHLOROthiazide 12.5 MG capsule Take 1 capsule by mouth daily. 07/26/2024 Losartan 50 MG tablet Take 1 tablet by mouth daily. 07/26/2024 Pitavastatin Calcium 1 MG tablet Take 1 tablet by mouth every 3 days. Past Week Sertraline 100 MG tablet Take 1 tablet by mouth daily. 07/26/2024 Current Medications Current Facility-Administered Medications Medication Dose Route Frequency Provider Last Rate Last Admin Acetaminophen (TYLENOL) tablet 650 mg 650 mg Oral Q4H PRN Donn Denton DO aspirin chewable tablet 81 mg 81 mg Oral Daily Josias Joseph MD Docusate (COLACE) capsule 100 mg 100 mg Oral Q12H Josias Joseph MD Enoxaparin Sodium (LOVENOX) injection 40 mg 40 mg Subcutaneous Q24H Donn Denton DO 40 mg at 07/28/24 0851 hydrALAZINE (APRESOLINE) tablet 25 mg 25 mg Oral Q8H PRN Josias Joseph MD hydroCHLOROthiazide (MICROZIDE) capsule 12.5 mg 12.5 mg Oral Daily Josias Joseph MD Losartan (COZAAR) tablet 50 mg 50 mg Oral Daily Josias Joseph MD Melatonin tablet 6 mg 6 mg Oral QHS PRN Josias Joseph MD Ondansetron 4mg/2ml (ZOFRAN) injection 4 mg 4 mg Intravenous Q6H PRN Josias Joseph MD Polyethylene glycol (MIRALAX) packet 17 g 17 g Oral BID PRN Josias Joseph MD Senna (SENOKOT) tablet 8.6 mg 8.6 mg Oral QAM Josias Joseph MD Sertraline (ZOLOFT) tablet 100 mg 100 mg Oral Daily Josias Joseph MD Physical Examination Temp: [97.5 F (36.4 C)-99.3 F (37.4 C)] 97.5 F (36.4 C) Pulse (Heart Rate): [83-93] 92 Resp Rate: [13-18] 18 BP: (104-177)/(57-79) 120/57 O2 Sat (%): [96 %] 96 % Weight: [63.4 kg (139 lb 12.4 oz)-63.4 kg (139 lb 12.8 oz)] 63.4 kg (139 lb 12.4 oz) Body mass index is 26.41 kg/m . General: Laying comfortably in bed; in no acute distress. Neurological Examination Mental status: awake and alert; oriented to her name, month and year, but not to place (says home and her own bed). Frustrated affect. Unable to tell her . Speech/language: not fluent , unable to repeat, and unable to name objects able to name watch but not dial, unable to name glasses but able to name lens. Unable to name fingers. Cranial nerves: CN II: Visual cano difficult to assess but seems to have Right eye outer lower quadrant Vf defect. . PERRL. Normal conjunctivae and lids. supervisor veneer III, IV and : extraocular movements intact. No nystagmus. CN V: Facial sensation is intact to light touch. CN VII: Facial strength normal with symmetric movement. CN VIII: Hearing is grossly intact. CN IX and X: Soft palate elevates symmetrically in the midline CN XI: Shoulder shrug and sternocleidomastoid strength (R/L) 5/5 CN XII: Tongue is midline with normal movement; no fasciculations. Motor: Normal bulk and tone. Unable to supinate RUE completely but no pronator drift . Intermittent R hand high amplitude movements. Mvmt Root Nerve Muscle Right Left Comments SA C5/6 Ax Deltoid 5 5 EF C5/6 Mc Biceps 4 5 EE C6/7/8 Rad Triceps 4 5 WF C6/7 Med FCR 4 5 WE C7/8 PIN ECU 4 5 F Ab C8/T1 U ADM/FDI 4 5 HF L1/2/3 Fem Illopsoas 5 5 KE L2/3/4 Fem Quad 5 5 DF L4/5 D Peron Tib Ant 5 5 PF S1/2 Tibial Grc/Yasmeen 5 5 Reflexes: Right Left Comments Biceps 2+ 2+ Triceps 2 2 Brachioradialis 2 2 Patellar 2+ 2+ Achilles 2 2 Jaw jerk Lemus -ve -ve Babinski mute mute Sensation: Comments Light touch Intact throughout Pin prick Temperature Vibration Proprioception Coordination: [id number] intact bilaterally. Stroke Assessment: 07/28/2024 Diagnostic Data Laboratory data: Labs-CBC WBC/Hgb/Hct/Plts: 9.92/11.1/33.8/318 (07/28 16) Labs-Chem 7([facility]) Bun/Creat/Cl/CO2/Glucose: 15/0.70/104/24/104 (07/28 16) Na/K+/Phos/Mg/Ca: 137/4.3/3.2/2.1/9.2 (07/28 16) liver function tests: normal Labs-Coags Additional Labs Lab Results Component Value Date CHOLESTEROL 163 07/28/2024 TRIG 87 07/28/2024 HDL 51 07/28/2024 LDLCALC 95 07/28/2024 Imaging: CT Stroke Head:Left acute/subacute MCA distribution infarction. No hemorrhagic conversion MRI BRAIN WITHOUT CONTRAST, 07/27/2024 22:51 PM : No acute intracranial abnormalities. Chronic left MCA distribution infarct. Diagnostic procedures: Farhan Veloz is a 83 year old female with hx of recent LMCA stroke who is having intermittent involuntary movements of RUE followed by weakness. On exam, she is not oriented to place, has moderate to severe aphasia, VF defect in Right eye, weakness in RUE. MRI brain with out acute findings but remote LMCA infarct. Presentation c/f seizure with todds paralysis. Seizure focus likely from previous site of stroke. Cannot rule out subclinical sz since she is not completely back to baseline mental status. Recommendations: - start keppra 500 mg BID. - cvEEG- ordered - please press red event button if symptoms concerning for seizure. - seizure precautions The patient was also counseled on driving restrictions. Patient is aware of the need to be seizure free for six months prior to driving. Patient was informed of the risk of injury and associated with driving with uncontrolled seizures. Patient verbalized an understanding. Please be mindful of seizure precautions: NO SWIMMING, NO UNMONITORED BATHS, and, in general, no activities in which a sudden loss of consciousness could potentially cause severe injury (horseback riding, climbing trees, etc). Thank you for the consultation. If you have any further questions, please contact Neurology Team at [facility]. Patient and plan discussed with Dr. Brar. ARLINE Winchester Neurology PGY-4 Pager: [phone] 07/28/24 12:35 PM Associated attestation - Lauren Brar MD - 07/28/2024 5:51 PM EDT Neurology Attending Note: I have seen and examined/evaluated the patient today on 07/28/24. I agree with the history, examination, and medical decision making as noted by the resident and discussed the case with the resident. I have personally reviewed all available clinical data related to today's encounter. 83F with 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 Following her stroke, she had residual speech deficits. She was at her speech therapy appointment on 07/27 when she was noted to have difficulty using her right hand prompting presentation to [facility] as a code stroke. There, symptoms were improving so she was a no go for thrombolytics. While undergoing MRI, she exhibited rhythmic jerking of the right hand and decline in mentation. Exam: awake. Oriented to self, home, July 2024. Able to name simple items, cannot repeat or follow commands. Slight right arm weakness discernable with pull testing (her aphasia precludes a detailed motor exam). Reviewed labs: A1c 6.1, ALT 10, AST 25, WBC 9.92, Hgb 11.1, Na 137, K 4.3, BUN 15, Cr 0.70. Reviewed MRI brain 07/27/2024- no acute stroke- area of encephalomalacia in the L MCA territory. A/P: 83 year old woman with recent stroke here with right arm weakness and seizure-like activity. Not at her neurologic baseline - Start Keppra 500mg BID - continuous EEG Lauren Brar MD Police Aide, Neurology Neuromuscular Division [facility] Work Phone: 07-28-2024 Consult note Associated Order (s): IP CONSULT TO NEUROVASCULAR NEUROLOGY CONSULTATION NOTE Reason for consultation: AMS, possible seizure like activity History of present illness: Poonam Veloz is a 83 y.o. female with history of L MCA inferior division ischemic stroke, HTN, HLD, who presents as a transfer from [facility] for AMS and poss seizure activity after initially presenting from speech therapy for possible stroke. Pt was at speech therapy yesterday when she was noted to have with intermittent Rt arm ataxia, drift and numbness.LKW 07/27/2024 13:00 EDT. Initially on arrival to [facility] she was able to provide history, Tele stroke NIHSS 5 (1quest, 1 command, 1 ataxia, 1 sensory, 1 aphasia). CTH did not show acute changes. Was thought to be Stroke recrudescence vs. ischemia vs TIA. Did not receive TNK as low NIHSS. Pt reported feeling anxious about MRI. While in the MRI, she had an episode c/f seizure described as LUE and RLE jerking, garbled speech, disorientation, and tongue bite. Was aborted with 2 mg ativan. CTH was repeated which did not show any changes from previous scan. Was transferred here for further work up. On arrival to [facility], pt was noted have decreased mental status. NIHSS 20. Repeat CTH, and MRI brain did not show acute changes. During our encounter, pt is moderate to severely aphasic and unable to provide meaningful history. Although reports having episodic involuntary movements of her right hand for few days. Unable to provide more details about any aura or post ictal symptoms. Discussed with patients over phone call(he cannot come due to his medical issues), he reports pt having having aphasia and some visual deficits during previous stroke in January and denies any weakness at that time. Since then she had been improving except that she had myalgias and shoulder weakness with statin. He is not sure but in recent times she mentioned once about RUE weakness and inability to hold things. 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 He has spoken to her today afternoon and felt she is almost back to baseline except that she did not remember being in helicopter and thought she was in [facility]. Pt states she does not feel the same way mental status deunas as she was 2 weeks ago. Medical History Review of Systems: Pertinent items are noted in the HPI, all other systems were queried and are negative. Past Medical History: Diagnosis Date HLD (hyperlipidemia) HTN (hypertension) Stroke 02/2024 Left parietal area? No past surgical history on file. Family History Family history unknown: Yes Social History Socioeconomic History Marital status: Not on file Spouse name: Not on file Number of children: Not on file Years of education: Not on file Highest education level: Not on file Occupational History Not on file Tobacco Use Smoking status: Unknown Smokeless tobacco: Not on file Vaping Use Vaping status: Unknown Substance and Sexual Activity Alcohol use: Not on file Drug use: Not on file Sexual activity: Not on file Other Topics Concern Not on file Social History Narrative Hosp Med 07/27/2024: Lives with Xavier All medical and social history collected via phone call with him. Was not able to collect all of it due to need for history of present illness collection more urgently. Social Determinants of Health Financial Resource Strain: Not on file Food Insecurity: Not on file Transportation Needs: Not on file Physical Activity: Not on file Stress: Not on file Social Connections: Not on file Intimate Partner Violence: Not on file Housing Stability: Not on file No Known Allergies Medications Prior to Admission Medication Sig Dispense Refill Last Dose aspirin 81 MG Chew Tab chewable tablet Chew 1 tablet daily. 07/26/2024 Coenzyme Q10 (CoQ-10) 100 MG capsule Take 1 capsule by mouth daily. Instructed by PCP to take to help with statin tolerance. 07/26/2024 hydroCHLOROthiazide 12.5 MG capsule Take 1 capsule by mouth daily. 07/26/2024 Losartan 50 MG tablet Take 1 tablet by mouth daily. 07/26/2024 Pitavastatin Calcium 1 MG tablet Take 1 tablet by mouth every 3 days. Past Week Sertraline 100 MG tablet Take 1 tablet by mouth daily. 07/26/2024 Current Medications Current Facility-Administered Medications Medication Dose Route Frequency Provider Last Rate Last Admin Acetaminophen (TYLENOL) tablet 650 mg 650 mg Oral Q4H PRN Donn Denton DO aspirin chewable tablet 81 mg 81 mg Oral Daily Josias Joseph MD Docusate (COLACE) capsule 100 mg 100 mg Oral Q12H Josias Joseph MD Enoxaparin Sodium (LOVENOX) injection 40 mg 40 mg Subcutaneous Q24H Donn Denton DO 40 mg at 07/28/24 0851 hydrALAZINE (APRESOLINE) tablet 25 mg 25 mg Oral Q8H PRN Josias Joseph MD hydroCHLOROthiazide (MICROZIDE) capsule 12.5 mg 12.5 mg Oral Daily Josias Joseph MD Losartan (COZAAR) tablet 50 mg 50 mg Oral Daily Josias Joseph MD Melatonin tablet 6 mg 6 mg Oral QHS PRN Josias Joseph MD Ondansetron 4mg/2ml (ZOFRAN) injection 4 mg 4 mg Intravenous Q6H PRN Josias Joseph MD Polyethylene glycol (MIRALAX) packet 17 g 17 g Oral BID PRN Josias Joseph MD Senna (SENOKOT) tablet 8.6 mg 8.6 mg Oral QAM Josias Joseph MD Sertraline (ZOLOFT) tablet 100 mg 100 mg Oral Daily Josias Joseph MD Physical Examination Temp: [97.5 F (36.4 C)-99.3 F (37.4 C)] 97.5 F (36.4 C) Pulse (Heart Rate): [83-93] 92 Resp Rate: [13-18] 18 BP: (104-177)/(57-79) 120/57 O2 Sat (%): [96 %] 96 % Weight: [63.4 kg (139 lb 12.4 oz)-63.4 kg (139 lb 12.8 oz)] 63.4 kg (139 lb 12.4 oz) Body mass index is 26.41 kg/m . General: Laying comfortably in bed; in no acute distress. Neurological Examination Mental status: awake and alert; oriented to her name, month and year, but not to place (says home and her own bed). Frustrated affect. Unable to tell her . Speech/language: not fluent , unable to repeat, and unable to name objects able to name watch but not dial, unable to name glasses but able to name lens. Unable to name fingers. Cranial nerves: CN II: Visual cano difficult to assess but seems to have Right eye outer lower quadrant Vf defect. . PERRL. Normal conjunctivae and lids. supervisor veneer III, IV and : extraocular movements intact. No nystagmus. CN V: Facial sensation is intact to light touch. CN VII: Facial strength normal with symmetric movement. CN VIII: Hearing is grossly intact. CN IX and X: Soft palate elevates symmetrically in the midline CN XI: Shoulder shrug and sternocleidomastoid strength (R/L) 5/5 CN XII: Tongue is midline with normal movement; no fasciculations. Motor: Normal bulk and tone. Unable to supinate RUE completely but no pronator drift . Intermittent R hand high amplitude movements. Mvmt Root Nerve Muscle Right Left Comments SA C5/6 Ax Deltoid 5 5 EF C5/6 Mc Biceps 4 5 EE C6/7/8 Rad Triceps 4 5 WF C6/7 Med FCR 4 5 WE C7/8 PIN ECU 4 5 F Ab C8/T1 U ADM/FDI 4 5 HF L1/2/3 Fem Illopsoas 5 5 KE L2/3/4 Fem Quad 5 5 DF L4/5 D Peron Tib Ant 5 5 PF S1/2 Tibial Grc/Yasmeen 5 5 Reflexes: Right Left Comments Biceps 2+ 2+ Triceps 2 2 Brachioradialis 2 2 Patellar 2+ 2+ Achilles 2 2 Jaw jerk Lemus -ve -ve Babinski mute mute Sensation: Comments Light touch Intact throughout Pin prick Temperature Vibration Proprioception Coordination: [id number] intact bilaterally. Stroke Assessment: 07/28/2024 Diagnostic Data Laboratory data: Labs-CBC WBC/Hgb/Hct/Plts: 9.92/11.1/33.8/318 (07/28 16) Labs-Chem 7([facility]) Bun/Creat/Cl/CO2/Glucose: 15/0.70/104/24/104 (07/28 16) Na/K+/Phos/Mg/Ca: 137/4.3/3.2/2.1/9.2 (07/28 16) liver function tests: normal Labs-Coags Additional Labs Lab Results Component Value Date CHOLESTEROL 163 07/28/2024 TRIG 87 07/28/2024 HDL 51 07/28/2024 LDLCALC 95 07/28/2024 Imaging: CT Stroke Head:Left acute/subacute MCA distribution infarction. No hemorrhagic conversion MRI BRAIN WITHOUT CONTRAST, 07/27/2024 22:51 PM : No acute intracranial abnormalities. Chronic left MCA distribution infarct. Diagnostic procedures: Farhan Veloz is a 83 year old female with hx of recent LMCA stroke who is having intermittent involuntary movements of RUE followed by weakness. On exam, she is not oriented to place, has moderate to severe aphasia, VF defect in Right eye, weakness in RUE. MRI brain with out acute findings but remote LMCA infarct. Presentation c/f seizure with todds paralysis. Seizure focus likely from previous site of stroke. Cannot rule out subclinical sz since she is not completely back to baseline mental status. Recommendations: - start keppra 500 mg BID. - cvEEG- ordered - please press red event button if symptoms concerning for seizure. - seizure precautions The patient was also counseled on driving restrictions. Patient is aware of the need to be seizure free for six months prior to driving. Patient was informed of the risk of injury and associated with driving with uncontrolled seizures. Patient verbalized an understanding. Please be mindful of seizure precautions: NO SWIMMING, NO UNMONITORED BATHS, and, in general, no activities in which a sudden loss of consciousness could potentially cause severe injury (horseback riding, climbing trees, etc). Thank you for the consultation. If you have any further questions, please contact Neurology Team at [facility]. Patient and plan discussed with Dr. Brar. ARLINE Winchester Neurology PGY-4 Pager: [phone] 07/28/24 12:35 PM Associated attestation - Lauren Brar MD - 07/28/2024 5:51 PM EDT Neurology Attending Note: I have seen and examined/evaluated the patient today on 07/28/24. I agree with the history, examination, and medical decision making as noted by the resident and discussed the case with the resident. I have personally reviewed all available clinical data related to today's encounter. 83F with 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 Following her stroke, she had residual speech deficits. She was at her speech therapy appointment on 07/27 when she was noted to have difficulty using her right hand prompting presentation to [facility] ER as a code stroke. There, symptoms were improving so she was a no go for thrombolytics. While undergoing MRI, she exhibited rhythmic jerking of the right hand and decline in mentation. Exam: awake. Oriented to self, home, July 2024. Able to name simple items, cannot repeat or follow commands. Slight right arm weakness discernable with pull testing (her aphasia precludes a detailed motor exam). Reviewed labs: A1c 6.1, ALT 10, AST 25, WBC 9.92, Hgb 11.1, Na 137, K 4.3, BUN 15, Cr 0.70. Reviewed MRI brain 07/27/2024- no acute stroke- area of encephalomalacia in the L MCA territory. A/P: 83 year old woman with recent stroke here with right arm weakness and seizure-like activity. Not at her neurologic baseline - Start Keppra 500mg BID - continuous EEG Lauren Brar MD Police Aide, Neurology Neuromuscular Division documented in this encounter [facility] 07-28-2024 Nurse Note Post fall huddle completed by this RN, bedside RN Noni Tran, and 3 other RNs including Kely Corona RN. Jillian Yusuf, RN, and Jacqueline Bean, CAROLYN. Huddle completed at pt bedside, with pt involved. When asked pt what staff could have done different to help her. Pt states that there is nothing that could have been done, she was just trying to do things she thought she could prior. Prior to the fall pt bed alarm did sound and CREDIT RISK REVIEW OFFICER Rishil responded immediately as this RN was at the nurses station and had just taken a call from pt and watched the CREDIT RISK REVIEW OFFICER respond as soon as the light came on. Bed alarm was connected to call light system at the time. CREDIT RISK REVIEW OFFICER walked past the nurses station, and this RN had asked CREDIT RISK REVIEW OFFICER if he was still helping 360. Pt states he was getting pt a spoon. This RN asked tree girdler to relay a message to pt since he was going back to the room that pt's had just called to check on her. Shortly after bedside RN came to this RN and stated the pt had fallen. Per report given from RN the pt reached for her bedside table and slid from the bed. Pt was sitting on edge of bed at the time CREDIT RISK REVIEW OFFICER left room. This is the same report pt gave during post fall huddle. Pt reported no pain, and declines any interventions. Pt states she did not hit her head. RN offered for MD to come to bedside and pt refused. Dr. Cummings was contacted by this RN at [phone] which was shortly after pt fell. Post-Fall Interventions that were put in place was to keep the bed alarm on for pt. Pt reminded to call for assistance to bed. Reminder placed on board for pt not to get up without help. [facility] 07-28-2024 Plan of care note Problem: OT - ADLs Goal: Grooming - Patient will complete grooming edge of bed with supervision for improved ability to safely complete ADLs. Outcome: Ongoing Problem: OT - Strength/ROM Goal: Neuro Re-education - Patient will participate in neuro re-ed of right upper extremity with supervision and 100% accuracy for improved functional use in ADLs. Outcome: Ongoing Goal: Fine Motor Coordination - Patient will participate in fine motor coordination functional task completing 07/12 reps with supervision for improved fine motor strength and coordination required to complete self-care tasks. Outcome: Ongoing Problem: OT - Transfers Goal: Transfers Toilet/ Bedside Commode - Patient will transfer to/from toilet/bedside commode with standby assistance for improved ability to safely complete ADLs. Outcome: Progressing Problem: OT - Cognition Goal: Cognition - Command Following - Patient will follow 100% of single commands during ADL task. Outcome: Progressing [facility] 07-28-2024 Plan of care note Problem: PT - General Goals Goal: Supine <-> Sit Transfers - Patient will perform supine to/from sit transfers with modified independence and without use of hospital bed features in order to improve functional mobility and safety. Outcome: Ongoing Goal: Sit <-> Stand Transfers - Patient will perform sit to/from stand transfers with modified independence and least restrictive device in order to improve functional mobility and safety. Outcome: Ongoing Goal: Standing Endurance/Balance - Patient will perform standing balance tasks for 10 min with supervision and least restrictive device while maintaining an RPE of less than 4/10 to improve endurance and safety with standing tasks. Outcome: Ongoing Goal: Ambulation - Patient will ambulate 250 feet with supervision and least restrictive device to improve ability to safely navigate home and community. Outcome: Ongoing [facility] 07-28-2024 Nurse Note Patient is transported on bed to [place]. Report received from CAROLYN soliman. Patient on ship mate, is NSR. Alert and oriented.ticket to ride is with patient. Pt completed test with no complaints. Transported back to room. CAROLYN Soliman notified [facility] 07-28-2024 Nurse Note [place] Swallow put on hold due to pt being drowsy and lethargic. Safety concern for aspiration so chapis swallow put on hold until pt is more alert. [facility] 07-28-2024 Nurse Note Assessment completed without changes to previous except as documented. Safety rounds completed with pt in bed and call light within reach. Bed exit alarm set. NIH modified scale of 1. [facility] 07-28-2024 Note Acute Coronary Syndr ome (ACS): Initial Evaluation and Management: [email or web address] [email or web address] onin [facility] 07-27-2024 Nurse Note Images from the original note were not included. On admission to 3, from another [facility] inpatient unit a dual RN initial assessment of skin condition was performed by Kulwinder Garcia RN and Laura Solis RN. Skin Assessment: Skin not within defined limits. - Photo taken and uploaded into notes in IHIS: Yes LDA Added:No Kulwinder Garcia RN [facility] 07-27-2024 Nurse Note Patient transported from [place] to on tele and pulse ox. Report called previously. [facility] 07-27-2024 Nurse procedure note Notes from conversation with : February 2024 - first stroke afterwards trouble readings letters and numbers - currently in speech therapy. 12pm today had speech therapy appointment - drove herself - just passed her driving test 1-2 weeks ago. Sounds like had statin myalgia - dosing was reduced and started on Q10. 20/30 vision at eye doctor this past month - doesn't not have great peripheral vision. She does not wear glasses except when driving at night. noted when he was with her in the ED her right arm seemed weak and she could wiggle her fingers He thought her mouth looked a little off but the nurse said it was fine. reports she will move her legs throughout the night when sleeping (not officially diagnosed at [facility]) - he will take her feet and slide them up and down on her heels and he noted she was doing this prior to transfer but it was more pronounced that what she does when in bed. Med information from bottles at home: Sertraline 100 milligrams once a day Pitavistatin 1 milligrams (livalo brand) daily Hydrochlorothiazide 12.5 milligrams I cap daily (thinks this is the one causing the issues) Losartan 50 milligrams taking daily Qunol Ultra CQ-10 - 100 milligrams take with statin - taking for about 2 weeks. ASA 81 milligrams po daily [facility] 07-27-2024 History and physical note Hospital Medicine Admission History & Physical Patient: Poonam Veloz : 1940, Date of face to face patient encounter: 07/27/2024 I spent a total of 175 min on this patient's admission, examination, reviewing paper and electronic records, coordinating care with MRI and CT, speaking with family/, and updating nursing team. Impression / Plan Altered mental status - concern for stroke +/- seizure at OSH. Difficult to arouse on arrival. GCS 9, NIH 20. Was given a total of 3 milligrams of Ativan (1po and 2iv) within [address] Head and MRI completed, awaiting results. Not able to interpret images myself on review. NIH monitoring NPO until swallow evaluation Neuro consult BP treatment to maintain <220 systolic/<110 diastolic until cause for AMS can be determined. I am concerned for possible TIA/Stroke with overlying medication side effect. Will give 1L IVF overnight to help flush her system. Transfer to PCU for closer monitoring. History of stroke 02/2024 Taking asa 81 milligrams daily - continue when clear for diet/passes swallow HTN Hold antihypertensives until evaluation complete. Losartan and hydrochlorothiazide at home. Continue when passes bedside swallow/clear for PO. HLD Statin at home. This may be cuasing her myalgias. was not sure which medication it was (statin or hydrochlorothiazide?) Taking CQ10 daily to help with side effects. SOCIAL Discussed her case, symptoms, and plan at length with spouse Xavier via telephone (40 min). He is undergoing chemo for prostate cancer and too weak to visit. He would like updates on her condition via telephone. DVT prophylaxis: Lovenox Anticipated Disposition: Undetermined Code status is Full Code Chief Complaint Transfer, seizure like activity, possible stroke History of Presenting Illness Poonam presents to the hospital today as a transfer from [facility] for AMS and poss seizure activity after initially presenting from speech therapy for possible stroke. Poonam Veloz is a 83 y.o. female with a past medical history of right hand dominance, HTN, primary stroke February 2024, and HLD. Patient is relatively obtunded, is responding to loud verbal stimuli and painful stim. All history obtained from printed records that accompanied her and her via telephone. [place] 02/2024 - reports only deficits in speech/recognizing letters and numbers. No weakness. No tremor. She was just cleared to drive by the [facility] within the last 2 weeks. She had her vision checked prior to that and reported to be 20/30 at that time. Today's events: Per @11:45 am she was well and her usual health post stroke (feeding the dog, active, no issues with weakness) She drove herself to speech therapy At speech therapy she as sent to the ED due to difficulty with her right upper extremity Initial evaluation in the emergency department she was alert and able to give history reported no headache or weakness at that time. Initial NIH documented was a 5. (a score of 1 each for LOC questions, motor right arm, limb ataxia, sensory, and best language.) Telestroke was completed, NIH reportedly improved to 2 per ED provider documentation so no intervention was recommended. ECG on arrival was NSR at [address] or T-wave changes as interpreted by the ED physician.She has a CTA head and neck at 1400 hours that showed left parietal encephalomalacia and otherwise stable Carotid disease (mod right stenosis 50-69% and mild left <50%) Patient reported anxiety for upcoming MRI test and was given 1 mg of Ativan p.o. at 1617 hours. While in MRI an AERIAL HURRICANE HUNTER/ERT was called for seizure like activity. She was given 2 milligrams Ativan IV at 1745. @ 1728 hours the ED nurse documented Per the MRI staff patient exhibited left arm jerking and bit her tongue. At that time patient was unable to lift right arm or leg, exhibited rhythmic jerking of right leg, was leaning to the left side, speech was more garbled, and seemed less oriented. She had a repeat head CT (which showed no change from comparing the reports) and her NIH increase to 15. At that time [facility] was [facility] for continuous [facility]. She arrived via helicopter to the 7th floor med-surg. The nurse felt she was not safe for that unit and requested evaluation as she seemed obtunded. Review of Systems Unable to perform ROS: Mental status change History Past Medical History: Diagnosis Date HLD (hyperlipidemia) HTN (hypertension) Stroke 02/2024 Left parietal area? No past surgical history on file. Social History she has no history on file for tobacco use, alcohol use, and drug use. Social History Social History Narrative Hosp Med 07/27/2024: Lives with Xavier All medical and social history collected via phone call with him. Was not able to collect all of it due to need for history of present illness collection more urgently. Family History Family history is unknown by patient. Medications / Allergies No Known Allergies Objective Findings Vitals: 07/27/24 2100 07/27/24 2200 BP: 177/70 141/70 Pulse: 83 85 Resp: 16 16 Temp: 98.9 degrees F (37.2 degrees C) 97.8 degrees F (36.6 degrees C) TempSrc: Axillary Oral SpO2: 96% Physical Exam Vitals and nursing note reviewed. Constitutional: General: She is not in acute distress. Appearance: She is well-developed. She is ill-appearing. HENT: Head: Normocephalic and atraumatic. Right Ear: External ear normal. Left Ear: External ear normal. Eyes: General: Visual field deficit present. Conjunctiva/sclera: Conjunctivae normal. Comments: Patient does not fixate on any object. Oculocephalic reflex unresponsive to manual head movement. Cardiovascular: Rate and Rhythm: Normal rate and regular rhythm. Pulmonary: Effort: Pulmonary effort is normal. Comments: Snoring when not engaged in exam Musculoskeletal: Cervical back: Normal range of motion and neck supple. Skin: General: Skin is warm and dry. Capillary Refill: Capillary refill takes less than 2 seconds. Coloration: Skin is not ashen or cyanotic. Neurological: GCS: GCS eye subscore is 2. GCS verbal subscore is 2. GCS motor subscore is 5. Cranial Nerves: Dysarthria and facial asymmetry present. Motor: Weakness and abnormal muscle tone present. No tremor, atrophy or seizure activity. Coordination: Mkzsmj-Kffq-Prorwv Test abnormal and Heel to Yi Test abnormal. Deep Tendon Reflexes: Babinski sign absent on the right side. Babinski sign absent on the left side. Comments: See NIH scale completed on arrival - documented under nursing NIH by accident. 20 on arrival. Hold her arms in flexion bilaterally, can be easily overcome. Continually moving her left leg up and down her right yi. (Similar to what described). Evaluated her again 40 min later before going to CT, she would open her eyes to loud command (rather than just painful stim) but still not fixating, continues to state she can see me. Data Review [facility] 07-27-2024 History and physical note Hospital Medicine Admission History & Physical Patient: Poonam Veloz : 1940, Date of face to face patient encounter: 07/27/2024 I spent a total of 175 min on this patient's admission, examination, reviewing paper and electronic records, coordinating care with MRI and CT, speaking with family/, and updating nursing team. Impression / Plan Altered mental status - concern for stroke +/- seizure at OSH. Difficult to arouse on arrival. GCS 9, NIH 20. Was given a total of 3 milligrams of Ativan (1po and 2iv) within 120 min of arrival. STAT CT Head and MRI completed, awaiting results. Not able to interpret images myself on review. NIH monitoring NPO until swallow evaluation Neuro consult BP treatment to maintain <220 systolic/<110 diastolic until cause for AMS can be determined. I am concerned for possible TIA/Stroke with overlying medication side effect. Will give 1L IVF overnight to help flush her system. Transfer to PCU for closer monitoring. History of stroke 02/2024 Taking asa 81 milligrams daily - continue when clear for diet/passes swallow HTN Hold antihypertensives until evaluation complete. Losartan and hydrochlorothiazide at home. Continue when passes bedside swallow/clear for PO. HLD Statin at home. This may be cuasing her myalgias. was not sure which medication it was (statin or hydrochlorothiazide?) Taking CQ10 daily to help with side effects. SOCIAL Discussed her case, symptoms, and plan at length with spouse Xavier via telephone (40 min). He is undergoing chemo for prostate cancer and too weak to visit. He would like updates on her condition via telephone. DVT prophylaxis: Lovenox Anticipated Disposition: Undetermined Code status is Full Code Chief Complaint Transfer, seizure like activity, possible stroke History of Presenting Illness Poonam presents to the hospital today as a transfer from [facility] for AMS and poss seizure activity after initially presenting from speech therapy for possible stroke. Poonam Veloz is a 83 y.o. female with a past medical history of right hand dominance, HTN, primary stroke February 2024, and HLD. Patient is relatively obtunded, is responding to loud verbal stimuli and painful stim. All history obtained from printed records that accompanied her and her via telephone. [place] 02/2024 - reports only deficits in speech/recognizing letters and numbers. No weakness. No tremor. She was just cleared to drive by the [facility] within the last 2 weeks. She had her vision checked prior to that and reported to be 20/30 at that time. Today's events: Per @11:45 am she was well and her usual health post stroke (feeding the dog, active, no issues with weakness) She drove herself to speech therapy At speech therapy she as sent to the ED due to difficulty with her right upper extremity Initial evaluation in the emergency department she was alert and able to give history reported no headache or weakness at that time. Initial NIH documented was a 5. (a score of 1 each for LOC questions, motor right arm, limb ataxia, sensory, and best language.) Telestroke was completed, NIH reportedly improved to 2 per ED provider documentation so no intervention was recommended. ECG on arrival was NSR at [address] or T-wave changes as interpreted by the ED physician.She has a CTA head and neck at 1400 hours that showed left parietal encephalomalacia and otherwise stable Carotid disease (mod right stenosis 50-69% and mild left <50%) Patient reported anxiety for upcoming MRI test and was given 1 mg of Ativan p.o. at 1617 hours. While in MRI an AERIAL HURRICANE HUNTER/ERT was called for seizure like activity. She was given 2 milligrams Ativan IV at 1745. @ 1728 hours the ED nurse documented Per the MRI staff patient exhibited left arm jerking and bit her tongue. At that time patient was unable to lift right arm or leg, exhibited rhythmic jerking of right leg, was leaning to the left side, speech was more garbled, and seemed less oriented. She had a repeat head CT (which showed no change from comparing the reports) and her NIH increase to 15. At that time [facility] for [facility]. She arrived via helicopter to the 7th floor med-surg. The nurse felt she was not safe for that unit and requested evaluation as she seemed obtunded. Review of Systems Unable to perform ROS: Mental status change History Past Medical History: Diagnosis Date HLD (hyperlipidemia) HTN (hypertension) Stroke 02/2024 Left parietal area? No past surgical history on file. Social History she has no history on file for tobacco use, alcohol use, and drug use. Social History Social History Narrative Hosp Med 07/27/2024: Lives with Xavier All medical and social history collected via phone call with him. Was not able to collect all of it due to need for history of present illness collection more urgently. Family History Family history is unknown by patient. Medications / Allergies No Known Allergies Objective Findings Vitals: 07/27/24 2100 07/27/24 2200 BP: 177/70 141/70 Pulse: 83 85 Resp: 16 16 Temp: 98.9 degrees F (37.2 degrees C) 97.8 degrees F (36.6 degrees C) TempSrc: Axillary Oral SpO2: 96% Physical Exam Vitals and nursing note reviewed. Constitutional: General: She is not in acute distress. Appearance: She is well-developed. She is ill-appearing. HENT: Head: Normocephalic and atraumatic. Right Ear: External ear normal. Left Ear: External ear normal. Eyes: General: Visual field deficit present. Conjunctiva/sclera: Conjunctivae normal. Comments: Patient does not fixate on any object. Oculocephalic reflex unresponsive to manual head movement. Cardiovascular: Rate and Rhythm: Normal rate and regular rhythm. Pulmonary: Effort: Pulmonary effort is normal. Comments: Snoring when not engaged in exam Musculoskeletal: Cervical back: Normal range of motion and neck supple. Skin: General: Skin is warm and dry. Capillary Refill: Capillary refill takes less than 2 seconds. Coloration: Skin is not ashen or cyanotic. Neurological: GCS: GCS eye subscore is 2. GCS verbal subscore is 2. GCS motor subscore is 5. Cranial Nerves: Dysarthria and facial asymmetry present. Motor: Weakness and abnormal muscle tone present. No tremor, atrophy or seizure activity. Coordination: Qikkyb-Ufro-Qcdfkw Test abnormal and Heel to Yi Test abnormal. Deep Tendon Reflexes: Babinski sign absent on the right side. Babinski sign absent on the left side. Comments: See NIH scale completed on arrival - documented under nursing NIH by accident. 20 on arrival. Hold her arms in flexion bilaterally, can be easily overcome. Continually moving her left leg up and down her right yi. (Similar to what described). Evaluated her again 40 min later before going to CT, she would open her eyes to loud command (rather than just painful stim) but still not fixating, continues to state she can see me. Data Review documented in this encounter [facility] 02-08-2024 Discharge summary Note Date/Time February 08, 2024 2:14pm [facility] Medical Records Department [address] [place] [address] Instructions for Home/Discharge Instructions 02/08/24 1413 MR#: [id number] Acct: [id number] Name: POONAM VELOZ Rep #:[id number] : 1940 83 From: Jayy gamboa MD PCP: Dr. Clyde Downing MD Status:ADM I N Discharge Instructions Diet Discharge Diet: Low fat / Low cholesterol Activity Discharge Activity: Return to Normal Activity Dressing / Incision Call your doctor if you observe: Fever of 101 or Higher, Shortness of breath, Dizziness, Fainting spells, Swelling in the ankles, Chest pain and Increased palpitations (irregular heartbeat) Follow Up Care Test Results: Test results from this visit will be discussed in further detail at your follow-up appointment, if applicable. Discharge Plan Admission Admit Date/Time: 02/07/24 11:20 Attending Provider: Jayy Vera Primary Care Provider: Clyde Downing Consulting Providers: Marquez Greenberg; Charlotte Pennington; Sharmila Rasmussen; Thania Romero; Adela Flynn; Yaniv Greco; Yamilet Sandhu; Connor James; Ryan Leone; Amy Oconnor; Alejandro Moreno; Emerita Hernández; Jose Zelaya; José Bro; Dimitri Thomas; Keyon Browne; Hong Child; Lien Corona; Rossy Dong Instructions Patient Instructions: Discharge Instructions for Stroke Discharge Orders/Prescriptions Prescriptions: New aspirin 81 mg Tablet,Chewable 81 mg PO BREAKFAST 30 Days Qty: 30 0RF atorvastatin 40 mg Tablet 40 mg PO QHS 30 Days Qty: 30 0RF Continued losartan 50 mg tablet 50 mg PO DAILY meloxicam 7.5 mg tablet 7.5 mg PO DAILY hydrochlorothiazide 12.5 mg capsule 12.5 mg PO DAILY sertraline 50 mg tablet 50 mg PO DAILY Discontinued wyczceqcef-obwpfozsk-pzrreiuiq 5-160-12.5 mg tablet 1 tab PO QDAY lactobacillus combination no.9 [Adult 50 Plus Probiotic] 4 billion cell capsule 4,000 mmu cells PO QDAY Other Ambulatory Orders: 30 Day Event Recorder Preventi (Routine) Timeframe: 1 Day Facility: [facility] - Location: Cardiovascular Services Ordered By: Dr. Jayy Vera Referrals / Follow Up: Clyde Downing MD [Primary Care Provider] - Within 1 Week Ricardo Orr MD [Med Staff - Active Staff] - Within 2 Weeks (Right >70% ICA occlusion) Disposition Disposition (needs filled in before D/C Order can be placed): Home, Self Care 02/08/24 1420<Electronically signed by Jayy Vera MD>Jayy Vera MD CC: Thania Romero; Emerita Hernández; Dimitri Thomas; Adela Flynn MD; Sharmila Rasmussen MD; Marquez Greenberg MD; Dr. Charlotte Pennington MD; Dr. Yaniv Greco MD; Dr. Yamilet Sandhu MD; Dr. Ryan Leone MD; Dr. Connor James MD; Dr. Alejandro Moreno DO; Dr.Mhd New Bro MD; Dr. Jose Zelaya MD; Dr. Clyde Downing MD; Dr. Keyon Browne MD; Dr. Hong Child MD; Dr. Lien Corona MD; Amy Oconnor DO; Rossy Dong MD ~ Signed [facility] Work Phone: [phone]) 941-447205-08-2024 Consult note Author Lien Corona [facility] February 08, 2024 11:18am Note Date/Time February 08, 2024 11:14a m [facility] Medical Records Department [address] [place] [address] Consultation - Neurology 02/08/24 1112 MR#: [id number] Acct: [id number] Name: POONAM VELOZ Rep #:[id number] : 1940 83 From: Lien Corona MD PCP: Dr. Clyde Downing MD Status:ADM I N Location: ICU ICU06-1 Assessment and Plan: Stroke Assessment/Plan POONAM VELOZ, is a 83 year old RH female with history of HTN and migraines who was LKN 02/07/2024 at 11p prior to bed. Overnight she fell but shouted to her that she was okay. On 02/07 morning, noticed that patient was confused, could not open the car door and was having trouble speaking. Patient brought to [facility]. CT nic showed a left inferior division MCA infarct (read as CREDIT RISK REVIEW OFFICER on report- but this is incorrect). 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 NIHSS 6. She was admitted. 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 LDL 96. She is on Asa, lipitor 40. reports she isbetter this morning, but still confused. Neurological examination shows aphasia and partial visual field deficit. NIHSS 6. ASSESSMENT/PLAN: Acute left MCA ischemic stroke 1) Recommend completing stroke work-up including TTE and Event monitor on discharge. 2) Recommend PT/OT consults and speech therapy for aphasia 3) Continue daily anti-platelet medication (Asa) 4) Continue vascular risk factor modification. On lipitor 40. Messaged primary team with my recommendations. HPI Consult Data Date of Consult: 02/08/24 HPI Narrative HPI Narrative: POONAM VELOZ, is a 83 year old RH female with history of HTN and migraines who was LKN 02/07/2024 at 11p prior to bed. Overnight she fell but shouted to her that she was okay. On 02/07 morning, noticed that patient was confused, could not open the car door and was having trouble speaking. Patient brought to [facility]. CT nic showed a left inferior division MCA infarct (read as CREDIT RISK REVIEW OFFICER on report- but this is incorrect). 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 NIHSS 6. She was admitted. 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 She is on Asa, lipitor 40. reports she is better this morning, but still confused. [facility] Medical History (Updated 02/07/24 @ 15:[address] Jayy Vera MD) Arthritis DDD (degenerative disc disease), lumbar Environmental allergies Glaucoma Hypertension Migraines TMJ (temporomandibular joint syndrome) Home Medications amlodipine 5 mg-valsartan 160 mg-hydrochlorothiazide 12.5 mg tablet 1 tab PO QDAY 12/20/17 [History Last Taken Unknown] lactobacillus combination no.9 4 billion cell capsule (Adult 50 Plus Probiotic) 4,000 mmu cells PO QDAY 12/20/17 [History Last Taken Unknown] hydrochlorothiazide 12.5 mg capsule 12.5 mg PO DAILY 02/07/24 [History Last Taken Unknown] losartan 50 mg tablet 50 mg PO DAILY 02/07/24 [History Last Taken Unknown] meloxicam 7.5 mg tablet 7.5 mg PO DAILY 02/07/24 [History Last Taken Unknown] sertraline 50 mg tablet 50 mg PO DAILY 02/07/24 [History Last Taken Unknown] Allergy/AdvReac Type Severity Reaction Status Date / Time No Known Allergies Allergy Unverified 11/07/23 10:19 Family History (Updated 02/07/24 @ 17:[address] Jayy Vera MD) Other CVA (cerebral vascular accident) Surgical History (Updated 02/07/24 @ 17:[address] Jayy Vera MD) S/P appendectomy Social History Smoking Status: Unknown if ever smoked alcohol intake: never substance use type: does not use what type of physical activity do you participate in: walking and aerobics frequency: 3-4 times per week Vital Signs Vital Signs Vital Signs: 02/07/24 11:30 02/07/24 12:00 02/07/24 12:00 Temperature Temperature Source Pulse Rate 101 H 102 H 99 Respiratory Rate 25 H 21 H 16 Blood Pressure 108/74 117/70 126/84 H Blood Pressure Mean 85 85 98 Blood Pressure Source Blood Pressure Position Blood Pressure Location Pulse Ox 97 94 97 Oxygen Delivery Method Room Air Room Air Room Air 02/07/24 12:30 02/07/24 13:00 02/07/24 13:27 Temperature 98.0 F Temperature Source Pulse Rate 92 84 82 Respiratory Rate 12 17 17 Blood Pressure 129/1 H 128/75 H 126/81 H Blood Pressure Mean 43 92 96 Blood Pressure Source Blood Pressure Position Blood Pressure Location Pulse Ox 97 94 94 Oxygen Delivery Method Room Air Room Air 02/07/24 14:00 02/07/24 15:23 02/07/24 15:38 Temperature 97.2 F L Temperature Source Temporal Pulse Rate 85 103 H 98 Respiratory Rate 17 18 18 Blood Pressure 105/77 133/92 H 166/75 H Blood Pressure Mean 86 105 105 Blood Pressure Source Monitor Monitor Monitor Blood Pressure Position Semi-Fowlers Supine Supine Blood Pressure Location Left Arm Right Arm Right Arm Pulse Ox 100 99 98 Oxygen Delivery Method Room Air Room Air Room Air 02/07/24 15:54 02/07/24 15:41 02/07/24 17:23 Temperature 97.2 F L Temperature Source Temporal Pulse Rate 98 88 Respiratory Rate 18 15 Blood Pressure 136/76 H 122/52 H Blood Pressure Mean 96 75 Blood Pressure Source Monitor Monitor Blood Pressure Position Supine Semi-Fowlers Blood Pressure Location Right Arm Left Arm Pulse Ox 98 98 100 Oxygen Delivery Method Room Air Room Air Room Air 02/07/24 22:00 02/08/24 03:30 02/08/24 06:00 Temperature 99.5 F H 97.9 F Temperature Source Temporal Temporal Pulse Rate 88 98 85 Respiratory Rate 20 H 18 15 Blood Pressure 113/70 117/72 107/60 Blood Pressure Mean 84 87 75 Blood Pressure Source Monitor Monitor Monitor Blood Pressure Position Semi-Fowlers Semi-Fowlers Semi-Fowlers Blood Pressure Location Left Arm Left Arm Left Arm Pulse Ox 99 100 98 Oxygen Delivery Method Room Air Room Air Room Air 02/08/24 07:30 Temperature 98.6 F Temperature Source Temporal Pulse Rate 90 Respiratory Rate 16 Blood Pressure 92/82 H Blood Pressure Mean 85 Blood Pressure Source Monitor Blood Pressure Position Semi-Fowlers Blood Pressure Location Right Arm Pulse Ox 94 Oxygen Delivery Method Room Air Weight Weight: 65.969 kg Body Mass Index (BMI) 26.7 NIHSS NIHSS Nursing Documentation NIHSS Nursing Documentation: NIHSS: Ischemic Stroke/TIA Start: 02/07/24 13:25 Text: For PCU Patients: NIH and Neuro Check every 4 Status: Active hours, PRN and with change in RN caregiver. Freq: [id number] Protocol: Activity Type Activity Date Activity User E-sign Co-sign Detail Recorded Client Recorded Date Recorded By Document 02/08/24 07:30 Desktop 02/08/24 09:44 02/08/24 07:30 NIH Stroke Scale [NIHSS] A score of 0 is normal or asymptomatic . Total possible score is 42. Inpatient: RN or Physician to activate a stroke alert for onset of new stroke symptoms or with NIHSS increase >/= 3 points. Following change in neurological status, NIHSS will be performed per physician order or more frequently PRN. -1a. Level of Consciousness Alert; keenly responsive -1b. LOC Questions Answers one question correctly. -1c. LOC Commands Performs both tasks correctly . -2. Best Gaze Normal -3. Visual No visual loss -4. Facial Palsy Normal symmetrical movements -5a. Left Arm No drift; arm holds 90 (or 45 ) degrees for full 10 seconds -5b. Right Arm No drift; arm holds 90 (or 45 ) degrees for full 10 seconds -6a. Left Leg No drift; leg holds 30-degree position for full 5 seconds -6b. Right Leg No drift; leg holds 30-degree position for full 5 seconds -7. Limb Ataxia Absent -8. Sensory Normal; no sensory loss -9. Best Language Severe aphasia; -10. Dysarthria Normal -11. Extinction and Inattention No abnormality -Total 3 Query Text:A score of 0 is normal or asymptomatic. Total possible score is 42 . ED: Notify Physician for NIHSS increase by > / = 3 points. Inpatient: RN or Physician to activate a stroke alert for NIHSS increase of > / = 3 points. NIHSS 1a. Level of Consciousness: Alert; keenly responsive 1b. LOC Questions: Answers neither question correctly. 1c. LOC Commands: Performs one task correctly. 2. Best Gaze: Normal 3. Visual: Partial hemianopia 4. Facial Palsy: Normal symmetrical movements 5a. Left Arm: No drift; arm holds 90 (or 45) degrees for full 10 seconds 5b. Right Arm: No drift; arm holds 90 (or 45) degrees for full 10 seconds 6a. Left Leg: No drift; leg holds 30-degree position for full 5 seconds 6b. Right Leg: No drift; leg holds 30-degree position for full 5 seconds 7. Limb Ataxia: Absent 8. Sensory: Normal; no sensory loss 9. Best Language: Severe aphasia; 10. Dysarthria: Normal 11. Extinction and Inattention: No abnormality Total: 6 Physical Exam Neuro Neuro Narrative: Neurological examination: General: The patient appears nutritionally appropriate, well-groomed, and appears comfortable in no acute distress. Mental Status:? The patient?s mental status was alert.? Language testing showed severe aphasia, unable to name objects on stroke cards. Unable to follow simple commands.? Cranial nerves:? Visual cano suspect partial right field cut. Extra-ocular motion was intact. Face motion symmetric. There was no dysarthria. Motor: Normal strength and tone in all four extremities. No pronator drift. Sensation: Intact light touch bilaterally.? Coordination:? Bilateral finger to nose was normal.? There was no dysmetria. Gait:? deferred Lab / Micro Data 02/08/24 07:55 02/08/24 07:55 Labs: Laboratory Results - last 24 hr 02/08/24 07:55: WBC 8.2, RBC 4.03 L, Hgb 11.2 L, Hct 34.4 L, MCV 85.4, MCH 27.8, MCHC 32.6, RDW Std Deviation 43.5, RDW Coeff of Edi 13.9, Plt Count 411, MPV 8.9, Immature Gran % (Auto) 0.500, Neut % (Auto) 70.2 H, Lymph % (Auto) 20.1, Hansford % (Auto) 6.9, Eos % (Auto) 1.8, Baso % (Auto) 0.5, Absolute Neuts (auto) 5.7, Absolute Lymphs (auto) 1.64, Nucleated RBC % 0, Sodium 137, Potassium 3.8, Chloride 107, Carbon Dioxide 23.0, Anion Gap 7, BUN 16, Creatinine 0.76, Estim Creat Clear Calc 47.95, Est GFR (MDRD) Af Amer 94, Est GFR (MDRD) Non-Af 78, BUN/Creatinine Ratio 21.1 H, Glucose 106, Calcium 8.9, Triglycerides 86, Cholesterol 162, LDL Cholesterol 96, VLDL Cholesterol 17, HDL Cholesterol 49 Imaging Radiology Impression Brain MRI 02/07/24 11:18 IMPRESSION: Indications consistent with acute ischemic infarction in the posterior left temporal and parietal lobes. No evidence for associated hemorrhage. Electronically Signed: Humberto Pennington MD at 16:50 EDT Reading Location ID and State: [facility] / [place] Tel [phone], Service support , ADDENDUM: 02/07/24 1737 IMPRESSION: Indications consistent with acute ischemic infarction in the posterior left temporal and parietal lobes. No evidence for associated hemorrhage. N.B. : The above Results were Read Back by Humberto Pennington MD to Domonique Quach RN, and understanding confirmed on 02/07/2024 17:30:49 (ET). Electronically Signed: Humberto Pennington MD at 16:50 EDT Reading Location ID and State: [address] [place] [address] Tel , Service support , Carotid Duplex 02/07/24 11:25 Interpretation Summary Severe (>70%) stenosis right extracranial internal carotid. Normal left extracranial internal carotid. Patent and antegrade vertebrals bilaterally. Ordering Physician: Jayy Vera Performed By: Alfredo Pinto, RVT Active Medications Active Medications Active Medications: Current Medications Generic Name Dose Route Start Last Admin Trade Name Freq PRN Reason Stop Dose Admin Aspirin 81 mg 02/08/24 08:00 02/08/24 10:02 Aspirin 81 Mg Tab.Chew PO 81 mg BREAKFAST GEORGIE Administration Atorvastatin Calcium 40 mg 02/07/24 22:00 02/07/24 21:55 Atorvastatin Calcium 40 Mg Tablet PO 40 mg QHS GEORGIE Administration Sertraline HCl 50 mg 02/08/24 10:00 02/08/24 10:02 Sertraline 50 Mg Tablet PO 50 mg DAILY GEORGIE Administration Sodium Chloride 10 - 40 ml 02/07/24 13:39 0.9% Saline Lock 10 Ml Syringe IV UD PRN SALINE FLUSH 02/08/24 1118 <Electronically signed by Lien Corona MD> Cosigner Signature (if applicable): CC: Dr. Clyde Downing MD~ Signed [facility] Work Phone: 1(426) 872-149705-07-2024 History and physical note Author Jayy Vera [facility] February 07, 2024 5:21pm Note Date/Time February 07, 2024 11:26a m [facility] Medical Records Department [address] [place] [address] H&P Exam - Hospitalist 02/07/24 1126 MR#: [id number] Acct: [id number] Name: POONAM VELOZ Rep #:[id number] : 1940 83 From: Jayy gamboa MD PCP: Dr. Clyde Downing MD Status:ADM I N Location: ICU ICU06-1 HPI - General General Date of Admission: 02/07/24 HPI Narrative POONAM VELOZ, is a 83 F who presents to the hospital with signs and symptoms concerning for stroke. Her last known well was last night at 11 PM when she went to bed with her . This morning she was acting confused and was not doing her normal tasks appropriately. He presented to the PCPs office who recommended that he bring her to the emergency room. In the ER CT of the brain demonstrated a left parietal stroke and the head and neck CTA demonstrated a right ICA stenosis of 50 to 69%. MRI is currently pending. She does have an NIH of approximately 6 in the ER. [facility] Medical History (Updated 02/07/24 @ 15:[address] Jayy Vera MD) Arthritis DDD (degenerative disc disease), lumbar Environmental allergies Glaucoma Hypertension Migraines TMJ (temporomandibular joint syndrome) Home Medications amlodipine 5 mg-valsartan 160 mg-hydrochlorothiazide 12.5 mg tablet 1 tab PO QDAY 12/20/17 [History Last Taken Unknown] lactobacillus combination no.9 4 billion cell capsule (Adult 50 Plus Probiotic) 4,000 mmu cells PO QDAY 12/20/17 [History Last Taken Unknown] hydrochlorothiazide 12.5 mg capsule 12.5 mg PO DAILY 02/07/24 [History Last Taken Unknown] losartan 50 mg tablet 50 mg PO DAILY 02/07/24 [History Last Taken Unknown] meloxicam 7.5 mg tablet 7.5 mg PO DAILY 02/07/24 [History Last Taken Unknown] sertraline 50 mg tablet 50 mg PO DAILY 02/07/24 [History Last Taken Unknown] Allergy/AdvReac Type Severity Reaction Status Date / Time No Known Allergies Allergy Unverified 11/07/23 10:19 Family History (Updated 02/07/24 @ 17:[address] Jayy Vera MD) Other CVA (cerebral vascular accident) Surgical History (Updated 02/07/24 @ 17:[address] Jayy Vera MD) S/P appendectomy Social History Smoking Status: Never smoker alcohol intake: never substance use type: does not use what type of physical activity do you participate in: walking and aerobics frequency: 3-4 times per week ROS Constitutional Constitutional: Denies chills, fatigue, fever(s) or malaise Eyes Eyes: Denies blurry vision ENT HEENT: Denies headache(s) or nasal discharge Cardiovascular Cardiovascular: Denies chest pain, dyspnea on exertion or syncope Respiratory/Chest Respiratory/Chest: Denies cough, shortness of breath at rest or shortness of breath with exertion Gastrointestinal Gastrointestinal: Denies constipation, diarrhea, nausea or vomiting Genitourinary Genitourinary: Denies dysuria Neurologic Neurologic: Reports abnormal speech; Denies focal weakness, numbness or tremor(s) Psychiatric Psychiatric: Denies anxiety or depression Vital Signs Vital Signs Vital Signs: 02/07/24 09:34 02/07/24 09:36 02/07/24 09:44 Temperature 97.8 F 97.8 F Temperature Source Temporal Temporal Pulse Rate 99 99 Respiratory Rate 16 18 Blood Pressure 106/92 H 106/92 H Blood Pressure Mean 96 96 Pulse Ox 100 99 99 Oxygen Delivery Method Room Air Room Air Room Air 02/07/24 09:51 02/07/24 10:20 02/07/24 10:20 Temperature Temperature Source Pulse Rate 95 95 95 Respiratory Rate 15 14 16 Blood Pressure 148/84 H 121/87 H 121/97 H Blood Pressure Mean 105 98 105 Pulse Ox 99 97 97 Oxygen Delivery Method Room Air Room Air Room Air 02/07/24 10:51 Temperature Temperature Source Pulse Rate 101 H Respiratory Rate 19 H Blood Pressure 120/101 H Blood Pressure Mean 107 Pulse Ox 95 Oxygen Delivery Method Room Air Weight Weight: 144 lb 13.499 oz Body Mass Index (BMI) 26.4 Physical Exam Narrative General: Alert, unable to evaluate orientation, Cooperative, No apparent distress HEENT: Atraumatic, PERRLA, EOMI, Normocephalic Oral: Moist Mucosa Neck: Supple, No JVD Lungs: Diminished, Normal air movement, No rhonchi, No wheeze, No rales Cardiovascular: Regular rate, Regular Rhythm, Normal S1, Normal S2, No murmurs Abdomen: Soft, Non Tender, Non-Distended, No Hepato-splenomegaly Extremities: No edema, Capillary Refill Less than 3 Seconds Skin: No rashes, No breakdown Musculoskeletal: No Tenderness to Palpation of Joints or Extremities Neurological: Aphasia, Motor Exam 5/5 strength throughout, Sensory exam intact to light touch and pain, NIH of 5-6, limited by the fact that she has difficultyfollowing commands Psych/Mental Status: Normal Affect, Appropriate Results Lab / Micro Data 02/07/24 09:35 02/07/24 09:35 Labs: Laboratory Results - last 24 hr 02/07/24 09:35: WBC 8.7, RBC 4.19 L, Hgb 11.8 L, Hct 36.0 L, MCV 85.9, MCH 28.2,MCHC 32.8, RDW Std Deviation 44.7 H, RDW Coeff of Edi 14.1, Plt Count 410, MPV 8.8, Immature Gran % (Auto) 0.300, Neut % (Auto) 75.3 H, Lymph % (Auto) 14.7 L, Hansford % (Auto) 6.3, Eos % (Auto) 2.8, Baso % (Auto) 0.6, Absolute Neuts (auto) 6.6, Absolute Lymphs (auto) 1.28, Nucleated RBC % 0, PT 14.3, INR 1.1, APTT 38.9H, Sodium 138, Potassium 3.6, Chloride 106, Carbon Dioxide 24.0, Anion Gap 8, BUN 25 H, Creatinine 0.95, Estim Creat Clear Calc 41.31, Est GFR (MDRD) Af Amer 72, Est GFR (MDRD) Non-Af 60, BUN/Creatinine Ratio 26.2 H, Glucose 153 H, Calcium 9.5, Troponin I High Sens 18 02/07/24 09:38: POC Glucose 135 H Imaging Radiology Impression Brain CT 02/07/24 09:38 IMPRESSION: Findings suggestive of acute ischemic changes involving the posterior left temporal parietal occipital lobes in the distribution of the left posterior cerebral artery. N.B. : The above Results were Read Back by Justino Zuniga MD to Anselmo Potts and understanding confirmed on 02/07/2024 10:00:00 (ET). Electronically Signed: Justino Zuniga MD at 10:01 EDT , ADDENDUM: 02/07/24 1008 IMPRESSION: Findings suggestive of acute ischemic changes involving the posterior left temporal parietal occipital lobes in the distribution of the left posterior cerebral artery. N.B. : The above Results were Read Back by Justino Zuniga MD to Anselmo Potts and understanding confirmed on 02/07/2024 10:00:00 (ET). Electronically Signed: Justino Zuniga MD at 10:01 EDT , Head/Neck CTA 02/07/24 09:43 IMPRESSION: There is 50-69% stenosis at the origin of the right internal carotid artery and less than 50% stenosis at the origin of the left internal carotid artery. Decreased flow to the left posterior parietal occipital lobes. N.B. : The above Results were Read Back by Justino Zuniga MD to Anselmo Potts and understanding confirmed on 02/07/2024 10:06:13 (ET). Electronically Signed: Justino Zuniga MD at 10:07 EDT , ADDENDUM: 02/07/24 1014 IMPRESSION: There is 50-69% stenosis at the origin of the right internal carotid artery and less than 50% stenosis at the origin of the left internal carotid artery. Decreased flow to the left posterior parietal occipital lobes. N.B. : The above Results were Read Back by Justino Zuniga MD to Anselmo Potts and understanding confirmed on 02/07/2024 10:06:13 (ET). Electronically Signed: Justino Zuniga MD at 10:07 EDT , Chest X-Ray 02/07/24 10:30 IMPRESSION: No acute abnormality is seen. Electronically Signed: Justino Zuniga MD at 10:43 EDT , Assessment & Plan Assessment/Plan (1) CVA (cerebral vascular accident): PLAN: Plan 1. Acute CVA ? MRI is pending, will consult neurology ? Will continue with the stroke protocol ? Will allow for permissive hypertension ? PT/OT as well as speech therapy given her aphasia ? CTA of the head and neck demonstrated a 50 to 69% stenosis in the right internal carotid artery therefore we will proceed with a carotid duplex 2. Essential HTN ? Will hold her blood pressure medication secondary to permissive hypertension ? Can restart in 24 to 48 hours ? In the meantime she will have as needed medications available for the stroke protocol 3. Anxiety/depression ? Stable ? Continue with Zoloft DVT: SCDs 75 minutes was spent on direct patient care, including documentation as well as chart review and collaboration with colleagues Charges/Coding Visit Charges Inpatient E&M: 57263 Init Hosp L3 02/07/24 1721 <Electronically signed by Jayy Vera MD> Cosigner Signature (if applicable): CC: Dr. Jayy Vera MD; Dr. Clyde Downing MD~ Signed [facility] Work Phone: 1(467) 935-316805-07-2024 Discharge summary Author Anselmo Potts [facility] February 07, 2024 12:29pm Note Date/Time February 07, 2024 9:42am [facility] Medical Records Department [address] [place] [address] Emergency Department Summary 02/07/24 MR#: [id number] Acct: [id number] Name: POONAM VELOZ Rep #:[id number] : 1940 83 From: Anselmo Potts DO PCP: Dr. Clyde Downing MD Status:REG E R Location: ED HPI History of Present Illness Chief Complaint: Stroke Alert Narrative Narrative: 83-year-old female presenting with confusion. Patient went to see Dr. Montgomerytoriana as her states she was not acting right. Dr. Montgomery referred him to the emergency room however the did not want to go by ambulance and he brought her by car. Her states that last night at 11 PM when they went to bed she was normal. Overnight he heard her get up and use the restroom a couple of times and he thought he heard something fall. He shouted out to her and she stated to him that she was fine. Her back to sleep. He states that last night she set the alarm for the house and this morning he noted that she could not turn it off. She tried to get in the car on the way [facility] physician's office and could not open the door. She is been having trouble communicating and following commands. Patient's states that about a week ago she had a tick bite and she remove the tick herself. She stated to himthat she removed it completely. She has not had any abnormal symptoms, fevers since then. He does state that she seemed to be short of breath this weekend but then she started she felt better. They did not get seen for this. [facility] Medical History Arthritis DDD (degenerative disc disease), lumbar Environmental allergies Glaucoma Hypertension Migraines TMJ (temporomandibular joint syndrome) Home Medications amlodipine 5 mg-valsartan 160 mg-hydrochlorothiazide 12.5 mg tablet 1 tab PO QDAY 12/20/17 [History Last Taken Unknown] lactobacillus combination no.9 4 billion cell capsule (Adult 50 Plus Probiotic) 4,000 mmu cells PO QDAY 12/20/17 [History Last Taken Unknown] hydrochlorothiazide 12.5 mg capsule 12.5 mg PO DAILY 02/07/24 [History Last Taken Unknown] losartan 50 mg tablet 50 mg PO DAILY 02/07/24 [History Last Taken Unknown] meloxicam 7.5 mg tablet 7.5 mg PO DAILY 02/07/24 [History Last Taken Unknown] sertraline 50 mg tablet 50 mg PO DAILY 02/07/24 [History Last Taken Unknown] Allergy/AdvReac Type Severity Reaction Status Date / Time No Known Allergies Allergy Unverified 11/07/23 10:19 Social History Smoking Status: Never smoker alcohol intake: never substance use type: does not use what type of physical activity do you participate in: walking and aerobics frequency: 3-4 times per week ROS ROS ED Review of Systems ROS Unobtainable: due to mental condition EXAM Physical Exam Const Vital Signs: 02/07/24 09:34 02/07/24 09:36 02/07/24 09:44 Temperature 97.8 F 97.8 F Temperature Source Temporal Temporal Pulse Rate 99 99 Respiratory Rate 16 18 Blood Pressure 106/92 H 106/92 H Blood Pressure Mean 96 96 Pulse Ox 100 99 99 Oxygen Delivery Method Room Air Room Air Room Air 02/07/24 09:51 02/07/24 10:20 02/07/24 10:20 Temperature Temperature Source Pulse Rate 95 95 95 Respiratory Rate 15 14 16 Blood Pressure 148/84 H 121/87 H 121/97 H Blood Pressure Mean 105 98 105 Pulse Ox 99 97 97 Oxygen Delivery Method Room Air Room Air Room Air 02/07/24 10:51 02/07/24 11:30 02/07/24 11:00 Temperature Temperature Source Pulse Rate 101 H 101 H 94 Respiratory Rate 19 H 25 H 18 Blood Pressure 120/101 H 108/74 114/81 H Blood Pressure Mean 107 85 92 Pulse Ox 95 97 97 Oxygen Delivery Method Room Air Room Air Room Air 02/07/24 12:00 02/07/24 12:00 Temperature Temperature Source Pulse Rate 102 H 99 Respiratory Rate 21 H 16 Blood Pressure 117/70 126/84 H Blood Pressure Mean 85 98 Pulse Ox 94 97 Oxygen Delivery Method Room Air Room Air Positive well nourished General Appearance ED: NAD HEENT Reports moist mucous membranes Eyes PERRL and EOMs intact bilaterally Chest Wall inspection of chest normal and palpation of chest normal Resp normal respiratory effort and clear to auscultation bilaterally Auscultation: Negative for rales, rhonchi or wheezes GI normal to inspection, nondistended, normoactive bowel sounds Extremity normal to inspection Neuro CN's II-XII intact bilaterally and no sensory deficits noted Neuro Narrative: Confused Psych Psych Narrative: Confused Skin no wounds NIHSS NIHSS Initial: 1a Level of Consciousness: 0 1b LOC Questions (Score 2 if aphasic/stupor): 2 1c LOC Commands (Only score 1st attempt): 1 2 Best Gaze (If aphasic, use reflexive mvmts.): 0 3 Visual: 0 4 Facial Palsy: 0 5 Motor Arm Right (UN = amputation/fusion): 0 5 Motor Arm Left: 0 6 Motor Leg Right: 0 6 Motor Leg Left: 0 7 Limb ataxia (Only + if out of proportion): 0 8 Sensory (Aphasia/stupor=0 or 1, coma=2): 0 9 Best Language: 2 10 Dysarthria (mute, coma=2, intubated=UN): 0 11 Extinction and Inattention (only scored if +): 1 Total Score: 6 MDM MDM MDM Narrative Medical decision making narrative: Patient presenting with strokelike symptoms. NIH stroke scale score is 6. She is not within the window for tPA. Stroke team was called because she would be in the window if she had an LVO. Patient taken to CT CT brain was interpreted Findings suggestive of acute ischemic changes involving the posterior left temporal parietal occipital lobes in the distribution of the left posterior cerebral artery. CBC and BMP were unremarkable. High-sensitivity opponent is 18. EKG on my interpretation is sinus rhythm at 94 bpm without sign ischemic change or dysrhythmia. Chest x-ray my interpretation did not show any acute process. CTA was negative for LVO. Discussed the acute stroke findings with the neurologist Dr. Child. He stated that the patient can stay here for the rest of the workup. Discussed with the . Patient was given aspirin.. Request was made for me to order the MRI in the emergency room so they can be done on the way up to the floor. This was ordered. Patient in stable condition. Impression: 1. Acute CVA Lab Data Attestation: I reviewed the patient's lab results. Labs: Laboratory Results - last 24 hr 02/07/24 02/07/24 09:35 09:38 WBC 8.7 RBC 4.19 L Hgb 11.8 L Hct 36.0 L MCV 85.9 MCH 28.2 MCHC 32.8 RDW Std Deviation 44.7 H RDW Coeff of Edi 14.1 Plt Count 410 MPV 8.8 Immature Gran % (Auto) 0.300 Neut % (Auto) 75.3 H Lymph % (Auto) 14.7 L Hansford % (Auto) 6.3 Eos % (Auto) 2.8 Baso % (Auto) 0.6 Absolute Neuts (auto) 6.6 Absolute Lymphs (auto) 1.28 Nucleated RBC % 0 PT 14.3 INR 1.1 APTT 38.9 H Sodium 138 Potassium 3.6 Chloride 106 Carbon Dioxide 24.0 Anion Gap 8 BUN 25 H Creatinine 0.95 Estim Creat Clear Calc 41.31 Est GFR (MDRD) Af Amer 72 Est GFR (MDRD) Non-Af 60 BUN/Creatinine Ratio 26.2 H Glucose 153 H Calcium 9.5 Troponin I High Sens 18 POC Glucose 135 H Radiography Diagnostic Testing: Clinical Impression(s) from Imaging Studies Brain CT 02/07/24 09:38 IMPRESSION: Findings suggestive of acute ischemic changes involving the posterior left temporal parietal occipital lobes in the distribution of the left posterior cerebral artery. N.B. : The above Results were Read Back by Justino Zuniga MD to Anselmo Potts and understanding confirmed on 02/07/2024 10:00:00 (ET). Electronically Signed: Justino Zuniga MD at 10:01 EDT , ADDENDUM: 02/07/24 1008 IMPRESSION: Findings suggestive of acute ischemic changes involving the posterior left temporal parietal occipital lobes in the distribution of the left posterior cerebral artery. N.B. : The above Results were Read Back by Justino Zuniga MD to Anselmo Potts and understanding confirmed on 02/07/2024 10:00:00 (ET). Electronically Signed: Justino Zuniga MD at 10:01 EDT , Head/Neck CTA 02/07/24 09:43 IMPRESSION: There is 50-69% stenosis at the origin of the right internal carotid artery and less than 50% stenosis at the origin of the left internal carotid artery. Decreased flow to the left posterior parietal occipital lobes. N.B. : The above Results were Read Back by Justino Zuniga MD to Anselmo Potts and understanding confirmed on 02/07/2024 10:06:13 (ET). Electronically Signed: Justino Zuniga MD at 10:07 EDT , ADDENDUM: 02/07/24 1014 IMPRESSION: There is 50-69% stenosis at the origin of the right internal carotid artery and less than 50% stenosis at the origin of the left internal carotid artery. Decreased flow to the left posterior parietal occipital lobes. N.B. : The above Results were Read Back by Justino Zuniga MD to Anselmo Potts and understanding confirmed on 02/07/2024 10:06:13 (ET). Electronically Signed: Justino Zuniga MD at 10:07 EDT , Chest X-Ray 02/07/24 10:30 IMPRESSION: No acute abnormality is seen. Electronically Signed: Justino Zuniga MD at 10:43 EDT , Discharge Plan Triage Chief Complaint: Stroke Alert ED Provider: Anselmo Potts Dx/Rx/DC Orders Prescriptions: No Action cuuxbvnyex-ltqbwkegh-sfoxddyvm 5-160-12.5 mg tablet 1 tab PO QDAY lactobacillus combination no.9 [Adult 50 Plus Probiotic] 4 billion cell capsule 4,000 mmu cells PO QDAY losartan 50 mg tablet 50 mg PO DAILY meloxicam 7.5 mg tablet 7.5 mg PO DAILY hydrochlorothiazide 12.5 mg capsule 12.5 mg PO DAILY sertraline 50 mg tablet 50 mg PO DAILY Primary Care Provider: Clyde Downing Referrals: Clyde Downing MD [Primary Care Provider] - What to do if you have Problems For any increased pain, shortness of breath, bleeding, nausea or vomiting, chestpain, or any unexpected problems, contact your Primary Care Provider. Call [facility] ([phone]) or report to the closest Emergency Room. Call 911 if necessary. 02/07/24 1229 <Electronically signed by Anselmo Potts DO> Cosigner Signature (if applicable): CC: Dr. Clyde Downing MD ~ Signed [facility] Work Phone: 1(928) 619-827705-07-2024 Discharge summary Author [facility] February 07, 2024 12:29pm Note Date/Time February 07, 2024 9:42am [facility] Medical Records Department [address] [place] [address] Emergency Department Summary 02/07/24 MR#: [id number] Acct: [id number] Name: POONAM VELOZ Rep #:[id number] : 1940 83 From: Anselmo Potts DO PCP: Dr. Clyde Downing MD Status:REG E R Location: ED HPI History of Present Illness Chief Complaint: Stroke Alert Narrative Narrative: 83-year-old female presenting with confusion. Patient went to see Dr. Montgomerytoday as her states she was not acting right. Dr. Montgomery referred him to the emergency room however the did not want to go by ambulance and he brought her by car. Her states that last night at 11 PM when they went to bed she was normal. Overnight he heard her get up and use the restroom a couple of times and he thought he heard something fall. He shouted out to her and she stated to him that she was fine. Her back to sleep. He states that last night she set the alarm for the house and this morning he noted that she could not turn it off. She tried to get in the car on the way tothe physician's office and could not open the door. She is been having trouble communicating and following commands. Patient's states that about a week ago she had a tick bite and she remove the tick herself. She stated to himthat she removed it completely. She has not had any abnormal symptoms, fevers since then. He does state that she seemed to be short of breath this weekend but then she started she felt better. They did not get seen for this. [facility] Medical History Arthritis DDD (degenerative disc disease), lumbar Environmental allergies Glaucoma Hypertension Migraines TMJ (temporomandibular joint syndrome) Home Medications amlodipine 5 mg-valsartan 160 mg-hydrochlorothiazide 12.5 mg tablet 1 tab PO QDAY 12/20/17 [History Last Taken Unknown] lactobacillus combination no.9 4 billion cell capsule (Adult 50 Plus Probiotic) 4,000 mmu cells PO QDAY 12/20/17 [History Last Taken Unknown] hydrochlorothiazide 12.5 mg capsule 12.5 mg PO DAILY 02/07/24 [History Last Taken Unknown] losartan 50 mg tablet 50 mg PO DAILY 02/07/24 [History Last Taken Unknown] meloxicam 7.5 mg tablet 7.5 mg PO DAILY 02/07/24 [History Last Taken Unknown] sertraline 50 mg tablet 50 mg PO DAILY 02/07/24 [History Last Taken Unknown] Allergy/AdvReac Type Severity Reaction Status Date / Time No Known Allergies Allergy Unverified 11/07/23 10:19 Social History Smoking Status: Never smoker alcohol intake: never substance use type: does not use what type of physical activity do you participate in: walking and aerobics frequency: 3-4 times per week ROS ROS ED Review of Systems ROS Unobtainable: due to mental condition EXAM Physical Exam Const Vital Signs: 02/07/24 09:34 02/07/24 09:36 02/07/24 09:44 Temperature 97.8 F 97.8 F Temperature Source Temporal Temporal Pulse Rate 99 99 Respiratory Rate 16 18 Blood Pressure 106/92 H 106/92 H Blood Pressure Mean 96 96 Pulse Ox 100 99 99 Oxygen Delivery Method Room Air Room Air Room Air 02/07/24 09:51 02/07/24 10:20 02/07/24 10:20 Temperature Temperature Source Pulse Rate 95 95 95 Respiratory Rate 15 14 16 Blood Pressure 148/84 H 121/87 H 121/97 H Blood Pressure Mean 105 98 105 Pulse Ox 99 97 97 Oxygen Delivery Method Room Air Room Air Room Air 02/07/24 10:51 02/07/24 11:30 02/07/24 11:00 Temperature Temperature Source Pulse Rate 101 H 101 H 94 Respiratory Rate 19 H 25 H 18 Blood Pressure 120/101 H 108/74 114/81 H Blood Pressure Mean 107 85 92 Pulse Ox 95 97 97 Oxygen Delivery Method Room Air Room Air Room Air 02/07/24 12:00 02/07/24 12:00 Temperature Temperature Source Pulse Rate 102 H 99 Respiratory Rate 21 H 16 Blood Pressure 117/70 126/84 H Blood Pressure Mean 85 98 Pulse Ox 94 97 Oxygen Delivery Method Room Air Room Air Positive well nourished General Appearance ED: NAD HEENT Reports moist mucous membranes Eyes PERRL and EOMs intact bilaterally Chest Wall inspection of chest normal and palpation of chest normal Resp normal respiratory effort and clear to auscultation bilaterally Auscultation: Negative for rales, rhonchi or wheezes GI normal to inspection, nondistended, normoactive bowel sounds Extremity normal to inspection Neuro CN's II-XII intact bilaterally and no sensory deficits noted Neuro Narrative: Confused Psych Psych Narrative: Confused Skin no wounds NIHSS NIHSS Initial: 1a Level of Consciousness: 0 1b LOC Questions (Score 2 if aphasic/stupor): 2 1c LOC Commands (Only score 1st attempt): 1 2 Best Gaze (If aphasic, use reflexive mvmts.): 0 3 Visual: 0 4 Facial Palsy: 0 5 Motor Arm Right (UN = amputation/fusion): 0 5 Motor Arm Left: 0 6 Motor Leg Right: 0 6 Motor Leg Left: 0 7 Limb ataxia (Only + if out of proportion): 0 8 Sensory (Aphasia/stupor=0 or 1, coma=2): 0 9 Best Language: 2 10 Dysarthria (mute, coma=2, intubated=UN): 0 11 Extinction and Inattention (only scored if +): 1 Total Score: 6 MDM MDM MDM Narrative Medical decision making narrative: Patient presenting with strokelike symptoms. NIH stroke scale score is 6. She is not within the window for tPA. Stroke team was called because she would be in the window if she had an LVO. Patient taken to CT CT brain was interpreted Findings suggestive of acute ischemic changes involving the posterior left temporal parietal occipital lobes in the distribution of the left posterior cerebral artery. CBC and BMP were unremarkable. High-sensitivity opponent is 18. EKG on my interpretation is sinus rhythm at 94 bpm without sign ischemic change or dysrhythmia. Chest x-ray my interpretation did not show any acute process. CTA was negative for LVO. Discussed the acute stroke findings with the neurologist Dr. Child. He stated that the patient can stay here for the rest of the workup. Discussed with the . Patient was given aspirin.. Request was made for me to order the MRI in the emergency room so they can be done on the way up to the floor. This was ordered. Patient in stable condition. Impression: 1. Acute CVA Lab Data Attestation: I reviewed the patient's lab results. Labs: Laboratory Results - last 24 hr 02/07/24 02/07/24 09:35 09:38 WBC 8.7 RBC 4.19 L Hgb 11.8 L Hct 36.0 L MCV 85.9 MCH 28.2 MCHC 32.8 RDW Std Deviation 44.7 H RDW Coeff of Edi 14.1 Plt Count 410 MPV 8.8 Immature Gran % (Auto) 0.300 Neut % (Auto) 75.3 H Lymph % (Auto) 14.7 L Hansford % (Auto) 6.3 Eos % (Auto) 2.8 Baso % (Auto) 0.6 Absolute Neuts (auto) 6.6 Absolute Lymphs (auto) 1.28 Nucleated RBC % 0 PT 14.3 INR 1.1 APTT 38.9 H Sodium 138 Potassium 3.6 Chloride 106 Carbon Dioxide 24.0 Anion Gap 8 BUN 25 H Creatinine 0.95 Estim Creat Clear Calc 41.31 Est GFR (MDRD) Af Amer 72 Est GFR (MDRD) Non-Af 60 BUN/Creatinine Ratio 26.2 H Glucose 153 H Calcium 9.5 Troponin I High Sens 18 POC Glucose 135 H Radiography Diagnostic Testing: Clinical Impression(s) from Imaging Studies Brain CT 02/07/24 09:38 IMPRESSION: Findings suggestive of acute ischemic changes involving the posterior left temporal parietal occipital lobes in the distribution of the left posterior cerebral artery. N.B. : The above Results were Read Back by Justino Zuniga MD to Anselmo Potts and understanding confirmed on 02/07/2024 10:00:00 (ET). Electronically Signed: Justino Zuniga MD at 10:01 EDT , ADDENDUM: 02/07/24 1008 IMPRESSION: Findings suggestive of acute ischemic changes involving the posterior left temporal parietal occipital lobes in the distribution of the left posterior cerebral artery. N.B. : The above Results were Read Back by Justino Zuniga MD to Anselmo Potts and understanding confirmed on 02/07/2024 10:00:00 (ET). Electronically Signed: Justino Zuniga MD at 10:01 EDT , Head/Neck CTA 02/07/24 09:43 IMPRESSION: There is 50-69% stenosis at the origin of the right internal carotid artery and less than 50% stenosis at the origin of the left internal carotid artery. Decreased flow to the left posterior parietal occipital lobes. N.B. : The above Results were Read Back by Justino Zuniga MD to Anselmo Potts and understanding confirmed on 02/07/2024 10:06:13 (ET). Electronically Signed: Justino Zuniga MD at 10:07 EDT , ADDENDUM: 02/07/24 1014 IMPRESSION: There is 50-69% stenosis at the origin of the right internal carotid artery and less than 50% stenosis at the origin of the left internal carotid artery. Decreased flow to the left posterior parietal occipital lobes. N.B. : The above Results were Read Back by Justino Zuniga MD to Anselmo Potts and understanding confirmed on 02/07/2024 10:06:13 (ET). Electronically Signed: Justino Zuniga MD at 10:07 EDT , Chest X-Ray 02/07/24 10:30 IMPRESSION: No acute abnormality is seen. Electronically Signed: Justino Zuniga MD at 10:43 EDT , Discharge Plan Triage Chief Complaint: Stroke Alert ED Provider: Anselmo Potts Dx/Rx/DC Orders Prescriptions: No Action hymemhcipz-vgysoimio-ryqjnomqe 5-160-12.5 mg tablet 1 tab PO QDAY lactobacillus combination no.9 [Adult 50 Plus Probiotic] 4 billion cell capsule 4,000 mmu cells PO QDAY losartan 50 mg tablet 50 mg PO DAILY meloxicam 7.5 mg tablet 7.5 mg PO DAILY hydrochlorothiazide 12.5 mg capsule 12.5 mg PO DAILY sertraline 50 mg tablet 50 mg PO DAILY Primary Care Provider: Clyde Downing Referrals: Clyde Downing MD [Primary Care Provider] - What to do if you have Problems For any increased pain, shortness of breath, bleeding, nausea or vomiting, chestpain, or any unexpected problems, contact your Primary Care Provider. Call [facility] ([phone]) or report to the closest Emergency Room. Call 911 if necessary. 02/07/24 1229 <Electronically signed by Anselmo Potts DO> Cosigner Signature (if applicable): CC: Dr. Clyde Downing MD ~ Signed [facility] Work Phone: Discharge summary Author Jayy Vera [facility] February 08, 2024 6:35pm Note Date/Time February 08, 2024 6:26pm [facility] Medical Records Department [address] [place] [address] Discharge Summary 02/08/24 1824 MR#: [id number] Acct: [id number] Name: POONAM VELOZ Rep #:[id number] : 1940 83 From: Jayy gamboa MD PCP: Dr. Clyde Downing MD Status:ADM I N Location: ICU [place] [address] Providers Date of Admission: 02/07/24 Primary Care Physician: Dr. Clyde Downing MD Consultations 02/07/24 13:25 Consult: Tele-Neurology Routine Consulting Provider: [facility] Reason for Consult: Acute Ischemic Stroke/TIA EMERGENT Consult: No MD Notified: Yes Date Notified: 02/07/24 Time Notified: 11:21 Method of Notification: ED Physician Initiated Nursing Unit Staff Notify [facility] of Tele-Neurology Consult: Yes Reason For Visit: CVA Diagnosis Discharge Diagnosis (1) CVA (cerebral vascular accident): Status: Acute Code(s): I63.9 - Cerebral infarction, unspecified Medications at Discharge Home Medications hydrochlorothiazide 12.5 mg capsule 12.5 mg PO DAILY 02/07/24 losartan 50 mg tablet 50 mg PO DAILY 02/07/24 meloxicam 7.5 mg tablet 7.5 mg PO DAILY 02/07/24 sertraline 50 mg tablet 50 mg PO DAILY 02/07/24 aspirin 81 mg chewable tablet 81 mg PO BREAKFAST 30 days #30 tabs 02/08/24 atorvastatin 40 mg tablet 40 mg PO QHS 30 days #30 tabs 02/08/24 Hospital Course Operations None Procedures 2-D Echocardiogram Summary of Care Provided Minutes Spent on Discharge: 40 Hospital Course: Per HPI: POONAM VELOZ, is a 83 F who presents to the hospital with signs and symptoms concerning for stroke. Her last known well was last night at 11 PM whenshe went to bed with her . This morning she was acting confused and was not doing her normal tasks appropriately. He presented to the PCPs office who recommended that he bring her to the emergency room. In the ER CT of the brain demonstrated a left parietal stroke and the head and neck CTA demonstrated a right ICA stenosis of 50 to 69%. MRI is currently pending. She does have an NIH of approximately 6 in the ER. Hospital Course: 1. 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 She was outside the thrombolytic window. CVA was actually visible on the CT scan and confirmed withthe MRI of the brain. She also had a CT of the head and neck which did demonstrate a 50 to 69% stenosis of the right internal carotid artery so carotidDoppler was obtained which demonstrated this was greater than 70%. She was started on statin as well as an aspirin. She has not had significant improvement in her symptoms but she has not had any worsening either. She does have a little bit of extinction. She was evaluated by speech therapy and she does not have any swallowing defects but will need speech therapy as an outpatient. She does not have any physical or occupational therapy needs at this time. Appreciate neurology's assistance. Will discharge her with an eventmonitor. She did have an echo on the day of discharge which was unremarkable for esdyv-jn-vfuw shunt. I discussed with the family the plan for discharge today expressed understanding of the risk benefits of going home and would like to go today. She will need to follow-up with her PCP within 1 week and I also have her scheduled to follow-up with the vascular surgeon for evaluation of the right carotid artery, since it is contralateral to the lesion is not of an emergent need at this time. She can resume her home blood pressure medications tomorrow without any changes. Physical Exam Narrative General: Alert, unable to evaluate orientation, Cooperative, No apparent distress HEENT: Atraumatic, PERRLA, EOMI, Normocephalic Oral: Moist Mucosa Neck: Supple, No JVD Lungs: Diminished, Normal air movement, No rhonchi, No wheeze, No rales Cardiovascular: Regular rate, Regular Rhythm, Normal S1, Normal S2, No murmurs Abdomen: Soft, Non Tender, Non-Distended, No Hepato-splenomegaly Extremities: No edema, Capillary Refill Less than 3 Seconds Skin: No rashes, No breakdown Musculoskeletal: No Tenderness to Palpation of Joints or Extremities Neurological: Aphasia, Motor Exam 5/5 strength throughout, Sensory exam intact to light touch and pain, NIH of 5-6, limited by the fact that she has difficultyfollowing commands Psych/Mental Status: Normal Affect, Appropriate Weight / BMI Weight Weight: 145 lb 7 oz Body Mass Index (BMI) 26.7 ABG / Lab / Microbiology Data 02/08/24 07:55 02/08/24 07:55 Laboratory: Laboratory Results - last 24 hr 02/08/24 07:55: WBC 8.2, RBC 4.03 L, Hgb 11.2 L, Hct 34.4 L, MCV 85.4, MCH 27.8,MCHC 32.6, RDW Std Deviation 43.5, RDW Coeff of Edi 13.9, Plt Count 411, MPV 8.9, Immature Gran % (Auto) 0.500, Neut % (Auto) 70.2 H, Lymph % (Auto) 20.1, Hansford % (Auto) 6.9, Eos % (Auto) 1.8, Baso % (Auto) 0.5, Absolute Neuts (auto) 5.7, Absolute Lymphs (auto) 1.64, Nucleated RBC % 0, Sodium 137, Potassium 3.8, Chloride 107, Carbon Dioxide 23.0, Anion Gap 7, BUN 16, Creatinine 0.76, Estim Creat Clear Calc 47.95, Est GFR (MDRD) Af Amer 94, Est GFR (MDRD) Non-Af 78, BUN/Creatinine Ratio 21.1 H, Glucose 106, Calcium 8.9, Triglycerides 86, Cholesterol 162, LDL Cholesterol 96, VLDL Cholesterol 17, HDL Cholesterol 49 Radiography Diagnostic Testing: Radiology Impression Echocardiogram 02/08/24 11:25 Interpretation Summary Normal LV size. Left ventricular systolic function is normal. The left ventricular ejection fraction is 70 %. Mild (1+) tricuspid valve insufficiency. Pulmonary artery systolic pressure is 42 mmHg. Bubble contrast study negative for right to left interatrial shunt. Ordering Physician: Jayy Vera Referring Physician: Clyde Downing Performed By: Ree Magaña, JENNIFERCS, RVT D/C Instructions Discharge Diet: Low fat / Low cholesterol Call your doctor if you observe: Fever of 101 or Higher, Shortness of breath, Dizziness, Fainting spells, Swelling in the ankles, Chest pain and Increased palpitations (irregular heartbeat) Meaningful Use Info Meaningful Use Meaningful Use Diagnoses (Choose all that apply): None applicable Ischemic Stroke Statin Dosing Therapy Reference: STATIN DOSE THERAPY REFERENCE: * Patients > 75 years receive moderate or high dose statin therapy. * Patients 75 years or YOUNGER should receive HIGH intensity statin dose unless contraindicated. You will be required to document reason for non-treatment if statin daily dose does not meet guidelines. HIGH DOSE STATIN THERAPY DAILY Atorvastatin > than or = to 40 mg Rosuvastatin > than or = to 20 mg Amlodipine + Atorvastatin > than or = to 2.5/40 mg Ezetimibe + Simvastatin 10/80 mg Simvastatin 80mg Discharge Plan Admission Admit Date/Time: 02/07/24 11:20 Attending Provider: Jayy Vera Primary Care Provider: Clyde Downing Consulting Providers: Marquez Greenberg; Charlotte Pennington; Sharmila Rasmussen; Thania Romero; Adela Flynn; Yaniv Greco; Yamilet Sandhu; Connor James; Ryan Leone; Amy Oconnor; Alejandro Moreno; Emerita Hernández; Jose Zelaya; José Bro; Dimitri Thomas; Keyon Browne; Hong Child; Lien Corona; Rossy Dong Instructions Patient Instructions: Discharge Instructions for Stroke Discharge Orders/Prescriptions Prescriptions: New aspirin 81 mg Tablet,Chewable 81 mg PO BREAKFAST 30 Days Qty: 30 0RF atorvastatin 40 mg Tablet 40 mg PO QHS 30 Days Qty: 30 0RF Continued losartan 50 mg tablet 50 mg PO DAILY meloxicam 7.5 mg tablet 7.5 mg PO DAILY hydrochlorothiazide 12.5 mg capsule 12.5 mg PO DAILY sertraline 50 mg tablet 50 mg PO DAILY Discontinued afbidjseir-cpdbrhptc-ajbxlfalk 5-160-12.5 mg tablet 1 tab PO QDAY lactobacillus combination no.9 [Adult 50 Plus Probiotic] 4 billion cell capsule 4,000 mmu cells PO QDAY Other Ambulatory Orders: 30 Day Event Recorder Preventi (Routine) Timeframe: 1 Day Facility: [facility] - Location: Cardiovascular Services Ordered By: Dr. Jayy Vera Referrals / Follow Up: Ricardo Orr MD [Med Staff - Active Staff] - Within 2 Weeks (Right >70% ICA occlusion) Clyde Downing MD [Primary Care Provider] - Within 1 Week Disposition Disposition (needs filled in before D/C Order can be placed): Home Health Service Charges/Coding Visit Charges Inpatient E&M: 97676 Disch Hosp >30min 02/08/24 1835 <Electronically signed by Jayy Vera MD> Cosigner Signature (if applicable): CC: Dr. Jayy Vera MD; Dr. Clyde Downing MD~ Signed [facility] Work Phone: Evaluation note* Diagnosis Onset Date Resolution Status Back pain acute Segmental and somatic dysfunction of cervical region acute Segmental and somatic dysfunction of lumbar region acute Segmental and somatic dysfunction of pelvic region acute Segmental and somatic dysfunction of thoracic region acute DDD (degenerative disc disease), lumbar chronic [facility] Work Phone: Evaluation note* Diagnosis Onset Date Resolution Status Back pain acute Segmental and somatic dysfunction of cervical region acute Segmental and somatic dysfunction of lumbar region acute Segmental and somatic dysfunction of pelvic region acute Segmental and somatic dysfunction of thoracic region acute DDD (degenerative disc disease), lumbar chronic Back pain acute Segmental and somatic dysfunction of cervical region acute Segmental and somatic dysfunction of lumbar region acute Segmental and somatic dysfunction of pelvic region acute Segmental and somatic dysfunction of thoracic region acute DDD (degenerative disc disease), lumbar chronic [facility] Work Phone: Evaluation note* Diagnosis Onset Date Resolution Status Back pain acute Segmental and somatic dysfunction of cervical region acute Segmental and somatic dysfunction of lumbar region acute Segmental and somatic dysfunction of pelvic region acute Segmental and somatic dysfunction of thoracic region acute DDD (degenerative disc disease), lumbar chronic Back pain acute Segmental and somatic dysfunction of cervical region acute Segmental and somatic dysfunction of lumbar region acute Segmental and somatic dysfunction of pelvic region acute Segmental and somatic dysfunction of thoracic region acute DDD (degenerative disc disease), lumbar chronic CVA (cerebral vascular accident) acute [facility] Work Phone: Evaluation note* Diagnosis Stroke- Primary Unspecified cerebral artery occlusion with cerebral infarction Cerebrovascular accident (CVA), unspecified mechanism Seizure Other convulsions History of arterial ischemic stroke Transient ischemic attack (TIA), and cerebral infarction without residual deficits Other hyperlipidemia Normocytic anemia Anemia, unspecified Essential hypertension Unspecified essential hypertension Normocytic anemia Anemia, unspecified Essential hypertension Unspecified essential hypertension Other hyperlipidemia Acute encephalopathy Encephalopathy, unspecified [facility] St[facility]- Primary Unspecified cerebral artery occlusion with cerebral infarction Breakthrough seizure Unspecified epilepsy with intractable epilepsy Electrolyte disorder (K, Cl, or Na) Electrolyte and fluid disorders not elsewhere classified Cerebrovascular accident (CVA), unspecified mechanism Other cerebrovascular vasospasm and vasoconstriction Electrolyte disorder (K, Cl, or Na) Electrolyte and fluid disorders not elsewhere classified [facility] encounter [facility] assessment information available [facility] Work Phone: Reason for referral (narrative)* Consultation (Routine) - New Request Specialty Diagnoses / Procedures Referred By Contac t Referred To Contact Neurology Diagnoses Cerebrovascular accident (CVA), unspecified mechanism Yaniv Greco MD [address] [place] [address] Referral ID Status Reason Start Date Expiration Date V isits Requested Visits Authorized [id number] New Request 10/31/2024 11/25/2025 1 1 * Radiology (Routine) - New Request Specialty Diagnoses / Procedures Referred By Contac t Referred To Contact Diagnoses Cerebrovascular accident (CVA), unspecified mechanism Other cerebrovascular vasospasm and vasoconstriction Procedures MOBILE CARDIAC TELEMETRY Yaniv Greco MD [address] [place] [address] Referral ID Status Reason Start Date Expiration Date V isits Requested Visits Authorized [id number] New Request 10/31/2024 11/25/2025 1 1 * Adjunctive Therapy (Routine) - New Request Specialty Diagnoses / Procedures Referred By Contac t Referred To Contact Diagnoses Breakthrough seizure Cerebrovascular accident (CVA), unspecified mechanism Yaniv Greco MD [address] [place] [address] Referral ID Status Reason Start Date Expiration Date V isits Requested Visits Authorized [id number] New Request 10/31/2024 11/25/2025 1 1 * Unlisted Procedure Code (Routine) - New Request Specialty Diagnoses / Procedures Referred By Contac t Referred To Contact Procedures PLATELET MONITORING PER PROTOCOL Yaniv Greco MD [address] [place] [address] Referral ID Status Reason Start Date Expiration Date V isits Requested Visits Authorized [id number] New Request 10/30/2024 11/24/2025 1 1 * Unlisted Procedure Code (Routine) - New Request Specialty Diagnoses / Procedures Referred By Contac t Referred To Contact Procedures DVT/VTE RISK ASSESSMENT Yaniv Greco MD [address] [place] [address] Referral ID Status Reason Start Date Expiration Date V isits Requested Visits Authorized [id number] New Request 10/30/2024 11/24/2025 1 1 * (Routine) Specialty Diagnoses / Procedures Referred By Contac t Referred To Contact [facility] [address] [place] [address] Referral ID Status Reason Start Date Expiration Date Visits Re quested Visits Authorized * Unlisted Procedure Code (Routine) - New Request Specialty Diagnoses / Procedures Referred By Contac t Referred To Contact Procedures DVT/VTE RISK ASSESSMENT Ginger Sevilla MD [address] [place] [address] Referral ID Status Reason Start Date Expiration Date V isits Requested Visits Authorized [id number] New Request 10/29/2024 11/23/2025 1 1 * Radiology (Emergency) - New Request Specialty Diagnoses / Procedures Referred By Contac t Referred To Contact Procedures ECG Rosales Zelaya MD [address] [place] [address] Referral ID Status Reason Start Date Expiration Date V isits Requested Visits Authorized [id number] New Request 10/27/2024 11/21/2025 1 1 [facility] (narrative)No reason for referral information availableWMercy Health [facility] Work Phone: Reason for visit Narrative* Auth/Cert Specialty Diagnoses / Procedures Referred By Contac t Referred To Contact Diagnoses seizure Elizabet Foreman MD [address] [place], [place] [id number] [facility] [address] [place] [address] Referral ID Status Reason Start Date Expiration Date Visits Re quested Visits Authorized [id number] 1 1 [facility] Narrative* Auth/Cert Specialty Diagnoses / Procedures Referred By Contac t Referred To Contact Diagnoses Stroke LEVEL A STROKE ALERT, s/p lytics, LKW: 1500, ETA: Ginger Mohr MD [address] [place] [id number] [facility] [address] [place] [address] Referral ID Status Reason Start Date Expiration Date Visits Re quested Visits Authorized [id number] 1 1 [facility] Chief Complaint and Reason for Visit Chief Complaint Back pain Reason for Visit Back pain Segmental and somatic dysfunction of cervical region Segmental and somatic dysfunction of lumbar region Segmental and somatic dysfunction of pelvic region Segmental and somatic dysfunction of thoracic region DDD (degenerative disc disease), lumbar Chief Complaint Back pain Back pain CVA Reason for Visit Back pain Segmental and somatic dysfunction of cervical region Segmental and somatic dysfunction of lumbar region Segmental and somatic dysfunction of pelvic region Segmental and somatic dysfunction of thoracic region DDD (degenerative disc disease), lumbar Back pain Segmental and somatic dysfunction of cervical region Segmental and somatic dysfunction of lumbar region Segmental and somatic dysfunction of pelvic region Segmental and somatic dysfunction of thoracic region DDD (degenerative disc disease), lumbar Chief Complaint Back pain Back pain CVA Cerebrovascular accident Cerebrovascular accident Reason for Visit Back pain Segmental and somatic dysfunction of cervical region Segmental and somatic dysfunction of lumbar region Segmental and somatic dysfunction of pelvic region Segmental and somatic dysfunction of thoracic region DDD (degenerative disc disease), lumbar Back pain Segmental and somatic dysfunction of cervical region Segmental and somatic dysfunction of lumbar region Segmental and somatic dysfunction of pelvic region Segmental and somatic dysfunction of thoracic region DDD (degenerative disc disease), lumbar CVA (cerebral vascular accident) Chief Complaint Admit Date I65.21 Occlusion and stenosis of right c arotid art September 24, 2024 9:47am stroke alert October 27, 2024 4 :05pm Chief Complaint Admit Date RIGHT ICA STENOSIS February 22, 2025 2:02p m Advance Directives No Advanced Directives Records Found Advance Directive Response Recorded Date/ Time Name of Medical Power of Harness Repairer February 07, 2024 10:00am Living Will Yes February 07, 2024 10 :00am Power of Harness Repairer Yes February 07, 2024 10:00am Advance Directive Response Recorded Date/ Time Name of Medical Power of Harness Repairer February 07, 2024 10:00am Living Will No February 08, 2024 1: 51pm Power of Harness Repairer No February 08, 2024 1:51pm Date Activated Date Inactivated Comments 07/27/2024 8:34 PM Date Activated Date Inactivated Comments 10/29/2024 7:37 AM I have discuss ed Poonam Veloz's Do Not Resuscitate wishes with next of kin, . They are in agreement with this code status. OKAY TO INTUBATE Date Activated Date Inactivated Comments 07/27/2024 8:34 PM 10/29/2024 7:37 AM Advance Directive Response Recorded Date/ Time Living Will No February 08, 2024 1: 51pm Do you have a Healthcare Power of Harness Repairer? No February 08, 2024 1:51pm Living Will No Lucila 25th, 20 25 5:35pm Do you have a Healthcare Power of Harness Repairer? No October 27, 2024 5:35pm Reason for Referral Specialty Diagnoses / Procedures Referred By Contac t Referred To Contact Social Work Diagnoses Seizure Normocytic anemia Essential hypertension Josias Joseph MD [address] [place] [address] Referral ID Status Reason Start Date Expiration Date V isits Requested Visits Authorized [id number] New Request 07/30/2024 08/24/2025 1 1 Specialty Diagnoses / Procedures Referred By Contac t Referred To Contact Neurology Diagnoses Seizure History of arterial ischemic stroke Other hyperlipidemia Normocytic anemia Essential hypertension Josias Joseph MD [address] [place] [address] Referral ID Status Reason Start Date Expiration Date V isits Requested Visits Authorized [id number] New Request 07/30/2024 08/24/2025 1 1 Specialty Diagnoses / Procedures Referred By Contac t Referred To Contact Procedures PLATELET MONITORING PER PROTOCOL Donn Denton DO [address] [place] [address] Referral ID Status Reason Start Date Expiration Date V isits Requested Visits Authorized [id number] New Request 07/27/2024 08/21/2025 1 1 Specialty Diagnoses / Procedures Referred By Contac t Referred To Contact Procedures DVT/VTE RISK ASSESSMENT Donn Denton DO [address] [place] [address] Referral ID Status Reason Start Date Expiration Date V isits Requested Visits Authorized [id number] New Request 07/27/2024 08/21/2025 1 1 Summary Purpose Family History No Family History Records Found Additional Source Comments Care Teams (unrecognized sec tion and content) Team Status: Active Member Role Status Dates Dr. Clyde Downing MD Family Provider Active Dr. Clyde Downing MD Primary Care Provider Active Team Status: Inactive Member Role Status Dates Dr. Clyde Downing MD Primary Care Provider, Referring Provider Active Dr. Rachael Duque DC Attending Provider Active Team Status: Active Member Role Status Dates Dr. Clyde Downing MD Primary Care Provider Active Dr. Anselmo Potts DO Emergency Provider Active Dr. Jayy Vera MD Admit Provider, Attending Provider Active Marquez Greenberg MD Other Provider Active Dr. Charlotte Pennington MD Other Provider Active Sharmila Rasmussen MD Other Provider Active Dr. Thania Romero , Other Provider Active Dr. Adela Flynn MD Other Provider Active Dr. Yaniv Greco MD Other Provider Active Dr. Yamilet Sandhu MD Other Provider Active Dr. Connor James MD Other Provider Active Dr. Ryan Leone MD Other Provider Active Amy Oconnor MD Other Provider Active Dr. Alejandro Moreno MD Other Provider Active Dr. Emerita Hernández MD Other Provider Active Dr. Jose Zelaya MD Other Provider Active Dr. José Bro MD Other Provider Active Dr. Dimitri Thomas MD Other Provider Active Dr. Keyon Browne MD Other Provider Active Dr. Hong Child MD Other Provider Active Dr. Lien Corona MD Other Provider Active Rossy Dong MD Other Provider Active Team Status: Active Member Role Status Dates Dr. Clyde Downing MD Primary Care Provider Active Dr. Ricardo Orr MD Attending Provider Active Team Status: Active Member Role Status Dates Dr. Clyde Downing MD Primary Care Provider Active Dr. Anselmo Potts , Emergency Provider Active Dr. Jayy Vera MD Admit Provi wyatt, Attending Provider, Other Provider Active Marquez Greenberg MD Other Provider Active Dr. Charlotte Pennington MD Other Provider Active Sharmila Rasmussen MD Other Provider Active Dr. Thania Romero , Other Provider Active Dr. Adela Flynn MD Other Provider Active Dr. Yaniv Greco MD Other Provider Active Dr. Yamilet Sandhu MD Other Provider Active Dr. Connor James MD Other Provider Active Dr. Ryan Leone MD Other Provider Active Amy Oconnor MD Other Provider Active Dr. Alejandro Moreno MD Other Provider Active Dr. Emerita Hernández MD Other Provider Active Dr. Jose Zelaya MD Other Provider Active Dr. José Bro MD Other Provider Active Dr. Dimitri Thomas MD Other Provider Active Dr. Keyon Browne MD Other Provider Active Dr. Hong Child MD Other Provider Active Dr. Lien Corona MD Other Provider Active Rossy Dong MD Other Provider Active Team Status: Active Member Role Status Dates Dr. Clyde Downing MD Primary Care Provider Active Dr. Desmond Storm MD Attending Provider Active Team Status: Inactive Member Role Status Dates Dr. Clyde Downing MD Primary Care Provider Active Dr. Anselmo Potts DO Emergency Provider Active Dr. Jayy Vera MD Admit Provider, Attending Provider Active Marquez Greenberg MD Other Provider Active Dr. Charlotte Pennington MD Other Provider Active Sharmila Rasmussen MD Other Provider Active Dr. Thania Romero DO Other Provider Active Dr. Adela Flynn MD Other Provider Active Dr. Yaniv Greco MD Other Provider Active Dr. Yamilet Sandhu MD Other Provider Active Dr. Connor James MD Other Provider Active Dr. Ryan Leone MD Other Provider Active Amy Oconnor MD Other Provider Active Dr. Alejandro Moreno MD Other Provider Active Dr. Emerita Hernández MD Other Provider Active Dr. Jose Zelaya MD Other Provider Active Dr. José Bro MD Other Provider Active Dr. Dimitri Thomas MD Other Provider Active Dr. Keyon Browne MD Other Provider Active Dr. Hong Child MD Other Provider Active Dr. Lien Corona MD Other Provider Active Rossy Dong MD Other Provider Active Foam Fabricator Relationship Specialty Start Date End Date Clyde Downing MD [address] [place], [place] [id number] PCP - General Family Medicine 07/30/24 Team Status: Inactive Member Role Status Dates Dr. Clyde Downing MD Primary Care Provider, Attending Provider Active Foam Fabricator Relationship Specialty Start Date End Date Clyde Downing MD [address] [place], [place] [id number] PCP - General Family Medicine 07/30/24 Team Status: Inactive Member Role Status Dates Dr. Clyde Downing MD Primary Care Provider Active Start: September 14, 2024 End: September 14, 2024 Dr. Clyde Downing MD Attending Provider Active Start: September 14, 2024 End: September 14, 2024 Dr. Clyde Downing MD Referring Provider Active Start: September 14, 2024 End: September 14, 2024 Team Status: Inactive Member Role Status Dates Dr. Clyde Downing MD Primary Care Provider Active Start: September 24, 2024 End: September 24, 2024 SEEMA Hooker Attending Provider Active Star t: September 24, 2024 End: September 24, 2024 SEEMA Hooker Referring Provider Active Star t: September 24, 2024 End: September 24, 2024 Team Status: Active Member Role Status Dates Dr. Clyde Downing MD Primary Care Provider Active Start: September 24, 2024 Dr. Ricardo Orr MD Attending Provider Active S tart: September 24, 2024 SEEMA Hooker Referring Provider Active Star t: September 24, 2024 Team Status: Inactive Member Role Status Dates Dr. Clyde Downing MD Primary Care Provider Active Start: October 27, 2024 End: October 27, 2024 Dr. Song Yanez DO Attending Provider Active Start: October 27, 2024 End: October 27, 2024 Dr. Song Yanez DO Emergency Provider Active Start: October 27, 2024 End: October 27, 2024 Team Status: Inactive Member Role Status Dates Dr. Clyde Downing MD Primary Care Provider Active Start: January 07, 2025 End: January 07, 2025 Dr. Clyde Downing MD Attending Provider Active Start: January 07, 2025 End: January 07, 2025 Dr. Clyde Downing MD Referring Provider Active Start: January 07, 2025 End: January 07, 2025 Team Status: Active Member Role Status Dates Dr. Clyde Downing MD Primary Care Provider Active Team Status: Inactive Member Role Status Dates Dr. Clyde Downing MD Primary Care Provider Active Start: February 22, 2025 End: February 22, 2025 SEEMA Hooker Attending Provider Active Star t: February 22, 2025 End: February 22, 2025 SEEMA Hooker Referring Provider Active Star t: February 22, 2025 End: February 22, 2025 Team Status: Active Member Role Status Dates Dr. Clyde Downing MD Primary Care Provider Active Start: February 22, 2025 Dr. Ricardo Orr MD Attending Provider Active S tart: February 22, 2025 Scheduled Active and Recently Administ ered Medications (unrecognized section and content) Medication Order 07/28/2024 07/29/2024 07/30/2024 aspirin chewable tablet 81 mg 81 mg, Oral, DAILY, First dose on 07/28/24 at 0900, Until Discontinued 0900 (Automatically Held - Provider: Donn Denton DO)0946 (Unheld by provider - Provider: Josias Joseph MD) 0850 (Given - Provider: Antoni Bishop RN) 0900 (Given - Provider: Verónica Vale RN) Docusate (COLACE) capsule 100 mg 100 mg, Oral, EVERY 12 HOURS, First dose on 07/28/24 at 1000, Until Discontinued 1038 (Given - Provider: Todd Tran RN)2110 (Given - Provider: Kulwinder Garcia RN) 0850 (Given - Provider: Antoni Bishop RN)2159 (Given - Provider: Celine Ulloa, CAROLYN) 0901 (Given - Provider: Verónica Vale, CAROLYN) Enoxaparin Sodium (LOVENOX) injection 40 mg 40 mg, Subcutaneous, EVERY 24 HOURS, First dose on 07/28/24 at 0900, Until Discontinued, For SUBCUTANEOUS route ONLY: alternate injection sites between left and right abdominal wall, pinching location and avoiding area around navel. If unable to use abdominal sites, may use the front or side of thighs., Indications: DVT/PE prophylaxis 0851 (Given - Provider: Todd Tran RN) 0850 (Given - Provider: Antoni Bishop RN) 0900 (Given - Provider: Verónica Vale RN) hydroCHLOROthiazide (MICROZIDE) capsule 12.5 mg 12.5 mg, Oral, DAILY, First dose on 07/28/24 at 0900, Until Discontinued 0900 (Automatically Held - Provider: Donn Denton DO)0947 (Unheld by provider - Provider: Josias Joseph MD) 0850 (Given - Provider: Antoni Bishop RN) 0900 (Given - Provider: Verónica Vale RN) levETIRAcetam (KEPPRA) injection 500 mg (CANCELED) 500 mg, Intravenous, EVERY 12 HOURS, First dose on 07/28/24 at 2100, Until Discontinued, Administer by IV push at a rate not to exceed 500 mg/min. 211 (Given - Provider: Kulwinder Garcia RN) 0851 (Given - Provider: Antoni Bishop RN) levETIRAcetam (KEPPRA) tablet 500 mg 500 mg, Oral, EVERY 12 HOURS, First dose on 07/29/24 at 2100, Until Discontinued 2158 (Given - Provider: Celine Ulloa RN) 0900 (Given - Provider: Verónica Vale RN) Losartan (COZAAR) tablet 50 mg 50 mg, Oral, DAILY, First dose on 07/28/24 at 0900, Until Discontinued 09 (Automatically Held - Provider: Donn Denton DO)0946 (Unheld by provider - Provider: Josias Joseph MD) 0850 (Given - Provider: Antoni Bishop RN) 0900 (Given - Provider: Verónica Vale RN) Potassium chloride (K-DUR) tablet ER 20 mEq (COMPLETED) 20 mEq, Oral, ONCE, 1 dose, On 07/29/24 at 0230, Swallow tablets whole; do not crush, chew, or suck on tablet. Tablet may also be broken in half and each half swallowed separately. 0314 (Given - Provider: Kulwinder Garcia RN) Potassium chloride (K-DUR) tablet ER 40 mEq (COMPLETED) 40 mEq, Oral, ONCE, 1 dose, On 07/29/24 at 1145, Swallow tablets whole; do not crush, chew, or suck on tablet. Tablet may also be broken in half and each half swallowed separately. 1250 (Given - Provider: Antoni Bishop RN) Senna (SENOKOT) tablet 8.6 mg(Linked Group 1) 8.6 mg, Oral, DAILY EVERY MORNING, First dose on Tue07/27/24 at 2100, Until Discontinued, Hold if BM in last 2 hours. 0027 (Not Given - Provider: Kulwinder Garcia RN - Reason: Contraindicated - Comment: npo)0900 (Automatically Held - Provider: Donn Denton DO)0946 (Unheld by provider - Provider: Josias Joseph MD) 0850 (Given - Provider: Antoni Bishop RN) 0900 (Given - Provider: Verónica Vale RN) Sertraline (ZOLOFT) tablet 100 mg 100 mg, Oral, DAILY, First dose on 07/28/24 at 0900, Until Discontinued 0900 (Automatically Held - Provider: Donn Denton DO)0946 (Unheld by provider - Provider: Josias Joseph MD) 0850 (Given - Provider: Antoni Bishop RN) 0901 (Given - Provider: Verónica Vale RN) Continuous Medication Order 07/28/2024 07/29/2024 07/30/2024 Sodium chloride 0.9% IV solution (CANCELED) Intravenous, at 100 mL/hr, CONTINUOUS, Starting on Tue07/27/24 at 2315, Until 07/28/24 at 0914 0037 ($$New Bag$$ - Provider: Kulwinder Garcia RN)0312 (Paused - Provider: Kulwinder Garcia RN)0318 (Restarted - Provider: Kulwinder Garcia RN)0412 (Stopped - Provider: Kulwinder Garcia RN)0440 (Restarted - Provider: Kulwinder Garcia RN)0851 (Handoff - Provider: Todd Tran RN)0945 (Stopped - Provider: Todd Tran RN) PRN Medication Order 07/28/2024 07/29/2024 07/30/2024 Acetaminophen (TYLENOL) tablet 650 mg(Linked Group 2) 650 mg, Oral, EVERY 4 HOURS NEEDED, Starting on Tue07/27/24 at 2030, Until 07/30/24 at 1515, Severe Pain, Oral temp > 99.5, Maximum dose of acetaminophen is 4000 mg from all sources in 24 hours. hydrALAZINE (APRESOLINE) tablet 25 mg 25 mg, Oral, EVERY 8 HOURS NEEDED, Starting on 07/28/24 at 0946, Until 07/30/24 at 1515, Other, SBP > 160, DBP > 100 Melatonin tablet 6 mg 6 mg, Oral, DAILY AT BEDTIME NEEDED, Starting on Tue07/28/24 at 0945, Until Tue07/30/24 at 1515, Insomnia, First line 2159 (Given - Provider: Kenia Ulloa, RN) Ondansetron 4mg/2ml (ZOFRAN) injection 4 mg 4 mg, Intravenous, EVERY 6 HOURS NEEDED, Starting on Tue07/28/24 at 0945, Until Tue07/30/24 at 1515, Nausea / Vomiting Polyethylene glycol (MIRALAX) packet 17 g 17 g, Oral, 2 TIMES DAILY NEEDED, Starting on 07/28/24 at 0945, Until Tue07/30/24 at 1515, Constipation 1st Line, Constipation 3rd line Linked Groups Order Group 1: Senna (SENOKOT) tablet 8.6 mgJump to med 8.6 mg, Oral, DAILY EVERY MORNING, First dose on Tue07/27/24 at 2100, Until Discontinued, Hold if BM in last 2 hours. Or Senna (SENOKOT) tablet 8.6 mg (CANCELED) 8.6 mg, Per NG tube, DAILY EVERY MORNING, First dose on Tue07/27/24 at 2100, Until Discontinued, Hold if BM in last 2 hours., On hold since Tue07/27/2024 at 2330 until manually unheld Group 2: Acetaminophen (TYLENOL) tablet 325 mg (CANCELED) 325 mg, Oral, EVERY 4 HOURS NEEDED, Starting on Tue07/27/24 at 2030, Until 07/28/24 at 0947, Mild Pain, Moderate Pain, Maximum dose of acetaminophen is 4000 mg from all sources in 24 hours. Or Acetaminophen (TYLENOL) tablet 325 mg (CANCELED) 325 mg, Per NG tube, EVERY 4 HOURS NEEDED, Starting on Tue07/27/24 at 2030, Until 07/28/24 at 0945, Mild Pain, Moderate Pain, Maximum dose of acetaminophen is 4000 mg from all sources in 24 hours. Or Acetaminophen (TYLENOL) tablet 650 mgJump to med 650 mg, Oral, EVERY 4 HOURS NEEDED, Starting on Tue07/27/24 at 2030, Until Tue07/30/24 at 1515, Severe Pain, Oral temp > 99.5, Maximum dose of acetaminophen is 4000 mg from all sources in 24 hours. Or Acetaminophen (TYLENOL) tablet 650 mg (CANCELED) 650 mg, Per NG tube, EVERY 4 HOURS NEEDED, Starting on Tue07/27/24 at 2030, Until 07/28/24 at 0945, Severe Pain, Oral temp > 99.5, Maximum dose of acetaminophen is 4000 mg from all sources in 24 hours. Scheduled Medication Order 10/29/2024 10/30/2024 10/31/2024 aspirin chewable tablet 81 mg 81 mg, Oral, DAILY, First dose on Tue10/29/24 at 1245, Until Discontinued 1252 (Given - Provider: Anika Thomas RN) 0838 (Given - Provider: Verónica Portillo, CAROLYN) 0847 (Given - Provider: Verónica Portillo RN) Enoxaparin Sodium (LOVENOX) injection 40 mg 40 mg, Subcutaneous, EVERY 24 HOURS, First dose on Tue10/30/24 at 0900, Until Discontinued, For SUBCUTANEOUS route ONLY: alternate injection sites between left and right abdominal wall, pinching location and avoiding area around navel. If unable to use abdominal sites, may use the front or side of thighs., Indications: DVT/PE prophylaxis 0838 (Given - Provider: Verónica Portillo RN) 0847 (Given - Provider: Verónica Portillo, CAROLYN) hydroCHLOROthiazide (MICROZIDE) capsule 12.5 mg 12.5 mg, Oral, DAILY, First dose on 10/28/24 at 0900, Until Discontinued, On hold since 10/28/2024 at 0708 until manually unheld 0900 (Automatically Held) 0900 (Automatically Held) 0900 (Automatically Held)1358 (Unheld by provider - Provider: System Discharge) hydrOXYzine hcl (ATARAX) tablet 10 mg (COMPLETED) 10 mg, Oral, ONCE, 1 dose, On Tue10/31/24 at 1130 1145 (Given - Provider: Verónica Portillo RN) levETIRAcetam (KEPPRA) tablet 500 mg(Linked Group 1) 500 mg, Oral, EVERY 12 HOURS, First dose on 10/27/24 at 2230, Until Discontinued 0900 (Given - Provider: Anika Thomas RN)2005 (Given - Provider: Jasmina Marino RN) 0838 (Given - Provider: Verónica Portillo RN)2019 (Given - Provider: Zane Liriano RN) 0847 (Given - Provider: Verónica Portillo RN) Losartan (COZAAR) tablet 50 mg 50 mg, Oral, DAILY, First dose on 10/28/24 at 0900, Until Discontinued, On hold since 10/28/2024 at 0708 until manually unheld 0900 (Automatically Held) 0900 (Automatically Held) 0900 (Automatically Held)1358 (Unheld by provider - Provider: System Discharge) Rosuvastatin (CRESTOR) tablet 5 mg 5 mg, Oral, DAILY, First dose on Tue10/30/24 at 1500, Until Discontinued 1628 (Given - Provider: Verónica Portillo RN) 0847 (Given - Provider: Verónica Portillo RN) Senna (SENOKOT) tablet 8.6 mg(Linked Group 2) 8.6 mg, Oral, DAILY EVERY MORNING, First dose on Tue10/29/24 at 0900, Until Discontinued, Hold if BM in last 2 hours. 0900 (Given - Provider: Anika Thomas RN) 0944 (Not Given - Provider: Verónica Portillo RN - Reason: Patient/family refused) 0848 (Not Given - Provider: Verónica Portillo RN - Reason: Patient with symptoms) Senna (SENOKOT) tablet 8.6 mg(Linked Group 2) 8.6 mg, Per NG tube, DAILY EVERY MORNING, First dose on Tue10/29/24 at 0900, Until Discontinued, Hold if BM in last 2 hours. 0900 (See Alternative - Provider: Anika Thomas RN) 0944 (See Alternative - Provider: Verónica Portillo RN) 0848 (See Alternative - Provider: Verónica Portillo RN) Sertraline (ZOLOFT) tablet 100 mg 100 mg, Oral, DAILY, First dose on 10/28/24 at 0900, Until Discontinued 2006 (Given - Provider: Jasmina Marino RN) 2019 (Given - Provider: Zane Liriano RN) Continuous Medication Order 10/29/2024 10/30/2024 10/31/2024 Sodium chloride 0.9% IV solution (CANCELED) Intravenous, at 75 mL/hr, CONTINUOUS, Starting on Tue10/29/24 at 0745, Until Tue10/30/24 at 0758 0900 ($$New Bag$$ - Provider: Anika Thomas RN)1122 (Rate/Dose Verify - Provider: Anika Thomas RN)1147 (Paused - Provider: Verónica Portillo RN)1147 (Paused - Provider: Verónica Portillo RN)1200 (Restarted - Provider: Verónica Portillo RN)1228 (Paused - Provider: Verónica Portillo RN)1248 (Paused - Provider: Verónica Portillo RN)1346 (Rate/Dose Change - Provider: Anika Thomas RN - Comment: [Action automatically changed])1740 ([employer] - Provider: Mary Grace Villanueva RN)1742 ($$New Bag$$ - Provider: Mary Grace Villanueva RN)1749 (Paused - Provider: Verónica Portillo RN)1752 (Restarted - Provider: Verónica Portillo RN)1753 (Stopped - Provider: Verónica Portillo RN) 1006 (Stopped - Provider: Verónica Portillo RN) PRN Medication Order 10/29/2024 10/30/2024 10/31/2024 Acetaminophen (TYLENOL) tablet 325 mg(Linked Group 3) 325 mg, Oral, EVERY 4 HOURS NEEDED, Starting on Tue10/29/24 at 0737, Until Tue10/31/24 at 1358, Mild Pain, Moderate Pain, Maximum dose of acetaminophen is 4000 mg from all sources in 24 hours. Acetaminophen (TYLENOL) tablet 325 mg(Linked Group 3) 325 mg, Per NG tube, EVERY 4 HOURS NEEDED, Starting on Tue10/29/24 at 0737, Until Tue10/31/24 at 1358, Mild Pain, Moderate Pain, Maximum dose of acetaminophen is 4000 mg from all sources in 24 hours. Acetaminophen (TYLENOL) tablet 650 mg(Linked Group 3) 650 mg, Oral, EVERY 4 HOURS NEEDED, Starting on Tue10/29/24 at 0737, Until Tue10/31/24 at 1358, Severe Pain, Oral temp > 99.5, Maximum dose of acetaminophen is 4000 mg from all sources in 24 hours. Acetaminophen (TYLENOL) tablet 650 mg(Linked Group 3) 650 mg, Per NG tube, EVERY 4 HOURS NEEDED, Starting on 10/29/24 at 0737, Until Tue10/31/24 at 1358, Severe Pain, Oral temp > 99.5, Maximum dose of acetaminophen is 4000 mg from all sources in 24 hours. hydrALAZINE (APRESOLINE) injection 10 mg 10 mg, Intravenous, EVERY 10 MINUTES NEEDED, 3 doses, Starting on 10/27/24 at 2035, Until Tue10/31/24 at 1358, systolic blood pressure greater than 180 OR diastolic blood pressure greater than 105. HOLD if heart rate greater than 60. hydrALAZINE (APRESOLINE) injection 10 mg 10 mg, Intravenous, EVERY 1 HOUR NEEDED, Starting on 10/29/24 at 0737, Until Tue10/31/24 at 1358, Blood Pressure (High), Systolic Blood Pressure greater than 180 mmHg OR Diastolic Blood Pressure greater than 105 mmHg and heart rate LESS THAN 60 beats per minute. HOLD if heart rate greater than 60. Labetalol (NORMODYNE) injection 10 mg 10 mg, Intravenous, EVERY 1 HOUR NEEDED, Starting on Tue10/29/24 at 0737, Until Tue10/31/24 at 1358, Systolic Blood Pressure greater than 180 mmHg Diastolic Blood Pressure greater than 105 mmHg and heart rate GREATER THAN 60 beats per minute., Hold if Heart Rate LESS THAN 60 beats per minute. For vials: labetalol should be treated as a SINGLE USE VIAL. Discard remaining contents after one use. Labetalol (NORMODYNE) injection 20 mg 20 mg, Intravenous, EVERY 10 MINUTES NEEDED, 3 doses, Starting on 10/27/24 at 2035, Until Tue10/31/24 at 1358, Administer for systolic blood pressure greater than 180 OR diastolic blood pressure greater than 105. HOLD if heart rate less than 60., Administration duration: up to 20 mg over 2 minutes. 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 For vials: labetalol should be treated as a SINGLE USE VIAL. Discard remaining contents after one use. LORazepam (ATIVAN) tablet 1 mg (COMPLETED) 1 mg, Oral, ONCE DIRECTED, 1 dose, Starting on Tue10/28/24 at 1415, Until Tue10/29/24 at 2115, Anxiety, for use prior to MRI 2114 (Given - Provider: Jasmina Marino RN) Polyethylene glycol (MIRALAX) packet 17 g(Linked Group 4) 17 g, Oral, DAILY NEEDED, Starting on Tue10/29/24 at 0737, Until Tue10/31/24 at 1358, Constipation If No Bowel Movement in 48 Hours Polyethylene glycol (MIRALAX) packet 17 g(Linked Group 4) 17 g, Per NG tube, DAILY NEEDED, Starting on Tue10/29/24 at 0737, Until Tue10/31/24 at 1358, Constipation If No Bowel Movement in 48 Hours Linked Groups Order Group 1: levETIRAcetam (KEPPRA) tablet 500 mgJump to med 500 mg, Oral, EVERY 12 HOURS, First dose on 10/27/24 at 2230, Until Discontinued Or levETIRAcetam (KEPPRA) injection 500 mg (CANCELED) 500 mg, Intravenous, EVERY 12 HOURS, First dose on 10/27/24 at 2230, Until Discontinued, Administer by IV push at a rate not to exceed 500 mg/min. Group 2: Senna (SENOKOT) tablet 8.6 mgJump to med 8.6 mg, Oral, DAILY EVERY MORNING, First dose on Tue10/29/24 at 0900, Until Discontinued, Hold if BM in last 2 hours. Or Senna (SENOKOT) tablet 8.6 mgJump to med 8.6 mg, Per NG tube, DAILY EVERY MORNING, First dose on Tue10/29/24 at 0900, Until Discontinued, Hold if BM in last 2 hours. Group 3: Acetaminophen (TYLENOL) tablet 325 mgJump to med 325 mg, Oral, EVERY 4 HOURS NEEDED, Starting on Tue10/29/24 at 0737, Until Tue10/31/24 at 1358, Mild Pain, Moderate Pain, Maximum dose of acetaminophen is 4000 mg from all sources in 24 hours. Or Acetaminophen (TYLENOL) tablet 325 mgJump to med 325 mg, Per NG tube, EVERY 4 HOURS NEEDED, Starting on Tue10/29/24 at 0737, Until Tue10/31/24 at 1358, Mild Pain, Moderate Pain, Maximum dose of acetaminophen is 4000 mg from all sources in 24 hours. Or Acetaminophen (TYLENOL) tablet 650 mgJump to med 650 mg, Oral, EVERY 4 HOURS NEEDED, Starting on 10/29/24 at 0737, Until Tue10/31/24 at 1358, Severe Pain, Oral temp > 99.5, Maximum dose of acetaminophen is 4000 mg from all sources in 24 hours. Or Acetaminophen (TYLENOL) tablet 650 mgJump to med 650 mg, Per NG tube, EVERY 4 HOURS NEEDED, Starting on 10/29/24 at 0737, Until Tue10/31/24 at 1358, Severe Pain, Oral temp > 99.5, Maximum dose of acetaminophen is 4000 mg from all sources in 24 hours. Group 4: Polyethylene glycol (MIRALAX) packet 17 gJump to med 17 g, Oral, DAILY NEEDED, Starting on 10/29/24 at 0737, Until Tue10/31/24 at 1358, Constipation If No Bowel Movement in 48 Hours Or Polyethylene glycol (MIRALAX) packet 17 gJump to med 17 g, Per NG tube, DAILY NEEDED, Starting on 10/29/24 at 0737, Until Tue10/31/24 at 1358, Constipation If No Bowel Movement in 48 Hours INFORMATION SOURCE (unrecogn ized section and content) DATE CREATED AUTHOR 11/10/2024 [facility] DATE CREATED AUTHOR AUTHOR'S BRADYIZ ATION 02/28/2025 [facility] FOR RECORDS PERTAINING TO PATIENTS WHO ARE OR HAVE BEEN ENROLLED IN A CHEMICAL DEPENDENCY/SUBSTANCEABUSE PROGRAM, SOME INFORMATION MAY BE OMITTED. This clinical summary was aggregated from multiple sources. Caution should be exercised in using it in the provision of clinical care. This summary normalizes information from multiple sources, and as a consequence, information in this document may materially change the coding, format and clinical context of patient data. In addition, data may be omitted in some cases. CLINICAL DECISIONS SHOULD BE BASED ON THE PRIMARY CLINICAL RECORDS. [employer] provides no warranty or guarantee of the accuracy or completeness of information in this document.
[2025-03-08 22:00] VITALS: BP 142/109; PULSE 73; RESP 15; O2SAT 97
[2025-03-08 22:37] LABS: Anion Gap 14 (5-15); BUN 15 mg/dL (4-19); BUN/Creat Ratio 16.7 RATIO (10-20); Calcium,Total 9.8 mg/dL (7.6-11.0); Carbon Dioxide 21.5 mmol/L (21.0-32.0); Chloride 104 mmol/L (98-108); Creatinine, Serum 0.91 mg/dL (0.70-1.20); EST Glomerular Filtration Rate 63 (>60); Estimated Creatinine Clearance 35.97 ml/min (50-250); Glucose 95 mg/dL (70-99); Potassium 3.8 mmol/L (3.3-5.1); Sodium Level 139 mmol/L (133-145)
--- NOTE | 2025-03-08 22:40 | RAD_ITS ---
PROCEDURE: CHEST 1 VIEW (PORTABLE) N/A REASON FOR EXAM: CONFUSION TECHNIQUE: Frontal view of the chest. COMPARISON: Chest radiographs 10/27/2024 FINDINGS: Hardware: None Heart: The heart size is normal. Lungs: The lungs are clear. Mild blunting of the right costophrenic angle, similar to prior. Bones: Degenerative changes are identified within the thoracic spine. RAD/Chest 1 View (Portable) IMPRESSION: No acute cardiopulmonary abnormality. Mild blunting of the right costophrenic angle is not significantly changed and may be the result of atelectasis or scarring, with pleural effusion less likely. Reading Location: [facility]
--- NOTE | 2025-03-08 22:47 | PCM.HP.STD ---
HPI - General General Date of Admission: 03/08/25 Date of Service: 03/08/25 Chief Complaint: Confusion. HPI Narrative The patient is an 84 y/o F w/ PMHx: CKD stage II per GFR trending, Hx Prior CVA w/ chronic aphasia (baseline prior unaware of her age or month often as examples), Anxiety and Depression, Seizure disorder, HTN, HLD who presents to the [facility] ED on 03/08/25 with history of worsening confusion above her baseline with history of CVA per her neighbor approximately 1 month ago but unsure of exact date with chronic aphasia working with speech therapy but they contacted EMS because the patient had seemed more confused and they were unsure of when it started. Upon ED arrival patient does have noted staged bruising including to her right elbow and right eyelid and is unsure of when she fell or what happened. Workup in the ED included T97.9, heart rate 69, BP 161/85, respiratory rate 16, 99% on room air, CBC with WBC 9.2, hemoglobin 13.2, MCV 84.6, platelet 252 without marked shift, unremarkable coags, unremarkable BMP aside from BUN/2015/0.91, GFR 63, unremarkable urinalysis, chest x-ray with no acute cardiopulmonary findings, EKG with sinus rhythm with no acute evidence of ischemia, CT brain/CTA head and neck with no acute intracranial abnormality with atrophy and chronic ischemic changes, moderate short segment stenosis of the proximal right ICA up to 70% with no large vessel occlusion of the [place] nor any sizable aneurysm. [facility] Medical History CKD (chronic kidney disease), stage II Anxiety and depression Stenosis of right carotid artery Seizure disorder History of CVA (cerebrovascular accident) DDD (degenerative disc disease), lumbar TMJ (temporomandibular joint syndrome) Hypertension Migraines Glaucoma Arthritis Environmental allergies Home Medications ?Medication ?Instructions ?Recorded ?Last Taken ?Type losartan 50 mg tablet 50 mg PO DAILY 02/07/24 10/27/24 History aspirin 81 mg chewable tablet 81 mg PO BREAKFAST 30 days #30 tabs 02/08/24 10/27/24 Rx levetiracetam 500 mg tablet 500 mg PO BID 10/27/24 10/27/24 History sertraline 100 mg tablet 100 mg PO DAILY 10/27/24 10/27/24 History rosuvastatin 5 mg tablet 5 mg PO DAILY 03/08/25 Unknown History Allergy/AdvReac Type Severity Reaction Status Date / Time No Known Allergies Allergy Verified 10/27/24 16:16 Family History Mother CVA (cerebral vascular accident) Hypertension Father CVA (cerebral vascular accident) Hypertension Surgical History S/P appendectomy Social History household members: none Smoking Status: Never smoker alcohol intake: never substance use type: does not use what type of physical activity do you participate in: walking and aerobics frequency: 3-4 times per week ROS ROS Narrative Patient cannot give reliable review of systems especially given her reported increased confusion on top of significant aphasia status post previous stroke. When questioned about ROS her answer is typically that she is not sure. Review of Systems ROS Unobtainable: due to encephalopathy Vital Signs Vital Signs Vital Signs: 03/08/25 20:31 03/08/25 21:20 03/08/25 21:26 Temperature 97.9 F 98.2 F Temperature Source Oral Oral Pulse Rate 69 90 Respiratory Rate 16 16 Blood Pressure 161/85 H 157/102 H Blood Pressure Mean 110 120 Pulse Ox 99 96 Oxygen Delivery Method Room Air Room Air Room Air 03/08/25 21:29 03/08/25 22:00 Temperature Temperature Source Pulse Rate 99 73 Respiratory Rate 20 H 15 Blood Pressure 130/117 H 142/109 H Blood Pressure Mean 121 120 Pulse Ox 97 97 Oxygen Delivery Method Room Air Room Air Weight Weight: 125 lb 0.034 oz Body Mass Index (BMI) 23.6 Physical Exam Narrative Physical Examination: General: Awake, alert, oriented to self and place but cannot give correct month or year or other details, significant aphasia evident, remains cooperative, mildly restless in the ED bed but no overt distress. Skin: Normal color, normal turgor, no icterus, no cyanosis except occasional stage ecchymoses including the face and upper extremities as well as occasional abrasion. HEENT: AT/NC, EOMI, PERRLA, mildly dry MM, no carotid bruits or JVD noted. Lungs: Mildly diminished, greater bases, appropriate effort, no rales, ronchi or wheezing. Heart: Regular rate and rhythm; no gallop, rub audible. Abdomen: Soft, NTTP, ND, hyperactive BS, no HSM. Extremities: No cyanosis, clubbing, or edema, see skin. Neurological: Patient awake, alert, oriented as noted, cognitive function decreased baseline with underlying significant aphasia but is uncertain if this is for exact baseline but from previous evaluation and from neighbors this may be where she has been at previous; pupils equally reactive to light and accommodation, cranial nerves normal, moving all 4 extremities, no focal deficits, strength preserved, finger-nose and [id number] appropriate, equivocal Babinski, sensation intact but of note performing the exam with her is extremely difficult as she has difficulty following the commands and understanding what is requested of her during evaluation. Psychiatric: Affect appears restless, no acute evidence of depressive or anxiety feelings but does have underlying history. Results Lab / Micro Data 03/08/25 21:16 03/08/25 21:16 Labs: Laboratory Results - last 24 hr 03/08/25 21:16: WBC 9.2, RBC 4.61, Hgb 13.2, Hct 39.0, MCV 84.6, MCH 28.6, MCHC 33.8, RDW Std Deviation 45.2 H, RDW Coeff of Edi 14.8 H, Plt Count 252, MPV 9.5, Immature Gran % (Auto) 0.300, Neut % (Auto) 77.8 H, Lymph % (Auto) 15.2 L, [place] % (Auto) 6.0, Eos % (Auto) 0.3, Baso % (Auto) 0.4, Absolute Neuts (auto) 7.1, Absolute Lymphs (auto) 1.40, Nucleated RBC % 0, PT 14.0, INR 1.1, Sodium 139, Potassium 3.8, Chloride 104, Carbon Dioxide 21.5, Anion Gap 14, BUN 15, Creatinine 0.91, Estim Creat Clear Calc 35.97 L, Est GFR (MDRD) Non-Af 63, BUN/Creatinine Ratio 16.7, Glucose 95, Calcium 9.8 Imaging Radiology Impression Head/Neck CTA 03/08/25 21:32 IMPRESSION: 1. No acute intracranial abnormality. Atrophy and chronic ischemic changes as above. 2. Moderate short-segment stenosis of the proximal right ICA (up to 70%). 3. No large vessel occlusion of the [id number]. No sizable aneurysm. Reading Location: [facility] Assessment & Plan Assessment/Plan (1) Encephalopathy: PLAN: Plan The patient is an 84 y/o F w/ PMHx: CKD stage II per GFR trending, Hx Prior CVA w/ chronic aphasia (baseline prior unaware of her age or month often as examples), Anxiety and Depression, Seizure disorder, HTN, HLD who presents to the [facility] ED on 03/08/25 with history of worsening confusion above her baseline with history of CVA per her neighbor approximately 1 month ago but unsure of exact date with chronic aphasia working with speech therapy but they contacted EMS because the patient had seemed more confused and they were unsure of when it started. #1. Increased confusion/acute encephalopathy, questionable worsened aphasia compounded by recent history of CVA with significant aphasia with concern for possible recurrent CVA/TIA: Will admit to PCU, will obtain MRI Brain, ECHO, PT/OT/Speech/Nutrition evaluation per protocol. Will allow permissive HTN, maintain on asa, statin w/ AM FLP, fall precautions. Mag, TSH, FLP, HgbA1c requested. Maintain on fall and aspiration precautions. Will request neurology consultation. Case management consulted as significant concerns for patient returning to live by herself especially if this is her baseline mentation as she is obviously been following and has staged ecchymoses but is unaware of even what happens. It is also unclear if she is even taking her medications are able to assure that she does. #2. Seizure disorder: Will continue patient home Keppra regimen with dose now, currently does not appear postictal and has been similar interactiveness since ED arrival per discussion with ED staff/physician but it is uncertain if potentially she could have missed medication, will hold off on pursuing seizure evaluation at this time while awaiting #1 as noted. #3. Chronic Kidney Disease Stage II per GFR trending: Admission BUN/Cr 15/0.91, GFR 63, baseline renal function 0.7-0.9, repeat BMP in AM. #4. Hypertension: Will maintain permissive hypertension given #1 with as needed agents per stroke protocol, add back home regimen once clinically appropriate. #5. Hyperlipidemia: Continue home statin regimen. AM FLP. #6. Anxiety and depression: Will continue patient home sertraline regimen. #7. DVT prophylaxis: Lovenox. #8. CODE STATUS: Patient is unable to discern if she has any healthcare power of literacy education professor or living will and she does not have any contacts. Given that we are admitting her for increased confusion will defer CODE STATUS discussion at this time and will maintain full code unverified. Charges/Coding Visit Charges Inpatient E&M: 46607 Init Hosp L3
--- NOTE | 2025-03-08 22:52 | EDS_ITS ---
HPI History of Present Illness Chief Complaint: Confusion Narrative Narrative: Brought in by EMS from home reported confusion dysphagia. Patient currently lives alone. unaware who called EMS. She denies headache neck pain chest pains. Denies cough. Denies vomiting or diarrhea. Denies urinary symptoms. Evaluation noted a bruise to her eyelids she is unaware of any falls out got there. After evaluation the patient reviewing records, history of stroke history of seizures. Discussion with the patient from previous notes evaluation she a spouse with her, she states he in January. No children around. She states she is taking her medications. [facility] Medical History History of CVA (cerebrovascular accident) DDD (degenerative disc disease), lumbar TMJ (temporomandibular joint syndrome) Hypertension Migraines Glaucoma Arthritis Environmental allergies Home Medications ?Medication ?Instructions ?Recorded ?Last Taken ?Type losartan 50 mg tablet 50 mg PO DAILY 02/07/2410/04 History aspirin 81 mg chewable tablet 81 mg PO BREAKFAST 30 da ys #30 tabs 02/08/24 10/27/24 Rx levetiracetam 500 mg tablet 500 mg PO BID 10/27/24 History sertraline 100 mg tablet 100 mg PO DAILY 10/27/24 History rosuvastatin 5 mg tablet 5 mg PO DAILY 03/08/25 Unkno wn History Allergy/AdvReac Type Severity Reaction Status Date / Time No Known Allergies Allergy Verified 10/27/24 16:16 Family History Other CVA (cerebral vascular accident) Surgical History S/P appendectomy Social History Smoking Status: Unknown if ever smoked alcohol intake: never substance use type: does not use what type of physical activity do you participate in: walking and aerobics frequency: 3-4 times per week ROS ROS ED Constitutional Constitutional ED: Denies chills, fever(s) or sweats ENT ENT ED: Denies sore throat Cardiovascular Cardiovascular: Denies chest pain, leg edema, palpitations or racing heartbeat Respiratory/Chest Respiratory/Chest: Denies cough, dyspnea or dyspnea on exertion Gastrointestinal Gastrointestinal: Denies abdominal pain, diarrhea, nausea or vomiting Genitourinary Genitourinary ED: Denies dysuria, hematuria or urinary frequency Musculoskeletal Musculoskeletal: Denies back pain, extremity pain or neck pain Integumentary Denies rash or wounds Neurologic Neurologic: Denies headache(s), paresthesias or weakness EXAM Physical Exam Const Vital Signs: 03/08/25 20:31 03/08/25 21:20 03/08/25 21:26 Temperature 97.9 F 98.2 F Temperature Source Oral Oral Pulse Rate 69 90 Respiratory Rate 16 16 Blood Pressure 161/85 H 157/102 H Blood Pressure Mean 110 120 Pulse Ox 99 96 Oxygen Delivery Method Room Air Room Air Room Air 03/08/25 21:29 03/08/25 22:00 Temperature Temperature Source Pulse Rate 99 73 Respiratory Rate 20 H 15 Blood Pressure 130/117 H 142/109 H Blood Pressure Mean 121 120 Pulse Ox 97 97 Oxygen Delivery Method Room Air Room Air Positive well nourished and well developed General Appearance ED: well developed and NAD HEENT Reports moist mucous membranes HEENT Narrative: Bruising to the right eyelid, no eye muscle involvement. No laceration. normocephalic Neck full ROM Chest Wall inspection of chest normal and palpation of chest normal Chest: Negative for tenderness Resp normal respiratory effort and normal air movement Effort and Inspection: symmetric chest movement; Negative for respiratory distress Cardio regular rate, regular rhythm and no murmurs Peripheral Pulses: pulses 2+ throughout GI normal to inspection, nondistended, normoactive bowel sounds and non-tender Palpation: Negative for guarding or rebound tenderness present Extremity normal to inspection General Extremety ED: Negative for edema or tenderness General Extremity: Negative for edema Neuro no sensory deficits noted Neuro Narrative: Alert to person place could not tell me the year. NIH of 1 secondary to not able to tell me the age. She mention the month of March currently. Sensorium / Orientation: awake and alert Skin Skin Narrative: See above MDM MDM MDM Narrative Medical decision making narrative: Interventions / MDM: Differential diagnosis: Altered mental status, history of CVA, history of seizure. Diagnosis considered but do not suspect: N/A My EKG interpretation: Sinus rate of 82, no ST or T wave changes. Imaging independently reviewed and interpreted by myself: CT angiogram head and neck with no intracranial hemorrhage no LVO, there is right carotid stenosis of 70%. 1 view chest x-ray: No acute process. External documents reviewed: Reviewed previous ED visits this past October and July. During my evaluation July alert and orient person place cannot tell me the appropriate year. She had stroke symptoms had a seizure while at the MRI she was transferred to [facility]. In October she received TNK for concerns of stroke that had focal seizure activity again transferred to [facility]. Test considered but not ordered:N/A ED course: Patient reported altered mental status with aphasia currently has NIH of 1 for not knowing her age. No other focal deficits. Unclear last normal therefore not candidate for TNK. Nursing protocol initiated workup CT angiogram head and neck labs. EKG sinus rhythm. 1 view chest x-ray added interpreted myself shows no acute process. Urine added. 2244: CT angiogram no bleeds no LVO carotid stenosis 70% similar from to previous. Chest x-ray negative. Labs are stable. Further discussed with the patient since she lost her spouse this past January. Unclear on her baseline as she is seen for strokes in the past with being altered along with seizure activity. Spoke with hospitalist Dr. Lozano for admission to PCU. Re-evaluation: stable Disposition discussed with patient/family/significant other: Patient Case discussed with consulting clinician: Hospitalist This note was generated with [email or web address] dictation software. It may contain incorrect words, spelling, and punctuation that were not noted in checking the note before signing. Lab Data Attestation: I reviewed the patient's lab results. Labs: Laboratory Results - last 24 hr 03/08/25 21:16 WBC 9.2 RBC 4.61 Hgb 13.2 Hct 39.0 MCV 84.6 MCH 28.6 MCHC 33.8 RDW Std Deviation 45.2 H RDW Coeff of Edi 14.8 H Plt Count 252 MPV 9.5 Immature Gran % (Auto) 0.300 Neut % (Auto) 77.8 H Lymph % (Auto) 15.2 L [place] % (Auto) 6.0 Eos % (Auto) 0.3 Baso % (Auto) 0.4 Absolute Neuts (auto) 7.1 Absolute Lymphs (auto) 1.40 Nucleated RBC % 0 PT 14.0 INR 1.1 Sodium 139 Potassium 3.8 Chloride 104 Carbon Dioxide 21.5 Anion Gap 14 BUN 15 Creatinine 0.91 Estim Creat Clear Calc 35.97 L Est GFR (MDRD) Non-Af 63 BUN/Creatinine Ratio 16.7 Glucose 95 Calcium 9.8 Radiography Diagnostic Testing: Clinical Impression(s) from Imaging Studies Head/Neck CTA 03/08/25 21:32 IMPRESSION: 1. No acute intracranial abnormality. Atrophy and chronic ischemic changes as above. 2. Moderate short-segment stenosis of the proximal right ICA (up to 70%). 3. No large vessel occlusion of the [id number]. No sizable aneurysm. Reading Location: [facility] Discharge Plan Triage Chief Complaint: Confusion ED Provider: Faraz Martel Dx/Rx/DC Orders Clinical Impression: Encephalopathy, Stenosis of right carotid artery, History of seizure, History of CVA in adulthood Prescriptions: No Action levetiracetam 500 mg tablet 500 mg PO BID sertraline 100 mg tablet 100 mg PO DAILY pitavastatin calcium 1 mg tablet 1 mg PO DAILY losartan 50 mg tablet 50 mg PO DAILY hydrochlorothiazide 12.5 mg capsule 12.5 mg PO DAILY aspirin 81 mg Tablet,Chewable 81 mg PO BREAKFAST 30 Days Qty: 30 0RF Primary Care Provider: Clyde Downing Referrals: Clyde Downing MD [Primary Care Provider] - Print Language: [place] Disposition Disposition: Acute Care Hospital [facility]
[2025-03-08 22:54] VITALS: BP 142/109; PULSE 74; RESP 16; TEMP 37.5; O2SAT 100
[2025-03-08 23:11] LABS: Mucous, Urine 0 SEEN /hpf (<or=2+); Red Blood Cells-Urine 0 SEEN /hpf (0-5); White Blood Cells 0 SEEN /hpf (0-5)
--- OUTSIDE RECORDS SUMMARY | 2025-03-08 23:18 | XMS RPT_ITS | CCD ---
Author Organization [facility]ini[facility] Care Team Providers Care Registered Physical Therapist Name Role Phone Dr. Clyde Downing Primary Care Provider Dr. Clyde Downing Referring Provider Dr. Rachael Duque Attending Provider Dr. Clyde Downing Primary Care Provider Dr. Clyde Downing Referring Provider [phone] [place]ia, Dr. Cano Attending Provider [phone] Dr. Anselmo Potts Emergency Provider Dr. Jayy Vera Admit Provider Dr. Jayy Vera Attending Provider Dr. Jayy Vera Other Provider MD Marquez Greenberg Other Provider Unavailable Dr. Charlotte Pennington Other Provider MD Sharmila Rasmussen Other Provider Unavailable Dr. Thania Romero Other Provider [phone] Adela Flynn Other Provider Dr. Yaniv Greco Other Provider Dr. Yamilet Sandhu Other Provider Dr. Connor James Other Provider Dr. Ryan Leone Other Provider MD Amy Oconnor Other Provider [phone] Alejandro Moreno Other Provider Dr. Emerita Hernández Other Provider Dr. Jose [...] Ricardo Orr MD Attending Provider Dr. Song Yaenz DO Attending Provider Dr. Song Yanez DO Emergency Provider Dr. Clyde Downing MD Primary Care Provider Dr. Clyde Downing MD Attending Provider Dr. Clyde Downing MD Referring Provider Thania Veras Attending Provider Thania Veras Referring Provider Dr. Ricardo Orr MD Attending Provider Downing, [...] take 5-160 tablets by mouth once daily Ltoamohbiu-Ljzelerce-Tguisuath 5-160-12.5 mg tablet Discontinued 1 {tbl} PO daily December 20, 2017 12:00am February 08, 2024 2:15pm Start: 12-20-2017 End: 02-08-2024 take 1 tablet by mouth once daily Ppofkxrrfz-Ioqjbqtqb-Ldvyhgvsl Discontin ued 1 TABLET PO daily December [...] over 2 minutes. 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 [...] (MIRALAX) packet 17 g polyethylene glycol 3350 59033 mg powder for oral solution (1 source) [...] 10-31-2024 Senna (SENOKOT) tablet 8.6 mg sennosides, skilled nursing 8.6 mg oral tablet (1 source) Start: [...] Duplex ultrasound of carotid artery reportOrdered By: Rciardo Orr on 02-26-2025 Study report [facility] [address] [place] [address] Carotid Duplex Ultrasound 02/22/25 1411 MR#: [id number] Acct: [id number] Name: POONAM VELOZ Rep #:[id number] : 1940 84 From: Ricardo Schwab Attending Dr: SEEMA Hooker Stat us: REG CLI Ordering Dr: Thania Wisdom Date: Location: [facility] Sex: F C Admitted: Reason For Study [...] the left vertebral artery. Procedure Carotid Duplex 07656. This is a Carotid Duplex examination using [...] Date Dictated: 02/22/25 1411 Date Transcribed: 02/26/251511 [place] Supervisor: Signed [facility] Work Phone: Carotid Duplex Ultrasoundon 02-22-2025 Carotid Duplex Ultrasound [facility] Cardi[facility] Services [address] [place] [address] Carotid Duplex Ultrasound 02/22/25 141 MR#: [id number] Acct: [id number] Name: POONAM VELOZ Rep #: [id number] : 1940 84 From: Ricardo Orr MD Attending Dr: SEEMA Hooker Status: REG CLI Ordering Dr: Thania Wisdom Date: 02/22/25 Location: [facility] Sex: F C Admitted: Reason For Study [...] the left vertebral artery. Procedure Carotid Duplex 76032. This is a Carotid Duplex examination using [...] Dictated: 02/22/25 1411 Date Transcribed: 02/26/25 1512 [place] Supervisor: Signed Normal [facility] Anion gap in Serum or Plasma Ordered By: Clyde Downing on 01-07-2025 Anion gap [Moles/Vol] 11 mmol/L 5-15 [facility] BUN/creatinine ratioOrdered By: Clyde Downing on 01-07-2025 Urea nitrogen/Creatinine [Mass ratio] 20.4 mg/mg High 10-20 [facility] Bilirubin, totalOrdered By: Clyde Downing on 01-07-2025 Bilirubin [Mass/Vol] 0.31 mg/dL 0.00-1.30 [facility] Calculated very low density lipoprotein (VLDL) cholesterol measurementOrdered By: Clyde Downing on 01-07-2025 Calculated very low density lipoprotein (VLDL) cholesterol measurement 19 mg/dL - [facility] VLDL Cholesterol 19 mg/dL - [facility] Carbon dioxide, total [Moles /volume] in Central venous bloodOrdered By: Clyde Downing on 01-07-2025 CO2 [Moles/Vol] 22.3 mmol/L 21.0-32.0 [facility] Chloride assayOrdered By: Seema Downing on 01-07-2025 Chloride [Moles/Vol] 107 mmol/L 98-108 [facility] Comprehensive Metabolic Prof ilon 01-07-2025 Albumin [Mass/Vol] 4.1 g/dL Normal 3.4-4.8 [facility] Comment on above: Performed By: #### L 500.4100, L500.4050 #### [facility] Laboratory [address] [place], [address] Albumin/Globulin [Mass ratio] 1.4 {ratio} Normal 0.9-2.4 [facility] Comment on above: Performed By: #### L 500.4100, L500.4050 #### [facility] [address] [place], [address] ALK PHOS 90 U/L Normal 35-104 [facility] Comment on above: Performed By: #### L 500.4100, L500.4050 #### [facility] [address] [place], [address] ALT [Catalytic activity/Vol] 8 U/L Normal <=34 [facility] Comment on above: Performed By: #### L 500.4100, L500.4050 #### [facility] [address] [place], [address] AST [Catalytic activity/Vol] 19 U/L Normal <=31 [facility] Comment on above: Performed By: #### L 500.4100, L500.4050 #### [facility] [address] [place], [address] Bilirubin [Mass/Vol] 0.31 mg/dL Normal 0.00-1.30 [facility] Comment on above: Performed By: #### L 500.4100, L500.4050 #### [facility] [address] [place], [address] BUN/CRE 20.4 RATIO High 10-20 [facility] Comment on above: Performed By: #### L 500.4100, L500.4050 #### [facility] [address] [place], [address] Calcium [Mass/Vol] 9.7 mg/dL Normal 7.6-11.0 [facility] Comment on above: Performed By: #### L 500.4100, L500.4050 #### [facility] [address] [place], [address] Chloride [Moles/Vol] 107 mmol/L Normal 98-108 [facility] Comment on above: Performed By: #### L 500.4100, L500.4050 #### [facility] [address] [place], [address] CO2 [Moles/Vol] 22.3 mmol/L Normal 21.0-32.0 [facility] Comment on above: Performed By: #### L 500.4100, L500.4050 #### [facility] [address] [place], [address] Creatinine [Mass/Vol] 0.92 mg/dL Normal 0.70-1.20 [facility] Comment on above: Performed By: #### L 500.4100, L500.4050 #### [facility] [address] [place], [address] GAP 11 Normal 5-15 [facility] Comment on above: Performed By: #### L 500.4100, L500.4050 #### [facility] [address] [place], [address] GFR/1.73 sq M.predicted among non-blacks MDRD (S/P/Bld) [Vol rate/Area] 62 mL/min/{1.73_m2} Normal >60 [facility] Comment on above: Result Comment: mL/m in/1.73m2 CKD-EPI Creatinine Equation (2020) Performed By: #### L 500.4100, L500.4050 #### [facility] [address] [place], [address] Globulin (S) [Mass/Vol] 2.9 g/dL Normal 2.2-4.2 [facility] Comment on above: Performed By: #### L 500.4100, L500.4050 #### [facility] [address] [place], [address] Glucose [Mass/Vol] 96 mg/dL Normal 70-99 [facility] Comment on above: Performed By: #### L 500.4100, L500.4050 #### [facility] [address] [place], [address] Potassium [Moles/Vol] 4.3 mmol/L Normal 3.3-5.1 [facility] Comment on above: Performed By: #### L 500.4100, L500.4050 #### [facility] [address] [place], [address] Sodium [Moles/Vol] 140 mmol/L Normal 133-145 [facility] Comment on above: Performed By: #### L 500.4100, L500.4050 #### [facility] [address] [place], [address] T PROT 6.9 g/dL Normal 5.9-8.4 [facility] Comment on above: Performed By: #### L 500.4100, L500.4050 #### [facility] [address] [place], [address] Urea nitrogen [Mass/Vol] 19 mg/dL Normal 4-19 [facility] Comment on above: Performed By: #### L 500.4100, L500.4050 #### [facility] [address] [place], [address] GFR/1.73 sq M.predicted kellen g non-blacks MDRD (S/P/Bld) [Vol rate/Area]Ordered By: Clyde Downing on 01-07-2025 Estimated GFR (MDRD) Non-Af Amer 62 >60 [facility] Comment on above: mL/min/1.73m2 CKD-EP I Creatinine Equation (2020) Glomerular filtration rate ( GFR) estimation/1.73 sq m using serum, plasma, or whole bOrdered By: Clyde Downing on 01-07-2025 GFR/1.73 sq M.predicted among non-blacks MDRD (S/P/Bld) [Vol rate/Area] 62 mL/min/{1.73_m2} >60 [facility] Comment on above: mL/min/1.73m2 CKD-EP I Creatinine Equation (2020) LDL calc ser/plasOrdered By: Clyde Downing on 01-07-2025 Cholesterol in LDL [Mass/Vol] 85 mg/dL [facility] Comment on above: Llbirzqatv=511-129 m g/dL & Higher Quwb=584 mg/dL or greater LDL Cholesterol, Calculated 85 mg/dL [facility] Comment on above: Zaleocciaj=453-100 m g/dL & Higher Avgc=419 mg/dL or greater Laboratory - Chemistry and C hemistry - challengeOrdered By: Clyde Downing on 01-07-2025 AST [Catalytic activity/Vol] 19 U/L <32 [facility] Lipid Profileon 01-07-2025 CHOL:HDL 2.50 Normal [facility] Comment on above: Performed By: #### L 500.4100, L500.4050 #### [facility] [address] [place], [address] Cholesterol [Mass/Vol] 174 mg/dL Normal <=200 [facility] Comment on above: Result Comment: Chol esterol level, Desirable <200 mg/dL Borderline high cholesterol 200-239 mg/dL High cholesterol >=240 mg/dL Recommendations of the NCEP Adult Treatment Panel for the following risk-cutoff thresholds for the [place] Citizen population. Performed By: #### L 500.4100, L500.4050 #### [facility] [address] [place], [address] Cholesterol in HDL [Mass/Vol] 70 mg/dL Normal [facility] Comment on above: Result Comment: Henna onal Cholesterol Education Program (NCEP) guidelines: <40 mg/dL: Low HDL-cholesterol (major risk factor for CHD) >= 60 mg/dL: High HDL-cholesterol (negative risk factor for CHD) HDL-cholesterol is affected by a number of factors, e.g. smoking, exercise, hormones, sex and age. Performed By: #### L 500.4100, L500.4050 #### [facility] [address] [place], [address] Cholesterol in LDL [Mass/Vol] 85 mg/dL Normal [facility] Comment on above: Result Comment: Bord qtfpuv=648-338 mg/dL Higher Pbmp=533 mg/dL or greater Performed By: #### L 500.4100, L500.4050 #### [facility] [address] [place], [address] Cholesterol in VLDL [Mass/Vol] 19 mg/dL Normal 5-40 [facility] Comment on above: Performed By: #### L 500.4100, L500.4050 #### [facility] [address] [place], [address] Triglyceride [Mass/Vol] 95 mg/dL Normal [facility] Comment on above: Result Comment: The drugs N-Acetylcysteine and Metamizole may falsely depress this assay. Normal range: <150 mg/dL Borderline High: 150-199 mg/dL High: 200-499 mg/dL Very High: >500 mg/dL Performed By: #### L 500.4100, L500.4050 #### [facility] [address] [place], [address] Potassium (Unsp spec) [Mass/ Vol]Ordered By: Clyde Downing on 01-07-2025 Potassium [Moles/Vol] 4.3 mmol/L 3.3-5.1 [facility] Potassium measurement (mass/ volume)Ordered By: Clyde Downing on 01-07-2025 Potassium (Unsp spec) [Mass/Vol] 4.3 mmol/L 3.3-5.1 [facility] Screening total cholesterol/ high density lipoprotein (HDL) cholesterol ratioOrdered By: Clyde Downing on 01-07-2025 Cholesterol.total/Cholester ol in HDL [Mass ratio] 2.50 {ratio} [facility] Serum creatinine measurement (mass/volume)Ordered By: Clyde Downing on 01-07-2025 Creatinine [Mass/Vol] 0.92 mg/dL 0.70-1.20 [facility] Serum globulin measurementOr dered By: Clyde Downing on 01-07-2025 Globulin (S) [Mass/Vol] 2.9 g/dL 2.2-4.2 [facility] Serum glucose measurement (m ass/volume)Ordered By: Clyde Downing on 01-07-2025 Glucose [Mass/Vol] 96 mg/dL 70-99 [facility] Serum or plasma alanine barriga otransferase (ALT) measurementOrdered By: Clyde Downing on 01-07-2025 ALT [Catalytic activity/Vol] 8 U/L <35 [facility] Serum or plasma albumin willy urement (mass/volume)Ordered By: Clyde Downing on 01-07-2025 Albumin [Mass/Vol] 4.1 g/dL 3.4-4.8 [facility] Serum or plasma albumin/glob ulin mass ratioOrdered By: Clyde Downing on 01-07-2025 Albumin/Globulin [Mass ratio] 1.4 {ratio} 0.9-2.4 [facility] Serum or plasma alkaline vasile sphatase measurementOrdered By: Clyde Downing on 01-07-2025 ALP [Catalytic activity/Vol] 90 U/L 35-104 [facility] Serum or plasma calcium willy urement (mass/volume)Ordered By: Clyde Downing on 01-07-2025 Calcium [Mass/Vol] 9.7 mg/dL 7.6-11.0 [facility] Serum or plasma cholesterol in HDL measurement (mass/volume)Ordered By: Clyde Downing on 01-07-2025 Cholesterol in HDL [Mass/Vol] 70 mg/dL >40 [facility] Comment on above: National Cholesterol Education Program (NCEP) guidelines:<40 mg/dL: Low HDL-cholesterol (major risk factor for CHD)>= 60 mg/dL: High HDL-cholesterol (negative risk factor for CHD)HDL-cholesterol is affected by a number of factors, e.g. smoking, exercise, hormones, sex and age. Serum or plasma cholesterol measurement (mass/volume)Ordered By: Clyde Downing on 01-07-2025 Cholesterol [Mass/Vol] 174 mg/dL <201 [facility] Comment on above: Cholesterol level, D esirable <200 mg/dLBorderline high cholesterol 200-239 mg/dLHigh cholesterol >=240 mg/dLRecommendations of the NCEP Adult Treatment Panel for the following risk-cutoff thresholds for the [place] Citizen population. Serum or plasma urea nitroge n measurement (mass/volume)Ordered By: Clyde Downing on 01-07-2025 Urea nitrogen [Mass/Vol] 19 mg/dL 4-19 [facility] Sodium levelOrdered By: Clyde Downing on 01-07-2025 Sodium [Moles/Vol] 140 mmol/L 133-145 [facility] Total proteinOrdered By: Cecy Downing on 01-07-2025 Protein [Mass/Vol] 6.9 g/dL 5.9-8.4 [facility] Triglycerides measurementOrd ered By: Clyde Downing on 01-07-2025 Triglyceride [Mass/Vol] 95 mg/dL <199 [facility] Comment on above: The drugs N-Acetylcy steine and Metamizole may falsely depress this assay. Normal range: <150 mg/dLBorderline High: 150-199 mg/dLHigh: 200-499 mg/dLVery High: >500 mg/dL CBC AND ELECTRONIC DIFFon Basophils (Bld) [#/Vol] K/uL 0.00 - 0.15 K/uL [facility] Basophils/100 WBC (Bld) 0.4 % [facility] Differential cell count method Nom (Bld) Electronic Differential [facility] Eosinophils (Bld) [#/Vol] 0.09 10*3/uL 0. 00 - 0.42 K/uL [facility] Eosinophils/100 WBC (Bld) 1.2 % [facility] Erythrocyte distribution width (RBC) [Ratio] 14.8 % 10.8 - 14.9 % [facility] Hematocrit (Bld) [Volume fraction] 35.4 % 34.9 - 44.3 % [facility] Hemoglobin (Bld) [Mass/Vol] 11.9 g/dL 11.4 - 15.2 g/dL [facility] Immature granulocytes (Bld) [#/Vol] K/uL NINF - 0.08 K/uL [facility] Immature granulocytes/100 WBC (Bld) 0.3 % [facility] Lymphocytes (Bld) [#/Vol] 1.75 10*3/uL 1. 16 - 3.51 K/uL [facility] Lymphocytes/100 WBC (Bld) 22.8 % [facility] MCH (RBC) [Entitic mass] 27.5 pg 25. 9 - 33.9 pg [facility] MCHC (RBC) [Mass/Vol] 33.6 g/dL 31.4 - 35.9 g/dL [facility] MCV (RBC) [Entitic vol] 81.8 fL 79.6 - 97.7 fL [facility] Monocytes (Bld) [#/Vol] 0.62 10*3/uL 0.22 - 0.87 K/uL [facility] Monocytes/100 WBC (Bld) 8.1 % [facility] Neutrophils (Bld) [#/Vol] 5.15 10*3/uL 1. 64 - 7.28 K/uL [facility] Nucleated RBC/100 WBC (Bld) [Ratio] 0.0 % NINF [facility] Platelet mean volume (Bld) [Entitic vol] 8.8 fL 8.5 - 12.2 fL [facility] Platelets (Bld) [#/Vol] 265 10*3/uL 150 - 393 K/uL [facility] RBC (Bld) [#/Vol] 4.33 10*6/uL [facility] Segmented neutrophils/100 WBC (Bld) 67.2 % [facility] WBC (Bld) [#/Vol] 7.66 10*3/uL 3.99 - 11.19 K/uL [facility] Abs Baso Auto < Normal 0.00-0.15 [facility] Comment on above: Performed By: #### C HM7 #### [facility] (DEFAULT) [address] [place] [address] Basophils/100 WBC (Bld) 0.4 % Normal [facility] Comment on above: Performed By: #### C HM7 #### [facility] (DEFAULT) [address] [place] [address] DIFF STATUS Electronic Differential Normal [facility] Comment on above: Performed By: #### C HM7 #### [facility] (DEFAULT) [address] [place] [id number] Eosinophils (Bld) [#/Vol] 0.09 10*3/uL Normal 0.00-0.4 2 [facility] Comment on above: Performed By: #### Casimiro HM7 #### [facility] (DEFAULT) [address] [address] Eosinophils/100 WBC (Bld) 1.2 % Normal [facility] Comment on above: Performed By: #### Casimiro HM7 #### [facility] (DEFAULT) [address] [place] [address] Hematocrit (Bld) [Volume fraction] 35.4 % Normal 34.9-44.3 [facility] Comment on above: Performed By: #### Casimiro HM7 #### [facility] (DEFAULT) [address] [address] Hemoglobin (Bld) [Mass/Vol] 11.9 g/dL Normal 11.4-15. 2 [facility] Comment on above: Performed By: #### Casimiro HM7 #### [facility] (DEFAULT) [address] [place] [address] Immature Grans % 0.3 % Normal [facility] Comment on above: Performed By: #### Casimiro HM7 #### [facility] (DEFAULT) [address] [address] Immature Grans Absolute < Normal <=0.[address] [facility] Comment on above: Performed By: #### Casimiro HM7 #### [facility] (DEFAULT) [address] [place] [address] Lymphocytes (Bld) [#/Vol] 1.75 10*3/uL Normal 1.16-3.5 1 [facility] Comment on above: Performed By: #### Casimiro HM7 #### [facility] (DEFAULT) [address] [address] Lymphocytes/100 WBC (Bld) 22.8 % Normal [facility] Comment on above: Performed By: #### Casimiro HM7 #### [facility] (DEFAULT) [address] [place] [address] MCV (RBC) [Entitic vol] 81.8 fL Normal 79.6-97.[address] [facility] Comment on above: Performed By: #### C HM7 #### [facility] (DEFAULT) [address] [place] [address] Mean Cell Hgb 27.5 pg Normal 25.9-33.9 [facility] Comment on above: Performed By: #### C HM7 #### [facility] (DEFAULT) [address] [place] [address] Mean Cell Hgb Conc 33.6 g/dL Normal 31.4-35.9 [facility] Comment on above: Performed By: #### C HM7 #### [facility] (DEFAULT) [address] [place] [address] Monocytes (Bld) [#/Vol] 0.62 10*3/uL Normal 0.22-0.87 [facility] Comment on above: Performed By: #### C HM7 #### [facility] (DEFAULT) [address] [address] Monocytes/100 WBC (Bld) 8.1 % Normal [facility] Comment on above: Performed By: #### C HM7 #### [facility] (DEFAULT) [address] [place] [address] Nucleated RBC 0.0 /100 WBC Normal <=0.2 [facility] Comment on above: Performed By: #### C HM7 #### [facility] (DEFAULT) [address] [place] [address] Platelet mean volume (Bld) [Entitic vol] 8.8 fL Normal 8.5-12.2 [facility] Comment on above: Performed By: #### C HM7 #### [facility] (DEFAULT) [address] [place] [address] Platelets (Bld) [#/Vol] 265 10*3/uL Normal 150-393 [facility] Comment on above: Performed By: #### C HM7 #### [facility] (DEFAULT) [address] [place] [address] RBC (Bld) [#/Vol] 4.33 10*6/uL Normal 3.91-5.04 [facility] Comment on above: Performed By: #### Casimiro HM7 #### [facility] (DEFAULT) [address] [place] [address] RBC Distribution 14.8 % Normal 10.8-14.9 [facility] Comment on above: Performed By: #### C HM7 #### [facility] (DEFAULT) [address] [place] [address] Segs + Bands Auto 67.2 % Normal [facility] Comment on above: Performed By: #### Casimiro HM7 #### [facility] (DEFAULT) [address] [place] [address] Segs + Bands,Absolute Auto 5.15 K/uL Normal 1.64-7.28 [facility] Comment on above: Performed By: #### Casimiro HM7 #### [facility] (DEFAULT) [address] [place] [address] WBC (Bld) [#/Vol] 7.66 10*3/uL Normal 3.99-11.19 [facility] Comment on above: Performed By: #### C HM7 #### [facility] (DEFAULT) [address] [address] CHEM 7 (LYTES,BUN,CREA,GLUC) Ordered By: Jonas Chun on 10-31-2024 Anion gap [Moles/Vol] 14 mmol/L 7 - 17 mmol/L [facility] Chloride [Moles/Vol] 104 mmol/L 98 - 10 8 mmol/L [facility] CO2 [Moles/Vol] 24 mmol/L 21 - 31 mmol/L [facility] Creatinine [Mass/Vol] 0.78 mg/dL 0.50 - 1.20 mg/dL [facility] eGFR, CKD-EPI, Female 78 - PINF [facility] Comment on above: Reported eGFR is bas ed on the CKD-EPI 2020 equation using creatinine, age, and sex. Glucose [Mass/Vol] 119 mg/dL High 70 - 99 mg/dL [facility] Interpretation and review of laboratory results Abnormal [facility] Osmolality Calc [Osmolality] 292 [facility] Potassium [Moles/Vol] 3.6 mmol/L 3.5 - 5.0 mmol/L [facility] Sodium [Moles/Vol] 138 mmol/L 135 - 145 mmol/L [facility] Urea nitrogen [Mass/Vol] 20 mg/dL 7 - 25 mg/dL [facility] Urea nitrogen/Creatinine [Mass ratio] 26 mg/mg [facility] CHEM 7 (LYTES,BUN,CREA,GLUC) on 10-31-2024 Anion gap [Moles/Vol] 14 mmol/L Normal 7-17 [facility] Comment on above: Performed By: #### L [id number] #### [facility] (DEFAULT) [address] [address] Chloride [Moles/Vol] 104 mmol/L Normal 98-108 [facility] Comment on above: Performed By: #### L [email or web address] #### [facility] (DEFAULT) [address] [place] [address] CO2 [Moles/Vol] 24 mmol/L Normal 21-31 [facility] Comment on above: Performed By: #### L [email or web address] #### [facility] (DEFAULT) [address] [address] Creatinine [Mass/Vol] 0.78 mg/dL Normal 0.50-1.20 [facility] Comment on above: Performed By: #### L [email or web address] #### [facility] (DEFAULT) [address] [address] GFR/1.73 sq M.predicted among non-blacks MDRD (S/P/Bld) [Vol rate/Area] 76 mL/min/{1.73_m2} Normal >=60 [facility] Comment on above: Result Comment: Repo rted eGFR is based on the CKD-EPI 2020 equation using creatinine, age, and sex. Performed By: #### L [email or web address] #### [facility] (DEFAULT) [address] [place] [address] Glucose [Mass/Vol] 119 mg/dL High 70-99 [facility] Comment on above: Performed By: #### L [email or web address] #### [facility] (DEFAULT) [address] [place] [address] Osmolality [Osmolality] 292 mosm/kg Normal 278-305 [facility] Comment on above: Performed By: #### L [email or web address] #### [facility] (DEFAULT) [address] [place] [address] Potassium [Moles/Vol] 3.6 mmol/L Normal 3.5-5.0 [facility] Comment on above: Performed By: #### L [email or web address] #### [facility] (DEFAULT) [address] [place] [address] Sodium [Moles/Vol] 138 mmol/L Normal 135-145 [facility] Comment on above: Performed By: #### L [email or web address] #### [facility] (DEFAULT) [address] [place] [address] Urea nitrogen [Mass/Vol] 20 mg/dL Normal 7-25 [facility] Comment on above: Performed By: #### L [email or web address] #### [facility] (DEFAULT) [address] [place] [address] Urea nitrogen/Creatinine [Mass ratio] 26 mg/mg Normal [facility] Comment on above: Performed By: #### L [email or web address] #### [facility] (DEFAULT) [address] [place] [address] CBC AND ELECTRONIC DIFFon Basophils (Bld) [#/Vol] K/uL 0.00 - 0.15 K/uL [facility] Basophils/100 WBC (Bld) 0.2 % [facility] Differential cell count method Nom (Bld) Electronic Differential [facility] Eosinophils (Bld) [#/Vol] K/uL 0. 00 - 0.42 K/uL [facility] Eosinophils/100 WBC (Bld) 0.2 % [facility] Erythrocyte distribution width (RBC) [Ratio] 14.9 % 10.8 - 14.9 % [facility] Hematocrit (Bld) [Volume fraction] 37.4 % 34.9 - 44.3 % [facility] Hemoglobin (Bld) [Mass/Vol] 12.1 g/dL 11.4 - 15.2 g/dL [facility] Immature granulocytes (Bld) [#/Vol] K/uL NINF - 0.08 K/uL [facility] Immature granulocytes/100 WBC (Bld) 0.3 % [facility] Lymphocytes (Bld) [#/Vol] 1.79 10*3/uL 1. 16 - 3.51 K/uL [facility] Lymphocytes/100 WBC (Bld) 20.1 % [facility] MCH (RBC) [Entitic mass] 27.2 pg 25. 9 - 33.9 pg [facility] MCHC (RBC) [Mass/Vol] 32.4 g/dL 31.4 - 35.9 g/dL [facility] MCV (RBC) [Entitic vol] 84.0 fL 79.6 - 97.7 fL [facility] Monocytes (Bld) [#/Vol] 0.69 10*3/uL 0.22 - 0.87 K/uL [facility] Monocytes/100 WBC (Bld) 7.8 % [facility] Neutrophils (Bld) [#/Vol] 6.35 10*3/uL 1. 64 - 7.28 K/uL [facility] Nucleated RBC/100 WBC (Bld) [Ratio] 0.0 % NINF [facility] Platelet mean volume (Bld) [Entitic vol] 8.9 fL 8.5 - 12.2 fL [facility] Platelets (Bld) [#/Vol] 231 10*3/uL 150 - 393 K/uL [facility] RBC (Bld) [#/Vol] 4.45 10*6/uL [facility] Segmented neutrophils/100 WBC (Bld) 71.4 % [facility] WBC (Bld) [#/Vol] 8.90 10*3/uL 3.99 - 11.19 K/uL [facility] Abs Baso Auto < Normal 0.00-0.15 [facility] Comment on above: Performed By: #### L [id number] #### [facility] (DEFAULT) [address] [address] Abs Eos Auto < Normal 0.00-0.42 [facility] Comment on above: Performed By: #### L [id number] #### [facility] (DEFAULT) [address] [address] Basophils/100 WBC (Bld) 0.2 % Normal [facility] Comment on above: Performed By: #### L [id number] #### [facility] (DEFAULT) [address] [address] DIFF STATUS Electronic Differential Normal [facility] Comment on above: Performed By: #### L [id number] #### [facility] (DEFAULT) [address] [address] Eosinophils/100 WBC (Bld) 0.2 % Normal [facility] Comment on above: Performed By: #### L [id number] #### [facility] (DEFAULT) [address] [address] Hematocrit (Bld) [Volume fraction] 37.4 % Normal 34.9-44.3 [facility] Comment on above: Performed By: #### L [id number] #### [facility] (DEFAULT) [address] [address] Hemoglobin (Bld) [Mass/Vol] 12.1 g/dL Normal 11.4-15. 2 [facility] Comment on above: Performed By: #### L [id number] #### [facility] (DEFAULT) [address] [address] Immature Grans % 0.3 % Normal [facility] Comment on above: Performed By: #### L [id number] #### [facility] (DEFAULT) [address] [address] Immature Grans Absolute < Normal <=0.[address] [facility] Comment on above: Performed By: #### L [id number] #### [facility] (DEFAULT) [address] [address] Lymphocytes (Bld) [#/Vol] 1.79 10*3/uL Normal 1.16-3.5 1 [facility] Comment on above: Performed By: #### L [id number] #### [facility] (DEFAULT) [address] [address] Lymphocytes/100 WBC (Bld) 20.1 % Normal [facility] Comment on above: Performed By: #### L [id number] #### [facility] (DEFAULT) [address] [address] MCV (RBC) [Entitic vol] 84.0 fL Normal 79.6-97.[address] [facility] Comment on above: Performed By: #### L [id number] #### [facility] (DEFAULT) [address] [address] Mean Cell Hgb 27.2 pg Normal 25.9-33.9 [facility] Comment on above: Performed By: #### L [id number] #### [facility] (DEFAULT) [address] [address] Mean Cell Hgb Conc 32.4 g/dL Normal 31.4-35.9 [facility] Comment on above: Performed By: #### L [id number] #### [facility] (DEFAULT) [address] [address] Monocytes (Bld) [#/Vol] 0.69 10*3/uL Normal 0.22-0.87 [facility] Comment on above: Performed By: #### L [id number] #### [facility] (DEFAULT) [address] [address] Monocytes/100 WBC (Bld) 7.8 % Normal [facility] Comment on above: Performed By: #### L [id number] #### [facility] (DEFAULT) [address] [address] Nucleated RBC 0.0 /100 WBC Normal <=0.2 [facility] Comment on above: Performed By: #### L [id number] #### [facility] (DEFAULT) [address] [address] Platelet mean volume (Bld) [Entitic vol] 8.9 fL Normal 8.5-12.2 [facility] Comment on above: Performed By: #### L [id number] #### [facility] (DEFAULT) [address] [address] Platelets (Bld) [#/Vol] 231 10*3/uL Normal 150-393 [facility] Comment on above: Performed By: #### L [id number] #### [facility] (DEFAULT) [address] [address] RBC (Bld) [#/Vol] 4.45 10*6/uL Normal 3.91-5.04 [facility] Comment on above: Performed By: #### L [id number] #### [facility] (DEFAULT) [address] [address] RBC Distribution 14.9 % Normal 10.8-14.9 [facility] Comment on above: Performed By: #### L [id number] #### [facility] (DEFAULT) [address] [place] [address] Segs + Bands Auto 71.4 % Normal [facility] Comment on above: Performed By: #### L [id number] #### [facility] (DEFAULT) [address] [place] [address] Segs + Bands,Absolute Auto 6.35 K/uL Normal 1.64-7.28 [facility] Comment on above: Performed By: #### L [id number] #### [facility] (DEFAULT) [address] [place] [address] WBC (Bld) [#/Vol] 8.90 10*3/uL Normal 3.99-11.19 [facility] Comment on above: Performed By: #### L [id number] #### [facility] (DEFAULT) [address] [place] [address] CHEM 7 (LYTES,BUN,CREA,GLUC) Ordered By: Zenia Wong on 10-30-2024 Anion gap [Moles/Vol] 34 mmol/L High 7 - 17 mmol/L [facility] Chloride [Moles/Vol] 96 mmol/L Low 98 - 10 8 mmol/L [facility] CO2 [Moles/Vol] 17 mmol/L Low 21 - 31 mmol/L [facility] Creatinine [Mass/Vol] 0.59 mg/dL 0.50 - 1.20 mg/dL [facility] eGFR, CKD-EPI, Female 90 - PINF [facility] Comment on above: Reported eGFR is bas ed on the CKD-EPI 2020 equation using creatinine, age, and sex. Glucose [Mass/Vol] 81 mg/dL 70 - 99 mg/dL [facility] Interpretation and review of laboratory results Abnormal [facility] Osmolality Calc [Osmolality] 297 [facility] Potassium [Moles/Vol] 3.6 mmol/L 3.5 - 5.0 mmol/L [facility] Sodium [Moles/Vol] 143 mmol/L 135 - 145 mmol/L [facility] Urea nitrogen [Mass/Vol] 14 mg/dL 7 - 25 mg/dL [facility] Urea nitrogen/Creatinine [Mass ratio] 24 mg/mg [facility] CHEM 7 (LYTES,BUN,CREA,GLUC) on 10-30-2024 Anion gap [Moles/Vol] 34 mmol/L High 7-17 [facility] Comment on above: Performed By: #### L [id number] #### [facility] (DEFAULT) [address] [place] [address] Chloride [Moles/Vol] 96 mmol/L Low 98-108 [facility] Comment on above: Performed By: #### L [id number] #### [facility] (DEFAULT) [address] [place] [address] CO2 [Moles/Vol] 17 mmol/L Low 21-31 [facility] Comment on above: Performed By: #### L [id number] #### [facility] (DEFAULT) [address] [place] [address] Creatinine [Mass/Vol] 0.59 mg/dL Normal 0.50-1.20 [facility] Comment on above: Performed By: #### L [email or web address] #### [facility] (DEFAULT) [address] [place] [address] GFR/1.73 sq M.predicted among non-blacks MDRD (S/P/Bld) [Vol rate/Area] 90 mL/min/{1.73_m2} Normal >=60 [facility] Comment on above: Result Comment: Repo rted eGFR is based on the CKD-EPI 2020 equation using creatinine, age, and sex. Performed By: #### L [email or web address] #### [facility] (DEFAULT) [address] [place] [address] Glucose [Mass/Vol] 81 mg/dL Normal 70-99 [facility] Comment on above: Performed By: #### L [email or web address] #### [facility] (DEFAULT) [address] [place] [address] Osmolality [Osmolality] 297 mosm/kg Normal 278-305 [facility] Comment on above: Performed By: #### L [id number] #### [facility] (DEFAULT) [address] [place] [address] Potassium [Moles/Vol] 3.6 mmol/L Normal 3.5-5.0 [facility] Comment on above: Performed By: #### L [id number] #### [facility] (DEFAULT) [address] [place] [address] Sodium [Moles/Vol] 143 mmol/L Normal 135-145 [facility] Comment on above: Performed By: #### L [id number] #### [facility] (DEFAULT) [address] [place] [address] Urea nitrogen [Mass/Vol] 14 mg/dL Normal 7-25 [facility] Comment on above: Performed By: #### L [email or web address] #### [facility] (DEFAULT) [address] [place] [address] Urea nitrogen/Creatinine [Mass ratio] 24 mg/mg Normal [facility] Comment on above: Performed By: #### L [email or web address] #### [facility] (DEFAULT) [address] [place] [address] FIBRINOGEN, CLOTTABLEon 10-04 Fibrinogen Coag (PPP) [Mass/Vol] 461 mg/dL High 220 - 410 mg/dL [facility] Comment on above: Functional Fibrinoge n (activity) levels can be affected by direct thrombin inhibitors such as heparins (>2.0 IU/ml) and dabigatran. Abnormal results should be interpreted with caution. Interpretation and review of laboratory results Abnormal [facility] Fibrinogen levels m ay be altered by the normal physiologic changes of and should be interpreted considering reference ranges specific to gestational age. First Trimester: 244-510 mg/dL Second Trimester: 291-538 mg/dL Third Trimester/: 373-619 mg/dL Reference: Denise Jaime LG, Luis Miguel GUPTA. and laboratory studies: a reference table for clinicians. Obstet Gynecol 2009; 114:1326. [facility] Fibrinogen-Clottable 461 mg/dL High 220-410 [facility] Comment on above: Order Comment: Fibr [...] caution. Performed By: #### F IB #### [facility] (DEFAULT) [address] [address] HEMOGLOBIN A1Con 10-30-2024 Average glucose Estimated from glycated hemoglobin (Bld) [Mass/Vol] 123 mg/dL [facility] HbA1c (Bld) [Mass fraction] 5.9 % High 4.7 - 5.6 % [facility] Interpretation and review of laboratory results Abnormal [facility] Glucose [Mass/Vol] 123 mg/dL Normal [facility] Comment on above: Performed By: #### L [email or web address] #### [facility] (DEFAULT) [address] [address] Hemoglobin A1C HPLC 5.9 % High 4.7-5.6 [facility] Comment on above: Performed By: #### L ABHSTI1 #### [facility] (DEFAULT) [address] [address] LIPID PANEL WITH REFLEX TO M EASURED LDLon 10-30-2024 Cholesterol [Mass/Vol] 183 mg/dL NINF - 200 mg/dL [facility] Comment on above: [<200 mg/dL: Desirab le] [200-239 mg/dL: Borderline High] [>239 mg/dL: High] Cholesterol in HDL [Mass/Vol] 51 mg/dL 40 - PINF mg/dL [facility] Comment on above: [<40 mg/dL: Low (Hig h Risk)] [>59 mg/dL: High (Low Risk)] Cholesterol in LDL [Mass/Vol] 118 mg/dL High 0 - 99 mg/dL [facility] Comment on above: [<100 mg/dL: Optimal ] [100-129 mg/dL: Near Optimal] [130-159 mg/dL: Borderline High] [160-189 mg/dL: High] [>189 mg/dL: Very High] Cholesterol non HDL [Mass/Vol] 132 mg/dL High NINF - 130 mg/dL [facility] Cholesterol.total/Cholester ol in HDL [Mass ratio] 3.6 {ratio} NINF - 4.[address] [facility] Interpretation and review of laboratory results Abnormal [facility] Triglyceride [Mass/Vol] 70 mg/dL NINF - 150 mg/dL [facility] Comment on above: [<150 mg/dL: Desirab le] [150-199 mg/dL: Borderline] [200-499 mg/dL: High] [>500 mg/dL: Very High] [facility] Calculated LDL Cholesterol 118 mg/dL High 0-99 [facility] Comment on above: Result Comment: [<10 0 mg/dL: Optimal] [100-129 mg/dL: Near Optimal] [130-159 mg/dL: Borderline High] [160-189 mg/dL: High] [>189 mg/dL: Very High] Performed By: #### L [email or web address] #### [facility] (DEFAULT) [address] [place] [address] Cholesterol [Mass/Vol] 183 mg/dL Normal <200 [facility] Comment on above: Result Comment: [<20 0 mg/dL: Desirable] [200-239 mg/dL: Borderline High] [>239 mg/dL: High] Performed By: #### L [email or web address] #### [facility] (DEFAULT) [address] [place] [address] Cholesterol in HDL [Mass/Vol] 51 mg/dL Normal >=40 [facility] Comment on above: Result Comment: [<40 mg/dL: Low (High Risk)] [>59 mg/dL: High (Low Risk)] Performed By: #### L [email or web address] #### [facility] (DEFAULT) [address] [place] [address] Non HDL Cholesterol 132 mg/dL High <130 [facility] Comment on above: Performed By: #### L [email or web address] #### [facility] (DEFAULT) [address] [place] [address] Total Cholesterol/HDL Ratio 3.6 Normal <4.5 [facility] Comment on above: Performed By: #### L [email or web address] #### [facility] (DEFAULT) [address] [place] [address] Triglyceride [Mass/Vol] 70 mg/dL Normal <[address] [facility] Comment on above: Result Comment: [<15 0 mg/dL: Desirable] [150-199 mg/dL: Borderline] [200-499 mg/dL: High] [>500 mg/dL: Very High] Performed By: #### L [email or web address] #### [facility] (DEFAULT) [address] [place] [address] CARDIAC RHYTHM (SCANNED)on 0 10-29-2024 [facility] CBC AND ELECTRONIC DIFFon Basophils (Bld) [#/Vol] K/uL 0.00 - 0.15 K/uL [facility] Basophils/100 WBC (Bld) 0.3 % [facility] Differential cell count method Nom (Bld) Electronic Differential [facility] Eosinophils (Bld) [#/Vol] K/uL 0. 00 - 0.42 K/uL [facility] Eosinophils/100 WBC (Bld) 0.1 % [facility] Erythrocyte distribution width (RBC) [Ratio] 14.7 % 10.8 - 14.9 % [facility] Hematocrit (Bld) [Volume fraction] 34.8 % Low 34.9 - 44.3 % [facility] Hemoglobin (Bld) [Mass/Vol] 11.4 g/dL 11.4 - 15.2 g/dL [facility] Immature granulocytes (Bld) [#/Vol] K/uL NINF - 0.08 K/uL [facility] Immature granulocytes/100 WBC (Bld) 0.3 % [facility] Interpretation and review of laboratory results Abnormal [facility] Lymphocytes (Bld) [#/Vol] 1.20 10*3/uL 1. 16 - 3.51 K/uL [facility] Lymphocytes/100 WBC (Bld) 13.7 % [facility] MCH (RBC) [Entitic mass] 27.0 pg 25. 9 - 33.9 pg [facility] MCHC (RBC) [Mass/Vol] 32.8 g/dL 31.4 - 35.9 g/dL [facility] MCV (RBC) [Entitic vol] 82.3 fL 79.6 - 97.7 fL [facility] Monocytes (Bld) [#/Vol] 0.57 10*3/uL 0.22 - 0.87 K/uL [facility] Monocytes/100 WBC (Bld) 6.5 % [facility] Neutrophils (Bld) [#/Vol] 6.91 10*3/uL 1. 64 - 7.28 K/uL [facility] Nucleated RBC/100 WBC (Bld) [Ratio] 0.0 % [facility] Platelet mean volume (Bld) [Entitic vol] 9.1 fL 8.5 - 12.2 fL [facility] Platelets (Bld) [#/Vol] 266 10*3/uL 150 - 393 K/uL [facility] RBC (Bld) [#/Vol] 4.23 10*6/uL [facility] Segmented neutrophils/100 WBC (Bld) 79.1 % [facility] WBC (Bld) [#/Vol] 8.75 10*3/uL 3.99 - 11.19 K/uL [facility] Abs Baso Auto < Normal 0.00-0.15 [facility] Comment on above: Performed By: #### L [email or web address] #### [facility] (DEFAULT) [address] [address] Abs Eos Auto < Normal 0.00-0.42 [facility] Comment on above: Performed By: #### L [email or web address] #### [facility] (DEFAULT) [address] [address] Basophils/100 WBC (Bld) 0.3 % Normal [facility] Comment on above: Performed By: #### L [email or web address] #### [facility] (DEFAULT) [address] [address] DIFF STATUS Electronic Differential Normal [facility] Comment on above: Performed By: #### L [email or web address] #### [facility] (DEFAULT) [address] [address] Eosinophils/100 WBC (Bld) 0.1 % Normal [facility] Comment on above: Performed By: #### L [email or web address] #### [facility] (DEFAULT) [address] [address] Hematocrit (Bld) [Volume fraction] 34.8 % Low 34.9-44.3 [facility] Comment on above: Performed By: #### L ABHSTI1 #### [facility] (DEFAULT) [address] [address] Hemoglobin (Bld) [Mass/Vol] 11.4 g/dL Normal 11.4-15. 2 [facility] Comment on above: Performed By: #### L ABHSTI1 #### [facility] (DEFAULT) [address] [address] Immature Grans % 0.3 % Normal [facility] Comment on above: Performed By: #### L [email or web address] #### [facility] (DEFAULT) [address] [address] Immature Grans Absolute < Normal <=0.[address] [facility] Comment on above: Performed By: #### L [email or web address] #### [facility] (DEFAULT) [address] [address] Lymphocytes (Bld) [#/Vol] 1.20 10*3/uL Normal 1.16-3.5 1 [facility] Comment on above: Performed By: #### L [email or web address] #### [facility] (DEFAULT) [address] [address] Lymphocytes/100 WBC (Bld) 13.7 % Normal [facility] Comment on above: Performed By: #### L [email or web address] #### [facility] (DEFAULT) [address] [address] MCV (RBC) [Entitic vol] 82.3 fL Normal 79.6-97.7 [facility] Comment on above: Performed By: #### L [email or web address] #### [facility] (DEFAULT) [address] [address] Mean Cell Hgb 27.0 pg Normal 25.9-33.9 [facility] Comment on above: Performed By: #### L ABHSTI1 #### [facility] (DEFAULT) [address] [address] Mean Cell Hgb Conc 32.8 g/dL Normal 31.4-35.9 [facility] Comment on above: Performed By: #### L [email or web address] #### [facility] (DEFAULT) [address] [place] [address] Monocytes (Bld) [#/Vol] 0.57 10*3/uL Normal 0.22-0.87 [facility] Comment on above: Performed By: #### L ABHSTI1 #### [facility] (DEFAULT) [address] [place] [address] Monocytes/100 WBC (Bld) 6.5 % Normal [facility] Comment on above: Performed By: #### L ABHSTI1 #### [facility] (DEFAULT) [address] [place] [address] Nucleated RBC 0.0 /100 WBC Normal <=0.2 [facility] Comment on above: Performed By: #### L ABHSTI1 #### [facility] (DEFAULT) [address] [place] [address] Platelet mean volume (Bld) [Entitic vol] 9.1 fL Normal 8.5-12.2 [facility] Comment on above: Performed By: #### L ABHSTI1 #### [facility] (DEFAULT) [address] [place] [address] Platelets (Bld) [#/Vol] 266 10*3/uL Normal 150-393 [facility] Comment on above: Performed By: #### L ABHSTI1 #### [facility] (DEFAULT) [address] [place] [address] RBC (Bld) [#/Vol] 4.23 10*6/uL Normal 3.91-5.04 [facility] Comment on above: Performed By: #### L ABHSTI1 #### [facility] (DEFAULT) [address] [place] [address] RBC Distribution 14.7 % Normal 10.8-14.9 [facility] Comment on above: Performed By: #### L [email or web address] #### [facility] (DEFAULT) [address] [place] [address] Segs + Bands Auto 79.1 % Normal [facility] Comment on above: Performed By: #### L [email or web address] #### [facility] (DEFAULT) [address] [place] [address] Segs + Bands,Absolute Auto 6.91 K/uL Normal 1.64-7.28 [facility] Comment on above: Performed By: #### L [email or web address] #### [facility] General (DEFAULT) [address] [place] [address]68 WBC (Bld) [#/Vol] 8.75 10*3/uL Normal 3.99-11.19 [facility] Comment on above: Performed By: #### L [id number] #### [facility] (DEFAULT) [address] [place] [address]25[address] CHEM 7 (LYTES,BUN,CREA,GLUC) on 10-29-2024 Anion gap [Moles/Vol] 13 mmol/L 7 - 17 mmol/L [facility] Chloride [Moles/Vol] 101 mmol/L 98 - 10 8 mmol/L [facility] CO2 [Moles/Vol] 23 mmol/L 21 - 31 mmol/L [facility] Creatinine [Mass/Vol] 0.66 mg/dL 0.50 - 1.20 mg/dL [facility] eGFR, CKD-EPI, Female 88 - PINF [facility] Comment on above: Reported eGFR is bas ed on the CKD-EPI 2020 equation using creatinine, age, and sex. Glucose [Mass/Vol] 92 mg/dL 70 - 99 mg/dL [facility] Interpretation and review of laboratory results Abnormal [facility] Osmolality Calc [Osmolality] 279 [facility] Potassium [Moles/Vol] 3.7 mmol/L 3.5 - 5.0 mmol/L [facility] Sodium [Moles/Vol] 133 mmol/L Low 135 - 145 mmol/L [facility] Urea nitrogen [Mass/Vol] 13 mg/dL 7 - 25 mg/dL [facility] Urea nitrogen/Creatinine [Mass ratio] 20 mg/mg [facility] Anion gap [Moles/Vol] 13 mmol/L Normal 7-17 [facility] Comment on above: Performed By: #### L [id number] #### [facility] (DEFAULT) [address] [place] [address] 97749 Chloride [Moles/Vol] 101 mmol/L Normal 98-108 [facility] Comment on above: Performed By: #### L [id number] #### [facility] (DEFAULT) [address] [place] [address] CO2 [Moles/Vol] 23 mmol/L Normal 21-31 [facility] Comment on above: Performed By: #### L [id number] #### [facility] (DEFAULT) [address] [place] [address] 88572 Creatinine [Mass/Vol] 0.66 mg/dL Normal 0.50-1.20 [facility] Comment on above: Performed By: #### L [id number] #### [facility] (DEFAULT) [address] [place] [address] 70956 GFR/1.73 sq M.predicted among non-blacks MDRD (S/P/Bld) [Vol rate/Area] 88 mL/min/{1.73_m2} Normal >=60 [facility] Comment on above: Result Comment: Repo rted eGFR is based on the CKD-EPI 2020 equation using creatinine, age, and sex. Performed By: #### L [id number] #### [facility] (DEFAULT) [address] [place] [address]104 Glucose [Mass/Vol] 92 mg/dL Normal 70-99 [facility] Comment on above: Performed By: #### L [id number] #### [facility] (DEFAULT) [address] [place] [address] 56764 Osmolality [Osmolality] 279 mosm/kg Normal 278-305 [facility] Comment on above: Performed By: #### L [id number] #### [facility] (DEFAULT) [address] [place] [address] Potassium [Moles/Vol] 3.7 mmol/L Normal 3.5-5.0 [facility] Comment on above: Performed By: #### L [id number] #### [facility] (DEFAULT) [address] [place] [address] Sodium [Moles/Vol] 133 mmol/L Low 135-145 [facility] Comment on above: Performed By: #### L [id number] #### [facility] (DEFAULT) [address] [place] [address] Urea nitrogen [Mass/Vol] 13 mg/dL Normal 7-25 [facility] Comment on above: Performed By: #### L [id number] #### [facility] (DEFAULT) [address] [place] [address] Urea nitrogen/Creatinine [Mass ratio] 20 mg/mg Normal [facility] Comment on above: Performed By: #### L [id number] #### [facility] (DEFAULT) [address] [place] [address] HEAD WITHOUT CONTRASTon 0 10-29-2024 CT [...] the left MCA inferior division territory. Normal [facility] CT Head WO contraston 2024 IMPRESSION: [...] in the left MCA inferior division territory. 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 [facility] Radiology Study observation (narrative) [facility] MR Brain WO contrastOrdered By: Buddy Núñez on 10-29-2024 [facility] Work Phone: MRI BRAIN WITHOUT CONTRASTon 10-29-2024 [...] large remote left MCA territory infarct. Normal [facility] EXTRA MICROon 10-28-2024 [facility] GLUCOSE POCon 10-28-2024 Glucose [Mass/Vol] 105 mg/dL High 70 - 99 mg/dL [facility] Comment on above: Notified RNread back Interpretation and review of laboratory results Abnormal [facility] POC Sample Type CAPBL [facility] Test performed at address of the patient encounter. [facility] MAGNESIUMon 10-28-2024 Magnesium [Mass/Vol] 2.0 mg/dL 1.6 - 2 .6 mg/dL [facility] Magnesium [Mass/Vol] 2.0 mg/dL Normal 1.6-2.6 [facility] Comment on above: Performed By: #### L [id number] #### [facility] (DEFAULT) [address] [place] [address] No Panel Informationon 10-28 Interpretation and review of laboratory results Normal [facility] PHOSPHATE, INORGANICon 10-28 Phosphate [Mass/Vol] 2.7 mg/dL 2.2 - 4 .6 mg/dL [facility] Phosphorous 2.7 mg/dL Normal 2.2-4.6 [facility] Comment on above: Performed By: #### L [id number] #### [facility] (DEFAULT) [address] [place] [address] 12 Lead EKGon 10-27-2024 12 Lead EKG [facility] Cardiovascular Services [address] [place] [address] 12 Lead EKG 10/27/24 1704 MR#: [id number] Acct: [id number] Name: POONAM VELOZ Rep #: [id number] : 1940 84 From: Preston Martinez MD [...] Normal ECG Confirmed by SHEREEN LEO, YAMILETH ([id number]), publications editor RICKY HIGUERA ([id number]) on 10/30/2024 6:13:44 AM Referred By: Confirmed By: YAMILETH MARTINEZ MD 10/30/24 0613 Date Preston Martinez MD CC: Dr. Clyde Downing MD; Dr. Song Yanez DO Signed Normal [facility] Absolute neutrophil countOrd ered By: Song Yanez on 10-27-2024 Neutrophils (Bld) [#/Vol] 4.3 10*3/uL 2.0-7.7 [facility] Alcohol, Blood (Medical)-Ser umon 10-27-2024 SERUM ETOH < 3.0 Normal [facility] Comment on above: Result Comment: The serum:whole blood ethanol ratio is approximately 1.14 and varies slightly with hematocrit. Medical Alcohol reference interval and critical value in non-tolerant individuals; 50 - 100 Impairment 100 Intoxication 100 - 250 Severe Poisoning 250 - 400 Deep/possible fatal coma Performed By: #### L 501.9100 #### [facility] Laboratory [address] [place], [address] Basic Metabolic Profile (BMP )on 10-27-2024 BUN/CRE 28.9 RATIO High 10-20 [facility] Comment on above: Order Comment: 'TROP ' Serial specimen #1, #2 or #3: 1 Performed By: #### L 501.080 #### [facility] [address] [place], [address] CA,Total 9.2 mg/dL Normal 8.5-10.1 [facility] Comment on above: Order Comment: 'TROP ' Serial specimen #1, #2 or #3: 1 Performed By: #### L 501.080 #### [facility] [address] [place], [address] ECRCL 41.78 ml/min Normal [facility] Comment on above: Order Comment: 'TROP ' Serial specimen #1, #2 or #3: 1 Performed By: #### L 501.080 #### [facility] [address] [place], [address] EST GFR - AA 81 mL/min Normal >60 [facility] Comment on above: Order Comment: 'TROP ' Serial specimen #1, #2 or #3: 1 Result Comment: Afri can [place] Citizen GFR Calc Performed By: #### L 501.080 #### [facility] [address] [place], [address] GAP 7 Normal 5-15 [facility] Comment on above: Order Comment: 'TROP ' Serial specimen #1, #2 or #3: 1 Performed By: #### L 501.080 #### [facility] [address] [place], [address] GFR/1.73 sq M.predicted among non-blacks MDRD (S/P/Bld) [Vol rate/Area] 67 mL/min/{1.73_m2} Normal >60 [facility] Comment on above: Order Comment: 'TROP ' Serial specimen #1, #2 or #3: 1 Result Comment: Non- GFR Calc Performed By: #### L 501.080 #### [facility] [address] [facility] [place], [address] Basophil percentageOrdered B y: Song Yanez on 10-27-2024 Basophils/100 WBC (Bld) 0.3 % 0-1 [facility] Bedside Glucoseon 10-27-2024 FINGERSTICK GLU 93 mg/dL Normal 74-106 [facility] Comment on above: Result Comment: [place] OF PATIENT CARE PER NURSING PROTOCOL Performed By: #### L 501.080 #### [facility] [address] [facility] [address] [place], [place], [address] Bilirubin Test strip Ql (U)O rdered By: Song Yanez on 10-27-2024 Bilirubin Ql (U) Negative Negative [facility] Blood urea nitrogen (BUN)/cr eatinine ratioOrdered By: Snog Yanez on 10-27-2024 Urea nitrogen/Creatinine [Mass ratio] 28.9 mg/mg High 10-20 [facility] Brain/Head without Contrasto n 10-27-2024 Brain/Head without Contrast [facility] Imaging Services [address] [place], [place] [id number] Brain/Head without Contrast MR#: [id number] Acct: [id number] Name: POONAM VELOZ Rep #: [id number] : 1940 F 84 From: Jeet cShwab PCP: Dr. Clyde Downing MD Status: DEP ER Study: Brain/Head without Contrast Date of Exam: 10/04 02/24 Exam# [id number] Ordering Dr: Song Yanez DO [id number] STUDY: CT BRAIN WITHOUT CONTRAST REASON FOR [...] Clyde Downing MD; Dr. Song Yanez DO [place] Supervisor: Signed Normal [facility] CBC AND ELECTRONIC DIFFon Basophils (Bld) [#/Vol] K/uL 0.00 - 0.15 K/uL [facility] Basophils/100 WBC (Bld) 0.3 % [facility] Differential cell count method Nom (Bld) Electronic Differential [facility] Eosinophils (Bld) [#/Vol] K/uL 0. 00 - 0.42 K/uL [facility] Eosinophils/100 WBC (Bld) 0.1 % [facility] Erythrocyte distribution width (RBC) [Ratio] 15.0 % High 10.8 - 14.9 % [facility] Hematocrit (Bld) [Volume fraction] 35.8 % 34.9 - 44.3 % [facility] Hemoglobin (Bld) [Mass/Vol] 11.7 g/dL 11.4 - 15.2 g/dL [facility] Immature granulocytes (Bld) [#/Vol] K/uL NINF - 0.08 K/uL [facility] Immature granulocytes/100 WBC (Bld) 0.4 % [facility] Interpretation and review of laboratory results Abnormal [facility] Lymphocytes (Bld) [#/Vol] 1.37 10*3/uL 1. 16 - 3.51 K/uL [facility] Lymphocytes/100 WBC (Bld) 17.3 % [facility] MCH (RBC) [Entitic mass] 26.8 pg 25. 9 - 33.9 pg [facility] MCHC (RBC) [Mass/Vol] 32.7 g/dL 31.4 - 35.9 g/dL [facility] MCV (RBC) [Entitic vol] 81.9 fL 79.6 - 97.7 fL [facility] Monocytes (Bld) [#/Vol] 0.34 10*3/uL 0.22 - 0.87 K/uL [facility] Monocytes/100 WBC (Bld) 4.3 % [facility] Neutrophils (Bld) [#/Vol] 6.15 10*3/uL 1. 64 - 7.28 K/uL [facility] Nucleated RBC/100 WBC (Bld) [Ratio] 0.0 % NINF [facility] Platelet mean volume (Bld) [Entitic vol] 8.9 fL 8.5 - 12.2 fL [facility] Platelets (Bld) [#/Vol] 278 10*3/uL 150 - 393 K/uL [facility] RBC (Bld) [#/Vol] 4.37 10*6/uL [facility] Segmented neutrophils/100 WBC (Bld) 77.6 % [facility] WBC (Bld) [#/Vol] 7.92 10*3/uL 3.99 - 11.19 K/uL [facility] Abs Baso Auto < Normal 0.00-0.15 [facility] Comment on above: Performed By: #### L [id number] #### [facility] (DEFAULT) [address] [address] Abs Eos Auto < Normal 0.00-0.42 [facility] Comment on above: Performed By: #### L [id number] #### [facility] (DEFAULT) [address] [place] [address] 98658 Basophils/100 WBC (Bld) 0.3 % Normal [facility] Comment on above: Performed By: #### L [id number] #### [facility] (DEFAULT) [address] [place] [address] 60582 DIFF STATUS Electronic Differential Normal [facility] Comment on above: Performed By: #### L [id number] #### [facility] (DEFAULT) [address] [address] Eosinophils/100 WBC (Bld) 0.1 % Normal [facility] Comment on above: Performed By: #### L [id number] #### [facility] (DEFAULT) [address] [address] Hematocrit (Bld) [Volume fraction] 35.8 % Normal 34.9-44.3 [facility] Comment on above: Performed By: #### L [id number] #### [facility] (DEFAULT) [address] [place] [address]761 Hemoglobin (Bld) [Mass/Vol] 11.7 g/dL Normal 11.4-15. 2 [facility] Comment on above: Performed By: #### L [id number] #### [facility] (DEFAULT) [address] [place] [address] 88066 Immature Grans % 0.4 % Normal [facility] Comment on above: Performed By: #### L [id number] #### [facility] (DEFAULT) [address] [place] [address] 37781 Immature Grans Absolute < Normal <=0.[address] [facility] Comment on above: Performed By: #### L [id number] #### [facility] (DEFAULT) [address] [place] [address] 07938 Lymphocytes (Bld) [#/Vol] 1.37 10*3/uL Normal 1.16-3.5 1 [facility] Comment on above: Performed By: #### L [id number] #### [facility] (DEFAULT) [address] [address] Lymphocytes/100 WBC (Bld) 17.3 % Normal [facility] Comment on above: Performed By: #### L [id number] #### [facility] (DEFAULT) [address] [place] [address] 13924 MCV (RBC) [Entitic vol] 81.9 fL Normal 79.6-97.[address] [facility] Comment on above: Performed By: #### L [id number] #### [facility] (DEFAULT) [address] [place] [address] 07863 Mean Cell Hgb 26.8 pg Normal 25.9-33.9 [facility] Comment on above: Performed By: #### L AB980 #### [facility] (DEFAULT) [address] [place] [address] 33609 Mean Cell Hgb Conc 32.7 g/dL Normal 31.4-35.9 [facility] Comment on above: Performed By: #### L AB980 #### [facility] (DEFAULT) [address] [place] [address] 42362 Monocytes (Bld) [#/Vol] 0.34 10*3/uL Normal 0.22-0.87 [facility] Comment on above: Performed By: #### L [id number] #### [facility] (DEFAULT) [address] [place] [address] 00117 Monocytes/100 WBC (Bld) 4.3 % Normal [facility] Comment on above: Performed By: #### L [id number] #### [facility] (DEFAULT) [address] [address] Nucleated RBC 0.0 /100 WBC Normal <=0.2 [facility] Comment on above: Performed By: #### L AB980 #### [facility] (DEFAULT) [address] [place] [address] 40777 Platelet mean volume (Bld) [Entitic vol] 8.9 fL Normal 8.5-12.2 [facility] Comment on above: Performed By: #### L AB980 #### [facility] (DEFAULT) [address] [address] Platelets (Bld) [#/Vol] 278 10*3/uL Normal 150-393 [facility] Comment on above: Performed By: #### L AB980 #### [facility] (DEFAULT) [address] [address] RBC (Bld) [#/Vol] 4.37 10*6/uL Normal 3.91-5.04 [facility] Comment on above: Performed By: #### L AB980 #### [facility] (DEFAULT) [address] [address] RBC Distribution 15.0 % High 10.8-14.9 [facility] Comment on above: Performed By: #### L AB980 #### [facility] (DEFAULT) [address] [place] [address] 77532 Segs + Bands Auto 77.6 % Normal [facility] Comment on above: Performed By: #### L AB980 #### [facility] (DEFAULT) [address] [place] [address] 61277 Segs + Bands,Absolute Auto 6.15 K/uL Normal 1.64-7.28 [facility] Comment on above: Performed By: #### L AB980 #### [facility] (DEFAULT) [address] [place] [address] 15173 WBC (Bld) [#/Vol] 7.92 10*3/uL Normal 3.99-11.19 [facility] Comment on above: Performed By: #### L AB980 #### [facility] (DEFAULT) [address] [place] [address] 91559 CBC W/Diff, Automatedon 10-04 Absolute Lymph 2.01 X10 3/uL Normal 0.83-4.51 [facility] Comment on above: Performed By: #### L 501.080 #### [facility] [address] [place], [address] Absolute Neut 4.3 X10 3/uL Normal 2.0-7.7 [facility] Comment on above: Performed By: #### L 501.080 #### [facility] [address] [place], [address] Basophils/100 WBC (Bld) 0.3 % Normal 0-1 [facility] Comment on above: Performed By: #### L 501.080 #### [facility] [address] [place], [address] Eosinophils/100 WBC (Bld) 1.1 % Normal 0-5 [facility] Comment on above: Performed By: #### L 501.080 #### [facility] [address] [place], [address] Erythrocyte distribution width (RBC) [Ratio] 15.0 % High 11.6-14.6 [facility] Comment on above: Performed By: #### L 501.080 #### [facility] [address] [place], [address] Hematocrit (Bld) [Volume fraction] 34.5 % Low 37-47 [facility] Comment on above: Performed By: #### L 501.080 #### [facility] [address] [place], [address] Hemoglobin (Bld) [Mass/Vol] 11.3 g/dL Low 12.0-15. 0 [facility] Comment on above: Performed By: #### L 501.080 #### [facility] [address] [place], [address] IG% 0.300 Normal 0.0-0.9 [facility] Comment on above: Result Comment: IG% - Immature Granulocytes (promyelocytes, myelocytes and metamyelocytes) > 1% indicates that a LEFT SHIFT is Present. Performed By: #### L 501.080 #### [facility] [address] [place], [address] Lymphocytes/100 WBC (Bld) 28.7 % Normal 19-41 [facility] Comment on above: Performed By: #### L 501.080 #### [facility] [address] [place], [address] MCH (RBC) [Entitic mass] 27.3 pg Normal 27.0-32.0 [facility] Comment on above: Performed By: #### L 501.080 #### [facility] [address] [place], [address] MCHC (RBC) [Mass/Vol] 32.8 g/dL Normal 32-36 [facility] Comment on above: Performed By: #### L 501.080 #### [facility] [address] [place], [address] MCV (RBC) [Entitic vol] 83.3 fL Normal 81-99 [facility] Comment on above: Performed By: #### L 501.080 #### [facility] [address] [place], [address] Monocytes/100 WBC (Bld) 8.4 % Normal 0-10 [facility] Comment on above: Performed By: #### L 501.080 #### [facility] [address] [place], [address] Neutrophils/100 WBC (Bld) 61.2 % Normal 47-70 [facility] Comment on above: Performed By: #### L 501.080 #### [facility] [address] [place], [address] Nucleated RBC (Bld) [#/Vol] 0 10*3/uL Normal 0-5 [facility] Comment on above: Performed By: #### L 501.080 #### [facility] [address] [place], [address] Platelet mean volume (Bld) [Entitic vol] 9.1 fL Normal 6.2-12.0 [facility] Comment on above: Performed By: #### L 501.080 #### [facility] [address] [place], [address] Platelets (Bld) [#/Vol] 279 10*3/uL Normal 150-450 [facility] Comment on above: Performed By: #### L 501.080 #### [facility] [address] [place], [address] RBC (Bld) [#/Vol] 4.14 10*6/uL Low 4.2-5.4 [facility] Comment on above: Performed By: #### L 501.080 #### [facility] [address] [place], [place], [address] RDW SD 45.5 fl High 35.1-43.9 [facility] Comment on above: Performed By: #### L 501.080 #### [facility] [address] [place], [place], [address] WBC (Bld) [#/Vol] 7.0 10*3/uL Normal 4.4-11.0 [facility] Comment on above: Performed By: #### L 501.080 #### [facility] [address] [place], [address] CHM 7 - EDon 10-27-2024 Anion gap [Moles/Vol] 12 mmol/L 7 - 17 mmol/L [facility] Chloride [Moles/Vol] 103 mmol/L 98 - 10 8 mmol/L [facility] CO2 [Moles/Vol] 26 mmol/L 21 - 31 mmol/L [facility] Creatinine [Mass/Vol] 0.81 mg/dL 0.50 - 1.20 mg/dL [facility] eGFR, CKD-EPI, Female 72 - PINF [facility] Comment on above: Reported eGFR is bas ed on the CKD-EPI 2020 equation using creatinine, age, and sex. Glucose [Mass/Vol] 100 mg/dL High 70 - 99 mg/dL [facility] Interpretation and review of laboratory results Abnormal [facility] Osmolality Calc [Osmolality] 290 [facility] Potassium [Moles/Vol] 4.1 mmol/L 3.5 - 5.0 mmol/L [facility] Sodium [Moles/Vol] 137 mmol/L 135 - 145 mmol/L [facility] Urea nitrogen [Mass/Vol] 21 mg/dL 7 - 25 mg/dL [facility] Urea nitrogen/Creatinine [Mass ratio] 26 mg/mg [facility] Anion gap [Moles/Vol] 12 mmol/L Normal 7-17 [facility] Comment on above: Performed By: #### C HM7 #### [facility] (DEFAULT) [address] [place] [address] Chloride [Moles/Vol] 103 mmol/L Normal 98-108 [facility] Comment on above: Performed By: #### C HM7 #### [facility] (DEFAULT) [address] [place] [address] CO2 [Moles/Vol] 26 mmol/L Normal 21-31 [facility] Comment on above: Performed By: #### C HM7 #### [facility] (DEFAULT) [address] [place] [address] Creatinine [Mass/Vol] 0.81 mg/dL Normal 0.50-1.20 [facility] Comment on above: Performed By: #### C HM7 #### [facility] (DEFAULT) [address] [place] [address] GFR/1.73 sq M.predicted among non-blacks MDRD (S/P/Bld) [Vol rate/Area] 72 mL/min/{1.73_m2} Normal >=60 [facility] Comment on above: Result Comment: Repo rted eGFR is based on the CKD-EPI 2020 equation using creatinine, age, and sex. Performed By: #### C HM7 #### [facility] (DEFAULT) [address] [place] [address] Glucose [Mass/Vol] 100 mg/dL High 70-99 [facility] Comment on above: Performed By: #### C HM7 #### [facility] (DEFAULT) [address] [place] [address] Osmolality [Osmolality] 290 mosm/kg Normal 278-305 [facility] [facility] Comment on above: Performed By: #### C HM7 #### [facility] (DEFAULT) [address] [place] [address] Potassium [Moles/Vol] 4.1 mmol/L Normal 3.5-5.0 [facility] Comment on above: Performed By: #### C HM7 #### [facility] (DEFAULT) [address] [place] [address] Sodium [Moles/Vol] 137 mmol/L Normal 135-145 [facility] Comment on above: Performed By: #### C HM7 #### [facility] (DEFAULT) [address] [place] [address] Urea nitrogen [Mass/Vol] 21 mg/dL Normal 7-25 [facility] Comment on above: Performed By: #### C HM7 #### [facility] (DEFAULT) [address] [place] [address] Urea nitrogen/Creatinine [Mass ratio] 26 mg/mg Normal [facility] Comment on above: Performed By: #### C HM7 #### [facility] (DEFAULT) [address] [place] [address] CT Head limitedon 10-27-2024 IMPRESSION: 1. No [...] I have reviewed and approved this report. [facility] Radiology Study observation (narrative) [facility] CT Head limitedOrdered By: Susie Hastings on 10-27-[address] [facility] [address] STROKE HEAD-STROKE ALERT ONLYon 10-27-2024 CT [...] have reviewed and approved this report. Normal [facility] Carbon dioxide measurementOr dered By: oSng Yanez on 10-27-2024 CO2 [Moles/Vol] 26.0 mmol/L Normal 21.0-32.0 [facility] Comment on above: Order Comment: 'TROP ' Serial specimen #1, #2 or #3: 1 Performed By: #### L 501.080 #### [facility] Laboratory [address] [facility]. [place], [place], [address] Chest 1 Viewon 10-27-2024 Chest 1 View [facility] Imaging Services [address] [place], [place] [address] Chest 1 View MR#: [id number] Acct: [id number] Name: POONAM VELOZ Rep #: [id number] : 1940 F 84 From: Jeet Schwab PCP: Dr. Clyde Downing MD Status: DEP ER Study: Chest 1 View Date of Exam: 10/27/24 Exam# [id number] Ordering Dr: Song Yanez DO [id number] STUDY: X-RAY CHEST REASON FOR EXAM: Female, [...] Electronically Signed: Jeet Fischer MD at 20:28 [facility] , CC: Dr. Clyde Downing MD; Dr. Song Yanez DO [place] Supervisor: Signed Normal [facility] Chloride measurementOrdered By: Song Yanez on 10-27-2024 Chloride [Moles/Vol] 103 mmol/L Normal 98-107 [facility] Comment on above: Order Comment: 'TROP ' Serial specimen #1, #2 or #3: 1 Performed By: #### L 501.080 #### [facility] Laboratory [address] [facility] [place], [address] Emergency Department Summary on 10-27-2024 Emergency Department Summary [facility] Medical Records Department [address] [place] [address] Emergency Department Summary 10/27/24 MR#: [id number] Acct: [id number] Name: POONAM VELOZ Rep #: [id number] : 1940 84 From: Song Yanez DO PCP: Dr. Clyde Downing MD Status:DEP ER Location: ED HPI History of Present Illness Chief Complaint: Stroke Alert [facility] Medical History DDD (degenerative disc disease), lumbar [...] Ox 98 Oxygen Delivery Method Room Air [facility] Narrative Medical decision making narrative: HISTORY OF [...] no JVD, (more content not included)... Normal [facility] Eosinophil percentageOrdered By: Song Yanez on 10-27-2024 Eosinophils/100 WBC (Bld) 1.1 % 0-5 [facility] Epithelial cells.squamous LM Ql (Urine sed)Ordered By: Song Yanez on 10-27-2024 Epithelial cells.squamous LM.HPF (Urine sed) [#/Area] 0 /[HPF] 5-10 [facility] Erythrocyte distribution wid th (RBC) [Ratio]Ordered By: Song Yanez on 10-27-2024 Erythrocyte distribution width (RBC) [Entitic vol] 45.5 fL High 35.1-43.9 [facility] Erythrocyte distribution wid th ratioOrdered By: Song Yanez on 10-27-2024 Erythrocyte distribution width (RBC) [Ratio] 15.0 % High 11.6-14.6 [facility] Estimated glomerular filtrat ion rate (GFR) AmericanOrdered By: Song Yanez on 10-27-2024 Estimated GFR (MDRD) Amer 81 mL/min >60 [facility] Comment on above: GFR Calc Estimation of creatinine shira aranceOrdered By: Song Yanez on 10-27-2024 Estimated Creatinine Clearance Calc 41.78 ml/min [facility] FIBRINOGEN, CLOTTABLEon 10-04 Fibrinogen Coag (PPP) [Mass/Vol] 433 mg/dL High 220 - 410 mg/dL [facility] Comment on above: Functional Fibrinoge n (activity) levels can be affected by direct thrombin inhibitors such as heparins (>2.0 IU/ml) and dabigatran. Abnormal results should be interpreted with caution. Interpretation and review of laboratory results Abnormal [facility] Fibrinogen levels m ay be altered by the normal physiologic changes of and should be interpreted considering reference ranges specific to gestational age. First Trimester: 244-510 mg/dL Second Trimester: 291-538 mg/dL Third Trimester/: 373-619 mg/dL Reference: Rahel M, Denise LG, Luis Miguel FG. and laboratory studies: a reference table for clinicians. Obstet Gynecol 2009; 114:1326. [facility] Fibrinogen-Clottable 433 mg/dL High 220-410 [facility] Comment on above: Order Comment: Acute Coronary Syndrome (ACS): Initial Evaluation and Management: [email or web address]/Documents/Guidelines /Acute%20Coronary%20Syndrome.pdf#search=troponin Result Comment: Func tional Fibrinogen (activity) levels can be affected by direct thrombin inhibitors such as heparins (>2.0 IU/ml) and dabigatran. Abnormal results should be interpreted with caution. Performed By: #### L ABHSTI1 #### [facility] (DEFAULT) [address] [place] [address] Glomerular filtration rate ( GFR) estimationOrdered By: Song Yanez on 10-27-2024 Estimated GFR (MDRD) Non-Af Amer 67 mL/min >60 [facility] Comment on above: Non- GFR Calc Glucose Ql (U)Ordered By: Obdulia Yanez on 10-27-2024 Urine Glucose (UA) Normal mg/dl Normal [facility] Glucose measurementOrdered B y: Song Yanez on 10-27-2024 Glucose [Mass/Vol] 98 mg/dL Normal 74-106 [facility] Comment on above: Order Comment: 'TROP ' Serial specimen #1, #2 or #3: 1 Performed By: #### L 501.080 #### [facility] Laboratory [address] [place] [address]. [place], [address] [facility] deOrdered By: Song Yanez on 10-27-2024 Bedside Glucose (Misc Panel) 93 mg/dL 74-106 [facility] Comment on above: MANAGEMENT OF PATIEN T CARE PER NURSING PROTOCOL HEPATIC FUNCTION PANELon Albumin [Mass/Vol] 3.9 g/dL 3.5 - 5.0 g/dL [facility] ALP [Catalytic activity/Vol] 87 U/L 32 - 126 U/L [facility] ALT [Catalytic activity/Vol] 11 U/L 9 - 48 U/L [facility] AST [Catalytic activity/Vol] 20 U/L 10 - 39 U/L [facility] Bilirubin [Mass/Vol] 0.4 mg/dL NINF - 1.5 mg/dL [facility] Bilirubin.direct [Mass/Vol] 0.1 mg/dL NINF - 0.3 mg/dL [facility] Interpretation and review of laboratory results Normal [facility] Protein [Mass/Vol] 6.7 g/dL 6.4 - 8.3 g/dL [facility] Albumin [Mass/Vol] 3.9 g/dL Normal 3.5-5.0 [facility] Comment on above: Performed By: #### C HM7 #### [facility] (DEFAULT) [address] [address] ALP [Catalytic activity/Vol] 87 U/L Normal 32-126 [facility] Comment on above: Performed By: #### C HM7 #### [facility] (DEFAULT) [address] [address] ALT [Catalytic activity/Vol] 11 U/L Normal 9-48 [facility] Comment on above: Performed By: #### C HM7 #### [facility] (DEFAULT) [address] [address] AST [Catalytic activity/Vol] 20 U/L Normal 10-39 [facility] Comment on above: Performed By: #### C HM7 #### [facility] (DEFAULT) [address] [place] [address] Bilirubin [Mass/Vol] 0.4 mg/dL Normal <1.5 [facility] Comment on above: Performed By: #### C HM7 #### [facility] (DEFAULT) [address] [place] [address] Bilirubin.indirect [Mass/Vol] 0.1 mg/dL Normal <0.3 [facility] Comment on above: Performed By: #### C HM7 #### [facility] (DEFAULT) [address] [address] Protein [Mass/Vol] 6.7 g/dL Normal 6.4-8.3 [facility] Comment on above: Performed By: #### C HM7 #### [facility] (DEFAULT) [address] [address] HIGH SENSITIVITY TROPONIN I - SINGLE ORDERon 10-27-2024 Interpretation and review of laboratory results Normal [facility] Troponin I.cardiac High sensitivity method [Mass/Vol] 28 ng/L NINF - 34 ng/L [facility] hs-Troponin I 28 ng/L Normal <34 [facility] Comment on above: Order Comment: Acute Coronary Syndrome (ACS): Initial Evaluation and Management: https://[email or web address]/Documents/Guidelines /Acute%20Coronary%20Syndrome.pdf#search=troponin Performed By: #### L ABHSTI1 #### [facility] (DEFAULT) [address] [address] Hematocrit Auto (Bld) [Volum e fraction]Ordered By: Song Yanez on 10-27-2024 Hematocrit (Bld) [Volume fraction] 34.5 % Low 37-47 [facility] Hemoglobin measurementOrdere d By: Song Yanez on 10-27-2024 Hemoglobin (Bld) [Mass/Vol] 11.3 g/dL Low 12.0-15. 0 [facility] Immature granulocytes/100 WB C Auto (Bld)Ordered By: Song Yanez on 10-27-2024 Immature granulocytes/100 WBC (Bld) 0.300 % 0.0-0.9 [facility] Comment on above: IG% - Immature Granu locytes (promyelocytes, myelocytes and metamyelocytes) > 1% indicates that a LEFT SHIFT is Present. International normalized rat io (INR) calculationOrdered By: Song Yanez on 10-27-2024 INR Coag (Bld) [Relative time] 1.0 {INR} [facility] Ketones Test strip Ql (U)Ord ered By: Song Yanez on 10-27-2024 Ketones Ql (U) Negative Negative [facility] L501.4020on 10-27-2024 TROPONIN-I HS 14 pg/mL Normal 3.0-54.0 [facility] Comment on above: Order Comment: 'TROP ' Serial specimen #1, #2 or #3: 1 Result Comment: [place] gay Note: New Test Units and Gender Specific Reference Ranges. For more information see Policy Stat Procedure [facility] High Sensitivity Troponin (TNIH) and attachments. Performed By: #### L 505.5000 #### [facility] Laboratory [address] [place], [address] Lymphocytes Auto (Unsp spec) [#/Vol]Ordered By: Song Yanez on 10-27-2024 Lymphocytes (Bld) [#/Vol] 2.01 10*3/uL 0.83-4.5 1 [facility] Lymphocytes/100 WBC Auto (Un sp spec)Ordered By: Song Yanez on 10-27-2024 Lymphocytes/100 WBC (Bld) 28.7 % 19-41 [facility] MCV (mean corpuscular volume ) determinationOrdered By: Song Yanez on 10-27-2024 MCV (RBC) [Entitic vol] 83.3 fL 81-99 [facility] MINT GREEN TOP TUBEon 2024 [facility] Mean corpuscular hemoglobin (MCH) determinationOrdered By: Song Yanez on 10-27-2024 MCH (RBC) [Entitic mass] 27.3 pg 27.0-32.0 [facility] Mean corpuscular hemoglobin concentration (MCHC) determinationOrdered By: Song Yanez on 10-27-2024 MCHC (RBC) [Mass/Vol] 32.8 g/dL 32-36 [facility] Mean platelet volume determi nationOrdered By: Song Yanez on 10-27-2024 Platelet mean volume (Bld) [Entitic vol] 9.1 fL 6.2-12.0 [facility] Methadone, urineOrdered By: Song Yanez on 10-27-2024 Urine Methadone Screen Negative < 300 ng/mL [facility] Microscopic analysis of urin e for red blood cells (RBC)Ordered By: Song Yanez on 10-27-2024 Urine RBC 0-5 SEEN /hpf 0-5 [facility] Monocyte percentageOrdered B y: Song Yanez on 10-27-2024 Monocytes/100 WBC (Bld) 8.4 % 0-10 [facility] Mucus LM Ql (Urine sed)Order ed By: Song Yanez on 10-27-2024 Mucus Ql (Urine sed) 0 SEEN /hpf [facility] Neutrophil percentageOrdered By: Song Yanez on 10-27-2024 Neutrophils/100 WBC (Bld) 61.2 % 47-70 [facility] Nitrite Test strip Ql (U)Ord ered By: Song Yanez on 10-27-2024 Nitrite Ql (U) Negative Negative [facility] No Panel Informationon 10-27 [facility] Interpretation and review of laboratory results Normal [facility] No Panel InformationOrdered By: Song Yanez on 10-27-2024 Urine Drug Screen Comment [facility] Comment on above: CONFIRMATORY TESTING FOR [...] RBC/100 WBC (Bld) [Ratio] 0 % 0-5 [facility] PTINR-STROKEon 10-27-2024 INR Coag (Bld) [Relative time] 1.1 {INR} 0.9 - 1.1 [facility] PT Coag (PPP) [Time] 14.1 s [facility] INR Coag (PPP) [Relative time] 1.1 {INR} Normal 0.9-1.1 [facility] Comment on above: Performed By: #### L [id number] #### [facility] (DEFAULT) [address] [place] [address] PT Coag (PPP) [Time] 14.1 s Normal 11.9-14.2 [facility] Comment on above: Performed By: #### L AB980 #### [facility] (DEFAULT) [address] [place] [address] PTTon 10-27-2024 aPTT Coag (PPP) [Time] 33.7 s [facility] aPTT Coag (Bld) [Time] 33.7 s Normal 24.0-34.3 [facility] Comment on above: Performed By: #### L [id number] #### [facility] (DEFAULT) [address] [place] [address] Partial Thromboplast Timeon 10-27-2024 aPTT Coag (Bld) [Time] 32.9 s Normal 24.1-36.2 [facility] Comment on above: Performed By: #### L 505.5000 #### [facility] Laboratory [address] [place], [address] Platelet countOrdered By: Obdulia Yanez on 10-27-2024 Platelets (Bld) [#/Vol] 279 10*3/uL 150-450 [facility] Portable XR Chest Viewson IMPRESSION: Nonspecific [...] disease. IMPRESSION IMPRESSION: Nonspecific right infrahilar opacity. [facility] Radiology Study observation (narrative) [facility] Potassium measurementOrdered By: Song Yanez on 10-27-2024 Potassium [Moles/Vol] 3.6 mmol/L Normal 3.5-5.1 [facility] Comment on above: Order Comment: 'TROP ' Serial specimen #1, #2 or #3: 1 Performed By: #### L 501.080 #### [facility] Laboratory [address] [place], [place], [address] Protein Test strip Ql (U)Ord ered By: Song Yanez on 10-27-2024 Protein Ql (U) Negative Negative [facility] Prothrombin Time w/INRon INR Coag (PPP) [Relative time] 1.0 {INR} Normal [facility] Comment on above: Performed By: #### L 505.5000 #### [facility] Laboratory [address] [place], [address] Prothrombin timeOrdered By: Song Yanez on 10-27-2024 PT Coag (PPP) [Time] 13.9 s Normal 11.7-14.9 [facility] Comment on above: Performed By: #### L 505.5000 #### [facility] Laboratory [address] [place], [address] Quantitative urine opiates m easurementOrdered By: Song Yanez on 10-27-2024 Opiates Ql (U) Negative < 300 ng/mL [facility] RBC Auto (Bld) [#/Vol]Ordere d By: Song Yanez on 10-27-2024 RBC (Bld) [#/Vol] 4.14 10*6/uL Low 4.2-5.4 [facility] STROKE Brain/Head without Co nton 10-27-2024 STROKE Brain/Head without Cont [facility] Imaging Services [address] [place] [address] STROKE Brain/Head without Cont MR#: [id number] Acct: [id number] Name: POONAM VELOZ Rep #: [id number] : 1940 F 84 From: Jeet Schwab PCP: Dr. Clyde Downing MD Status: [facility] ER Study: STROKE Brain/Head without Cont Date of Exam: 0 10/27/24 Exam# [id number] Ordering Dr: Song Yanez DO ADDENDUM by Dr. Jeet Fischer MD on 10/27/24 at 1630 [id number] STUDY: CT BRAIN WITHOUT CONTRAST REASON FOR [...] 16:30 EST Reading Location ID and State: [address] [place] [address] Tel , Service support , 10/27/24 1658 Date cc: Dr. Clyde Downing MD; Dr. Song Yanez DO * Signed We are attempting to reach an attending provider to discuss findings. An addendum with communication details will be sent when the communication is complete. [id number] STUDY: CT BRAIN WITHOUT CONTRAST REASON FOR [...] Clyde Downing MD; Dr. Song Yanez DO [place] Supervisor: Signed Normal [facility] STROKE CTA Head AND Neck W/C onon 10-27-2024 STROKE CTA Head AND Neck W/Con [facility] Imaging Services [address] [place] [id number] STROKE CTA Head AND Neck W/Con MR#: [id number] Acct: [id number] Name: POONAM VELOZ Rep #: [id number] : 1940 F 84 From: Jeet Schwab PCP: Dr. Clyde Downing MD Status: [facility] Study: STROKE CTA Head AND Neck W/Con Date of Exam: 0 10/27/24 Exam# [id number] Ordering Dr: Song Yanez DO ADDENDUM by Dr. Jeet Fischer MD on 10/27/24 at 1653 [id number] STUDY: CTA HEAD AND NECK WITH CONTRAST [...] There is no demonstrated aneurysm of the [place] of [place]. There is no demonstrated abnormality [...] MD; Dr. Song Yanez DO * Signed [id number] STUDY: CTA HEAD AND NECK WITH CONTRAST [...] of IV (more content not included)... Normal [facility] Serum anion gap measurementO rdered By: Song Yanez on 10-27-2024 Anion gap [Moles/Vol] 7 mmol/L 5-15 [facility] Serum ethanol measurementOrd ered By: Song Yanez on 10-27-2024 Ethyl Alcohol Level < 3.0 mg/dL [facility] Comment on above: The serum:whole bloo d ethanol ratio is approximately 1.14and varies slightly with hematocrit. Medical Alcohol reference interval and critical value innon-tolerant individuals; 50 - 100 Impairment 100 Intoxication 100 - 250 Severe Poisoning 250 - 400 Deep/possible fatal coma Serum or plasma calcium willy urement (mass/volume)Ordered By: Song Yanez on 10-27-2024 Calcium [Mass/Vol] 9.2 mg/dL 8.5-10.1 [facility] Serum or plasma creatinine m easurement (mass/volume)Ordered By: Song Yanez on 10-27-2024 Creatinine [Mass/Vol] 0.86 mg/dL Normal 0.55-1.02 [facility] Comment on above: The validity of the calculated GFR & GFRAA in patients over 70 years has not been determined. Clinical correlation is essential. Order Comment: 'TROP ' Serial specimen #1, #2 or #3: 1 Result Comment: The validity of the calculated GFR GFRAA in patients over 70 years has not been determined. Clinical correlation is essential. Performed By: #### L 501.080 #### [facility] Laboratory [address] [place], [place], [id number] Serum or plasma urea nitroge n measurement (mass/volume)Ordered By: Song Yanez on 10-27-2024 Urea nitrogen [Mass/Vol] 25 mg/dL High 7-18 [facility] Comment on above: Order Comment: 'TROP ' Serial specimen #1, #2 or #3: 1 Performed By: #### L 501.080 #### [facility] Laboratory [address] [place], [place], [address] Sodium levelOrdered By: Winnie Yanez on 10-27-2024 Sodium [Moles/Vol] 137 mmol/L Normal 136-145 [facility] Comment on above: Order Comment: 'TROP ' Serial specimen #1, #2 or #3: 1 Performed By: #### L 501.080 #### [facility] Laboratory [address] [facility] [place], [address] Troponin IOrdered By: Song Yanez on 10-27-2024 Troponin I High Sensitivity 14 pg/mL 3.0-54.0 [facility] Comment on above: Please Note: New Abena t Units and Gender Specific Reference Ranges. For more information see Policy Stat Procedure [facility] High Sensitivity Troponin (TNIH) and attachments. URINALYSIS REFLEX TO CULTURE PERFORMABLEon 10-27-2024 Appearance (U) Clear Clear [facility] Bacteria LM Ql (Urine sed) ABSENT ABSENT [facility] Color (U) Yellow Yellow [facility] Epithelial cells.squamous LM Ql (Urine sed) 0-2/hpf 0-2/hpf, 3-5/hpf = 1+ [facility] Glucose Test strip (U) [Mass/Vol] Negative Negative [facility] Interpretation and review of laboratory results Abnormal [facility] Ketones (U) [Mass/Vol] Negative Negative [facility] Leukocyte esterase Test strip Ql (U) Negative Negative [facility] Nitrite Ql (U) Negative Negative [facility] pH (U) 5.5 [pH] 5.0 - 7.0 [facility] Protein (U) [Mass/Vol] Negative Negative [facility] RBC (U) [#/Vol] Moderate Abnormal Negative [facility] RBC LM.HPF (Urine sed) [#/Area] /[HPF] Abnormal [facility] Specific gravity (U) [Rel density] High 1.001 - 1.035 [facility] Urobilinogen (U) [Mass/Vol] 0.2 E.U./dL 0.2 E.U/dL, 1.0 E.U/dL [facility] WBC LM.HPF (Urine sed) [#/Area] 0 - 5 [facility] Appearance (U) Clear Normal Clear [facility] Comment on above: Order Comment: Fibr [...] Performed By: #### F IB #### [facility] (DEFAULT) [address] [place] [address] Bacteria ABSENT Normal ABSENT [facility] Comment on above: Order Comment: Fibr [...] Performed By: #### F IB #### [facility] (DEFAULT) [address] [place] [address] Blood Urine Moderate Abnormal Negative [facility] Comment on above: Order Comment: Fibr [...] Performed By: #### F IB #### [facility] (DEFAULT) [address] [place] [address] Color (U) Yellow Normal Yellow [facility] Comment on above: Order Comment: Fibr [...] Performed By: #### F IB #### [facility] (DEFAULT) [address] [address] Glucose Ql (U) Negative Normal Negative [facility] Comment on above: Order Comment: Fibr [...] 114:1326. Performed By: #### F IB #### [facility] (DEFAULT) [address] [address] Ketones Ql (U) Negative Normal Negative [facility] Comment on above: Order Comment: Fibr [...] Performed By: #### F IB #### [facility] (DEFAULT) [address] [place] [address] Leukocyte esterase Test strip Ql (U) Negative Normal Negative [facility] Comment on above: Order Comment: Fibr [...] Performed By: #### F IB #### [facility] (DEFAULT) [address] [place] [address] Nitrites Urine Negative Normal Negative [facility] Comment on above: Order Comment: Fibr [...] Performed By: #### F IB #### [facility] (DEFAULT) [address] [address] pH (U) 5.5 [pH] Normal 5.0-7.0 [facility] Comment on above: Order Comment: Fibr [...] Performed By: #### F IB #### [facility] (DEFAULT) [address] [address] Protein Urine Negative Normal Negative [facility] Comment on above: Order Comment: Fibr [...] 114:1326. Performed By: #### F IB #### [facility] (DEFAULT) [address] [address] RBC LM.HPF (Urine sed) [#/Area] /[HPF] Abnormal 0-2 [facility] Comment on above: Order Comment: Fibr [...] 114:1326. Performed By: #### F IB #### [facility] (DEFAULT) [address] [address] Specific [place] Urine > High 1.001 -1.03 5 [facility] Comment on above: Order Comment: Fibr [...] 114:1326. Performed By: #### F IB #### [facility] (DEFAULT) [address] [place] [id number] Squamous/Epithelial Cells 0-2/hpf Normal 0- 2/hpf, 3-5/hpf = 1+ [facility] Comment on above: Order Comment: Fibr [...] 114:1326. Performed By: #### F IB #### [facility] (DEFAULT) [address] [address] Urobilinogen Urine 0.2 E.U./dL Normal 0.2 E.U/dL, 1.0 E.U/dL [facility] Comment on above: Order Comment: Fibr [...] Performed By: #### F IB #### [facility] (DEFAULT) [address] [address] WBC Urine 0 - 5 Normal 0 - 5 [facility] Comment on above: Order Comment: Fibr [...] Performed By: #### F IB #### [facility] (DEFAULT) [address] [address] URINE DRUG SCREEN 10-27 Amphetamine+Methamphetamine Screen (U) [Mass/Vol] Not detected Cutoff: 500 ng/mL [facility] Barbiturates Ql (U) Not detected Cutoff: 200 ng/mL [facility] Benzodiazepines Ql (U) Not detected Cutof f: 200 ng/mL [facility] Buprenorphine Ql (U) Not detected Cutoff: 5 ng/mL [facility] Cannabinoids Screen Ql (U) Not detected C utoff: 50 ng/mL [facility] Cocaine Ql (U) Not detected Cutoff: 150 ng/mL [facility] fentaNYL Ql (U) Not detected Cutoff: 1 ng/mL [facility] Interpretation and review of laboratory results Normal [facility] Methadone Ql (U) Not detected Cutoff: 300 ng/mL [facility] Opiates Ql (U) Not detected Cutoff: 300 ng/mL [facility] oxyCODONE Ql (U) Not detected Cutoff: 100 ng/mL [facility] For medical purposes only. Positive results are unconfirmed unless otherwise noted. [facility] Amphetamine/Methamphetamine Not detected Normal Cutoff: 500 ng/mL [facility] Comment on above: Order Comment: For edical purposes only. Positive results are unconfirmed unless otherwise noted. Performed By: #### L [id number] #### [facility] (DEFAULT) [address] [address] Barbiturates Not detected Normal Cutoff: 200 ng/mL [facility] Comment on above: Order Comment: For m edical purposes only. Positive results are unconfirmed unless otherwise noted. Performed By: #### L [id number] #### [facility] (DEFAULT) [address] [address] Benzodiazepines Not detected Normal Cutoff: 200 ng/mL [facility] Comment on above: Order Comment: For m edical purposes only. Positive results are unconfirmed unless otherwise noted. Performed By: #### L [id number] #### [facility] (DEFAULT) [address] [address] Buprenorphine Not detected Normal Cutoff: 5 ng/mL [facility] Comment on above: Order Comment: For m edical purposes only. Positive results are unconfirmed unless otherwise noted. Performed By: #### L [id number] #### [facility] (DEFAULT) [address] [address] Cannabinoids Screen Ql (U) Not detected Normal C utoff: 50 ng/mL [facility] Comment on above: Order Comment: For m edical purposes only. Positive results are unconfirmed unless otherwise noted. Performed By: #### L [id number] #### [facility] (DEFAULT) [address] [address] Cocaine Not detected Normal Cutoff: 150 ng/mL [facility] Comment on above: Order Comment: For edical purposes only. Positive results are unconfirmed unless otherwise noted. Performed By: #### L [id number] #### [facility] (DEFAULT) [address] [address] Fentanyl Not detected Normal Cutoff: 1 ng/mL [facility] Comment on above: Order Comment: For edical purposes only. Positive results are unconfirmed unless otherwise noted. Performed By: #### L [id number] #### [facility] (DEFAULT) [address] [address] Methadone Not detected Normal Cutoff: 300 ng/mL [facility] Comment on above: Order Comment: For edical purposes only. Positive results are unconfirmed unless otherwise noted. Performed By: #### L [id number] #### [facility] (DEFAULT) [address] [address] Opiates Not detected Normal Cutoff: 300 ng/mL [facility] Comment on above: Order Comment: For edical purposes only. Positive results are unconfirmed unless otherwise noted. Performed By: #### L [id number] #### [facility] (DEFAULT) [address] [address] Oxycodone Not detected Normal Cutoff: 100 ng/mL [facility] Comment on above: Order Comment: For edical purposes only. Positive results are unconfirmed unless otherwise noted. Performed By: #### L [id number] #### [facility] (DEFAULT) [address] [address] Urinalysis, Completeon 10-27 RBC 0-5 SEEN Normal 0-5 [facility] Comment on above: Order Comment: KAITY TER SPECIMEN Performed By: #### L 501.080 #### [facility] [address] [place], [address] BACTERIA 0 SEEN Normal None Seen [facility] Comment on above: Order Comment: KAITY TER SPECIMEN Performed By: #### L 501.080 #### [facility] [address] [place], [address] EPI,SQUAMOUS 0 SEEN Normal 5-10 [facility] Comment on above: Order Comment: KAITY TER SPECIMEN Performed By: #### L 501.080 #### [facility] [address] [place], [address] Mucus Ql (Urine sed) 0 SEEN Normal [facility] Comment on above: Order Comment: KAITY TER SPECIMEN Performed By: #### L 501.080 #### [facility] [address] [place], [address] WBC 0 SEEN Normal 0-5 [facility] Comment on above: Order Comment: KAITY TER SPECIMEN Performed By: #### L 501.080 #### [facility] [address] [place], [address] Urine Drug Screen (VISTA)on 10-27-2024 AMPHETAMINES Negative Normal <1000 ng/mL [facility] Comment on above: Performed By: #### L 505.5000 #### [facility] [address] [place], [address] BARBITIURATES Negative Normal < 200 ng/mL [facility] Comment on above: Performed By: #### L 505.5000 #### [facility] [address] [place], [address] BENZODIAZIPINE Negative Normal < 200 ng/mL [facility] Comment on above: Performed By: #### L 505.5000 #### [facility] [address] [place], [address] COCAINE Negative Normal < 300 ng/mL [facility] Comment on above: Performed By: #### L 505.5000 #### [facility] [address] [place], [address] ECSTACY Negative Normal < 500 ng/mL [facility] Comment on above: Performed By: #### L 505.5000 #### [facility] [address] [place], [address] METHADONE Negative Normal < 300 ng/mL [facility] Comment on above: Performed By: #### L 505.5000 #### [facility] [address] [place], [address] OPIATES Negative Normal < 300 ng/mL [facility] Comment on above: Performed By: #### L 505.5000 #### [facility] [address] [place], [address] PCP Negative Normal < 25 ng/mL [facility] Comment on above: Performed By: #### L 505.5000 #### [facility] [address] [place], [place], [facility] THC Negative Normal < 50 ng/mL [facility] Comment on above: Performed By: #### L 505.5000 #### [facility] [address] [place], [place], [facility] VISTA UDS PH 6 Normal [facility] Comment on above: Performed By: #### L 505.5000 #### [facility] [address] [place], [place], [facility] Urine amphetamine measuremen tOrdered By: Song Yanez on 10-27-2024 Amphetamines Ql (U) Negative <1000 ng/mL [facility] Urine barbiturates measureme ntOrdered By: Song Yanez on 10-27-2024 Urine Barbiturates Screen Negative < 200 ng/mL [facility] Urine benzodiazepine levelOr dered By: Song Yanez on 10-27-2024 Benzodiazepines Ql (U) Negative < 200 ng/mL [facility] Urine blood detectionOrdered By: Song Yanez on 10-27-2024 Urine Occult Blood 10 /ul High Negative [facility] Urine clarityOrdered By: Neville Yanez on 10-27-2024 Clarity (U) Clear Clear [facility] Urine cocaine levelOrdered B y: Song Yanez on 10-27-2024 Cocaine Ql (U) Negative < 300 ng/mL [facility] Urine color determinationOrd ered By: Song Yanez on 10-27-2024 Color (U) Yellow Yellow [facility] Urine [id number] abinol (THC) measurementOrdered By: Song Yanez on 10-27-2024 Cannabinoids Screen Ql (U) Negative < 50 ng/m L [facility] Urine leukocyte esterase det ection by dipstickOrdered By: Song Yanez on 10-27-2024 Leukocyte esterase Test strip Ql (U) Negative Negative [facility] Urine methylenedioxymethamph etamine (MDMA) measurementOrdered By: Song Yanez on 10-27-2024 MDMA (Ecstasy) Screen Negative < 500 ng/mL [facility] Urine pHOrdered By: Song ness on 10-27-2024 pH (U) 6.0 [pH] 5.0 - 8.0 [facility] Urine phencyclidine (PCP) de tectionOrdered By: Song Yanez on 10-27-2024 Phencyclidine Ql (U) Negative < 25 ng/mL [facility] Urine sediment bacteria coun t by microscopy (number/high power field)Ordered By: Song Yanez on 10-27-2024 Bacteria LM.HPF (Urine sed) [#/Area] 0 /[HPF] None Seen [facility] Urine specific gravity measu rementOrdered By: Song Yanez on 10-27-2024 Specific gravity (U) [Rel density] 1.010 1.002-1.03 0 [facility] Urobilinogen Ql (U)Ordered B y: Song Yanez on 10-27-2024 Urine Urobilinogen Normal mg/dl Normal [facility] White blood cell (WBC) count Ordered By: Song Yanez on 10-27-2024 WBC (Bld) [#/Vol] 7.0 10*3/uL 4.4-11.0 [facility] White blood cell countOrdere d By: Song Yanez on 10-27-2024 Urine WBC 0 SEEN /hpf 0-5 [facility] XR CHEST 1 VIEW PORTABLEon 0 [...] disease. IMPRESSION: Nonspecific right infrahilar opacity. Normal [facility] aPTT Coag (PPP) [Time]Ordere d By: Song Yanez on 10-27-2024 aPTT Coag (Bld) [Time] 32.9 s 24.1-36.2 [facility] Carotid Duplex Ultrasoundon 09-24-2024 Carotid Duplex Ultrasound [facility] [address] [place] [address] Carotid Duplex Ultrasound 09/24/24 0958 MR#: [id number] Acct: [id number] Name: POONAM VELOZ Rep #: [id number] : 1940 84 From: Ricardo Orr MD [...] the left vertebral artery. Procedure Carotid Duplex 12478. This is a Carotid Duplex examination using B-mode, color flow and specral Doppler. Exam performed in department. VL/Carotid Duplex Ultrasound Interpretation Summary Severe (>70%) stenosis right extracranial internal carotid. Mild (<50%) stenosis left extracranial internal carotid. Patent and antegrade vertebrals bilaterally. Ordering Physician: Thania Wisdom Referring Physician: Clyde Downing Performed By: Mary Grace Metzger RVT 09/24/24 9516 Date Ricardo Orr MD CC: SEEMA Hooker; Dr. Clyde Downing MD Date Dictated: 09/24/24 0958 Date Transcribed: 09/24/24 [address] [place] Supervisor: Signed Normal [facility] Albumin to globulin ratioOrd ered By: Clyde Downing on 09-14-2024 Albumin/Globulin [Mass ratio] 0.9 {ratio} 0.9-2.4 [facility] Bilirubin, totalOrdered By: Clyde Downing on 09-14-2024 Bilirubin [Mass/Vol] 0.30 mg/dL 0.20-1.00 [facility] Comment on above: For patients on eltr ombopag therapy, use of Dimension [place] TBIL is not recommended. Blood urea nitrogen (BUN)/cr eatinine ratioOrdered By: Clyde Downing on 09-14-2024 Urea nitrogen/Creatinine [Mass ratio] 23.3 mg/mg High 10-20 [facility] Carbon dioxide measurementOr dered By: Clyde Downing on 09-14-2024 CO2 [Moles/Vol] 27.0 mmol/L 21.0-32.0 [facility] Chloride measurementOrdered By: Clyde Downing on 09-14-2024 Chloride [Moles/Vol] 107 mmol/L 98-107 [facility] Comprehensive Metabolic Prof ilon 09-14-2024 Albumin [Mass/Vol] 3.4 g/dL Normal 3.2-5.0 [facility] Comment on above: Performed By: #### L 500.4050, L501.8100, L500.4100 #### [facility] [address] [place], [address] Albumin/Globulin [Mass ratio] 0.9 {ratio} Normal 0.9-2.4 [facility] Comment on above: Performed By: #### L 500.4050, L501.8100, L500.4100 #### [facility] [address] [place], [address] ALK P 97 U/L Normal 45-117 [facility] Comment on above: Performed By: #### L 500.4050, L501.8100, L500.4100 #### [facility] [address] [place], [address] ALT [Catalytic activity/Vol] 15 U/L Normal 13-56 [facility] Comment on above: Performed By: #### L 500.4050, L501.8100, L500.4100 #### [facility] [address] [place], [address] AST [Catalytic activity/Vol] 14 U/L Low 15-37 [facility] Comment on above: Performed By: #### L 500.4050, L501.8100, L500.4100 #### [facility] [address] [place], [address] Bilirubin [Mass/Vol] 0.30 mg/dL Normal 0.20-1.00 [facility] Comment on above: Result Comment: For patients on eltrombopag therapy, use of Dimension [place] TBIL is not recommended. Performed By: #### L 500.4050, L501.8100, L500.4100 #### [facility] [address] [place], [address] BUN/CRE 23.3 RATIO High 10-20 [facility] Comment on above: Performed By: #### L 500.4050, L501.8100, L500.4100 #### [facility] [address] [place], [address] CA,Total 9.5 mg/dL Normal 8.5-10.1 [facility] Comment on above: Performed By: #### L 500.4050, L501.8100, L500.4100 #### [facility] [address] [place], [address] Chloride [Moles/Vol] 107 mmol/L Normal 98-107 [facility] Comment on above: Performed By: #### L 500.4050, L501.8100, L500.4100 #### [facility] [address] [place], [address] CO2 [Moles/Vol] 27.0 mmol/L Normal 21.0-32.0 [facility] Comment on above: Performed By: #### L 500.4050, L501.8100, L500.4100 #### [facility] [address] [place], [address] Creatinine [Mass/Vol] 0.90 mg/dL Normal 0.55-1.02 [facility] Comment on above: Result Comment: The validity of the calculated GFR GFRAA in patients over 70 years has not been determined. Clinical correlation is essential. Performed By: #### L 500.4050, L501.8100, L500.4100 #### [facility] [address] [place], [address] EST GFR - AA 77 mL/min Normal >60 [facility] Comment on above: Result Comment: Afri can [place] Citizen GFR Calc Performed By: #### L 500.4050, L501.8100, L500.4100 #### [facility] [address] [place], [address] GAP 7 Normal 5-15 [facility] Comment on above: Performed By: #### L 500.4050, L501.8100, L500.4100 #### [facility] [address] [place], [address] GFR/1.73 sq M.predicted among non-blacks MDRD (S/P/Bld) [Vol rate/Area] 64 mL/min/{1.73_m2} Normal >60 [facility] Comment on above: Result Comment: Non- GFR Calc Performed By: #### L 500.4050, L501.8100, L500.4100 #### [facility] [address] [place], [address] Globulin (S) [Mass/Vol] 3.6 g/dL Normal 2.2-4.2 [facility] Comment on above: Performed By: #### L 500.4050, L501.8100, L500.4100 #### [facility] [address] [place], [address] Glucose [Mass/Vol] 104 mg/dL Normal 74-106 [facility] Comment on above: Result Comment: Fast ing Glucose result from 100 to 125 mg/dL suggests IMPAIRED HOMEOSTASIS per A.D.A. criteria. Performed By: #### L 500.4050, L501.8100, L500.4100 #### [facility] [address] [place], [address] Potassium [Moles/Vol] 3.5 mmol/L Normal 3.5-5.1 [facility] Comment on above: Performed By: #### L 500.4050, L501.8100, L500.4100 #### [facility] [address] [place], [address] Sodium [Moles/Vol] 140 mmol/L Normal 136-145 [facility] Comment on above: Performed By: #### L 500.4050, L501.8100, L500.4100 #### [facility] [address] [place], [address] T PROT 7.0 g/dL Normal 6.4-8.2 [facility] Comment on above: Performed By: #### L 500.4050, L501.8100, L500.4100 #### [facility] [address] [place], [address] Urea nitrogen [Mass/Vol] 21 mg/dL High 7-18 [facility] Comment on above: Performed By: #### L 500.4050, L501.8100, L500.4100 #### [facility] [address] [place], [address] Estimated glomerular filtrat ion rate (GFR) AmericanOrdered By: Clyde Downing on 09-14-2024 Estimated GFR (MDRD) Amer 77 mL/min >60 [facility] Comment on above: GFR Calc Glomerular filtration rate ( GFR) estimationOrdered By: Clyde Downing on 09-14-2024 Estimated GFR (MDRD) Non-Af Amer 64 mL/min >60 [facility] Comment on above: Non- GFR Calc Glucose measurementOrdered B y: Clyde Downing on 09-14-2024 Glucose [Mass/Vol] 104 mg/dL 74-106 [facility] Comment on above: Fasting Glucose resu lt from 100 to 125 mg/dL suggests IMPAIRED HOMEOSTASIS per A.D.A. criteria. High density lipoprotein (HD L) measurementOrdered By: Clyde Downing on 09-14-2024 Cholesterol in HDL [Mass/Vol] 63 mg/dL >40 [facility] Comment on above: The drugs N-Acetylcy steine and Metamizole may falsely depress this assay. Reference Range HDL <40 mg/dL Low HDL Cholesterol HDL >or= 60 mg/dL High HDL Cholesterol Laboratory - Chemistry and C hemistry - challengeOrdered By: Clyde Downing on 09-14-2024 AST [Catalytic activity/Vol] 14 U/L Low 15-37 [facility] Lipid Profileon 09-14-2024 Cholesterol [Mass/Vol] 162 mg/dL Normal 200 [facility] Comment on above: Result Comment: <200 mg/dL Desirable 200-240 mg/dL Borderline >240 mg/dL High Risk Performed By: #### L 501.080 #### [facility] [address] [place], [place], [id number] ([address]) Cholesterol in HDL [Mass/Vol] 63 mg/dL Normal [facility] Comment on above: Result Comment: The drugs N-Acetylcysteine and Metamizole may falsely depress this assay. Reference Range HDL <40 mg/dL Low HDL Cholesterol HDL >or= 60 mg/dL High HDL Cholesterol Performed By: #### L 501.080 #### [facility] [address] [place], [address] Cholesterol in LDL [Mass/Vol] 82 mg/dL Normal 0-130 [facility] Comment on above: Performed By: #### L 501.080 #### [facility] [address] [place], [place], [address] Cholesterol in VLDL [Mass/Vol] 17 mg/dL Normal 5-40 [facility] Comment on above: Performed By: #### L 501.080 #### [facility] [address] [place], [address] Triglyceride [Mass/Vol] 86 mg/dL Normal [facility] Comment on above: Result Comment: The drugs N-Acetylcysteine and Metamizole may falsely depress this assay. Serum Triglycerides Reference Interval Normal <150 mg/dL Borderline high 150 - 199 mg/dL High 200 - 499 mg/dL Very High > or = 500 mg/dL Performed By: #### L 501.080 #### [facility] [address] [place], [place], [id number] Low density lipoprotein (LDL ) cholesterol measurementOrdered By: Clyde Downing on 09-14-2024 Cholesterol in LDL [Mass/Vol] 82 mg/dL 0-130 [facility] Potassium measurementOrdered By: Clyde Downing on 09-14-2024 Potassium [Moles/Vol] 3.5 mmol/L 3.5-5.1 [facility] Serum anion gap measurementO rdered By: Clyde Downing on 09-14-2024 Anion gap [Moles/Vol] 7 mmol/L -15 [facility] Serum globulin measurementOr dered By: Clyde Downing on 09-14-2024 Globulin (S) [Mass/Vol] 3.6 g/dL 2.2-4.2 [facility] Serum or plasma alanine barriga otransferase (ALT) measurementOrdered By: Clyde Downing on 09-14-2024 ALT [Catalytic activity/Vol] 15 U/L [facility] Serum or plasma albumin willy urement (mass/volume)Ordered By: Clyde Downing on 09-14-2024 Albumin [Mass/Vol] 3.4 g/dL 3.2-5.0 [facility] Serum or plasma alkaline vasile sphatase measurementOrdered By: Clyde Downing on 09-14-2024 ALP [Catalytic activity/Vol] 97 U/L 45-117 [facility] Serum or plasma calcium willy urement (mass/volume)Ordered By: Clyde Downing on 09-14-2024 Calcium [Mass/Vol] 9.5 mg/dL 8.5-10.1 [facility] Serum or plasma cholesterol measurement (mass/volume)Ordered By: Clyde Downing on 09-14-2024 Cholesterol [Mass/Vol] 162 mg/dL <200 [facility] Comment on above: <200 mg/dL Desirable 200-240 mg/dL Borderline >240 mg/dL High Risk Serum or plasma creatinine m easurement (mass/volume)Ordered By: Clyde Downing on 09-14-2024 Creatinine [Mass/Vol] 0.90 mg/dL 0.55-1.02 [facility] Comment on above: The validity of the calculated GFR & GFRAA in patients over 70 years has not been determined. Clinical correlation is essential. Serum or plasma urea nitroge n measurement (mass/volume)Ordered By: Cldye Downing on 09-14-2024 Urea nitrogen [Mass/Vol] 21 mg/dL High 7-18 [facility] Sodium levelOrdered By: Clyde Downing on 09-14-2024 Sodium [Moles/Vol] 140 mmol/L 136-145 [facility] Total proteinOrdered By: Cecy Downing on 09-14-2024 Protein [Mass/Vol] 7.0 g/dL 6.4-8.2 [facility] Triglycerides measurementOrd ered By: Clyde Downing on 09-14-2024 Triglyceride [Mass/Vol] 86 mg/dL <199 [facility] Comment on above: The drugs N-Acetylcy steine and Metamizole may falsely depress this assay.Serum Triglycerides Reference Interval Normal <150 mg/dL Borderline high 150 - 199 mg/dL High 200 - 499 mg/dL Very High > or = 500 mg/dL Valproate levelOrdered By: Martha Downing on 09-14-2024 Valproic Acid (Depakene) Level < 3 ug/mL Low 50-100 [facility] Valproic Acid (Depakene) Lev cande 09-14-2024 VALPROIC ACID < 3 Low 50-100 [facility] Comment on above: Performed By: #### L 501.080 #### [facility] [address] [place], [address] Very low density lipoprotein (VLDL) cholesterol measurementOrdered By: Clyde Downing on 09-14-2024 VLDL Cholesterol 17 mg/dL 5-40 [facility] D/C Summary- SPon 09-04-2024 D/C Summary- SP [facility] Speech Pathology [facility] [address] [place] [address] / REHABILITATION SERVICES DISCHARGE SUMMARY MR#: [id number] Acct: [id number] Name: POONAM VELOZ Rep #: [id number] : 1940 84 From: Raphael Calvin M.A., [facility] Referring Dr.: Dr. Clyde Downing MD Status: [facility] Insurance: [facility] [id number] SELF PAY INSURANCE Discharge Summary Discharged: Discharge: Poonam Veloz is discharged from speech therapy at [facility] as of 07/30/24. She was evaluated [...] taken to ER and then transferred to [place]. After her hospital stay, she was going to go through home health for therapy. Please see daily notes and plan of cares for complete details. Thank you for allowing me to participate in the care of this patient. 09/04/24 2718 CC: Dr. Clyde Downing MD JLM Signed Normal [facility] KEPPRA (LEVETIRACETAM)on KEPPRA 21.8 ug/mL Normal 10.0-40.0 [facility] Comment on above: Result Comment: Perf ormed at: BN - [facility] [address] [id number] Butting Saw Operator: Carlos Cordoba MD, Phone: [phone] Performed By: #### L 505.5000 #### [facility] Laboratory [address] [place], [address] Basic Metabolic Profile (BMP )on 08-03-2024 BUN/CRE 28.5 RATIO High 10-20 [facility] Comment on above: Performed By: #### L 505.5000 #### [facility] [address] [place], [address] CA,Total 10.0 mg/dL Normal 8.5-10.1 [facility] Comment on above: Performed By: #### L 505.5000 #### [facility] [address] [place], [address] Chloride [Moles/Vol] 105 mmol/L Normal 98-107 [facility] Comment on above: Performed By: #### L 505.5000 #### [facility] [address] [place], [address] CO2 [Moles/Vol] 24.0 mmol/L Normal 21.0-32.0 [facility] Comment on above: Performed By: #### L 505.5000 #### [facility] [address] [place], [address] Creatinine [Mass/Vol] 0.91 mg/dL Normal 0.55-1.02 [facility] Comment on above: Result Comment: The validity of the calculated GFR GFRAA in patients over 70 years has not been determined. Clinical correlation is essential. Performed By: #### L 505.5000 #### [facility] [address] [place], [address] EST GFR - AA 76 mL/min Normal >60 [facility] Comment on above: Result Comment: Afri can [place] Citizen GFR Calc Performed By: #### L 505.5000 #### [facility] [address] [place], [address] GAP 8 Normal 5-15 [facility] Comment on above: Performed By: #### L 505.5000 #### [facility] [address] [place], [address] GFR/1.73 sq M.predicted among non-blacks MDRD (S/P/Bld) [Vol rate/Area] 63 mL/min/{1.73_m2} Normal >60 [facility] Comment on above: Result Comment: Non- GFR Calc Performed By: #### L 505.5000 #### [facility] [address] [place], [address] Glucose [Mass/Vol] 122 mg/dL High 74-106 [facility] Comment on above: Result Comment: Fast ing Glucose result from 100 to 125 mg/dL suggests IMPAIRED HOMEOSTASIS per A.D.A. criteria. Performed By: #### L 505.5000 #### [facility] [address] [place], [address] Potassium [Moles/Vol] 3.8 mmol/L Normal 3.5-5.1 [facility] Comment on above: Performed By: #### L 505.5000 #### [facility] [address] [place], [address] Sodium [Moles/Vol] 136 mmol/L Normal 136-145 [facility] Comment on above: Performed By: #### L 505.5000 #### [facility] [address] [place], [address] Urea nitrogen [Mass/Vol] 26 mg/dL High 7-18 [facility] Comment on above: Performed By: #### L 505.5000 #### [facility] [address] [place], [address] CBC W/Diff, Automatedon 11-0 1-2023 Absolute Lymph 1.34 X10 3/uL Normal 0.83-4.51 [facility] Comment on above: Performed By: #### L 505.5000 #### [facility] [address] [place], [address] Absolute Neut 6.6 X10 3/uL Normal 2.0-7.7 [facility] Comment on above: Performed By: #### L 505.5000 #### [facility] [address] [place], [address] Basophils/100 WBC (Bld) 0.6 % Normal 0-1 [facility] Comment on above: Performed By: #### L 505.5000 #### [facility] [address] [place], [address] Eosinophils/100 WBC (Bld) 1.0 % Normal 0-5 [facility] Comment on above: Performed By: #### L 505.5000 #### [facility] [address] [place], [address] Erythrocyte distribution width (RBC) [Ratio] 14.8 % High 11.6-14.6 [facility] Comment on above: Performed By: #### L 505.5000 #### [facility] [address] [place], [address] Hematocrit (Bld) [Volume fraction] 37.9 % Normal 37-47 [facility] Comment on above: Performed By: #### L 505.5000 #### [facility] [address] [place], [address] Hemoglobin (Bld) [Mass/Vol] 12.3 g/dL Normal 12.0-15. 0 [facility] Comment on above: Performed By: #### L 505.5000 #### [facility] [address] [place], [address] IG% 0.500 Normal 0.0-0.9 [facility] Comment on above: Result Comment: IG% - Immature Granulocytes (promyelocytes, myelocytes and metamyelocytes) > 1% indicates that a LEFT SHIFT is Present. Performed By: #### L 505.5000 #### [facility] [address] [place], [address] Lymphocytes/100 WBC (Bld) 15.4 % Low 19-41 [facility] Comment on above: Performed By: #### L 505.5000 #### [facility] [address] [place], [address] MCH (RBC) [Entitic mass] 27.1 pg Normal 27.0-32.0 [facility] Comment on above: Performed By: #### L 505.5000 #### [facility] [address] [place], [address] MCHC (RBC) [Mass/Vol] 32.5 g/dL Normal 32-36 [facility] Comment on above: Performed By: #### L 505.5000 #### [facility] [address] [place], [address] MCV (RBC) [Entitic vol] 83.5 fL Normal 81-99 [facility] Comment on above: Performed By: #### L 505.5000 #### [facility] [address] [place], [address] Monocytes/100 WBC (Bld) 6.8 % Normal 0-10 [facility] Comment on above: Performed By: #### L 505.5000 #### [facility] [address] [place], [address] Neutrophils/100 WBC (Bld) 75.7 % High 47-70 [facility] Comment on above: Performed By: #### L 505.5000 #### [facility] [address] [place], [address] Nucleated RBC (Bld) [#/Vol] 0 10*3/uL Normal 0-5 [facility] Comment on above: Performed By: #### L 505.5000 #### [facility] [address] [place], [address] Platelet mean volume (Bld) [Entitic vol] 9.1 fL Normal 6.2-12.0 [facility] Comment on above: Performed By: #### L 505.5000 #### [facility] [address] [place], [address] Platelets (Bld) [#/Vol] 429 10*3/uL Normal 150-450 [facility] Comment on above: Performed By: #### L 505.5000 #### [facility] [address] [place], [address] RBC (Bld) [#/Vol] 4.54 10*6/uL Normal 4.2-5.4 [facility] Comment on above: Performed By: #### L 505.5000 #### [facility] [address] [place], [address] RDW SD 44.9 fl High 35.1-43.9 [facility] Comment on above: Performed By: #### L 505.5000 #### [facility] [address] [place], [address] WBC (Bld) [#/Vol] 8.7 10*3/uL Normal 4.4-11.0 [facility] Comment on above: Performed By: #### L 505.5000 #### [facility] [address] [place], [address] CBC,PLATELETSon 07-30-2024 Erythrocyte distribution width (RBC) [Ratio] 14.6 % 10.8 - 14.9 % [facility] Hematocrit (Bld) [Volume fraction] 34.4 % Low 34.9 - 44.3 % [facility] Hemoglobin (Bld) [Mass/Vol] 11.0 g/dL Low 11.4 - 15.2 g/dL [facility] Interpretation and review of laboratory results Abnormal [facility] MCH (RBC) [Entitic mass] 26.8 pg 25. 9 - 33.9 pg [facility] MCHC (RBC) [Mass/Vol] 32.0 g/dL 31.4 - 35.9 g/dL [facility] MCV (RBC) [Entitic vol] 83.9 fL 79.6 - 97.7 fL [facility] Platelet mean volume (Bld) [Entitic vol] 8.9 fL 8.5 - 12.2 fL [facility] Platelets (Bld) [#/Vol] 332 10*3/uL 150 - 393 K/uL [facility] RBC (Bld) [#/Vol] 4.10 10*6/uL [facility] WBC (Bld) [#/Vol] 7.34 10*3/uL 3.99 - 11.19 K/uL [facility] Hematocrit (Bld) [Volume fraction] 34.4 % Low 34.9-44.3 [facility] Comment on above: Performed By: #### C HM7 #### [facility] (DEFAULT) [address] [address] Hemoglobin (Bld) [Mass/Vol] 11.0 g/dL Low 11.4-15. 2 [facility] Comment on above: Performed By: #### C HM7 #### [facility] (DEFAULT) [address] [place] [address] MCV (RBC) [Entitic vol] 83.9 fL Normal 79.6-97.[address] [facility] Comment on above: Performed By: #### C HM7 #### [facility] (DEFAULT) [address] [address] Mean Cell Hgb 26.8 pg Normal 25.9-33.9 [facility] Comment on above: Performed By: #### C HM7 #### [facility] (DEFAULT) [address] [place] [address] Mean Cell Hgb Conc 32.0 g/dL Normal 31.4-35.9 [facility] Comment on above: Performed By: #### C HM7 #### [facility] (DEFAULT) [address] [place] [address] Platelet mean volume (Bld) [Entitic vol] 8.9 fL Normal 8.5-12.2 [facility] Comment on above: Performed By: #### C HM7 #### [facility] (DEFAULT) [address] [place] [address] Platelets (Bld) [#/Vol] 332 10*3/uL Normal 150-393 [facility] Comment on above: Performed By: #### C HM7 #### [facility] (DEFAULT) [address] [place] [address] RBC (Bld) [#/Vol] 4.10 10*6/uL Normal 3.91-5.04 [facility] Comment on above: Performed By: #### C HM7 #### [facility] (DEFAULT) [address] [place] [address] RBC Distribution 14.6 % Normal 10.8-14.9 [facility] Comment on above: Performed By: #### C HM7 #### [facility] (DEFAULT) [address] [place] [address] WBC (Bld) [#/Vol] 7.34 10*3/uL Normal 3.99-11.19 [facility] Comment on above: Performed By: #### C HM7 #### [facility] (DEFAULT) [address] [place] [address] CHEM 7 (LYTES,BUN,CREA,GLUC) on 07-30-2024 Anion gap [Moles/Vol] 11 mmol/L 7 - 17 mmol/L [facility] Chloride [Moles/Vol] 107 mmol/L 98 - 10 8 mmol/L [facility] CO2 [Moles/Vol] 23 mmol/L 21 - 31 mmol/L [facility] Creatinine [Mass/Vol] 0.64 mg/dL 0.50 - 1.20 mg/dL [facility] eGFR, CKD-EPI, Female 89 - PINF [facility] Comment on above: Reported eGFR is bas ed on the CKD-EPI 2020 equation using creatinine, age, and sex. Glucose [Mass/Vol] 98 mg/dL 70 - 99 mg/dL [facility] Osmolality Calc [Osmolality] 288 [facility] Potassium [Moles/Vol] 4.2 mmol/L 3.5 - 5.0 mmol/L [facility] Sodium [Moles/Vol] 137 mmol/L 135 - 145 mmol/L [facility] Urea nitrogen [Mass/Vol] 13 mg/dL 7 - 25 mg/dL [facility] Urea nitrogen/Creatinine [Mass ratio] 20 mg/mg [facility] Anion gap [Moles/Vol] 11 mmol/L Normal 7-17 [facility] Comment on above: Performed By: #### C HM7 #### [facility] (DEFAULT) [address] [place] [address] Chloride [Moles/Vol] 107 mmol/L Normal 98-108 [facility] Comment on above: Performed By: #### C HM7 #### [facility] (DEFAULT) [address] [place] [address] CO2 [Moles/Vol] 23 mmol/L Normal 21-31 [facility] Comment on above: Performed By: #### C HM7 #### [facility] (DEFAULT) [address] [address] Creatinine [Mass/Vol] 0.64 mg/dL Normal 0.50-1.20 [facility] Comment on above: Performed By: #### C HM7 #### [facility] (DEFAULT) [address] [place] [address] GFR/1.73 sq M.predicted among non-blacks MDRD (S/P/Bld) [Vol rate/Area] 89 mL/min/{1.73_m2} Normal >=60 [facility] Comment on above: Result Comment: Repo rted eGFR is based on the CKD-EPI 2020 equation using creatinine, age, and sex. Performed By: #### C HM7 #### [facility] (DEFAULT) [address] [place] [address] Glucose [Mass/Vol] 98 mg/dL Normal 70-99 [facility] Comment on above: Performed By: #### C HM7 #### [facility] (DEFAULT) [address] [place] [address] Osmolality [Osmolality] 288 mosm/kg Normal 278-305 [facility] Comment on above: Performed By: #### C HM7 #### [facility] (DEFAULT) [address] [place] [address] Potassium [Moles/Vol] 4.2 mmol/L Normal 3.5-5.0 [facility] Comment on above: Performed By: #### C HM7 #### [facility] (DEFAULT) [address] [place] [address] Sodium [Moles/Vol] 137 mmol/L Normal 135-145 [facility] Comment on above: Performed By: #### C HM7 #### [facility] (DEFAULT) [address] [place] [address] Urea nitrogen [Mass/Vol] 13 mg/dL Normal 7-25 [facility] Comment on above: Performed By: #### C HM7 #### [facility] (DEFAULT) [address] [address] Urea nitrogen/Creatinine [Mass ratio] 20 mg/mg Normal [facility] Comment on above: Performed By: #### C HM7 #### [facility] (DEFAULT) [address] [place] [address] EXTRA MICROon 07-30-2024 [facility] CBC,PLATELETSon 07-29-2024 Erythrocyte distribution width (RBC) [Ratio] 14.7 % 10.8 - 14.9 % [facility] Hematocrit (Bld) [Volume fraction] 34.8 % Low 34.9 - 44.3 % [facility] Hemoglobin (Bld) [Mass/Vol] 11.0 g/dL Low 11.4 - 15.2 g/dL [facility] Interpretation and review of laboratory results Abnormal [facility] MCH (RBC) [Entitic mass] 26.8 pg 25. 9 - 33.9 pg [facility] MCHC (RBC) [Mass/Vol] 31.6 g/dL 31.4 - 35.9 g/dL [facility] MCV (RBC) [Entitic vol] 84.9 fL 79.6 - 97.7 fL [facility] Platelet mean volume (Bld) [Entitic vol] 8.8 fL 8.5 - 12.2 fL [facility] Platelets (Bld) [#/Vol] 318 10*3/uL 150 - 393 K/uL [facility] RBC (Bld) [#/Vol] 4.10 10*6/uL [facility] WBC (Bld) [#/Vol] 8.38 10*3/uL 3.99 - 11.19 K/uL [facility] Hematocrit (Bld) [Volume fraction] 34.8 % Low 34.9-44.3 [facility] Comment on above: Performed By: #### H [facility] #### [facility] (DEFAULT) [address] [place] [address] Hemoglobin (Bld) [Mass/Vol] 11.0 g/dL Low 11.4-15. 2 [facility] Comment on above: Performed By: #### H [facility] #### [facility] (DEFAULT) [address] [place] [address] MCV (RBC) [Entitic vol] 84.9 fL Normal 79.6-97.[address] [facility] Comment on above: Performed By: #### H EMOGC #### [facility] (DEFAULT) [address] [address] Mean Cell Hgb 26.8 pg Normal 25.9-33.9 [facility] Comment on above: Performed By: #### H EMOGC #### [facility] (DEFAULT) [address] [address] Mean Cell Hgb Conc 31.6 g/dL Normal 31.4-35.9 [facility] Comment on above: Performed By: #### H EMO #### [facility] (DEFAULT) [address] [address] Platelet mean volume (Bld) [Entitic vol] 8.8 fL Normal 8.5-12.2 [facility] Comment on above: Performed By: #### H EMO #### [facility] (DEFAULT) [address] [address] Platelets (Bld) [#/Vol] 318 10*3/uL Normal 150-393 [facility] Comment on above: Performed By: #### H EMO #### [facility] (DEFAULT) [address] [address] RBC (Bld) [#/Vol] 4.10 10*6/uL Normal 3.91-5.04 [facility] Comment on above: Performed By: #### H EMOGC #### [facility] (DEFAULT) [address] [address] RBC Distribution 14.7 % Normal 10.8-14.9 [facility] Comment on above: Performed By: #### H EMOGC #### [facility] (DEFAULT) [address] [address] WBC (Bld) [#/Vol] 8.38 10*3/uL Normal 3.99-11.19 [facility] Comment on above: Performed By: #### H [facility] #### [facility] (DEFAULT) [address] [place] [address] CHEM 7 (LYTES,BUN,CREA,GLUC) on 07-29-2024 Anion gap [Moles/Vol] 12 mmol/L 7 - 17 mmol/L [facility] Chloride [Moles/Vol] 105 mmol/L 98 - 10 8 mmol/L [facility] CO2 [Moles/Vol] 23 mmol/L 21 - 31 mmol/L [facility] Creatinine [Mass/Vol] 0.64 mg/dL 0.50 - 1.20 mg/dL [facility] eGFR, CKD-EPI, Female 89 - PINF [facility] Comment on above: Reported eGFR is bas ed on the CKD-EPI 2020 equation using creatinine, age, and sex. Glucose [Mass/Vol] 106 mg/dL High 70 - 99 mg/dL [facility] Interpretation and review of laboratory results Abnormal [facility] Osmolality Calc [Osmolality] 286 [facility] Potassium [Moles/Vol] 3.4 mmol/L Low 3.5 - 5.0 mmol/L [facility] Sodium [Moles/Vol] 137 mmol/L 135 - 145 mmol/L [facility] Urea nitrogen [Mass/Vol] 12 mg/dL 7 - 25 mg/dL [facility] Urea nitrogen/Creatinine [Mass ratio] 19 mg/mg [facility] Anion gap [Moles/Vol] 12 mmol/L Normal 7-17 [facility] Comment on above: Performed By: #### L ABHSTI1 #### [facility] (DEFAULT) [address] [place] [address] Chloride [Moles/Vol] 105 mmol/L Normal 98-108 [facility] Comment on above: Performed By: #### L ABHSTI1 #### [facility] (DEFAULT) [address] [place] [address] CO2 [Moles/Vol] 23 mmol/L Normal 21-31 [facility] Comment on above: Performed By: #### L DELFINTI1 #### [facility] (DEFAULT) [address] [address] Creatinine [Mass/Vol] 0.64 mg/dL Normal 0.50-1.20 [facility] Comment on above: Performed By: #### L DELFINTI1 #### [facility] (DEFAULT) [address] [address] GFR/1.73 sq M.predicted among non-blacks MDRD (S/P/Bld) [Vol rate/Area] 89 mL/min/{1.73_m2} Normal >=60 [facility] Comment on above: Result Comment: Repo rted eGFR is based on the CKD-EPI 2020 equation using creatinine, age, and sex. Performed By: #### L URBANO1 #### [facility] (DEFAULT) [address] [address] Glucose [Mass/Vol] 106 mg/dL High 70-99 [facility] Comment on above: Performed By: #### L DELFINTI1 #### [facility] (DEFAULT) [address] [address] Osmolality [Osmolality] 286 mosm/kg Normal 278-305 [facility] Comment on above: Performed By: #### L DELFINTI1 #### [facility] (DEFAULT) [address] [address] Potassium [Moles/Vol] 3.4 mmol/L Low 3.5-5.0 [facility] Comment on above: Performed By: #### L DELFINTI1 #### [facility] (DEFAULT) [address] [address] Sodium [Moles/Vol] 137 mmol/L Normal 135-145 [facility] Comment on above: Performed By: #### L DELFINTI1 #### [facility] (DEFAULT) [address] [place] [address] Urea nitrogen [Mass/Vol] 12 mg/dL Normal 04-26 [facility] Comment on above: Performed By: #### L ABHSTI1 #### [facility] (DEFAULT) [address] [place] [address] Urea nitrogen/Creatinine [Mass ratio] 19 mg/mg Normal [facility] Comment on above: Performed By: #### L ABHSTI1 #### [facility] (DEFAULT) [address] [place] [address] GENERAL PROCEDUREon 07-29-20 Matty Kaminski MD - [...] using her right hand prompting presentation to [facility] ER as a code stroke. There, symptoms [...] recorded, clinical correlation recommended. Matty Kaminski MD Dental Laboratory Manager, Department of Neurology, Epilepsy Section [facility] Radiology Study observation (narrative) [facility] SEDIMENTATION RATE, AUTOMATE Don 07-29-2024 ESR (Bld) [Velocity] [facility] Comment on above: Not Measured [facility] ESR Westergren Normal [facility] Comment on above: Result Comment: Not Measured Performed By: #### E SR #### [facility] (DEFAULT) [address] [place] [address] URINALYSIS REFLEX TO CULTURE PERFORMABLEOrdered By: Gerardo Rodriguez on 07-29-2024 Appearance (U) Cloudy Abnormal Clear [facility] Bacteria LM Ql (Urine sed) PRESENT Abnormal ABSENT [facility] Color (U) Yellow Yellow [facility] Epithelial cells.squamous LM Ql (Urine sed) 0-2/hpf 0-2/hpf, 3-5/hpf = 1+ [facility] Glucose Test strip (U) [Mass/Vol] Negative Negative [facility] Interpretation and review of laboratory results [facility] Ketones (U) [Mass/Vol] Negative Negative [facility] Leukocyte esterase Test strip Ql (U) Small Abnormal Negative [facility] Nitrite Ql (U) Negative Negative [facility] pH (U) 6.0 [pH] 5.0 - 7.0 [facility] Protein (U) [Mass/Vol] Negative Negative [facility] RBC (U) [#/Vol] Small Abnormal Negative [facility] RBC LM.HPF (Urine sed) [#/Area] 3-5 Abnormal [facility] Specific gravity (U) [Rel density] 1.016 1.001 - 1.035 [facility] Urobilinogen (U) [Mass/Vol] 1.0 E.U./dL 0.2 E.U/dL, 1.0 E.U/dL [facility] WBC LM.HPF (Urine sed) [#/Area] 0 - 5 [facility] URINALYSIS REFLEX TO CULTURE PERFORMABLEon 07-29-2024 Appearance (U) Cloudy Abnormal Clear [facility] Comment on above: Order Comment: For i ndwelling catheters, specimen collection is acceptable on catheter day 1 and 2 only. ? Performed By: #### U [id number] #### [facility] (DEFAULT) [address] [place] [address] [id number] Bacteria PRESENT Abnormal ABSENT [facility] Comment on above: Order Comment: For i ndwelling catheters, specimen collection is acceptable on catheter day 1 and 2 only. ? Performed By: #### U [id number] #### [facility] (DEFAULT) [address] [place] [address] 48231 Blood Urine Small Abnormal Negative [facility] Comment on above: Order Comment: For i ndwelling catheters, specimen collection is acceptable on catheter day 1 and 2 only. ? Performed By: #### U [id number] #### [facility] (DEFAULT) [address] [place] [address] [id number] Color (U) Yellow Normal Yellow [facility] Comment on above: Order Comment: For i ndwelling catheters, specimen collection is acceptable on catheter day 1 and 2 only. ? Performed By: #### U [id number] #### [facility] (DEFAULT) [address] [place] [address] 64733 Glucose Ql (U) Negative Normal Negative [facility] Comment on above: Order Comment: For i ndwelling catheters, specimen collection is acceptable on catheter day 1 and 2 only. ? Performed By: #### U [id number] #### [facility] (DEFAULT) [address] [place] [address] 12417 Ketones Ql (U) Negative Normal Negative [facility] Comment on above: Order Comment: For i ndwelling catheters, specimen collection is acceptable on catheter day 1 and 2 only. ? Performed By: #### U [id number] #### [facility] (DEFAULT) [address] [place] [address] 33876 Leukocyte esterase Test strip Ql (U) Small Abnormal Negative [facility] Comment on above: Order Comment: For i ndwelling catheters, specimen collection is acceptable on catheter day 1 and 2 only. ? Performed By: #### U [id number] #### [facility] (DEFAULT) [address] [place] [address] 26862 Nitrites Urine Negative Normal Negative [facility] Comment on above: Order Comment: For i ndwelling catheters, specimen collection is acceptable on catheter day 1 and 2 only. ? Performed By: #### U [id number] #### [facility] (DEFAULT) [address] [place] [address] 93486 pH (U) 6.0 [pH] Normal 5.0-7.0 [facility] Comment on above: Order Comment: For i ndwelling catheters, specimen collection is acceptable on catheter day 1 and 2 only. ? Performed By: #### U [id number] #### [facility] (DEFAULT) [address] [place] [address] 40828 Protein Urine Negative Normal Negative [facility] Comment on above: Order Comment: For i ndwelling catheters, specimen collection is acceptable on catheter day 1 and 2 only. ? Performed By: #### U [id number] #### [facility] (DEFAULT) [address] [place] [address] 54163 RBC Urine 3-5 Abnormal 0-2 [facility] Comment on above: Order Comment: For i ndwelling catheters, specimen collection is acceptable on catheter day 1 and 2 only. ? Performed By: #### U [id number] #### [facility] (DEFAULT) [address] [place] [address] 52720 Specific [place] Urine 1.016 Normal 1.001 -1.03 5 [facility] Comment on above: Order Comment: For i ndwelling catheters, specimen collection is acceptable on catheter day 1 and 2 only. ? Performed By: #### U [id number] #### [facility] (DEFAULT) [address] [place] [address] 68265 Squamous/Epithelial Cells 0-2/hpf Normal 0- 2/hpf, 3-5/hpf = 1+ [facility] Comment on above: Order Comment: For i ndwelling catheters, specimen collection is acceptable on catheter day 1 and 2 only. ? Performed By: #### U [id number] #### [facility] (DEFAULT) [address] [place] [address] 40682 Urobilinogen Urine 1.0 E.U./dL Normal 0.2 E.U/dL, 1.0 E.U/dL [facility] Comment on above: Order Comment: For i ndwelling catheters, specimen collection is acceptable on catheter day 1 and 2 only. ? Performed By: #### U [id number] #### [facility] (DEFAULT) [address] [place] [address] 47521 WBC Urine 0 - 5 Normal 0 - 5 [facility] Comment on above: Order Comment: For i ndwelling catheters, specimen collection is acceptable on catheter day 1 and 2 only. ? Performed By: #### U [id number] #### [facility] (DEFAULT) [address] [place] [address] 22326 C REACTIVE PROTEINon 024 CRP High sensitivity method [Mass/Vol] 45.67 mg/L High NINF - 10.00 mg/L [facility] Interpretation and review of laboratory results Abnormal [facility] CRP [Mass/Vol] 45.67 mg/L High <10.00 [facility] Comment on above: Performed By: #### C HM7 #### [facility] (DEFAULT) [address] [place] [address] 04388 CALCIUMon 07-28-2024 Calcium [Mass/Vol] 9.2 mg/dL 8.6 - 10. 5 mg/dL [facility] Calcium [Mass/Vol] 9.2 mg/dL Normal 8.6-10.5 [facility] Comment on above: Performed By: #### C HM7 #### [facility] (DEFAULT) [address] [place] [address] 04664 CBC,PLATELETSon 07-28-2024 Erythrocyte distribution width (RBC) [Ratio] 14.8 % 10.8 - 14.9 % [facility] Hematocrit (Bld) [Volume fraction] 33.8 % Low 34.9 - 44.3 % [facility] Hemoglobin (Bld) [Mass/Vol] 11.1 g/dL Low 11.4 - 15.2 g/dL [facility] Interpretation and review of laboratory results Abnormal [facility] MCH (RBC) [Entitic mass] 27.0 pg 25. 9 - 33.9 pg [facility] MCHC (RBC) [Mass/Vol] 32.8 g/dL 31.4 - 35.9 g/dL [facility] MCV (RBC) [Entitic vol] 82.2 fL 79.6 - 97.7 fL [facility] Platelet mean volume (Bld) [Entitic vol] 9.4 fL 8.5 - 12.2 fL [facility] Platelets (Bld) [#/Vol] 318 10*3/uL 150 - 393 K/uL [facility] RBC (Bld) [#/Vol] 4.11 10*6/uL [facility] WBC (Bld) [#/Vol] 9.92 10*3/uL 3.99 - 11.19 K/uL [facility] Hematocrit (Bld) [Volume fraction] 33.8 % Low 34.9-44.3 [facility] Comment on above: Performed By: #### L [id number] #### [facility] (DEFAULT) [address] [place] [address] 06133 Hemoglobin (Bld) [Mass/Vol] 11.1 g/dL Low 11.4-15. 2 [facility] Comment on above: Performed By: #### L [id number] #### [facility] (DEFAULT) [address] [place] [address] 83591 MCV (RBC) [Entitic vol] 82.2 fL Normal 79.6-97.[address] [facility] Comment on above: Performed By: #### L [id number] #### [facility] (DEFAULT) [address] [place] [address] 23118 Mean Cell Hgb 27.0 pg Normal 25.9-33.9 [facility] Comment on above: Performed By: #### L [id number] #### [facility] (DEFAULT) [address] [place] [address] 11634 Mean Cell Hgb Conc 32.8 g/dL Normal 31.4-35.9 [facility] Comment on above: Performed By: #### L [id number] #### [facility] (DEFAULT) [address] [place] [address] 17423 Platelet mean volume (Bld) [Entitic vol] 9.4 fL Normal 8.5-12.2 [facility] Comment on above: Performed By: #### L [id number] #### [facility] (DEFAULT) [address] [place] [address] 73003 Platelets (Bld) [#/Vol] 318 10*3/uL Normal 150-393 [facility] Comment on above: Performed By: #### L [id number] #### [facility] (DEFAULT) [address] [place] [address] 02649 RBC (Bld) [#/Vol] 4.11 10*6/uL Normal 3.91-5.04 [facility] Comment on above: Performed By: #### L [id number] #### [facility] (DEFAULT) [address] [place] [address] RBC Distribution 14.8 % Normal 10.8-14.9 [facility] Comment on above: Performed By: #### L [id number] #### [facility] (DEFAULT) [address] [place] [address] WBC (Bld) [#/Vol] 9.92 10*3/uL Normal 3.99-11.19 [facility] Comment on above: Performed By: #### L [id number] #### [facility] (DEFAULT) [address] [place] [address] CHEM 7 (LYTES,BUN,CREA,GLUC) on 07-28-2024 Anion gap [Moles/Vol] 13 mmol/L 7 - 17 mmol/L [facility] Chloride [Moles/Vol] 104 mmol/L 98 - 10 8 mmol/L [facility] CO2 [Moles/Vol] 24 mmol/L 21 - 31 mmol/L [facility] Creatinine [Mass/Vol] 0.70 mg/dL 0.50 - 1.20 mg/dL [facility] eGFR, CKD-EPI, Female 87 - PINF [facility] Comment on above: Reported eGFR is bas ed on the CKD-EPI 2020 equation using creatinine, age, and sex. Glucose [Mass/Vol] 104 mg/dL High 70 - 99 mg/dL [facility] Interpretation and review of laboratory results Abnormal [facility] Osmolality Calc [Osmolality] 289 [facility] Potassium [Moles/Vol] 4.3 mmol/L 3.5 - 5.0 mmol/L [facility] Comment on above: Specimen slightly he molyzed. Potassium results may be falsey elevated by more than 0.5 mmol/L. Consider recollection. Sodium [Moles/Vol] 137 mmol/L 135 - 145 mmol/L [facility] Urea nitrogen [Mass/Vol] 15 mg/dL 7 - 25 mg/dL [facility] Urea nitrogen/Creatinine [Mass ratio] 21 mg/mg [facility] Anion gap [Moles/Vol] 13 mmol/L Normal 7-17 [facility] Comment on above: Performed By: #### C HM7 #### [facility] (DEFAULT) [address] [place] [address] 21537 Chloride [Moles/Vol] 104 mmol/L Normal 98-108 [facility] Comment on above: Performed By: #### C HM7 #### [facility] (DEFAULT) [address] [place] [address] 96673 CO2 [Moles/Vol] 24 mmol/L Normal 21-31 [facility] Comment on above: Performed By: #### C HM7 #### [facility] (DEFAULT) [address] [place] [address] 40490 Creatinine [Mass/Vol] 0.70 mg/dL Normal 0.50-1.20 [facility] Comment on above: Performed By: #### C HM7 #### [facility] (DEFAULT) [address] [place] [address] 28479 GFR/1.73 sq M.predicted among non-blacks MDRD (S/P/Bld) [Vol rate/Area] 87 mL/min/{1.73_m2} Normal >=60 [facility] Comment on above: Result Comment: Repo rted eGFR is based on the CKD-EPI 2020 equation using creatinine, age, and sex. Performed By: #### C HM7 #### [facility] (DEFAULT) [address] [place] [address] 61461 Glucose [Mass/Vol] 104 mg/dL High 70-99 [facility] Comment on above: Performed By: #### C HM7 #### [facility] (DEFAULT) [address] [place] [address] 46774 Osmolality [Osmolality] 289 mosm/kg Normal 278-305 [facility] Comment on above: Performed By: #### C HM7 #### [facility] (DEFAULT) [address] [place] [address] 24753 Potassium [Moles/Vol] 4.3 mmol/L Normal 3.5-5.0 [facility] Comment on above: Result Comment: Spec imen slightly hemolyzed. Potassium results may be falsey elevated by more than 0.5 mmol/L. Consider recollection. Performed By: #### C HM7 #### [facility] (DEFAULT) [address] [place] [address] Sodium [Moles/Vol] 137 mmol/L Normal 135-145 [facility] Comment on above: Performed By: #### C HM7 #### [facility] (DEFAULT) [address] [place] [address] Urea nitrogen [Mass/Vol] 15 mg/dL Normal 7-25 [facility] Comment on above: Performed By: #### C HM7 #### [facility] (DEFAULT) [address] [place] [address] 88217 Urea nitrogen/Creatinine [Mass ratio] 21 mg/mg Normal [facility] Comment on above: Performed By: #### C HM7 #### [facility] (DEFAULT) [address] [place] [address] 15770 Cardiac echo study Procedure Ordered By: Alva Gibbs on 07-28-2024 Ao ASC index 2.28 cm/m2 [facility] Work Phone: Ao peak aria 1.33 m/s [facility] Work Phone: Ao SOV index 1.80 cm/m2 [facility] Work Phone: Ao STJ index 2.07 cm/m2 [facility] Work Phone: Ao VTI 28.50 cm [facility] Work Phone: Ascending aorta 3.70 cm [facility] Work Phone: AV LVOT peak gradient 6 [facility] Work Phone: AV mean gradient 5 mmHg [facility] Work Phone: AV peak gradient 7 mmHG [facility] Work Phone: AV valve area 2.89 cm2 [facility] Work Phone: AV Velocity Ratio 0.91 [facility] Work Phone: CHEYENNE (continuity Vmax) 3.15 cm2 [facility] Work Phone: CHEYENNE (continuity VTI) 2.89 cm2 [facility] Work Phone: CHEYENNE index (continuity Vmax) 1.94 m/s [facility] Work Phone: CHEYENNE index (continuity VTI) 1.78 cm2/m2 [facility] Work Phone: Avg e' pk aria 0.07 m/s [facility] Work Phone: Avg E/e' ratio 11.26 [facility] Work Phone: Body surface area Derived from formula 1.62 m2 [facility] Work Phone: BP EF 68 % [facility] Work Phone: DI (Vmax) 0.91 [facility] Work Phone: DI (VTI) 0.84 m/2 [facility] Work Phone: E wave decelartion time 309.00 msec [facility] Work Phone: e' lateral pk aria 0.0774 m/s [facility] Work Phone: e' lateral pk aria 0.08 m/s [facility] Work Phone: e' septal pk aria 0.0704 m/[facility]: e' septal pk aria 0.07 m/s [facility] Work Phone: E/A ratio 0.82 [facility] Work Phone: E/e' lateral ratio 10.72 [facility] Work Phone: E/e' septal ratio 11.79 [facility] Work Phone: EF SP 2CH 62 [facility] Work Phone: EF SP 4CH 73 [facility] Work Phone: EST RAP 3 mmHg [facility] Work Phone: EST RVSP 32 mmHg [facility] Work Phone: FS 36 % [facility] Work Phone: IVC ostium 1.66 cm [facility] Work Phone: IVS 0.89 cm [facility] Work Phone: LA AREA 2CH 14.20 cm2 [facility] Work Phone: LA area 4CH 13.40 cm2 [facility] Work Phone: LA ESV BP (MOD) 31 mL [facility] Work Phone: LA ESV BP (MOD) index 19 mL/m2 [facility] Work Phone: LA ESV SP 2CH (MOD) 35 mL [facility] Work Phone: LA ESV SP 4CH (MOD) 27 mL [facility] Work Phone: LA size 2.90 cm [facility] Work Phone: LEFT ATRIAL DIAMETER INDEX 1.79 cm/m2 [facility] Work Phone: LV EDV BP 57 mL [facility] Work Phone: [phone] LV EDV SP 2CH 50 mL [facility] Work Phone: LV EDV SP 4CH 62 mL [facility] Work Phone: LV ESV BP 18 mL [facility] Work Phone: LV ESV SP 2CH 19 mL [facility] Work Phone: [phone] LV ESV SP 4CH 17 mL [facility] Work Phone: LV mass 60.86 g [facility] Work Phone: LV Mass Index 37.6 g/m2 [facility] Work Phone: LV RWT 0.57 [facility] Work Phone: LV stroke volume BP (ml) 39 mL [facility] Work Phone: LV stroke volume index BP 24.07 mL/m2 [facility] Work Phone: LVIDD 2.87 cm [facility] Work Phone: LVIDS 1.84 cm [facility] Work Phone: LVOT area 3.46 cm2 [facility] Work Phone: LVOT diameter 2.10 cm [facility] Work Phone: LVOT peak aria 1.21 m/s [facility] Work Phone: LVOT peak VTI 23.80 cm [facility] Work Phone: LVOT stroke volume 82 cm3 [facility] Work Phone: LVOT stroke volume index 50.86 ml/m2 [facility] Work Phone: MV pk A aria 1.01 m/s [facility] Work Phone: MV pk E aria 0.83 m/s [facility] Work Phone: [facility] AV VTI RATIO PRE STRESS 0.84 [facility] Work Phone: [facility]SU ECHO LV BIPLANE SYSTOLIC VOLUME INDEX 11.11 mL/m2 [facility] Work Phone: [facility] ECHO LV BP DIASTOLIC VOLUME INDEX 35.19 mL/m2 [facility] Work Phone: PV peak gradient 4 mmHg [facility] Work Phone: PV PK ARIA 1.03 m/s [facility] Work Phone: PW 0.82 cm [facility] Work Phone: RA area 4CH (MOD) 8.76 cm2 [facility] Work Phone: RA vol index 4CH (MOD) 9.26 mL/m2 [facility] Work Phone: Right atrium volume 4 chamber method of disks 15 mL [facility] Work Phone: RV Area diastolic 11.00 cm2 [facility] Work Phone: RV Area systolic 5.81 cm2 [facility] Work Phone: RV basal diam 2.75 cm [facility] Work Phone: RV Fractional area change 47.2 % [facility] Work Phone: RV long diam 6.52 cm [facility] Work Phone: RV mid diam 2.09 cm [facility] Work Phone: RV S' 9.98 cm/s [facility] Work Phone: RVOT peak gradient 2 mmHg [facility] Work Phone: RVOT peak aria 0.69 m/s [facility] Work Phone: Sinus 2.91 cm [facility] Work Phone: STJ 3.36 cm [facility] Work Phone: Stroke Volume 82 cm/mL [facility] Work Phone: Stroke volume index 51 [facility] Work Phone: TAPSE 1.90 cm [facility] Work Phone: TR pk grad 29 mmHg [facility] Work Phone: TR pk aria 2.70 m/s [facility] Work Phone: TV rest pulmonary artery pressure 32.16 mmHg [facility] Work Phone: [facility] Work Phone: Cardiac echo study Procedure on [...] study quality was fair. Imaging system used: teextee. Wall Scoring Score Index: 1.00 The left ventricular wall motion is normal. [facility] Radiology Study observation (narrative) [facility] ECHOCARDIOGRAMon 07-28-2024 Echocardiography ? Left Ventricle: [...] original result were not included. Facility [facility] Patient Information Patient Name Poonam Veloz Legal [...] Reading Role Read Date ARLINE Lee Echo Maryneal 07/28/2024 Wall Scoring Score Index: 1.00 The [...] area change (more content not included)... Normal [facility] HEMOGLOBIN A1Con 07-28-2024 Average glucose Estimated from glycated hemoglobin (Bld) [Mass/Vol] 128 mg/dL [facility] HbA1c (Bld) [Mass fraction] 6.1 % High 4.7 - 5.6 % [facility] Interpretation and review of laboratory results Abnormal [facility] Glucose [Mass/Vol] 128 mg/dL Normal [facility] Comment on above: Performed By: #### L [facility] #### [facility] (DEFAULT) [address] [place] [address], [place] [address] Hemoglobin A1C HPLC 6.1 % High 4.7-5.6 [facility] Comment on above: Performed By: #### L [id number] #### [facility] (DEFAULT) [address] [address] HEPATIC FUNCTION PANELon Albumin [Mass/Vol] 3.7 g/dL 3.5 - 5.0 g/dL [facility] ALP [Catalytic activity/Vol] 79 U/L 32 - 126 U/L [facility] ALT [Catalytic activity/Vol] 10 U/L 9 - 48 U/L [facility] AST [Catalytic activity/Vol] 25 U/L 10 - 39 U/L [facility] Comment on above: Specimen slightly he molyzed. AST results may be falsely elevated. Interpret within the clinical context. Bilirubin [Mass/Vol] 0.4 mg/dL [facility] - 1.5 mg/dL [facility] Bilirubin.direct [Mass/Vol] mg/dL [facility] - 0.3 mg/dL [facility] Comment on above: Specimen hemolyzed. Direct bilirubin results may be falsely decreased. Interpret within the clinical context. Protein [Mass/Vol] 7.1 g/dL 6.4 - 8.3 g/dL [facility] Albumin [Mass/Vol] 3.7 g/dL Normal 3.5-5.0 [facility] Comment on above: Performed By: #### C HM7 #### [facility] (DEFAULT) [address] [address] ALP [Catalytic activity/Vol] 79 U/L Normal 32-126 [facility] Comment on above: Performed By: #### C HM7 #### [facility] (DEFAULT) [address] [address] ALT [Catalytic activity/Vol] 10 U/L Normal 9-48 [facility] Comment on above: Performed By: #### C HM7 #### [facility] (DEFAULT) [address] [place] [address] 49659 AST [Catalytic activity/Vol] 25 U/L Normal 10-39 [facility] Comment on above: Result Comment: Spec imen slightly hemolyzed. AST results may be falsely elevated. Interpret within the clinical context. Performed By: #### C HM7 #### [facility] (DEFAULT) [address] [place] [address] 57660 Bilirubin [Mass/Vol] 0.4 mg/dL Normal <1.5 [facility] Comment on above: Performed By: #### C HM7 #### [facility] (DEFAULT) [address] [place] [address] 67102 Bilirubin Direct < Normal <0.3 [facility] Comment on above: Result Comment: Spec imen hemolyzed. Direct bilirubin results may be falsely decreased. Interpret within the clinical context. Performed By: #### C HM7 #### [facility] (DEFAULT) [address] [place] [address] 50490 Protein [Mass/Vol] 7.1 g/dL Normal 6.4-8.3 [facility] Comment on above: Performed By: #### C HM7 #### [facility] (DEFAULT) [address] [place] [address] 81709 HIGH SENSITIVITY TROPONIN I - SINGLE ORDEROrdered By: Patricia Potts on 07-28-2024 Interpretation and review of laboratory results Abnormal [facility] Troponin I.cardiac High sensitivity method [Mass/Vol] 34 ng/L High NINF - 34 ng/L [facility] HIGH SENSITIVITY TROPONIN I - SINGLE ORDERon 07-28-2024 hs-Troponin I 34 ng/L High <34 [facility] Comment on above: Order Comment: Acute Coronary Syndrome (ACS): Initial Evaluation and Management:[email or web address] Performed By: #### L [id number] #### [facility] (DEFAULT) [address] [place] [address] LIPID PANEL WITH REFLEX TO M BUFFY LDLon 07-28-2024 Cholesterol [Mass/Vol] 163 mg/dL NINF - 200 mg/dL [facility] Comment on above: [<200 mg/dL: Desirab le] [200-239 mg/dL: Borderline High] [>239 mg/dL: High] Cholesterol in HDL [Mass/Vol] 51 mg/dL 40 - PINF mg/dL [facility] Comment on above: [<40 mg/dL: Low (Hig h Risk)] [>59 mg/dL: High (Low Risk)] Cholesterol in LDL [Mass/Vol] 95 mg/dL 0 - 99 mg/dL [facility] Comment on above: [<100 mg/dL: Optimal ] [100-129 mg/dL: Near Optimal] [130-159 mg/dL: Borderline High] [160-189 mg/dL: High] [>189 mg/dL: Very High] Cholesterol non HDL [Mass/Vol] 112 mg/dL NINF - 130 mg/dL [facility] Cholesterol.total/Cholester ol in HDL [Mass ratio] 3.2 {ratio} NINF - 4.[address] [facility] Interpretation and review of laboratory results Normal [facility] Triglyceride [Mass/Vol] 87 mg/dL NINF - 150 mg/dL [facility] Comment on above: [<150 mg/dL: Desirab le] [150-199 mg/dL: Borderline] [200-499 mg/dL: High] [>500 mg/dL: Very High] [facility] Calculated LDL Cholesterol 95 mg/dL Normal 0-99 [facility] Comment on above: Result Comment: [<10 0 mg/dL: Optimal] [100-129 mg/dL: Near Optimal] [130-159 mg/dL: Borderline High] [160-189 mg/dL: High] [>189 mg/dL: Very High] Performed By: #### L ABHSTI1 #### [facility] (DEFAULT) [address] [place] [address] Cholesterol [Mass/Vol] 163 mg/dL Normal <200 [facility] Comment on above: Result Comment: [<20 0 mg/dL: Desirable] [200-239 mg/dL: Borderline High] [>239 mg/dL: High] Performed By: #### L ABHSTI1 #### [facility] (DEFAULT) [address] [address] Cholesterol in HDL [Mass/Vol] 51 mg/dL Normal >=40 [facility] Comment on above: Result Comment: [<40 mg/dL: Low (High Risk)] [>59 mg/dL: High (Low Risk)] Performed By: #### L ABHSTI1 #### [facility] (DEFAULT) [address] [address] Non HDL Cholesterol 112 mg/dL Normal <130 [facility] Comment on above: Performed By: #### L ABHSTI1 #### [facility] (DEFAULT) [address] [address] Total Cholesterol/HDL Ratio 3.2 Normal <4.5 [facility] Comment on above: Performed By: #### L ABHSTI1 #### [facility] (DEFAULT) [address] [address] Triglyceride [Mass/Vol] 87 mg/dL Normal <[address] [facility] Comment on above: Result Comment: [<15 0 mg/dL: Desirable] [150-199 mg/dL: Borderline] [200-499 mg/dL: High] [>500 mg/dL: Very High] Performed By: #### L ABHSTI1 #### [facility] (DEFAULT) [address] [address] MAGNESIUMon 07-28-2024 Magnesium [Mass/Vol] 2.1 mg/dL 1.6 - 2 .6 mg/dL [facility] Magnesium [Mass/Vol] 2.1 mg/dL Normal 1.6-2.6 [facility] Comment on above: Performed By: #### C HM7 #### [facility] (DEFAULT) [address] [address] No Panel Informationon 07-28 Interpretation and review of laboratory results Normal [facility] PHOSPHATE, INORGANICon 07-28 Phosphate [Mass/Vol] 3.2 mg/dL 2.2 - 4 .6 mg/dL [facility] Phosphorous 3.2 mg/dL Normal 2.2-4.6 [facility] Comment on above: Performed By: #### C 7 #### [facility] (DEFAULT) [address] [place] [address] 12 Lead EKGon 07-27-2024 12 Lead EKG [facility] Cardiovascular Services [address] [place] [address] 12 Lead EKG 07/27/24 1441 MR#: [id number] Acct: [id number] Name: POONAM VELOZ Rep #: [id number] : 1940 83 From: Desmond Storm MD [...] Abnormal ECG Confirmed by DESMOND STORM MD ([id number]), publications editor JOSE MANTILLA ([id number]) on 07/30/2024 1:42:27 PM Referred By: Confirmed By:DESMOND STORM MD 07/30/24 1342 Date Desmond Storm MD CC: Dr. Clyde Downing MD; Dr. Faraz Harrison DO Signed Normal [facility] Basic Metabolic Profile (BMP )on 07-27-2024 BUN/CRE 26.7 RATIO High 07-22 [facility] Comment on above: Order Comment: 'TROP ' Serial specimen #1, #2 or #3: 1 Performed By: #### L 501.080 #### [facility] Laboratory [address] [place], [address] CA,Total 9.3 mg/dL Normal 8.5-10.1 [facility] Comment on above: Order Comment: 'TROP ' Serial specimen #1, #2 or #3: 1 Performed By: #### L 501.080 #### [facility] Laboratory [address] [place], [address] Chloride [Moles/Vol] 104 mmol/L Normal 98-107 [facility] Comment on above: Order Comment: 'TROP ' Serial specimen #1, #2 or #3: 1 Performed By: #### L 501.080 #### [facility] Laboratory [address] [place], [address] CO2 [Moles/Vol] 24.0 mmol/L Normal 21.0-32.0 [facility] Comment on above: Order Comment: 'TROP ' Serial specimen #1, #2 or #3: 1 Performed By: #### L 501.080 #### [facility] [address] [place], [address] Creatinine [Mass/Vol] 0.75 mg/dL Normal 0.55-1.02 [facility] Comment on above: Order Comment: 'TROP ' Serial specimen #1, #2 or #3: 1 Result Comment: The validity of the calculated GFR GFRAA in patients over 70 years has not been determined. Clinical correlation is essential. Performed By: #### L 501.080 #### [facility] [address] [place], [address] ECRCL 47.26 ml/min Normal [facility] Comment on above: Order Comment: 'TROP ' Serial specimen #1, #2 or #3: 1 Performed By: #### L 501.080 #### [facility] [address] [place], [address] EST GFR - AA 95 mL/min Normal >60 [facility] Comment on above: Order Comment: 'TROP ' Serial specimen #1, #2 or #3: 1 Result Comment: Afri can [place] Citizen GFR Calc Performed By: #### L 501.080 #### [facility] [address] [place], [address] GAP 8 Normal 5-15 [facility] Comment on above: Order Comment: 'TROP ' Serial specimen #1, #2 or #3: 1 Performed By: #### L 501.080 #### [facility] [address] [place], [address] GFR/1.73 sq M.predicted among non-blacks MDRD (S/P/Bld) [Vol rate/Area] 79 mL/min/{1.73_m2} Normal >60 [facility] Comment on above: Order Comment: 'TROP ' Serial specimen #1, #2 or #3: 1 Result Comment: Non- GFR Calc Performed By: #### L 501.080 #### [facility] [address] [place], [address] Glucose [Mass/Vol] 112 mg/dL High 74-106 [facility] Comment on above: Order Comment: 'TROP ' Serial specimen #1, #2 or #3: 1 Result Comment: Fast ing Glucose result from 100 to 125 mg/dL suggests IMPAIRED HOMEOSTASIS per A.D.A. criteria. Performed By: #### L 501.080 #### [facility] [address] [place], [address] Potassium [Moles/Vol] 3.3 mmol/L Low 3.5-5.1 [facility] Comment on above: Order Comment: 'TROP ' Serial specimen #1, #2 or #3: 1 Performed By: #### L 501.080 #### [facility] [address] [place], [address] Sodium [Moles/Vol] 135 mmol/L Low 136-145 [facility] Comment on above: Order Comment: 'TROP ' Serial specimen #1, #2 or #3: 1 Performed By: #### L 501.080 #### [facility] [address] [place], [address] Urea nitrogen [Mass/Vol] 20 mg/dL High 7-18 [facility] Comment on above: Order Comment: 'TROP ' Serial specimen #1, #2 or #3: 1 Performed By: #### L 501.080 #### [facility] [address] [place], [address] Bedside Glucoseon 07-27-2024 FINGERSTICK GLU 111 mg/dL High 74-106 [facility] Comment on above: Result Comment: [place] OF PATIENT CARE PER NURSING PROTOCOL Performed By: #### L 501.080 #### [facility] [address] [place], [address] Brain/Head without Contrasto n 07-27-2024 Brain/Head without Contrast [facility] Imaging Services [address] [place] [address] Brain/Head without Contrast MR#: [id number] Acct: [id number] Name: POONAM VELOZ Rep #: [id number] : 1940 F 83 From: Nelson clement MD PCP: Dr. Clyde Downing MD Status: ADM INES Study: Brain/Head without Contrast Date of Exam: 07/04 02/23 Exam# [id number] Ordering Dr: Susy Beltran MD [id number] EXAMINATION : Head CT w/out contrast HISTORY [...] consistent with cerebral atrophy. There is normal cornelius-white differentiation, without CT evidence of acute ischemia [...] Susy Beltran MD; Dr. Clyde Downing MD [place] Supervisor: Signed Normal [facility] CBC W/Diff, Automatedon - Absolute Lymph 1.41 X10 3/uL Normal 0.83-4.51 [facility] Comment on above: Performed By: #### L 501.080 #### [facility] Laboratory [address] [facility] [place], [address] Absolute Neut 6.0 X10 3/uL Normal 2.0-7.7 [facility] Comment on above: Performed By: #### L 501.080 #### [facility] [address] [facility] [place], [address] Basophils/100 WBC (Bld) 0.4 % Normal 0-1 [facility] Comment on above: Performed By: #### L 501.080 #### [facility] [address] [facility] [place], [address] Eosinophils/100 WBC (Bld) 0.7 % Normal 0-5 [facility] Comment on above: Performed By: #### L 501.080 #### [facility] [address] [place], [address] Erythrocyte distribution width (RBC) [Ratio] 14.8 % High 11.6-14.6 [facility] Comment on above: Performed By: #### L 501.080 #### [facility] [address] [place], [address] Hematocrit (Bld) [Volume fraction] 31.6 % Low 37-47 [facility] Comment on above: Performed By: #### L 501.080 #### [facility] [address] [place], [address] Hemoglobin (Bld) [Mass/Vol] 10.2 g/dL Low 12.0-15. 0 [facility] Comment on above: Performed By: #### L 501.080 #### [facility] [address] [place], [address] IG% 0.200 Normal 0.0-0.9 [facility] Comment on above: Result Comment: IG% - Immature Granulocytes (promyelocytes, myelocytes and metamyelocytes) > 1% indicates that a LEFT SHIFT is Present. Performed By: #### L 501.080 #### [facility] [address] [place], [address] Lymphocytes/100 WBC (Bld) 17.6 % Low 19-41 [facility] Comment on above: Performed By: #### L 501.080 #### [facility] [address] [place], [address] MCH (RBC) [Entitic mass] 26.8 pg Low 27.0-32.0 [facility] Comment on above: Performed By: #### L 501.080 #### [facility] [address] [place], [address] MCHC (RBC) [Mass/Vol] 32.3 g/dL Normal 32-36 [facility] Comment on above: Performed By: #### L 501.080 #### [facility] [address] [place], [address] MCV (RBC) [Entitic vol] 82.9 fL Normal 81-99 [facility] Comment on above: Performed By: #### L 501.080 #### [facility] [address] [place], [address] Monocytes/100 WBC (Bld) 6.4 % Normal 0-10 [facility] Comment on above: Performed By: #### L 501.080 #### [facility] [address] [place], [address] Neutrophils/100 WBC (Bld) 74.7 % High 47-70 [facility] Comment on above: Performed By: #### L 501.080 #### [facility] [address] [place], [address] Nucleated RBC (Bld) [#/Vol] 0 10*3/uL Normal 0-5 [facility] Comment on above: Performed By: #### L 501.080 #### [facility] [address] [place], [address] Platelet mean volume (Bld) [Entitic vol] 8.7 fL Normal 6.2-12.0 [facility] Comment on above: Performed By: #### L 501.080 #### [facility] [address] [place], [address] Platelets (Bld) [#/Vol] 327 10*3/uL Normal 150-450 [facility] Comment on above: Performed By: #### L 501.080 #### [facility] [address] [place], [address] RBC (Bld) [#/Vol] 3.81 10*6/uL Low 4.2-5.4 [facility] Comment on above: Performed By: #### L 501.080 #### [facility] [address] [place], [address] RDW SD 44.7 fl High 35.1-43.9 [facility] Comment on above: Performed By: #### L 501.080 #### [facility] [address] [place], [address] WBC (Bld) [#/Vol] 8.0 10*3/uL Normal 4.4-11.0 [facility] Comment on above: Performed By: #### L 501.080 #### [facility] [address] [place], [address] CT HEAD WITHOUT CONTRASTon 1 CT HEAD [...] MCA distribution infarction. No hemorrhagic conversion. Normal [facility] CT Head WO contraston 2023 Addendum by Lucina Bolanos MD on 07/27/2024 11:39 PM EDT ADDENDUM #1 Findings and impression should include: There is mild ex vacuo dilation of the left lateral ventricle suggesting chronicity of the hypodensity in the left temporal lobe. Correlation with MRI is needed. [facility] IMPRESSION: Left acute/subacute MCA distribution infarction. [...] acute/subacute MCA distribution infarction. No hemorrhagic conversion. [facility] Radiology Study [facility] (narrative) [facility] Head WO contrastOrdered B y: Lucina Vail on 07-27-2024 [facility] Work Phone: Chest 1 Viewon 07-27-2024 Chest 1 View [facility] Imaging Services [address] [place] [address] Chest 1 View MR#: [id number] Acct: [id number] Name: POONAM VELOZ Rep #: [id number] : 1940 F 83 From: Nelson clement MD PCP: Dr. Clyde Downing MD Status: REG ER Study: Chest 1 View Date of Exam: 07/27/24 Exam# [id number] Ordering Dr: Faraz Harrison DO [id number] INDICATION: Neuro deficit, acute, stroke suspected EXAMINATION/TECHNIQUE: X-RAY - XR Chest 1 View COMPARISON: 02/07/2024. FINDINGS: The lungs are clear. The cardiomediastinal silhouette is unremarkable. No pleural effusion or pneumothorax. Degenerative changes of the thoracic spine. RAD/Chest 1 View IMPRESSION: No acute radiographic abnormalities. Electronically Signed: Nelson Cedillo MD at 16:15 EDT , CC: Dr. Clyde Downing MD; Dr. Faraz Harrison DO [place] Supervisor: Signed Normal [facility] Emergency Department Summary on 07-27-2024 Emergency Department Summary [facility] Medical Records Department [address] [place] [address] Emergency Department Summary 07/27/24 MR#: [id number] Acct: [id number] Name: POONAM VELOZ Rep #: [id number] : 1940 83 From: Faraz Orta PCP: [...] her right thumb. She is right-hand dominant. [facility] Medical History DDD (degenerative disc disease), [...] Resp normal (more content not included)... Normal [facility] H AND P Exam - Hospitaliston 07-27-2024 H&P Exam - Hospitalist [facility] Medical Records Department [address] [place] [address] H P Exam - Hospitalist 07/27/24 1543 MR#: [id number] Acct: [id number] Name: POONAM VELOZ Rep #: [id number] : 1940 83 From: Susy Beltran MD PCP: Dr. Clyde Downing MD Status:REG ER Location: ED HPI - General General Date of Admission: 07/27/24 Date of Service: 07/27/24 Chief Complaint: concern for cva HPI Narrative POONAM VELOZ, is a 83-year-old female history of CVA, depression, hypertension presented to [facility] ED 07/27/2024 with concerns for difficulty [...] voice any other new or acute complaints. [facility] Medical History DDD (degenerative disc disease), lumbar [...] Regular r (more content not included)... Normal [facility] L501.4020on 07-27-2024 TROPONIN-I HS 22 pg/mL Normal 3.0-54.0 [facility] Comment on above: Order Comment: 'TROP ' Serial specimen #1, #2 or #3: 1 Result Comment: Marion gay Note: New Test Units and Gender Specific Reference Ranges. For more information see Policy Stat Procedure [place] High Sensitivity Troponin (TNIH) and attachments. Performed By: #### L 501.080 #### [facility] Laboratory [address] [place], [address] MR Brain WO [facility] 07-27 IMPRESSION: No acute intracranial abnormalities. Chronic [...] intracranial abnormalities. Chronic left MCA distribution infarct. [facility] Radiology Study observation (narrative) [facility] MRI BRAIN WITHOUT CONTRASTon 07-27-2024 MRI BRAIN [...] abnormalities. Chronic left MCA distribution infarct. Normal [facility] MRI PLAIN FILM FOR NEURO EXA [...] radiopaque foreign bodies to preclude MRI. Normal [facility] IMPRESSION: No radiopaque foreign bodies to [...] No radiopaque foreign bodies to preclude MRI. [facility] Radiology Study observation (narrative) [facility] MRI PLAIN FILM FOR NEURO EXA MOrdered By: Buddy Núñez on 07-27-2024 [facility] Work Phone: Partial Thromboplast Timeon 07-27-2024 aPTT Coag (Bld) [Time] 34.7 s Normal 24.1-36.2 [facility] Comment on above: Performed By: #### L 501.080 #### [facility] Laboratory [address] [place], [address] Prothrombin Time w/INRon INR Coag (PPP) [Relative time] 1.1 {INR} Normal [facility] Comment on above: Performed By: #### L 501.080 #### [facility] Laboratory [address] [place], [address] PT Coag (PPP) [Time] 14.4 s Normal 11.7-14.9 [facility] Comment on above: Performed By: #### L 501.080 #### [facility] Laboratory [address] [place], [address] STROKE Brain/Head without Co nton 07-27-2024 STROKE Brain/Head without Cont [facility] Imaging Services [address] [place] [address] STROKE Brain/Head without Cont MR#: [id number] Acct: [id number] Name: POONAM VELOZ Rep #: [id number] : 1940 F 83 From: Rodríguez Chance MD PCP: Dr. Clyde Downing MD Status: REG ER Study: STROKE Brain/Head without Cont Date of Exam: Exam# [id number] Ordering Dr: Le,Faraz DO ADDENDUM by Dr. Rodríguez Chance MD on 07/27/24 at 1443 [id number] STUDY: CT BRAIN WITHOUT CONTRAST REASON FOR [...] MD; Dr. Faraz Harrison DO * Signed [id number] STUDY: CT BRAIN WITHOUT CONTRAST REASON FOR [...] Clyde Downing MD; Dr. Faraz Harrison DO [place] Supervisor: Signed Normal [facility] STROKE CTA Head AND Neck W/C onon 07-27-2024 STROKE CTA Head AND Neck W/Con [facility] Imaging Services [address] [place] [address] STROKE CTA Head AND Neck W/Con MR#: [id number] Acct: [id number] Name: POONAM VELOZ Rep #: [id number] : 1940 F 83 From: Rodríguez Chance MD PCP: Dr. Clyde Downing MD Status: REG ER Study: STROKE CTA Head AND Neck W/Con Date of Exam: Exam# [id number] Ordering Dr: Faraz Harrison DO ADDENDUM by Dr. Rodríguez Chance MD on 07/27/24 at 1500 [id number] STUDY: CTA HEAD AND NECK WITH CONTRAST [...] There is no demonstrated aneurysm of the [place]. There is left parietal volume [...] be sent when the communication is complete. [id number] STUDY: CTA HEAD AND NECK WITH CONTRAST REASON FOR EXAM: Female, 83 years old. Neuro deficit, acute, stroke suspected RADIATION DOS (more content not included)... Normal [facility] Urinalysis, Completeon 07-27 BACTERIA 0 SEEN Normal None Seen [facility] Comment on above: Order Comment: CLEAN CATCH Performed By: #### L 400.0001 #### [facility] Laboratory [address] [place], [address] EPI,SQUAMOUS 0 SEEN Normal - [facility] Comment on above: Order Comment: CLEAN CATCH Performed By: #### L 400.0001 #### [facility] Laboratory [address] [place], [address] Mucus Ql (Urine sed) 0 SEEN Normal [facility] Comment on above: Order Comment: CLEAN CATCH Performed By: #### L 400.0001 #### [facility] Laboratory [address] [place], [address] RBC 0 SEEN Normal 0-5 [facility] Comment on above: Order Comment: CLEAN CATCH Performed By: #### L 400.0001 #### [facility] Laboratory [address] [place], [address] WBC 0 SEEN Normal 0-5 [facility] Comment on above: Order Comment: CLEAN CATCH Performed By: #### L 400.0001 #### [facility] Laboratory [address] [place], [address] Comprehensive Metabolic Prof ilon 06-18-2024 Albumin [Mass/Vol] 3.5 g/dL Normal 3.2-5.0 [facility] Comment on above: Performed By: #### L 500.4050, L500.4100 #### [facility] Laboratory [address] [place], [address] Albumin/Globulin [Mass ratio] 0.8 {ratio} Low 0.9-2.4 [facility] Comment on above: Performed By: #### L 500.4050, L500.4100 #### [facility] Laboratory [address] [place], [address] ALK P 99 U/L Normal 45-117 [facility] Comment on above: Performed By: #### L 500.4050, L500.4100 #### [facility] Laboratory [address] [place], [address] ALT [Catalytic activity/Vol] 19 U/L Normal 13-56 [facility] Comment on above: Performed By: #### L 500.4050, L500.4100 #### [facility] [address] [place], [address] AST [Catalytic activity/Vol] 19 U/L Normal 15-37 [facility] Comment on above: Performed By: #### L 500.4050, L500.4100 #### [facility] Laboratory [address] [place], [address] Bilirubin [Mass/Vol] 0.20 mg/dL Normal 0.20-1.00 [facility] Comment on above: Result Comment: For patients on eltrombopag therapy, use of Dimension [place] TBIL is not recommended. Performed By: #### L 500.4050, L500.4100 #### [facility] [address] [place], [address] BUN/CRE 25.5 RATIO High 10-20 [facility] Comment on above: Performed By: #### L 500.4050, L500.4100 #### [facility] Laboratory [address] [place], [address] CA,Total 10.6 mg/dL High 8.5-10.1 [facility] Comment on above: Performed By: #### L 500.4050, L500.4100 #### [facility] Laboratory [address] [place], [address] Chloride [Moles/Vol] 103 mmol/L Normal 98-107 [facility] Comment on above: Performed By: #### L 500.4050, L500.4100 #### [facility] [address] [place], [address] CO2 [Moles/Vol] 26.0 mmol/L Normal 21.0-32.0 [facility] Comment on above: Performed By: #### L 500.4050, L500.4100 #### [facility] Laboratory [address] [place], [address] Creatinine [Mass/Vol] 0.82 mg/dL Normal 0.55-1.02 [facility] Comment on above: Result Comment: The validity of the calculated GFR GFRAA in patients over 70 years has not been determined. Clinical correlation is essential. Performed By: #### L 500.4050, L500.4100 #### [facility] [address] [place], [address] EST GFR - AA 85 mL/min Normal >60 [facility] [facility] Comment on above: Result Comment: Afri can [place] Citizen GFR Calc Performed By: #### L 500.4050, L500.4100 #### [facility] [address] [place], [address] GAP 8 Normal 5-15 [facility] Comment on above: Performed By: #### L 500.4050, L500.4100 #### [facility] [address] [place], [address] GFR/1.73 sq M.predicted among non-blacks MDRD (S/P/Bld) [Vol rate/Area] 71 mL/min/{1.73_m2} Normal >60 [facility] Comment on above: Result Comment: Non- GFR Calc Performed By: #### L 500.4050, L500.4100 #### [facility] [address] [place], [address] Globulin (S) [Mass/Vol] 4.5 g/dL High 2.2-4.2 [facility] Comment on above: Performed By: #### L 500.4050, L500.4100 #### [facility] [address] [place], [address] Glucose [Mass/Vol] 120 mg/dL High 74-106 [facility] Comment on above: Result Comment: Fast ing Glucose result from 100 to 125 mg/dL suggests IMPAIRED HOMEOSTASIS per A.D.A. criteria. Performed By: #### L 500.4050, L500.4100 #### [facility] [address] [place], [address] Potassium [Moles/Vol] 4.0 mmol/L Normal 3.5-5.1 [facility] Comment on above: Performed By: #### L 500.4050, L500.4100 #### [facility] [address] [place], [address] Sodium [Moles/Vol] 137 mmol/L Normal 136-145 [facility] Comment on above: Performed By: #### L 500.4050, L500.4100 #### [facility] [address] [place], [address] T PROT 8.0 g/dL Normal 6.4-8.2 [facility] Comment on above: Performed By: #### L 500.4050, L500.4100 #### [facility] [address] [place], [address] Urea nitrogen [Mass/Vol] 21 mg/dL High 7-18 [facility] Comment on above: Performed By: #### L 500.4050, L500.4100 #### [facility] [address] [place], [address] Lipid Profileon 06-18-2024 Cholesterol [Mass/Vol] 148 mg/dL Normal 200 [facility] Comment on above: Result Comment: <200 mg/dL Desirable 200-240 mg/dL Borderline >240 mg/dL High Risk Performed By: #### L 500.4050, L500.4100 #### [facility] [address] [place], [address] Cholesterol in HDL [Mass/Vol] 71 mg/dL Normal [facility] Comment on above: Result Comment: The drugs N-Acetylcysteine and Metamizole may falsely depress this assay. Reference Range HDL <40 mg/dL Low HDL Cholesterol HDL >or= 60 mg/dL High HDL Cholesterol Performed By: #### L 500.4050, L500.4100 #### [facility] [address] [place], [address] Cholesterol in LDL [Mass/Vol] 52 mg/dL Normal 0-130 [facility] Comment on above: Performed By: #### L 500.4050, L500.4100 #### [facility] [address] [place], [address] Cholesterol in VLDL [Mass/Vol] 25 mg/dL Normal 5-40 [facility] Comment on above: Performed By: #### L 500.4050, L500.4100 #### [facility] [address] [place], [address] Triglyceride [Mass/Vol] 123 mg/dL Normal [facility] Comment on above: Result Comment: The drugs N-Acetylcysteine and Metamizole may falsely depress this assay. Serum Triglycerides Reference Interval Normal <150 mg/dL Borderline high 150 - 199 mg/dL High 200 - 499 mg/dL Very High > or = 500 mg/dL Performed By: #### L 500.4050, L500.4100 #### [facility] [address] [place], [place], [address] SP/HP.Maxine 05-14-2024 SP/HP.SPREEV [facility] Speech Pathology [facility] [address] [place] [address] / REEVALUATION / MEDICARE RECERTIFICATION SPEECH THERAPY MR#: [id number] Acct: [id number] Name: POONAM VELOZ Rep #: [id number] : 1940 83 From: Raphael Calvin M.A., [facility] Referring Dr.: Dr. Clyde Downing MD Insurance: [facility] [id number] SELF PAY INSURANCE Visit History Visit Info Date of Eval: 04/13/24 Visit: 1 District Claims Manager: SHIELA History Attending Doctor: Referring Doctor: Reason [...] current prescribed condition?: No Personal Preferred language: Bhutanese Patient Allergies Allergies Allergies: Allergies No Known [...] identification of letters Objective Cog/Ling/Com Test Administered Knjwfibam-Uypmcqrlcc-I ommunication Assessment Administered: Yes Zmwrmnhtj-Lklvebicyt-B ommunication Assessment: Cognitive ??? Linguistic skills were [...] Tasks Convers (more content not included)... Normal [facility] SP/HP.SP.Shabbir 04-13-2024 SP/HP.SP.EV [facility] Speech Pathology [facility] [address] [place] [address] / REHABILITATION SERVICES INITIAL EVALUATION MR#: [id number] Acct: [id number] Name: POONAM VELOZ Rep #: [id number] : 1940 83 From: Raphael Calvin M.A., [facility] Referring Dr.: Dr. Clyde Downing MD Status: [facility] Insurance: [facility] [id number] SELF PAY INSURANCE Visit History Visit Info Date of Eval: 04/13/24 Visit: 1 District Claims Manager: SHIELA History Attending Doctor: Referring Doctor: Reason [...] current prescribed condition?: No Personal Preferred language: Bhutanese Patient Allergies Allergies Allergies: Allergies No Known Allergies Allergy (Verified 02/21/24 13:43) Objective Cog/Ling/Com Test Administered Lgpnucjtx-Wfdqkhsesd-F ommunication Assessment Administered: Yes Udpwbsums-Nkrveqpslq-O ommunication Assessment: Cognitive ??? Linguistic skills were [...] difficulties.: Quite (more content not included)... Normal [facility] Absolute lymphocyte countOrd ered By: Jayy Vera on 02-08-2024 Lymphocytes Auto (Unsp spec) [#/Vol] 1.64 10*3/uL 0.83-4.51 [facility] Automated lymphocyte count a s percentage of total leukocytesOrdered By: Jayy Vera on 02-08-2024 Lymphocytes/100 WBC Auto (Unsp spec) 20.1 % 19-41 [facility] Basophil percentageOrdered B y: Jayy Vera on 02-08-2024 Basophils/100 WBC (Bld) 0.5 % 0-1 [facility] Chloride [Moles/Vol] 107 mmol/L 98-107 [facility] Cholesterol [Mass/Vol] 162 mg/dL <200 [facility] Comment on above: <200 mg/dL Desirable 200-240 mg/dL Borderline >240 mg/dL High Risk Eosinophils/100 WBC (Bld) 1.8 % 0-5 [facility] Glucose [Mass/Vol] 106 mg/dL 74-106 [facility] Comment on above: Fasting Glucose resu lt from 100 to 125 mg/dL suggests IMPAIRED HOMEOSTASIS per A.D.A. criteria. Hemoglobin (Bld) [Mass/Vol] 11.2 g/dL 12.0-15. 0 [facility] Monocytes/100 WBC (Bld) 6.9 % 0-10 [facility] Neutrophils (Bld) [#/Vol] 5.7 10*3/uL 2.0-7.7 [facility] Neutrophils/100 WBC (Bld) 70.2 % 47-70 [facility] Potassium [Moles/Vol] 3.8 mmol/L 3.5-5.1 [facility] Sodium [Moles/Vol] 137 mmol/L 136-145 [facility] Triglyceride [Mass/Vol] 86 mg/dL <199 [facility] Comment on above: The drugs N-Acetylcy steine and Metamizole may falsely depress this assay.Serum Triglycerides Reference Interval Normal <150 mg/dL Borderline high 150 - 199 mg/dL High 200 - 499 mg/dL Very High > or = 500 mg/dL WBC (Bld) [#/Vol] 8.2 10*3/uL 4.4-11.0 [facility] Determination of erythrocyte mean corpuscular volume (MCV)Ordered By: Jayy Vera on 02-08-2024 MCV (RBC) [Entitic vol] 85.4 fL 81-99 [facility] Erythrocyte distribution wid th ratioOrdered By: Jayy Vera on 02-08-2024 Erythrocyte distribution width (RBC) [Ratio] 13.9 % 11.6-14.6 [facility] Erythrocyte distribution wid th standard deviationOrdered By: Jayy Vera on 02-08-2024 Erythrocyte distribution width (RBC) [Entitic vol] 43.5 fL 35.1-43.9 [facility] Hematocrit Auto (Bld) [Volum e fraction]Ordered By: Jayy Vera on 02-08-2024 Hematocrit (Bld) [Volume fraction] 34.4 % 37-47 [facility] Immature granulocytes/100 WB C Auto (Bld)Ordered By: Jayy Vera on 02-08-2024 Immature granulocytes/100 WBC (Bld) 0.500 % 0.0-0.9 [facility] Comment on above: IG% - Immature Granu locytes (promyelocytes, myelocytes and metamyelocytes) > 1% indicates that a LEFT SHIFT is Present. Laboratory - Chemistry and C hemistry - challengeOrdered By: Jayy Vera on 02-08-2024 Cholesterol in HDL [Mass/Vol] 49 mg/dL >40 [facility] Comment on above: The drugs N-Acetylcy steine and Metamizole may falsely depress this assay. Reference Range HDL <40 mg/dL Low HDL Cholesterol HDL >or= 60 mg/dL High HDL Cholesterol Cholesterol in LDL [Mass/Vol] 96 mg/dL 0-130 [facility] CO2 [Moles/Vol] 23.0 mmol/L 21.0-32.0 [facility] Urea nitrogen/Creatinine [Mass ratio] 21.1 mg/mg 10-20 [facility] - Hematology and Cell countsOrdered By: Jayy Vera on 02-08-2024 MCH (RBC) [Entitic mass] 27.8 pg 27.0-32.0 [facility] MCHC (RBC) [Mass/Vol] 32.6 g/dL 32-36 [facility] Nucleated RBC/100 WBC (Bld) [Ratio] 0 % 0-5 [facility] Platelet mean volume (Bld) [Entitic vol] 8.9 fL 6.2-12.0 [facility] Platelets (Bld) [#/Vol] 411 10*3/uL 150-450 [facility] No Panel InformationOrdered By: Jayy Vera on 02-08-2024 Estimated Creatinine Clearance Calc 47.95 ml/min [facility] Estimated GFR (MDRD) Amer 94 mL/min >60 [facility] Comment on above: GFR Calc Estimated GFR (MDRD) Non-Af Amer 78 mL/min >60 [facility] Comment on above: Non- GFR Calc VLDL Cholesterol 17 mg/dL 5-40 [facility] RBC Auto (Bld) [#/Vol]Ordere d By: Jayy Vera on 02-08-2024 RBC (Bld) [#/Vol] 4.03 10*6/uL 4.2-5.4 [facility] Serum or plasma calcium willy urement (mass/volume)Ordered By: Jayy Vera on 02-08-2024 Calcium [Mass/Vol] 8.9 mg/dL 8.5-10.1 [facility] Serum or plasma creatinine m easurement (mass/volume)Ordered By: Jayy Vera on 02-08-2024 Creatinine [Mass/Vol] 0.76 mg/dL 0.55-1.02 [facility] Comment on above: The validity of the calculated GFR & GFRAA in patients over 70 years has not been determined. Clinical correlation is essential. Serum or plasma urea nitroge n measurement (mass/volume)Ordered By: Jayy Vera on 02-08-2024 Urea nitrogen [Mass/Vol] 16 mg/dL 7-18 [facility] Thin prep Papanicolaou smear with manual screeningOrdered By: Jayy Vera on 02-08-2024 Thin prep Papanicolaou smear with manual screening 7 5-15 [facility] Absolute lymphocyte countOrd ered By: Anselmo Potts on 02-07-2024 Lymphocytes Auto (Unsp spec) [#/Vol] 1.28 10*3/uL 0.83-4.51 [facility] Activated partial thrombopla stin time (aPTT) in platelet poor plasma by coagulation aOrdered By: Anselmo Potts on 02-07-2024 aPTT Coag (PPP) [Time] 38.9 s 24.1-36.2 [facility] Automated lymphocyte count a s percentage of total leukocytesOrdered By: Anselmo Potts on 02-07-2024 Lymphocytes/100 WBC Auto (Unsp spec) 14.7 % 19-41 [facility] Basophil percentageOrdered B y: Anselmo Potts on 02-07-2024 Basophils/100 WBC (Bld) 0.6 % 0-1 [facility] Chloride [Moles/Vol] 106 mmol/L 98-107 [facility] Eosinophils/100 WBC (Bld) 2.8 % 0-5 [facility] Glucose [Mass/Vol] 153 mg/dL 74-106 [facility] Comment on above: Fasting Glucose resu lt greater than or equal to 126 mg/dL suggests DIABETES MELLITUS per A.D.A. criteria. Hemoglobin (Bld) [Mass/Vol] 11.8 g/dL 12.0-15. 0 [facility] Monocytes/100 WBC (Bld) 6.3 % 0-10 [facility] Neutrophils (Bld) [#/Vol] 6.6 10*3/uL 2.0-7.7 [facility] Neutrophils/100 WBC (Bld) 75.3 % 47-70 [facility] Potassium [Moles/Vol] 3.6 mmol/L 3.5-5.1 [facility] Sodium [Moles/Vol] 138 mmol/L 136-145 [facility] WBC (Bld) [#/Vol] 8.7 10*3/uL 4.4-11.0 [facility] Determination of erythrocyte mean corpuscular volume (MCV)Ordered By: Anselmo Potts on 02-07-2024 MCV (RBC) [Entitic vol] 85.9 fL 81-99 [facility] Erythrocyte distribution wid th ratioOrdered By: Anselmo Potts on 02-07-2024 Erythrocyte distribution width (RBC) [Ratio] 14.1 % 11.6-14.6 [facility] Erythrocyte distribution wid th standard deviationOrdered By: Anselmo Potts on 02-07-2024 Erythrocyte distribution width (RBC) [Entitic vol] 44.7 fL 35.1-43.9 [facility] Hematocrit Auto (Bld) [Volum e fraction]Ordered By: Anselmo Potts on 02-07-2024 Hematocrit (Bld) [Volume fraction] 36.0 % 37-47 [facility] Immature granulocytes/100 WB C Auto (Bld)Ordered By: Anselmo Potts on 02-07-2024 Immature granulocytes/100 WBC (Bld) 0.300 % 0.0-0.9 [facility] Comment on above: IG% - Immature Granu locytes (promyelocytes, myelocytes and metamyelocytes) > 1% indicates that a LEFT SHIFT is Present. Laboratory - Chemistry and C hemistry - challengeOrdered By: Anselmo Potts on 02-07-2024 CO2 [Moles/Vol] 24.0 mmol/L 21.0-32.0 [facility] Urea nitrogen/Creatinine [Mass ratio] 26.2 mg/mg 10-20 [facility] - CoagulationOrde red By: Anselmo Potts on 02-07-2024 INR Coag (Bld) [Relative time] 1.1 {INR} [facility] PT Coag (PPP) [Time] 14.3 s 11.7-14.9 [facility] - Hematology and Cell countsOrdered By: Anselmo Potts on 02-07-2024 MCH (RBC) [Entitic mass] 28.2 pg 27.0-32.0 [facility] MCHC (RBC) [Mass/Vol] 32.8 g/dL 32-36 [facility] Nucleated RBC/100 WBC (Bld) [Ratio] 0 % 0-5 [facility] Platelet mean volume (Bld) [Entitic vol] 8.8 fL 6.2-12.0 [facility] Platelets (Bld) [#/Vol] 410 10*3/uL 150-450 [facility] No Panel InformationOrdered By: Anselmo Potts on 02-07-2024 Estimated Creatinine Clearance Calc 41.31 ml/min [facility] Estimated GFR (MDRD) Amer 72 mL/min >60 [facility] Comment on above: GFR Calc Estimated GFR (MDRD) Non-Af Amer 60 mL/min >60 [facility] Comment on above: Non- GFR Calc Troponin I High Sensitivity 18 pg/mL 3.0-54.0 [facility] Comment on above: Please Note: New Abena t Units and Gender Specific Reference Ranges. For more information see Policy Stat Procedure [place] High Sensitivity Troponin (TNIH) and attachments. RBC Auto (Bld) [#/Vol]Ordere d By: Anselmo Potts on 02-07-2024 RBC (Bld) [#/Vol] 4.19 10*6/uL 4.2-5.4 [facility] Serum or plasma calcium willy urement (mass/volume)Ordered By: Anselmo Potts on 02-07-2024 Calcium [Mass/Vol] 9.5 mg/dL 8.5-10.1 [facility] Serum or plasma creatinine m easurement (mass/volume)Ordered By: Anselmo Potts on 02-07-2024 Creatinine [Mass/Vol] 0.95 mg/dL 0.55-1.02 [facility] Comment on above: The validity of the calculated GFR & GFRAA in patients over 70 years has not been determined. Clinical correlation is essential. Serum or plasma urea nitroge n measurement (mass/volume)Ordered By: Anselmo Potts on 02-07-2024 Urea nitrogen [Mass/Vol] 25 mg/dL 7-18 [facility] Thin prep Papanicolaou smear with manual screeningOrdered By: Anselmo Potts on 02-07-2024 Thin prep Papanicolaou smear with manual screening 135 mg/dL 74-106 [facility] Comment on above: MANAGEMENT OF PATIEN T CARE PER NURSING PROTOCOL Thin prep Papanicolaou smear with manual screening 8 5-15 [facility] Basophil percentageOrdered B y: Clyde Downing on 09-12-2023 Chloride [Moles/Vol] 108 mmol/L 98-107 [facility] Cholesterol [Mass/Vol] 234 mg/dL <200 [facility] Comment on above: <200 mg/dL Desirable 200-240 mg/dL Borderline >240 mg/dL High Risk Glucose [Mass/Vol] 106 mg/dL 74-106 [facility] Comment on above: Fasting Glucose resu lt from 100 to 125 mg/dL suggests IMPAIRED HOMEOSTASIS per A.D.A. criteria. Potassium [Moles/Vol] 4.3 mmol/L 3.5-5.1 [facility] Sodium [Moles/Vol] 142 mmol/L 136-145 [facility] Triglyceride [Mass/Vol] 92 mg/dL <199 [facility] Comment on above: The drugs N-Acetylcy steine and Metamizole may falsely depress this assay.Serum Triglycerides Reference Interval Normal <150 mg/dL Borderline high 150 - 199 mg/dL High 200 - 499 mg/dL Very High > or = 500 mg/dL Laboratory - Chemistry and C hemistry - challengeOrdered By: Clyde Downing on 09-12-2023 CO2 [Moles/Vol] 28.0 mmol/L 21.0-32.0 [facility] Urea nitrogen/Creatinine [Mass ratio] 22.8 mg/mg 10-20 [facility] No Panel InformationOrdered By: Clyde Downing on 09-12-2023 Estimated GFR (MDRD) Amer 85 mL/min >60 [facility] Comment on above: GFR Calc Estimated GFR (MDRD) Non-Af Amer 70 mL/min >60 [facility] Comment on above: Non- GFR Calc Serum or plasma calcium willy urement (mass/volume)Ordered By: Clyde Downing on 09-12-2023 Calcium [Mass/Vol] 9.0 mg/dL 8.5-10.1 [facility] Serum or plasma cholesterol in HDL measurement (mass/volume)Ordered By: Clyde Downing on 09-12-2023 Cholesterol in HDL [Mass/Vol] 77 mg/dL >40 [facility] Comment on above: The drugs N-Acetylcy steine and Metamizole may falsely depress this assay. Reference Range HDL <40 mg/dL Low HDL Cholesterol HDL >or= 60 mg/dL High HDL Cholesterol Serum or plasma cholesterol in VLDL measurement (mass/volume)Ordered By: Clyde Downing on 09-12-2023 Cholesterol in VLDL [Mass/Vol] 18 mg/dL 5-40 [facility] Serum or plasma creatinine m easurement (mass/volume)Ordered By: Clyed Downing on 09-12-2023 Creatinine [Mass/Vol] 0.83 mg/dL 0.55-1.02 [facility] Comment on above: The validity of the calculated GFR & GFRAA in patients over 70 years has not been determined. Clinical correlation is essential. Serum or plasma low density lipoprotein (LDL) cholesterol measurement (mass/volume)Ordered By: Clyde Downing on 09-12-2023 Cholesterol in LDL [Mass/Vol] 139 mg/dL 0-130 [facility] Serum or plasma urea nitroge n measurement (mass/volume)Ordered By: Clyde Downing on 09-12-2023 Urea nitrogen [Mass/Vol] 19 mg/dL 7-18 [facility] Thin prep Papanicolaou smear with manual screeningOrdered By: Clyde Downing on 09-12-2023 Thin prep Papanicolaou smear with manual screening 6 5-15 [facility] Basophil percentageon 2021 Chloride [Moles/Vol] 107 mmol/L 98-107 [facility] Work Phone: Cholesterol [Mass/Vol] 233 mg/dL <200 [facility] Work Phone: Comment on above: <200 mg/dL Desirable 200-240 mg/dL Borderline >240 mg/dL High Risk Glucose [Mass/Vol] 104 mg/dL 74-106 [facility] Work Phone: Comment on above: Fasting Glucose resu lt from 100 to 125 mg/dL suggests IMPAIRED HOMEOSTASIS per A.D.A. criteria. Potassium [Moles/Vol] 4.1 mmol/L 3.5-5.1 [facility] Work Phone: Sodium [Moles/Vol] 139 mmol/L 136-145 [facility] Work Phone: Triglyceride [Mass/Vol] 105 mg/dL <199 [facility] Work Phone: Comment on above: The drugs N-Acetylcy steine and Metamizole may falsely depress this assay.Serum Triglycerides Reference Interval Normal <150 mg/dL Borderline high 150 - 199 mg/dL High 200 - 499 mg/dL Very High > or = 500 mg/dL Laboratory - Chemistry and C hemistry - challengeon 09-15-2022 CO2 [Moles/Vol] 25.0 mmol/L 21.0-32.0 [facility] Work Phone: Urea nitrogen/Creatinine [Mass ratio] 24.6 mg/mg 10-20 [facility] Work Phone: No Panel Informationon 09-15 Estimated GFR (MDRD) Amer 82 mL/min >60 [facility] Work Phone: Comment on above: GFR Calc Estimated GFR (MDRD) Non-Af Amer 68 mL/min >60 [facility] Work Phone: Comment on above: Non- GFR Calc Serum or plasma calcium willy urement (mass/volume)on 09-15-2022 Calcium [Mass/Vol] 9.1 mg/dL 8.5-10.1 [facility] Work Phone: Serum or plasma cholesterol in HDL measurement (mass/volume)on 09-15-2022 Cholesterol in HDL [Mass/Vol] 69 mg/dL >40 [facility] Work Phone: Comment on above: The drugs N-Acetylcy steine and Metamizole may falsely depress this assay. Reference Range HDL <40 mg/dL Low HDL Cholesterol HDL >or= 60 mg/dL High HDL Cholesterol Serum or plasma cholesterol in VLDL measurement (mass/volume)on 09-15-2022 Cholesterol in VLDL [Mass/Vol] 21 mg/dL 5-40 [facility] Work Phone: Serum or plasma creatinine m easurement (mass/volume)on 09-15-2022 Creatinine [Mass/Vol] 0.85 mg/dL 0.55-1.02 [facility] Work Phone: Comment on above: The validity of the calculated GFR & GFRAA in patients over 70 years has not been determined. Clinical correlation is essential. Serum or plasma low density lipoprotein (LDL) cholesterol measurement (mass/volume)on 09-15-2022 Cholesterol in LDL [Mass/Vol] 143 mg/dL 0-130 [facility] Work Phone: Serum or plasma urea nitroge n measurement (mass/volume)on 09-15-2022 Urea nitrogen [Mass/Vol] 21 mg/dL 7-18 [facility] Work Phone: Thin prep Papanicolaou smear with manual screeningon 09-15-2022 Thin prep Papanicolaou smear with manual screening 7 5-15 [facility] Work Phone: Basophil percentageon 2021 Chloride [Moles/Vol] 104 mmol/L 98-107 [facility] Work Phone: Glucose [Mass/Vol] 91 mg/dL 74-106 [facility] Work Phone: Potassium [Moles/Vol] 4.1 mmol/L 3.5-5.1 [facility] Work Phone: Sodium [Moles/Vol] 138 mmol/L 136-145 [facility] Work Phone: Laboratory - Chemistry and C hemistry - challengeon 03-17-2022 CO2 [Moles/Vol] 30.0 mmol/L 21.0-32.0 [facility] Work Phone: Urea nitrogen/Creatinine [Mass ratio] 26.5 mg/mg 10-20 [facility] Work Phone: No Panel Informationon 03-17 Estimated GFR (MDRD) Amer 73 mL/min >60 [facility] Work Phone: Comment on above: GFR Calc Estimated GFR (MDRD) Non-Af Amer 61 mL/min >60 [facility] Work Phone: Comment on above: Non- GFR Calc Serum or plasma calcium willy urement (mass/volume)on 03-17-2022 Calcium [Mass/Vol] 9.9 mg/dL 8.5-10.1 [facility] Work Phone: Serum or plasma creatinine m easurement (mass/volume)on 03-17-2022 Creatinine [Mass/Vol] 0.94 mg/dL 0.55-1.02 [facility] Work Phone: Comment on above: The validity of the calculated GFR & GFRAA in patients over 70 years has not been determined. Clinical correlation is essential. Serum or plasma urea nitroge n measurement (mass/volume)on 03-17-2022 Urea nitrogen [Mass/Vol] 25 mg/dL 7-18 [facility] Work Phone: Thin prep Papanicolaou smear with manual screeningon 03-17-2022 Thin prep Papanicolaou smear with manual screening 4 02-14 [facility] Work Phone: Vital Signs Date Time Vital Sign Value Performing Clinician Faci lity 10-31-2024 07:56-0500 Body temperature 97.7 [degF] Rosales Zelaya MD Work Phone: [facility] 10-31-2024 07:56-0500 Diastolic blood pressure 70 mm[Hg] Rosales Zelaya MD Work Phone: [facility] 10-31-2024 07:56-0500 Heart rate 85 /min Rosales Zelaya MD Work Phone: [facility] 10-31-2024 07:56-0500 Respiratory rate 20 /min Rosales Zelaya MD Work Phone: [facility] 10-31-2024 07:56-0500 SaO2% (BldA) [Mass fraction] 99 % Rosales Zelaya MD Work Phone: [facility] 10-31-2024 07:56-0500 Systolic blood pressure 165 mm[Hg] Rosales Zelaya MD Work Phone: [phone] [address] 10-30-2024 06:00-0500 Body mass index (BMI) [Ratio] 24.41 kg/m2 Rosales Zelaya MD Work Phone: [phone] [address] 10-30-2024 06:00-0500 Body weight 58.6 kg Rosales Zelaya MD Work Phone: [phone] [address] 10-27-2024 19:30-0500 Body temperature 97.2 [degF] Dr. Clyde Downing MD Work Phone: [facility] 10-27-2024 19:30-0500 Diastolic blood pressure 60 mm[Hg] Dr. Clyde Downing MD Work Phone: [facility] 10-27-2024 19:30-0500 Heart rate 82 /min Dr. Clyde Downing MD Work Phone: [facility] 10-27-2024 19:30-0500 Respiratory rate 14 /min Dr. Clyde Downing MD Work Phone: [facility] 10-27-2024 19:30-0500 SaO2% (BldA) [Mass fraction] 98 % Dr. Clyde Downing MD Work Phone: [facility] 10-27-2024 19:30-0500 Systolic blood pressure 110 mm[Hg] Dr. Clyde Downing MD Work Phone: [facility] 10-27-2024 16:37-0500 Body height 154.[address] Clyde Downing MD Work Phone: [facility] 10-27-2024 16:37-0500 Body mass index (BMI) [Ratio] 24.7 kg/m2 Dr. Clyde Downing MD Work Phone: [facility] 10-27-2024 16:37-0500 Body weight 59.[address] Clyde Downing MD Work Phone: [facility] 07-30-2024 11:36-0400 Body temperature 97.3 [degF] Elizabet Foreman MD Work Phone: [facility] 07-30-2024 11:36-0400 Diastolic blood pressure 71 mm[Hg] Elizabet Foreman MD Work Phone: [facility] 07-30-2024 11:36-0400 Heart rate 94 /min Elizabet Foreman MD Work Phone: [facility] 07-30-2024 11:36-0400 Respiratory rate 16 /min Elizabet Foreman MD Work Phone: [facility] 07-30-2024 11:36-0400 SaO2% (BldA) [Mass fraction] 97 % Elizabet Foreman MD Work Phone: [facility] 07-30-2024 11:36-0400 Systolic blood pressure 138 mm[Hg] Elizabet Foreman MD Work Phone: [facility] 07-28-2024 07:56-0400 Body height 154.9 cm Elizabet Foreman MD Work Phone: [facility] 07-28-2024 07:56-0400 Body mass index (BMI) [Ratio] 26.41 kg/m2 Elizabet Foreman MD Work Phone: [facility] 07-28-2024 07:56-0400 Body weight 63.4 kg Elizabet Foreman MD Work Phone: [facility] 02-08-2024 16:28-0400 Body mass index (BMI) [Ratio] 26.7 kg/m2 Dr. Clyde Downing Work Phone: [facility] 02-08-2024 14:30-0400 Body temperature 98.3 [degF] Dr. Clyde Downing Work Phone: [facility] 02-08-2024 14:30-0400 Diastolic blood pressure 75 mm[Hg] Dr. Clyde Downing Work Phone: [facility] 02-08-2024 14:30-0400 Heart rate 96 /min Dr. Clyde Downing Work Phone: [facility] 02-08-2024 14:30-0400 Respiratory rate 18 /min Dr. Clyde Downing Work Phone: [facility] 02-08-2024 14:30-0400 SaO2% (BldA) [Mass fraction] 98 % Dr. Clyde Downing Work Phone: [facility] 02-08-2024 14:30-0400 Systolic blood pressure 148 mm[Hg] Dr. Clyde Downing Work Phone: [facility] 02-07-2024 15:18-0400 Body height [address] Clyde Downing Work Phone: [phone] [address] 02-07-2024 15:18-0400 Body weight 65.[address] Clyde Downing Work Phone: [facility] 02-07-2024 13:27-0400 Body temperature 98 [degF] Dr. Clyde Downing Work Phone: [facility] 02-07-2024 13:27-0400 Diastolic blood pressure 81 mm[Hg] Dr. Clyde Downing Work Phone: [facility] 02-07-2024 13:27-0400 Heart rate 82 /min Dr. Clyde Downing Work Phone: [facility] 02-07-2024 13:27-0400 Respiratory rate 17 /min Dr. Clyde Downing Work Phone: [facility] 02-07-2024 13:27-0400 SaO2% (BldA) [Mass fraction] 94 % Dr. Clyde Downing Work Phone: [facility] 02-07-2024 13:27-0400 Systolic blood pressure 126 mm[Hg] Dr. Clyde Downing Work Phone: [facility] 02-07-2024 13:[id number] Body height [address] Clyde Downing Work Phone: [facility] 02-07-2024 13:0400 Body mass index (BMI) [Ratio] 26.7 kg/m2 Dr. Clyde Downing Work Phone: [facility] 02-07-2024 13:040 Body weight 65.[address] Clyde Downing Work Phone: [facility] Encounters Encounter Date Encounter Type Care Provider Facility Start: 02-22-2025 Non-patient / Non-visit Dr. Ricardo Orr MD -[facility] Start: 02-22-2025 End: 02-22-[address] Clyde Downing MD Work Phone: [facility] Work Phone: Start: 02-22-2025 End: 02-22-2025 Patient encounter procedure Thania STEPHENSON -Cardiovascular Services Work Phone: Start: 02-22-2025 End: 02-22-2025 ambulatory Thania Wisdom Facility:[facility] Start: 01-07-2025 End: 01-07-[address] Clyde Downing MD Work Phone: [facility] Work Phone: Start: 01-07-2025 End: 01-07-[address] Clyde Downing MD -Laboratory, [facility] Start: 01-07-2025 End: 01-07-2025 ambulatory Clyde Downing Facility:[facility] Start: 10-27-2024 End: 10-31-2024 Evaluation and management of inpatient Rosales Zelaya MD Work Phone: [phone] Comment on above: Stroke Start: 10-27-2024 End: 10-27-2024 Emergency department patient visit Dr. Song Yanez DO -Emergency Department Work Phone: Start: 09-24-2024 ambulatory Thania Wisdom Facility:[facility] Start: 09-24-2024 Non-patient / Non-visit Dr. Ricardo Orr MD -[facility] Start: 09-24-2024 End: 09-24-2024 Patient encounter procedure Thania Wisdom [place] -Cardiovascular Services Work Phone: Start: 09-24-2024 End: 09-24-2024 ambulatory Thania Wisdom Facility:[facility] Start: 09-14-2024 End: 09-14-[address] Clyde Downing MD -[facility] Start: 09-14-2024 End: 09-14-2024 ambulatory Clyde Downing Facility:[facility] Start: 08-03-2024 End: 08-03-2024 ambulatory Clyde Downing Facility:[facility] Start: 07-27-2024 End: 07-30-2024 Evaluation and management of inpatient Elizabet Foreman MD Work Phone: [phone] Comment on above: Stroke Start: 07-27-2024 End: 07-27-2024 Emergency department patient visit Clyde Downing Facility:[facility] Start: 07-27-2024 End: 07-27-2024 ambulatory Clyde Downing Facility:[facility] Start: 06-18-2024 End: 06-18-2024 ambulatory Clyde Downing Facility:[facility] Start: 02-08-2024 Non-patient / Non-visit Dr. Clyde Downing Work Phone: [facility] Inpatient Physicians Work Phone: Start: 02-08-2024 Non-patient / Non-visit Dr. Clyde Downing Work Phone: [facility] Start: 02-07-2024 Non-patient / Non-visit Dr. Clyde Downing Work Phone: [facility] Start: 02-07-2024 Non-patient / Non-visit Dr. Clyde Downing Work Phone: [facility] Work Phone: Start: 02-07-2024 End: 02-08-2024 Evaluation and management of inpatient Dr. Clyde Downing Work Phone: [facility]-Intensive Care Unit Work Phone: Start: 01-16-2024 End: 01-16-[address] Clyde Downing Work Phone: [facility] Work Phone: Start: 11-07-2023 End: 11-07-[address] Clyde Downing Work Phone: [facility] Work Phone: Start: 09-12-2023 End: 09-12-[address] Clyde Downing Work Phone: [facility] Work Phone: Start: 09-12-2023 End: 09-12-[address] Clyde Downing Work Phone: [facility] Start: 06-13-2023 End: 06-13-[address] Clyde Downing Work Phone: [facility] Work Phone: Start: 09-15-2022 End: 09-15-[address] Clyde Downing Work Phone: [facility] Work Phone: Start: 09-15-2022 End: 09-15-[address] Clyde Downing Work Phone: [facility] Start: 08-16-2022 End: 08-16-[address] Clyde Downing Work Phone: [facility] Start: 03-17-2022 End: 03-17-[address] Clyde Downing Work Phone: [facility] Start: 12-07-2021 End: 12-07-[address] Clyde Downing Work Phone: [facility] Procedures Date Procedure Procedure Detail [...] Start: 10-27-2024 Plain chest X-ray Dr. Martha Downing MD Work Phone: Start: 10-27-2024 CT [...] Detail Author Start: 02-13-2030 Tetanus vaccination TETANUS [facility] Start: 10-31-2025 Potassium [Moles/vol ume] in Serum or Plasma POTASSIUM [facility] Start: 07-30-2025 Potassium [Moles/vol ume] in Serum or Plasma POTASSIUM [facility] Start: 10-31-2024 End: 10-31-2025 Cardiac telemetry [employer] TE[employer]MET[employer] ECG Routine Cerebrovascular accident (CVA), unspecified mechanism Other cerebrovascular vasospasm and vasoconstriction Expected: 10/31/2024, Expires: 10/31/2025 [facility] Comment on above: Expected: 10/31/2024 , Expires: 10/31/2025 Start: 10-27-2024 [facility] Start: 10-27-2024 Bleeding precautions [facility] Start: 10-27-2024 Consultation [facility] Start: 10-27-2024 End: 10-27-2024 Oxygen therapy [facility] Start: 10-27-2024 [facility] Start: 02-08-2024 Patient discharge [facility] Start: 02-08-2024 End: 02-08-2024 Referral to service [facility] Start: 02-08-2024 Blood chemistry [facility] Start: 02-07-2024 Application of intermittent pneumatic compression device [facility] Start: 02-07-2024 Following clinical pathway protocol [facility] Start: 02-07-2024 Ambulation without limitation [facility] Start: 02-07-2024 Aspiration precautions [facility] Start: 02-07-2024 Assessment of risk o f venous thromboembolism [facility] Start: 02-07-2024 Cardiac monitoring [facility] Start: 02-07-2024 Catheterization of vein [facility] Start: 02-07-2024 Consultation [facility] Start: 02-07-2024 Continuous pulse oximetry [facility] Start: 02-07-2024 Elevation of head of bed [facility] Start: 02-07-2024 Exercises [facility] Start: 02-07-2024 Insertion of cathete r into peripheral vein [facility] Start: 02-07-2024 Measuring intake and output [facility] Start: 02-07-2024 Notification of physician [facility] Start: 02-07-2024 Oxygen therapy [facility] Start: 02-07-2024 Patient referral to dietitian [facility] Start: 02-07-2024 Providing care accor ding to standard [facility] Start: 02-07-2024 Referral to occupati onal therapist [facility] Start: 02-07-2024 Referral to service [facility] Start: 02-07-2024 Speech therapy assessment [facility] Start: 02-07-2024 Telemedicine consult ation with patient [facility] Start: 02-07-2024 Tobacco use cessatio n education [facility] Start: 02-07-2024 End: 02-07-2024 [facility] Start: 02-07-2024 Vital signs measurements [facility] Start: 02-07-2024 Admission procedure [facility] Start: 02-07-2024 Verification routine [facility] Start: 02-07-2024 MRI of brain without contrast Brain without Contrast [facility] Start: 2007 Pneumococcal vaccination PNEUM OCOCCAL VACCINE SERIES (1 of 1 - PCV) [facility] Start: 1987 Screening for malign ant neoplasm of colon COLORECTAL CANCER SCREENING DISCUSSION [facility] Start: 1982 Screening for malign ant neoplasm of breast MAMMOGRAM SCREENING DISCUSSION [facility] Start: 1963 Screening for malign ant neoplasm of cervix CERVICAL CANCER SCREENING DISCUSSION [facility] Start: 1942 Screening for osteoporosis DEXA SCAN DISCUSSION [facility] Anion gap measurement [facility] BUN/Creatinine ratio [facility] Calcium [Mass/volume ] in Serum or Plasma [facility] Carbon dioxide, tota l [Moles/volume] in Serum or Plasma [facility] Cardiac event recording [facility] Chloride [Moles/volu me] in Serum or Plasma [facility] Cholesterol [Mass/vo lume] in Serum or Plasma [facility] Cholesterol in HDL [Mass/volume] in Serum or Plasma [facility] Cholesterol in LDL [Mass/volume] in Serum or Plasma [facility] Creatinine [Moles/vo lume] in Serum or Plasma [facility] End: 10-29-2024 Echocardiography ECHOCARDIOGRAM Echocardiography Routine One Time for 1 Occurrences starting 10/29/2024 until 10/29/2024 [facility] Work Phone: Comment on above: One Time for 1 Occur rences starting 10/29/2024 until 10/29/2024 Erythrocyte mean corpuscular volume determination [facility] Glucose [Mass/volume ] in Serum or Plasma [facility] Hematocrit [Volume Fraction] of Blood [facility] Hemoglobin [Mass/vol ume] in Blood [facility] Leukocytes [#/volume ] in Blood [facility] Mean corpuscular hemoglobin concentration determination [facility] Mean corpuscular hemoglobin determination [facility] Measurement of renal function [facility] Neutrophil count [facility] Neutrophil percent differential count [facility] Patient Education Discharge Inst ructions for Stroke [facility] Work Phone: Patient referral [facility] Work Phone: Platelets [#/volume] in Blood [facility] Potassium [Moles/vol ume] in Serum or Plasma [facility] Red blood cell count [facility] Red cell distributio n width determination [facility] Sodium [Moles/volume ] in Serum or Plasma [facility] End: 10-27-2024 Standard ECG [facility] Comment on above: One Time for 1 Occur rences starting 10/27/2024 until 10/27/2024 Triglycerides measurement [facility] Urea nitrogen [Mass/volume] in Serum or Plasma [facility] VLDL cholesterol measurement [facility] Payers Date Payer Category Payer Self-pay [id number] 2023 Medicare [facility] HMO OR PPO [facility] PPO [id number] 2023-Present [address] [address] [place] [address] [id number] 2023 Unknown [id number] 2007 Medicare [id number] 1940 Unknown [id number] 1940 Unknown [id number] Unknown [id number] Unknown [id number] Unknown [id number] Unknown [id number] Unknown [id number] Unknown [id number] Unknown [id number] Unknown [id number] Unknown [id number] Unknown [id number] Unknown [id number] Unknown [id number] Unknown [id number] Social History Date Type Detail Facility Start: 12-07-2021 End: 10-27-2024 Tobacco smoking status NHIS Unknown if ever smoked [facility] Start: 1940 Sex Assigned At Female [facility] Start: 07-29-2024 End: 10-30-2024 History of Social function [facility] Start: 07-29-2024 End: 10-30-2024 [facility] Utilities [facility] Has the VOSS, or [facility] Reviews [employer] Information threatened to shut off services in your home in past 12Mo No [facility] (I/We) worried sally er (my/our) food would run out before (I/we) got money to buy more. Never true [facility] In the past 12 month s, has lack of transportation kept you from medical appointments or from getting medications? No [facility] Start: 1940 Sex assigned at Not on file [facility] Start: 10-27-2024 Tobacco smoking stat NHIS Never smoked tobacco [facility] Start: 10-27-2024 Tobacco use and exposure Smoke less tobacco non-user [facility] Start: 10-29-2024 Alcoholic beverage intake Life time non-drinker (finding) [facility] Start: 01-11-2025 Sex Female (finding) [facility] Goals Date Patient Goal Desired Activity /State Functional Status Date Assessment Result Facility 02-08-2024 Functional status Ambulates;Bedside Commo de [facility] Work Phone: Mental Status Date Assessment Result Facility 10-27-2024 Cognitive function Voice/Name [facility] Work Phone: 02-08-2024 Cognitive function Voice/Name [facility] Work Phone: 02-07-2024 Cognitive function Voice/Name [facility] Work Phone: Clinical Notes 02-07-2024 to [...] been added to the AVS as appropriate. [facility] 10-31-2024 Miscellaneous Notes Stroke patient education has [...] for the Comprehensive Stroke Center at the [facility]. I provided a BEFAST magnet and [...] she requests that we send referrals to [facility], which I have. I then left my card assuring the patient that they should feel free to contact me with any questions. Lastly, Mail'Inside BodyGuardian Mini+ placed on patient. Education provided and all questions answered. Instructions added to AVS and updated bedside RN. MAXWELL Stephenson, RN Stroke Nurse Navigator [facility] [place] [address] Office [email or web address] Problem: Adult Inpatient Plan of Care Goal: [...] fall risk. 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: DIE ENGRAVER - Cognition Goal: Ongoing Assessment - Patient will participate in ongoing dynamic assessment of motor speech, expressive/receptive language, and cognitive-linguistic skills across 1 session to better assess deficits and most appropriately guide DIE ENGRAVER plan of care 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: DIE ENGRAVER - Language Goal: Command Following - Patient [...] communicate wants/needs 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: DIE ENGRAVER - Cognition Goal: Ongoing Assessment - Patient will participate in ongoing dynamic assessment of motor speech, expressive/receptive language, and cognitive-linguistic skills across 1 session to better assess deficits and most appropriately guide DIE ENGRAVER plan of care Outcome: Ongoing Problem: DIE ENGRAVER - Language Goal: Command Following - Patient [...] Grace Villanueva RN documented in this encounter [facility] 10-31-2024 Plan of care note Images from the original note were not included. I visited with Poonam Veloz this morning as the Stroke Nurse Navigator for the Comprehensive Stroke Center at the [facility]. I provided a BEFAST magnet and [...] she requests that we send referrals to [facility], which I have. I then left my card assuring the patient that they should feel free to contact me with any questions. Lastly, [employer] BodyGuardian Mini+ placed on patient. Education provided and all questions answered. Instructions added to AVS and updated bedside RN. MAXWELL Stephenson, RN Stroke Nurse Navigator [facility] [place] [address] Office [email or web address] 10-31-2024 Plan of care note Problem: Adult [...] fall risk. 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: DIE ENGRAVER - Cognition Goal: Ongoing Assessment - Patient will participate in ongoing dynamic assessment of motor speech, expressive/receptive language, and cognitive-linguistic skills across 1 session to better assess deficits and most appropriately guide DIE ENGRAVER plan of care 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: DIE ENGRAVER - Language Goal: Command Following - Patient [...] communicate wants/needs Outcome: Adequate for Discharge [facility] 10-31-2024 History of Present illness Narrative Care Management Discharge Note Selected Continued Care - Admitted Since 10/27/2024 Home Medical Care Service Provider Selected Services Address Phone Fax Patient Preferred HOME HEALTH SERVICES [facility] Home Health Services, Home Nursing, Home Rehabilitation [address] [place] [address], [address], [facility] [address] [phone] -- Transport Request Mode of Transfer: S Name of Discharge Transport Company: [employer] [facility] ETA: 10/31/24, 10:00AM Patient medically stable for discharge per physician/medical team. Patient/Stock Order Lister remain in agreement with the discharge plan. REBECA Fregoso, PUBLIC WORKS LABORER Power Generation Plant Operator Available by Secure Chat Images from the original note were not included. NEUROVASCULAR STROKE SERVICE Daily Progress Note IDENTIFYING INFORMATION Poonam Veloz MR# [id number] 10/30/2024 HISTORY OF PRESENT ILLNESS Poonam Veloz [...] and reportedly has been doing well with DIE ENGRAVER. No residual weakness per . Was doing [...] findings during her last admission to [facility]. Awaiting brain MRI. 10/30: Speech is subjectively [...] Diagnostics/Procedures: Labs-CBC WBC/Hgb/Hct/Plts: 7.92/11.7/35.8/278 (10/27 2116) Labs-Chem 7([facility]) Bun/Creat/Cl/CO2/Glucose: 21/0.81/103/26/100 (10/27 2116) Na/K+/Phos/Mg/Ca: 137/4.1/--/--/-- (10/27 [...] Of note, the initial consultation note from [facility] seems to suggest patient had a [...] Sertraline 100 mg Oral Daily Acute Care DIE ENGRAVER Speech/Language/Cognitive Evaluation Best mode of Communication: spoken language (regular speech) Discharge Recommendations: Based on the below outcome measures/assessment score(s) and DIE ENGRAVER clinical judgment, discharge destination recommendation is: Inpatient Rehab Facility Barriers to discharge home: Patient needs assistance with IADLs, Patient needs assistance with medication management Acute DIE ENGRAVER Outcomes Tracking Communicate basic wants and needs?: [...] get home to her . Will initiate DIE ENGRAVER treatment per plan of care. Patient Education/Instruction [...] similar to communication that patient had with DIE ENGRAVER team. 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 Vocation: retired Residence: House (One-level home.) Lives With: spouse IADL History IADLs: independent Primary Language: Bhutanese Home Management Skills: independent Medication Management: needs assist Finance Management: needs assist Homemaking Responsibilities: Yes Meal Prep Responsibility: Primary Laundry Responsibility: Primary Cleaning Responsibility: Primary Shopping Responsibility: Primary Active Radiology Equipment Servicer: No Mode of Transportation: Family Occupation: Retired [...] 0 Asthenia (A): 0 Strain (S): 0 DIE ENGRAVER Outcomes: The [place] Aphasia Screening Test (MAST) was developed as [...] Subscale: 32/50 Total Index Score: 57/100 Acute DIE ENGRAVER Goals Plan of Care by CIARA Salinas at 10/30/2024 12:15 PM Version 1 of 1 Problem: DIE ENGRAVER - Cognition Goal: Ongoing Assessment - Patient will participate in ongoing dynamic assessment of motor speech, expressive/receptive language, and cognitive-linguistic skills across 1 session to better assess deficits and most appropriately guide DIE ENGRAVER plan of care Outcome: Ongoing Problem: DIE ENGRAVER - Language Goal: Command Following - Patient [...] of session: none altered Needs in reach. DIE ENGRAVER Evaluation and Treatment Time Speech Eval - Sound Production W/Lang Comp and Exp [id number]: 36 Upon discontinuation of Acute Care Speech [...] clinical decisions and judgements. Kathy Lunsford MS, CCC-DIE ENGRAVER #[id number] Pager# [phone] Can also be reached via [email or web address] secure chat Mon-Fri between [phone] Acute Care Speech-Language Pathology Note Received consult for swallow evaluation. However, pt passed Chapis Swallow Screening by nursing. Swallow eval by DIE ENGRAVER will not be completed at this time unless this service notified of change in status or re-consult for swallow eval placed. DIE ENGRAVER to proceed with speech/language/cognitive evaluation per order. Thank you. No charge Kathy Lunsford MS [facility]-DIE ENGRAVER #[phone] Pager# [phone] Can also be reached via [email or web address] secure chat Mon-Tue between [phone] 10/30/24 1210 Transport Request Mode of Transfer BLS Name of Discharge Transport Company [facility] ETA 10/31/24, 10:00AM This pt [facility] be picked [facility] from [facility] room Q1589-L, going to: Home Opal Madhu CM Origination Specialist [phone] Discharge Planning Assessment Is the patient able [...] speech. Patient is current with Home Health DIE ENGRAVER and Nursing. Through [facility]. Spouse would like to resume services at discharge. CM uploaded referral to [facility] and requested verification of services. [...] Physical Therapy, Occupational Therapy, Outpatient follow up, Custodial, Speech Therapy Patient Assessment Completed: Initial Legal Next of Kin Does the patient have a Guardian?: No Spouse: Yes Name and Contact information: Xavier Veloz [phone] Referral to Social Work to Identify Legal Next of Kin?: No Reviewed and Updated in Demographics? : Yes Advanced Care Planning Medication Management Does the patient have prescription insurance coverage? : Yes Is the patient on Anticoagulation? : Yes Provider or Clinic that manages Anticoagulation?: [facility] Deanna Fung, Room T0354 [facility] [address] Living Environment and Support System Is the patient from a facility or assisted?: No Living Environment: House Patient Caregiving Responsibilities: Self Patient-identified caregiver/support network: Family Who does the patient identify as a teachable caregiver(s)?: Spouse or Partner Services Does the patient use a home health or hospice agency?: Yes - home health Agency Name and Contact : [facility] Current Home Services: Custodial, DIE ENGRAVER Would you like to add additional home [...] themselves at home? : Unable to assess Radiology Physician Assistant Does the patient or telesales representative express financial concerns? 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 Vocation: [...] Overall Sensation: Intact Mobility Assessment: Rolling/Turning Mobility [place] Level: Rolling/Turning: stand-by assist Bed Features/Set-up: Rolling/Turning: Head of bed elevated Skilled Rationale: Positioning, Sequencing, Hand placement, Maintain precautions Skilled Intervention/Details: Rolling/Turning: Did not require use of bed rails Scooting Bridging Mobility [place] Level: Scooting/Bridging: not tested Supine to Sit Mobility [place] Level: Supine->Sit: stand-by assist Bed Features/Set-up: Supine->Sit: Head of bed elevated Skilled Rationale: Positioning, Sequencing, Hand placement, Technique of activity Skilled Intervention/Details: Supine->Sit: Standby assist for safety. Able to perform transfer without use of hosptial bed features. Cues to scoot to the edge of the bed so that feet are on the floor to assist with balance. Sit to Supine Mobility [place] Level: Sit->Supine: not tested Balance: Sitting Balance [...] MELVA. Transfer Assessment: Sit to Stand Transfer [place] Level: Sit->Stand: contact guard assist Assistive Device: Sit->Stand: gait belt Skilled Rationale: Positioning, Sequencing, Hand placement, Technique of activity Skilled Intervention/Details: Sit->Stand: x1 from EOB. Cues to maintain upright posture. Stand to Sit Transfer [place] Level: Stand->Sit: minimum assist (75% patient effort) [...] to chair before attempting transfer. Bed-Chair Transfer [place] Level: Bed<->Chair: not tested Gait/Functional Mobility: Gait Assessment [place] Level: Gait: minimum assist (75% patient effort) [...] due to postural sway. 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 Vocation: [...] noted Mobility Assessment: Supine to Sit Mobility [place] Level: Supine->Sit: stand-by assist Bed Features/Set-up: Supine->Sit: Head of bed elevated, Use of bed rail Skilled Rationale: Cues for increased safety, Technique of activity, Verbal cues Skilled Intervention/Details: Supine->Sit: Cues for safety. Transfer Assessment: Sit to Stand Transfer [place] Level: Sit->Stand: contact guard assist (x 1 trial from EOB.) Assistive Device: Sit->Stand: gait belt Skilled Rationale: Cues for increased safety, Technique of activity, Tactile cues, Verbal cues, Hand placement, Sequencing, Positioning Skilled Intervention/Details: Sit->Stand: Cues for safety/hand placement. Stand to Sit Transfer [place] Level: Stand->Sit: contact guard assist Assistive Device: Stand->Sit: gait belt Skilled Rationale: Cues for increased safety, Technique of activity, Tactile cues, Verbal cues, Hand placement, Sequencing, Positioning Skilled Intervention/Details: Stand->Sit: Pt almost sitting on right arm rest when cued to sit in bedside chair, requiring cues to side-step to the left in order to position self safely. Functional Mobility: Functional Mobility [place] Level: Functional Mobility/Gait: minimum assist (75% patient [...] cueing for environmental navigation/wayfinding. Outcome Score(s): CURRENT [facility] Daily Activity Inpatient Short Form Putting on/Taking Off Lower Body Clothin - A Little Assistance Bathin - A Little Assistance Toiletin - A Little Assistance Putting on/Taking Off Upper Body Clothin - A Little Assistance Groomin - A Little Assistance Eatin - No Assistance CURRENT [facility] Activity Raw Score: 19 CURRENT [facility] Activity Functional Limitation/Modifier: 42.80% Currently Impaired in [...] responded to the stroke alert. Confirmed via OPAL Therapeuticsight the patient was started on the following [...] further questions. Name: José Miguel Garcia Jr., [facility] Phone: [phone] Date/Time: 10/27/2024 9:47 PM documented in this encounter [facility] 10-30-2024 Plan of care note Problem: DIE ENGRAVER - Cognition Goal: Ongoing Assessment - Patient will participate in ongoing dynamic assessment of motor speech, expressive/receptive language, and cognitive-linguistic skills across 1 session to better assess deficits and most appropriately guide DIE ENGRAVER plan of care Outcome: Ongoing Problem: DIE ENGRAVER - Language Goal: Command Following - Patient [...] improved ability to communicate wants/needs Outcome: Ongoing [facility] 10-30-2024 Plan of care note Problem: OT [...] with independence and 100% accuracy. Outcome: Ongoing [facility] 10-30-2024 Plan of care note Problem: PT [...] balance and reduced fall risk. Outcome: Ongoing [facility] 10-30-2024 Hospital Discharge instructions Rosales Martinez MD [...] you at all times. Stroke Education: visit [email or web address] What are the most common symptoms of [...] all ordered medications [] Avoid non-prescription or fpqj-ifa-jrxbtme medication not cleared by your physician [x] [...] may call the neurovascular doctors office at [phone], if you have questions Mon-Fri between 8:30 am and 4:30 pm. - For off hours or the weekend you may call the office or the hospital heater operator at and ask for the stroke resident iron melter to be paged. - If you have any other questions or needs, please call Felicitas ARREOLA, RN, Stroke Nurse Navigator at [phone] Mon-Fri between 7:00am and 3:00pm. - Additional assistance may be found by reaching out to our Case Management Office at [phone]. *In the event of an Emergency: If you have a physical or psychiatric emergency call 911 or go to your local emergency department. You should also call your outpatient provider's emergency number. Other reference numbers: [facility] Intake Office at [phone]; [facility] at [phone]; or Suicide Prevention Hotline at 200-089-5390. *Helpful phone numbers: Free Crisis Hotline: 3-874-017-TALK ( ) Suicide Hotline: 787.568.6668 Seniors Suicide Hotline: 137.104.7228 [facility] Youth: 840.951.7684 Mental Health of [place]: [phone] (free counseling) [facility] Access Hotline: 044-665-GCIW (595-814-1942) 24-hour crisis text hotline: Text the word 4hope to 240-996 for crisis support. Texting this number is [...] you may qualify for Medicaid/public assistance: The [facility] Department of Job and Family Services can now process pepe (TANF), food (SNAP) and Medicaid Applications over the phone. Please call 3-295-877-[place] ([phone]) and apply over the phone or apply online at www.benefits.[place].gov. Tuesday-Tuesday 8am-12pm noon. Medication Assistance Programs [employer] Savings Club members can buy 100+ common prescriptions for FREE, $3 or $6. Annual membership is $36 for individuals and $72 for families (up to 6 people, including pets). Sign up online or enroll at your nearest pharmacy! [employer] web site can provide a significant number of coupons for medications at a much lower august. [place] Department of Aging The Department of Aging administers programs and services to meet the needs of older [place]. Services and resources offered per [facility] may include transportation, housekeeping, meals and nutrition, personal care, case management, safety monitoring, home medical equipment, legal services, student financial services counselor, health and wellness, education, caregiver support, respite care, etc. Call to be connected to the [facility] agency on aging serving your community or visit [place].gov/find-services. Request a consultation with a community resource expert at ltssi.age.[place].gov/ [facility] Stroke Support The [facility] Stroke Support Group is for stroke survivors, friends, and family members. Meets on the Tuesday of each month from 6:30pm-7:30pm at [facility] ([address]; [place] [address]). Contact Simona Trevino, at [phone] or [email or web address]. If you are outside of the [facility], contact The [place] [employer] Stroke Association at www.stroke.org or 3-316-3-STROKE or for support groups in your area. You may also refer to the Your Care after a Stroke education booklet at [email or web address] for additional resources. [facility] Resources Therapy Options in Your [facility] ([facility]) PT/OT/ST/Certified Hand Therapy [address] [facility] [address] [facility] PT/Hand/Vestibular Therapy [address] [place] [address] [facility] PT/OT [address] [facility] [phone] [facility] PT Only [address], [place] [phone] [facility] Only [address], [place] [phone] Medical Equipment Suppliers [employer] [address] [place] [address] [facility] [address] [facility] [address] [employer] Visit [facility].org/services/healt d-hlgcussf-tgrerdlayty/[employer] -appbackr/ or call [phone] DME for [facility] Population [address] [place] [address] Xavier Herrmannler: [phone] Local Support Direction [place] Agency on Aging [address] [place] [address] [facility] Liaison: Meera Mendez LPN [phone] [facility] Transitional Care Program, Meals, etc [phone] Extracorporeal Technician [phone] [facility] Van Transportation [phone] [facility] Stroke Support Group Virtual Meeting [phone] [email or web address] [place] Strokes Support Group [address] [address] Felicitas Baez RN - 10/31/2024 9:24 AM EST Images from the original note were not included. You have been placed on a mobile cardiac telemetry device to monitor your heart rhythm for the next thirty days. Detailed and illustrated instructions may be found within the included box and instructional videos are available on the [employer] smartphone (tap Help & Settings ? Videos). Here are a few martell points: Please charge the Ne[employer] smartphone every night. Change the strip when it no longer adheres to the skin, in about one week. Charge the monitor for 1.5-2.5hr at this time, re-attaching it on the chest once fully charged. The [place] in the middle of the monitor turns the device on and may be pressed if you are experiencing any cardiac symptoms (shortness of breath, palpitations, etc.). If the [employer] smartphone is within ten feet of you, it is transmitting data in real time.The monitor is always recording as long as it has battery and is on you. At the end of thirty days (Saturday November 30, 2024), place everything back into the box (phone, rail car welder, monitors) and drop it off at UPS or call [phone] to arrange for pick-up. For troubleshooting, supplies replenishment, or device-related concerns please call [facility] at [phone] (press 1, 1) available 25/04 - or - email: [email or web address] Thank you, YOSHI StephensonN, RN Stroke Nurse Navigator [facility] Stroke [place] [phone] Office [email or web address] documented in this encounter [facility] 10-30-2024 Consult note Formatting of th is [...] post insertion. Extra insertion Note if applicable: [facility] 10-30-2024 Consult note Formatting of th is [...] Note if applicable: documented in this encounter [facility] 10-29-2024 Nurse Note On admission to B10E, from ED a dual RN initial assessment of skin condition was performed by Mary Grace Villanueva RN and CAROLYN Ackerman Skin Assessment: Skin not within defined limits. - Wound(s) identified: Yes Nicholas Score: 16 LDA Added:Yes Mary Grace Kay, RN [facility] 10-29-2024 Emergency department Note Poonam Veloz fell [...] safety and use of call light: Yes [facility] 10-29-2024 Emergency department Note Poonam Veloz fell [...] Disposition: Admit This note was dictated using [employer]-Dynamic [employer] Light Dictation Software. Attempts at proofreading have been made, however errors may still occasionally occur. Demarco Mei II, MD Resident 10/27/246 I saw and independently examined the patient. [...] AND W/ETA. documented in this encounter [facility] 10-29-2024 Emergency department Note Paged neurovasc to review patient orders and clarify. [facility] 10-28-2024 Emergency department Note Bed: E053 Expected date: Expected time: Means of arrival: Comments: [facility] 10-28-2024 Emergency department Note Bed: E036 Expected date: Expected time: Means of arrival: Comments: [facility] 10-27-2024 Physician Emergency department Note Images from [...] Disposition: Admit This note was dictated using M-Dynamic Organic Light Dictation Software. Attempts at proofreading have been made, however errors may still occasionally occur. Demarco Mei II, MD Resident 10/27/[address] [facility] Work Phone: 10-27-2024 Note Acute Coronary Syndr ome (ACS): Initial Evaluation and Management: [email or web address] [email or web address].[email or web address] [facility] 10-27-2024 Physician Emergency department Note I saw [...] Decision regarding hospitalization. Rosales Zelaya MD 10/27/242140 [facility] Work Phone: 10-27-2024 Emergency department Note Pt had vtach on monitor when being transported from [place] to room 35. Pt awake during and asymptomatic and without reaction. Pt then had R on T. MD Bustos notified. [facility] 10-27-2024 Emergency department Note Pt arrived via [...] 9-10. [facility] per neurology on arrival 7. [facility] 10-27-2024 Emergency department Note Bed: E035 Expected date: 10/27/24 Expected time: 12:00 AM Means of arrival: Comments: [facility] 10-27-2024 Emergency department Note STAT LINE - [...] CALL IF NEED HELP W/TRANSPORT AND W/ETA. [facility] 07-30-2024 Nurse Note Report given to , that pt left the unit with the transportation. she has her medications, KELLY and AVS. Fax AVS and kelly to [facility] PIV removed, catheter intact. Cotton ball placed [...] changes. All patient belongings sent with patient. [facility] 07-30-2024 Miscellaneous Notes Report given to , that pt left the unit with the transportation. she has her medications, KELLY and AVS. Fax AVS and kelly to [facility] PIV removed, catheter intact. Cotton ball placed [...] to monitor and assess. Report given to [facility]. 07/30/24 1129 Final Discharge Planning Discharge Disposition Home with Home Health Services at Discharge Physical Therapy;Occupational Therapy;Speech Therapy;Custodial Community Agency Name(s) For Handoff Home Health Services [facility] Name For Handoff Intake Phone For Handoff [phone] p Fax For Handoff [phone] f Problem: OT - ADLs Goal: Grooming [...] were you homeless or living in a fdc (including now)? N Utilities In the past 12 months has the [employer], gas, oil, or water [employer] threatened to shut off services in your [...] spouse, Xavier Veloz. MAXWELL Torres, RN Clinical Mechanical Maintenance Phoned Xavier Veloz, spouse at [phone] and identified self as the CM. Patient was admitted on 07/27/24 for a stroke. She has word finding difficulty. Patient has Medicare [facility] insurance with Rx coverage. PCP is Dr. [...] brought [facility] from [facility]. He is currently ill with cancer and receiving Chemo treatments and unable to physically drive to [place]. Discussed that PT has recommended SNF. He is agreeable to the SNF if it is at the [facility]. If the patient is to come home he would like nursing care from [facility]. The patient is currently receiving out patient speech therapy at [facility], which is where he would like all of the out patient therapies. The location is one mile from their home. Mr. Veloz expressed that his greatest concern is getting his transported home since he cannot drive to [place] to bring her home. Discussed that ambulance or ambulette transport should be possible. Reviewed that referrals will be made for the rehab at [facility] and [facility]. The CM will contact him to discuss discharge plans. Contact information for the weekday CM was provided per his request. 07/29/24 7603 Patient Assessment Completed Patient Assessment Completed Initial Initial Discharge Planning Expected Discharge Disposition SNF Transportation Available for Discharge Ambulance;Wheelchair Van Anticipated DME none Anticipated Services at Discharge Speech Therapy;Custodial;Physical Therapy;Occupational Therapy Admission Assessment Reason for Admission [...] Is the patient from a facility or assisted? No Patient lives with Spouse or Partner [...] Yes Is the patient on Anticoagulation? Yes Radiology Physician Assistant Does the patient or telesales representative express financial concerns? No Employed? Retired Coping/Stress Concerns about patient s coping and stress? Unable to Assess Concerns about patient s caregiver s coping and stress? No Values and Beliefs Cultural or scientology practices that may impact discharge planning and/or medical care? Yes MAXWELL Torres, RN Clinical Mechanical Maintenance Problem: Pain Acute Goal: Optimal Pain Control [...] need for dysphagia services Outcome: Met Problem: DIE ENGRAVER - Cognition Goal: Memory: Hospital Facts - Patient will utilize preferred compensatory memory strategies with moderate cues to teach back at least 2 facts related to their hospitalization/plan of care across a 3 min delay to support generalization of strategy use Outcome: Progressing Problem: DIE ENGRAVER - Language Goal: Name Basic Objects/Pictures - [...] fall pt bed alarm did sound and TRENCH DIGGER Rishil responded immediately as this RN was at the nurses station and had just taken a call from pt and watched the TRENCH DIGGER respond as soon as the light came on. Bed alarm was connected to call light system at the time. TRENCH DIGGER walked past the nurses station, and this RN had asked TRENCH DIGGER if he was still helping 360. Pt states he was getting pt a spoon. This RN asked information architect to relay a message to pt since [...] on edge of bed at the time TRENCH DIGGER left room. This is the same report [...] Ongoing Patient is transported on bed to [place]. Report received from CAROLYN soliman. Patient on therapist rrt, is NSR. Alert and oriented.ticket to ride [...] Added:No Kulwinder Garcia RN Patient transported from [place] to on tele and pulse ox. Report [...] night when sleeping (not officially diagnosed at [facility]) - he will take her feet and [...] po daily documented in this encounter [facility] 07-30-2024 History of Present illness Narrative Images from the original note were not included. [facility] Note: Non-Verbal Med Rec [facility] received the following discharge prescription(s): Total cost is $0.00. I have reviewed the Discharge Rx Reconciliation Report. The discharge prescription(s) will be delivered to the patient on 07/30/2024. Debora Lozano RPh,PharmD Specialty ([place]) [phone] [facility] [phone] [facility] Bedside Delivery [phone] [facility] [phone] [facility] Bedside Delivery [phone] [place] [phone] [facility] Bedside Delivery [phone] [place] [phone] [place] [phone] Acute Occupational Therapy Treatment Prior Gross Functional [...] walker Mobility Assessment/Intervention: Supine to Sit Mobility [place] Level: Supine->Sit: stand-by assist Bed Features/Set-up: Supine->Sit: Head of bed elevated, Use of bed rail Skilled Rationale: Positioning, Sequencing, Verbal cues, Finding/maintaining midline positioning, Technique of activity, Initiation and execution of task, Cues for increased safety Skilled Intervention/Details: Supine->Sit: VC for initiation and body position EOB Sit to Supine Mobility [place] Level: Sit->Supine: not tested Skilled Intervention/Details: Sit->Supine: Pt sitting in chair at end of session; RN aware Transfer Assessment/Intervention: Sit to Stand Transfer [place] Level: Sit->Stand: stand-by assist Skilled Rationale: Positioning, Sequencing, Hand placement, Verbal cues, Finding/maintaining midline positioning, Technique of activity, Initiation and execution of task, Cues for increased safety Skilled Intervention/Details: Sit->Stand: x2 from EOB with no UE support. VC for initiation Stand to Sit Transfer [place] Level: Stand->Sit: stand-by assist Assistive Device: Stand->Sit: [...] back method to control descent Bed-Chair Transfer [place] Level: Bed<->Chair: contact guard assist Assistive Device: Bed<->Chair: (BSC) Skilled Rationale: Positioning, Sequencing, Hand placement, Verbal cues, Controlled descent for sitting, Technique of activity, Initiation and execution of task, Cues for increased safety Skilled Intervention/Details: Bed<->Chair: x1 SPT EOB>BSC. VC for sequencing and technique. CGA for safety and line management Toilet Transfer [place] Level: Toilet: contact guard assist Assistive Device: Toilet: 2 wheeled walker, bedside commode Skilled Rationale: Positioning, Sequencing, Hand placement, Verbal cues, Controlled descent for sitting, Technique of activity, Initiation and execution of task, Cues for increased safety Skilled Intervention/Details: Toilet: x1 on/off BSC. VC for use of toilet frame to assist transfer Functional Mobility: Functional Mobility [place] Level: Functional Mobility/Gait: (SBA-CGA) Assistive Device: Functional Mobility/Gait: 2 wheeled walker Functional Mobility Distance: Distance needed for common household mobility Outcome Score(s): CURRENT [facility] Daily Activity Inpatient Short Form Putting on/Taking Off Lower Body Clothin - A Lot of Assistance Bathin - A Lot of Assistance Toiletin - A Little Assistance Putting on/Taking Off Upper Body Clothin - A Lot of Assistance Groomin - A Little Assistance Eatin - A Little Assistance CURRENT [facility] Activity Raw Score: 15 CURRENT [facility] Activity Functional Limitation/Modifier: 56.46% Currently Impaired in [...] walker Mobility Assessment/Intervention: Supine to Sit Mobility [place] Level: Supine->Sit: stand-by assist Bed Features/Set-up: Supine->Sit: Head of bed elevated, Use of bed rail Skilled Rationale: Verbal cues, Positioning, Sequencing, Technique of activity, Cues for increased safety, Initiation and execution of task Skilled Intervention/Details: Supine->Sit: Cues for initiation of transition. Sit to Supine Mobility [place] Level: Sit->Supine: not tested Skilled Intervention/Details: Sit->Supine: Pt seated in armed chair at end of session. Transfer Assessment/Intervention: Sit to Stand Transfer [place] Level: Sit->Stand: stand-by assist Assistive Device: Sit->Stand: 2 wheeled walker, other (see comments) (no AD) Skilled Rationale: Verbal cues, Positioning, Sequencing, Hand placement, Technique of activity, Initiation and execution of task, Cues for increased safety Skilled Intervention/Details: Sit->Stand: Performed 2x from EOB, 1x from BSC with SBA. Stand to Sit Transfer [place] Level: Stand->Sit: contact guard assist Assistive Device: [...] this date. Gait/Functional Mobility Assessment/Intervention: Gait Assessment [place] Level: Gait: other (see comments) (CGA - [...] a railin - A Little Assistance CURRENT [facility] Mobility Raw Score: 18 CURRENT [facility] Mobility Functional Limitation: 46.58% Impaired in Basic [...] 1pm with Tao Brody Asiya Care Management Origination Specialist [facility] received a call from patient spouse regarding DC planning and wishes for patient to discharge home with [facility] only. Spouse stated patient would not be agreeable to any facility and wishes to DC home with [facility]. Patient accepted Home Health services [facility] Transportation Set for 1pm. Phone call to make Spouse aware, no answer. Will make patient aware. Will continue to follow. Sw met with pt during rounding. Sw updated pt that the I[facility] she chose does not have any beds. Sw offered to make referrals in [place]. Pt declined, stating that if she cannot dc to the IPR of choice, she prefers to return home. (SW canceled started [facility] referral) CM notified to request HHC. Transport will need to be arranged. REBECA Kaplan, PUBLIC WORKS LABORER Buffing Wheel Raker [facility] Aidin referrals were made to [facility] and [facility] per Mr. Veloz's request. Once he has spoken to the physician he will decide which discharge services would be best for his . MAXWELL Torres, RN Clinical Mechanical Maintenance Physical Therapy Attempt Note 07/29/2024 PT Therapy [...] HLD, who presents as a transfer from [facility] for AMS and poss seizure activity [...] comprehension intact; CRANIAL NERVES CN II: PERRL. airplane flight attendant supervisor III, IV and : extraocular movements intact. [...] HLD, who presents as a transfer from [facility] for AMS and poss seizure activity [...] the neurology consultation resident. Benji Worrell MD [facility] Department of Neurology Patient seen and staffed [...] BID with neuro follow-up. Lauren Brar MD Dental Laboratory Manager, Neurology Neuromuscular Division Hospital Medicine Progress Note [...] using her right hand prompting presentation to [facility] ER as a code stroke. There, symptoms [...] recorded, clinical correlation recommended. Matty Kaminski MD Dental Laboratory Manager, Department of Neurology, Epilepsy Section [facility] Acute Care DIE ENGRAVER Speech/Language/Cognitive and Swallow Evaluations Diet recommendation: Recommended Method of Nutrition: PO Recommended Diet Grade: regular Recommended Liquid Consistency: liquid- thin (IDDSI 0) Recommended Medication Administration (as appropriate per MD): Per patient preference Type of Cues/Supervision: none Assistance: independent, speech, family, nurse/aide Best mode of Communication: spoken language Communication Strategies: extended time Discharge Recommendations: Based on the below outcome measures/assessment score(s), MOCA, , and DIE ENGRAVER clinical judgment, discharge destination recommendation is: Home with Outpatient Rehab Services Supporting factors for discharge setting: Impaired cognitive skills limiting independence Chart review and discussion w/RN complete prior to DIE ENGRAVER services. Acute DIE ENGRAVER Outcomes Tracking Communicate basic wants and needs?: [...] in function. Recommend regular with thin liquids. DIE ENGRAVER will sign off. Clinical Speech/Language/Cognitive Impression: Poonam [...] yes/no questions without difficulty. Patient agreeable to DIE ENGRAVER follow- up for ongoing evaluation and strategies for cognitive -communication limitations. Recommend DIE ENGRAVER establish communication baseline and appropriate targets for [...] Instruction/Education comments: Patient educated on role of DIE ENGRAVER and BSE rationale Plan for next session: Plan to discharge from dysphagia DIE ENGRAVER services. Plan to follow up for ongoing cognitvie evaluation and to provide communication strtaegies and resources Subjective information: Patient recieved sleeping comfortably and easily arouse. Patient pleasant toward clincian but hesitant to particpate in assessments. Pt agreeable to PO trials following explanation of DIE ENGRAVER role and later explained decreased PO intake [...] spouse IADL History IADLs: independent Primary Language: Bhutanese Prior DIE ENGRAVER history: Patient was receiving ongoing outpatient speech therapy and presented from speech therapy session for possible CVA this hospitalization. Per patient, word- finding was targeted in speech therapy but has become significantly worse during this acute event. Further DIE ENGRAVER history details unavailable via chart review. Current [...] and Liquids Trialed: Modality: Amount: Regular solid DIE ENGRAVER-fed 2 cracker pieces Thin Cup 8x Oral Phase Function Comments Oral Mucosa Intact Dentition Labial Closure Intact Mastication Intact Oral Stasis Absent Cough before the swallow Absent Oral Phase Summary: appears intact Pharyngeal Phase Function Comments Perceived Swallow Present Cough Response No Throat Clear No Subjective Complaint of Residue Absent Pharyngeal Phase Summary: no overt signs/symptoms of penetration/aspiration [place] Swallow Screen: (administered by: CAROLYN) [place] Swallow Screening Screening Exclusion Criteria: none, continue with [place] Swallow Screening Cognitive Screen: Orientation: able to [...] Phonation Pitch Control Loudness Vocal Quality WDL DIE ENGRAVER Outcomes: The [place] Cognitive Assessment (MOCA), Version 8.1 was partially administered to achieve a standardized score of cognitive-linguistic function. The following scores were obtained: Due to patient participation, MOCA was not completed in full this date. Subtest scores: /5 Namin/3 Attention: /6 Language: / Delayed Recall: 0 / Acute DIE ENGRAVER Goals Plan of Care by CIARA Moragn at 07/28/2024 4:07 PM Version 1 of 1 Problem: Dysphagia Goal: Ongoing Assessment - Patient will participate in assessment by accepting various PO consistency trials with appropriate participation/oral acceptance and no significant respiratory complications to determine need for dysphagia services Outcome: Met Problem: DIE ENGRAVER - Cognition Goal: Memory: Hospital Facts - Patient will utilize preferred compensatory memory strategies with moderate cues to teach back at least 2 facts related to their hospitalization/plan of care across a 3 min delay to support generalization of strategy use Outcome: Progressing Problem: DIE ENGRAVER - Language Goal: Name Basic Objects/Pictures - [...] head of bed elevated Needs in reach. DIE ENGRAVER Evaluation and Treatment Time Speech Eval - Sound Production W/Lang Comp and Exp 18604: 10 Swallowing Eval 86362: 10 Upon discontinuation of Acute Care Speech Therapy Services or patient discharge from the hospital this note represents the current Speech Therapy Discharge Summary [facility] Medicine Progress Note Patient: Poonam [...] needs IADL History IADLs: independent Primary Language: Bhutanese Objective/Observation: Vitals/Vitals Responses to Treatment: Pt experienced [...] arrange. Toilet Assistance: Maximal Extremity Assessments: Hand Loader Demolder Strength Right Loader Demolder Strength (lbs): poor Left Loader Demolder Strength (lbs): fair RUE Assessment RUE Assessment: [...] safety Mobility Assessment: Supine to Sit Mobility [place] Level: Supine->Sit: minimum assist (75% patient effort) Bed Features/Set-up: Supine->Sit: Head of bed elevated, Use of bed rail Skilled Rationale: Verbal cues, Sequencing, Cues for increased safety, Technique of activity Skilled Intervention/Details: Supine->Sit: increased time, assist with trunk Sit to Supine Mobility [place] Level: Sit->Supine: minimum assist (75% patient effort) Bed Features/Set-up: Sit->Supine: Flat Skilled Rationale: Verbal cues, Sequencing, Cues for increased safety, Technique of activity Skilled Intervention/Details: Sit->Supine: assist BLE into supine Transfer Assessment: Sit to Stand Transfer [place] Level: Sit->Stand: minimum assist (75% patient effort) Physical Assist: Sit->Stand: 2 person assist Assistive Device: Sit->Stand: 2 wheeled walker Skilled Rationale: Verbal cues, Sequencing, Cues for increased safety, Technique of activity, Hand placement Stand to Sit Transfer [place] Level: Stand->Sit: minimum assist (75% patient effort) Physical Assist: Stand->Sit: 2 person assist Assistive Device: Stand->Sit: 2 wheeled walker Skilled Rationale: Verbal cues, Sequencing, Cues for increased safety, Technique of activity, Hand placement, Controlled descent for sitting Functional Mobility: Functional Mobility [place] Level: Functional Mobility/Gait: minimum assist (75% patient [...] experienced LOB ~3 times. Outcome Score(s): CURRENT [facility] Daily Activity Inpatient Short Form Putting on/Taking Off Lower Body Clothin - A Lot of Assistance Bathin - A Lot of Assistance Toiletin - A Lot of Assistance Putting on/Taking Off Upper Body Clothin - A Lot of Assistance Groomin - A Little Assistance Eatin - A Little Assistance CURRENT [facility] Activity Raw Score: 14 CURRENT [facility] Activity Functional Limitation/Modifier: 59.67% Currently Impaired in [...] presented to the ED from her outpatient DIE ENGRAVER appointment due to RUE weakness. pt transferred from outside hospital to [facility]. CT and MRI negative for CVA [...] Plan for next session: toileting as able, [facility] Acute OT Goals Plan of Care by [...] Entry: 10 Evaluating Therapist: DESTINEY Rose, OTR/L #[id number] Additional Details: OT Co-Eval/Treatment Information Co-evaluation/co-treatment performed?: [...] Limits Mobility Assessment: Supine to Sit Mobility [place] Level: Supine->Sit: minimum assist (75% patient effort) Bed Features/Set-up: Supine->Sit: Head of bed elevated, Use of bed rail Skilled Rationale: Verbal cues, Tactile cues, Positioning, Sequencing, Hand placement, Technique of activity, Initiation and execution of task, Cues for increased safety Skilled Intervention/Details: Supine->Sit: Pt Adan to assist with trunk righting. Sit to Supine Mobility [place] Level: Sit->Supine: minimum assist (75% patient effort) [...] walker Transfer Assessment: Sit to Stand Transfer [place] Level: Sit->Stand: minimum assist (75% patient effort) Physical Assist: Sit->Stand: 2 person assist Assistive Device: Sit->Stand: 2 wheeled walker Skilled Rationale: Verbal cues, Tactile cues, Positioning, Sequencing, Hand placement, Technique of activity, Initiation and execution of task, Cues for increased safety Skilled Intervention/Details: Sit->Stand: Performed 1x from EOB with Adan x2. Stand to Sit Transfer [place] Level: Stand->Sit: minimum assist (75% patient effort) [...] control this date. Gait/Functional Mobility: Gait Assessment [place] Level: Gait: minimum assist (75% patient effort) [...] proprioception of entire RLE. Outcome Score(s): CURRENT [facility] Basic Mobility Inpatient Short Form Turning over [...] railin - A Lot of Assistance CURRENT [facility] Mobility Raw Score: 14 CURRENT [facility] Mobility Functional Limitation: 61.29% Impaired in Basic [...] Facility Transfer Note Patient: Poonam Veloz Room/Bed: [facility] Patient has transferred from the Emergency Department at [facility] . I have contacted the facility and confirmed the following antimicrobial, antiepileptic, and anticoagulant medications were received by the patient prior to arrival at [facility]: Antimicrobials: none Antiepileptics: lorazepam 2 mg IV @ 1745 on 07/27 lorazepam 1 mg PO @ 1619 on 07/27 unclear if 3800 mg of keppra IV was given with transport Anticoagulants: none Please feel free to contact me with any further questions. Name: Dae Lynn RPH Phone #: [phone] Date/Time: 07/27/2024 8:38 PM documented in this encounter [facility] 07-30-2024 Nurse Note Assessment remains unchanged. Vitals are stable. Pt denies pain at this time. Will continue to monitor and assess. [facility] 07-30-2024 Nurse Note Report given to [facility]. [facility] 07-30-2024 Nurse Note 07/30/24 1129 Final Discharge Planning Discharge Disposition Home with Home Health Services at Discharge Physical Therapy;Occupational Therapy;Speech Therapy;Custodial Community Agency Name(s) For Handoff Home Health Services [facility] Name For Handoff Intake Phone For Handoff [phone] p Fax For Handoff [phone] f [facility] 07-30-2024 Plan of care note Problem: OT [...] single commands during ADL task. Outcome: Progressing [facility] 07-30-2024 Plan of care note Problem: PT [...] navigate home and community. Outcome: Progressing [facility] 07-30-2024 Hospital course Narrative Discharge Summary [...] 35 minutes documented in this encounter [facility] 07-30-2024 Hospital Discharge instructions Hanny Valentino RN - 07/30/2024 8:18 AM EDT Patient Experience Survey Reminder You may receive a survey in the mail within a few weeks regarding your hospitalization. This helps us to improve the care and services we provide at [facility]. We truly appreciate you taking the time to fill this out. We particularly welcome any specific comments you may have (good or bad!) regarding your experience at [facility] so that we may use them to continue to strive towards excellence for our patients. documented in this encounter [facility] 07-30-2024 Plan of care note Problem: [...] Goal: Effective Urinary Elimination Outcome: Progressing [facility] 07-30-2024 Nurse Note Pt resting quietly in bed with call light in reach and bed exit armed. Assessment unchanged since previous assessment except as documented. No s/s of distress noted, pt denies any other needs at this time. Room/Environment checked for safety. [facility] 07-30-2024 Nurse Note Pt resting quietly in bed with call light in reach and bed exit armed. Assessment unchanged since previous assessment except as documented. No s/s of distress noted, pt denies any other needs at this time. Room/Environment checked for safety. [facility] 07-29-2024 Procedure note Associated Ord er(s): GENERAL [...] recorded, clinical correlation recommended. Matty Kaminski MD Dental Laboratory Manager, Department of Neurology, Epilepsy Section [facility] Procedure note Associated Ord er(s): [...] recorded, clinical correlation recommended. Matty Kaminski MD Dental Laboratory Manager, Department of Neurology, Epilepsy Section [facility] documented in this encounter [facility] 07-29-2024 Nurse Note Reassessment done. Denies pain or discomfort. Patient is off the EEG. Call light is within reach. [facility] 07-29-2024 Nurse Note 07/29/24 1440 Transportation Needs [...] were you homeless or living in a fdc (including now)? N Utilities In the past 12 months has the electric, gas, oil, or water [email or web address] threatened to shut off services in your [...] spouse, Xavier Veloz. MAXWELL Torres, RN Clinical Mechanical Maintenance [facility] 07-29-2024 Nurse Note Phoned Xavier Veloz, spouse at [phone] and identified self as the CM. Patient was admitted on 07/27/24 for a stroke. She has word finding difficulty. Patient has Medicare [facility] insurance with Rx coverage. PCP is Dr. [...] brought to [facility] per [facility] from [facility]. He is currently ill with cancer and receiving Chemo treatments and unable to physically drive to [place]. Discussed that PT has recommended SNF. He is agreeable to the SNF if it is at the [facility]. If the patient is to come home he would like nursing care from [facility]. The patient is currently receiving out patient speech therapy at [facility], which is where he would like all of the out patient therapies. The location is one mile from their home. Mr. Veloz expressed that his greatest concern is getting his transported home since he cannot drive to [place] to bring her home. Discussed that ambulance or ambulette transport should be possible. Reviewed that referrals will be made for the rehab at [facility] and [facility]. The CM will contact him to discuss discharge plans. Contact information for the weekday CM was provided per his request. 07/29/24 1433 Patient Assessment Completed Patient Assessment Completed Initial Initial Discharge Planning Expected Discharge Disposition SNF Transportation Available for Discharge Ambulance;Wheelchair Van Anticipated DME none Anticipated Services at Discharge Speech Therapy;Custodial;Physical Therapy;Occupational Therapy Admission Assessment Reason for Admission [...] Is the patient from a facility or assisted? No Patient lives with Spouse or Partner [...] Yes Is the patient on Anticoagulation? Yes Radiology Physician Assistant Does the patient or telesales representative express financial concerns? No Employed? Retired Coping/Stress Concerns about patient s coping and stress? Unable to Assess Concerns about patient s caregiver s coping and stress? No Values and Beliefs Cultural or scientology practices that may impact discharge planning and/or medical care? Yes MAXWELL Torres, RN Clinical Mechanical Maintenance [facility] 07-29-2024 Plan of care note Problem: Pain Acute Goal: Optimal Pain Control and Function Outcome: Progressing Intervention: Prevent or Manage Pain Flowsheets (Taken 07/29/2024 1541) Bowel Elimination Promotion: privacy promoted Medication Review/Management: medications reviewed [facility] 07-29-2024 Nurse Note Reassessment done. Patient denies pain or discomfort. Able to turn and reposition self. Call light is within reach. No seizure activity noted at this time. Plan of care continues. [facility] 07-29-2024 Plan of care note Problem: Swallowing Impairment Goal: Optimal Eating/Swallowing without Aspiration Outcome: Progressing Problem: Fall Injury Risk Goal: Fall/Trauma/Injury Risk: Absence of Trauma/Injury/Falls Description: Patient will demonstrate the desired outcomes. Outcome: Progressing Goal: Knowledge of risk factors/behavior modification Description: Knowledge of risk factors/behavior modification for fall/injury prevention Outcome: Progressing [facility] 07-28-2024 Nurse Note Assessment completed without changes to previous except as documented. Pt more awake and alert w/ modified NIH of 1. Safety rounds completed with pt in bed and call light within reach. Bed exit alarm set. [facility] Plan of care note Problem: Dysphagia Goal: Ongoing Assessment - Patient will participate in assessment by accepting various PO consistency trials with appropriate participation/oral acceptance and no significant respiratory complications to determine need for dysphagia services Outcome: Met Problem: DIE ENGRAVER - Cognition Goal: Memory: Hospital Facts - Patient will utilize preferred compensatory memory strategies with moderate cues to teach back at least 2 facts related to their hospitalization/plan of care across a 3 min delay to support generalization of strategy use Outcome: Progressing Problem: DIE ENGRAVER - Language Goal: Name Basic Objects/Pictures - Patient will name basic objects/pictures with 80% accuracy, with maximum cues in order to improve word-finding and functional communication Outcome: Progressing [facility] 07[facility]24 Consult note Associated Order (s): IP CONSULT TO NEUROVASCULAR NEUROLOGY CONSULTATION NOTE Reason for consultation: AMS, possible seizure like activity History of present illness: Poonam Veloz is a 83 y.o. female with history of L MCA inferior division ischemic stroke, HTN, HLD, who presents as a transfer from [facility] for AMS and poss seizure activity [...] to hold things. He also mentions about intermediate accountant issue of moving her legs and snoring while sleeping. He has spoken to her today afternoon and felt she is almost back to baseline except that she did not remember being in helicopter and thought she was in [facility]. Pt states she does not feel the [...] defect. . PERRL. Normal conjunctivae and lids. airplane flight attendant supervisor III, IV and : extraocular movements intact. [...] throughout Pin prick Temperature Vibration Proprioception Coordination: Aihxln-rm-kcul intact bilaterally. Stroke Assessment: 07/28/2024 Diagnostic Data Laboratory data: Labs-CBC WBC/Hgb/Hct/Plts: 9.92/11.1/33.8/318 (07/28 16) Labs-Chem 7([facility]) Bun/Creat/Cl/CO2/Glucose: 15/0.70/104/24/104 (07/28 16) Na/K+/Phos/Mg/Ca: 137/4.3/3.2/2.1/9.2 (07/28 [...] further questions, please contact Neurology Team at [facility]. Patient and plan discussed with Dr. Brar. ARLINE Winchester Neurology PGY-4 Pager: [phone] 07/28/24 12:35 PM Associated attestation - Lauren [...] BID - continuous EEG Lauren Brar MD Dental Laboratory Manager, Neurology Neuromuscular Division [facility] Work Phone: 07-28-2024 Consult note Associated Order (s): IP CONSULT TO NEUROVASCULAR NEUROLOGY CONSULTATION NOTE Reason for consultation: AMS, possible seizure like activity History of present illness: Poonam Veloz is a 83 y.o. female with history of L MCA inferior division ischemic stroke, HTN, HLD, who presents as a transfer from [facility] for AMS and poss seizure activity [...] to hold things. He also mentions about intermediate accountant issue of moving her legs and snoring while sleeping. He has spoken to her today afternoon and felt she is almost back to baseline except that she did not remember being in helicopter and thought she was in [facility]. Pt states she does not feel the [...] defect. . PERRL. Normal conjunctivae and lids. airplane flight attendant supervisor III, IV and : extraocular movements intact. [...] throughout Pin prick Temperature Vibration Proprioception Coordination: Bpqezb-ti-abbt intact bilaterally. Stroke Assessment: 07/28/2024 Diagnostic Data Laboratory data: Labs-CBC WBC/Hgb/Hct/Plts: 9.92/11.1/33.8/318 (07/28 16) Labs-Chem 7([facility]) Bun/Creat/Cl/CO2/Glucose: 15/0.70/104/24/104 (07/28 16) Na/K+/Phos/Mg/Ca: 137/4.3/3.2/2.1/9.2 (07/28 [...] further questions, please contact Neurology Team at [facility]. Patient and plan discussed with Dr. Brar. ARLINE Winchester Neurology PGY-4 Pager: [phone] 07/28/24 12:35 PM Associated attestation - Lauren [...] BID - continuous EEG Lauren Brar MD Dental Laboratory Manager, Neurology Neuromuscular Division documented in this encounter [facility] 07-28-2024 Nurse Note Post fall huddle [...] fall pt bed alarm did sound and TRENCH DIGGER Rishil responded immediately as this RN was at the nurses station and had just taken a call from pt and watched the TRENCH DIGGER respond as soon as the light came on. Bed alarm was connected to call light system at the time. TRENCH DIGGER walked past the nurses station, and this RN had asked TRENCH DIGGER if he was still helping 360. Pt states he was getting pt a spoon. This RN asked information architect to relay a message to pt since [...] on edge of bed at the time TRENCH DIGGER left room. This is the same report [...] pt not to get up without help. [facility] 07-28-2024 Plan of care note Problem: OT [...] single commands during ADL task. Outcome: Progressing [facility] 07-28-2024 Plan of care note Problem: PT [...] safely navigate home and community. Outcome: Ongoing [facility] 07-28-2024 Nurse Note Patient is transported on bed to [place]. Report received from CAROLYN soliman. Patient on therapist rrt, is NSR. Alert and oriented.ticket to ride is with patient. Pt completed test with no complaints. Transported back to room. CAROLYN Soliman notified [facility] 07-28-2024 Nurse Note [place] Swallow put on hold due to pt being drowsy and lethargic. Safety concern for aspiration so chapis swallow put on hold until pt is more alert. [facility] 07-28-2024 Nurse Note Assessment completed without changes to previous except as documented. Safety rounds completed with pt in bed and call light within reach. Bed exit alarm set. NIH modified scale of 1. [facility] 07-28-2024 Note Acute Coronary Syndr ome (ACS): Initial Evaluation and Management: [email or web address]://[email or web address].edu/sites/ ebm/Documents/Guidelines/Acute%20C oronary%20Syndrome.pdf#search=trop onin [facility] 07-27-2024 Nurse Note Images from the original note were not included. On admission to 3, from another [facility] inpatient unit a dual RN initial assessment of skin condition was performed by Kulwinder Garcia RN and Laura Solis RN. Skin Assessment: Skin not within defined limits. - Photo taken and uploaded into notes in IHIS: Yes LDA Added:No Kulwinder Garcia RN [facility] 07-27-2024 Nurse Note Patient transported from [place] to on tele and pulse ox. Report called previously. [facility] 07-27-2024 Nurse procedure note Notes from conversation [...] 2 weeks. ASA 81 milligrams po daily [facility] 07-27-2024 History and physical note Hospital Medicine [...] the hospital today as a transfer from [facility] for AMS and poss seizure activity [...] was just cleared to drive by the [facility] within the last 2 weeks. She had [...] at 1617 hours. While in MRI an CUTTER GRINDER OPERATOR/ERT was called for seizure like activity. She [...] No tremor, atrophy or seizure activity. Coordination: Oxepph-Itdf-Ceuquo Test abnormal and Heel to Yi Test [...] state she can see me. Data Review [facility] 07-27-2024 History and physical note Hospital Medicine [...] the hospital today as a transfer from [facility] for AMS and poss seizure activity [...] at 1617 hours. While in MRI an CUTTER GRINDER OPERATOR/ERT was called for seizure like activity. She [...] No tremor, atrophy or seizure activity. Coordination: Wvbkbr-Kutv-Keteih Test abnormal and Heel to Yi Test [...] Data Review documented in this encounter [facility] 02-08-2024 Discharge summary Note Date/Time February 08, 2024 2:14pm [facility] Medical Records Department [address] [place] [address] Instructions for Home/Discharge Instructions 02/08/24 1413 MR#: [id number] Acct: [id number] Name: POONAM VELOZ Rep #:[id number] : 1940 83 From: Jayy gamboa MD [...] mg tablet 50 mg PO DAILY Discontinued udtyfagdbu-tciagppxr-sbafovpeb 5-160-12.5 mg tablet 1 tab PO QDAY lactobacillus combination no.9 [Adult 50 Plus Probiotic] 4 billion cell capsule 4,000 mmu cells PO QDAY Other Ambulatory Orders: 30 Day Event Recorder Preventi (Routine) Timeframe: 1 Day Facility: [facility] - Location: Cardiovascular Services Ordered By: [...] Oconnor DO; Rossy Dong MD ~ Signed [facility] Work Phone: 1(674) 507-811405-08-2024 Consult note Author Lien Corona [facility] February 08, 2024 11:18am Note Date/Time February 08, 2024 11:14a m [facility] Medical Records Department [address] [place] [address] Consultation - Neurology 02/08/24 1112 MR#: [id number] Acct: [id number] Name: POONAM VELOZ Rep #:[id number] : 1940 83 From: Lien Corona MD [...] was having trouble speaking. Patient brought to [place] ER. CT nic showed a left inferior division MCA infarct (read as TRENCH DIGGER on report- but this is incorrect). CTA [...] was having trouble speaking. Patient brought to [place] ER. CT nic showed a left inferior division MCA infarct (read as TRENCH DIGGER on report- but this is incorrect). 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 NIHSS 6. She was admitted. 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 She is on Asa, lipitor 40. reports she is better this morning, but still confused. [facility] Medical History (Updated 02/07/24 @ 15:38 by [...] and with change in RN caregiver. Freq: [id number] Protocol: Activity Type Activity Date Activity User [...] (Auto) 70.2 H, Lymph % (Auto) 20.1, [place] % (Auto) 6.9, Eos % (Auto) 1.8, [...] ID and State: [facility] / [place] Tel [phone], Service support , ADDENDUM: 02/07/24 1737 IMPRESSION: Indications consistent with acute ischemic infarction in the posterior left temporal and parietal lobes. No evidence for associated hemorrhage. N.B. : The above Results were Read Back by Humberto Pennington MD to Domonique Quach RN, and understanding confirmed on 02/07/2024 17:30:49 (ET). Electronically Signed: Humberto Pennington MD at 16:50 EDT Reading Location ID and State: [address] [place] [address] Tel , Service support , Carotid Duplex [...] applicable): CC: Dr. Clyde Downing MD~ Signed [facility] Work Phone: 1(343) 741-651805-07-2024 History and physical note Author Jayy Vera [facility] February 07, 2024 5:21pm Note Date/Time February 07, 2024 11:26a m [facility] Medical Records Department [address] [place] [address] H&P Exam - Hospitalist 02/07/24 1126 MR#: [id number] Acct: [id number] Name: POONAM VELOZ Rep #:[id number] : 1940 83 From: Jayy gamboa MD [...] NIH of approximately 6 in the ER. [facility] Medical History (Updated 02/07/24 @ 15:38 by [...] 75.3 H, Lymph % (Auto) 14.7 L, [place] % (Auto) 6.3, Eos % (Auto) 2.8, [...] with colleagues Charges/Coding Visit Charges Inpatient E&M: 81538 Init Hosp L3 02/07/24 1721 <Electronically signed by Jayy Vera MD> Cosigner Signature (if applicable): CC: Dr. Jayy Vera MD; Dr. Clyde Downing MD~ Signed [facility] Work Phone: [phone]) 703-348405-07-2024 Discharge summary Author Anselmo Potts [facility] February 07, 2024 12:29pm Note Date/Time February 07, 2024 9:42am [facility] Medical Records Department [address] [place] [address] Emergency Department Summary 02/07/24 MR#: [id number] Acct: [id number] Name: POONAM VELOZ Rep #:[id number] : 1940 83 From: Anselmo Potts DO [...] get in the car on the way [facility] physician's office and could not open the [...] They did not get seen for this. [facility] Medical History Arthritis DDD (degenerative disc [...] 75.3 H Lymph % (Auto) 14.7 L [place] % (Auto) 6.3 Eos % (Auto) 2.8 [...] Anselmo Potts Dx/Rx/DC Orders Prescriptions: No Action ftcokvtgqb-ajtaveglj-bfptvlqcr 5-160-12.5 mg tablet 1 tab PO QDAY [...] your Primary Care Provider. Call [facility] ([phone]) or report to the closest Emergency Room. Call 911 if necessary. 02/07/24 1229 <Electronically signed by Anselmo Potts DO> Cosigner Signature (if applicable): CC: Dr. Clyde Downing MD ~ Signed [facility] Work Phone: 1(322) 724-678105-07-2024 Discharge summary Author [facility] February 07, 2024 12:29pm Note Date/Time February 07, 2024 9:42am [facility] Medical Records Department [address] [place] [address] Emergency Department Summary 02/07/24 MR#: [id number] Acct: [id number] Name: POONAM VELOZ Rep #:[id number] : 1940 83 From: Anselmo Potts DO [...] They did not get seen for this. [facility] Medical History Arthritis DDD (degenerative disc disease), [...] 75.3 H Lymph % (Auto) 14.7 L [place] % (Auto) 6.3 Eos % (Auto) 2.8 [...] Anselmo Potts Dx/Rx/DC Orders Prescriptions: No Action bbdjdwjovj-ylsfxolaj-gutpuclwq 5-160-12.5 mg tablet 1 tab PO QDAY [...] your Primary Care Provider. Call [facility] ([phone]) or report to the closest Emergency Room. Call 911 if necessary. 02/07/24 1229 <Electronically signed by Anselmo Potts DO> Cosigner Signature (if applicable): CC: Dr. Clyde Downing MD ~ Signed [facility] Work Phone: Discharge summary Author Jayy Vera [facility] February 08, 2024 6:35pm Note Date/Time February 08, 2024 6:26pm [facility] Medical Records Department [address] [place] [address] Discharge Summary 02/08/24 1824 MR#: [id number] Acct: [id number] Name: POONAM VELOZ Rep #:[id number] : 1940 83 From: Jayy gamboa MD PCP: Dr. Clyde Downing MD Status:ADM I N Location: ICU [place] [address] Providers Date of Admission: 02/07/24 Primary Care [...] day of discharge which was unremarkable for wxzbo-ys-yifd shunt. I discussed with the family the [...] (Auto) 70.2 H, Lymph % (Auto) 20.1, [place] % (Auto) 6.9, Eos % (Auto) 1.8, [...] mg tablet 50 mg PO DAILY Discontinued eorxihwzpy-rcfeokzcm-zkzxmnhvt 5-160-12.5 mg tablet 1 tab PO QDAY lactobacillus combination no.9 [Adult 50 Plus Probiotic] 4 billion cell capsule 4,000 mmu cells PO QDAY Other Ambulatory Orders: 30 Day Event Recorder Preventi (Routine) Timeframe: 1 Day Facility: [facility] - Location: Cardiovascular Services Ordered By: Dr. Jayy Vera Referrals / Follow Up: Ricardo Orr MD [Med Staff - Active Staff] - Within 2 Weeks (Right >70% ICA occlusion) Clyde Downing MD [Primary Care Provider] - Within 1 Week Disposition Disposition (needs filled in before D/C Order can be placed): Home Health Service Charges/Coding Visit Charges Inpatient E&M: 66278 Disch Hosp >30min 02/08/24 1835 <Electronically signed by Jayy Vera MD> Cosigner Signature (if applicable): CC: Dr. Jayy Vera MD; Dr. Clyde Downing MD~ Signed [facility] Work Phone: Evaluation note* Diagnosis Onset Date Resolution Status Back pain acute Segmental and somatic dysfunction of cervical region acute Segmental and somatic dysfunction of lumbar region acute Segmental and somatic dysfunction of pelvic region acute Segmental and somatic dysfunction of thoracic region acute DDD (degenerative disc disease), lumbar chronic [facility] Work Phone: Evaluation note* Diagnosis Onset [...] acute DDD (degenerative disc disease), lumbar chronic [facility] Work Phone: Evaluation note* Diagnosis Onset [...] lumbar chronic CVA (cerebral vascular accident) acute [facility] Work Phone: Evaluation note* Diagnosis Stroke- [...] Encephalopathy, unspecified [facility] St[facility]- Primary Unspecified cerebral artery occlusion with cerebral infarction Breakthrough seizure Unspecified epilepsy with intractable epilepsy Electrolyte disorder (K, Cl, or Na) Electrolyte and fluid disorders not elsewhere classified Cerebrovascular accident (CVA), unspecified mechanism Other cerebrovascular vasospasm and vasoconstriction Electrolyte disorder (K, Cl, or Na) Electrolyte and fluid disorders not elsewhere classified [facility] information available [facility] Work Phone: Reason for referral (narrative)* Consultation (Routine) - New Request Specialty Diagnoses / Procedures Referred By Contac t Referred To Contact Neurology Diagnoses Cerebrovascular accident (CVA), unspecified mechanism Yaniv Greco MD [address] [place] [address] Referral ID Status Reason Start Date Expiration Date V isits Requested Visits Authorized [id number] New Request 10/31/2024 11/25/2025 1 1 * Radiology (Routine) - New Request Specialty Diagnoses / Procedures Referred By Contac t Referred To Contact Diagnoses Cerebrovascular accident (CVA), unspecified mechanism Other cerebrovascular vasospasm and vasoconstriction Procedures MOBILE CARDIAC TELEMETRY Yaniv Greco MD [address] [place] [address] Referral ID Status Reason Start Date Expiration Date V isits Requested Visits Authorized [id number] New Request 10/31/2024 11/25/2025 1 1 * Adjunctive Therapy (Routine) - New Request Specialty Diagnoses / Procedures Referred By Contac t Referred To Contact Diagnoses Breakthrough seizure Cerebrovascular accident (CVA), unspecified mechanism Yaniv Greco MD [address] [place] [address] Referral ID Status Reason Start Date Expiration Date V isits Requested Visits Authorized [id number] New Request 10/31/2024 11/25/2025 1 1 * Unlisted Procedure Code (Routine) - New Request Specialty Diagnoses / Procedures Referred By Contac t Referred To Contact Procedures PLATELET MONITORING PER PROTOCOL Yaniv Greco MD [address] [place] [address] Referral ID Status Reason Start Date Expiration Date V isits Requested Visits Authorized [id number] New Request 10/30/2024 11/24/2025 1 1 * Unlisted Procedure Code (Routine) - New Request Specialty Diagnoses / Procedures Referred By Contac t Referred To Contact Procedures DVT/VTE RISK ASSESSMENT Yaniv Greco MD [address] [place] [address] Referral ID Status Reason Start Date Expiration Date V isits Requested Visits Authorized [id number] New Request 10/30/2024 11/24/2025 1 1 * (Routine) Specialty Diagnoses / Procedures Referred By Contac t Referred To Contact [facility] [address] [place] [address] Referral ID Status Reason Start Date Expiration Date Visits Re quested Visits Authorized * Unlisted Procedure Code (Routine) - New Request Specialty Diagnoses / Procedures Referred By Contac t Referred To Contact Procedures DVT/VTE RISK ASSESSMENT Ginger Sevilla MD [address] [place] [address] Referral ID Status Reason Start Date Expiration Date V isits Requested Visits Authorized [id number] New Request 10/29/2024 11/23/2025 1 1 * Radiology (Emergency) - New Request Specialty Diagnoses / Procedures Referred By Contac t Referred To Contact Procedures ECG Rosales Zelaya MD [address] [place] [address] Referral ID Status Reason Start Date Expiration Date V isits Requested Visits Authorized [id number] New Request 10/27/2024 11/21/2025 1 1 [facility]narrative)No reason for referral information [facility] Work Phone: Reason for visit Narrative* Auth/Cert Specialty Diagnoses / Procedures Referred By Contac t Referred To Contact Diagnoses seizure Elizabet Foreman MD [address] [place], [place] [address] [facility] [address] [place] [address] Referral ID Status Reason Start Date Expiration Date Visits Re quested Visits Authorized [id number] 1 1 [facility] N[facility]ative* Auth/Cert Specialty Diagnoses / Procedures Referred By Contac t Referred To Contact Diagnoses Stroke LEVEL A STROKE ALERT, s/p lytics, LKW: 1500, ETA: Ginger Mohr MD [address] [place] [id number] [facility] [address] [place] [address] Referral ID Status Reason Start Date Expiration Date Visits Re quested Visits Authorized [id number] 1 1 [facility] Chief Complaint and Reason for Visit Chief [...] Date/ Time Name of Medical Power of Core Drill Operator Helper February 07, 2024 10:00am Living Will Yes February 07, 2024 10 :00am Power of Core Drill Operator Helper Yes February 07, 2024 10:00am Advance Directive Response Recorded Date/ Time Name of Medical Power of Core Drill Operator Helper February 07, 2024 10:00am Living Will No February 08, 2024 1: 51pm Power of Core Drill Operator Helper No February 08, 2024 1:51pm Date Activated [...] Do you have a Healthcare Power of Core Drill Operator Helper? No February 08, 2024 1:51pm Living Will No Lucila 25th, 20 25 5:35pm Do you have a Healthcare Power of Core Drill Operator Helper? No October 27, 2024 5:35pm Reason for Referral Specialty Diagnoses / Procedures Referred By Contac t Referred To Contact Social Work Diagnoses Seizure Normocytic anemia Essential hypertension Josias Joseph MD [address] [place] [address] Referral ID Status Reason Start Date Expiration Date V isits Requested Visits Authorized [id number] New Request 07/30/2024 08/24/2025 1 1 Specialty Diagnoses / Procedures Referred By Contac t Referred To Contact Neurology Diagnoses Seizure History of arterial ischemic stroke Other hyperlipidemia Normocytic anemia Essential hypertension Josias Joseph MD [address] [place] [address] Referral ID Status Reason Start Date Expiration Date V isits Requested Visits Authorized [id number] New Request 07/30/2024 08/24/2025 1 1 Specialty Diagnoses / Procedures Referred By Contac t Referred To Contact Procedures PLATELET MONITORING PER PROTOCOL Donn Denton DO [address] [place] [address] Referral ID Status Reason Start Date Expiration Date V isits Requested Visits Authorized [id number] New Request 07/27/2024 08/21/2025 1 1 Specialty Diagnoses / Procedures Referred By Contac t Referred To Contact Procedures DVT/VTE RISK ASSESSMENT Donn Denton DO [address] [place] [address] Referral ID Status Reason Start Date Expiration Date V isits Requested Visits Authorized [id number] New Request 07/27/2024 08/21/2025 1 1 Summary [...] Active Rossy Dong MD Other Provider Active Registered Physical Therapist Relationship Specialty Start Date End Date Clyde Downing MD [address] [place], [place] [id number] PCP - General Family Medicine 07/30/24 Team Status: Inactive Member Role Status Dates Dr. Clyde Downing MD Primary Care Provider, Attending Provider Active Registered Physical Therapist Relationship Specialty Start Date End Date Clyde Downing MD [address], [place] [id number] PCP - General Family Medicine 07/30/24 Team [...] Ulloa RN) 0900 (Given - Provider: Verónica Vael RN) Losartan (COZAAR) tablet 50 mg 50 [...] Portillo RN) 0847 (Given - Provider: Verónica Poritllo, CAROLYN) hydroCHLOROthiazide (MICROZIDE) capsule 12.5 mg 12.5 [...] over 2 minutes. 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 [...] section and content) DATE CREATED AUTHOR 11/10/2024 [facility] DATE CREATED AUTHOR AUTHOR'S BRADYIZ ATION 02/28/2025 [facility] FOR RECORDS PERTAINING TO PATIENTS WHO [...] BE BASED ON THE PRIMARY CLINICAL RECORDS. [email or web address] provides no warranty or guarantee of the accuracy or completeness of information in this document.
[2025-03-08 23:43] LABS: Color, Urine Straw (Yellow); Glucose, Dipstick Normal (Normal); Ketone-Dipstick 5 mg/dl (Negative); Leukocyte Esterase-Dipstick Negative /ul (Negative); Nitrite-Dipstick Negative (Negative); Occult Blood-Urine Negative /ul (Negative); Protein-Dipstick 30 mg/dl (Negative); Urine Bilirubin Dipstick Negative (Negative); Urine Clarity Clear (Clear); Urine Urobilinogen Normal (Normal)
--- NOTE | 2025-03-08 23:49 | ECHOD_ITS ---
Reason For Study Reason For Study: TIA/CVA Procedure This was a 2D Doppler, Color Flow transthoracic echocardiogram. The patient was scanned supine. Exam performed portable in patient room. Left Ventricle Normal size and thickness. The LV systolic function is normal. EF is 65 %. Normal diastology for age. Right Ventricle Normal right ventricle. Atria The left atrium is mildly enlarged. Normal right atrium. Mitral Valve Mild (1+) mitral valve insufficiency. Tricuspid Valve Mild tricuspid valve insufficiency. Right ventricular systolic pressure estimated to be 41 mmHg. Aortic Valve Aortic sclerosis, no stenosis. Mild (1+) aortic valve insufficiency. Pulmonic Valve The pulmonic valve is not well visualized. Great Vessels Normal sized aortic root. Pericardium/Pleural No pericardial effusion. MMode/2D Measurements & Calculations LVIDd: 3.8 cm IVSd: 1.0 cm LVOT diam: 1.9 cm LVIDs: 2.1 cm LVPWd: 0.79 cm LVOT area: 2.7 cm2 RVDd: 2.8 cm FS: 45.3 % asc Aorta Diam: 3.5 cm LAV(MOD-bp): 23.8 ml LVAd ap4: 16.6 cm2 LAV(MOD-bp) Indexed: 15.7 ml/m2 LVLd ap4: 7.0 cm LAV(MOD-sp2): 22.2 ml EDV(MOD-sp4): 32.1 ml LAV(MOD-sp4): 22.9 ml EDV(sp4-el): 33.6 ml LVAs ap4: 7.4 cm2 LVLs ap4: 5.3 cm ESV(MOD-sp4): 8.8 ml ESV(sp4-el): 8.7 ml EF(MOD-sp4): 72.4 % EF(sp4-el): 74.2 % LVAd ap2: 14.8 cm2 SV(MOD-sp4): 23.2 ml SV(MOD-sp2): 19.2 ml LVLd ap2: 6.3 cm SI(MOD-sp4): 15.3 ml/m2 SI(MOD-sp2): 12.6 ml/m2 EDV(MOD-sp2): 29.5 ml EDV(sp2-el): 29.5 ml LVAs ap2: 7.8 cm2 LVLs ap2: 5.1 cm ESV(MOD-sp2): 10.3 ml ESV(sp2-el): 10.2 ml EF(MOD-sp2): 65.2 % SV(sp4-el): 24.9 ml Ao sinus diam: 2.[address] Junction: 2.3 cm LA dimension(2D): 3.1 cm LA A4 area: 11.6 cm2 RA A4 area: 7.9 cm2 TAPSE: 1.7 cm Time Measurements MV dec time: 0.20 sec Doppler Measurements & Calculations MV E max anish: 91.1 cm/sec Lat Peak E' Anish: 9.5 cm/sec Med Peak E' Anish: 7.9 cm/sec MV A max anish: 109.5 cm/sec E/E' lat: 9.5 E/E' med: 11.5 MV E/A: 0.83 MV dec slope: 462.6 cm/sec2 Ao V2 max: 113.2 cm/sec LV V1 max: 92.6 cm/sec Ao max P.1 mmHg LV V1 max P.4 mmHg Ao V2 mean: 82.8 cm/sec LV V1 mean P.8 mmHg Ao mean P.0 mmHg LV V1 mean: 63.7 cm/sec Ao V2 VTI: 31.4 cm LV V1 VTI: 23.6 cm AV (velocity ratio): 0.75 [place](I,D): 2.0 cm2 [place](V,D): 2.2 cm2 SV(LVOT): 63.9 ml PA V2 max: 87.0 cm/sec TR max anish: 299.7 cm/sec TR max P.9 mmHg ECHO/Echo Complete Interpretation Summary The LV systolic function is normal. EF is 65 %. The left atrium is mildly enlarged. Mild (1+) mitral valve insufficiency. Mild tricuspid valve insufficiency. Right ventricular systolic pressure estimated to be 41 mmHg. Aortic sclerosis, no stenosis. Mild (1+) aortic valve insufficiency. Ordering Physician: Taina Lozano Referring Physician: Clyde Downing Performed By: Karen Culp RDCS
[2025-03-09] VITALS: BP 124/68; PULSE 70; RESP 15; TEMP 36.7; O2SAT 94
[2025-03-09 00:05] VITALS: O2SAT 100
[2025-03-09 00:06] LABS: Bacteria 0 SEEN /hpf (None Seen); Squamous Epithelial Cells - UA 0-5 SEEN /hpf (5-10)
[2025-03-09 00:20] VITALS: BMI 22.8
[2025-03-09] MEDS: 0.9% Normal Saline (1000mL) 1,000 ML 100 ML IV (00:48)
[2025-03-09] MEDS: levETIRAcetam 500 MG Tablet PO ×3 (00:49→21:41)
[2025-03-09 01:05] LABS: Magnesium 2.1 mg/dL (1.5-2.2)
[2025-03-09 01:53] VITALS: BMI 22.8
[2025-03-09 03:58] VITALS: BMI 22.8
[2025-03-09 04:00] VITALS: BP 113/72; PULSE 71; RESP 16; TEMP 36.5; O2SAT 97
[2025-03-09 07:24] LABS: Absolute Lymphocyte Count 1.77 X10^3/uL (0.83-4.51); Absolute Neutrophil Count 4.8 X10^3/uL (2.0-7.7); Basophil# 0.04 X10^3/uL; Basophil% 0.6 % (0-1); Eosinophil# 0.06 X10^3/uL; Eosinophils% 0.8 % (0-5); Hematocrit 35.8 % (37-47); Hemoglobin 12.1 g/dL (12.0-15.0); Lymphocyte # 1.77 X10^3/ul (0.83-4.51); Lymphocyte % 24.6 % (19-41); Mean Corp Hgb Conc 33.8 g/dL (32-36); Mean Corpuscular Hgb 28.4 pg (27.0-32.0); Mean Platelet Vol. 9.8 fl (6.2-12.0); Monocyte# 0.52 X10^3/uL; Monocyte% 7.2 % (0-10); NRBC Flagged by Analyzer 0 % (0-5); Neutrophil # 4.78 X10^3/uL (2.7-7.7); Neutrophil % 66.5 % (47-70); Platelet Count 211 K/mm3 (150-450); RBC Distribution Width SD 45.9 fl (35.1-43.9); Red Blood Count 4.26 M/mm3 (4.2-5.4); White Blood Count 7.2 K/mm3 (4.4-11.0)
[2025-03-09 08:01] LABS: ALB/GLOB Ratio 1.4 RATIO (0.9-2.4); AST(SGOT) 23 U/L (<=31); Alanine Aminotransfer ALT/SGPT 10 U/L (<=34); Albumin, Serum 3.9 g/dL (3.4-4.8); Alkaline Phosphatase 89 U/L (35-104); Anion Gap 11 (5-15); BUN 13 mg/dL (4-19); BUN/Creat Ratio 14.4 RATIO (10-20); Calcium,Total 9.2 mg/dL (7.6-11.0); Carbon Dioxide 21.2 mmol/L (21.0-32.0); Chloride 108 mmol/L (98-108); Cholesterol 166 mg/dL (<=200); Creatinine, Serum 0.87 mg/dL (0.70-1.20); EST Glomerular Filtration Rate 66 (>60); Estimated Creatinine Clearance 37.62 ml/min (50-250); Globulin 2.7 g/dL (2.2-4.2); Glucose 107 mg/dL (70-99); High Density Lipoprotein 66 mg/dL; Low Density Lipoprotein Calc. 84 mg/dL; Potassium 3.9 mmol/L (3.3-5.1); Protein, Total 6.6 g/dL (5.9-8.4); Sodium Level 141 mmol/L (133-145); Total Bilirubin 0.45 mg/dL (0.00-1.30); Triglycerides 83 mg/dL; Very Low Density Lipoprotein 17 mg/dL (5-40); cholesterol:hdl ratio screen 2.52
[2025-03-09 08:08] LABS: Hemoglobin A1c 5.7 % (<=5.6)
[2025-03-09] MEDS: LORazepam 0.5 MG Tablet PO ×2 (08:52→09:20)
[2025-03-09] MEDS: Aspirin 81 MG TAB.CHEW PO (08:53)
--- NOTE | 2025-03-09 10:00 | MRI_ITS ---
PROCEDURE: BRAIN WITHOUT CONTRAST N/A REASON FOR EXAM: CVA TECHNIQUE: Noncontrast brain MRI. Multiplanar and multisequence images were obtained. FINDINGS: Brain: Large old left parietal infarct with wallerian degeneration of white matter tracts and ex vacuo dilatation of the posterior horn of the left lateral ventricle. No restricted diffusion. No mass, mass effect or midline shift. Ventricles: Mildly prominent ventricles and sulci from age-related involution. Major Intracranial Vessels: Normal flow voids in the anterior circulation and vertebrobasilar system. Sinuses: Unremarkable Mastoids: Clear MRI/Brain without Contrast IMPRESSION: Old left parietal infarct. No restricted diffusion or other indication of acute pro Reading Location[facility]
[2025-03-09] MEDS: Sertraline 100 MG Tablet PO (11:52)
[2025-03-09] MEDS: Enoxaparin 40 MG/0.4 ML Syringe SC (11:52)
--- NOTE | 2025-03-09 12:27 | CASEMGMT ---
Social Work As per physician, pt did not have a stroke so PHQ-9 not completed. CHRISTOPHER Cm
--- NOTE | 2025-03-09 15:00 | NEURO.CONS ---
Assessment and Plan: Neuro Assessment/Plan POONAM GOULD is a 84 F with a past medical history of recent L parietal stroke, being evaluated by Teleneurology for transient confusion. Workup thus far has been largely benign. Pt endorses being back to baseline and based on prior neurology notes, appears back to normal. No new stroke, no infection, cannot rule out seizure based on very limited information. Plan: - routine EEG I personally attended this patient and spent a total time of 45minutes evaluating this patient including clinical assessment, review of chart, medical history imaging, and determining appropriate treatment and workup. HPI Consult Data Date of Consult: 03/10/25 HPI Narrative HPI Narrative: The patient is an 84 y/o F w/ PMHx: CKD stage II per GFR trending, Hx Prior CVA w/ chronic aphasia (baseline prior unaware of her age or month often as examples), Anxiety and Depression, Seizure disorder, HTN, HLD who presents to the [facility] ED on 03/08/25 with history of worsening confusion above her baseline with history of CVA per her neighbor approximately 1 month ago but unsure of exact date with chronic aphasia working with speech therapy but they contacted EMS because the patient had seemed more confused and they were unsure of when it started. Upon ED arrival patient does have noted staged bruising including to her right elbow and right eyelid and is unsure of when she fell or what happened. Workup in the ED included T97.9, heart rate 69, BP 161/85, respiratory rate 16, 99% on room air, CBC with WBC 9.2, hemoglobin 13.2, MCV 84.6, platelet 252 without marked shift, unremarkable coags, unremarkable BMP aside from BUN/2015/0.91, GFR 63, unremarkable urinalysis, chest x-ray with no acute cardiopulmonary findings, EKG with sinus rhythm with no acute evidence of ischemia, CT brain/CTA head and neck with no acute intracranial abnormality with atrophy and chronic ischemic changes, moderate short segment stenosis of the proximal right ICA up to 70% with no large vessel occlusion of the [place] nor any sizable aneurysm. Prior Neurology Notes: aphasia and partial visual field deficit. NIHSS 6. Neurologic History On exam, patient states she is returned to baseline. On questioning, she is very frustrated. No family reachable. Pt denies knowing that something was wrong Neurologic Exam -? General: Laying comfortably in bed; in no acute distress. -? HENT: Normal oropharynx and mucosa. Normal external appearance of ears and nose. Exophthalmos. -? Neck: Supple, no pain or tenderness -? CV:? No peripheral edema. -? Pulmonary:? Normal respiratory effort. -? Ext: No cyanosis, edema, or deformity -? Skin: No rash. Normal palpation of skin.? -? Musculoskeletal: full range of motion; no joint tenderness. Normal digits and nails by inspection. No clubbing. -? NEURO: -? Mental Status: The patient was alert and oriented to time, place, and person. Normal recent/remote memory, concentration, and general fund of knowledge. -? Language: speech is clear, comprehension intact, poor fluency and has expressive aphasia largely -? Cranial Nerves: PERRL 4mm/brisk. EOMI, visual cano full, no facial asymmetry, facial sensation intact, -? 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 Tone: is normal and bulk is normal -? Sensation- Intact to light touch bilaterally -? Coordination: No dysmetria on [id number], finger follow finger or [id number]. -? Gait- deferred [facility] Medical History CKD (chronic kidney disease), stage II Anxiety and depression Stenosis of right carotid artery Seizure disorder History of CVA (cerebrovascular accident) DDD (degenerative disc disease), lumbar TMJ (temporomandibular joint syndrome) Hypertension Migraines Glaucoma Arthritis Environmental allergies Home Medications ?Medication ?Instructions ?Recorded ?Last Taken ?Type losartan 50 mg tablet 50 mg PO DAILY 02/07/24 10/27/24 History aspirin 81 mg chewable tablet 81 mg PO BREAKFAST 30 days #30 tabs 02/08/24 10/27/24 Rx levetiracetam 500 mg tablet 500 mg PO BID 10/27/24 10/27/24 History sertraline 100 mg tablet 100 mg PO DAILY 10/27/24 10/27/24 History rosuvastatin 5 mg tablet 5 mg PO DAILY 03/08/25 Unknown History Allergy/AdvReac Type Severity Reaction Status Date / Time No Known Allergies Allergy Verified 10/27/24 16:16 Family History Mother CVA (cerebral vascular accident) Hypertension Father CVA (cerebral vascular accident) Hypertension Surgical History S/P appendectomy Social History household members: none Smoking Status: Never smoker alcohol intake: never substance use type: does not use what type of physical activity do you participate in: walking and aerobics frequency: 3-4 times per week Vital Signs Vital Signs Vital Signs: 03/08/25 20:31 03/08/25 21:20 03/08/25 21:26 Temperature 97.9 F 98.2 F Temperature Source Oral Oral Pulse Rate 69 90 Pulse Strength Respiratory Rate 16 16 Respiratory Effort Respiratory Depth Respiratory Pattern Blood Pressure 161/85 H 157/102 H Blood Pressure Mean 110 120 Blood Pressure Source Blood Pressure Position Blood Pressure Location Pulse Ox 99 96 Oxygen Delivery Method Room Air Room Air Room Air 03/08/25 21:29 03/08/25 22:00 03/08/25 22:54 Temperature 99.5 F H Temperature Source Pulse Rate 99 73 74 Pulse Strength Respiratory Rate 20 H 15 16 Respiratory Effort Respiratory Depth Respiratory Pattern Blood Pressure 130/117 H 142/109 H 142/109 H Blood Pressure Mean 121 120 120 Blood Pressure Source Blood Pressure Position Blood Pressure Location Pulse Ox 97 97 100 Oxygen Delivery Method Room Air Room Air 03/09/25 00:00 03/09/25 00:02 03/09/25 00:05 Temperature 98.1 F Temperature Source Temporal Pulse Rate 70 Pulse Strength Respiratory Rate 15 Respiratory Effort Normal Non-Labored Respiratory Depth Normal Respiratory Pattern Normal Blood Pressure 124/68 H Blood Pressure Mean 86 Blood Pressure Source Monitor Blood Pressure Position Semi-Fowlers Blood Pressure Location Right Arm Pulse Ox 94 100 Oxygen Delivery Method Room Air Room Air Room Air 03/09/25 04:00 03/09/25 04:27 03/09/25 08:59 Temperature 97.7 F L Temperature Source Temporal Pulse Rate 71 Pulse Strength Normal (2+) Respiratory Rate 16 Respiratory Effort Normal Non-Labored Respiratory Depth Normal Respiratory Pattern Normal Blood Pressure 113/72 Blood Pressure Mean 85 Blood Pressure Source Monitor Blood Pressure Position Semi-Fowlers Blood Pressure Location Right Arm Pulse Ox 97 Oxygen Delivery Method Room Air Room Air 03/09/25 09:01 03/09/25 11:38 03/09/25 14:00 Temperature Temperature Source Pulse Rate Pulse Strength Respiratory Rate Respiratory Effort Normal Non-Labored Normal Non-Labored Respiratory Depth Normal Normal Respiratory Pattern Normal Normal Blood Pressure Blood Pressure Mean Blood Pressure Source Blood Pressure Position Blood Pressure Location Pulse Ox Oxygen Delivery Method Room Air Room Air Room Air Weight Weight: 54.7 kg Body Mass Index (BMI) 22.8 EEG Results Procedure Details EEG Procedure Details: POONAM GOULD is a 84 year old F with a past medical history of , who presents for evaluation of Electroencephalogram on DATE at TIME Lab / Micro Data 03/09/25 06:41 03/09/25 06:41 Labs: Laboratory Results - last 24 hr 03/08/25 21:16: WBC 9.2, RBC 4.61, Hgb 13.2, Hct 39.0, MCV 84.6, MCH 28.6, MCHC 33.8, RDW Std Deviation 45.2 H, RDW Coeff of Edi 14.8 H, Plt Count 252, MPV 9.5, Immature Gran % (Auto) 0.300, Neut % (Auto) 77.8 H, Lymph % (Auto) 15.2 L, [place] % (Auto) 6.0, Eos % (Auto) 0.3, Baso % (Auto) 0.4, Absolute Neuts (auto) 7.1, Absolute Lymphs (auto) 1.40, Nucleated RBC % 0, PT 14.0, INR 1.1, Sodium 139, Potassium 3.8, Chloride 104, Carbon Dioxide 21.5, Anion Gap 14, BUN 15, Creatinine 0.91, Estim Creat Clear Calc 35.97 L, Est GFR (MDRD) Non-Af 63, BUN/Creatinine Ratio 16.7, Glucose 95, Calcium 9.8, Magnesium 2.1 03/08/25 23:00: Urine Color Straw, Urine Clarity Clear, Urine pH 7.0, Ur Specific [place] 1.010, Urine Protein 30 H, Urine Glucose (UA) Normal, Urine Ketones 5 H, Urine Occult Blood Negative, Urine Nitrite Negative, Urine Bilirubin Negative, Urine Urobilinogen Normal, Ur Leukocyte Esterase Negative, Urine RBC 0 SEEN, Urine WBC 0 SEEN, Ur Squamous Epith Cells 0-5 SEEN, Urine Bacteria 0 SEEN, Urine Mucus 0 SEEN 03/09/25 06:41: WBC 7.2, RBC 4.26, Hgb 12.1, Hct 35.8 L, MCV 84.0, MCH 28.4, MCHC 33.8, RDW Std Deviation 45.9 H, RDW Coeff of Edi 15.0 H, Plt Count 211, MPV 9.8, Immature Gran % (Auto) 0.300, Neut % (Auto) 66.5, Lymph % (Auto) 24.6, [place] % (Auto) 7.2, Eos % (Auto) 0.8, Baso % (Auto) 0.6, Absolute Neuts (auto) 4.8, Absolute Lymphs (auto) 1.77, Nucleated RBC % 0, Sodium 141, Potassium 3.9, Chloride 108, Carbon Dioxide 21.2, Anion Gap 11, BUN 13, Creatinine 0.87, Estim Creat Clear Calc 37.62 L, Est GFR (MDRD) Non-Af 66, BUN/Creatinine Ratio 14.4, Glucose 107 H, Hemoglobin A1c 5.7, Calcium 9.2, Total Bilirubin 0.45, AST 23, ALT 10, Alkaline Phosphatase 89, Total Protein 6.6, Albumin 3.9, Globulin 2.7, Albumin/Globulin Ratio 1.4, Triglycerides 83, Cholesterol 166, LDL Cholesterol, Calc 84, VLDL Cholesterol 17, HDL Cholesterol 66, Cholesterol/HDL Ratio 2.52, TSH 2.840 Imaging Radiology Impression Head/Neck CTA 03/08/25 21:32 IMPRESSION: 1. No acute intracranial abnormality. Atrophy and chronic ischemic changes as above. 2. Moderate short-segment stenosis of the proximal right ICA (up to 70%). 3. No large vessel occlusion of the [id number]. No sizable aneurysm. Reading [facility] 03/08/25 22:40 IMPRESSION: No acute cardiopulmonary abnormality. Mild blunting of the right costophrenic angle is not significantly changed and may be the result of atelectasis or scarring, with pleural effusion less likely. Reading Location: [id number] Brain MRI 03/09/25 10:00 IMPRESSION: Old left parietal infarct. No restricted diffusion or other indication of acute pro Reading Location[facility] Active Medications Active Medications Active Medications: Current Medications Generic Name Dose Route Start Last Admin Trade Name Freq PRN Reason Stop Dose Admin Acetaminophen 650 mg 03/08/25 23:49 Acetaminophen 325 Mg Tablet PO Q4H PRN PRN Fever, pain 1-1010 Al Hydroxide/Mg Hydroxide 30 ml 03/08/25 23:49 Mag Hydrox/Al Hydrox/Simeth 30 Ml Udc PO Q6H PRN PRN Gastric Burning Albuterol Sulfate 2.5 mg 03/08/25 23:49 Albuterol 2.5 Mg/3 Ml Vial.Neb. INHALATION Q2H PRN PRN Dyspnea, wheezing Aspirin 81 mg 03/09/25 08:00 03/09/25 08:53 Aspirin 81 Mg Tab.Chew PO 81 mg BREAKFAST GEORGIE Administration Atorvastatin Calcium 10 mg 03/09/25 22:00 Atorvastatin Calcium 10 Mg Tablet PO 2200 GEORGIE Enoxaparin Sodium 40 mg 03/09/25 10:00 03/09/25 11:52 Enoxaparin 40 Mg/0.4 Ml Syringe SC 40 mg DAILY GEORGIE Administration Guaifenesin 20 ml 03/08/25 23:49 Guaifenesin 10 Ml Udc (200mg/10ml) PO Q4H PRN PRN COUGH Hydralazine HCl 5 mg 03/08/25 23:49 Hydralazine 20 Mg/Ml Vial IV 03/09/25 23:49 Q30M PRN maintain BP parameters with HR <60 Sodium Chloride 250 mls @ 15 mls/hr 03/08/25 23:49 IV .[id number] PRN Saline Flush Sodium Chloride 250 mls @ 15 mls/hr 03/08/25 23:49 IV .[id number] PRN Additional IVPB Infusion Labetalol HCl 10 - 20 mg 03/08/25 23:49 Labetalol 20 Mg/4 Ml Vial IV 03/09/25 23:49 Q10M PRN PRN maintain BP parameters with HR >/=60 Levetiracetam 500 mg 03/08/25 23:49 03/09/25 11:52 Levetiracetam 500 Mg Tablet PO 500 mg BID GEORGIE Administration Lorazepam 0.5 - 1 mg 03/09/25 02:03 03/09/25 09:20 Lorazepam 0.5 Mg Tablet PO 0.5 mg X1 PRN Administration Anxiety with MRI Melatonin 3 mg 03/08/25 23:49 Melatonin 3 Mg Tablet PO QHS PRN PRN INSOMNIA Nutritional Formula (Lactose Free) 120 ml 03/09/25 17:00 Ensure Plus High Protein 120 Ml Liquid PO TIDCM GEORGIE Ondansetron HCl 4 mg 03/08/25 23:49 Ondansetron 4 Mg/2 Ml Vial IV Q8H PRN PRN NAUSEA/VOMITING Prochlorperazine Edisylate 5 mg 03/08/25 23:49 Prochlorperazine 10 Mg/2 Ml Vial IV Q4H PRN PRN Breakthrough Nausea/Vomiting Senna/Docusate Sodium 2 tablet 03/08/25 23:49 Senna/Docusate Sodium 1 Tablet PO BID PRN PRN Constipation Sertraline HCl 100 mg 03/09/25 10:00 03/09/25 11:52 Sertraline 100 Mg Tablet PO 100 mg DAILY GEORGIE Administration Sodium Chloride 10 - 40 ml 03/08/25 23:49 0.9% Saline Lock 10 Ml Syringe IV UD PRN SALINE FLUSH NIHSS NIHSS Nursing Documentation NIHSS Nursing Documentation: NIH Stroke Scale Start: 03/08/25 21:20 Freq: Status: Discharge Protocol: Activity Type Activity Date Activity User E-sign Co-sign Detail Recorded Client Recorded Date Recorded By Document 03/08/25 21:20 DEEPAK [id number] 03/08/25 21:26 DEEPAK 03/08/25 21:20 NIH Stroke Scale [NIHSS] A score of 0 is normal or asymptomatic . Total possible score is 42. Inpatient: RN or Physician to activate a stroke alert for onset of new stroke symptoms or with NIHSS increase >/= 3 points. Following change in neurological status, NIHSS will be performed per physician order or more frequently PRN. -1a. Level of Consciousness 0 - Alert; keenly responsive -1b. LOC Questions 1 - Answers ONE question correctly -1c. LOC Commands 0 - Performs BOTH tasks correctly -2. Best Gaze 0 - Normal -3. Visual 0 - No visual loss -4. Facial Palsy 0 - Normal symmetrical movements -5a. Left Arm 0 - No drift; arm holds 90 ( or 45) degrees for full 10 seconds -5b. Right Arm 0 - No drift; arm holds 90 ( or 45) degrees for full 10 seconds -6a. Left Leg 0 - No drift; leg holds 30- degree position for full 5 seconds -6b. Right Leg 0 - No drift; leg holds 30- degree position for full 5 seconds -7. Limb Ataxia 0 - Absent -8. Sensory 0 - Normal; no sensory loss -9. Best Language 1 - Mild-to- moderate aphasia; -10. Dysarthria 1 = Mild-to- moderate dysarthria; -11. Extinction and Inattention 0 - No abnormality -Total 3 Query Text:A score of 0 is normal or asymptomatic. Total possible score is 42 . ED: Notify Physician for NIHSS increase by > / = 3 points. Inpatient: RN or Physician to activate a stroke alert for NIHSS increase of > / = 3 points. NIHSS: Ischemic Stroke/TIA Start: 03/08/25 23:49 Text: For PCU Patients: NIH and Neuro Check every 4 Status: Complete hours, PRN and with change in RN caregiver. Freq: [id number] Protocol: Activity Type Activity Date Activity User E-sign Co-sign Detail Recorded Client Recorded Date Recorded By Document 03/09/25 11:15 AD [id number] 03/09/25 11:48 AD 03/09/25 11:15 -1a. Level of Consciousness 0 - Alert; keenly responsive -1b. LOC Questions 1 - Answers ONE question correctly -1c. LOC Commands 1 - Performs ONE task correctly -2. Best Gaze 0 - Normal -3. Visual 0 - No visual loss -4. Facial Palsy 0 - Normal symmetrical movements -5a. Left Arm 0 - No drift; arm holds 90 ( or 45) degrees for full 10 seconds -5b. Right Arm 0 - No drift; arm holds 90 ( or 45) degrees for full 10 seconds -6a. Left Leg 0 - No drift; leg holds 30- degree position for full 5 seconds -6b. Right Leg 0 - No drift; leg holds 30- degree position for full 5 seconds -7. Limb Ataxia 0 - Absent -8. Sensory 0 - Normal; no sensory loss -9. Best Language 1 - Mild-to- moderate aphasia; -10. Dysarthria 1 = Mild-to- moderate dysarthria; -11. Extinction and Inattention 0 - No abnormality -Total 4 Query Text:A score of 0 is normal or asymptomatic. Total possible score is 42 . ED: Notify Physician for NIHSS increase by > / = 3 points. Inpatient: RN or Physician to activate a stroke alert for NIHSS increase of > / = 3 points. Coma Scale [Assess] -Eye Opening Spontaneous -Motor Obeys Commands -Verbal Confused [Total] -Coma Scale Total 14
[2025-03-09 15:15] VITALS: BP 102/65; PULSE 81; RESP 16; TEMP 36.1; O2SAT 100
--- NOTE | 2025-03-09 16:00 | CASEMGMT ---
CAROLYN WONG NOTE: Pt has hx of CVA and chronic aphasia. MRI this admission is negative for acute CVA. Per Dr Amado, he planned to discharge pt home today. Noted pt is and there are no contacts listed on pt's chart. PT/OT evals were reviewed from today. Pt ambulated w/CGA 120-150 ft. They noted pt w/limited word finding and questionable historian & that pt told them she lives w/a friend. Also noted in pt's chart that pt lives alone. PT recommended additional therapy. RN CM to room earlier today to discuss discharge planning. RN CM introduced self and role. Pt was resting in bed. Noted pt w/significant aphasia and very difficult word finding w/sentences scrambled and pt unable to answer most questions. When asked if pt lives alone she stated, Friend. I don't remember her. I go with. She lives w/my sister. What is her name. Darve. No. Georgie. I live w/y my friend. Let's see. Because of would call my. Pt unable to state any family members names or phone numbers. Pt did give RN CM permission to check her purse for her phone. No phone found. Pt stated to RN MARVIN that it was all left there and able to communicate w/fragmented sentence that when she left w/the squad that it was left @ home. CAROLYN WONG attempted to have pt communicate via writing w/a pen and paper. Pt unable to even hold the pen correctly to write. Per Cristina LEON, pt is forgetful and verbal cuing needed & she states from her observations today she is concerned w/pt discharging home alone. Noted in pt's chart that pt is active w/[facility]. Call placed to [facility] on-call nurse, Debora. She confirmed pt is active w/[facility] and receives ST. She states she is not familiar w/pt to verify her baseline cognitive status/functioning level. She was able to provide this RN CM w/pt's emergency contact, Georgie Pito, ( . Home: ) who is pt's cousin and was living in [place] but is planning to move to [place]. Per Debora, KIERA completed HCPOA with pt, naming Georgie as her agent. This document is not on file in [email or web address]. Georgie's contact info added to pt's contact list. Call placed to pt's cousin, Georgie. Georgie states pt does live alone, stating pt's January 2025. Pt does not have any children. Georgie confirms she lives in [place] and is planning on moving to [place] in Jun. She states she and pt have been very close for about 30 yrs and that pt is like a sister to me. After conversation w/this RN MARVIN she states she may need to move sooner than Jun. She states she calls pt about every other day and talks w/her on the phone. She states she last spoke w/pt on Tue. She states pt's baseline is Pretty good. She states when she talks w/her she can tell if she is getting stressed or tired, stating her communication ability worsens. She states pt still drives occasionally and will drive to the grocery store and to [employer]. Pt prepares her own meals and manages her own medications @ baseline, stating, She knows exactly what and when to take them. CAROLYN WONG gave pt the phone and she spoke to Georgie. After their conversation CAROLYN WONG again spoke w/Georgie who states she feels pt is communication close to her baseline. Inquired if Georgie has any contact info for any other family members or friends in [place]. She states pt does have a sister, Briseyda Sotelo, but she does not know her phone #. Briseyda's address is: [address] [place] [address], [place] [address]. Georgie states that Briseyda does not drive, but Briseyda's son is able to drive. This address was looked up on-line and the following phone # found: [phone]. CAROLYN WONG placed call to this #. Message came stating the customer called is unavailable at this time. VM left asking for return call to this RN MRAVIN. Georgie states she does not have any other names or numbers of any other of pt's family or friends. Georgie states she is not aware of pt completing AD naming her as HCPOA. Pt's neighbor, Theresa ([phone]) called into the hospital and states she has a martell to pt's home and is looking after pt's dog. CAROLYN WONG did speak to Theresa and inquired if she has any phone #'s or contact info for any of pt's family or other friends. She does not. She states she did find pt's phone in her home but it is . She tried to locate a battery recharger for it but has not been able to find one that works and therefore she cannot turn it on to look for other contact #'s. She states she can take pt home when she is discharged and make sure she gets into her home safely, but she states she is concerned for pt being able to take care of her dog properly and over-all is just concerned for pt. RN MARVIN made aware by Cristina LEON, that pt's nephew, Quique, called in this AM, stating he checks in on pt often/about every other day and that he would be either calling [facility] or coming into [facility] later today. Dr Campos was notified of all of the above, concerns w/pt discharging home alone as it is difficult to determine if pt is @ her baseline, and that we are awaiting call or visit from pt's nephew later today. Cristina LEON, and supercharge repair supervisorKeyonna, aware of above. If Quique calls or comes in today, staff to speak w/him to determine if pt is @ her baseline. ORTIZ unable to be completed today d/t unable to determine pt's orientation at this time & no other family members available at this time. Georgie Sheldon (pt's cousin) Home: Briseyda Sotelo (pt's sister) [address] [place] [address] Possible phone # is: [phone]. VM was left. No return call. Quique (pt's nephew) No contact info Thersea Red (pt's neighbor) [phone] She has a martell to pt's home and is looking after pt's dog. She is willing to take pt home @ dc, if needed. DC PLAN: ALEXD Ayo BELLEN CAROLYN WONG
[2025-03-09 16:52] VITALS: BMI 22.8
[2025-03-09] MEDS: Ensure Plus High Protein 120 ML LIQUID PO (18:18)
--- NOTE | 2025-03-09 18:29 | PCM.PN.HOSP ---
Reason for Visit Reason for Visit: Diagnoses Encephalopathy, unspecified (03/08/25) Subjective Subjective Patient was seen and examined today, she has expressive aphasia which appears to be chronic, we have been having difficulty contacting a relative concerning the patient, the patient's MRI did not show a new stroke but there is nobody to transport the patient home and I am unsure the patient has help at home. I have elected to keep the patient here until we can contact a family member regarding follow-up care for the patient and transport home. Objective Data Objective Data Vital Signs: Vital Signs Temp Pulse Resp BP Pulse Ox O2 Del Method 96.9 F L 81 16 102/65 100 Room Air 03/09/25 15:15 03/09/25 15:15 03/09/25 15:15 03/09/25 15:15 03/09/25 15:15 03/09/25 15:15 Oxygen Delivery Method Room Air Weight: 54.7 kg Body Mass Index (BMI) 22.8 Intake & Output: Intake and Output for Last 24 Hours 03/07/25 03/08/25 03/09/25 23:59 23:59 23:59 Intake Total 0 / 0 540 / 540 Output Total 0 / 0 0 / 0 Balance 0 / 0 540 / 540 Lab / Micro Data 03/09/25 06:41 03/09/25 06:41 Labs: Laboratory Results - last 24 hr 03/08/25 21:16: WBC 9.2, RBC 4.61, Hgb 13.2, Hct 39.0, MCV 84.6, MCH 28.6, MCHC 33.8, RDW Std Deviation 45.2 H, RDW Coeff of Edi 14.8 H, Plt Count 252, MPV 9.5, Immature Gran % (Auto) 0.300, Neut % (Auto) 77.8 H, Lymph % (Auto) 15.2 L, [place] % (Auto) 6.0, Eos % (Auto) 0.3, Baso % (Auto) 0.4, Absolute Neuts (auto) 7.1, Absolute Lymphs (auto) 1.40, Nucleated RBC % 0, PT 14.0, INR 1.1, Sodium 139, Potassium 3.8, Chloride 104, Carbon Dioxide 21.5, Anion Gap 14, BUN 15, Creatinine 0.91, Estim Creat Clear Calc 35.97 L, Est GFR (MDRD) Non-Af 63, BUN/Creatinine Ratio 16.7, Glucose 95, Calcium 9.8, Magnesium 2.1 03/08/25 23:00: Urine Color Straw, Urine Clarity Clear, Urine pH 7.0, Ur Specific [place] 1.010, Urine Protein 30 H, Urine Glucose (UA) Normal, Urine Ketones 5 H, Urine Occult Blood Negative, Urine Nitrite Negative, Urine Bilirubin Negative, Urine Urobilinogen Normal, Ur Leukocyte Esterase Negative, Urine RBC 0 SEEN, Urine WBC 0 SEEN, Ur Squamous Epith Cells 0-5 SEEN, Urine Bacteria 0 SEEN, Urine Mucus 0 SEEN 03/09/25 06:41: WBC 7.2, RBC 4.26, Hgb 12.1, Hct 35.8 L, MCV 84.0, MCH 28.4, MCHC 33.8, RDW Std Deviation 45.9 H, RDW Coeff of Edi 15.0 H, Plt Count 211, MPV 9.8, Immature Gran % (Auto) 0.300, Neut % (Auto) 66.5, Lymph % (Auto) 24.6, [place] % (Auto) 7.2, Eos % (Auto) 0.8, Baso % (Auto) 0.6, Absolute Neuts (auto) 4.8, Absolute Lymphs (auto) 1.77, Nucleated RBC % 0, Sodium 141, Potassium 3.9, Chloride 108, Carbon Dioxide 21.2, Anion Gap 11, BUN 13, Creatinine 0.87, Estim Creat Clear Calc 37.62 L, Est GFR (MDRD) Non-Af 66, BUN/Creatinine Ratio 14.4, Glucose 107 H, Hemoglobin A1c 5.7, Calcium 9.2, Total Bilirubin 0.45, AST 23, ALT 10, Alkaline Phosphatase 89, Total Protein 6.6, Albumin 3.9, Globulin 2.7, Albumin/Globulin Ratio 1.4, Triglycerides 83, Cholesterol 166, LDL Cholesterol, Calc 84, VLDL Cholesterol 17, HDL Cholesterol 66, Cholesterol/HDL Ratio 2.52, TSH 2.840 Radiography Diagnostic Testing: Radiology Impression Head/Neck CTA 03/08/25 21:32 IMPRESSION: 1. No acute intracranial abnormality. Atrophy and chronic ischemic changes as above. 2. Moderate short-segment stenosis of the proximal right ICA (up to 70%). 3. No large vessel occlusion of the [id number]. No sizable aneurysm. Reading Location: [facility] Chest X-Ray 03/08/25 22:40 IMPRESSION: No acute cardiopulmonary abnormality. Mild blunting of the right costophrenic angle is not significantly changed and may be the result of atelectasis or scarring, with pleural effusion less likely. Reading Location: [id number] Brain MRI 03/09/25 10:00 IMPRESSION: Old left parietal infarct. No restricted diffusion or other indication of acute pro Reading [facility] Physical Exam Narrative alert, no apparent distress and healthy appearing Constitutional Narrative: Patient has expressive aphasia General Appearance: cooperative, well kempt and well developed Orientation / Consciousness: awake, oriented to person and oriented to place HEENT normocephalic, head/scalp atraumatic and moist oral mucous membranes Eyes PERRL, EOMs intact bilaterally and conjunctivae normal Neck supple, no JVD and thyroid normal General: trachea midline Resp normal respiratory effort, no retractions, no use of accessory muscles and clear to auscultation bilaterally Auscultation: Negative for rales, rhonchi or wheezes Cardio regular rate, regular rhythm, S1 normal heart sound, S2 normal heart sound, no murmurs, no rub and no gallops GI normal to inspection, nondistended, normoactive bowel sounds, soft to palpation, non-tender and non-distended Extremity no clubbing, cyanosis or edema Skin no rashes or lesions noted General Skin Exam: no breakdown Neuro CN's II-XII intact bilaterally, moves all extremities, no focal motor deficits and no sensory deficits noted Neuro Narrative: Patient has expressive aphasia Sensorium / Orientation: awake, alert, oriented to person and oriented to place Psych affect normal Assessment & Plan Assessment/Plan (1) Encephalopathy: PLAN: Plan 1. Encephalopathy-etiology unclear at this time, continue supportive care #2 cerebrovascular disease-no evidence for recent stroke-patient will continue to be seen by PT and OT, patient remains on a baby aspirin and a statin #3 seizure disorder-patient will remain on her current medication #4 essential hypertension-patient's blood pressure appears to be under control at this time, adjustments will be made with her medications, she is currently not on a blood pressure medication Total clinical time spent by myself addressing the patient's medical issues, reviewing all of her data, and collaborating with patient's care team: 35 minutes Charges/Coding Visit Charges Inpatient E&M: 60104 Subs Hosp L2 NIHSS NIHSS Nursing Documentation NIHSS Nursing Documentation: NIH Stroke Scale Start: 03/08/25 21:20 Freq: Status: Discharge Protocol: Activity Type Activity Date Activity User E-sign Co-sign Detail Recorded Client Recorded Date Recorded By Document 03/08/25 21:20 DEEPAK [id number] 03/08/25 21:26 DEEPAK 03/08/25 21:20 NIH Stroke Scale [NIHSS] A score of 0 is normal or asymptomatic . Total possible score is 42. Inpatient: RN or Physician to activate a stroke alert for onset of new stroke symptoms or with NIHSS increase >/= 3 points. Following change in neurological status, NIHSS will be performed per physician order or more frequently PRN. -1a. Level of Consciousness 0 - Alert; keenly responsive -1b. LOC Questions 1 - Answers ONE question correctly -1c. LOC Commands 0 - Performs BOTH tasks correctly -2. Best Gaze 0 - Normal -3. Visual 0 - No visual loss -4. Facial Palsy 0 - Normal symmetrical movements -5a. Left Arm 0 - No drift; arm holds 90 ( or 45) degrees for full 10 seconds -5b. Right Arm 0 - No drift; arm holds 90 ( or 45) degrees for full 10 seconds -6a. Left Leg 0 - No drift; leg holds 30- degree position for full 5 seconds -6b. Right Leg 0 - No drift; leg holds 30- degree position for full 5 seconds -7. Limb Ataxia 0 - Absent -8. Sensory 0 - Normal; no sensory loss -9. Best Language 1 - Mild-to- moderate aphasia; -10. Dysarthria 1 = Mild-to- moderate dysarthria; -11. Extinction and Inattention 0 - No abnormality -Total 3 Query Text:A score of 0 is normal or asymptomatic. Total possible score is 42 . ED: Notify Physician for NIHSS increase by > / = 3 points. Inpatient: RN or Physician to activate a stroke alert for NIHSS increase of > / = 3 points. NIHSS: Ischemic Stroke/TIA Start: 03/08/25 23:49 Text: For PCU Patients: NIH and Neuro Check every 4 Status: Complete hours, PRN and with change in RN caregiver. Freq: [id number] Protocol: Activity Type Activity Date Activity User E-sign Co-sign Detail Recorded Client Recorded Date Recorded By Document 03/09/25 11:15 AD [id number] 03/09/25 11:48 AD 03/09/25 11:15 -1a. Level of Consciousness 0 - Alert; keenly responsive -1b. LOC Questions 1 - Answers ONE question correctly -1c. LOC Commands 1 - Performs ONE task correctly -2. Best Gaze 0 - Normal -3. Visual 0 - No visual loss -4. Facial Palsy 0 - Normal symmetrical movements -5a. Left Arm 0 - No drift; arm holds 90 ( or 45) degrees for full 10 seconds -5b. Right Arm 0 - No drift; arm holds 90 ( or 45) degrees for full 10 seconds -6a. Left Leg 0 - No drift; leg holds 30- degree position for full 5 seconds -6b. Right Leg 0 - No drift; leg holds 30- degree position for full 5 seconds -7. Limb Ataxia 0 - Absent -8. Sensory 0 - Normal; no sensory loss -9. Best Language 1 - Mild-to- moderate aphasia; -10. Dysarthria 1 = Mild-to- moderate dysarthria; -11. Extinction and Inattention 0 - No abnormality -Total 4 Query Text:A score of 0 is normal or asymptomatic. Total possible score is 42 . ED: Notify Physician for NIHSS increase by > / = 3 points. Inpatient: RN or Physician to activate a stroke alert for NIHSS increase of > / = 3 points. Coma Scale [Assess] -Eye Opening Spontaneous -Motor Obeys Commands -Verbal Confused [Total] -Coma Scale Total 14
[2025-03-09 21:40] VITALS: BP 107/69; PULSE 73; RESP 17; TEMP 36.6; O2SAT 96
[2025-03-09] MEDS: Atorvastatin Calcium 10 MG Tablet PO (21:41)
[2025-03-09] MEDS: 0.9% Saline Lock 10 ML Syringe IV (21:42)
[2025-03-09 21:53] VITALS: BMI 22.8
[2025-03-10 04:25] VITALS: BP 134/68; PULSE 64; RESP 16; TEMP 36.7; O2SAT 96
[2025-03-10 06:00] VITALS: BMI 23.3
[2025-03-10 09:54] VITALS: BP 129/57; PULSE 68; RESP 16; TEMP 36.3; O2SAT 100
[2025-03-10] MEDS: Ensure Plus High Protein 120 ML LIQUID PO (09:59)
[2025-03-10] MEDS: Sertraline 100 MG Tablet PO (10:02)
[2025-03-10] MEDS: levETIRAcetam 500 MG Tablet PO ×2 (10:02→22:02)
[2025-03-10] MEDS: Aspirin 81 MG TAB.CHEW PO (10:02)
[2025-03-10] MEDS: Enoxaparin 40 MG/0.4 ML Syringe SC (10:02)
--- NOTE | 2025-03-10 14:20 | PCM.PN.HOSP ---
Reason for Visit Reason for Visit: Diagnoses Encephalopathy, unspecified (03/08/25) Subjective Subjective Patient was seen and examined today, we still have not heard from any of the patient's family or friends to provide transportation for the patient to go home. Objective Data Objective Data Vital Signs: Vital Signs Temp Pulse Resp BP Pulse Ox O2 Del Method 97.3 F L 68 16 129/57 H 100 Room Air 03/10/25 09:54 03/10/25 09:54 03/10/25 09:54 03/10/25 09:54 03/10/25 09:54 03/10/25 10:00 Oxygen Delivery Method Room Air Weight: 56.1 kg Body Mass Index (BMI) 23.3 Intake & Output: Intake and Output for Last 24 Hours 03/08/25 03/09/25 03/10/25 23:59 23:59 23:59 Intake Total 0 / 0 1780 / 1780 100 / 100 Output Total 0 / 0 0 / 0 Balance 0 / 0 1780 / 1780 100 / 100 Lab / Micro Data 03/09/25 06:41 03/09/25 06:41 Physical Exam Const alert, no apparent distress and healthy appearing Constitutional Narrative: Patient has expressive aphasia General Appearance: cooperative, well kempt and well developed Orientation / Consciousness: awake, oriented to person and oriented to place HEENT normocephalic, head/scalp atraumatic and moist oral mucous membranes Eyes PERRL, EOMs intact bilaterally and conjunctivae normal Neck supple, no JVD and thyroid normal General: trachea midline Resp normal respiratory effort, no retractions, no use of accessory muscles and clear to auscultation bilaterally Auscultation: Negative for rales, rhonchi or wheezes Cardio regular rate, regular rhythm, S1 normal heart sound, S2 normal heart sound, no murmurs, no rub and no gallops GI normal to inspection, nondistended, normoactive bowel sounds, soft to palpation, non-tender and non-distended Extremity no clubbing, cyanosis or edema Skin no rashes or lesions noted General Skin Exam: no breakdown Neuro CN's II-XII intact bilaterally, moves all extremities, no focal motor deficits and no sensory deficits noted Neuro Narrative: Patient has expressive aphasia Sensorium / Orientation: awake, alert, oriented to person and oriented to place Psych affect normal Assessment & Plan Assessment/Plan (1) Encephalopathy: PLAN: Plan 1. Encephalopathy-etiology unclear at this time, neurology has requested the patient have an EEG #2 cerebrovascular disease-no evidence for recent stroke-patient will continue to be seen by PT and OT, patient remains on a baby aspirin and a statin #3 seizure disorder-patient will remain on her current medication #4 essential hypertension-patient's blood pressure appears to be under control at this time, adjustments will be made with her medications, she is currently not on a blood pressure medication Total clinical time spent by myself addressing the patient's medical issues, reviewing all of her data, and collaborating with patient's care team: 35 minutes Charges/Coding Visit Charges Inpatient E&M: 09934 Subs Hosp L2 NIHSS NIHSS Nursing Documentation NIHSS Nursing Documentation: NIH Stroke Scale Start: 03/08/25 21:20 Freq: Status: Discharge Protocol: Activity Type Activity Date Activity User E-sign Co-sign Detail Recorded Client Recorded Date Recorded By Document 03/08/25 21:20 DEEPAK [id number] 03/08/25 21:26 DEEPAK 03/08/25 21:20 NIH Stroke Scale [NIHSS] A score of 0 is normal or asymptomatic . Total possible score is 42. Inpatient: RN or Physician to activate a stroke alert for onset of new stroke symptoms or with NIHSS increase >/= 3 points. Following change in neurological status, NIHSS will be performed per physician order or more frequently PRN. -1a. Level of Consciousness 0 - Alert; keenly responsive -1b. LOC Questions 1 - Answers ONE question correctly -1c. LOC Commands 0 - Performs BOTH tasks correctly -2. Best Gaze 0 - Normal -3. Visual 0 - No visual loss -4. Facial Palsy 0 - Normal symmetrical movements -5a. Left Arm 0 - No drift; arm holds 90 ( or 45) degrees for full 10 seconds -5b. Right Arm 0 - No drift; arm holds 90 ( or 45) degrees for full 10 seconds -6a. Left Leg 0 - No drift; leg holds 30- degree position for full 5 seconds -6b. Right Leg 0 - No drift; leg holds 30- degree position for full 5 seconds -7. Limb Ataxia 0 - Absent -8. Sensory 0 - Normal; no sensory loss -9. Best Language 1 - Mild-to- moderate aphasia; -10. Dysarthria 1 = Mild-to- moderate dysarthria; -11. Extinction and Inattention 0 - No abnormality -Total 3 Query Text:A score of 0 is normal or asymptomatic. Total possible score is 42 . ED: Notify Physician for NIHSS increase by > / = 3 points. Inpatient: RN or Physician to activate a stroke alert for NIHSS increase of > / = 3 points. NIHSS: Ischemic Stroke/TIA Start: 03/08/25 23:49 Text: For PCU Patients: NIH and Neuro Check every 4 Status: Complete hours, PRN and with change in RN caregiver. Freq: [id number] Protocol: Activity Type Activity Date Activity User E-sign Co-sign Detail Recorded Client Recorded Date Recorded By Document 03/09/25 11:15 AD [id number] 03/09/25 11:48 AD 03/09/25 11:15 -1a. Level of Consciousness 0 - Alert; keenly responsive -1b. LOC Questions 1 - Answers ONE question correctly -1c. LOC Commands 1 - Performs ONE task correctly -2. Best Gaze 0 - Normal -3. Visual 0 - No visual loss -4. Facial Palsy 0 - Normal symmetrical movements -5a. Left Arm 0 - No drift; arm holds 90 ( or 45) degrees for full 10 seconds -5b. Right Arm 0 - No drift; arm holds 90 ( or 45) degrees for full 10 seconds -6a. Left Leg 0 - No drift; leg holds 30- degree position for full 5 seconds -6b. Right Leg 0 - No drift; leg holds 30- degree position for full 5 seconds -7. Limb Ataxia 0 - Absent -8. Sensory 0 - Normal; no sensory loss -9. Best Language 1 - Mild-to- moderate aphasia; -10. Dysarthria 1 = Mild-to- moderate dysarthria; -11. Extinction and Inattention 0 - No abnormality -Total 4 Query Text:A score of 0 is normal or asymptomatic. Total possible score is 42 . ED: Notify Physician for NIHSS increase by > / = 3 points. Inpatient: RN or Physician to activate a stroke alert for NIHSS increase of > / = 3 points. Coma Scale [Assess] -Eye Opening Spontaneous -Motor Obeys Commands -Verbal Confused [Total] -Coma Scale Total 14
[2025-03-10 16:00] VITALS: BP 140/70; PULSE 72; RESP 16; TEMP 36.6; O2SAT 98
[2025-03-10 17:00] VITALS: BMI 23.3
[2025-03-10 22:02] VITALS: BP 131/75; PULSE 70; RESP 16; TEMP 36.7; O2SAT 98
[2025-03-10] MEDS: Atorvastatin Calcium 10 MG Tablet PO (22:02)
[2025-03-11 00:20] VITALS: BMI 23.3
[2025-03-11 03:27] VITALS: BP 116/63; PULSE 72; RESP 16; TEMP 36.1; O2SAT 99
[2025-03-11 05:56] VITALS: BMI 23.5
--- NOTE | 2025-03-11 09:51 | CASEMGMT ---
KIERA noted patient's sister Briseyda's name and phone number are now listed on patient's face sheet. There was a nephew Quique that had called into [facility] on Tuesday, but his contact information is not known. Quique stated he checks on patient often. KIERA called Briseyda. Introduced self and role at [facility]. Briseyda confirmed Quique is her son and he does check on patient regularly. However, Quique is on vacation until the end of the week. For future reference Quique's cell phone number is [phone]. Briseyda stated she does not drive as she has advanced macular degeneration. KIERA asked Briseyda if there are any other caregivers coming into the home to assist patient. Briseyda said home health is seeing patient. KIERA explained to Briseyda that [facility] is trying to determine if patient is at her baseline or not. [facility] is also trying to determine if patient is safe to go home alone or not. Briseyda asked that SW keep her updated. KIERA also attempted to call patient's home health speech therapist Marlin. A message was left for Marlin requesting a return call. Patient is doing well with PT and OT so patient's insurance will not approve her to go to a intermediate facility short term. The issue is patient's speech and cognition and whether or not patient is safe to be at home alone. Klarissa Meyer MSW RAFAEL
[2025-03-11 11:07] VITALS: BP 140/65; PULSE 68; RESP 16; TEMP 36.4; O2SAT 99
[2025-03-11] MEDS: levETIRAcetam 500 MG Tablet PO (11:10)
[2025-03-11] MEDS: Aspirin 81 MG TAB.CHEW PO (11:10)
[2025-03-11] MEDS: Enoxaparin 40 MG/0.4 ML Syringe SC (11:10)
[2025-03-11] MEDS: Sertraline 100 MG Tablet PO (11:11)
--- NOTE | 2025-03-11 11:52 | CASEMGMT ---
ANGEL Spoke with pts family member/HC POA, Georgie Lopez, to complete ORTIZ form. ORTIZ form and its content were verbally explained and agents questions were answered to the best of my ability.? Agents voiced understanding and signed ORTIZ form.? Copy of ORTIZ form placed in pts room and original placed in patient's chart. Bere Vincent, Discharge Planning Asst
--- NOTE | 2025-03-11 12:26 | CASEMGMT ---
KIERA called patient's cousin Georgie in [place]. Georgie said she spoke with patient Tuesday and Tuesday and she feels patient sounds like she is at her baseline. KIERA let Georgie know that the physician is planning on discharging patient today. Georgie said she will continue to call and check on patient daily. Georgie said she is continuing to work on moving to [place] sooner than June. KIERA notified Georgie that patient's nephew normally checks on her also, but he is out of town for the week. Georgie thanked KIERA for the update. Georgie asked SW to let patient know she will call her this evening. KIERA went to patient's room. Introduced self and role at [facility]. KIERA told patient that the physician is going to discharge her home today. Patient was aware of this information. KIERA told patient SW spoke with Georgie and she said she will call her this evening. KIERA asked patient if it is okay if SW calls her neighbor Theresa as she said she could picking crew supervisor patient. Patient said that would be fine. KIERA called patient's sister Briseyda and let her know that the physician is going to discharge patient home today. [facility] will resume patient's home health. Briseyda said she will call patient regularly to check on her. KIERA called patient's neighbor Theresa and she said she can picking crew supervisor patient today. KIERA told Theresa QURESHI will have nurse or someone call her when patient is ready to go. Theresa said that would be fine. KIERA notified physician patient can be discharged. Klarissa HALL
--- NOTE | 2025-03-11 12:57 | CASEMGMT ---
CAROLYN WONG called [facility], resumption of care ordered placed on Tuesday with the addition of PT and SW. Per [facility], they are able to add services and AMIRA will be 03/12/25. Added to DC plan.
--- NOTE | 2025-03-11 15:58 | DCINST_ITS ---
Discharge Instructions Diet Discharge Diet: No restrictions DC O2, CPAP, BIPAP needs Home O2 Discharge instructions: No Dressing / Incision Discharge Activity: Return to Normal Activity Weight Bearing Status: Full weight bearing Follow Up Care Test Results: Test results from this visit will be discussed in further detail at your follow- up appointment, if applicable. Discharge Plan Admission Admit Date/Time: 03/08/25 22:49 Primary Reason for Your Visit: altered mental status Attending Provider: Jarvis Amado Primary Care Provider: Clyde Downing Consulting Providers: Charoltte Pennington; Adela Flynn; James Sevilla; Amy Oconnor; Emerita Hernández; Taina Lozano; Kassie Leslie; Matty Kaminski; Jeri Gay; KINJAL BOYER; Robert Everett; Brooke Jordan Discharge Orders/Prescriptions Prescriptions: New rosuvastatin [Crestor] 10 mg tablet 10 mg PO DAILY Qty: 30 0RF Continued levetiracetam 500 mg tablet 500 mg PO BID sertraline 100 mg tablet 100 mg PO DAILY losartan 50 mg tablet 50 mg PO DAILY aspirin 81 mg Tablet,Chewable 81 mg PO BREAKFAST 30 Days Qty: 30 0RF Discontinued rosuvastatin 5 mg tablet 5 mg PO DAILY Referrals / Follow Up: Clyde Downing MD [Primary Care Provider] - Within 2 Weeks Disposition Disposition (needs filled in before D/C Order can be placed): Home Health Service
--- NOTE | 2025-03-11 16:15 | DS.PCM_ITS ---
Providers Date of Admission: 03/08/25 Date of Discharge: 03/11/25 Primary Care Physician: Dr. Clyde Downing MD Consultations 03/08/25 23:49 Consult: Tele-Neurology Routine Consulting Provider: [facility] Reason for Consult: Acute Ischemic Stroke/TIA EMERGENT Consult: No MD Notified: Yes Date Notified: 03/09/25 Time Notified: 01:43 Method of Notification: Answering Service Nursing Unit Staff Notify [facility] of Tele-Neurology Consult: Yes Reason For Visit: ? CVA, AMS, HX PRIOR CVA Diagnosis Discharge Diagnosis (1) Encephalopathy: Status: Acute Code(s): G93.40 - Encephalopathy, unspecified Plan 1. Encephalopathy-etiology unclear at this time, neurology has requested the patient have an EEG #2 cerebrovascular disease-no evidence for recent stroke-patient will continue to be seen by PT and OT, patient remains on a baby aspirin and a statin #3 seizure disorder-patient will remain on her current medication #4 essential hypertension-patient's blood pressure appears to be under control at this time, adjustments will be made with her medications, she is currently not on a blood pressure medication Total clinical time spent by myself addressing the patient's medical issues, reviewing all of her data, and collaborating with patient's care team: 35 minutes Medications at Discharge Home Medications losartan 50 mg tablet 50 mg PO DAILY blood pressure 02/07/24 aspirin 81 mg chewable tablet 81 mg PO BREAKFAST heart health 30 days #30 tabs 02/08/24 levetiracetam 500 mg tablet 500 mg PO BID seizures 10/27/24 sertraline 100 mg tablet 100 mg PO DAILY mental health 10/27/24 rosuvastatin 10 mg tablet (Crestor) 10 mg PO DAILY #30 tabs 03/11/25 Hospital Course Operations None Procedures Electroencephalogram Summary of Care Provided Minutes Spent on Discharge: 32 Hospital Course: C4-year-old white female was seen in the emergency room at [facility] after being brought from home by squad due to reported confusion and expressive aphasia. It appeared the patient's friend called EMS for transport to the hospital, she lives alone. Evaluation in the emergency room showed the patient to have expressive aphasia, it was noted that the patient had a history of stroke and history of seizure disorder. CTA of the head and neck showed no large vessel occlusion, CT of the brain showed atrophy and chronic ischemic changes with a large area of encephalomalacia involving the left temporal parietal lobe consistent with a chronic insult. Patient's NIH score was 1, patient was placed in observation status on PCU, she was seen by PT OT and speech therapy. Patient had some initial confusion when she was admitted, etiology was not clear. Brain MRI was obtained which showed a left parietal infarct there was no evidence of acute stroke. There was difficulty in locating transportation for the patient to return home and there was a question whether the patient was safe in returning home, PT and OT continue to work with the patient as well as speech therapy, it was felt that the patient's expressive aphasia was chronic in nature and it was no worse than her usual baseline. On 03/11/2025, patient was seen and examined:alert, no apparent distress and healthy appearing Constitutional Narrative: Patient has expressive aphasia General Appearance: cooperative, well kempt and well developed Orientation / Consciousness: awake, oriented to person and oriented to place HEENT normocephalic, head/scalp atraumatic and moist oral mucous membranes Eyes PERRL, EOMs intact bilaterally and conjunctivae normal Neck supple, no JVD and thyroid normal General: trachea midline Resp normal respiratory effort, no retractions, no use of accessory muscles and clear to auscultation bilaterally Auscultation: Negative for rales, rhonchi or wheezes Cardio regular rate, regular rhythm, S1 normal heart sound, S2 normal heart sound, no murmurs, no rub and no gallops GI normal to inspection, nondistended, normoactive bowel sounds, soft to palpation, non-tender and non-distended Extremity no clubbing, cyanosis or edema Skin no rashes or lesions noted General Skin Exam: no breakdown Neuro CN's II-XII intact bilaterally, moves all extremities, no focal motor deficits and no sensory deficits noted Neuro Narrative: Patient has expressive aphasia Sensorium / Orientation: awake, alert, oriented to person and oriented to place Psych affect normal Patient was discharged home in stable condition on 03/11/2025 Weight / BMI Weight Weight: 56.5 kg Body Mass Index (BMI) 23.5 ABG / Lab / Microbiology Data 03/09/25 06:41 03/09/25 06:41 Radiography Diagnostic Testing: Radiology Impression Echocardiogram 03/08/25 23:49 Interpretation Summary The LV systolic function is normal. EF is 65 %. The left atrium is mildly enlarged. Mild (1+) mitral valve insufficiency. Mild tricuspid valve insufficiency. Right ventricular systolic pressure estimated to be 41 mmHg. Aortic sclerosis, no stenosis. Mild (1+) aortic valve insufficiency. Ordering Physician: Taina Lozano Referring Physician: Clyde Downing Performed By: Karen Culp RDCS D/C Instructions Discharge Diet: No restrictions Weight Bearing Status: Full weight bearing DC O2, CPAP, BIPAP Needs Home O2 Discharge instructions: No Meaningful Use Info Meaningful Use Meaningful Use Diagnoses (Choose all that apply): None applicable Ischemic Stroke Statin Dosing Therapy Reference: STATIN DOSE THERAPY REFERENCE: * Patients > 75 years receive moderate or high dose statin therapy. * Patients 75 years or YOUNGER should receive HIGH intensity statin dose unless contraindicated. You will be required to document reason for non-treatment if statin daily dose does not meet guidelines. HIGH DOSE STATIN THERAPY DAILY Atorvastatin > than or = to 40 mg Rosuvastatin > than or = to 20 mg Amlodipine + Atorvastatin > than or = to 2.5/40 mg Ezetimibe + Simvastatin 10/80 mg Simvastatin 80mg Discharge Plan Admission Admit Date/Time: 03/08/25 22:49 Primary Reason for Your Visit: altered mental status Attending Provider: Jarvis Amado Primary Care Provider: Clyde Downing Consulting Providers: Charlotte Pennington; Adela Flynn; James Sevilla; Amy Oconnor; Emerita Hernández; Taina Lozano; Kassie Leslie; Matty Kaminski; Jeri Gay; KINJAL BOYER; Robert Everett; Brooke Jordan Discharge Orders/Prescriptions Prescriptions: New rosuvastatin [Crestor] 10 mg tablet 10 mg PO DAILY Qty: 30 0RF Continued levetiracetam 500 mg tablet 500 mg PO BID sertraline 100 mg tablet 100 mg PO DAILY losartan 50 mg tablet 50 mg PO DAILY aspirin 81 mg Tablet,Chewable 81 mg PO BREAKFAST 30 Days Qty: 30 0RF Discontinued rosuvastatin 5 mg tablet 5 mg PO DAILY Referrals / Follow Up: Clyde Downing MD [Primary Care Provider] - Within 2 Weeks Disposition Disposition (needs filled in before D/C Order can be placed): Home Health Service Charges/Coding Visit Charges Inpatient E&M: 15326 Disch Hosp >30min
[2025-03-11 16:59] VITALS: BP 124/59; PULSE 74; RESP 16; TEMP 36.6; O2SAT 99
[2025-03-11 17:00] VITALS: BMI 23.5
--- NOTE | 2025-03-12 10:19 | CASEMGMT ---
KIERA called Adult Protective Services and spoke with Nick regarding patient's safety at home and ability to care for self. Nick stated she will see if there is anything they can do for patient. Klarissa Meyer [facility]
== END 2025-03-11 16:15 | disposition home health service (06) ==
LOC: ED 23:00 → PCU 23:15
PROVIDERS: Emergency Medicine; Admitting Provider Family Medicine; Emergency Provider Emergency Medicine; PCP Family Medicine; Visit Provider Internal Medicine
DX: G93.40 Encephalopathy, unspecified (principal); G40.909 Epilepsy, unspecified, not intractable, without status epilepticus; I12.9 Hypertensive chronic kidney disease with stage 1 through stage 4 chronic kidney disease, or unspecified chronic kidney disease; Z82.3 Family history of stroke; Z79.82 Long term (current) use of aspirin; S05.11XA Contusion of eyeball and orbital tissues, right eye, initial encounter; N18.2 Chronic kidney disease, stage 2 (mild); I69.920 Aphasia following unspecified cerebrovascular disease; Z79.899 Other long term (current) drug therapy; X58.XXXA Exposure to other specified factors, initial encounter; F32.A Depression, unspecified; F41.9 Anxiety disorder, unspecified; E78.5 Hyperlipidemia, unspecified
CPT/HCPCS: 36415; 70496; 70498; 70551; 71045; 80048; 80053; 80061; 81001; 83036; 83735; 84443; 85025; 85610; 93005; 93306; 94762; 95819; 96360; 96361; 96372; 97116; 97161; 97165; 97802; 99221; 99285; Q9967; A4216; G0378

== ENCOUNTER → 2025-07-29 | Outpatient (CLI) | payer MEDICARE, SELFPAY ==
[2025-07-29 15:52] LABS: AST(SGOT) 24 U/L (<=31); Alanine Aminotransfer ALT/SGPT 14 U/L (<=34); Albumin, Serum 4.1 g/dL (3.4-4.8); Alkaline Phosphatase 105 U/L (35-104); Anion Gap 11 (5-15); BUN 16 mg/dL (4-19); BUN/Creat Ratio 19.2 RATIO (10-20); Calcium,Total 9.7 mg/dL (7.6-11.0); Carbon Dioxide 23.9 mmol/L (21.0-32.0); Chloride 107 mmol/L (98-108); Cholesterol 195 mg/dL (<=200); Globulin 3.1 g/dL (2.2-4.2); Glucose 106 mg/dL (70-99); Low Density Lipoprotein Calc. 100 mg/dL; Potassium 4.1 mmol/L (3.3-5.1); Triglycerides 80 mg/dL; Very Low Density Lipoprotein 16 mg/dL (5-40); cholesterol:hdl ratio screen 2.43
== END | disposition home or self-care (01) ==
LOC: MTLAB 13:10
PROVIDERS: PCP Family Medicine; Referring Provider Family Medicine; Visit Provider Family Medicine
DX: E78.5 Hyperlipidemia, unspecified (principal)
CPT/HCPCS: 36415; 80053; 80061